=== PATIENT | female | born 1975 | race African-American/Black ===

== ENCOUNTER 2016-04-24 15:28 | Inpatient (IN) | payer MEDICARE, OTHER ==
[~2016-04-24 15:28] MED LIST: ROCURONIUM BROMIDE INJ 50 MG/5 ML VIAL IV ONE
[2016-04-24] MEDS ORDERED: ETOMIDATE INJ/PF 20 MG/10 ML SDV IV ONE ×2 (15:34→17:33)
[2016-04-24] MEDS ORDERED: LIDOCAINE 2% INJ-PF (100 MG/5 ML) SYRINGE ONE (15:35)
[2016-04-24] MEDS ORDERED: DEXTROSE 50%-WATER 25 GM/50 ML DISP.SYRIN IV ONE ×2 (15:42→17:38)
[2016-04-24] MEDS ORDERED: PROPOFOL 100 ML IV ONE (15:52)
[2016-04-24] MEDS ORDERED: ROCURONIUM BROMIDE INJ 50 MG/5 ML VIAL IV ONE (15:58)
[2016-04-24 16:13] LABS: ABSOLUTE EOSINOPHILS # (AUTO) 0.2 10^3/uL (0.0-0.6); ABSOLUTE LYMPHOCYTES (AUTO) 3.6 10^3/uL (0.5-4.7); ABSOLUTE MONOCYTES (AUTO) 0.6 10^3/uL (0.1-1.4); ABSOLUTE NEUT (AUTO) 12.2 10^3/uL (1.7-8.2); BASOPHILS % (AUTO) 0.2 % (0-2); HEMATOCRIT 34.2 % (36.0-47.0); HEMOGLOBIN 10.2 g/dL (12.0-15.5); HGB HCT DIFFERENCE -3.6; LYMPHOCYTES % (AUTO) 21.7 % (13-45); MEAN CORPUSCULAR HEMOGLOBIN 27.7 pg (27.0-33.4); MEAN CORPUSCULAR HGB CONC 29.9 g/dL (32.0-36.0); MEAN CORPUSCULAR VOLUME 93 fl (80-97); MONOCYTES % (AUTO) 3.4 % (3-13); RED CELL DISTRIBUTION WIDTH 20.1 % (11.5-14.0); SEGMENTED NEUTROPHILS % (AUTO) 73.7 % (42-78); WHITE BLOOD COUNT 16.5 10^3/uL (4.0-10.5)
[2016-04-24] MEDS ORDERED: PIPERACILLIN/TAZOBACTAM 3.375 GM VIAL IV ONE (16:29)
[2016-04-24] MEDS ORDERED: VANCOMYCIN HCL INJ 1000 MG VIAL IV ONE (16:29)
--- NOTE | 2016-04-24 16:52 | ER Document Report ---
ED Respiratory Problem - General Chief Complaint: Shortness Of Breath Stated Complaint: DIFFICULTY BREATHING Notes: The patient is a 40-year-old female, PMHx ESRD (TuThSa), presents from dialysis after she started to have shortness of breath over the past hour. She received 3/4s of her dialysis session before EMS was called. She received a DuoNeb some relief her symptoms. On arrival to the emergency room, the patient is tachypneic, somnolent and will not respond to questions or follow commands. Her Accu-Chek is 42, which improves after a bolus of D50. Family members at home have flu symptoms. Unable to obtain any additional history due to patient' s condition. TRAVEL OUTSIDE OF THE [place] IN LAST 30 DAYS: No - Related Data Allergies/Adverse Reactions: Shellfish * [Shellfish] Allergy (Verified 02/22/16 10:12) Past Medical History - General Information source: Relative, Transfer Record Cannot obtain history due to: Unstable vital signs - Social History Smoking Status: Unknown if Ever Smoked Family History: Reviewed & Not Pertinent - Past Medical History Cardiac Medical History: Reports: Hx DVT, Hx Hypercholesterolemia, Hx Hypertension Pulmonary Medical History: Reports: Hx Asthma, Hx Pneumonia Renal/ Medical History: Reports: Hx End Stage Renal Disease, Hx Hemodialysis, Hx Peritoneal Dialysis Malignancy Medical History: Reports: Hx Lung Cancer GI Medical History: Reports: Hx Gastroesophageal Reflux Disease Musculoskeltal Medical History: Reports Hx Gout Infectious Medical History: Denies: Hx MRSA Past Surgical History: Reports: Hx Abdominal Surgery - umbilical hernia repair, Hx Section, Hx Cholecystectomy, Hx Inguinal Hernia - Immunizations Hx Diphtheria, Pertussis, Tetanus Vaccination: Yes Hx Pneumococcal Vaccination: 06/12/12 Review of Systems - Review of Systems -: Yes ROS unobtainable due to patient's medical condition Physical Exam - Vital signs Vitals: Resp Pulse Ox 30 H 65 L 04/24/16 15:30 04/24/16 15:30 HR 121, BP 178/118, Pulse Ox 84% on NRB, RR 24 - Notes Notes: PHYSICAL EXAMINATION: GENERAL: Ill-appearing. HEAD: Atraumatic, normocephalic. EYES: Pupils equal round and reactive to light, extraocular movements intact, sclera anicteric, conjunctiva are normal. ENT: nares patent, oropharynx clear without exudates. Moist mucous membranes. NECK: Goiter, Normal range of motion, supple without lymphadenopathy LUNGS: Tachypnea, B/L crackles and rhonchi, Dialysis catheter over left chest wall HEART: Regular rhythm, tachypcardia ABDOMEN: Soft, nontender, normoactive bowel sounds. No guarding, no rebound. No masses appreciated. EXTREMITIES: Normal range of motion, no pitting or edema. No cyanosis. NEUROLOGICAL: Unable to follow commands SKIN: Warm, Dry, normal turgor, no rashes or lesions noted. Course - Re-evaluation Re-evalutation: On arrival to the emergency room, patient immediately intubated due to decreased mental status and hypoxia to low 80% on nonrebreather. Patient with large right-sided pneumonia and SIRS criteria. She does not require 30 cc/kg due to normal blood pressure and normal lactate. Patient will need gentle hydration due to ESRD. Spoke to patient's family and answered all questions. 04/24/16 17:[address] Segundo and he has accepted patient under Dr. Spears's service. - Vital Signs Vital signs: Temp Pulse Resp BP Pulse Ox 18 104/88 H 100 04/24/16 17:39 04/24/16 18:39 04/24/16 18:39 - Laboratory Result Diagrams: 04/24/16 15:41 04/24/16 16:45 Laboratory results interpreted by me: 04/24/16 04/24/16 04/24/16 15:41 16:45 16:45 WBC 16.5 H RBC 3.70 L Hgb 10.2 L Hct 34.2 L MCHC 29.9 L RDW 20.1 H Absolute Neutrophils 12.2 H VBG pH 7.21 L VBG pCO2 76.4 H* BUN 27 H Creatinine 2.09 H Est GFR ( Amer) 31 L Est GFR (Non-Af Amer) 26 L Glucose 181 H Calcium 7.9 L Alkaline Phosphatase 162 H Albumin 2.7 L - Diagnostic Test Radiology reviewed: Image reviewed, Reports reviewed Radiology results interpreted by me: CXR: Increased lung opacities of right middle and lower lobes - EKG Interpretation by Me EKG shows normal: Sinus rhythm, Intervals - LAFB Rate: Tachycardia Voltage: Consistant with LVH When compared to previous EKG there are: No significant change Procedures - Intubation Orotracheal Airway evaluation: Normal anatomy Mallampati Classification: Class 3 Medications: Etomidate, Other - Rocuronium Intubation method: Orotracheal Blade type: Gaye Blade size: 4 ETT size: 7.0 ETT secured at: Teeth ETT secured at (cm): 22 Breath Sounds after Intubation: Equal End tidal CO2 confirmed: Yes Ventilator settings: AC Tidal volume: 400 FiO2: 100 Respirations: 14 PEEP: 8 Post Intubation Xray: Yes Intubation Complications: No complications - Additional Procedures IO insertion Additional Procedures: IO insertion Notes: IO placed by MD into right humerus without complications. Critical Care Note - Critical Care Note Total time excluding time spent on procedures (mins): 55 Discharge - Discharge Clinical Impression: Hypoxia Pneumonia Qualifiers: Pneumonia type: due to unspecified organism Laterality: right Lung location: unspecified part of lung Qualified Code(s): J18.9 - Pneumonia, unspecified organism Hypercapnic respiratory failure Qualifiers: Chronicity: acute Qualified Code(s): J96.02 - Acute respiratory failure with hypercapnia Condition: Critical Disposition: ADMITTED INPATIENT Admitting Provider: [facility] Unit Admitted: ICU
[2016-04-24 17:10] LABS: VENOUS BLOOD BASE EXCESS 0.2 mmol/L; VENOUS BLOOD HCO3 29.7 mmol/L (20-32); VENOUS BLOOD PH 7.21 (7.30-7.42)
[2016-04-24 17:12] LABS: VENOUS BLOOD PCO2 76.4 mmHg (35-63)
[2016-04-24 17:24] LABS: ALANINE AMINOTRANSFERASE 20 U/L (9-52); ALBUMIN 2.7 g/dL (3.5-5.0); ALKALINE PHOSPHATASE 162 U/L (38-126); ANION GAP 10 (5-19); ASPARTATE AMINO TRANSFERASE 23 U/L (14-36); BILIRUBIN,TOTAL 0.7 mg/dL (0.2-1.3); BLOOD UREA NITROGEN 27 mg/dL (7-20); CALCIUM 7.9 mg/dL (8.4-10.2); CARBON DIOXIDE 28 mmol/L (22-30); CHLORIDE 100 mmol/L (98-107); CREATINE KINASE 99 U/L (30-135); CREATININE RESULT 2.09 mg/dL (0.52-1.25); GLUCOSE 181 mg/dL (75-110); POTASSIUM 3.6 mmol/L (3.6-5.0); SODIUM 138.4 mmol/L (137-145); TOTAL PROTEIN 6.8 g/dL (6.3-8.2)
[2016-04-24] MEDS ORDERED: PROPOFOL INJ 200 MG/20 ML VIAL IV ONE (17:33)
[2016-04-24 17:37] LABS: CREATINE KINASE MB 3.79 ng/mL (<4.55); TROPONIN I 0.026 ng/mL
[2016-04-24] MEDS ORDERED: LIDOCAINE 2% INJ (20 MG/ML) 20 ML MDV INJ ONE (17:38)
[2016-04-24 18:06] LABS: ADD HIVPANEL? NO; HIV (1 AND 2) ANTIBODY NEGATIVE (NEGATIVE)
[2016-04-24] MEDS ORDERED: NORMAL SALINE 1000 ML 1,000 ML IV ONE (19:00)
[2016-04-24] MEDS: FENTANYL CITRATE INJ/PF 100 MCG/2 ML AMPUL IV PRN ×2 (19:32→22:12)
--- NOTE | 2016-04-24 19:35 | EKG REPORT ---
SEVERITY:- ABNORMAL ECG - SINUS TACHYCARDIA ATRIAL PREMATURE COMPLEX PROBABLE LEFT ATRIAL ABNORMALITY LEFT ANTERIOR FASCICULAR BLOCK LVH WITH SECONDARY REPOLARIZATION ABNORMALITY : Confirmed by: John Pérez MD 24-Apr-2016 19:34:47
[2016-04-24 20:19] LABS: PROTHROMBIN TIME 16.5 SEC (11.4-15.4)
[2016-04-24 20:20] LABS: PARTIAL THROMBOPLASTIN TIME 34.9 SEC (23.5-35.8)
--- NOTE | 2016-04-24 21:09 | PDOC H&P ---
History of Present Illness Admission Date/PCP: 04/24/16 17:13 JORGE ALBERTO GARZA MD Patient complains of: Worsening shortness of breath History of Present Illness: FELISA MILES is a 40 year old female who was transported by EMS service from dialysis center due to development f SOB while on hemodialysis procedure. Patient demonstrated hypoxemia enroute necessitating administration of bronchodilator. Upon arrival in the ED there was episode of hypoglycemia, tachycardia and tachypnea. Her hypoglycemia was adequately and immediately corrected with dextrose solution infusion. In view of her associated altered mentation and concern for possible aspiration she was eventually intubated to protect her airway and address her hypoxemia. There is history of family member with flu like symptoms at home. Her comorbidites include lung cancer, Scleroderma with interstitial lung disease, ESRD on hemodialysis, hypertension, hyperlipidemia, GERD, Gouty arthritis Past Medical History Cardiac Medical History: Reports: DVT, Hyperlipidema, Hypertension Pulmonary Medical History: Reports: Asthma, Pneumonia Renal/ Medical History: Reports: End Stage Renal Disease Malignancy Medical History: Reports: Lung Cancer GI Medical History: Reports: Gastroesophageal Reflux Disease Musculoskeltal Medical History: Reports: Gout Infectious Medical History: Denies: Methicillin-Resistant Staph Aureus Past Surgical History Past Surgical History: Reports: Section, Cholecystectomy Social History Lives with: Spouse/Significant other Smoking Status: Unknown if Ever Smoked Frequency of Alcohol Use: None Hx Recreational Drug Use: No Hx Prescription Drug Abuse: No - Advance Directive Resuscitation Status: Full Code Family History Family History: Reviewed & Not Pertinent Parental Family History Reviewed: Yes Children Family History Reviewed: Yes Sibling(s) Family History Reviewed.: Yes Medication/Allergy Home Medications: Albuterol Sulfate [Ventolin HFA] 1 puff IH Q4HP PRN #17 gm 06/19/12 Lisinopril 20 mg PO DAILY 08/19/12 Prednisone 10 mg PO DAILY 08/19/12 Aspirin 81 mg PO DAILY 08/23/12 Lovastatin [Mevacor] 20 mg PO DAILY 08/23/12 Sildenafil Citrate [Viagra] 25 mg PO TID 08/23/12 Albuterol Sulfate [Albuterol Sulfate 2.5mg/3 mL] 1 vial NEB Q6HP PRN 08/25/12 Lansoprazole [Prevacid 30 mg Odt Tablet] 30 mg PO BIDACBS 08/25/12 Amlodipine Besylate [Norvasc 10 mg Tablet] 10 mg PO DAILY 12/02/12 Hydrocodone Bit/Acetaminophen [Lortab 7.5-500 mg/15 ml Elixir] 5 ml PO Q4 PRN # 160 solution 12/02/12 Hydrocodone/Acetaminophen [Lortab 2.5-167 mg/5 ml Oral Soln Udcup] 5 ml PO QID # 60 ml 06/28/13 Calcium Carbonate [Tums Chewable 500 mg Tab.chew] 500 mg PO Q12 #180 tab.chew Ipratropium/Albuterol Sulfate [Duoneb 3 ml Ampul] 3 ml NEB RTQ6 #120 vial.neb Metoprolol Succinate [Toprol Xl] 200 mg PO DAILY #90 tab.sr.24h 03/03/16 Allergies/Adverse Reactions: Shellfish * [Shellfish] Allergy (Verified 02/22/16 10:12) Review of Systems ROS unobtainable: Due to endotracheal tube, Due to mental status - on Diprivan infusion Physical Exam Vital Signs: Temp Pulse Resp BP Pulse Ox 18 104/88 H 100 04/24/16 17:39 04/24/16 18:39 04/24/16 18:39 Physical Exam: Acutely ill looking, intubated and vent supported. Sedated on Diprivan infusion. ET & OG tubes in situ. General appearance: PRESENT: thin Head exam: PRESENT: atraumatic, normocephalic Eye exam: PRESENT: conjunctiva pink, EOMI, PERRLA Mouth exam: PRESENT: moist Respiratory exam: PRESENT: crackles - at lung bases, decreased breath sounds - at lung bases Cardiovascular exam: PRESENT: RRR. ABSENT: diastolic murmur, rubs, systolic murmur GI/Abdominal exam: PRESENT: normal bowel sounds, soft Extremities exam: PRESENT: full ROM, pedal edema Musculoskeletal exam: PRESENT: deformity - related to arthritic changes Neurological exam: PRESENT: altered - on Diprivan infusion Skin exam: PRESENT: dry, warm Results Impressions: Chest X-Ray 04/24/16 15:50 IMPRESSION: 1. Increased pulmonary opacities of the right mid and lower lung with improved aeration of the apical lungs relative to 03/12/2016 radiograph. 2. Lines and tubes as above. Assessment & Plan - Diagnosis (1) SIRS due to infectious process with acute organ dysfunction Is this a current diagnosis for this admission?: YesPlan: See admitting physician orders for details. (2) Lobar pneumonia, unspecified organism Is this a current diagnosis for this admission?: YesPlan: See admitting physician orders for details. (3) HTN (hypertension) Qualifiers: Hypertension type: essential hypertension Qualified Code(s): I10 - Essential (primary) hypertension Is this a current diagnosis for this admission?: YesPlan: See admitting physician orders for details. (4) HLD (hyperlipidemia) Qualifiers: Hyperlipidemia type: pure hypercholesterolemia Qualified Code(s): E78.00 - Pure hypercholesterolemia, unspecified; E78.0 - Pure hypercholesterolemia Is this a current diagnosis for this admission?: YesPlan: See admitting physician orders for details. (5) Gouty arthritis Is this a current diagnosis for this admission?: YesPlan: See admitting physician orders for details. (6) End-stage renal disease (ESRD) Is this a current diagnosis for this admission?: YesPlan: See admitting physician orders for details. (7) Malignant neoplasm of lung Qualifiers: Laterality: right Lung location: lower lobe of lung Qualified Code(s): C34.31 - Malignant neoplasm of lower lobe, right bronchus or lung Is this a current diagnosis for this admission?: YesPlan: See admitting physician orders for details. (8) Systemic sclerosis with lung involvement Is this a current diagnosis for this admission?: YesPlan: See admitting physician orders for details. - Time Time Spent: 50 to 70 Minutes - CODE STATUS was discussed, patient remains full code. Surrogate decision-maker unchanged. Multiple medical problems were addressed.More than 50% of the time spent coordinating care, discussing management plans with involved caregivers. Management plans discussed with involved personnels. Medical decision making was of high complexity. Medications reviewed and adjusted accordingly: Yes Anticipated discharge: Other Within: Other - Inpatient Certification Based on my medical assessment, after consideration of the patient's comorbidities, presenting symptoms, or acuity I expect that the services needed warrant INPATIENT care.: Yes I certify that my determination is in accordance with my understanding of Medicare's requirements for reasonable and necessary INPATIENT services [42 CFR 412.3e].: Yes Medical Necessity: Need Close Monitoring Due to Risk of Patient Decompensation, Need For IV Fluids, Need For Continuous Telemetry Monitoring, Need for Nebulizer Therapy and Monitoring of Response, Need for IV Antibiotics, Risk of Complication if Not Cared For in Hospital Post 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
[2016-04-24] MEDS ORDERED: ACETAMINOPHEN 650 MG SUPP.RECT PR PRN (21:21)
[2016-04-24] MEDS ORDERED: ACETAMINOPHEN 650 MG SUPP.RECT PR ONE (21:24)
[2016-04-24] MEDS: CLINDAMYCIN 600 MG/D5W RTU 50 ML IV SCH (22:11)
[2016-04-24] MEDS: HEPARIN SOD (PORCINE) 5,000 UNIT/ML 1 ML SYRINGE SUBCUT SCH (22:11)
[2016-04-25] MEDS: FENTANYL CITRATE INJ/PF 100 MCG/2 ML AMPUL IV PRN ×7 (00:15→08:44)
[2016-04-25] MEDS: PROPOFOL 100 ML IV PRN ×3 (01:56→16:03)
[2016-04-25] MEDS: CLINDAMYCIN 600 MG/D5W RTU 50 ML IV SCH ×3 (05:58→21:29)
[2016-04-25] MEDS: LANSOPRAZOLE 30 MG TAB.RAP.DR PO SCH (05:59)
[2016-04-25] MEDS: HEPARIN SOD (PORCINE) 5,000 UNIT/ML 1 ML SYRINGE SUBCUT SCH ×3 (05:59→21:30)
[2016-04-25] MEDS: NORMAL SALINE 1000 ML 1,000 ML IV PRN (06:00)
[2016-04-25 06:30] LABS: ALANINE AMINOTRANSFERASE 22 U/L (9-52); ALBUMIN 2.4 g/dL (3.5-5.0); ALKALINE PHOSPHATASE 164 U/L (38-126); ANION GAP 10 (5-19); ASPARTATE AMINO TRANSFERASE 18 U/L (14-36); BILIRUBIN,TOTAL 0.5 mg/dL (0.2-1.3); BLOOD UREA NITROGEN 33 mg/dL (7-20); CALCIUM 7.6 mg/dL (8.4-10.2); CARBON DIOXIDE 26 mmol/L (22-30); CHLORIDE 102 mmol/L (98-107); CREATININE RESULT 2.95 mg/dL (0.52-1.25); GLUCOSE 73 mg/dL (75-110); MAGNESIUM 1.7 mg/dL (1.6-2.3); PHOSPHORUS 2.4 mg/dL (2.5-4.5); POTASSIUM 3.4 mmol/L (3.6-5.0); SODIUM 137.9 mmol/L (137-145); TOTAL PROTEIN 6.2 g/dL (6.3-8.2)
[2016-04-25 08:43] LABS: ABSOLUTE LYMPHOCYTES (AUTO) 1.1 10^3/uL (0.5-4.7); ABSOLUTE MONOCYTES (AUTO) 0.3 10^3/uL (0.1-1.4); ABSOLUTE NEUT (AUTO) 10.7 10^3/uL (1.7-8.2); BASOPHILS % (AUTO) 0.4 % (0-2); EOSINOPHILS % (AUTO) 0.4 % (0-6); HEMOGLOBIN 9.9 g/dL (12.0-15.5); HGB HCT DIFFERENCE -2.3; MEAN CORPUSCULAR HEMOGLOBIN 27.5 pg (27.0-33.4); MONOCYTES % (AUTO) 2.8 % (3-13); RED BLOOD COUNT 3.62 10^6/uL (3.72-5.28); RED CELL DISTRIBUTION WIDTH 18.8 % (11.5-14.0); SEGMENTED NEUTROPHILS % (AUTO) 87.4 % (42-78); WHITE BLOOD COUNT 12.3 10^3/uL (4.0-10.5)
[2016-04-25 08:44] LABS: MEAN CORPUSCULAR VOLUME 89 fl (80-97)
--- NOTE | 2016-04-25 09:27 | PDOC PROGRESS REPORT ---
Subjective Progress Note for:: 04/25/16 Subjective:: Remain intubated and vent supported. Issue f elevated temperature since last clinical evaluation. Remain on IV Rocephin and Cleocin coverage. There was raised concern about unequal pupils with left greater than right necessitating CT scan of head for r/o intracranial pathology. There is copious tracheal secretion. Physical Exam Vital Signs: Temp Pulse Resp BP Pulse Ox 100.6 F H 118 H 12 102/89 H 100 04/25/16 06:13 04/24/16 22:40 04/25/16 06:13 04/25/16 06:13 04/25/16 06:13 Intake & Output 04/24/16 04/25/16 04/26/16 06:59 06:59 06:59 Intake Total 503 Output Total 100 Balance 403 Weight 47.4 kg Physical Exam: Acutely ill looking, intubated and vent supported. ET & OG tubes in situ. Remain on IV Diprivan infusion for sedation. General appearance: PRESENT: thin Head exam: PRESENT: atraumatic, normocephalic Eye exam: PRESENT: conjunctiva pink, EOMI, PRRLA with inequality in size left > right. Mouth exam: PRESENT: moist Respiratory exam: PRESENT: crackles - at lung bases, decreased breath sounds - at lung bases Cardiovascular exam: PRESENT: RRR. ABSENT: diastolic murmur, rubs, systolic murmur GI/Abdominal exam: PRESENT: normal bowel sounds, soft Extremities exam: PRESENT: full ROM, pedal edema Musculoskeletal exam: PRESENT: deformity - related to arthritic changes Neurological exam: PRESENT: altered - on Diprivan infusion but move all extremities Skin exam: PRESENT: dry, warm Results Laboratory Results: 04/25/16 08:31 04/25/16 06:00 04/25/16 04/25/16 04/25/16 06:00 06:00 08:31 WBC Cancelled 12.3 H RBC Cancelled 3.62 L Hgb Cancelled 9.9 L Hct Cancelled 32.0 L MCV Cancelled 89 D MCH Cancelled 27.5 MCHC Cancelled 31.0 L RDW Cancelled 18.8 H Plt Count Cancelled 256 Seg Neutrophils % Cancelled 87.4 H Lymphocytes % Cancelled 9.0 L Monocytes % Cancelled 2.8 L Eosinophils % Cancelled 0.4 Basophils % Cancelled 0.4 Absolute Neutrophils Cancelled 10.7 H Absolute Lymphocytes Cancelled 1.1 Absolute Monocytes Cancelled 0.3 Absolute Eosinophils Cancelled 0.0 Absolute Basophils Cancelled 0.0 Sodium 137.9 Potassium 3.4 L Chloride 102 Carbon Dioxide 26 Anion Gap 10 BUN 33 H Creatinine 2.95 H Est GFR ( Amer) 21 L Est GFR (Non-Af Amer) 17 L Glucose 73 L Calcium 7.6 L Phosphorus 2.4 L Magnesium 1.7 Total Bilirubin 0.5 AST 18 ALT 22 Alkaline Phosphatase 164 H Total Protein 6.2 L Albumin 2.4 L 04/24/16 21:21 Troponin I 0.068 Impressions: Chest X-Ray 04/25/16 06:00 IMPRESSION: 1. Interval improvement of the diffuse parenchymal and interstitial opacities throughout the lungs comparison the prior study with the majority the opacities noted in the bases. 2. Support tubes and lines as above. Head CT 04/25/16 07:38 IMPRESSION: NORMAL BRAIN CT WITHOUT CONTRAST. Assessment & Plan - Diagnosis (1) SIRS due to infectious process with acute organ dysfunction Is this a current diagnosis for this admission?: YesPlan: See attending physician orders for details. (2) Lobar pneumonia, unspecified organism Is this a current diagnosis for this admission?: YesPlan: See attending physician orders for details. Improving chest X ray opacities. I discussed case with Dr. Estrada, warehouse attendant, for input in care. (3) HTN (hypertension) Qualifiers: Hypertension type: essential hypertension Qualified Code(s): I10 - Essential (primary) hypertension Is this a current diagnosis for this admission?: Yes (4) HLD (hyperlipidemia) Qualifiers: Hyperlipidemia type: pure hypercholesterolemia Qualified Code(s): E78.00 - Pure hypercholesterolemia, unspecified; E78.0 - Pure hypercholesterolemia Is this a current diagnosis for this admission?: Yes (5) Gouty arthritis Is this a current diagnosis for this admission?: Yes (6) End-stage renal disease (ESRD) Is this a current diagnosis for this admission?: YesPlan: See attending physician orders for details. Follow up on nephrology service consultation request (7) Malignant neoplasm of lung Qualifiers: Laterality: right Lung location: lower lobe of lung Qualified Code(s): C34.31 - Malignant neoplasm of lower lobe, right bronchus or lung Is this a current diagnosis for this admission?: Yes (8) Systemic sclerosis with lung involvement Is this a current diagnosis for this admission?: Yes - Time Time Spent with patient: 25-34 minutes Medications reviewed and adjusted accordingly: Yes Anticipated discharge: Other Within: Other - Inpatient Certification Medical Necessity: Need Close Monitoring Due to Risk of Patient Decompensation, Need For IV Fluids, Need For Continuous Telemetry Monitoring, Need for Nebulizer Therapy and Monitoring of Response, Need for Pain Control, Need for IV Antibiotics, Risk of Complication if Not Cared For in Hospital Post Hospital Care: Other - Plan Summary Plan Summary: Continue current antibiotic and supportive care plan. Her overall prognosis remain guided. She remain full code status as per my discussion with spouse upon admission and expressed patient wish.
[2016-04-25] MEDS: CEFTRIAXONE 1 GM/D5W RTU 50 ML IV SCH (09:49)
[2016-04-25] MEDS: MORPHINE SULFATE 10 MG/ML INJ IV PRN ×2 (11:56→17:22)
[2016-04-26] MEDS ORDERED: HEPARIN SOD (PORCINE) 1,000 UNIT/ML 10 ML VIAL IV PRN (05:00)
[2016-04-26] MEDS: NORMAL SALINE 1000 ML 1,000 ML IV PRN (06:08)
[2016-04-26] MEDS: HEPARIN SOD (PORCINE) 5,000 UNIT/ML 1 ML SYRINGE SUBCUT SCH ×3 (06:17→21:10)
[2016-04-26] MEDS: LANSOPRAZOLE 30 MG TAB.RAP.DR PO SCH (06:21)
[2016-04-26] MEDS: CLINDAMYCIN 600 MG/D5W RTU 50 ML IV SCH ×3 (06:21→21:09)
[2016-04-26] MEDS: PROPOFOL 100 ML IV PRN ×4 (06:24→21:10)
[2016-04-26] MEDS ORDERED: EPOETIN ALFA INJ 20000 UNIT/1 ML VIAL (RENAL) IV PRN (10:31)
[2016-04-26] MEDS ORDERED: DEXTROSE 50%-WATER 25 GM/50 ML DISP.SYRIN IV ONE (11:13)
[2016-04-26] MEDS ORDERED: DEXTROSE 50%-WATER SYRINGE 12.5 GM/25 ML DOSE IV PRN (11:31)
[2016-04-26] MEDS: CEFTRIAXONE 1 GM/D5W RTU 50 ML IV SCH (12:23)
--- NOTE | 2016-04-26 15:28 | PDOC CONSULTATION ---
Consultation Consult Date: 04/26/16 Consult reason:: Hemodialysis in the setting of sepsis. History of Present Illness Admission Date/PCP: 04/24/16 19:37 JORGE ALBERTO GARZA MD History of Present Illness: Mrs. rivera mild his 40 years old -[place] lady with a past medical history significant with significant comorbidity illnesses including scleroderma with interstitial lung disease, systemic lupus, hypertension, recent diagnosis of right lung cancer and ESRD on hemodialysis was brought to the ER with history of progressive shortness of breath. She went into severe respiratory failure and route and had to be intubated. She was found to be hypoglycemic besides hypoxemic and appropriate treatment measures were instituted in the ER and then later transferred to the ICU. She has been begun on multiple antibiotics based on chest x-ray findings of possible broncho- pneumonia. Currently she is intubated and sedated. Therefore history was gathered from going through her nose and discussing with the treating nurse in the ICU. Currently she is undergoing dialysis without any issues. Treatment orders with the with the dialysis nurse. We will plan to remove no fluid and in fact she might have to be made positive towards the end of dialysis as looking at her vital signs.She is also found to be hypoglycemic and D50 has been ordered by me. Past Medical History Cardiac Medical History: Reports: DVT, Hyperlipidemia, Hypertension-primary Pulmonary Medical History: Reports: Asthma, Pneumonia Renal/ Medical History: Reports: End Stage Renal Disease Malignancy Medical History: Reports: Lung Cancer GI Medical History: Reports: Gastroesophageal Reflux Disease Musculoskeltal Medical History: Reports: Gout Infectious Medical History: Denies: Methicillin-resist Staph Aureus Past Surgical History Past Surgical History: Reports: Section, Cholecystectomy Social History Lives with: Spouse/Significant other Smoking Status: Unknown if Ever Smoked Frequency of Alcohol Use: None Hx Recreational Drug Use: No Hx Prescription Drug Abuse: No - Advance Directive Resuscitation Status: Full Code Family History Parental Family History Reviewed: No - She is intubated and sedated. Chart review was done. Children Family History Reviewed: No Sibling(s) Family History Reviewed.: No Medication/Allergy Home Medications: Ipratropium/Albuterol Sulfate [Iprat-Albut 0.5-3(2.5) mg/3 ml] 3 ml NEB Q6 04/26 Lactulose [Enulose 10 gm/15 mL Oral Solution] 30 ml PO Q12 04/26/16 Lorazepam [Ativan 1 mg Tablet] 0.5 mg PO Q8H 04/26/16 Metoprolol Tartrate [Lopressor 100 mg Tablet] 100 mg PO Q12 04/26/16 Allergies/Adverse Reactions: Shellfish * [Shellfish] Allergy (Verified 02/22/16 10:12) Review of Systems Review of Systems: Unable to be obtained from the patient as she is sedated and intubated. Chart review was therefore done. Physical Exam Vital Signs: Temp Pulse Resp BP Pulse Ox 98.8 F 128 H 18 129/97 H 97 04/26/16 12:00 04/26/16 12:00 04/26/16 12:00 04/26/16 12:00 04/26/16 12:15 Intake & Output 04/25/16 04/26/16 04/27/16 06:59 06:59 06:59 Intake Total 503 1389 400 Output Total 100 275 30 Balance 403 1114 370 Weight 47.4 kg 49 kg Exam: Intubated and sedated. Undergoing dialysis now. Neck exam: ABSENT: lymphadenopathy, meningismus, tenderness, thyromegaly, tracheal deviation Respiratory exam: PRESENT: clear to auscultation frankie, rhonchi. ABSENT: crackles , stridor Cardiovascular exam: PRESENT: +S1, +S2 GI/Abdominal exam: PRESENT: normal bowel sounds, soft. ABSENT: distended, firm , tenderness Extremities exam: ABSENT: pedal edema Skin exam: PRESENT: warm. ABSENT: dry, mottled, rash Results Laboratory Results: 04/25/16 08:31 04/25/16 06:00 04/26/16 12:18 Triglycerides 243 H 04/24/16 21:21 Troponin I 0.068 Impressions: Chest X-Ray 04/25/16 06:00 IMPRESSION: 1. Interval improvement of the diffuse parenchymal and interstitial opacities throughout the lungs comparison the prior study with the majority the opacities noted in the bases. 2. Support tubes and lines as above. Head CT 04/25/16 07:38 IMPRESSION: NORMAL BRAIN CT WITHOUT CONTRAST. Assessment & Plan - Diagnosis (1) HTN (hypertension) Qualifiers: Hypertension type: essential hypertension Qualified Code(s): I10 - Essential (primary) hypertension Is this a current diagnosis for this admission?: YesPlan: Stable continue on current medications (2) Hypercapnic respiratory failure Qualifiers: Chronicity: acute Qualified Code(s): J96.02 - Acute respiratory failure with hypercapnia Plan: Intubated and sedated (3) Pneumonia Qualifiers: Pneumonia type: due to unspecified organism Laterality: right Lung location: unspecified part of lung Qualified Code(s): J18.9 - Pneumonia, unspecified organism Plan: On antibiotics awaiting culture for modifications (4) SIRS due to infectious process with acute organ dysfunction Is this a current diagnosis for this admission?: Yes (5) End-stage renal disease (ESRD) Is this a current diagnosis for this admission?: YesPlan: Patient undergoing dialysis now without any issues. Vital signs are stable. Discuss orders with treating nurse. She has hypoglycemia which needs to be corrected with D50. Will remove no fluid and in fact might have to give her fluid back and keep a positive given her septic state. (6) History of lung cancer in adulthood Plan: As per Dr. Garza.. (7) Scleroderma Plan: Associated lung disease . Also history of associated SLE.
[2016-04-26 19:09] LABS: ALANINE AMINOTRANSFERASE 25 U/L (9-52); ALBUMIN 2.2 g/dL (3.5-5.0); ALKALINE PHOSPHATASE 158 U/L (38-126); ANION GAP 11 (5-19); ASPARTATE AMINO TRANSFERASE 22 U/L (14-36); BILIRUBIN,TOTAL 0.5 mg/dL (0.2-1.3); BLOOD UREA NITROGEN 21 mg/dL (7-20); CALCIUM 7.7 mg/dL (8.4-10.2); CARBON DIOXIDE 27 mmol/L (22-30); CHLORIDE 101 mmol/L (98-107); GLUCOSE 41 mg/dL (75-110); POTASSIUM 3.6 mmol/L (3.6-5.0); SODIUM 138.7 mmol/L (137-145)
[2016-04-26 20:00] LABS: ABSOLUTE EOSINOPHILS # (AUTO) 0.2 10^3/uL (0.0-0.6); ABSOLUTE LYMPHOCYTES (AUTO) 0.7 10^3/uL (0.5-4.7); ABSOLUTE MONOCYTES (AUTO) 0.2 10^3/uL (0.1-1.4); ABSOLUTE NEUT (AUTO) 7.4 10^3/uL (1.7-8.2); BASOPHILS % (AUTO) 0.2 % (0-2); EOSINOPHILS % (AUTO) 2.6 % (0-6); HEMOGLOBIN 8.4 g/dL (12.0-15.5); HGB HCT DIFFERENCE -1.8; LYMPHOCYTES % (AUTO) 8.4 % (13-45); MEAN CORPUSCULAR HEMOGLOBIN 27.5 pg (27.0-33.4); MEAN CORPUSCULAR HGB CONC 31.2 g/dL (32.0-36.0); MEAN CORPUSCULAR VOLUME 88 fl (80-97); MONOCYTES % (AUTO) 2.7 % (3-13); RED BLOOD COUNT 3.06 10^6/uL (3.72-5.28); RED CELL DISTRIBUTION WIDTH 19.7 % (11.5-14.0); SEGMENTED NEUTROPHILS % (AUTO) 86.1 % (42-78); WHITE BLOOD COUNT 8.6 10^3/uL (4.0-10.5)
[2016-04-26 20:06] LABS: ARTERIAL BLOOD BASE EXCESS 0.8 mmol/L; ARTERIAL BLOOD O2 SATURATION 97.9 % (94-98)
--- NOTE | 2016-04-26 22:09 | PDOC TRANSFER SUMMARY ---
General Admission Date/PCP: 04/24/16 19:37 JORGE ALBERTO GARZA MD Admission Date: 04/24/16 Transfer Date: 04/26/16 Accepting Facility: [facility] Res[facility] Status: Full Code - Transfer Diagnosis (1) Acute respiratory failure Is this a current diagnosis for this admission?: Yes (2) Malignant neoplasm of lung Is this a current diagnosis for this admission?: Yes (3) Pulmonary fibrosis Is this a current diagnosis for this admission?: Yes (4) Scleroderma Is this a current diagnosis for this admission?: Yes (5) Systemic sclerosis with lung involvement Is this a current diagnosis for this admission?: Yes - Transfer Medications Home Medications: Ipratropium/Albuterol Sulfate [Iprat-Albut 0.5-3(2.5) mg/3 ml] 3 ml NEB Q6 04/26 Lactulose [Enulose 10 gm/15 mL Oral Solution] 30 ml PO Q12 04/26/16 Lorazepam [Ativan 1 mg Tablet] 0.5 mg PO Q8H 04/26/16 Metoprolol Tartrate [Lopressor 100 mg Tablet] 100 mg PO Q12 04/26/16 Transfer Medications: Current Medications Acetaminophen (Tylenol 650 Mg Supp) 650 mg UT Q4HP PRN PRN Reason: FEVER > 102 Stop: 05/24/16 21:20 Last Admin: 04/24/16 21:30 Dose: 650 mg Dextrose (Dextrose Inj 50% Syringe (25 Gm/50 Ml)) 12.5 gm IV .DIALYSIS PRN; Protocol PRN Reason: POST-DIALYSIS Stop: 04/26/16 23:59 Last Admin: 04/26/16 21:52 Dose: 12.5 gm Epoetin Trung (Procrit Inj 20,000 Unit/1 Ml Vial (Renal)) 10,000 unit IV .DIALYSIS PRN PRN Reason: THIS MED IS NOT "PRN" Stop: 04/26/16 23:59 Last Admin: 04/26/16 11:32 Dose: 10,000 unit Heparin Sodium (Porcine) (Heparin Inj 5,000 Units/Ml 1 Ml Syringe) 5,000 unit SUBCUT Q8 [facility] Stop: 05/24/16 21:59 Last Admin: 04/26/16 21:10 Dose: 5,000 unit Heparin Sodium (Porcine) (Heparin Inj 1,000 Unit/Ml 10 Ml Vial) 4,000 unit IV .DIALYSIS PRN PRN Reason: THIS MED IS NOT "PRN" Stop: 04/26/16 23:59 Last Admin: 04/26/16 11:57 Dose: 4,000 unit Ceftriaxone Sodium/Dextrose (Rocephin Rtu 1 Gm/D5w 50 Ml Premix) 50 mls @ 100 mls/hr IV DAILY [facility] Stop: 05/02/16 09:59 Last Admin: 04/26/16 12:23 Dose: 50 ml Clindamycin Phosphate/Dextrose (Cleocin Rtu 600 Mg/D5w 50 Ml Premix) 50 mls @ 50 mls/hr IV Q8 [facility] Stop: 05/01/16 21:59 Last Admin: 04/26/16 21:09 Dose: 50 ml Sodium Chloride (Nacl 0.9% 1000 Ml Iv Soln) 1,000 mls @ 50 mls/hr IV CONTINUOUS PRN PRN Reason: THIS MED IS NOT "PRN" Stop: 05/24/16 19:41 Last Admin: 04/26/16 06:08 Dose: 1,000 ml Propofol (Diprivan Rtu 1000 Mg/100 Ml Inf.Bottle) 100 mls @ 0 mls/hr IV CONTINUOUS PRN; Titrate PRN Reason: THIS MED IS NOT "PRN" Stop: 05/24/16 20:35 Last Admin: 04/26/16 21:10 Dose: 100 ml Lansoprazole (Prevacid 30 Mg Odt Tablet) 30 mg PO Q6AM [facility] Stop: 05/25/16 05:59 Last Admin: 04/26/16 06:21 Dose: 30 mg Morphine Sulfate (Morphine 10 Mg/Ml Inj) 2 mg IV Q4HP PRN PRN Reason: FOR PAIN Stop: 05/02/16 09:13 Last Admin: 04/25/16 17:22 Dose: 2 mg - Allergies Allergies/Adverse Reactions: Shellfish * [Shellfish] Allergy (Verified 02/22/16 10:12) Hospital Course Hospital Course: Patient was admitted because of acute respiratory failure due to pneumonia, she was intubated on mechanical ventilation and intensive care unit. She has systemic sclerosis complicated with interstitial lung disease and malignant neoplasm of the lung with end-stage renal disease on hemodialysis. Patient is on IV antibiotic, Rocephin and vancomycin, adequate oxygenation is maintained on present mechanical ventilation with the present settings. Patient is being transferred to [facility] because there is no pulmonary presently international logistics coordinator in the hospital. She was hemodialyzed today but very minimal fluid was removed. Physical Exam Vital Signs: Temp Pulse Resp BP Pulse Ox 100.0 F 93 15 115/88 H 100 04/26/16 20:00 04/26/16 20:00 04/26/16 20:00 04/26/16 19:42 04/26/16 20:15 Intake & Output 04/25/16 04/26/16 04/27/16 06:59 06:59 06:59 Intake Total 503 1389 1245 Output Total 100 275 180 Balance 403 1114 1065 Weight 47.4 kg 49 kg Eye exam: PRESENT: PERRLA Respiratory exam: PRESENT: rales Cardiovascular exam: PRESENT: +S1, +S2 GI/Abdominal exam: PRESENT: soft Results Laboratory Results: 04/26/16 19:50 04/26/16 18:43 04/26/16 04/26/16 04/26/16 12:18 18:23 18:43 WBC Cancelled RBC Cancelled Hgb Cancelled Hct Cancelled MCV Cancelled MCH Cancelled MCHC Cancelled RDW Cancelled Plt Count Cancelled Seg Neutrophils % Cancelled Lymphocytes % Cancelled Monocytes % Cancelled Eosinophils % Cancelled Basophils % Cancelled Absolute Neutrophils Cancelled Absolute Lymphocytes Cancelled Absolute Monocytes Cancelled Absolute Eosinophils Cancelled Absolute Basophils Cancelled Carbonic Acid Cancelled HCO3/H2CO3 Ratio Cancelled ABG pH Cancelled ABG pCO2 Cancelled ABG pO2 Cancelled ABG HCO3 Cancelled ABG O2 Saturation Cancelled ABG Base Excess Cancelled FiO2 Cancelled Sodium Potassium Chloride Carbon Dioxide Anion Gap BUN Creatinine Est GFR ( Amer) Est GFR (Non-Af Amer) Glucose Calcium Total Bilirubin AST ALT Alkaline Phosphatase Total Protein Albumin Triglycerides 243 H 04/26/16 04/26/16 04/26/16 18:43 19:50 19:55 WBC 8.6 RBC 3.06 L Hgb 8.4 L Hct 27.0 L MCV 88 MCH 27.5 MCHC 31.2 L RDW 19.7 H Plt Count 256 Seg Neutrophils % 86.1 H Lymphocytes % 8.4 L Monocytes % 2.7 L Eosinophils % 2.6 Basophils % 0.2 Absolute Neutrophils 7.4 Absolute Lymphocytes 0.7 Absolute Monocytes 0.2 Absolute Eosinophils 0.2 Absolute Basophils 0.0 Carbonic Acid 1.19 HCO3/H2CO3 Ratio 21:1 ABG pH 7.42 ABG pCO2 39.7 ABG pO2 103.7 H ABG HCO3 25.2 ABG O2 Saturation 97.9 ABG Base Excess 0.8 FiO2 35% Sodium 138.7 Potassium 3.6 Chloride 101 Carbon Dioxide 27 Anion Gap 11 BUN 21 H Creatinine 2.30 H Est GFR ( Amer) 28 L Est GFR (Non-Af Amer) 23 L Glucose 41 L Calcium 7.7 L Total Bilirubin 0.5 AST 22 ALT 25 Alkaline Phosphatase 158 H Total Protein 6.0 L Albumin 2.2 L Triglycerides 04/24/16 21:21 Troponin I 0.068 Impressions: Head CT 04/25/16 07:38 IMPRESSION: NORMAL BRAIN CT WITHOUT CONTRAST. Chest CT 04/26/16 00:00 IMPRESSION: 1. CHRONIC CHANGES IN THE LUNGS. BILATERAL PLEURAL EFFUSIONS WITH BASILAR INFILTRATES. ROUNDED MASSLIKE DENSITY IN THE RIGHT LOWER LOBE MAY BE DUE TO A LUNG MASS, INFECTION, OR ATELECTASIS. THIS DOES APPEAR TO BE SLIGHTLY LARGER COMPARED TO THE PRIOR STUDY, ALTHOUGH INDISTINCTLY VISUALIZED. 2. CARDIOMEGALY. LARGE PERICARDIAL EFFUSION. THESE FINDINGS APPEAR UNCHANGED. Chest X-Ray 04/26/16 00:00 IMPRESSION: NO CHANGE IN APPEARANCE OF THE CHEST.
[2016-04-27 02:25] VITALS: BP 106/77
[2016-04-27] MEDS: PROPOFOL 100 ML IV PRN (02:38)
== END 2016-04-27 03:25 | disposition short-term general hospital (02) | DRG 871 ==
LOC: ER 15:28 → EH 17:13 → UNDOADMIN 17:13 → ICU 19:37 → EH 21:39 → ICU 21:39
PROVIDERS: ADMIT Internal Medicine; ATTEND Internal Medicine
PROC: 0BH17EZ Insertion of Endotracheal Airway into Trachea, Via Natural or Artificial Opening (ICD-10-PCS; principal; 2016-04-24)
PROC: 5A1945Z Respiratory Ventilation, 24-96 Consecutive Hours (ICD-10-PCS; 2016-04-24)
PROC: 0XH833Z Insertion of Infusion Device into Right Upper Arm, Percutaneous Approach (ICD-10-PCS; 2016-04-24)
PROC: 5A1D00Z (ICD-10-PCS; 2016-04-26)
DX: A41.9 Sepsis, unspecified organism (principal); J18.9 Pneumonia, unspecified organism; J96.02 Acute respiratory failure with hypercapnia; N18.6 End stage renal disease; I12.0 Hypertensive chronic kidney disease with stage 5 chronic kidney disease or end stage renal disease; C34.31 Malignant neoplasm of lower lobe, right bronchus or lung; M34.81 Systemic sclerosis with lung involvement; E78.5 Hyperlipidemia, unspecified; K21.9 Gastro-esophageal reflux disease without esophagitis; J84.10 Pulmonary fibrosis, unspecified; M32.9 Systemic lupus erythematosus, unspecified; M1A.9XX1 Chronic gout, unspecified, with tophus (tophi); Z79.82 Long term (current) use of aspirin; Z79.51 Long term (current) use of inhaled steroids; Z79.52 Long term (current) use of systemic steroids; Z99.2 Dependence on renal dialysis; Z86.718 Personal history of other venous thrombosis and embolism
CPT/HCPCS: 36415; 70450; 71010; 71250; 80053; 82550; 82553; 82803; 82962; 83605; 83735; 84100; 84478; 84484; 85025; 85610; 85730; 86701; 87040; 87070; 87205; 87804; 93005; 93010; 94002; 94003; 96374; 99291; J0696; J1644; J2001; J2270; J2543; J2704; J3010; J3370; J3490; J7030; L3650; Q4081

== ENCOUNTER 2016-05-18 02:16 | Inpatient (IN) | payer MEDICARE, OTHER ==
--- NOTE | 2016-05-18 03:24 | ER Document Report ---
ED General - General Chief Complaint: General Weakness Stated Complaint: WEAKNESS Mode of Arrival: Medic Information source: Patient, Relative - Notes: Patient presents to the emergency department via EMS for change in LOC. Hospital reports for the last couple days. Patient has been lethargic. He reports she complained of having hot spells. When he heard a loud bang and he found patient on the floor. Patient was unconscious, incontinent of stool and urine. They cleaned patient up she complained of some nausea, had dry heaves, she took her antinausea medicine. He denies fever vomiting diarrhea. He reports she started taking Zoloft 3 days ago. Patient reports she's also take amoxicillin. Patient reports she has not been eating or drinking that much because she was thrush and it hurts her mouth. She is taking amoxicillin. Patient has a history of scleroderma. Patient also history of lung cancer last chemotherapy was over a year ago. Patient also has end-stage renal disease and on dialysis. TRAVEL OUTSIDE OF THE [place] IN LAST 30 DAYS: No - HPI Onset: Just prior to arrival Onset/Duration: Sudden Quality of pain: Achy Exacerbated by: Denies Relieved by: Denies Similar symptoms previously: Yes Recently seen / treated by doctor: Yes - Related Data Allergies/Adverse Reactions: Shellfish * [Shellfish] Allergy (Verified 02/22/16 10:12) Past Medical History - General Information source: Patient - Social History Smoking Status: Unknown if Ever Smoked Cigarette use (# per day): No Frequency of alcohol use: None Drug Abuse: None Lives with: Family Family History: Reviewed & Not Pertinent - Past Medical History Cardiac Medical History: Reports: Hx DVT, Hx Hypercholesterolemia, Hx Hypertension Pulmonary Medical History: Reports: Hx Asthma, Hx Pneumonia Renal/ Medical History: Reports: Hx End Stage Renal Disease, Hx Hemodialysis, Hx Peritoneal Dialysis Malignancy Medical History: Reports: Hx Lung Cancer GI Medical History: Reports: Hx Gastroesophageal Reflux Disease Musculoskeltal Medical History: Reports Hx Gout Infectious Medical History: Denies: Hx MRSA Past Surgical History: Reports: Hx Abdominal Surgery - umbilical hernia repair, Hx Section, Hx Cholecystectomy, Hx Inguinal Hernia - Immunizations Hx Diphtheria, Pertussis, Tetanus Vaccination: Yes Hx Pneumococcal Vaccination: 06/12/12 Review of Systems - Review of Systems Notes: Review HPI for review of systems., All other systems negative Physical Exam - Vital signs Vitals: Resp Pulse Ox 20 94 05/18/16 04:00 05/18/16 04:00 - General General appearance: Other - ill looking, cachectic In distress: None - HEENT Head: Normocephalic Conjunctiva: No: Injected Extraocular movements intact: Yes Ears: Normal Mouth/Lips: Normal. No: Angioedema Mucous membranes: Moist, Other - thrush Pharynx: Normal Neck: Normal - Respiratory Respiratory status: No respiratory distress Chest status: Nontender Breath sounds: Decreased air movement Chest palpation: Normal - Cardiovascular Rhythm: Regular Heart sounds: Normal auscultation Murmur: No - Abdominal Inspection: Normal Bowel sounds: Normal Tenderness: Nontender Organomegaly: No organomegaly - Back Back: CVA tenderness - bilateral - Extremities General upper extremity: Normal ROM General lower extremity: Normal ROM - Neurological Neuro grossly intact: Yes Cognition: Normal Orientation: AAOx4 [place] Coma Scale Eye Opening: Spontaneous Maru Coma Scale Verbal: Oriented Maru Coma Scale Motor: Obeys Commands [place] Coma Scale Total: 15 Speech: Normal Motor strength normal: LUE, RUE, LLE, RLE Sensory: Normal - Psychological Associated symptoms: Normal affect, Normal mood - Skin Skin Temperature: Warm Skin Moisture: Dry Skin Color: Normal Course - Re-evaluation Re-evalutation: 05/18/16 04:46 I have consulted the attending provider dr benson, per [facility] guidelines Dr. Spears contacted for admission. He agrees to admission as long as Dr. Isaías Alaniz agrees with dialysis tomorrow. Dr. Isaías Alaniz contacted, he agrees with admission and will dialyze patient tomorrow 05/18/16 06:35 Dr Schwartz here in the ED for orders - Vital Signs Vital signs: Temp Pulse Resp BP Pulse Ox 97.4 F 18 108/77 94 05/18/16 04:30 05/18/16 06:00 05/18/16 06:00 05/18/16 06:00 - Laboratory Result Diagrams: 05/18/16 03:21 05/18/16 03:21 Laboratory results interpreted by me: 05/18/16 05/18/16 05/18/16 03:21 03:21 03:21 WBC 12.0 H Hgb 11.6 L MCHC 31.0 L RDW 22.4 H Plt Count 137 L Seg Neuts % (Manual) 89 H Lymphocytes % (Manual) 8 L Abs Neuts (Manual) 10.7 H PT 25.5 H Potassium 6.6 H* Carbon Dioxide 21 L Anion Gap 21 H BUN 98 H Creatinine 5.17 H Est GFR ( Amer) 11 L Est GFR (Non-Af Amer) 9 L Glucose 194 H POC Glucose Calcium 7.9 L AST 116 H ALT 202 H Alkaline Phosphatase 280 H Urine Protein Urine Blood Ur Leukocyte Esterase 05/18/16 05/18/16 04:46 05:25 WBC Hgb MCHC RDW Plt Count Seg Neuts % (Manual) Lymphocytes % (Manual) Abs Neuts (Manual) PT Potassium Carbon Dioxide Anion Gap BUN Creatinine Est GFR ( Amer) Est GFR (Non-Af Amer) Glucose POC Glucose 166 H Calcium AST ALT Alkaline Phosphatase Urine Protein >=500 H Urine Blood SMALL H Ur Leukocyte Esterase TRACE H - Diagnostic Test Radiology reviewed: Image reviewed, Reports reviewed Discharge - Discharge Clinical Impression: Hyperkalemia, End-stage renal disease (ESRD) Disposition: ADMITTED INPATIENT Admitting Provider: [facility] Unit Admitted: ICU
[2016-05-18 03:36] LABS: PROTHROMBIN TIME 25.5 SEC (11.4-15.4)
[2016-05-18 03:46] LABS: HEMATOCRIT 37.3 % (36.0-47.0); HEMOGLOBIN 11.6 g/dL (12.0-15.5); HGB HCT DIFFERENCE -2.5; MEAN CORPUSCULAR HEMOGLOBIN 28.2 pg (27.0-33.4); RED CELL DISTRIBUTION WIDTH 22.4 % (11.5-14.0)
[2016-05-18 03:48] LABS: MEAN CORPUSCULAR VOLUME 91 fl (80-97)
[2016-05-18 03:53] LABS: BASOPHILS % (MANUAL) 0 % (0-2); EOSINOPHILS % (MANUAL) 0 % (0-6); LYMPHOCYTES % (MANUAL) 8 % (13-45); TOTAL CELLS COUNTED 100
[2016-05-18 03:54] LABS: ANISOCYTOSIS 2+; OVALOCYTES SLIGHT; POIKILOCYTOSIS SLIGHT; POLYCHROMASIA SLIGHT; SCHISTOCYTES SLIGHT
[2016-05-18 03:55] LABS: ALANINE AMINOTRANSFERASE 202 U/L (9-52); ALBUMIN 3.8 g/dL (3.5-5.0); ALKALINE PHOSPHATASE 280 U/L (38-126); ASPARTATE AMINO TRANSFERASE 116 U/L (14-36); BILIRUBIN,DIRECT 0.1 mg/dL (0.0-0.3); BILIRUBIN,TOTAL 1.3 mg/dL (0.2-1.3); BLOOD UREA NITROGEN 98 mg/dL (7-20); CALCIUM 7.9 mg/dL (8.4-10.2); CARBON DIOXIDE 21 mmol/L (22-30); CHLORIDE 100 mmol/L (98-107); CREATINE KINASE 55 U/L (30-135); CREATINE KINASE MB 3.38 ng/mL (<4.55); CREATININE RESULT 5.17 mg/dL (0.52-1.25); GLUCOSE 194 mg/dL (75-110); SODIUM 142.3 mmol/L (137-145); TOTAL PROTEIN 7.1 g/dL (6.3-8.2)
[2016-05-18 04:00] LABS: ANION GAP 21 (5-19)
[2016-05-18 04:03] LABS: POTASSIUM 6.6 mmol/L (3.6-5.0)
[2016-05-18 04:04] LABS: TROPONIN I 0.039 ng/mL
[2016-05-18] MEDS ORDERED: CALCIUM GLUCONATE 1000 MG/10 ML INJ IV ONE (04:26)
[2016-05-18] MEDS ORDERED: INSULIN REG, HUMAN 100 UNIT/ML 3 ML VIAL (PYX) IV ONE (04:26)
[2016-05-18 05:40] LABS: APPEARANCE,URINE SLIGHTLY-CLOUDY; BILIRUBIN,URINE NEGATIVE (NEGATIVE); GLUCOSE, URINE NEGATIVE (NEGATIVE); KETONES,URINE NEGATIVE (NEGATIVE); LEUKOCYTE ESTERASE,URINE TRACE (NEGATIVE); NITRITE,URINE NEGATIVE (NEGATIVE); PROTEIN,URINE >=500 mg/dL (NEGATIVE); URINE SPECIFIC GRAVITY 1.011; UROBILINOGEN,URINE NEGATIVE mg/dL (<2.0)
[2016-05-18 07:11] LABS: BLOOD UREA NITROGEN 100 mg/dL (7-20); CALCIUM 8.2 mg/dL (8.4-10.2); CREATININE RESULT 5.07 mg/dL (0.52-1.25); GLUCOSE 196 mg/dL (75-110)
[2016-05-18 07:19] LABS: CARBON DIOXIDE 20 mmol/L (22-30); CHLORIDE 100 mmol/L (98-107); SODIUM 143.1 mmol/L (137-145)
[2016-05-18 07:23] LABS: ANION GAP 23 (5-19)
[2016-05-18 07:26] LABS: POTASSIUM 6.6 mmol/L (3.6-5.0)
[2016-05-18] MEDS ORDERED: NORMAL SALINE 1000 ML 1,000 ML IV SCH (10:00)
[2016-05-18 10:14] LABS: ANION GAP 19 (5-19); BLOOD UREA NITROGEN 103 mg/dL (7-20); CARBON DIOXIDE 20 mmol/L (22-30); CHLORIDE 102 mmol/L (98-107); CREATININE RESULT 5.18 mg/dL (0.52-1.25); GLUCOSE 87 mg/dL (75-110); SODIUM 141.4 mmol/L (137-145)
[2016-05-18 10:19] LABS: POTASSIUM 6.2 mmol/L (3.6-5.0)
[2016-05-18 10:25] LABS: CREATINE KINASE MB 3.12 ng/mL (<4.55); TROPONIN I 0.031 ng/mL
[2016-05-18] MEDS ORDERED: EPOETIN ALFA INJ 20000 UNIT/1 ML VIAL (RENAL) IV PRN (10:33)
[2016-05-18] MEDS ORDERED: HEPARIN SOD (PORCINE) 1,000 UNIT/ML 10 ML VIAL IV PRN (10:36)
[2016-05-18] MEDS ORDERED: EPOETIN ALFA 10,000 UNIT in SYRINGE, DISPOSABLE, 1 EACH IV PRN (11:14)
--- NOTE | 2016-05-18 12:58 | EKG REPORT ---
SEVERITY:- ABNORMAL ECG - SINUS RHYTHM LEFT ATRIAL ABNORMALITY LEFT ANTERIOR FASCICULAR BLOCK LVH WITH SECONDARY REPOLARIZATION ABNORMALITY CONSIDER ANTERIOR INFARCT BORDERLINE PROLONGED QT INTERVAL : Confirmed by: Mckinley Hurd 18-May-2016 12:58:13
[2016-05-18] MEDS ORDERED: HEPARIN SOD (PORCINE) 5,000 UNIT/ML 1 ML SYRINGE SUBCUT SCH (14:00)
[2016-05-18 16:27] LABS: CREATINE KINASE MB 3.38 ng/mL (<4.55); TROPONIN I 0.043 ng/mL
[2016-05-18 16:47] VITALS: BP 124/100
--- NOTE | 2016-05-18 16:56 | PDOC H&P ---
History of Present Illness Admission Date/PCP: 05/18/16 06:40 JORGE ALBERTO GARZA MD History of Present Illness: FELISA MILES is a 40 year old female, very unfortunate female with chronic medical problems including malignant neoplasm of the lung, pulmonary fibrosis, scleroderma, end-stage renal disease on hemodialysis, she had episode of loss of consciousness today , she was brought to emergency room by family. In the emergency room she was evaluated she was found to have hyperkalemia, she was treated medically and she was admitted to ICU and hemodialyzed. Patient is back to baseline she has no more complaints at this time, the last time she was admitted was on 04/24/16 at that time she was transferred to [facility]. On that admission she had acute hypoxemic respiratory failure requiring mechanical ventilation. She was transferred at that time because there was no job lithographer environmental scientist to assist with vent management. 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 At this point there is no more acute medical condition to address and correct and she would be discharged home today Past Medical History Cardiac Medical History: Reports: DVT, Hyperlipidema, Hypertension Pulmonary Medical History: Reports: Asthma, Pneumonia Renal/ Medical History: Reports: End Stage Renal Disease Malignancy Medical History: Reports: Lung Cancer GI Medical History: Reports: Gastroesophageal Reflux Disease Musculoskeltal Medical History: Reports: Gout Infectious Medical History: Denies: Methicillin-Resistant Staph Aureus Past Surgical History Past Surgical History: Reports: Section, Cholecystectomy Social History Lives with: Family Smoking Status: Never Smoker Frequency of Alcohol Use: None Hx Recreational Drug Use: No Drugs: None Hx Prescription Drug Abuse: No - Advance Directive Resuscitation Status: Full Code Family History Family History: Reviewed & Not Pertinent Parental Family History Reviewed: Yes Children Family History Reviewed: Yes Sibling(s) Family History Reviewed.: Yes Medication/Allergy Home Medications: RX: Amlodipine Besylate [Norvasc 10 mg Tablet] 10 mg PO DAILY 05/18/16 RX: Amoxicillin 250 mg PO BID 05/18/16 RX: Doxazosin Mesylate [Cardura 4 mg Tablet] 4 mg PO QHS 05/18/16 RX: Lisinopril [Prinivil 40 mg Tablet] 40 mg PO DAILY 05/18/16 RX: Metoprolol Tartrate [Lopressor 100 mg Tablet] 100 mg PO Q12 05/18/16 RX: Prednisone 10 mg PO DAILY 05/18/16 RX: Sildenafil Citrate [Viagra] 25 mg PO Q8 05/18/16 Allergies/Adverse Reactions: Shellfish * [Shellfish] Allergy (Verified 02/22/16 10:12) Review of Systems Respiratory: ABSENT: as per HPI, cough, dyspnea, hemoptysis, sputum, other Gastrointestinal: ABSENT: abdominal pain, constipation, diarrhea, hematemesis, hematochezia, nausea, vomiting Genitourinary: ABSENT: dysuria, hematuria Musculoskeletal: ABSENT: joint swelling Integumentary: ABSENT: rash, wounds Psychiatric: ABSENT: anxiety, depression, homidical ideation, suicidal ideation Endocrine: ABSENT: cold intolerance, heat intolerance, menstrual abnormalities, polydipsia, polyuria Hematologic/Lymphatic: ABSENT: easy bleeding, easy bruising, lymphadenopathy Physical Exam Vital Signs: Temp Pulse Resp BP Pulse Ox 97.9 F 122 H 19 144/107 H 100 05/18/16 13:00 05/18/16 09:01 05/18/16 13:52 05/18/16 13:52 05/18/16 13:52 Intake & Output 05/17/16 05/18/16 05/19/16 06:59 06:59 06:59 Intake Total 200 Output Total 200 Balance 0 Weight 44.4 kg General appearance: PRESENT: thin Head exam: PRESENT: atraumatic, normocephalic, other - She is emaciated, severe muscle wastage chronically ill-looking Neck exam: PRESENT: full ROM Respiratory exam: PRESENT: clear to auscultation frankie Cardiovascular exam: PRESENT: RRR, +S1, +S2 Pulses: PRESENT: normal dorsalis pedis pul, +2 pedal pulses bilateral, other - There is dry gangrene of the middle toe of the left foot Vascular exam: PRESENT: normal capillary refill GI/Abdominal exam: PRESENT: normal bowel sounds, soft Rectal exam: PRESENT: deferred Neurological exam: PRESENT: alert, awake, oriented to person, oriented to place , oriented to time, oriented to situation, CN II-XII grossly intact. ABSENT: motor sensory deficit Skin exam: PRESENT: dry, intact, warm. ABSENT: cyanosis, rash Results Laboratory Results: 05/18/16 09:30 05/18/16 09:30 Sodium 141.4 Potassium 6.2 H* Chloride 102 Carbon Dioxide 20 L Anion Gap 19 BUN 103 H Creatinine 5.18 H Est GFR ( Amer) 11 L Est GFR (Non-Af Amer) 9 L Glucose 87 Calcium 8.0 L 05/18/16 05/18/16 05/18/16 09:30 09:30 15:43 Creatine Kinase 63 87 CK-MB (CK-2) 3.12 Troponin I 0.031 05/18/16 15:43 Creatine Kinase CK-MB (CK-2) 3.38 Troponin I 0.043 Impressions: Chest X-Ray 05/18/16 02:52 IMPRESSION: Bibasilar parenchymal opacities improved over previous. Heart enlarged without failure. Head CT 05/18/16 04:27 IMPRESSION: NORMAL BRAIN CT WITHOUT CONTRAST. Assessment & Plan - Diagnosis (1) Syncope Qualifiers: Syncope type: unspecified Qualified Code(s): R55 - Syncope and collapse Is this a current diagnosis for this admission?: YesPlan: She experienced syncope probably due to hyperkalemia she was emergently hemodialyzed and she is now stable (2) Hyperkalemia Is this a current diagnosis for this admission?: Yes (3) End-stage renal disease (ESRD) Is this a current diagnosis for this admission?: Yes (4) Lung cancer Qualifiers: Laterality: right Is this a current diagnosis for this admission?: Yes
--- NOTE | 2016-05-18 16:58 | PDOC DISCHARGE SUMMARY ---
General - Admit/Disc Date/PCP Admission Date/Primary Care Provider: 05/18/16 06:40 JORGE ALBERTO GARZA MD Discharge Date: 05/18/16 - Discharge Diagnosis (1) Syncope Is this a current diagnosis for this admission?: Yes (2) Hyperkalemia Is this a current diagnosis for this admission?: Yes (3) End-stage renal disease (ESRD) Is this a current diagnosis for this admission?: Yes (4) Lung cancer Is this a current diagnosis for this admission?: Yes - Additional Information Resuscitation Status: Full Code Discharge Activity: Activity As Tolerated Home Medications: Amlodipine Besylate [Norvasc 10 mg Tablet] 10 mg PO DAILY 05/18/16 Amoxicillin 250 mg PO BID 05/18/16 Doxazosin Mesylate [Cardura 4 mg Tablet] 4 mg PO QHS 05/18/16 Lisinopril [Prinivil 40 mg Tablet] 40 mg PO DAILY 05/18/16 Metoprolol Tartrate [Lopressor 100 mg Tablet] 100 mg PO Q12 05/18/16 Prednisone 10 mg PO DAILY 05/18/16 Sildenafil Citrate [Viagra] 25 mg PO Q8 05/18/16 History of Present Illness History of Present Illness: FELISA MILES is a 40 year old female, very unfortunate female with chronic medical problems including malignant neoplasm of the lung, pulmonary fibrosis, scleroderma, end-stage renal disease on hemodialysis, she had episode of loss of consciousness today , she was brought to emergency room by family. In the emergency room she was evaluated she was found to have hyperkalemia, she was treated medically and she was admitted to ICU and hemodialyzed. Patient is back to baseline she has no more complaints at this time, the last time she was admitted was on 04/24/16 at that time she was transferred to [facility]. On that admission she had acute hypoxemic respiratory failure requiring mechanical ventilation. She was transferred at that time because there was no relaster loss control consultant to assist with vent management. 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 At this point there is no more acute medical condition to address and correct and she would be discharged home today Hospital Course Hospital Course: Patient was admitted this morning when she presented with syncope associated with hyperkalemia, she has end-stage renal disease on hemodialysis, she was emergently hemodialyzed and she is now stable there are no more acute issues to address in the hospital at this time so she was discharged home Physical Exam Vital Signs: Temp Pulse Resp BP Pulse Ox 97.9 F 128 H 17 107/92 H 100 05/18/16 16:45 05/18/16 16:45 05/18/16 16:45 05/18/16 16:45 05/18/16 16:45 Intake & Output 05/17/16 05/18/16 05/19/16 06:59 06:59 06:59 Intake Total 200 Output Total 200 Balance 0 Weight 44.4 kg General appearance: PRESENT: no acute distress Eye exam: PRESENT: PERRLA Respiratory exam: PRESENT: clear to auscultation frankie Cardiovascular exam: PRESENT: +S1, +S2 Neurological exam: PRESENT: alert Results Laboratory Results: 05/18/16 09:30 05/18/16 09:30 Sodium 141.4 Potassium 6.2 H* Chloride 102 Carbon Dioxide 20 L Anion Gap 19 BUN 103 H Creatinine 5.18 H Est GFR ( Amer) 11 L Est GFR (Non-Af Amer) 9 L Glucose 87 Calcium 8.0 L 05/18/16 05/18/16 05/18/16 09:30 09:30 15:43 Creatine Kinase 63 87 CK-MB (CK-2) 3.12 Troponin I 0.031 05/18/16 15:43 Creatine Kinase CK-MB (CK-2) 3.38 Troponin I 0.043 Impressions: Chest X-Ray 05/18/16 02:52 IMPRESSION: Bibasilar parenchymal opacities improved over previous. Heart enlarged without failure. Head CT 05/18/16 04:27 IMPRESSION: NORMAL BRAIN CT WITHOUT CONTRAST.
== END 2016-05-18 17:09 | disposition home or self-care (01) | DRG 640 ==
LOC: ER 02:16 → UNDOADMIN 05:27 → EH 05:27 → ICU 08:50
PROVIDERS: ADMIT Internal Medicine; ATTEND Internal Medicine
PROC: 5A1D00Z (ICD-10-PCS; principal; 2016-05-18)
DX: E87.5 Hyperkalemia (principal); N18.6 End stage renal disease; E41 Nutritional marasmus; C34.90 Malignant neoplasm of unspecified part of unspecified bronchus or lung; I12.0 Hypertensive chronic kidney disease with stage 5 chronic kidney disease or end stage renal disease; I96 Gangrene, not elsewhere classified; Z68.1 Body mass index [BMI] 19.9 or less, adult; R55 Syncope and collapse; R53.1 Weakness; M34.9 Systemic sclerosis, unspecified; K21.9 Gastro-esophageal reflux disease without esophagitis; Z99.2 Dependence on renal dialysis; Z86.718 Personal history of other venous thrombosis and embolism; Z91.013 Allergy to seafood
CPT/HCPCS: 36415; 70450; 71020; 80048; 80053; 81001; 82550; 82553; 82962; 84443; 84484; 85025; 85610; 85730; 93005; 93010; 96374; 99285; J0610; J1644; J1815; J3490; J7030; Q4081

== ENCOUNTER 2016-05-29 17:21 | Inpatient (IN) | payer MEDICARE, OTHER ==
[2016-05-29] MEDS ORDERED: NORMAL SALINE 1000 ML 1,000 ML IV ONE (17:26)
--- NOTE | 2016-05-29 17:30 | ER Document Report ---
ED Medical Screen (RME) - General Stated Complaint: SHORTNESS OF BREATH Notes: Patient is a 40-year-old female presents emergency Department complaining shortness of breath with new onset this morning. Patient states that she has a history of lung cancer. On 2 L nasal cannula but was increased to 4 for shortness of breath. States she is prone to pneumonias. She is currently not undergoing any treatment for her lung cancer. I have greeted and performed a rapid initial assessment of this patient. A comprehensive ED assessment and evaluation of the patient, analysis of test results and completion of the medical decision making process will be conducted by additional ED providers. TRAVEL OUTSIDE OF THE [place] IN LAST 30 DAYS: No - Related Data Allergies/Adverse Reactions: Shellfish * [Shellfish] Allergy (Verified 05/29/16 17:26) Past Medical History - Past Medical History Cardiac Medical History: Reports: Hx DVT, Hx Hypercholesterolemia, Hx Hypertension Pulmonary Medical History: Reports: Hx Asthma, Hx Pneumonia Renal/ Medical History: Reports: Hx End Stage Renal Disease, Hx Hemodialysis, Hx Peritoneal Dialysis Malignancy Medical History: Reports: Hx Lung Cancer GI Medical History: Reports: Hx Gastroesophageal Reflux Disease Musculoskeltal Medical History: Reports Hx Gout Infectious Medical History: Denies: Hx MRSA Past Surgical History: Reports: Hx Abdominal Surgery - umbilical hernia repair, Hx Section, Hx Cholecystectomy, Hx Inguinal Hernia - Immunizations Hx Diphtheria, Pertussis, Tetanus Vaccination: Yes Physical Exam - Vital signs Vitals: Temp Pulse Resp BP Pulse Ox 99 F 137 H 34 H 152/100 H 100 05/29/16 17:24 05/29/16 17:24 05/29/16 17:24 05/29/16 17:24 05/29/16 17:24 Course - Vital Signs Vital signs: Temp Pulse Resp BP Pulse Ox 99 F 137 H 34 H 152/100 H 100 05/29/16 17:24 05/29/16 17:24 05/29/16 17:24 05/29/16 17:24 05/29/16 17:24
--- NOTE | 2016-05-29 18:01 | ER Document Report ---
ED Respiratory Problem - General Chief Complaint: Shortness Of Breath Stated Complaint: SHORTNESS OF BREATH Notes: The patient is a 40-year-old female, past medical history lung cancer, ESRD on peritoneal dialysis ([facility], received full dose today), presents with 1 day of increasing shortness of breath, cough and subjective fevers. She is tachypneic on arrival to the emergency room and only able to speak in one-word sentences. She denies leg swelling, abdominal pain, cough, hemoptysis, rash, nausea, vomiting, back pain or chest pain. TRAVEL OUTSIDE OF THE [place] IN LAST 30 DAYS: No - Related Data Allergies/Adverse Reactions: Shellfish * [Shellfish] Allergy (Verified 05/29/16 17:26) Past Medical History - General Information source: Patient, Relative - - Social History Smoking Status: Unknown if Ever Smoked Chew tobacco use (# tins/day): No Frequency of alcohol use: None Drug Abuse: None Family History: Reviewed & Not Pertinent Patient has suicidal ideation: No Patient has homicidal ideation: No - Past Medical History Cardiac Medical History: Reports: Hx DVT, Hx Hypercholesterolemia, Hx Hypertension Pulmonary Medical History: Reports: Hx Asthma, Hx Pneumonia Renal/ Medical History: Reports: Hx End Stage Renal Disease, Hx Hemodialysis, Hx Peritoneal Dialysis Malignancy Medical History: Reports: Hx Lung Cancer GI Medical History: Reports: Hx Gastroesophageal Reflux Disease Musculoskeltal Medical History: Reports Hx Gout Infectious Medical History: Denies: Hx MRSA Past Surgical History: Reports: Hx Abdominal Surgery - umbilical hernia repair, Hx Section, Hx Cholecystectomy, Hx Inguinal Hernia - Immunizations Hx Diphtheria, Pertussis, Tetanus Vaccination: Yes Hx Pneumococcal Vaccination: 06/12/12 Review of Systems - Review of Systems Notes: REVIEW OF SYSTEMS: CONSTITUTIONAL: +fevers, +chills EENT: -eye pain, -difficulty swallowing, -nasal congestion CARDIOVASCULAR:-chest pain, -syncope. RESPIRATORY: +cough, +SOB GASTROINTESTINAL: -abdominal pain, -nausea, -vomiting, -diarrhea GENITOURINARY: -dysuria, -hematuria MUSCULOSKELETAL: -back pain, -neck pain SKIN: -rash or skin lesions. HEMATOLOGIC: -easy bruising or bleeding. LYMPHATIC: -swollen, enlarged glands. NEUROLOGICAL: -altered mental status or loss of consciousness, -headache, - neurologic symptoms PSYCHIATRIC: -anxiety, -depression. ALL OTHER SYSTEMS REVIEWED AND NEGATIVE. Physical Exam - Vital signs Vitals: Temp Pulse Resp BP Pulse Ox 99 F 137 H 34 H 152/100 H 100 05/29/16 17:24 05/29/16 17:24 05/29/16 17:24 05/29/16 17:24 05/29/16 17:24 - Notes Notes: PHYSICAL EXAMINATION: GENERAL: Moderate respiratory distress, cachectic, ill-appearing HEAD: Atraumatic, normocephalic. EYES: Pupils equal round and reactive to light, extraocular movements intact, sclera anicteric, conjunctiva are normal. ENT: nares patent, oropharynx clear without exudates. Moist mucous membranes. NECK: Normal range of motion, supple without lymphadenopathy LUNGS: Tachypneic, bilateral rales and wheezing. HEART: Tachycardic without murmurs ABDOMEN: Soft, nontender, normoactive bowel sounds. No guarding, no rebound. EXTREMITIES: Normal range of motion, no pitting or edema. No cyanosis. NEUROLOGICAL: Cranial nerves grossly intact. Normal speech, normal gait. Normal sensory, motor, and reflex exams. PSYCH: Normal mood, normal affect. SKIN: Warm, Dry, normal turgor, no rashes or lesions noted. Course - Re-evaluation Re-evalutation: Patient seen immediately on arrival. Tachypnea and hypoxia improved with 4 L nasal cannula. Sent immediately to CTA for high concern for PE with history of lung cancer, tachypnea, tachycardia and hypoxia. CTA does not show any evidence of PE, but does show vascular congestion and a possible lung abscess. She also has an unchanged pericardial effusion. Bedside ultrasound does not show any evidence of tamponade. Her oncologist is at [place] and she is not receiving any active treatment for her cancer at this time. While in the emergency room, the patient became more tachypneic and had slightly worsening mental status. BiPAP started. 05/29/16 21:18 Patient's mental status was decreasing and she was still very tachypneic. Decision was made to intubate patient for airway protection because she was tiring out from her respiratory drive. Spoke to Dr. Separs and he has accepted patient as inpatient to ICU. Pt will need Peritoneal Dialysis in 1-2 days, since she received IV contrast today. Repeat lactate sent after 30 mL/kg to see if it's clearing appropriately. Patient began to desat and her pressure went down to 45/20. Propofol immediately stopped and fluids given. Vent settings changed to increased PEEP and respiratory rate with improvement of her oxygenation. After 10 minutes of no improvement of blood pressure, levophed started initially through a large peripheral IV. Right femoral central line placed and levophed switched to central line. - Vital Signs Vital signs: Temp Pulse Resp BP Pulse Ox 99 F 137 H 42 H 155/137 H 97 05/29/16 17:24 05/29/16 17:24 05/29/16 20:00 05/29/16 20:00 05/29/16 22:00 - Laboratory Result Diagrams: 05/29/16 18:45 05/29/16 18:00 Laboratory results interpreted by me: 05/29/16 05/29/16 05/29/16 18:00 18:00 18:00 WBC Hgb MCV MCHC RDW Absolute Neutrophils PT 17.3 H VBG pH Anion Gap 22 H BUN 32 H Creatinine 1.98 H Est GFR ( Amer) 33 L Est GFR (Non-Af Amer) 28 L Glucose 126 H Lactic Acid 6.1 H AST 55 H ALT 75 H Alkaline Phosphatase 299 H TSH 05/29/16 05/29/16 05/29/16 18:00 18:00 18:45 WBC 15.9 H Hgb 11.2 L MCV 99 H D MCHC 28.8 L RDW 21.8 H Absolute Neutrophils 12.0 H PT VBG pH 7.22 L Anion Gap BUN Creatinine Est GFR ( Amer) Est GFR (Non-Af Amer) Glucose Lactic Acid AST ALT Alkaline Phosphatase TSH 4.76 H - Diagnostic Test Radiology reviewed: Image reviewed, Reports reviewed Radiology results interpreted by me: CTA Chest: No evidence for pulmonary embolic disease. Extensive chronic appearing changes as noted above. Small right pleural effusion is again identified which appears slightly larger than on the previous study. The previously described rounded masslike density in the right lower lobe is again identified. There is a central somewhat low density area and the possibility of a necrotic neoplasm or developing lung abscess cannot be excluded. Large pericardial effusion is again identified. Other findings as noted above Procedures - Central Line Right Femoral Time completed: 23:14 Consent obtained: Yes - From Central line pre-insertion: Sterile PPE donned, Betadine prep applied, Chloraprep applied, Sterile drapes applied Central line lumen type: Triple Anesthetic type: 1% Lidocaine mL's of anesthesia: 3 Ultrasound guided: Yes CM at insertion site: 24 Line secured with sutures: Yes Central line post-insertion: Blood return from lumens, Biopatch applied, Sutured , Sterile dressing applied Number of attempts: 1 Complications: No - Intubation Orotracheal Time of Intubation: 21:11 Airway evaluation: Normal anatomy Mallampati Classification: Class 2 Intubation method: Orotracheal Blade type: Gaye Blade size: 3 Equipment used: Glidescope ETT size: 7.0 ETT secured at: Teeth ETT secured at (cm): 22 Breath Sounds after Intubation: Equal End tidal CO2 confirmed: Yes Ventilator settings: AC Tidal volume: 350 FiO2: 80 Respirations: 22 PEEP: 5 Post Intubation Xray: Yes Intubation Complications: No complications Critical Care Note - Critical Care Note Total time excluding time spent on procedures (mins): 75 Discharge - Discharge Clinical Impression: Septic shock Respiratory failure Qualifiers: Chronicity: acute Respiratory failure complication: hypoxia Qualified Code(s): J96.01 - Acute respiratory failure with hypoxia Condition: Critical Disposition: ADMITTED INPATIENT [facility] ICU
[2016-05-29 18:23] LABS: VENOUS BLOOD BASE EXCESS -3.8 mmol/L; VENOUS BLOOD HCO3 24.9 mmol/L (20-32); VENOUS BLOOD PCO2 62.8 mmHg (35-63); VENOUS BLOOD PH 7.22 (7.30-7.42)
[2016-05-29 18:39] LABS: PROTHROMBIN TIME 17.3 SEC (11.4-15.4)
[2016-05-29 18:40] LABS: PARTIAL THROMBOPLASTIN TIME 31.3 SEC (23.5-35.8)
[2016-05-29 18:44] LABS: ALANINE AMINOTRANSFERASE 75 U/L (9-52); ALBUMIN 3.9 g/dL (3.5-5.0); ALKALINE PHOSPHATASE 299 U/L (38-126); ASPARTATE AMINO TRANSFERASE 55 U/L (14-36); BLOOD UREA NITROGEN 32 mg/dL (7-20); CALCIUM 9.1 mg/dL (8.4-10.2); CARBON DIOXIDE 22 mmol/L (22-30); CHLORIDE 100 mmol/L (98-107); CREATININE RESULT 1.98 mg/dL (0.52-1.25); GLUCOSE 126 mg/dL (75-110); MAGNESIUM 2.1 mg/dL (1.6-2.3); POTASSIUM 4.4 mmol/L (3.6-5.0); TOTAL PROTEIN 7.2 g/dL (6.3-8.2)
[2016-05-29 18:53] LABS: ANION GAP 22 (5-19)
[2016-05-29] MEDS ORDERED: NORMAL SALINE 1000 ML 500 ML IV ONE (18:58)
[2016-05-29 19:12] LABS: ABSOLUTE BASOPHILS # (AUTO) 0.2 10^3/uL (0.0-0.2); ABSOLUTE EOSINOPHILS # (AUTO) 0.2 10^3/uL (0.0-0.6); ABSOLUTE MONOCYTES (AUTO) 0.6 10^3/uL (0.1-1.4); HEMOGLOBIN 11.2 g/dL (12.0-15.5); MEAN CORPUSCULAR HEMOGLOBIN 28.6 pg (27.0-33.4); MEAN CORPUSCULAR HGB CONC 28.8 g/dL (32.0-36.0); MONOCYTES % (AUTO) 3.7 % (3-13); RED BLOOD COUNT 3.92 10^6/uL (3.72-5.28); RED CELL DISTRIBUTION WIDTH 21.8 % (11.5-14.0); SEGMENTED NEUTROPHILS % (AUTO) 75.3 % (42-78); WHITE BLOOD COUNT 15.9 10^3/uL (4.0-10.5)
[2016-05-29] MEDS ORDERED: CLINDAMYCIN 600 MG/D5W RTU 50 ML IV ONE (19:26)
[2016-05-29 19:35] LABS: HGB HCT DIFFERENCE -5.4; MEAN CORPUSCULAR VOLUME 99 fl (80-97)
--- NOTE | 2016-05-29 20:34 | EKG REPORT ---
SEVERITY:- ABNORMAL ECG - SINUS TACHYCARDIA PROBABLE LEFT ATRIAL ABNORMALITY LEFT ANTERIOR FASCICULAR BLOCK LVH WITH SECONDARY REPOLARIZATION ABNORMALITY ANTERIOR ST ELEVATION, PROBABLY DUE TO LVH : Confirmed by: Sneha Joyce MD 29-May-2016 20:33:32
[2016-05-29] MEDS ORDERED: PROPOFOL 100 ML IV ONE (20:55)
[2016-05-29] MEDS ORDERED: ETOMIDATE INJ/PF 20 MG/10 ML SDV IV ONE ×2 (20:55→21:26)
[2016-05-29] MEDS ORDERED: ROCURONIUM BROMIDE INJ 50 MG/5 ML VIAL IV ONE (21:26)
[2016-05-29] MEDS ORDERED: VANCOMYCIN HCL INJ 500 MG VIAL IV PRN (21:57)
[2016-05-29] MEDS ORDERED: VANCOMYCIN HCL 500 MG in DEXTROSE 5%-WATER 100 ML IV ONE (22:00)
[2016-05-29] MEDS ORDERED: NOREPINEPHRINE BITARTRATE INJ/PF 4 MG/4 ML SDV IV ONE (22:00)
[2016-05-29] MEDS ORDERED: IMIPENEM/CILASTATIN SODIUM INJ 500 MG VIAL IV PRN (22:01)
[2016-05-29 22:39] LABS: ARTERIAL BLOOD BASE EXCESS -11.3 mmol/L; ARTERIAL BLOOD O2 SATURATION 99.8 % (94-98)
[2016-05-29] MEDS ORDERED: LEVOFLOXACIN 500 MG/D5W RTU 500 MG/100 ML RTUPB IV ONE (23:00)
[2016-05-29] MEDS: PROPOFOL 100 ML IV PRN (23:31)
[2016-05-29] MEDS: DEXTROSE 5%-WATER 250 ML with NOREPINEPHRINE BITARTRATE 4 MG IV PRN ×2 (23:33)
[2016-05-30] MEDS ORDERED: IMIPENEM/CILASTATIN SODIUM 500 MG in NORMAL SALINE 100 ML IV ONE ×2
--- NOTE | 2016-05-30 00:03 | PDOC H&P ---
History of Present Illness Admission Date/PCP: 05/29/16 21:27 JORGE ALBERTO GARZA MD History of Present Illness: FELISA MILES is a 40 year old female, patient is well-known to me she has progressive lung cancer, end-stage renal disease on hemodialysis, systemic sclerosis complicated with pulmonary fibrosis and lung cancer, she had hemodialysis earlier today, patient spouse said she was short of breath this morning before she was hemodialyzed, after dialysis she improved some and then it got worse and he brought her to the emergency room. In the emergency room she was evaluated she was found to be hypoxemic and then she was intubated. I saw her in the emergency room I could not obtain any history from the patient, the lab data were reviewed on the CTA was reviewed, when she arrived emergency room CTA chest was done and it showed extensive chronic changes with extensive subpleural honeycombing in the lung bases a small right pleural effusion which appears larger than previous study. Also found was a rounded masslike density in the right lower lobe there is a central low density on the possibility of a necrotic neoplasm or developing lung abscess cannot be excluded. There is bilateral groundglass opacities which could represent infiltrate or pulmonary edema. Patient overall prognosis is poor the last time she was intubated she was transferred to [facility] where she was treated and ultimately she was extubated. The lung cancer is not being treated. She had episode of low blood pressure when she was intubated in the emergency room and she was treated with intravenous vasopressor, blood pressure is now normalized on she is being weaned off the vasopressor. Past Medical History Cardiac Medical History: Reports: DVT, Hyperlipidema, Hypertension Pulmonary Medical History: Reports: Asthma, Pneumonia Renal/ Medical History: Reports: End Stage Renal Disease Malignancy Medical History: Reports: Lung Cancer GI Medical History: Reports: Gastroesophageal Reflux Disease Musculoskeltal Medical History: Reports: Gout, Other - Systemic sclerosis complicated with pulmonary fibrosis, end-stage renal disease on hemodialysis Past Surgical History Past Surgical History: Reports: Section, Cholecystectomy Social History Smoking Status: Never Smoker Frequency of Alcohol Use: None Hx Recreational Drug Use: No Drugs: None Hx Prescription Drug Abuse: No Family History Family History: Reviewed & Not Pertinent Parental Family History Reviewed: Yes Children Family History Reviewed: Yes Sibling(s) Family History Reviewed.: Yes Medication/Allergy Home Medications: Amlodipine Besylate [Norvasc 10 mg Tablet] 10 mg PO DAILY 05/18/16 Amoxicillin 250 mg PO BID 05/18/16 Doxazosin Mesylate [Cardura 4 mg Tablet] 4 mg PO QHS 05/18/16 Lisinopril [Prinivil 40 mg Tablet] 40 mg PO DAILY 05/18/16 Metoprolol Tartrate [Lopressor 100 mg Tablet] 100 mg PO Q12 05/18/16 Prednisone 10 mg PO DAILY 05/18/16 Sildenafil Citrate [Viagra] 25 mg PO Q8 05/18/16 Allergies/Adverse Reactions: Shellfish * [Shellfish] Allergy (Verified 05/29/16 17:26) Review of Systems ROS unobtainable: Due to endotracheal tube Physical Exam Vital Signs: Temp Pulse Resp BP Pulse Ox 99 F 137 H 42 H 155/137 H 97 05/29/16 17:24 05/29/16 17:24 05/29/16 20:00 05/29/16 20:00 05/29/16 22:00 General appearance: PRESENT: thin, other - Intubated, cachexia Respiratory exam: PRESENT: crackles Cardiovascular exam: PRESENT: +S1, +S2 GI/Abdominal exam: PRESENT: soft Neurological exam: PRESENT: other - Sedated on mechanical ventilation Results Laboratory Results: 05/29/16 22:29 Carbonic Acid 1.00 L HCO3/H2CO3 Ratio 14:1 ABG pH 7.26 L ABG pCO2 33.3 L ABG pO2 451.6 H ABG HCO3 14.6 L ABG O2 Saturation 99.8 H ABG Base Excess -11.3 FiO2 100% Impressions: Chest/Abdomen CTA 05/29/16 18:00 IMPRESSION: No evidence for pulmonary embolic disease. Extensive chronic appearing changes as noted above. Small right pleural effusion is again identified which appears slightly larger than on the previous study. The previously described rounded masslike density in the right lower lobe is again identified. There is a central somewhat low density area and the possibility of a necrotic neoplasm or developing lung abscess cannot be excluded. Large pericardial effusion is again identified. Other findings as noted above Chest X-Ray 05/29/16 21:11 IMPRESSION: Endotracheal tube and NG tube as noted above. The previously described bibasilar densities appear unchanged. Other findings as noted above. Assessment & Plan - Diagnosis (1) Acute hypoxemic respiratory failure Is this a current diagnosis for this admission?: YesPlan: Patient on mechanical ventilation the initial vent setting orders in the chart, consultation will be requested from pulmonary for vent management (2) Lung cancer Qualifiers: Laterality: unspecified laterality Lung location: unspecified part of lung Qualified Code(s): C34.90 - Malignant neoplasm of unspecified part of unspecified bronchus or lung (3) Lung abscess Qualifiers: Pulmonary abscess pneumonia presence: with pneumonia Laterality: right Lung location: unspecified part of lung Qualified Code(s): J85.1 - Abscess of lung with pneumonia Is this a current diagnosis for this admission?: YesPlan: She will be treated empirically with antibiotic to cover anaerobes, gram- positive, gram-negative organisms and MRSA (4) End stage renal disease Is this a current diagnosis for this admission?: YesPlan: She was hemodialyzed today
[2016-05-30 00:33] LABS: CREATINE KINASE MB 1.81 ng/mL (<4.55)
[2016-05-30 00:39] LABS: TROPONIN I 0.069 ng/mL
[2016-05-30] MEDS: PROPOFOL 100 ML IV PRN ×4 (01:53→17:49)
[2016-05-30] MEDS: HEPARIN SOD (PORCINE) 5,000 UNIT/ML 1 ML SYRINGE SUBCUT SCH ×3 (02:06→21:15)
[2016-05-30 06:29] LABS: ALANINE AMINOTRANSFERASE 199 U/L (9-52); ALBUMIN 2.9 g/dL (3.5-5.0); ALKALINE PHOSPHATASE 483 U/L (38-126); ANION GAP 16 (5-19); ASPARTATE AMINO TRANSFERASE 157 U/L (14-36); BILIRUBIN,TOTAL 1.1 mg/dL (0.2-1.3); BLOOD UREA NITROGEN 43 mg/dL (7-20); CALCIUM 8.1 mg/dL (8.4-10.2); CARBON DIOXIDE 21 mmol/L (22-30); CHLORIDE 105 mmol/L (98-107); CREATININE RESULT 2.45 mg/dL (0.52-1.25); GLUCOSE 67 mg/dL (75-110); POTASSIUM 4.2 mmol/L (3.6-5.0); SODIUM 141.7 mmol/L (137-145); TOTAL PROTEIN 5.6 g/dL (6.3-8.2)
[2016-05-30 06:42] LABS: CREATINE KINASE MB 1.71 ng/mL (<4.55); TROPONIN I 0.094 ng/mL
[2016-05-30 06:42] LABS: ABSOLUTE BASOPHILS # (AUTO) 0.1 10^3/uL (0.0-0.2); ABSOLUTE LYMPHOCYTES (AUTO) 2.1 10^3/uL (0.5-4.7); ABSOLUTE MONOCYTES (AUTO) 0.8 10^3/uL (0.1-1.4); ABSOLUTE NEUT (AUTO) 16.6 10^3/uL (1.7-8.2); BASOPHILS % (AUTO) 0.5 % (0-2); EOSINOPHILS % (AUTO) 0.1 % (0-6); HEMATOCRIT 38.9 % (36.0-47.0); HEMOGLOBIN 11.8 g/dL (12.0-15.5); HGB HCT DIFFERENCE -3.5; LYMPHOCYTES % (AUTO) 10.9 % (13-45); MEAN CORPUSCULAR HEMOGLOBIN 28.5 pg (27.0-33.4); MEAN CORPUSCULAR HGB CONC 30.3 g/dL (32.0-36.0); RED BLOOD COUNT 4.14 10^6/uL (3.72-5.28); RED CELL DISTRIBUTION WIDTH 21.1 % (11.5-14.0); SEGMENTED NEUTROPHILS % (AUTO) 84.5 % (42-78); WHITE BLOOD COUNT 19.7 10^3/uL (4.0-10.5)
[2016-05-30 06:51] LABS: MEAN CORPUSCULAR VOLUME 94 fl (80-97)
[2016-05-30] MEDS ORDERED: DEXTROSE 50%-WATER 25 GM/50 ML DISP.SYRIN IV ONE ×4 (06:51→20:56)
[2016-05-30] MEDS ORDERED: EPINEPHRINE INJ 1 MG/10 ML DISP.SYRIN ONE (09:01)
[2016-05-30] MEDS ORDERED: ROCURONIUM BROMIDE INJ 50 MG/5 ML VIAL IV ONE (10:00)
[2016-05-30] MEDS ORDERED: LEVOFLOXACIN 500 MG/D5W RTU 500 MG/100 ML RTUPB IV SCH (10:00)
[2016-05-30] MEDS ORDERED: IMIPENEM/CILASTATIN SODIUM 500 MG in NORMAL SALINE 100 ML IV SCH (12:00)
[2016-05-30] MEDS ORDERED: MORPHINE SULFATE 10 MG/ML INJ ONE (12:19)
[2016-05-30] MEDS ORDERED: MORPHINE SULFATE 10 MG/ML INJ IV ONE (13:00)
--- NOTE | 2016-05-30 13:07 | Operative Report ---
Operative Report DATE OF SURGERY: 05/30/16 Operative Report: L inguinal area prepped and draped local 6 cc 1% lidocaine.Then under u sound guidance 20 gauge arrow femoral arterial cath inserted into L femoral artery pulsatile return and good arterial wave form line was sutured into place 3.0 suture PREOPERATIVE DIAGNOSIS: poor arterial access POSTOPERATIVE DIAGNOSIS: same OPERATION: arterial line SURGEON: QUEEINE FIELDS ANESTHESIA: GA TISSUE REMOVED OR ALTERED: na COMPLICATIONS: none ESTIMATED BLOOD LOSS: 2 cc
[2016-05-30 13:28] LABS: ARTERIAL BLOOD BASE EXCESS -5.9 mmol/L; ARTERIAL BLOOD O2 SATURATION 95.5 % (94-98)
[2016-05-30] MEDS ORDERED: DEXTROSE 5%-1/2 NORMAL SALINE 1,000 ML IV PRN (15:05)
[2016-05-30] MEDS: MORPHINE SULFATE 10 MG/ML INJ IV PRN (15:08)
[2016-05-30] MEDS ORDERED: NOREPINEPHRINE BITARTRATE INJ/PF 4 MG/4 ML SDV IV ONE (16:13)
[2016-05-30] MEDS: DEXTROSE 5%-WATER 250 ML with NOREPINEPHRINE BITARTRATE 4 MG IV PRN ×2 (16:15)
[2016-05-30] MEDS ORDERED: GLUCAGON,HUMAN RECOMB 1 MG INJ IM PRN (16:19)
[2016-05-30] MEDS ORDERED: DEXTROSE 40% GEL 15 GM TUBE X 2 PO PRN (16:19)
[2016-05-30] MEDS ORDERED: INSULIN LISPRO 100 UNIT/ML 3 ML VIAL SUBCUT PRN (16:19)
[2016-05-30] MEDS ORDERED: DEXTROSE 40% GEL 15 GM TUBE PO PRN (16:19)
--- NOTE | 2016-05-30 16:51 | PDOC CONSULTATION ---
Consultation Consult Date: 05/30/16 Attending physician:: JORGE ALBERTO SPEARS Consult reason:: Cardiac arrest History of Present Illness Admission Date/PCP: 05/29/16 21:38 JORGE ALBERTO SPEARS MD Patient complains of: Patient is intubated and was noted to have pulseless electrical activity. History of Present Illness: FELISA MILES is a 40 year old female, patient is well-known to me she has progressive lung cancer, end-stage renal disease on hemodialysis, systemic sclerosis complicated with pulmonary fibrosis and lung cancer, she had hemodialysis earlier today, patient spouse said she was short of breath this morning before she was hemodialyzed, after dialysis she improved some and then it got worse and he brought her to the emergency room. In the emergency room she was evaluated she was found to be hypoxemic and then she was intubated. Lab data were reviewed on the CTA was reviewed, when she arrived emergency room CTA chest was done and it showed extensive chronic changes with extensive subpleural honeycombing in the lung bases a small right pleural effusion which appears larger than previous study. Also found was a rounded masslike density in the right lower lobe there is a central low density on the possibility of a necrotic neoplasm or developing lung abscess cannot be excluded. There is bilateral groundglass opacities which could represent infiltrate or pulmonary edema. Patient overall prognosis is poor. The last time she was intubated she was transferred to [facility] where she was treated and ultimately she was extubated. The lung cancer is not being treated. She had episode of low blood pressure when she was intubated in the emergency room and she was treated with intravenous vasopressor. This history was reviewed and confirmed. This afternoon, around 1:30 PM, patient was noted to go into pulseless electrical activity. This was confirmed as the patient had arterial line. Patient had brief cardiac compression and given epinephrine 1 dose of 1 mg. Patient subsequently came around. Because of pulseless electrical activity , we felt that we needed to rule out cardiac tamponade. A 2-D echocardiogram was performed on stat basis. It did not show any evidence of tamponade. Patient did have pericardial effusion which is felt to be mild to moderate in severity except over the cranial aspect right atrium where it was more increased. Patient was also noted to have low blood sugar, patient was given 2 ampules of D50 IV and subsequently started on D5 half-normal saline drip. I had multiple talks with patient's family including patient's daughter, . Discussed that this situation is very grave and patient is unlikely to do well. Also informed that there is not much cardiac support in this institution and therefore it's best for the patient to be transferred to tertiary care. They were also encouraged to make a code decision as whatever we do, prognosis is going to be poor however they insist on continuing patient on full code. Later on I talked with the nurses, this was actually 2 hours after her cardiac resuscitation, has declined transfer and declined any change in CODE STATUS. Patient currently on high-dose Levophed. Will consider adding other vasopressors if needed. Patient was noted to be severely tachycardic on other vasopressors. Past Medical History Cardiac Medical History: Reports: DVT, Hyperlipidema, Hypertension Pulmonary Medical History: Reports: Asthma, Pneumonia Renal/ Medical History: Reports: End Stage Renal Disease Malignancy Medical History: Reports: Lung Cancer GI Medical History: Reports: Gastroesophageal Reflux Disease Musculoskeltal Medical History: Reports: Gout, Other - Systemic sclerosis complicated with pulmonary fibrosis, end-stage renal disease on hemodialysis Infectious Medical History: Denies: Methicillin-Resistant Staph Aureus Past Surgical History Past Surgical History: Reports: Section, Cholecystectomy, Other - Dialysis access related surgeries were noted Social History Information Source: Relative Smoking Status: Never Smoker Frequency of Alcohol Use: None Hx Recreational Drug Use: No Drugs: None Hx Prescription Drug Abuse: No - Advance Directive Resuscitation Status: Full Code Family History Family History: Reviewed & Not Pertinent Parental Family History Reviewed: Yes Children Family History Reviewed: Yes Sibling(s) Family History Reviewed.: Yes Medication/Allergy Home Medications: Amlodipine Besylate [Norvasc 10 mg Tablet] 10 mg PO DAILY 05/18/16 Amoxicillin 250 mg PO BID 05/18/16 Doxazosin Mesylate [Cardura 4 mg Tablet] 4 mg PO QHS 05/18/16 Lisinopril [Prinivil 40 mg Tablet] 40 mg PO DAILY 05/18/16 Metoprolol Tartrate [Lopressor 100 mg Tablet] 100 mg PO Q12 05/18/16 Prednisone 10 mg PO DAILY 05/18/16 Sildenafil Citrate [Viagra] 25 mg PO Q8 05/18/16 Allergies/Adverse Reactions: Shellfish * [Shellfish] Allergy (Verified 05/29/16 17:26) Review of Systems ROS unobtainable: Due to endotracheal tube Physical Exam Vital Signs: Temp Pulse Resp BP Pulse Ox 98.8 F 100 26 H 106/84 98 05/30/16 11:53 05/30/16 04:00 05/30/16 10:30 05/30/16 09:07 05/30/16 15:35 Intake & Output 05/29/16 05/30/16 05/31/16 06:59 06:59 06:59 Intake Total 335 Output Total 0 0 Balance 335 0 Weight 49.3 kg Exam: GENERAL: well-nourished and in no acute distress. Patient is intubated and sedated. Orientation cannot be checked HEAD: Atraumatic, normocephalic. EYES: Pupils equal round and reactive to light, extraocular movements could not be checked, sclera anicteric, conjunctiva are normal. ENT: TMs normal, nares patent, oropharynx clear without exudates. Moist mucous membranes. No oral ulcerations or bleeding gums noted NECK: supple without lymphadenopathy or JVD. Trachea is central. No cervical or axillary lymphadenopathy noted. Carotids are 2+ LUNGS: Breath sounds mostly clear to auscultation patient is noted to have bibasal crackles at the both bases up to midway up. CHEST: Palpation of the chest wall shows no significant chest wall tenderness or abnormalities. HEART: [place] DRAFTER, No PSH, 2/6 JACQUES aortic area, 1/6 brewer systolic murmur mitral area , positive S3-S4 gallop noted. ABDOMEN: Soft, no significant tenderness appreciated, normoactive bowel sounds. No guarding, no rebound. No rigidity noted . No masses appreciated. EXTREMITIES: Pedal pulses are 1-2+, no calf tenderness noted, 1+ pedal edema noted. Mild clubbing and peripheral cyanosis noted. NEUROLOGICAL: The patient cannot participate in the neurological exam but no facial asymmetry noted. Extremities slightly hypotonic PSYCH: This cannot be evaluated. Patient cannot participate. SKIN: No significant ecchymosis, rash, or signs of pruritus noted. MUSCULOSKELETAL EXAM: No significant joint swelling noted. Patient cannot participate in musculoskeletal exam Results Laboratory Results: 05/30/16 06:37 05/30/16 05:55 05/29/16 05/29/16 05/29/16 22:29 23:45 23:45 WBC RBC Hgb Hct MCV MCH MCHC RDW Plt Count Seg Neutrophils % Lymphocytes % Monocytes % Eosinophils % Basophils % Absolute Neutrophils Absolute Lymphocytes Absolute Monocytes Absolute Eosinophils Absolute Basophils Carbonic Acid 1.00 L HCO3/H2CO3 Ratio 14:1 ABG pH 7.26 L ABG pCO2 33.3 L ABG pO2 451.6 H ABG HCO3 14.6 L ABG O2 Saturation 99.8 H ABG Base Excess -11.3 FiO2 100% Sodium Potassium Chloride Carbon Dioxide Anion Gap BUN Creatinine Est GFR ( Amer) Est GFR (Non-Af Amer) Glucose Lactic Acid Calcium Total Bilirubin AST ALT Alkaline Phosphatase Ammonia < 8.7 L Total Protein Albumin Triglycerides Amylase 94 Free T4 05/29/16 05/29/16 05/30/16 23:45 23:45 05:55 WBC RBC Hgb Hct MCV MCH MCHC RDW Plt Count Seg Neutrophils % Lymphocytes % Monocytes % Eosinophils % Basophils % Absolute Neutrophils Absolute Lymphocytes Absolute Monocytes Absolute Eosinophils Absolute Basophils Carbonic Acid HCO3/H2CO3 Ratio ABG pH ABG pCO2 ABG pO2 ABG HCO3 ABG O2 Saturation ABG Base Excess FiO2 Sodium 141.7 Potassium 4.2 Chloride 105 Carbon Dioxide 21 L Anion Gap 16 BUN 43 H Creatinine 2.45 H Est GFR ( Amer) 26 L Est GFR (Non-Af Amer) 22 L Glucose 67 L Lactic Acid 3.0 H Calcium 8.1 L Total Bilirubin 1.1 AST 157 H ALT 199 H Alkaline Phosphatase 483 H Ammonia Total Protein 5.6 L Albumin 2.9 L Triglycerides Amylase Free T4 3.13 H 05/30/16 05/30/16 05/30/16 05:55 05:55 06:37 WBC Cancelled 19.7 H RBC Cancelled 4.14 Hgb Cancelled 11.8 L Hct Cancelled 38.9 MCV Cancelled 94 D MCH Cancelled 28.5 MCHC Cancelled 30.3 L RDW Cancelled 21.1 H Plt Count Cancelled 268 Seg Neutrophils % Cancelled 84.5 H Lymphocytes % Cancelled 10.9 L Monocytes % Cancelled 4.0 Eosinophils % Cancelled 0.1 Basophils % Cancelled 0.5 Absolute Neutrophils Cancelled 16.6 H Absolute Lymphocytes Cancelled 2.1 Absolute Monocytes Cancelled 0.8 Absolute Eosinophils Cancelled 0.0 Absolute Basophils Cancelled 0.1 Carbonic Acid HCO3/H2CO3 Ratio ABG pH ABG pCO2 ABG pO2 ABG HCO3 ABG O2 Saturation ABG Base Excess FiO2 Sodium Potassium Chloride Carbon Dioxide Anion Gap BUN Creatinine Est GFR ( Amer) Est GFR (Non-Af Amer) Glucose Lactic Acid Calcium Total Bilirubin AST ALT Alkaline Phosphatase Ammonia Total Protein Albumin Triglycerides 192 H Amylase Free T4 05/30/16 13:10 WBC RBC Hgb Hct MCV MCH MCHC RDW Plt Count Seg Neutrophils % Lymphocytes % Monocytes % Eosinophils % Basophils % Absolute Neutrophils Absolute Lymphocytes Absolute Monocytes Absolute Eosinophils Absolute Basophils Carbonic Acid 1.01 L HCO3/H2CO3 Ratio 18:1 ABG pH 7.36 ABG pCO2 33.6 L ABG pO2 79.4 L ABG HCO3 18.6 L ABG O2 Saturation 95.5 ABG Base Excess -5.9 FiO2 45% Sodium Potassium Chloride Carbon Dioxide Anion Gap BUN Creatinine Est GFR ( Amer) Est GFR (Non-Af Amer) Glucose Lactic Acid Calcium Total Bilirubin AST ALT Alkaline Phosphatase Ammonia Total Protein Albumin Triglycerides Amylase Free T4 05/29/16 05/30/16 23:45 05:55 CK-MB (CK-2) 1.81 1.71 Troponin I 0.069 0.094 EKG Comments: Sinus tachycardia with LVH Impressions: Chest/Abdomen CTA 05/29/16 18:00 IMPRESSION: No evidence for pulmonary embolic disease. Extensive chronic appearing changes as noted above. Small right pleural effusion is again identified which appears slightly larger than on the previous study. The previously described rounded masslike density in the right lower lobe is again identified. There is a central somewhat low density area and the possibility of a necrotic neoplasm or developing lung abscess cannot be excluded. Large pericardial effusion is again identified. Other findings as noted above Chest X-Ray 05/30/16 06:00 IMPRESSION: STABLE APPEARANCE OF THE CHEST. SUPPORT DEVICES UNCHANGED. Assessment & Plan - Diagnosis (1) Cardiac arrest Is this a current diagnosis for this admission?: Yes (2) Acute hypoxemic respiratory failure Is this a current diagnosis for this admission?: Yes (3) End stage renal disease Is this a current diagnosis for this admission?: Yes (4) Lung cancer Qualifiers: Laterality: unspecified laterality Lung location: unspecified part of lung Qualified Code(s): C34.90 - Malignant neoplasm of unspecified part of unspecified bronchus or lung Is this a current diagnosis for this admission?: Yes (5) Septic shock Is this a current diagnosis for this admission?: Yes (6) Pulmonary fibrosis Is this a current diagnosis for this admission?: Yes (7) Scleroderma Is this a current diagnosis for this admission?: Yes (8) Cardiomyopathy Qualifiers: Cardiomyopathy type: unspecified Qualified Code(s): I42.9 - Cardiomyopathy, unspecified Is this a current diagnosis for this admission?: Yes - Notes Notes: Cardiac arrest: Patient was noted to have pulseless electrical activity. This is most likely related to severe LV systolic dysfunction, severe hypoglycemia, severe pulmonary hypertension. Pericardial tamponade in the differential diagnosis but was ruled out by a stat echocardiogram. Patient did respond to brief cardiac compressions and epinephrine. If needed for further arrest may consider epinephrine drip. Acute hypoxemic respiratory failure: Continue ventilatory management and oxygenation as you were doing. End-stage renal disease: Patient has been on dialysis. Currently not in a position to receive dialysis in this institution. Lung cancer: Patient has a history of this. Currently am told she is not being treated. Possible lung abscess. Septic shock: Patient has elevated white cell count, is hypotensive, tachycardic. Continue with intermittent IV fluid boluses and vasopressors. Pulmonary fibrosis: This is secondary to scleroderma and a scleroderma pulmonary involvement. There could be other causes as well. Scleroderma: Patient has significant scleroderma with involvement of small vessels. Cardiomyopathy: 2-D echocardiogram showed LVEF of just 15% with severe diffuse hypokinesia. Patient also noted to have RV systolic dysfunction. Prognosis is felt to be grave. Case was discussed with multiple family members and also nurses as well as Dr. Spears. [place] that any chance of survival is poor and is probably better off being transferred to tertiary care as much more cannot be provided in this institution. I was present during the initial code, during cardiac compression and also while the stat echocardiogram was being performed. I advised multiple additional images for echocardiogram. - Time Time Spent: 50 to 70 Minutes Critical Time spent with patient: Greater than 35 minutes - CODE STATUS was discussed, patient remains full code. Surrogate decision-maker patient's . Multiple medical problems were addressed.More than 50% of the time spent coordinating care, discussing management plans with involved caregivers. Management plans discussed with involved personnels. Medical decision making was of moderate complexity. Medications reviewed and adjusted accordingly: Yes
--- NOTE | 2016-05-30 17:00 | XCELERA REPORT ---
[address] [address] Transthoracic Echocardiogram Report Name: FELISA MILES Age: 40 yrs Gender: Female : 1975 Patient Status: Inpatient Patient Location: ICU\S\610\S\A Study Date: 05/30/2016 02:19 PM Height: 66 in Weight: 108 lb BSA: 1.5 m2 Procedure: A complete two-dimensional transthoracic echocardiogram was performed (2D, M-mode, spectral and color flow Doppler). The study was technically adequate with some images being suboptimal in quality. Reason For Study: R/O tamponade Ordering Physician: MCKINLEY HANSON Performed By: Aixa Thompson Interpretation Summary The Ejection Fraction estimate is <20% Left ventricular systolic function is severely reduced. Doppler measurements suggest reversible restrictive left ventricular relaxation, which is associated with grade III/IV or moderate diastolic dysfunction The left ventricle is mildly dilated. There is mild concentric left ventricular hypertrophy. There is severe global hypokinesis of the left ventricle. There is septal wall akinesis The right ventricle appears to be hypertrophied The right ventricle is mildly dilated. The right ventricular systolic function is severely reduced. The right atrium is dilated The left atrium is mildly dilated. There is a mild amount of mitral regurgitation There is no mitral valve stenosis. No aortic regurgitation is present. There is no aortic valve stenosis There is a mild to moderate amount of tricuspid regurgitation Right ventricular systolic pressure is estimated to be elevated at 40- 50mmHg. There is moderate pulmonary hypertension by echo The aortic root is not well visualized. The inferior vena cava appeared normal and decreased < 50% with respiration (RAP 10-15 mmHg) Small pericardial effusion. There are no echocardiographic or Doppler indications for cardiac tamponade MMode/2D Measurements \T\ Calculations RVDd: 3.0 cm LVIDd: 5.6 cmFS: 7.0 % Ao root diam: 3.2 cm IVSd: 1.1 cm LVIDs: 5.2 cmEDV(Teich): 150.6 ml LVPWd: 1.2 cmESV(Teich): 127.3 ml Ao root area: 8.0 cm2 EF(Teich): 15.5 % LA dimension: 4.0 cm LVOT diam: 2.4 cm LVOT area: 4.4 cm2 Doppler Measurements \T\ Calculations MV E max quirino: MV P1/2t max quirino: Ao V2 max: LV V1 max P.8 cm/sec 92.3 cm/sec 130.3 cm/sec 3.3 mmHg MV A max quirino: MV P1/2t: 27.6 msec Ao max PG: LV V1 max: 53.3 cm/sec MVA(P1/2t): 8.0 cm2 6.8 mmHg 91.3 cm/sec MV E/A: 1.7 MV dec slope: LARRY(V,D): 3.1 cm2 981.3 cm/sec2 PA V2 max: PI end-d quirino: TR max quirino: 64.7 cm/sec 146.6 cm/sec 287.8 cm/sec PA max PG: TR max P.7 mmHg 33.1 mmHg Left Ventricle The left ventricle is mildly dilated. There is mild concentric left ventricular hypertrophy. Left ventricular systolic function is severely reduced. The Ejection Fraction estimate is <20%. Doppler measurements suggest reversible restrictive left ventricular relaxation, which is associated with grade III/IV or moderate diastolic dysfunction. There is severe global hypokinesis of the left ventricle. There is septal wall akinesis. Right Ventricle The right ventricle is mildly dilated. The right ventricle appears to be hypertrophied. The right ventricular systolic function is severely reduced. Atria The right atrium is dilated. The left atrium is mildly dilated. Interarterial septum not well visualized and not well dopplered. Cannot comment on ASD/PFO presence. Mitral Valve The mitral valve is grossly normal. There is no mitral valve stenosis. There is a mild amount of mitral regurgitation. Aortic Valve The aortic valve is grossly normal. There is no aortic valve stenosis. No aortic regurgitation is present. Tricuspid Valve The tricuspid valve is not well visualized, but is grossly normal. There is no tricuspid stenosis. There is a mild to moderate amount of tricuspid regurgitation. Right ventricular systolic pressure is estimated to be elevated at 40-50mmHg. There is moderate pulmonary hypertension by echo. Pulmonic Valve The pulmonic valve is not well seen, but is grossly normal. There is no pulmonic valvular stenosis. There is a mild amount of pulmonic regurgitation. Great Vessels The aortic root is not well visualized. The inferior vena cava appeared normal and decreased < 50% with respiration (RAP 10-15 mmHg). Effusions Small pericardial effusion. There are no echocardiographic or Doppler indications for cardiac tamponade. : MCKINLEY HANSON > Mckinley Hanson
[2016-05-30] MEDS ORDERED: VASOPRESSIN INJ 20 UNIT/1 ML VIAL ONE (17:11)
[2016-05-30] MEDS: IMIPENEM/CILASTATIN SODIUM 500 MG in NORMAL SALINE 100 ML IV SCH (17:48)
[2016-05-30] MEDS: DEXTROSE 50%-WATER SYRINGE 25 GM/50 ML DOSE IV PRN ×6 (17:49→22:53)
--- NOTE | 2016-05-30 17:49 | PDOC TRANSFER SUMMARY ---
General Admission Date/PCP: 05/29/16 21:38 JORGE ALBERTO GARZA MD Admission Date: 05/29/16 Transfer Date: 05/30/16 Accepting Facility: [facility] Resuscitation Status: Full Code - Transfer Diagnosis (1) Acute hypoxemic respiratory failure Is this a current diagnosis for this admission?: Yes (2) Lung cancer Is this a current diagnosis for this admission?: Yes (3) Lung abscess Is this a current diagnosis for this admission?: Yes (4) End stage renal disease Is this a current diagnosis for this admission?: Yes (5) Cardiac arrest Is this a current diagnosis for this admission?: Yes (6) Cardiogenic shock Is this a current diagnosis for this admission?: Yes - Transfer Medications Home Medications: Amlodipine Besylate [Norvasc 10 mg Tablet] 10 mg PO DAILY 05/18/16 Amoxicillin 250 mg PO BID 05/18/16 Doxazosin Mesylate [Cardura 4 mg Tablet] 4 mg PO QHS 05/18/16 Lisinopril [Prinivil 40 mg Tablet] 40 mg PO DAILY 05/18/16 Metoprolol Tartrate [Lopressor 100 mg Tablet] 100 mg PO Q12 05/18/16 Prednisone 10 mg PO DAILY 05/18/16 Sildenafil Citrate [Viagra] 25 mg PO Q8 05/18/16 Transfer Medications: Current Medications Dextrose (Dextrose Inj 50% Syringe (25 Gm/50 Ml)) 12.5 gm IV PRN PRN; Protocol PRN Reason: FOR BG 50-69 IN ALERT PATIENT Stop: 06/29/16 16:18 Dextrose (Dextrose Inj 50% Syringe (25 Gm/50 Ml)) 25 gm IV PRN PRN PRN Reason: Protocol Stop: 06/29/16 16:18 Glucagon (Glucagen Inj 1 Mg Vial) 1 mg IM PRN PRN; Protocol PRN Reason: EVALUATE FOR BG < 70 Stop: 06/29/16 16:18 Glucose (Glutose 40% Gel 15 Gm Tube) 15 gm PO PRN PRN; Protocol PRN Reason: FOR BG 50-69 IN ALERT PATIENT Stop: 06/29/16 16:18 Glucose (Glutose 40% Gel 15 Gm Tube) 30 gm PO PRN PRN; Protocol PRN Reason: FOR BG < 50 IN ALERT PATIENT Stop: 06/29/16 16:18 Heparin Sodium (Porcine) (Heparin Inj 5,000 Units/Ml 1 Ml Syringe) 5,000 unit SUBCUT Q8 [facility] Stop: 06/28/16 21:59 Last Admin: 05/30/16 15:07 Dose: 5,000 unit Propofol (Diprivan Rtu 1000 Mg/100 Ml Inf.Bottle) 100 mls @ 0 mls/hr IV CONTINUOUS PRN; Protocol; Titrate PRN Reason: THIS MED IS NOT "PRN" Stop: 06/28/16 21:25 Last Admin: 05/30/16 11:59 Dose: 100 ml Norepinephrine Bitartrate 4 mg (/ Dextrose) 254 mls @ 0 mls/hr IV CONTINUOUS PRN; Protocol; Titrate PRN Reason: THIS MED IS NOT "PRN" Stop: 06/28/16 23:14 Last Admin: 05/30/16 16:15 Dose: 4 mg Levofloxacin/Dextrose (Levaquin Rtu 500mg/D5w 100 Ml Premix) 500 mg in 100 mls @ 100 mls/hr IV Q2D@0800 [facility] Stop: 06/08/16 07:59 Imipenem/Cilastatin Sodium 500 (mg/ Sodium Chloride) 100 mls @ 100 mls/hr IV Q12A [facility] Stop: 06/06/16 17:59 Vancomycin HCl 500 mg/ (Dextrose) 100 mls @ 66.667 mls/hr IV QHS [facility] Stop: 05/30/16 23:29 Vancomycin HCl 750 mg/ (Dextrose) 250 mls @ 166.667 mls/hr IV PDIA [facility] Stop: 06/07/16 17:59 Dextrose/Sodium Chloride (D5-1/2ns 1000 Ml Iv Soln) 1,000 mls @ 75 mls/hr IV CONTINUOUS PRN PRN Reason: THIS MED IS NOT "PRN" Stop: 06/29/16 15:04 Insulin Human Lispro (Humalog Insulin 100 Unit/1 Ml 3 Ml Vial) 0 - 12 unit SUBCUT Q6HP PRN PRN Reason: Protocol Stop: 06/29/16 16:18 Morphine Sulfate (Morphine 10 Mg/Ml Inj) 2 mg IV Q2HP PRN Stop: 06/06/16 12:55 Last Admin: 05/30/16 15:08 Dose: 2 mg Sodium Chloride (Saline Flush 2.5 Ml Monoject Prefil Syrin) 2.5 ml IV Q8 [facility] Stop: 06/28/16 21:59 Last Admin: 05/30/16 15:08 Dose: 2.5 ml - Allergies Allergies/Adverse Reactions: Shellfish * [Shellfish] Allergy (Verified 05/29/16 17:26) Hospital Course Hospital Course: Patient was admitted 05/29/2016 when she presented with acute hypoxemic respiratory failure,, patient is known to have progressive lung cancer, end- stage renal disease on maintenance hemodialysis, systemic sclerosis complicated with pulmonary fibrosis, lung cancer and kidney failure she was hemodialyzed on 05/29/2016 before dialysis she had shortness of breath she thought dialysis would improved the symptoms but after dialysis was still symptomatic so she came to the mergency room, in the emergency room she was evaluated CTA chest was done and it showed extensive chronic changes with extensive subpleural honeycombing in the lung bases also found was a rounded masslike density in the right lower lobe with a central low density with the possibility of a necrotic neoplasm or developing lung abscess cannot be excluded. A condition was seen today she developed pulseless electrical activity and chest compression was ensued with a dose of epinephrine with this blood pressure was restored, 2D echo was done showed ejection fraction of 10% there was mild pericardial effusion but no echo findings to suggest tamponade. Patient is a full code because of the complex nature of her disease we felt she is best manage in a tertiary care center. She is presently on Levophed because of low blood pressure. Physical Exam Vital Signs: Temp Pulse Resp BP Pulse Ox 97.9 F 95 20 72/59 L 100 05/30/16 17:22 05/30/16 10:00 05/30/16 16:30 05/30/16 16:08 05/30/16 16:00 Intake & Output 05/29/16 05/30/16 05/31/16 06:59 06:59 06:59 Intake Total 335 674 Output Total 0 0 Balance 335 674 Weight 49.3 kg General appearance: PRESENT: other - Intubated Cardiovascular exam: PRESENT: +S1, systolic murmur GI/Abdominal exam: PRESENT: soft Results Laboratory Results: 05/30/16 06:37 05/30/16 05:55 05/29/16 05/29/16 05/29/16 22:29 23:45 23:45 WBC RBC Hgb Hct MCV MCH MCHC RDW Plt Count Seg Neutrophils % Lymphocytes % Monocytes % Eosinophils % Basophils % Absolute Neutrophils Absolute Lymphocytes Absolute Monocytes Absolute Eosinophils Absolute Basophils Carbonic Acid 1.00 L HCO3/H2CO3 Ratio 14:1 ABG pH 7.26 L ABG pCO2 33.3 L ABG pO2 451.6 H ABG HCO3 14.6 L ABG O2 Saturation 99.8 H ABG Base Excess -11.3 FiO2 100% Sodium Potassium Chloride Carbon Dioxide Anion Gap BUN Creatinine Est GFR ( Amer) Est GFR (Non-Af Amer) Glucose Lactic Acid Calcium Total Bilirubin AST ALT Alkaline Phosphatase Ammonia < 8.7 L Total Protein Albumin Triglycerides Amylase 94 Free T4 05/29/16 05/29/16 05/30/16 23:45 23:45 05:55 WBC RBC Hgb Hct MCV MCH MCHC RDW Plt Count Seg Neutrophils % Lymphocytes % Monocytes % Eosinophils % Basophils % Absolute Neutrophils Absolute Lymphocytes Absolute Monocytes Absolute Eosinophils Absolute Basophils Carbonic Acid HCO3/H2CO3 Ratio ABG pH ABG pCO2 ABG pO2 ABG HCO3 ABG O2 Saturation ABG Base Excess FiO2 Sodium 141.7 Potassium 4.2 Chloride 105 Carbon Dioxide 21 L Anion Gap 16 BUN 43 H Creatinine 2.45 H Est GFR ( Amer) 26 L Est GFR (Non-Af Amer) 22 L Glucose 67 L Lactic Acid 3.0 H Calcium 8.1 L Total Bilirubin 1.1 AST 157 H ALT 199 H Alkaline Phosphatase 483 H Ammonia Total Protein 5.6 L Albumin 2.9 L Triglycerides Amylase Free T4 3.13 H 05/30/16 05/30/16 05/30/16 05:55 05:55 06:37 WBC Cancelled 19.7 H RBC Cancelled 4.14 Hgb Cancelled 11.8 L Hct Cancelled 38.9 MCV Cancelled 94 D MCH Cancelled 28.5 MCHC Cancelled 30.3 L RDW Cancelled 21.1 H Plt Count Cancelled 268 Seg Neutrophils % Cancelled 84.5 H Lymphocytes % Cancelled 10.9 L Monocytes % Cancelled 4.0 Eosinophils % Cancelled 0.1 Basophils % Cancelled 0.5 Absolute Neutrophils Cancelled 16.6 H Absolute Lymphocytes Cancelled 2.1 Absolute Monocytes Cancelled 0.8 Absolute Eosinophils Cancelled 0.0 Absolute Basophils Cancelled 0.1 Carbonic Acid HCO3/H2CO3 Ratio ABG pH ABG pCO2 ABG pO2 ABG HCO3 ABG O2 Saturation ABG Base Excess FiO2 Sodium Potassium Chloride Carbon Dioxide Anion Gap BUN Creatinine Est GFR ( Amer) Est GFR (Non-Af Amer) Glucose Lactic Acid Calcium Total Bilirubin AST ALT Alkaline Phosphatase Ammonia Total Protein Albumin Triglycerides 192 H Amylase Free T4 05/30/16 13:10 WBC RBC Hgb Hct MCV MCH MCHC RDW Plt Count Seg Neutrophils % Lymphocytes % Monocytes % Eosinophils % Basophils % Absolute Neutrophils Absolute Lymphocytes Absolute Monocytes Absolute Eosinophils Absolute Basophils Carbonic Acid 1.01 L HCO3/H2CO3 Ratio 18:1 ABG pH 7.36 ABG pCO2 33.6 L ABG pO2 79.4 L ABG HCO3 18.6 L ABG O2 Saturation 95.5 ABG Base Excess -5.9 FiO2 45% Sodium Potassium Chloride Carbon Dioxide Anion Gap BUN Creatinine Est GFR ( Amer) Est GFR (Non-Af Amer) Glucose Lactic Acid Calcium Total Bilirubin AST ALT Alkaline Phosphatase Ammonia Total Protein Albumin Triglycerides Amylase Free T4 05/29/16 05/30/16 23:45 05:55 CK-MB (CK-2) 1.81 1.71 Troponin I 0.069 0.094 Impressions: Chest/Abdomen CTA 05/29/16 18:00 IMPRESSION: No evidence for pulmonary embolic disease. Extensive chronic appearing changes as noted above. Small right pleural effusion is again identified which appears slightly larger than on the previous study. The previously described rounded masslike density in the right lower lobe is again identified. There is a central somewhat low density area and the possibility of a necrotic neoplasm or developing lung abscess cannot be excluded. Large pericardial effusion is again identified. Other findings as noted above Chest X-Ray 05/30/16 06:00 IMPRESSION: STABLE APPEARANCE OF THE CHEST. SUPPORT DEVICES UNCHANGED.
[2016-05-30 18:50] LABS: ARTERIAL BLOOD BASE EXCESS -8.9 mmol/L; ARTERIAL BLOOD O2 SATURATION 99.7 % (94-98)
[2016-05-30] MEDS: DEXTROSE 5%-WATER 250 ML with VASOPRESSIN 100 UNIT IV PRN ×2 (19:09)
[2016-05-30] MEDS: DEXTROSE 10%-WATER 1,000 ML IV PRN (19:11)
--- NOTE | 2016-05-30 20:45 | EKG REPORT ---
SEVERITY:- ABNORMAL ECG - SINUS TACHYCARDIA PROBABLE LEFT ATRIAL ABNORMALITY LEFT ANTERIOR FASCICULAR BLOCK LVH WITH SECONDARY REPOLARIZATION ABNORMALITY PROLONGED QT INTERVAL : Confirmed by: Sneha Joyce MD 30-May-2016 20:45:29
[2016-05-30] MEDS ORDERED: VANCOMYCIN HCL 500 MG in DEXTROSE 5%-WATER 100 ML IV SCH (22:00)
[2016-05-30 22:19] LABS: ANION GAP 14 (5-19); BLOOD UREA NITROGEN 44 mg/dL (7-20); CARBON DIOXIDE 20 mmol/L (22-30); CHLORIDE 104 mmol/L (98-107); CREATININE RESULT 2.67 mg/dL (0.52-1.25); GLUCOSE 397 mg/dL (75-110); POTASSIUM 3.5 mmol/L (3.6-5.0); SODIUM 137.8 mmol/L (137-145)
[2016-05-30 22:27] LABS: CALCIUM 6.8 mg/dL (8.4-10.2)
[2016-05-31] MEDS: PROPOFOL 100 ML IV PRN ×2 (04:24→17:36)
[2016-05-31] MEDS: IMIPENEM/CILASTATIN SODIUM 500 MG in NORMAL SALINE 100 ML IV SCH ×2 (05:29→17:16)
[2016-05-31] MEDS: HEPARIN SOD (PORCINE) 5,000 UNIT/ML 1 ML SYRINGE SUBCUT SCH ×3 (05:29→21:03)
[2016-05-31 05:30] LABS: ARTERIAL BLOOD BASE EXCESS -6.6 mmol/L
[2016-05-31 05:33] LABS: ABSOLUTE BASOPHILS # (AUTO) 0.1 10^3/uL (0.0-0.2); ABSOLUTE EOSINOPHILS # (AUTO) 0.2 10^3/uL (0.0-0.6); ABSOLUTE LYMPHOCYTES (AUTO) 0.7 10^3/uL (0.5-4.7); ABSOLUTE MONOCYTES (AUTO) 0.6 10^3/uL (0.1-1.4); ABSOLUTE NEUT (AUTO) 12.7 10^3/uL (1.7-8.2); BASOPHILS % (AUTO) 0.5 % (0-2); EOSINOPHILS % (AUTO) 1.7 % (0-6); HEMATOCRIT 34.5 % (36.0-47.0); HEMOGLOBIN 10.7 g/dL (12.0-15.5); HGB HCT DIFFERENCE -2.4; LYMPHOCYTES % (AUTO) 5.1 % (13-45); MEAN CORPUSCULAR HEMOGLOBIN 28.6 pg (27.0-33.4); MEAN CORPUSCULAR HGB CONC 31.1 g/dL (32.0-36.0); MEAN CORPUSCULAR VOLUME 92 fl (80-97); MONOCYTES % (AUTO) 4.4 % (3-13); RED BLOOD COUNT 3.75 10^6/uL (3.72-5.28); RED CELL DISTRIBUTION WIDTH 20.9 % (11.5-14.0); SEGMENTED NEUTROPHILS % (AUTO) 88.3 % (42-78); WHITE BLOOD COUNT 14.3 10^3/uL (4.0-10.5)
[2016-05-31 05:43] LABS: ALANINE AMINOTRANSFERASE 185 U/L (9-52); ALBUMIN 2.5 g/dL (3.5-5.0); ALKALINE PHOSPHATASE 309 U/L (38-126); ANION GAP 14 (5-19); ASPARTATE AMINO TRANSFERASE 73 U/L (14-36); BILIRUBIN,TOTAL 1.1 mg/dL (0.2-1.3); BLOOD UREA NITROGEN 47 mg/dL (7-20); CALCIUM 7.7 mg/dL (8.4-10.2); CARBON DIOXIDE 20 mmol/L (22-30); CHLORIDE 105 mmol/L (98-107); CREATINE KINASE 31 U/L (30-135); CREATININE RESULT 3.08 mg/dL (0.52-1.25); GLUCOSE 113 mg/dL (75-110); MAGNESIUM 1.6 mg/dL (1.6-2.3); PHOSPHORUS 4.6 mg/dL (2.5-4.5); POTASSIUM 3.6 mmol/L (3.6-5.0); SODIUM 138.7 mmol/L (137-145)
[2016-05-31 05:55] LABS: CREATINE KINASE MB 1.46 ng/mL (<4.55); TROPONIN I 0.079 ng/mL
--- NOTE | 2016-05-31 09:14 | PDOC CONSULTATION ---
Consultation Consult Date: 05/30/16 Attending physician:: JORGE ALBERTO GARZA Consult reason:: resp fail;metastatic disease History of Present Illness Admission Date/PCP: 05/29/16 21:38 JORGE ALBERTO GARZA MD History of Present Illness: all information from chart patient intubatedFELISA MILES is a 40 year old female, patient is well-known to me she has progressive lung cancer, end-stage renal disease on hemodialysis, systemic sclerosis complicated with pulmonary fibrosis and lung cancer, she had hemodialysis earlier today, patient spouse said she was short of breath this morning before she was hemodialyzed, after dialysis she improved some and then it got worse and he brought her to the emergency room. In the emergency room she was evaluated she was found to be hypoxemic and then she was intubated. Lab data were reviewed on the CTA was reviewed, when she arrived emergency room CTA chest was done and it showed extensive chronic changes with extensive subpleural honeycombing in the lung bases a small right pleural effusion which appears larger than previous study. Also found was a rounded masslike density in the right lower lobe there is a central low density on the possibility of a necrotic neoplasm or developing lung abscess cannot be excluded. There is bilateral groundglass opacities which could represent infiltrate or pulmonary edema. Patient overall prognosis is poor. The last time she was intubated she was transferred to [facility] where she was treated and ultimately she was extubated. The lung cancer is not being treated. She had episode of low blood pressure when she was intubated in the emergency room and she was treated with intravenous vasopressor. This history was reviewed and confirmed. This afternoon, around 1:30 PM, patient was noted to go into pulseless electrical activity. This was confirmed as the patient had arterial line. Patient had brief cardiac compression and given epinephrine 1 dose of 1 mg. Patient subsequently came around. Because of pulseless electrical activity, we felt that we needed to rule out cardiac tamponade. A 2-D echocardiogram was performed on stat basis. It did not show any evidence of tamponade. Patient did have pericardial effusion which is felt to be mild to moderate in severity except over the cranial aspect right atrium where it was more increased. Patient was also noted to have low blood sugar, patient was given 2 ampules of D50 IV and subsequently started on D5 half-normal saline drip. I had multiple talks with patient's family including patient's daughter, . Discussed that this situation is very grave and patient is unlikely to do well. Also informed that there is not much cardiac support in this institution and therefore it's best for the patient to be transferred to tertiary care. They were also encouraged to make a code decision as whatever we do, prognosis is going to be poor however they insist on continuing patient on full code. Later on I talked with the nurses, this was actually 2 hours after her cardiac resuscitation, has declined transfer and declined any change in CODE STATUS. Patient currently on high-dose Levophed. Will consider adding other vasopressors if needed. Patient was noted to be severely tachycardic on other vasopressors. Past Medical History Cardiac Medical History: Reports: DVT, Hyperlipidema, Hypertension Pulmonary Medical History: Reports: Asthma, Pneumonia Renal/ Medical History: Reports: End Stage Renal Disease Malignancy Medical History: Reports: Lung Cancer GI Medical History: Reports: Gastroesophageal Reflux Disease Musculoskeltal Medical History: Reports: Gout, Other - Systemic sclerosis complicated with pulmonary fibrosis, end-stage renal disease on hemodialysis Infectious Medical History: Denies: Methicillin-Resistant Staph Aureus Past Surgical History Past Surgical History: Reports: Section, Cholecystectomy, Other - Dialysis access related surgeries were noted Social History Information Source: [facility] Records Smoking Status: Never Smoker Frequency of Alcohol Use: None Hx Recreational Drug Use: No Drugs: None Hx Prescription Drug Abuse: No - Advance Directive Resuscitation Status: Full Code Family History Family History: Reviewed & Not Pertinent Parental Family History Reviewed: No Children Family History Reviewed: No Sibling(s) Family History Reviewed.: No Medication/Allergy Home Medications: Amlodipine Besylate [Norvasc 10 mg Tablet] 10 mg PO DAILY 05/18/16 Amoxicillin 250 mg PO BID 05/18/16 Doxazosin Mesylate [Cardura 4 mg Tablet] 4 mg PO QHS 05/18/16 Lisinopril [Prinivil 40 mg Tablet] 40 mg PO DAILY 05/18/16 Metoprolol Tartrate [Lopressor 100 mg Tablet] 100 mg PO Q12 05/18/16 Prednisone 10 mg PO DAILY 05/18/16 Sildenafil Citrate [Viagra] 25 mg PO Q8 05/18/16 Allergies/Adverse Reactions: Shellfish * [Shellfish] Allergy (Verified 05/29/16 17:26) Review of Systems ROS unobtainable: Due to endotracheal tube Physical Exam Vital Signs: Temp Pulse Resp BP Pulse Ox 98.2 F 78 22 H 40/21 L 96 05/31/16 08:00 05/30/16 21:03 05/31/16 08:20 05/31/16 08:07 05/31/16 08:20 Intake & Output 05/30/16 05/31/16 06/01/16 06:59 06:59 06:59 Intake Total 335 1691 Output Total 0 0 Balance 335 1691 Weight 49.3 kg 52 kg General appearance: PRESENT: no acute distress, disheveled, other - cachectic Head exam: PRESENT: atraumatic, normocephalic Eye exam: PRESENT: conjunctiva pale Mouth exam: PRESENT: dry mucosa, other - Et tube Neck exam: ABSENT: carotid bruit, JVD, lymphadenopathy, thyromegaly Respiratory exam: PRESENT: decreased breath sounds, prolonged expiratory phas, rales, stridor, symmetrical, unlabored, wheezes Cardiovascular exam: PRESENT: irregular rhythm Pulses: PRESENT: normal radial pulses GI/Abdominal exam: PRESENT: diminished bowel sounds Rectal exam: PRESENT: deferred Musculoskeletal exam: PRESENT: normal inspection Skin exam: PRESENT: pallor Results Laboratory Results: 05/31/16 05:15 05/31/16 05:15 05/30/16 05/30/16 05/30/16 13:10 18:42 21:55 WBC RBC Hgb Hct MCV MCH MCHC RDW Plt Count Seg Neutrophils % Lymphocytes % Monocytes % Eosinophils % Basophils % Absolute Neutrophils Absolute Lymphocytes Absolute Monocytes Absolute Eosinophils Absolute Basophils Carbonic Acid 1.01 L 1.04 L HCO3/H2CO3 Ratio 18:1 15:1 ABG pH 7.36 7.30 L ABG pCO2 33.6 L 34.7 L ABG pO2 79.4 L 361.5 H ABG HCO3 18.6 L 16.6 L ABG O2 Saturation 95.5 99.7 H ABG Base Excess -5.9 -8.9 FiO2 45% 100% Sodium 137.8 Potassium 3.5 L Chloride 104 Carbon Dioxide 20 L Anion Gap 14 BUN 44 H Creatinine 2.67 H Est GFR ( Amer) 24 L Est GFR (Non-Af Amer) 20 L Glucose 397 H Calcium 6.8 L* Phosphorus Magnesium Total Bilirubin AST ALT Alkaline Phosphatase Total Protein Albumin 05/30/16 05/30/16 05/31/16 21:55 23:45 05:15 WBC RBC Hgb Hct MCV MCH MCHC RDW Plt Count Seg Neutrophils % Lymphocytes % Monocytes % Eosinophils % Basophils % Absolute Neutrophils Absolute Lymphocytes Absolute Monocytes Absolute Eosinophils Absolute Basophils Carbonic Acid 0.99 L HCO3/H2CO3 Ratio 18:1 ABG pH 7.36 ABG pCO2 32.9 L ABG pO2 156.0 H ABG HCO3 18.0 L ABG O2 Saturation 99.0 H ABG Base Excess -6.6 FiO2 50% Sodium Potassium Chloride Carbon Dioxide Anion Gap BUN Creatinine Est GFR ( Amer) Est GFR (Non-Af Amer) Glucose 423 H* Calcium Phosphorus Magnesium Total Bilirubin AST ALT Alkaline Phosphatase Total Protein Albumin 2.3 L 05/31/16 05/31/16 05:15 05:15 WBC 14.3 H RBC 3.75 Hgb 10.7 L Hct 34.5 L MCV 92 MCH 28.6 MCHC 31.1 L RDW 20.9 H Plt Count 235 Seg Neutrophils % 88.3 H Lymphocytes % 5.1 L Monocytes % 4.4 Eosinophils % 1.7 Basophils % 0.5 Absolute Neutrophils 12.7 H Absolute Lymphocytes 0.7 Absolute Monocytes 0.6 Absolute Eosinophils 0.2 Absolute Basophils 0.1 Carbonic Acid HCO3/H2CO3 Ratio ABG pH ABG pCO2 ABG pO2 ABG HCO3 ABG O2 Saturation ABG Base Excess FiO2 Sodium 138.7 Potassium 3.6 Chloride 105 Carbon Dioxide 20 L Anion Gap 14 BUN 47 H Creatinine 3.08 H Est GFR ( Amer) 20 L Est GFR (Non-Af Amer) 17 L Glucose 113 H Calcium 7.7 L Phosphorus 4.6 H Magnesium 1.6 Total Bilirubin 1.1 AST 73 H ALT 185 H Alkaline Phosphatase 309 H Total Protein 5.0 L Albumin 2.5 L 05/29/16 05/30/16 05/31/16 23:45 05:55 05:15 Creatine Kinase 31 CK-MB (CK-2) 1.81 1.71 Troponin I 0.069 0.094 05/31/16 05:15 Creatine Kinase CK-MB (CK-2) 1.46 Troponin I 0.079 Impressions: Chest/Abdomen CTA 05/29/16 18:00 IMPRESSION: No evidence for pulmonary embolic disease. Extensive chronic appearing changes as noted above. Small right pleural effusion is again identified which appears slightly larger than on the previous study. The previously described rounded masslike density in the right lower lobe is again identified. There is a central somewhat low density area and the possibility of a necrotic neoplasm or developing lung abscess cannot be excluded. Large pericardial effusion is again identified. Other findings as noted above Chest X-Ray 05/31/16 06:00 IMPRESSION: Asymmetric edema or sepsis. No significant change. No pneumothorax. Assessment & Plan - Diagnosis (1) Acute hypoxemic respiratory failure Is this a current diagnosis for this admission?: YesPlan: oxgenating well (2) End stage renal disease Is this a current diagnosis for this admission?: YesPlan: hemodialysis (3) Lung abscess Qualifiers: Pulmonary abscess pneumonia presence: with pneumonia Laterality: right Lung location: unspecified part of lung Qualified Code(s): J85.1 - Abscess of lung with pneumonia Is this a current diagnosis for this admission?: Yes (4) Lung cancer Qualifiers: Laterality: unspecified laterality Lung location: unspecified part of lung Qualified Code(s): C34.90 - Malignant neoplasm of unspecified part of unspecified bronchus or lung Is this a current diagnosis for this admission?: Yes - Time Critical Time spent with patient: 35 or more minutes
--- NOTE | 2016-05-31 09:19 | PDOC PROGRESS REPORT ---
Subjective Progress Note for:: 05/31/16 Subjective:: intubated Physical Exam Vital Signs: Temp Pulse Resp BP Pulse Ox 98.2 F 78 22 H 40/21 L 96 05/31/16 08:00 05/30/16 21:03 05/31/16 08:20 05/31/16 08:07 05/31/16 08:20 Intake & Output 05/30/16 05/31/16 06/01/16 06:59 06:59 06:59 Intake Total 335 1691 Output Total 0 0 Balance 335 1691 Weight 49.3 kg 52 kg General appearance: PRESENT: disheveled, other - cachectic Head exam: PRESENT: atraumatic, normocephalic Eye exam: PRESENT: conjunctiva pale Mouth exam: PRESENT: neck supple, other - ETT tube Neck exam: ABSENT: carotid bruit, JVD, lymphadenopathy, thyromegaly Respiratory exam: PRESENT: decreased breath sounds, prolonged expiratory phas, rales, rhonchi, symmetrical, unlabored, wheezes Cardiovascular exam: PRESENT: irregular rhythm Pulses: PRESENT: normal radial pulses GI/Abdominal exam: PRESENT: normal bowel sounds, soft. ABSENT: distended, guarding, mass, organolmegaly, rebound, tenderness Rectal exam: PRESENT: deferred Gentrourinary exam: PRESENT: indwelling catheter Musculoskeletal exam: PRESENT: normal inspection Skin exam: PRESENT: dry, pallor Results Laboratory Results: 05/31/16 05:15 05/31/16 05:15 05/30/16 05/30/16 05/30/16 13:10 18:42 21:55 WBC RBC Hgb Hct MCV MCH MCHC RDW Plt Count Seg Neutrophils % Lymphocytes % Monocytes % Eosinophils % Basophils % Absolute Neutrophils Absolute Lymphocytes Absolute Monocytes Absolute Eosinophils Absolute Basophils Carbonic Acid 1.01 L 1.04 L HCO3/H2CO3 Ratio 18:1 15:1 ABG pH 7.36 7.30 L ABG pCO2 33.6 L 34.7 L ABG pO2 79.4 L 361.5 H ABG HCO3 18.6 L 16.6 L ABG O2 Saturation 95.5 99.7 H ABG Base Excess -5.9 -8.9 FiO2 45% 100% Sodium 137.8 Potassium 3.5 L Chloride 104 Carbon Dioxide 20 L Anion Gap 14 BUN 44 H Creatinine 2.67 H Est GFR ( Amer) 24 L Est GFR (Non-Af Amer) 20 L Glucose 397 H Calcium 6.8 L* Phosphorus Magnesium Total Bilirubin AST ALT Alkaline Phosphatase Total Protein Albumin 05/30/16 05/30/16 05/31/16 21:55 23:45 05:15 WBC RBC Hgb Hct MCV MCH MCHC RDW Plt Count Seg Neutrophils % Lymphocytes % Monocytes % Eosinophils % Basophils % Absolute Neutrophils Absolute Lymphocytes Absolute Monocytes Absolute Eosinophils Absolute Basophils Carbonic Acid 0.99 L HCO3/H2CO3 Ratio 18:1 ABG pH 7.36 ABG pCO2 32.9 L ABG pO2 156.0 H ABG HCO3 18.0 L ABG O2 Saturation 99.0 H ABG Base Excess -6.6 FiO2 50% Sodium Potassium Chloride Carbon Dioxide Anion Gap BUN Creatinine Est GFR ( Amer) Est GFR (Non-Af Amer) Glucose 423 H* Calcium Phosphorus Magnesium Total Bilirubin AST ALT Alkaline Phosphatase Total Protein Albumin 2.3 L 05/31/16 05/31/16 05:15 05:15 WBC 14.3 H RBC 3.75 Hgb 10.7 L Hct 34.5 L MCV 92 MCH 28.6 MCHC 31.1 L RDW 20.9 H Plt Count 235 Seg Neutrophils % 88.3 H Lymphocytes % 5.1 L Monocytes % 4.4 Eosinophils % 1.7 Basophils % 0.5 Absolute Neutrophils 12.7 H Absolute Lymphocytes 0.7 Absolute Monocytes 0.6 Absolute Eosinophils 0.2 Absolute Basophils 0.1 Carbonic Acid HCO3/H2CO3 Ratio ABG pH ABG pCO2 ABG pO2 ABG HCO3 ABG O2 Saturation ABG Base Excess FiO2 Sodium 138.7 Potassium 3.6 Chloride 105 Carbon Dioxide 20 L Anion Gap 14 BUN 47 H Creatinine 3.08 H Est GFR ( Amer) 20 L Est GFR (Non-Af Amer) 17 L Glucose 113 H Calcium 7.7 L Phosphorus 4.6 H Magnesium 1.6 Total Bilirubin 1.1 AST 73 H ALT 185 H Alkaline Phosphatase 309 H Total Protein 5.0 L Albumin 2.5 L 05/29/16 05/30/16 05/31/16 23:45 05:55 05:15 Creatine Kinase 31 CK-MB (CK-2) 1.81 1.71 Troponin I 0.069 0.094 05/31/16 05:15 Creatine Kinase CK-MB (CK-2) 1.46 Troponin I 0.079 Impressions: Chest/Abdomen CTA 05/29/16 18:00 IMPRESSION: No evidence for pulmonary embolic disease. Extensive chronic appearing changes as noted above. Small right pleural effusion is again identified which appears slightly larger than on the previous study. The previously described rounded masslike density in the right lower lobe is again identified. There is a central somewhat low density area and the possibility of a necrotic neoplasm or developing lung abscess cannot be excluded. Large pericardial effusion is again identified. Other findings as noted above Chest X-Ray 05/31/16 06:00 IMPRESSION: Asymmetric edema or sepsis. No significant change. No pneumothorax. Assessment & Plan - Diagnosis (1) Acute hypoxemic respiratory failure Is this a current diagnosis for this admission?: YesPlan: sp/cv arrest transfer arranged and declined per family (2) End stage renal disease Is this a current diagnosis for this admission?: YesPlan: hemodialysis (3) Lung abscess Qualifiers: Pulmonary abscess pneumonia presence: with pneumonia Laterality: right Lung location: unspecified part of lung Qualified Code(s): J85.1 - Abscess of lung with pneumonia Is this a current diagnosis for this admission?: Yes (4) Lung cancer Qualifiers: Laterality: unspecified laterality Lung location: unspecified part of lung Qualified Code(s): C34.90 - Malignant neoplasm of unspecified part of unspecified bronchus or lung Is this a current diagnosis for this admission?: Yes - Time Critical Time spent with patient: 35 or more minutes - 75 min
[2016-05-31 11:10] LABS: ARTERIAL BLOOD BASE EXCESS -10.1 mmol/L; ARTERIAL BLOOD O2 SATURATION 98.7 % (94-98)
[2016-05-31] MEDS: NORMAL SALINE 1000 ML 1,000 ML IV PRN ×3 (11:45→23:45)
[2016-05-31] MEDS ORDERED: NORMAL SALINE 1000 ML 250 ML IV ONE (11:45)
[2016-05-31] MEDS: MORPHINE SULFATE 10 MG/ML INJ IV PRN ×3 (13:06→23:15)
[2016-05-31] MEDS: DEXTROSE 10%-WATER 1,000 ML IV PRN (14:44)
[2016-05-31 15:50] LABS: ARTERIAL BLOOD BASE EXCESS -7.7 mmol/L; ARTERIAL BLOOD O2 SATURATION 99.4 % (94-98)
[2016-05-31] MEDS ORDERED: EPOETIN ALFA INJ 20000 UNIT/1 ML VIAL (RENAL) IV PRN (16:00)
[2016-05-31] MEDS ORDERED: EPOETIN ALFA 10,000 UNIT in SYRINGE, DISPOSABLE, 1 EACH IV PRN (16:22)
[2016-05-31] MEDS: VANCOMYCIN HCL 750 MG in DEXTROSE 5%-WATER 250 ML IV SCH (17:36)
[2016-05-31] MEDS ORDERED: VANCOMYCIN HCL 500 MG in DEXTROSE 5%-WATER 100 ML IV SCH (18:00)
--- NOTE | 2016-05-31 18:23 | PDOC CONSULTATION ---
Consultation Consult Date: 05/31/16 Consult reason:: Hemodialysis. History of Present Illness Admission Date/PCP: 05/29/16 21:38 JORGE ALBERTO GARZA MD History of Present Illness: The information gathered is from talking with and from chart as patient intubated. FELISA MILES is a 40 year old female, with a h/o progressive lung cancer, end-stage renal disease on hemodialysis, systemic sclerosis complicated with pulmonary fibrosis and lung cancer, was brought to the emergency room with complaints of worsening shortness of breath started before her last dialysis but continued even after dialysis. In the emergency room she was evaluated she was found to be hypoxemic and then she was intubated. She was then transferred to the ICU . CTA chest was done and it showed extensive chronic changes with extensive subpleural honeycombing in the lung bases a small right pleural effusion which appears larger than previous study. Also found was a rounded masslike density in the right lower lobe there is a central low density on the possibility of a necrotic neoplasm or developing lung abscess cannot be excluded. There is bilateral groundglass opacities which could represent infiltrate or pulmonary edema. Patient overall prognosis is poor. The last time she was intubated she was transferred to [facility] where she was treated and ultimately she was extubated. The lung cancer is not being treated. She had episode of low blood pressure when she was intubated in the emergency room and she was treated with intravenous vasopressor. Soon after the her admission in the ER, patient was noted to go into pulseless electrical activity. This was confirmed as the patient had arterial line. Patient had brief cardiac compression and given epinephrine 1 dose of 1 mg. Patient subsequently came around. A 2-D echocardiogram was performed on stat basis. It did not show any evidence of tamponade. Patient did have pericardial effusion which is felt to be mild to moderate in severity except over the cranial aspect right atrium where it was more increased. Patient was also noted to have low blood sugar, patient was given 2 ampules of D50 IV and subsequently started on D5 half-normal saline drip. Dr. Garza has had multiple talks with patient's family including patient's daughter, . But they still want everything done and she is a full code and they have declined transfer to a tertiary care. Patient is on vasopressin after conversion from Levophed. Patient has been is by the bedside in the ICU as I see her. Discussions were done with the treating nurse Stephanie. Patient was seen undergoing hemodialysis when I came back subsequently. She looks very sick. Vital signs are stable with the arterial line showing that her blood pressure is holding. Discussions were done with the treating dialysis nurse Divya and will plan to do a 2 hour dialysis without removing any fluids. I had started her on normal saline earlier when I saw her. Past Medical History Cardiac Medical History: Reports: DVT, Hyperlipidemia, Hypertension-primary Pulmonary Medical History: Reports: Asthma, Pneumonia Renal/ Medical History: Reports: End Stage Renal Disease Malignancy Medical History: Reports: Lung Cancer GI Medical History: Reports: Gastroesophageal Reflux Disease Musculoskeltal Medical History: Reports: Gout, Other - Systemic sclerosis complicated with pulmonary fibrosis, end-stage renal disease on hemodialysis Infectious Medical History: Denies: Methicillin-resist Staph Aureus Hematology Medical History: Reports Anemia of Chronic Kidney Disease Past Surgical History Past Surgical History: Reports: Section, Cholecystectomy, Other - Dialysis access related surgeries were noted Social History Smoking Status: Never Smoker Frequency of Alcohol Use: None Hx Recreational Drug Use: No Drugs: None Hx Prescription Drug Abuse: No - Advance Directive Resuscitation Status: Full Code Family History Parental Family History Reviewed: Yes Children Family History Reviewed: No Sibling(s) Family History Reviewed.: No Medication/Allergy Home Medications: Hydrocodone/Acetaminophen [Hydrocodon-Acetamin 7.5-325/15] 15 ml PO Q6HP PRN Metoprolol Tartrate [Lopressor 100 mg Tablet] 100 mg PO Q12 05/31/16 Sertraline HCl [Zoloft 50 mg Tablet] 50 mg PO DAILY 05/31/16 Tramadol HCl/Acetaminophen [Tramadol-Acetaminophn 37.5-325] 1 each PO Q6 Allergies/Adverse Reactions: Shellfish * [Shellfish] Allergy (Verified 05/29/16 17:26) Review of Systems Review of Systems: Patient is intubated and sedated. Chart review was done and discussions were done with the by the bedside as well as treating nurse Stephanie. Physical Exam Vital Signs: Temp Pulse Resp BP Pulse Ox 98.1 F 140 H 0 L 124/102 H 100 05/31/16 16:00 05/31/16 09:27 05/31/16 14:00 05/31/16 17:08 05/31/16 17:00 Intake & Output 05/30/16 05/31/16 06/01/16 06:59 06:59 06:59 Intake Total 335 1691 Output Total 0 0 0 Balance 335 1691 0 Weight 49.3 kg 52 kg Exam: She looks very sick. She is intubated and sedated. She is very cold and clammy on all extremities. She is cyanotic. Eye exam: PRESENT: conjunctiva pale, PERRLA. ABSENT: nystagmus Ear exam: PRESENT: normal external ear exam Neck exam: ABSENT: lymphadenopathy, meningismus, tenderness, thyromegaly, tracheal deviation Respiratory exam: PRESENT: chest wall tenderness, crackles, tachypnea. ABSENT: rhonchi Cardiovascular exam: PRESENT: +S1, +S2, systolic murmur GI/Abdominal exam: PRESENT: normal bowel sounds, soft. ABSENT: distended, firm , tenderness Neurological exam: PRESENT: altered - Intubated and sedated Skin exam: PRESENT: cyanosis, dry, mottled. ABSENT: erythema, rash Results Laboratory Results: 05/31/16 05:15 05/31/16 12:00 05/30/16 05/30/16 05/30/16 18:42 21:55 21:55 WBC RBC Hgb Hct MCV MCH MCHC RDW Plt Count Seg Neutrophils % Lymphocytes % Monocytes % Eosinophils % Basophils % Absolute Neutrophils Absolute Lymphocytes Absolute Monocytes Absolute Eosinophils Absolute Basophils Carbonic Acid 1.04 L HCO3/H2CO3 Ratio 15:1 ABG pH 7.30 L ABG pCO2 34.7 L ABG pO2 361.5 H ABG HCO3 16.6 L ABG O2 Saturation 99.7 H ABG Base Excess -8.9 FiO2 100% Sodium 137.8 Potassium 3.5 L Chloride 104 Carbon Dioxide 20 L Anion Gap 14 BUN 44 H Creatinine 2.67 H Est GFR ( Amer) 24 L Est GFR (Non-Af Amer) 20 L Glucose 397 H Calcium 6.8 L* Phosphorus Magnesium Total Bilirubin AST ALT Alkaline Phosphatase Total Protein Albumin 2.3 L 05/30/16 05/31/16 05/31/16 23:45 05:15 05:15 WBC RBC Hgb Hct MCV MCH MCHC RDW Plt Count Seg Neutrophils % Lymphocytes % Monocytes % Eosinophils % Basophils % Absolute Neutrophils Absolute Lymphocytes Absolute Monocytes Absolute Eosinophils Absolute Basophils Carbonic Acid 0.99 L HCO3/H2CO3 Ratio 18:1 ABG pH 7.36 ABG pCO2 32.9 L ABG pO2 156.0 H ABG HCO3 18.0 L ABG O2 Saturation 99.0 H ABG Base Excess -6.6 FiO2 50% Sodium 138.7 Potassium 3.6 Chloride 105 Carbon Dioxide 20 L Anion Gap 14 BUN 47 H Creatinine 3.08 H Est GFR ( Amer) 20 L Est GFR (Non-Af Amer) 17 L Glucose 423 H* 113 H Calcium 7.7 L Phosphorus 4.6 H Magnesium 1.6 Total Bilirubin 1.1 AST 73 H ALT 185 H Alkaline Phosphatase 309 H Total Protein 5.0 L Albumin 2.5 L 05/31/16 05/31/16 05/31/16 05:15 10:45 12:00 WBC 14.3 H RBC 3.75 Hgb 10.7 L Hct 34.5 L MCV 92 MCH 28.6 MCHC 31.1 L RDW 20.9 H Plt Count 235 Seg Neutrophils % 88.3 H Lymphocytes % 5.1 L Monocytes % 4.4 Eosinophils % 1.7 Basophils % 0.5 Absolute Neutrophils 12.7 H Absolute Lymphocytes 0.7 Absolute Monocytes 0.6 Absolute Eosinophils 0.2 Absolute Basophils 0.1 Carbonic Acid 1.01 L HCO3/H2CO3 Ratio 15:1 ABG pH 7.28 L ABG pCO2 33.5 L ABG pO2 147.7 H ABG HCO3 15.5 L ABG O2 Saturation 98.7 H ABG Base Excess -10.1 FiO2 55% Sodium Potassium Chloride Carbon Dioxide Anion Gap BUN Creatinine Est GFR ( Amer) Est GFR (Non-Af Amer) Glucose 157 H Calcium Phosphorus Magnesium Total Bilirubin AST ALT Alkaline Phosphatase Total Protein Albumin 05/31/16 14:55 WBC RBC Hgb Hct MCV MCH MCHC RDW Plt Count Seg Neutrophils % Lymphocytes % Monocytes % Eosinophils % Basophils % Absolute Neutrophils Absolute Lymphocytes Absolute Monocytes Absolute Eosinophils Absolute Basophils Carbonic Acid 0.85 L HCO3/H2CO3 Ratio 19:1 ABG pH 7.37 ABG pCO2 28.4 L ABG pO2 207.1 H ABG HCO3 16.2 L ABG O2 Saturation 99.4 H ABG Base Excess -7.7 FiO2 55% Sodium Potassium Chloride Carbon Dioxide Anion Gap BUN Creatinine Est GFR ( Amer) Est GFR (Non-Af Amer) Glucose Calcium Phosphorus Magnesium Total Bilirubin AST ALT Alkaline Phosphatase Total Protein Albumin 05/29/16 05/30/16 05/31/16 23:45 05:55 05:15 Creatine Kinase 31 CK-MB (CK-2) 1.81 1.71 Troponin I 0.069 0.094 05/31/16 05:15 Creatine Kinase CK-MB (CK-2) 1.46 Troponin I 0.079 Impressions: Chest/Abdomen CTA 05/29/16 18:00 IMPRESSION: No evidence for pulmonary embolic disease. Extensive chronic appearing changes as noted above. Small right pleural effusion is again identified which appears slightly larger than on the previous study. The previously described rounded masslike density in the right lower lobe is again identified. There is a central somewhat low density area and the possibility of a necrotic neoplasm or developing lung abscess cannot be excluded. Large pericardial effusion is again identified. Other findings as noted above Chest X-Ray 05/31/16 06:00 IMPRESSION: Asymmetric edema or sepsis. No significant change. No pneumothorax. Assessment & Plan - Diagnosis (1) Acute hypoxemic respiratory failure Is this a current diagnosis for this admission?: YesPlan: Presently intubated and sedated. Multifactorial. Includes septic shock and pericardial effusion without any zeinab evidences of cardiac tamponade. Overall extremely poor prognosis. However patient's family wants everything done. (2) End stage renal disease Is this a current diagnosis for this admission?: YesPlan: Patient undergoing dialysis. We will plan to run that even without removing any fluids. (3) Lung abscess Qualifiers: Pulmonary abscess pneumonia presence: with pneumonia Laterality: right Lung location: unspecified part of lung Qualified Code(s): J85.1 - Abscess of lung with pneumonia Is this a current diagnosis for this admission?: YesPlan: Patient in septic shock. Patient on antibiotics. Monitor. (4) Lung cancer Qualifiers: Laterality: unspecified laterality Lung location: unspecified part of lung Qualified Code(s): C34.90 - Malignant neoplasm of unspecified part of unspecified bronchus or lung Is this a current diagnosis for this admission?: YesPlan: Has been seen at [facility] multiple times , but has had no definitive treatments done given the very poor prognosis and very poor serious comorbidities. (5) Septic shock Is this a current diagnosis for this admission?: YesPlan: Patient currently on vasopressin. Is also on antibiotics. (6) Pericardial effusion Plan: Moderately large effusion without signs of tamponade. Cardiology involved. (7) Pulmonary fibrosis Is this a current diagnosis for this admission?: YesPlan: Status quo. (8) Scleroderma Is this a current diagnosis for this admission?: YesPlan: With severe comorbidities and complications of the disease.
--- NOTE | 2016-05-31 20:12 | PDOC PROGRESS REPORT ---
Subjective Progress Note for:: 05/31/16 Subjective:: Patient about the same and has made very little progress. There is no significant change in general condition. Patient remains intubated, sedated, patient however looks comfortable and in acute distress. Patient has been seen by health sanitarian and termite control technician. Patient remains critically ill. She is maintaining blood pressure on vasopressin drip. Patient due to have dialysis Medications reviewed. Physical Exam Vital Signs: Temp Pulse Resp BP Pulse Ox 98.0 F 140 H 0 L 146/116 H 99 05/31/16 17:44 05/31/16 09:27 05/31/16 14:00 05/31/16 17:53 05/31/16 18:00 Intake & Output 05/30/16 05/31/16 06/01/16 06:59 06:59 06:59 Intake Total 335 1691 1772 Output Total 0 0 0 Balance 335 1691 1772 Weight 49.3 kg 52 kg Exam: GENERAL: well-nourished and in no acute distress. Patient is intubated and sedated. Orientation cannot be checked HEAD: Atraumatic, normocephalic. EYES: Pupils equal round and reactive to light, extraocular movements could not be checked, sclera anicteric, conjunctiva are normal. ENT: TMs normal, nares patent, oropharynx clear without exudates. Moist mucous membranes. No oral ulcerations or bleeding gums noted NECK: supple without lymphadenopathy. JVD noted. Trachea is central. No cervical or axillary lymphadenopathy noted. Carotids are 2+ LUNGS: Breath sounds mostly clear to auscultation patient is noted to have bibasal crackles up to midway up, no rub noted CHEST: Palpation of the chest wall shows no significant chest wall tenderness or abnormalities. 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 No guarding, no rebound. No rigidity noted . No masses appreciated. EXTREMITIES: Pedal pulses are 1-2+, no calf tenderness noted, 1+ pedal edema noted. No clubbing or cyanosis. NEUROLOGICAL: The patient cannot participate in the neurological exam but no facial asymmetry noted. Extremities slightly hypotonic PSYCH: This cannot be evaluated. Patient cannot participate. SKIN: No significant ecchymosis, rash, or signs of pruritus noted. MUSCULOSKELETAL EXAM: No significant joint swelling noted. Patient cannot participate in musculoskeletal exam Results Laboratory Results: 05/31/16 05:15 05/31/16 17:32 05/30/16 05/30/16 05/30/16 21:55 21:55 23:45 WBC RBC Hgb Hct MCV MCH MCHC RDW Plt Count Seg Neutrophils % Lymphocytes % Monocytes % Eosinophils % Basophils % Absolute Neutrophils Absolute Lymphocytes Absolute Monocytes Absolute Eosinophils Absolute Basophils Carbonic Acid HCO3/H2CO3 Ratio ABG pH ABG pCO2 ABG pO2 ABG HCO3 ABG O2 Saturation ABG Base Excess FiO2 Sodium 137.8 Potassium 3.5 L Chloride 104 Carbon Dioxide 20 L Anion Gap 14 BUN 44 H Creatinine 2.67 H Est GFR ( Amer) 24 L Est GFR (Non-Af Amer) 20 L Glucose 397 H 423 H* Calcium 6.8 L* Phosphorus Magnesium Total Bilirubin AST ALT Alkaline Phosphatase Total Protein Albumin 2.3 L 05/31/16 05/31/16 05/31/16 05:15 05:15 05:15 WBC 14.3 H RBC 3.75 Hgb 10.7 L Hct 34.5 L MCV 92 MCH 28.6 MCHC 31.1 L RDW 20.9 H Plt Count 235 Seg Neutrophils % 88.3 H Lymphocytes % 5.1 L Monocytes % 4.4 Eosinophils % 1.7 Basophils % 0.5 Absolute Neutrophils 12.7 H Absolute Lymphocytes 0.7 Absolute Monocytes 0.6 Absolute Eosinophils 0.2 Absolute Basophils 0.1 Carbonic Acid 0.99 L HCO3/H2CO3 Ratio 18:1 ABG pH 7.36 ABG pCO2 32.9 L ABG pO2 156.0 H ABG HCO3 18.0 L ABG O2 Saturation 99.0 H ABG Base Excess -6.6 FiO2 50% Sodium 138.7 Potassium 3.6 Chloride 105 Carbon Dioxide 20 L Anion Gap 14 BUN 47 H Creatinine 3.08 H Est GFR ( Amer) 20 L Est GFR (Non-Af Amer) 17 L Glucose 113 H Calcium 7.7 L Phosphorus 4.6 H Magnesium 1.6 Total Bilirubin 1.1 AST 73 H ALT 185 H Alkaline Phosphatase 309 H Total Protein 5.0 L Albumin 2.5 L 05/31/16 05/31/16 05/31/16 10:45 12:00 14:55 WBC RBC Hgb Hct MCV MCH MCHC RDW Plt Count Seg Neutrophils % Lymphocytes % Monocytes % Eosinophils % Basophils % Absolute Neutrophils Absolute Lymphocytes Absolute Monocytes Absolute Eosinophils Absolute Basophils Carbonic Acid 1.01 L 0.85 L HCO3/H2CO3 Ratio 15:1 19:1 ABG pH 7.28 L 7.37 ABG pCO2 33.5 L 28.4 L ABG pO2 147.7 H 207.1 H ABG HCO3 15.5 L 16.2 L ABG O2 Saturation 98.7 H 99.4 H ABG Base Excess -10.1 -7.7 FiO2 55% 55% Sodium Potassium Chloride Carbon Dioxide Anion Gap BUN Creatinine Est GFR ( Amer) Est GFR (Non-Af Amer) Glucose 157 H Calcium Phosphorus Magnesium Total Bilirubin AST ALT Alkaline Phosphatase Total Protein Albumin 05/31/16 17:32 WBC RBC Hgb Hct MCV MCH MCHC RDW Plt Count Seg Neutrophils % Lymphocytes % Monocytes % Eosinophils % Basophils % Absolute Neutrophils Absolute Lymphocytes Absolute Monocytes Absolute Eosinophils Absolute Basophils Carbonic Acid HCO3/H2CO3 Ratio ABG pH ABG pCO2 ABG pO2 ABG HCO3 ABG O2 Saturation ABG Base Excess FiO2 Sodium Potassium Chloride Carbon Dioxide Anion Gap BUN Creatinine Est GFR ( Amer) Est GFR (Non-Af Amer) Glucose 128 H Calcium Phosphorus Magnesium Total Bilirubin AST ALT Alkaline Phosphatase Total Protein Albumin 05/29/16 05/30/16 05/31/16 23:45 05:55 05:15 Creatine Kinase 31 CK-MB (CK-2) 1.81 1.71 Troponin I 0.069 0.094 05/31/16 05:15 Creatine Kinase CK-MB (CK-2) 1.46 Troponin I 0.079 Impressions: Chest/Abdomen CTA 05/29/16 18:00 IMPRESSION: No evidence for pulmonary embolic disease. Extensive chronic appearing changes as noted above. Small right pleural effusion is again identified which appears slightly larger than on the previous study. The previously described rounded masslike density in the right lower lobe is again identified. There is a central somewhat low density area and the possibility of a necrotic neoplasm or developing lung abscess cannot be excluded. Large pericardial effusion is again identified. Other findings as noted above Chest X-Ray 05/31/16 06:00 IMPRESSION: Asymmetric edema or sepsis. No significant change. No pneumothorax. Assessment & Plan - Diagnosis (1) Cardiac arrest Is this a current diagnosis for this admission?: Yes (2) Acute hypoxemic respiratory failure Is this a current diagnosis for this admission?: Yes (3) End stage renal disease Is this a current diagnosis for this admission?: Yes (4) Lung cancer Qualifiers: Laterality: unspecified laterality Lung location: unspecified part of lung Qualified Code(s): C34.90 - Malignant neoplasm of unspecified part of unspecified bronchus or lung Is this a current diagnosis for this admission?: Yes (5) Septic shock Is this a current diagnosis for this admission?: Yes (6) Pulmonary fibrosis Is this a current diagnosis for this admission?: Yes (7) Scleroderma Is this a current diagnosis for this admission?: Yes (8) Cardiomyopathy Qualifiers: Cardiomyopathy type: unspecified Qualified Code(s): I42.9 - Cardiomyopathy, unspecified Is this a current diagnosis for this admission?: Yes (9) Hypotension Qualifiers: Hypotension type: other hypotension type Qualified Code(s): I95.89 - Other hypotension Is this a current diagnosis for this admission?: Yes - Notes Notes: Patient remains critically ill. She is however maintaining adequate blood pressure and also adequate oxygenation. Patient seems to be somewhat fluid overloaded but will avoid any IV diuretics at this point. Today I had a long talk with patient's . Again discussed that she has irreversible process especially pulmonary fibrosis and systemic sclerosis. Hopefully we could reverse the sepsis. Hopefully her cardiac function will improve but overall prognosis remains grave. Again discussed that it's probably best for her to be transferred to tertiary care but he is again declining. Approximately 60 minutes spent, taking care of this patient who is critically ill. Hypotension: Most likely related to poor cardiac output and also sepsis. Overall prognosis is poor. Continue vasopressin - Time Time with patient: Greater than 35 minutes - CODE STATUS was discussed, patient remains full code. Surrogate decision-maker unchanged. Multiple medical problems were addressed.More than 50% of the time spent coordinating care, discussing management plans with involved caregivers. Management plans discussed with involved personnels. Medical decision making was of moderate complexity.
--- NOTE | 2016-05-31 21:26 | PDOC PROGRESS REPORT ---
Subjective Progress Note for:: 05/31/16 Subjective:: Patient was seen by the bedside, yesterday I attempted to transfer patient to [facility], she was actually accepted in transfer but patient's family and his spouse refused for her to be transferred to tertiary care. I had a long discussion with his spouse about the disease process on overall prognosis is poor she continues to remain on vasopressin drip, she was seen by the rn paralegal, black ash burner operator and competency evaluated nurse aide today condition remained critically ill. She has systemic sclerosis complicated with multiple organ failure prognosis is grave in this patient, I explained to the that this would likely be a recurring problem but she remains a full code on this still want to undergo CPR if she develops cardiac arrest. Physical Exam Vital Signs: Temp Pulse Resp BP Pulse Ox 98.0 F 140 H 0 L 146/116 H 99 05/31/16 20:00 05/31/16 09:27 05/31/16 14:00 05/31/16 17:53 05/31/16 18:00 Intake & Output 05/30/16 05/31/16 06/01/16 06:59 06:59 06:59 Intake Total 335 1691 1772 Output Total 0 0 0 Balance 335 1691 1772 Weight 49.3 kg 52 kg Head exam: PRESENT: atraumatic, normocephalic Eye exam: PRESENT: PERRLA Neck exam: PRESENT: full ROM Respiratory exam: PRESENT: other - On auscultation there is equal air entry on both lung gonzalez Cardiovascular exam: PRESENT: RRR, +S1, +S2 GI/Abdominal exam: PRESENT: normal bowel sounds, soft Rectal exam: PRESENT: deferred Results Laboratory Results: 05/31/16 05:15 05/31/16 17:32 05/30/16 05/30/16 05/30/16 21:55 21:55 23:45 WBC RBC Hgb Hct MCV MCH MCHC RDW Plt Count Seg Neutrophils % Lymphocytes % Monocytes % Eosinophils % Basophils % Absolute Neutrophils Absolute Lymphocytes Absolute Monocytes Absolute Eosinophils Absolute Basophils Carbonic Acid HCO3/H2CO3 Ratio ABG pH ABG pCO2 ABG pO2 ABG HCO3 ABG O2 Saturation ABG Base Excess FiO2 Sodium 137.8 Potassium 3.5 L Chloride 104 Carbon Dioxide 20 L Anion Gap 14 BUN 44 H Creatinine 2.67 H Est GFR ( Amer) 24 L Est GFR (Non-Af Amer) 20 L Glucose 397 H 423 H* Calcium 6.8 L* Phosphorus Magnesium Total Bilirubin AST ALT Alkaline Phosphatase Total Protein Albumin 2.3 L 05/31/16 05/31/16 05/31/16 05:15 05:15 05:15 WBC 14.3 H RBC 3.75 Hgb 10.7 L Hct 34.5 L MCV 92 MCH 28.6 MCHC 31.1 L RDW 20.9 H Plt Count 235 Seg Neutrophils % 88.3 H Lymphocytes % 5.1 L Monocytes % 4.4 Eosinophils % 1.7 Basophils % 0.5 Absolute Neutrophils 12.7 H Absolute Lymphocytes 0.7 Absolute Monocytes 0.6 Absolute Eosinophils 0.2 Absolute Basophils 0.1 Carbonic Acid 0.99 L HCO3/H2CO3 Ratio 18:1 ABG pH 7.36 ABG pCO2 32.9 L ABG pO2 156.0 H ABG HCO3 18.0 L ABG O2 Saturation 99.0 H ABG Base Excess -6.6 FiO2 50% Sodium 138.7 Potassium 3.6 Chloride 105 Carbon Dioxide 20 L Anion Gap 14 BUN 47 H Creatinine 3.08 H Est GFR ( Amer) 20 L Est GFR (Non-Af Amer) 17 L Glucose 113 H Calcium 7.7 L Phosphorus 4.6 H Magnesium 1.6 Total Bilirubin 1.1 AST 73 H ALT 185 H Alkaline Phosphatase 309 H Total Protein 5.0 L Albumin 2.5 L 05/31/16 05/31/16 05/31/16 10:45 12:00 14:55 WBC RBC Hgb Hct MCV MCH MCHC RDW Plt Count Seg Neutrophils % Lymphocytes % Monocytes % Eosinophils % Basophils % Absolute Neutrophils Absolute Lymphocytes Absolute Monocytes Absolute Eosinophils Absolute Basophils Carbonic Acid 1.01 L 0.85 L HCO3/H2CO3 Ratio 15:1 19:1 ABG pH 7.28 L 7.37 ABG pCO2 33.5 L 28.4 L ABG pO2 147.7 H 207.1 H ABG HCO3 15.5 L 16.2 L ABG O2 Saturation 98.7 H 99.4 H ABG Base Excess -10.1 -7.7 FiO2 55% 55% Sodium Potassium Chloride Carbon Dioxide Anion Gap BUN Creatinine Est GFR ( Amer) Est GFR (Non-Af Amer) Glucose 157 H Calcium Phosphorus Magnesium Total Bilirubin AST ALT Alkaline Phosphatase Total Protein Albumin 05/31/16 17:32 WBC RBC Hgb Hct MCV MCH MCHC RDW Plt Count Seg Neutrophils % Lymphocytes % Monocytes % Eosinophils % Basophils % Absolute Neutrophils Absolute Lymphocytes Absolute Monocytes Absolute Eosinophils Absolute Basophils Carbonic Acid HCO3/H2CO3 Ratio ABG pH ABG pCO2 ABG pO2 ABG HCO3 ABG O2 Saturation ABG Base Excess FiO2 Sodium Potassium Chloride Carbon Dioxide Anion Gap BUN Creatinine Est GFR ( Amer) Est GFR (Non-Af Amer) Glucose 128 H Calcium Phosphorus Magnesium Total Bilirubin AST ALT Alkaline Phosphatase Total Protein Albumin 05/29/16 05/30/16 05/31/16 23:45 05:55 05:15 Creatine Kinase 31 CK-MB (CK-2) 1.81 1.71 Troponin I 0.069 0.094 05/31/16 05:15 Creatine Kinase CK-MB (CK-2) 1.46 Troponin I 0.079 Impressions: Chest/Abdomen CTA 05/29/16 18:00 IMPRESSION: No evidence for pulmonary embolic disease. Extensive chronic appearing changes as noted above. Small right pleural effusion is again identified which appears slightly larger than on the previous study. The previously described rounded masslike density in the right lower lobe is again identified. There is a central somewhat low density area and the possibility of a necrotic neoplasm or developing lung abscess cannot be excluded. Large pericardial effusion is again identified. Other findings as noted above Chest X-Ray 05/31/16 06:00 IMPRESSION: Asymmetric edema or sepsis. No significant change. No pneumothorax. Assessment & Plan - Diagnosis (1) Acute hypoxemic respiratory failure Is this a current diagnosis for this admission?: Yes (2) Lung cancer Qualifiers: Laterality: unspecified laterality Lung location: unspecified part of lung Qualified Code(s): C34.90 - Malignant neoplasm of unspecified part of unspecified bronchus or lung Is this a current diagnosis for this admission?: Yes (3) Lung abscess Qualifiers: Pulmonary abscess pneumonia presence: with pneumonia Laterality: right Lung location: unspecified part of lung Qualified Code(s): J85.1 - Abscess of lung with pneumonia Is this a current diagnosis for this admission?: Yes (4) End stage renal disease Is this a current diagnosis for this admission?: Yes (5) Cardiac arrest Is this a current diagnosis for this admission?: Yes (6) Cardiogenic shock Is this a current diagnosis for this admission?: Yes (7) Septic shock Is this a current diagnosis for this admission?: YesPlan: Continue IV antibiotic, will initiate tube feed
[2016-06-01] MEDS: MORPHINE SULFATE 10 MG/ML INJ IV PRN ×4 (04:08→22:41)
[2016-06-01] MEDS: IMIPENEM/CILASTATIN SODIUM 500 MG in NORMAL SALINE 100 ML IV SCH ×2 (05:26→17:37)
[2016-06-01] MEDS: NORMAL SALINE 1000 ML 1,000 ML IV PRN ×2 (05:26→23:58)
[2016-06-01] MEDS: HEPARIN SOD (PORCINE) 5,000 UNIT/ML 1 ML SYRINGE SUBCUT SCH ×3 (05:27→22:40)
[2016-06-01 06:16] LABS: ABSOLUTE BASOPHILS # (AUTO) 0.1 10^3/uL (0.0-0.2); ABSOLUTE EOSINOPHILS # (AUTO) 0.2 10^3/uL (0.0-0.6); ABSOLUTE LYMPHOCYTES (AUTO) 1.1 10^3/uL (0.5-4.7); ABSOLUTE MONOCYTES (AUTO) 0.4 10^3/uL (0.1-1.4); ABSOLUTE NEUT (AUTO) 10.4 10^3/uL (1.7-8.2); ARTERIAL BLOOD BASE EXCESS -6.8 mmol/L; ARTERIAL BLOOD O2 SATURATION 99.6 % (94-98); EOSINOPHILS % (AUTO) 1.3 % (0-6); HEMATOCRIT 31.6 % (36.0-47.0); HEMOGLOBIN 9.9 g/dL (12.0-15.5); HGB HCT DIFFERENCE -1.9; LYMPHOCYTES % (AUTO) 8.8 % (13-45); MEAN CORPUSCULAR HEMOGLOBIN 28.7 pg (27.0-33.4); MEAN CORPUSCULAR HGB CONC 31.4 g/dL (32.0-36.0); MEAN CORPUSCULAR VOLUME 91 fl (80-97); MONOCYTES % (AUTO) 3.4 % (3-13); RED BLOOD COUNT 3.46 10^6/uL (3.72-5.28); SEGMENTED NEUTROPHILS % (AUTO) 85.5 % (42-78); WHITE BLOOD COUNT 12.2 10^3/uL (4.0-10.5)
[2016-06-01 06:31] LABS: ALANINE AMINOTRANSFERASE 251 U/L (9-52); ALBUMIN 2.3 g/dL (3.5-5.0); ALKALINE PHOSPHATASE 290 U/L (38-126); ANION GAP 14 (5-19); ASPARTATE AMINO TRANSFERASE 105 U/L (14-36); BILIRUBIN,DIRECT 0.9 mg/dL (0.0-0.4); BILIRUBIN,TOTAL 1.1 mg/dL (0.2-1.3); BLOOD UREA NITROGEN 32 mg/dL (7-20); CALCIUM 8.2 mg/dL (8.4-10.2); CARBON DIOXIDE 17 mmol/L (22-30); CHLORIDE 105 mmol/L (98-107); CREATININE RESULT 2.73 mg/dL (0.52-1.25); GLUCOSE 229 mg/dL (75-110); MAGNESIUM 1.4 mg/dL (1.6-2.3); PHOSPHORUS 4.5 mg/dL (2.5-4.5); POTASSIUM 3.5 mmol/L (3.6-5.0); SODIUM 136.4 mmol/L (137-145); TOTAL PROTEIN 4.8 g/dL (6.3-8.2)
[2016-06-01] MEDS: PROPOFOL 100 ML IV PRN ×2 (07:48→19:42)
[2016-06-01] MEDS: DEXTROSE 5%-WATER 250 ML with VASOPRESSIN 100 UNIT IV PRN ×2 (07:51)
[2016-06-01] MEDS: LEVOFLOXACIN 500 MG/D5W RTU 500 MG/100 ML RTUPB IV SCH (07:52)
[2016-06-01] MEDS ORDERED: MAGNESIUM SULFATE/D5W 1 GM/100 ML RTUPB IV ONE (10:30)
[2016-06-01] MEDS: POTASSIUM CHLORIDE 20 MEQ/50 ML RTU IV SCH ×2 (10:50→12:06)
[2016-06-01] MEDS: DEXTROSE 10%-WATER 1,000 ML IV PRN (10:51)
--- NOTE | 2016-06-01 11:53 | PDOC PROGRESS REPORT ---
Subjective Progress Note for:: 06/01/16 Subjective:: Intubated and sedated Physical Exam Vital Signs: Temp Pulse Resp BP Pulse Ox 98.2 F 91 25 H 130/100 H 96 06/01/16 08:00 06/01/16 08:41 06/01/16 08:00 06/01/16 08:23 06/01/16 08:30 Intake & Output 05/31/16 06/01/16 06/02/16 06:59 06:59 06:59 Intake Total 1691 4194 30 Output Total 0 319 0 Balance 1691 3875 30 Weight 52 kg 55.5 kg General appearance: PRESENT: no acute distress, disheveled, other - Cachectic Head exam: PRESENT: atraumatic, normocephalic Eye exam: PRESENT: conjunctiva pale Mouth exam: PRESENT: dry mucosa, neck supple, other - ET tube in place Neck exam: ABSENT: carotid bruit, JVD, lymphadenopathy, thyromegaly Respiratory exam: PRESENT: crackles, decreased breath sounds, prolonged expiratory phas, rhonchi, symmetrical, unlabored Cardiovascular exam: PRESENT: RRR, +S1, +S2 Pulses: PRESENT: normal radial pulses GI/Abdominal exam: PRESENT: normal bowel sounds, soft. ABSENT: distended, guarding, mass, organolmegaly, rebound, tenderness Rectal exam: PRESENT: deferred Gentrourinary exam: PRESENT: indwelling catheter Musculoskeletal exam: PRESENT: normal inspection Skin exam: PRESENT: dry Results Laboratory Results: 06/01/16 06:00 06/01/16 06:00 05/31/16 05/31/16 05/31/16 10:45 12:00 14:55 WBC RBC Hgb Hct MCV MCH MCHC RDW Plt Count Seg Neutrophils % Lymphocytes % Monocytes % Eosinophils % Basophils % Absolute Neutrophils Absolute Lymphocytes Absolute Monocytes Absolute Eosinophils Absolute Basophils Carbonic Acid 1.01 L 0.85 L HCO3/H2CO3 Ratio 15:1 19:1 ABG pH 7.28 L 7.37 ABG pCO2 33.5 L 28.4 L ABG pO2 147.7 H 207.1 H ABG HCO3 15.5 L 16.2 L ABG O2 Saturation 98.7 H 99.4 H ABG Base Excess -10.1 -7.7 FiO2 55% 55% Sodium Potassium Chloride Carbon Dioxide Anion Gap BUN Creatinine Est GFR ( Amer) Est GFR (Non-Af Amer) Glucose 157 H Lactic Acid Calcium Phosphorus Magnesium Total Bilirubin AST ALT Alkaline Phosphatase Total Protein Albumin 05/31/16 05/31/16 06/01/16 17:32 23:35 06:00 WBC RBC Hgb Hct MCV MCH MCHC RDW Plt Count Seg Neutrophils % Lymphocytes % Monocytes % Eosinophils % Basophils % Absolute Neutrophils Absolute Lymphocytes Absolute Monocytes Absolute Eosinophils Absolute Basophils Carbonic Acid 0.81 L HCO3/H2CO3 Ratio 20:1 ABG pH 7.41 ABG pCO2 26.8 L ABG pO2 244.1 H ABG HCO3 16.6 L ABG O2 Saturation 99.6 H ABG Base Excess -6.8 FiO2 60% Sodium Potassium Chloride Carbon Dioxide Anion Gap BUN Creatinine Est GFR ( Amer) Est GFR (Non-Af Amer) Glucose 128 H 178 H Lactic Acid Calcium Phosphorus Magnesium Total Bilirubin AST ALT Alkaline Phosphatase Total Protein Albumin 06/01/16 06/01/16 06/01/16 06:00 06:00 06:00 WBC 12.2 H RBC 3.46 L Hgb 9.9 L Hct 31.6 L MCV 91 MCH 28.7 MCHC 31.4 L RDW 21.0 H Plt Count 181 Seg Neutrophils % 85.5 H Lymphocytes % 8.8 L Monocytes % 3.4 Eosinophils % 1.3 Basophils % 1.0 Absolute Neutrophils 10.4 H Absolute Lymphocytes 1.1 Absolute Monocytes 0.4 Absolute Eosinophils 0.2 Absolute Basophils 0.1 Carbonic Acid HCO3/H2CO3 Ratio ABG pH ABG pCO2 ABG pO2 ABG HCO3 ABG O2 Saturation ABG Base Excess FiO2 Sodium 136.4 L Potassium 3.5 L Chloride 105 Carbon Dioxide 17 L Anion Gap 14 BUN 32 H Creatinine 2.73 H Est GFR ( Amer) 23 L Est GFR (Non-Af Amer) 19 L Glucose 229 H Lactic Acid 1.4 Calcium 8.2 L Phosphorus 4.5 Magnesium 1.4 L Total Bilirubin 1.1 AST 105 H ALT 251 H Alkaline Phosphatase 290 H Total Protein 4.8 L Albumin 2.3 L 05/29/16 05/30/16 05/31/16 23:45 05:55 05:15 Creatine Kinase 31 CK-MB (CK-2) 1.81 1.71 Troponin I 0.069 0.094 05/31/16 05:15 Creatine Kinase CK-MB (CK-2) 1.46 Troponin I 0.079 Impressions: Chest/Abdomen CTA 05/29/16 18:00 IMPRESSION: No evidence for pulmonary embolic disease. Extensive chronic appearing changes as noted above. Small right pleural effusion is again identified which appears slightly larger than on the previous study. The previously described rounded masslike density in the right lower lobe is again identified. There is a central somewhat low density area and the possibility of a necrotic neoplasm or developing lung abscess cannot be excluded. Large pericardial effusion is again identified. Other findings as noted above Chest X-Ray 06/01/16 06:00 IMPRESSION: Persistent consolidation with air bronchograms in the medial right and left lung bases. Small bilateral pleural effusions Tubes and lines in good positioning Assessment & Plan - Diagnosis (1) Acute hypoxemic respiratory failure Is this a current diagnosis for this admission?: YesPlan: Oxygenating well with adequate ventilation compensating for metabolic acidosis (2) End stage renal disease Is this a current diagnosis for this admission?: YesPlan: Improving creatinine and BUN (3) Lung abscess Qualifiers: Pulmonary abscess pneumonia presence: with pneumonia Laterality: right Lung location: unspecified part of lung Qualified Code(s): J85.1 - Abscess of lung with pneumonia Is this a current diagnosis for this admission?: Yes (4) Lung cancer Qualifiers: Laterality: unspecified laterality Lung location: unspecified part of lung Qualified Code(s): C34.90 - Malignant neoplasm of unspecified part of unspecified bronchus or lung Is this a current diagnosis for this admission?: Yes - Time Critical Time spent with patient: 35 or more minutes - 40 minutes
--- NOTE | 2016-06-01 19:29 | PDOC PROGRESS REPORT ---
Subjective Progress Note for:: 06/01/16 Subjective:: Patient about the same and has made some progress. Patient remains sedated and intubated. She is actually off vasopressors. She did undergo dialysis. Patient remains intubated, sedated, patient however looks comfortable and in acute distress. Patient has been seen by children's court magistrate and world language teacher. Patient remains critically ill. Chest x-ray shows bilateral pneumonia, bilateral pleural effusion. Pattern on blood pressure through arterial line shows some alternans indicative of LV systolic dysfunction. Medications reviewed. Physical Exam Vital Signs: Temp Pulse Resp BP Pulse Ox 97.9 F 95 25 H 142/91 H 100 06/01/16 16:00 06/01/16 14:00 06/01/16 14:00 06/01/16 18:39 06/01/16 18:38 Intake & Output 05/31/16 06/01/16 06/02/16 06:59 06:59 06:59 Intake Total 1691 4194 2586 Output Total 0 319 0 Balance 1691 3875 2586 Weight 52 kg 55.5 kg Exam: GENERAL: well-nourished and in no acute distress. Patient is intubated and sedated. Orientation cannot be checked HEAD: Atraumatic, normocephalic. EYES: Pupils equal round and reactive to light, extraocular movements could not be checked, sclera anicteric, conjunctiva are normal. ENT: TMs normal, nares patent, oropharynx clear without exudates. Moist mucous membranes. No oral ulcerations or bleeding gums noted NECK: supple without lymphadenopathy or JVD. Trachea is central. No cervical or axillary lymphadenopathy noted. Carotids are 2+ LUNGS: Breath sounds mostly clear to auscultation patient is noted to have bibasal crackles up to 1/3 Way up noted CHEST: Palpation of the chest wall shows no significant chest wall tenderness or abnormalities. HEART: [place] E/M ENGINEER, No PSH, 2/6 JACQUES aortic area, 1/6 brweer systolic murmur mitral area , no rubs or gallops. ABDOMEN: Soft, no significant tenderness appreciated, normoactive bowel sounds. No guarding, no rebound. No rigidity noted . No masses appreciated. EXTREMITIES: Pedal pulses are 1-2+, no calf tenderness noted, 1+ pedal edema noted. No clubbing or cyanosis. NEUROLOGICAL: The patient cannot participate in the neurological exam but no facial asymmetry noted. Extremities slightly hypotonic PSYCH: This cannot be evaluated. Patient cannot participate. SKIN: No significant ecchymosis, rash, or signs of pruritus noted. Changes of scleroderma noted. MUSCULOSKELETAL EXAM: No significant joint swelling noted. Patient cannot participate in musculoskeletal exam Results Laboratory Results: 06/01/16 06:00 06/01/16 06:00 05/30/16 05/31/16 06/01/16 05:55 23:35 06:00 WBC Cancelled RBC Cancelled Hgb Cancelled Hct Cancelled MCV Cancelled MCH Cancelled MCHC Cancelled RDW Cancelled Plt Count Cancelled Seg Neutrophils % Cancelled Lymphocytes % Cancelled Monocytes % Cancelled Eosinophils % Cancelled Basophils % Cancelled Absolute Neutrophils Cancelled Absolute Lymphocytes Cancelled Absolute Monocytes Cancelled Absolute Eosinophils Cancelled Absolute Basophils Cancelled Carbonic Acid 0.81 L HCO3/H2CO3 Ratio 20:1 ABG pH 7.41 ABG pCO2 26.8 L ABG pO2 244.1 H ABG HCO3 16.6 L ABG O2 Saturation 99.6 H ABG Base Excess -6.8 FiO2 60% Sodium Potassium Chloride Carbon Dioxide Anion Gap BUN Creatinine Est GFR ( Amer) Est GFR (Non-Af Amer) Glucose 178 H Lactic Acid Calcium Phosphorus Magnesium Total Bilirubin AST ALT Alkaline Phosphatase Total Protein Albumin 06/01/16 06/01/16 06/01/16 06:00 06:00 06:00 WBC 12.2 H RBC 3.46 L Hgb 9.9 L Hct 31.6 L MCV 91 MCH 28.7 MCHC 31.4 L RDW 21.0 H Plt Count 181 Seg Neutrophils % 85.5 H Lymphocytes % 8.8 L Monocytes % 3.4 Eosinophils % 1.3 Basophils % 1.0 Absolute Neutrophils 10.4 H Absolute Lymphocytes 1.1 Absolute Monocytes 0.4 Absolute Eosinophils 0.2 Absolute Basophils 0.1 Carbonic Acid HCO3/H2CO3 Ratio ABG pH ABG pCO2 ABG pO2 ABG HCO3 ABG O2 Saturation ABG Base Excess FiO2 Sodium 136.4 L Potassium 3.5 L Chloride 105 Carbon Dioxide 17 L Anion Gap 14 BUN 32 H Creatinine 2.73 H Est GFR ( Amer) 23 L Est GFR (Non-Af Amer) 19 L Glucose 229 H Lactic Acid 1.4 Calcium 8.2 L Phosphorus 4.5 Magnesium 1.4 L Total Bilirubin 1.1 AST 105 H ALT 251 H Alkaline Phosphatase 290 H Total Protein 4.8 L Albumin 2.3 L 05/29/16 05/30/16 05/31/16 23:45 05:55 05:15 Creatine Kinase 31 CK-MB (CK-2) 1.81 1.71 Troponin I 0.069 0.094 05/31/16 05:15 Creatine Kinase CK-MB (CK-2) 1.46 Troponin I 0.079 Impressions: Chest/Abdomen CTA 05/29/16 18:00 IMPRESSION: No evidence for pulmonary embolic disease. Extensive chronic appearing changes as noted above. Small right pleural effusion is again identified which appears slightly larger than on the previous study. The previously described rounded masslike density in the right lower lobe is again identified. There is a central somewhat low density area and the possibility of a necrotic neoplasm or developing lung abscess cannot be excluded. Large pericardial effusion is again identified. Other findings as noted above Chest X-Ray 06/01/16 06:00 IMPRESSION: Persistent consolidation with air bronchograms in the medial right and left lung bases. Small bilateral pleural effusions Tubes and lines in good positioning Assessment & Plan - Diagnosis (1) Cardiac arrest Is this a current diagnosis for this admission?: Yes (2) Acute hypoxemic respiratory failure Is this a current diagnosis for this admission?: Yes (3) End stage renal disease Is this a current diagnosis for this admission?: Yes (4) Lung cancer Qualifiers: Laterality: unspecified laterality Lung location: unspecified part of lung Qualified Code(s): C34.90 - Malignant neoplasm of unspecified part of unspecified bronchus or lung Is this a current diagnosis for this admission?: Yes (5) Septic shock Is this a current diagnosis for this admission?: Yes (6) Pulmonary fibrosis Is this a current diagnosis for this admission?: Yes (7) Scleroderma Is this a current diagnosis for this admission?: Yes (8) Cardiomyopathy Qualifiers: Cardiomyopathy type: unspecified Qualified Code(s): I42.9 - Cardiomyopathy, unspecified Is this a current diagnosis for this admission?: Yes (9) Hypotension Qualifiers: Hypotension type: other hypotension type Qualified Code(s): I95.89 - Other hypotension Is this a current diagnosis for this admission?: Yes - Notes Notes: Patient remains critically ill. She is severely maintaining her blood pressure. Arterial line shows some evidence of blood pressure alternance indicative of severe LV systolic dysfunction. Patient remains hypoxic and being intubated and ventilated. She has advanced scleroderma, pulmonary fibrosis, cardiomyopathy, end-stage renal disease, lung cancer. Given all these comorbidities, have repeatedly explained to the patient's family and that prognosis is very grave and anything we might do may not help her. Again explained that transfer to tertiary care could provide more opinions and more support if needed if especially if they want to go with full code and if they want everything to be done. Informed that there are limitation at this hospital as this is not to [facility]. - Time Time with patient: Greater than 35 minutes - CODE STATUS was discussed, patient remains full code. Surrogate decision-maker unchanged. Multiple medical problems were addressed.More than 50% of the time spent coordinating care, discussing management plans with involved caregivers. Management plans discussed with involved personnels. Medical decision making was of high complexity. Approximately 35-40 minutes spent in talking to the , family members and other medical personnel involved.
[2016-06-02] MEDS: MORPHINE SULFATE 10 MG/ML INJ IV PRN ×2 (03:10→20:41)
[2016-06-02] MEDS: IMIPENEM/CILASTATIN SODIUM 500 MG in NORMAL SALINE 100 ML IV SCH (05:10)
[2016-06-02] MEDS: HEPARIN SOD (PORCINE) 5,000 UNIT/ML 1 ML SYRINGE SUBCUT SCH ×3 (05:11→22:12)
[2016-06-02] MEDS: DEXTROSE 10%-WATER 1,000 ML IV PRN (05:12)
[2016-06-02 05:59] LABS: ARTERIAL BLOOD BASE EXCESS -7.1 mmol/L; ARTERIAL BLOOD O2 SATURATION 96.2 % (94-98)
[2016-06-02] MEDS: PROPOFOL 100 ML IV PRN ×2 (06:45→16:02)
[2016-06-02] MEDS: NORMAL SALINE 1000 ML 1,000 ML IV PRN (07:21)
[2016-06-02 09:12] LABS: ANION GAP 13 (5-19); BLOOD UREA NITROGEN 32 mg/dL (7-20); CALCIUM 7.8 mg/dL (8.4-10.2); CARBON DIOXIDE 17 mmol/L (22-30); CHLORIDE 105 mmol/L (98-107); CREATININE RESULT 2.74 mg/dL (0.52-1.25); GLUCOSE 130 mg/dL (75-110); POTASSIUM 3.7 mmol/L (3.6-5.0); SODIUM 134.6 mmol/L (137-145)
[2016-06-02] MEDS ORDERED: HEPARIN SOD (PORCINE) 1,000 UNIT/ML 10 ML VIAL IV PRN (09:35)
[2016-06-02] MEDS: DEXTROSE 50%-WATER SYRINGE 25 GM/50 ML DOSE IV PRN (12:26)
[2016-06-02 12:34] LABS: HEMATOCRIT 34.5 % (36.0-47.0); HEMOGLOBIN 11.1 g/dL (12.0-15.5); HGB HCT DIFFERENCE -1.2; MEAN CORPUSCULAR HEMOGLOBIN 29.2 pg (27.0-33.4); MEAN CORPUSCULAR HGB CONC 32.3 g/dL (32.0-36.0); MEAN CORPUSCULAR VOLUME 90 fl (80-97); RED BLOOD COUNT 3.82 10^6/uL (3.72-5.28); RED CELL DISTRIBUTION WIDTH 20.6 % (11.5-14.0); WHITE BLOOD COUNT 10.8 10^3/uL (4.0-10.5)
[2016-06-02 13:06] LABS: BAND NEUTROPHILS % (MANUAL) 2 % (3-5); BASOPHILS % (MANUAL) 0 % (0-2); EOSINOPHILS % (MANUAL) 2 % (0-6); LYMPHOCYTES % (MANUAL) 6 % (13-45); TOTAL CELLS COUNTED 100
[2016-06-02 13:07] LABS: ANISOCYTOSIS 2+; OVALOCYTES 2+; POIKILOCYTOSIS 2+; POLYCHROMASIA 1+; SCHISTOCYTES SLIGHT; TEAR DROP CELLS SLIGHT; TOXIC GRANULATION 1+; TOXIC VACUOLATION PRESENT
--- NOTE | 2016-06-02 14:36 | PDOC PROGRESS REPORT ---
Subjective Progress Note for:: 06/02/16 Subjective:: Intubated and sedated Physical Exam Vital Signs: Temp Pulse Resp BP Pulse Ox 97.8 F 121 H 25 H 135/121 H 100 06/02/16 12:00 06/02/16 10:00 06/01/16 14:00 06/02/16 10:54 06/02/16 12:00 Intake & Output 06/01/16 06/02/16 06/03/16 06:59 06:59 06:59 Intake Total 4194 5046 Output Total 319 0 0 Balance 3875 5046 0 Weight 55.5 kg 59.6 kg General appearance: PRESENT: no acute distress, disheveled, thin Head exam: PRESENT: atraumatic, normocephalic Respiratory exam: PRESENT: decreased breath sounds, prolonged expiratory phas, rales, rhonchi, unlabored Cardiovascular exam: PRESENT: RRR, +S1, +S2 Pulses: PRESENT: normal radial pulses GI/Abdominal exam: PRESENT: normal bowel sounds, soft. ABSENT: distended, guarding, mass, organolmegaly, rebound, tenderness Rectal exam: PRESENT: deferred Musculoskeletal exam: PRESENT: normal inspection Skin exam: PRESENT: dry, warm Results Laboratory Results: 06/02/16 12:13 06/02/16 08:30 06/02/16 06/02/16 06/02/16 05:35 05:35 08:30 WBC RBC Hgb Hct MCV MCH MCHC RDW Plt Count Seg Neutrophils % Lymphocytes % Monocytes % Eosinophils % Basophils % Absolute Neutrophils Absolute Lymphocytes Absolute Monocytes Absolute Eosinophils Absolute Basophils Carbonic Acid 0.80 L HCO3/H2CO3 Ratio 20:1 ABG pH 7.40 ABG pCO2 26.6 L ABG pO2 81.3 ABG HCO3 16.3 L ABG O2 Saturation 96.2 ABG Base Excess -7.1 FiO2 30% Sodium 134.6 L Potassium 3.7 Chloride 105 Carbon Dioxide 17 L Anion Gap 13 BUN 32 H Creatinine 2.74 H Est GFR ( Amer) 23 L Est GFR (Non-Af Amer) 19 L Glucose 130 H Lactic Acid Calcium 7.8 L Triglycerides 77 06/02/16 06/02/16 12:13 12:13 WBC 10.8 H RBC 3.82 Hgb 11.1 L Hct 34.5 L MCV 90 MCH 29.2 MCHC 32.3 RDW 20.6 H Plt Count 182 Seg Neutrophils % Not Reportable Lymphocytes % Not Reportable Monocytes % Not Reportable Eosinophils % Not Reportable Basophils % Not Reportable Absolute Neutrophils Not Reportable Absolute Lymphocytes Not Reportable Absolute Monocytes Not Reportable Absolute Eosinophils Not Reportable Absolute Basophils Not Reportable Carbonic Acid HCO3/H2CO3 Ratio ABG pH ABG pCO2 ABG pO2 ABG HCO3 ABG O2 Saturation ABG Base Excess FiO2 Sodium Potassium Chloride Carbon Dioxide Anion Gap BUN Creatinine Est GFR ( Amer) Est GFR (Non-Af Amer) Glucose Lactic Acid 1.1 Calcium Triglycerides 05/29/16 05/30/16 05/31/16 23:45 05:55 05:15 Creatine Kinase 31 CK-MB (CK-2) 1.81 1.71 Troponin I 0.069 0.094 05/31/16 05:15 Creatine Kinase CK-MB (CK-2) 1.46 Troponin I 0.079 Impressions: Chest/Abdomen CTA 05/29/16 18:00 IMPRESSION: No evidence for pulmonary embolic disease. Extensive chronic appearing changes as noted above. Small right pleural effusion is again identified which appears slightly larger than on the previous study. The previously described rounded masslike density in the right lower lobe is again identified. There is a central somewhat low density area and the possibility of a necrotic neoplasm or developing lung abscess cannot be excluded. Large pericardial effusion is again identified. Other findings as noted above Chest X-Ray 06/01/16 06:00 IMPRESSION: Persistent consolidation with air bronchograms in the medial right and left lung bases. Small bilateral pleural effusions Tubes and lines in good positioning Assessment & Plan - Diagnosis (1) Acute hypoxemic respiratory failure Is this a current diagnosis for this admission?: YesPlan: Oxygenating well with adequate ventilation compensating for metabolic acidosis (2) End stage renal disease Is this a current diagnosis for this admission?: YesPlan: Improving creatinine and BUN (3) Lung abscess Qualifiers: Pulmonary abscess pneumonia presence: with pneumonia Laterality: right Lung location: unspecified part of lung Qualified Code(s): J85.1 - Abscess of lung with pneumonia Is this a current diagnosis for this admission?: Yes (4) Lung cancer Qualifiers: Laterality: unspecified laterality Lung location: unspecified part of lung Qualified Code(s): C34.90 - Malignant neoplasm of unspecified part of unspecified bronchus or lung Is this a current diagnosis for this admission?: YesPlan: ? cell type;?locatio(s) try to get prior records - Time Critical Time spent with patient: 35 or more minutes
--- NOTE | 2016-06-02 17:18 | PDOC PROGRESS REPORT ---
Subjective Progress Note for:: 06/08/16 Subjective:: She was seen by the bedside, had a long discussion with patient spouse, patient continues to require mechanical ventilation, she is still on IV pressors Physical Exam Vital Signs: Temp Pulse Resp BP Pulse Ox 97.9 F 95 25 H 142/91 H 100 06/01/16 16:00 06/01/16 14:00 06/01/16 14:00 06/01/16 18:39 06/01/16 18:38 Intake & Output 05/31/16 06/01/16 06/02/16 06:59 06:59 06:59 Intake Total 1691 4194 2586 Output Total 0 319 0 Balance 1691 3875 2586 Weight 52 kg 55.5 kg General appearance: PRESENT: other - Patient is sedated on mechanical ventilation Eye exam: PRESENT: PERRLA Respiratory exam: PRESENT: other - Auscultation revealed equal air entry bilaterally Cardiovascular exam: PRESENT: +S1, +S2 GI/Abdominal exam: PRESENT: soft Neurological exam: PRESENT: other - Sedated Results Laboratory Results: 06/01/16 06:00 06/01/16 06:00 05/30/16 05/31/16 06/01/16 05:55 23:35 06:00 WBC Cancelled RBC Cancelled Hgb Cancelled Hct Cancelled MCV Cancelled MCH Cancelled MCHC Cancelled RDW Cancelled Plt Count Cancelled Seg Neutrophils % Cancelled Lymphocytes % Cancelled Monocytes % Cancelled Eosinophils % Cancelled Basophils % Cancelled Absolute Neutrophils Cancelled Absolute Lymphocytes Cancelled Absolute Monocytes Cancelled Absolute Eosinophils Cancelled Absolute Basophils Cancelled Carbonic Acid 0.81 L HCO3/H2CO3 Ratio 20:1 ABG pH 7.41 ABG pCO2 26.8 L ABG pO2 244.1 H ABG HCO3 16.6 L ABG O2 Saturation 99.6 H ABG Base Excess -6.8 FiO2 60% Sodium Potassium Chloride Carbon Dioxide Anion Gap BUN Creatinine Est GFR ( Amer) Est GFR (Non-Af Amer) Glucose 178 H Lactic Acid Calcium Phosphorus Magnesium Total Bilirubin AST ALT Alkaline Phosphatase Total Protein Albumin 06/01/16 06/01/16 06/01/16 06:00 06:00 06:00 WBC 12.2 H RBC 3.46 L Hgb 9.9 L Hct 31.6 L MCV 91 MCH 28.7 MCHC 31.4 L RDW 21.0 H Plt Count 181 Seg Neutrophils % 85.5 H Lymphocytes % 8.8 L Monocytes % 3.4 Eosinophils % 1.3 Basophils % 1.0 Absolute Neutrophils 10.4 H Absolute Lymphocytes 1.1 Absolute Monocytes 0.4 Absolute Eosinophils 0.2 Absolute Basophils 0.1 Carbonic Acid HCO3/H2CO3 Ratio ABG pH ABG pCO2 ABG pO2 ABG HCO3 ABG O2 Saturation ABG Base Excess FiO2 Sodium 136.4 L Potassium 3.5 L Chloride 105 Carbon Dioxide 17 L Anion Gap 14 BUN 32 H Creatinine 2.73 H Est GFR ( Amer) 23 L Est GFR (Non-Af Amer) 19 L Glucose 229 H Lactic Acid 1.4 Calcium 8.2 L Phosphorus 4.5 Magnesium 1.4 L Total Bilirubin 1.1 AST 105 H ALT 251 H Alkaline Phosphatase 290 H Total Protein 4.8 L Albumin 2.3 L 05/29/16 05/30/16 05/31/16 23:45 05:55 05:15 Creatine Kinase 31 CK-MB (CK-2) 1.81 1.71 Troponin I 0.069 0.094 05/31/16 05:15 Creatine Kinase CK-MB (CK-2) 1.46 Troponin I 0.079 Impressions: Chest/Abdomen CTA 05/29/16 18:00 IMPRESSION: No evidence for pulmonary embolic disease. Extensive chronic appearing changes as noted above. Small right pleural effusion is again identified which appears slightly larger than on the previous study. The previously described rounded masslike density in the right lower lobe is again identified. There is a central somewhat low density area and the possibility of a necrotic neoplasm or developing lung abscess cannot be excluded. Large pericardial effusion is again identified. Other findings as noted above Chest X-Ray 06/01/16 06:00 IMPRESSION: Persistent consolidation with air bronchograms in the medial right and left lung bases. Small bilateral pleural effusions Tubes and lines in good positioning Assessment & Plan - Diagnosis (1) Acute hypoxemic respiratory failure Is this a current diagnosis for this admission?: YesPlan: She will continue mechanical ventilation (2) Lung cancer Qualifiers: Laterality: unspecified laterality Lung location: unspecified part of lung Qualified Code(s): C34.90 - Malignant neoplasm of unspecified part of unspecified bronchus or lung Is this a current diagnosis for this admission?: Yes (3) Lung abscess Qualifiers: Pulmonary abscess pneumonia presence: with pneumonia Laterality: right Lung location: unspecified part of lung Qualified Code(s): J85.1 - Abscess of lung with pneumonia Is this a current diagnosis for this admission?: Yes (4) End stage renal disease Is this a current diagnosis for this admission?: Yes (5) Cardiac arrest Is this a current diagnosis for this admission?: Yes (6) Cardiogenic shock Is this a current diagnosis for this admission?: Yes (7) Septic shock Is this a current diagnosis for this admission?: Yes
--- NOTE | 2016-06-02 17:20 | PDOC PROGRESS REPORT ---
Subjective Progress Note for:: 06/02/16 Subjective:: Patient on mechanical ventilation not presently requiring IV pressors overall prognosis still remains poor Physical Exam Vital Signs: Temp Pulse Resp BP Pulse Ox 98.3 F 131 H 25 H 152/91 H 100 06/02/16 16:00 06/02/16 16:00 06/02/16 16:00 06/02/16 16:00 06/02/16 17:06 Intake & Output 06/01/16 06/02/16 06/03/16 06:59 06:59 06:59 Intake Total 4194 5046 Output Total 319 0 1999 Balance 3875 5046 -1999 Weight 55.5 kg 59.6 kg Eye exam: PRESENT: PERRLA Respiratory exam: PRESENT: decreased breath sounds Cardiovascular exam: PRESENT: +S1, +S2 GI/Abdominal exam: PRESENT: soft Neurological exam: PRESENT: alert Results Laboratory Results: 06/02/16 12:13 06/02/16 08:30 06/02/16 06/02/16 06/02/16 05:35 05:35 08:30 WBC RBC Hgb Hct MCV MCH MCHC RDW Plt Count Seg Neutrophils % Lymphocytes % Monocytes % Eosinophils % Basophils % Absolute Neutrophils Absolute Lymphocytes Absolute Monocytes Absolute Eosinophils Absolute Basophils Carbonic Acid 0.80 L HCO3/H2CO3 Ratio 20:1 ABG pH 7.40 ABG pCO2 26.6 L ABG pO2 81.3 ABG HCO3 16.3 L ABG O2 Saturation 96.2 ABG Base Excess -7.1 FiO2 30% Sodium 134.6 L Potassium 3.7 Chloride 105 Carbon Dioxide 17 L Anion Gap 13 BUN 32 H Creatinine 2.74 H Est GFR ( Amer) 23 L Est GFR (Non-Af Amer) 19 L Glucose 130 H Lactic Acid Calcium 7.8 L Triglycerides 77 06/02/16 06/02/16 12:13 12:13 WBC 10.8 H RBC 3.82 Hgb 11.1 L Hct 34.5 L MCV 90 MCH 29.2 MCHC 32.3 RDW 20.6 H Plt Count 182 Seg Neutrophils % Not Reportable Lymphocytes % Not Reportable Monocytes % Not Reportable Eosinophils % Not Reportable Basophils % Not Reportable Absolute Neutrophils Not Reportable Absolute Lymphocytes Not Reportable Absolute Monocytes Not Reportable Absolute Eosinophils Not Reportable Absolute Basophils Not Reportable Carbonic Acid HCO3/H2CO3 Ratio ABG pH ABG pCO2 ABG pO2 ABG HCO3 ABG O2 Saturation ABG Base Excess FiO2 Sodium Potassium Chloride Carbon Dioxide Anion Gap BUN Creatinine Est GFR ( Amer) Est GFR (Non-Af Amer) Glucose Lactic Acid 1.1 Calcium Triglycerides 05/29/16 05/30/16 05/31/16 23:45 05:55 05:15 Creatine Kinase 31 CK-MB (CK-2) 1.81 1.71 Troponin I 0.069 0.094 05/31/16 05:15 Creatine Kinase CK-MB (CK-2) 1.46 Troponin I 0.079 Impressions: Chest/Abdomen CTA 05/29/16 18:00 IMPRESSION: No evidence for pulmonary embolic disease. Extensive chronic appearing changes as noted above. Small right pleural effusion is again identified which appears slightly larger than on the previous study. The previously described rounded masslike density in the right lower lobe is again identified. There is a central somewhat low density area and the possibility of a necrotic neoplasm or developing lung abscess cannot be excluded. Large pericardial effusion is again identified. Other findings as noted above Chest X-Ray 06/01/16 06:00 IMPRESSION: Persistent consolidation with air bronchograms in the medial right and left lung bases. Small bilateral pleural effusions Tubes and lines in good positioning Assessment & Plan - Diagnosis (1) Acute hypoxemic respiratory failure Is this a current diagnosis for this admission?: Yes (2) Lung cancer Qualifiers: Laterality: unspecified laterality Lung location: unspecified part of lung Qualified Code(s): C34.90 - Malignant neoplasm of unspecified part of unspecified bronchus or lung Is this a current diagnosis for this admission?: Yes (3) Lung abscess Qualifiers: Pulmonary abscess pneumonia presence: with pneumonia Laterality: right Lung location: unspecified part of lung Qualified Code(s): J85.1 - Abscess of lung with pneumonia Is this a current diagnosis for this admission?: Yes (4) End stage renal disease Is this a current diagnosis for this admission?: Yes (5) Cardiac arrest Is this a current diagnosis for this admission?: Yes (6) Cardiogenic shock Is this a current diagnosis for this admission?: Yes (7) Septic shock Is this a current diagnosis for this admission?: Yes
[2016-06-02] MEDS ORDERED: IMIPENEM/CILASTATIN SODIUM 250 MG in NORMAL SALINE 100 ML IV SCH (18:00)
[2016-06-02] MEDS: IMIPENEM/CILASTATIN SODIUM 250 MG in NORMAL SALINE 100 ML IV SCH (18:03)
[2016-06-02] MEDS: VANCOMYCIN HCL 750 MG in DEXTROSE 5%-WATER 250 ML IV SCH (18:04)
--- NOTE | 2016-06-02 20:37 | PDOC PROGRESS REPORT ---
Subjective Progress Note for:: 06/02/16 Subjective:: Patient about the same and has made some progress. Patient remains sedated and intubated. She is actually continuing to be off vasopressors. She did undergo dialysis today. She seems to be holding her own. Patient remains intubated, sedated, patient however looks comfortable and in acute distress. Patient has been seen by flame burner and box attacher. Patient remains critically ill. Medications reviewed. Physical Exam Vital Signs: Temp Pulse Resp BP Pulse Ox 98.1 F 130 H 25 H 128/107 H 100 06/02/16 18:00 06/02/16 18:00 06/02/16 18:00 06/02/16 18:24 06/02/16 18:35 Intake & Output 06/01/16 06/02/16 06/03/16 06:59 06:59 06:59 Intake Total 4194 5046 1557 Output Total 319 0 2000 Balance 3875 5046 -443 Weight 55.5 kg 59.6 kg Exam: GENERAL: well-nourished and in no acute distress. Patient is intubated and sedated. Orientation cannot be checked HEAD: Atraumatic, normocephalic. EYES: Pupils equal round and reactive to light, extraocular movements could not be checked, sclera anicteric, conjunctiva are normal. ENT: TMs normal, nares patent, oropharynx clear without exudates. Moist mucous membranes. No oral ulcerations or bleeding gums noted NECK: supple without lymphadenopathy or JVD. Trachea is central. No cervical or axillary lymphadenopathy noted. Carotids are 2+ LUNGS: Breath sounds mostly clear to auscultation patient is noted to have bibasal crackles at the at bases CHEST: Palpation of the chest wall shows no significant chest wall tenderness or abnormalities. 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 ABDOMEN: Soft, no significant tenderness appreciated, normoactive bowel sounds. No guarding, no rebound. No rigidity noted . No masses appreciated. EXTREMITIES: Pedal pulses are 1-2+, no calf tenderness noted, 1+ pedal edema noted. No clubbing or cyanosis. NEUROLOGICAL: The patient cannot participate in the neurological exam but no facial asymmetry noted. Extremities slightly hypotonic PSYCH: This cannot be evaluated. Patient cannot participate. SKIN: No significant ecchymosis, rash, or signs of pruritus noted. Signs of scleroderma noted. MUSCULOSKELETAL EXAM: No significant joint swelling noted. Patient cannot participate in musculoskeletal exam Results Laboratory Results: 06/02/16 12:13 06/02/16 08:30 06/02/16 06/02/16 06/02/16 05:35 05:35 08:30 WBC RBC Hgb Hct MCV MCH MCHC RDW Plt Count Seg Neutrophils % Lymphocytes % Monocytes % Eosinophils % Basophils % Absolute Neutrophils Absolute Lymphocytes Absolute Monocytes Absolute Eosinophils Absolute Basophils Carbonic Acid 0.80 L HCO3/H2CO3 Ratio 20:1 ABG pH 7.40 ABG pCO2 26.6 L ABG pO2 81.3 ABG HCO3 16.3 L ABG O2 Saturation 96.2 ABG Base Excess -7.1 FiO2 30% Sodium 134.6 L Potassium 3.7 Chloride 105 Carbon Dioxide 17 L Anion Gap 13 BUN 32 H Creatinine 2.74 H Est GFR ( Amer) 23 L Est GFR (Non-Af Amer) 19 L Glucose 130 H Lactic Acid Calcium 7.8 L Triglycerides 77 06/02/16 06/02/16 12:13 12:13 WBC 10.8 H RBC 3.82 Hgb 11.1 L Hct 34.5 L MCV 90 MCH 29.2 MCHC 32.3 RDW 20.6 H Plt Count 182 Seg Neutrophils % Not Reportable Lymphocytes % Not Reportable Monocytes % Not Reportable Eosinophils % Not Reportable Basophils % Not Reportable Absolute Neutrophils Not Reportable Absolute Lymphocytes Not Reportable Absolute Monocytes Not Reportable Absolute Eosinophils Not Reportable Absolute Basophils Not Reportable Carbonic Acid HCO3/H2CO3 Ratio ABG pH ABG pCO2 ABG pO2 ABG HCO3 ABG O2 Saturation ABG Base Excess FiO2 Sodium Potassium Chloride Carbon Dioxide Anion Gap BUN Creatinine Est GFR ( Amer) Est GFR (Non-Af Amer) Glucose Lactic Acid 1.1 Calcium Triglycerides 05/29/16 05/30/16 05/31/16 23:45 05:55 05:15 Creatine Kinase 31 CK-MB (CK-2) 1.81 1.71 Troponin I 0.069 0.094 05/31/16 05:15 Creatine Kinase CK-MB (CK-2) 1.46 Troponin I 0.079 Impressions: Chest/Abdomen CTA 05/29/16 18:00 IMPRESSION: No evidence for pulmonary embolic disease. Extensive chronic appearing changes as noted above. Small right pleural effusion is again identified which appears slightly larger than on the previous study. The previously described rounded masslike density in the right lower lobe is again identified. There is a central somewhat low density area and the possibility of a necrotic neoplasm or developing lung abscess cannot be excluded. Large pericardial effusion is again identified. Other findings as noted above Chest X-Ray 06/01/16 06:00 IMPRESSION: Persistent consolidation with air bronchograms in the medial right and left lung bases. Small bilateral pleural effusions Tubes and lines in good positioning Assessment & Plan - Diagnosis (1) Cardiac arrest Is this a current diagnosis for this admission?: Yes (2) Acute hypoxemic respiratory failure Is this a current diagnosis for this admission?: Yes (3) End stage renal disease Is this a current diagnosis for this admission?: Yes (4) Lung cancer Qualifiers: Laterality: unspecified laterality Lung location: unspecified part of lung Qualified Code(s): C34.90 - Malignant neoplasm of unspecified part of unspecified bronchus or lung Is this a current diagnosis for this admission?: Yes (5) Septic shock Is this a current diagnosis for this admission?: Yes (6) Pulmonary fibrosis Is this a current diagnosis for this admission?: Yes (7) Scleroderma Is this a current diagnosis for this admission?: Yes (8) Cardiomyopathy Qualifiers: Cardiomyopathy type: unspecified Qualified Code(s): I42.9 - Cardiomyopathy, unspecified Is this a current diagnosis for this admission?: Yes (9) Hypotension Qualifiers: Hypotension type: other hypotension type Qualified Code(s): I95.89 - Other hypotension Is this a current diagnosis for this admission?: Yes - Notes Notes: Patient remains critically ill, she remains off vasopressors but has underlying severe systemic illness which are basically irreversible. Patient's family still to make a decision about CODE STATUS. Overall prognosis remains poor. Continue to follow patient. Patient being evaluated by physician assistant, flame burner and box attacher. There are notes were reviewed. - Time Time with patient: 15-25 minutes - CODE STATUS was discussed, patient remains full code. Surrogate decision-maker unchanged. Multiple medical problems were addressed.More than 50% of the time spent coordinating care, discussing management plans with involved caregivers. Management plans discussed with involved personnels. Medical decision making was of moderate complexity.
[2016-06-03] MEDS: PROPOFOL 100 ML IV PRN ×3 (00:34→15:10)
[2016-06-03] MEDS: MORPHINE SULFATE 10 MG/ML INJ IV PRN (03:17)
[2016-06-03] MEDS: IMIPENEM/CILASTATIN SODIUM 250 MG in NORMAL SALINE 100 ML IV SCH ×2 (05:03→17:54)
[2016-06-03] MEDS: HEPARIN SOD (PORCINE) 5,000 UNIT/ML 1 ML SYRINGE SUBCUT SCH ×3 (05:03→22:41)
[2016-06-03] MEDS: NORMAL SALINE 1000 ML 1,000 ML IV PRN (05:04)
[2016-06-03] MEDS: DEXTROSE 10%-WATER 1,000 ML IV PRN ×2 (05:04→20:18)
[2016-06-03 06:51] LABS: ABSOLUTE BASOPHILS # (AUTO) 0.1 10^3/uL (0.0-0.2); ABSOLUTE EOSINOPHILS # (AUTO) 0.2 10^3/uL (0.0-0.6); ABSOLUTE LYMPHOCYTES (AUTO) 0.8 10^3/uL (0.5-4.7); ABSOLUTE MONOCYTES (AUTO) 0.4 10^3/uL (0.1-1.4); ABSOLUTE NEUT (AUTO) 9.3 10^3/uL (1.7-8.2); BASOPHILS % (AUTO) 0.7 % (0-2); EOSINOPHILS % (AUTO) 2.2 % (0-6); HEMATOCRIT 31.4 % (36.0-47.0); HEMOGLOBIN 10.2 g/dL (12.0-15.5); HGB HCT DIFFERENCE -0.8; LYMPHOCYTES % (AUTO) 7.5 % (13-45); MEAN CORPUSCULAR HEMOGLOBIN 29.3 pg (27.0-33.4); MEAN CORPUSCULAR HGB CONC 32.4 g/dL (32.0-36.0); MEAN CORPUSCULAR VOLUME 91 fl (80-97); MONOCYTES % (AUTO) 3.4 % (3-13); RED BLOOD COUNT 3.46 10^6/uL (3.72-5.28); RED CELL DISTRIBUTION WIDTH 21.1 % (11.5-14.0); SEGMENTED NEUTROPHILS % (AUTO) 86.2 % (42-78); WHITE BLOOD COUNT 10.8 10^3/uL (4.0-10.5)
[2016-06-03 06:52] LABS: ARTERIAL BLOOD BASE EXCESS -1.6 mmol/L; ARTERIAL BLOOD O2 SATURATION 95.9 % (94-98)
[2016-06-03 06:53] LABS: PROTHROMBIN TIME 16.5 SEC (11.4-15.4)
[2016-06-03 06:55] LABS: PARTIAL THROMBOPLASTIN TIME 52.5 SEC (23.5-35.8)
[2016-06-03 07:10] LABS: ANION GAP 13 (5-19); BLOOD UREA NITROGEN 25 mg/dL (7-20); CALCIUM 7.8 mg/dL (8.4-10.2); CARBON DIOXIDE 19 mmol/L (22-30); CHLORIDE 100 mmol/L (98-107); CREATININE RESULT 2.37 mg/dL (0.52-1.25); GLUCOSE 100 mg/dL (75-110); MAGNESIUM 1.4 mg/dL (1.6-2.3); PHOSPHORUS 3.7 mg/dL (2.5-4.5); POTASSIUM 3.5 mmol/L (3.6-5.0)
[2016-06-03] MEDS: LEVOFLOXACIN 500 MG/D5W RTU 500 MG/100 ML RTUPB IV SCH (09:45)
[2016-06-03] MEDS ORDERED: METOPROLOL TARTRATE PF/INJ 5 MG/5 ML SDV IV ONE (11:55)
[2016-06-03] MEDS: DEXTROSE 50%-WATER SYRINGE 12.5 GM/25 ML DOSE IV PRN (11:57)
--- NOTE | 2016-06-03 12:28 | PDOC PROGRESS REPORT ---
Subjective Progress Note for:: 06/03/16 Subjective:: Intubated and sedated Physical Exam Vital Signs: Temp Pulse Resp BP Pulse Ox 98.5 F 122 H 25 H 111/92 H 98 06/03/16 04:00 06/02/16 22:00 06/02/16 18:00 06/03/16 06:25 06/03/16 06:35 Intake & Output 06/02/16 06/03/16 06/04/16 06:59 06:59 06:59 Intake Total 5046 3311 Output Total 0 2001 Balance 5046 1309 Weight 59.6 kg 60.8 kg General appearance: PRESENT: no acute distress, disheveled, thin, other - Initiated Head exam: PRESENT: atraumatic, normocephalic Eye exam: PRESENT: conjunctiva pale Mouth exam: PRESENT: dry mucosa, neck supple, other - ET tube in place Neck exam: ABSENT: carotid bruit, JVD, lymphadenopathy, thyromegaly Respiratory exam: PRESENT: decreased breath sounds, prolonged expiratory phas, rhonchi, symmetrical, unlabored Cardiovascular exam: PRESENT: irregular rhythm Pulses: PRESENT: normal radial pulses GI/Abdominal exam: PRESENT: normal bowel sounds, soft. ABSENT: distended, guarding, mass, organolmegaly, rebound, tenderness Rectal exam: PRESENT: deferred Gentrourinary exam: PRESENT: indwelling catheter Musculoskeletal exam: PRESENT: normal inspection Skin exam: PRESENT: dry, intact Results Laboratory Results: 06/03/16 06:30 06/03/16 06:30 06/02/16 06/02/16 06/02/16 08:30 12:13 12:13 WBC 10.8 H RBC 3.82 Hgb 11.1 L Hct 34.5 L MCV 90 MCH 29.2 MCHC 32.3 RDW 20.6 H Plt Count 182 Seg Neutrophils % Not Reportable Lymphocytes % Not Reportable Monocytes % Not Reportable Eosinophils % Not Reportable Basophils % Not Reportable Absolute Neutrophils Not Reportable Absolute Lymphocytes Not Reportable Absolute Monocytes Not Reportable Absolute Eosinophils Not Reportable Absolute Basophils Not Reportable Carbonic Acid HCO3/H2CO3 Ratio ABG pH ABG pCO2 ABG pO2 ABG HCO3 ABG O2 Saturation ABG Base Excess FiO2 Sodium 134.6 L Potassium 3.7 Chloride 105 Carbon Dioxide 17 L Anion Gap 13 BUN 32 H Creatinine 2.74 H Est GFR ( Amer) 23 L Est GFR (Non-Af Amer) 19 L Glucose 130 H Lactic Acid 1.1 Calcium 7.8 L Phosphorus Magnesium 06/03/16 06/03/16 06/03/16 06:30 06:30 06:30 WBC 10.8 H RBC 3.46 L Hgb 10.2 L Hct 31.4 L MCV 91 MCH 29.3 MCHC 32.4 RDW 21.1 H Plt Count 159 Seg Neutrophils % 86.2 H Lymphocytes % 7.5 L Monocytes % 3.4 Eosinophils % 2.2 Basophils % 0.7 Absolute Neutrophils 9.3 H Absolute Lymphocytes 0.8 Absolute Monocytes 0.4 Absolute Eosinophils 0.2 Absolute Basophils 0.1 Carbonic Acid 0.95 L HCO3/H2CO3 Ratio 22:1 ABG pH 7.45 ABG pCO2 31.6 L ABG pO2 75.9 L ABG HCO3 21.6 ABG O2 Saturation 95.9 ABG Base Excess -1.6 FiO2 35% Sodium 132.0 L Potassium 3.5 L Chloride 100 Carbon Dioxide 19 L Anion Gap 13 BUN 25 H Creatinine 2.37 H Est GFR ( Amer) 27 L Est GFR (Non-Af Amer) 22 L Glucose 100 Lactic Acid Calcium 7.8 L Phosphorus 3.7 Magnesium 1.4 L 05/29/16 05/30/16 05/31/16 23:45 05:55 05:15 Creatine Kinase 31 CK-MB (CK-2) 1.81 1.71 Troponin I 0.069 0.094 05/31/16 05:15 Creatine Kinase CK-MB (CK-2) 1.46 Troponin I 0.079 Impressions: Chest/Abdomen CTA 05/29/16 18:00 IMPRESSION: No evidence for pulmonary embolic disease. Extensive chronic appearing changes as noted above. Small right pleural effusion is again identified which appears slightly larger than on the previous study. The previously described rounded masslike density in the right lower lobe is again identified. There is a central somewhat low density area and the possibility of a necrotic neoplasm or developing lung abscess cannot be excluded. Large pericardial effusion is again identified. Other findings as noted above Chest X-Ray 06/03/16 06:00 IMPRESSION: No change from yesterday Assessment & Plan - Diagnosis (1) Acute hypoxemic respiratory failure Is this a current diagnosis for this admission?: YesPlan: Oxygenating well with adequate ventilation compensating for metabolic acidosis (2) End stage renal disease Is this a current diagnosis for this admission?: YesPlan: Improving creatinine and BUN (3) Lung abscess Qualifiers: Pulmonary abscess pneumonia presence: with pneumonia Laterality: right Lung location: unspecified part of lung Qualified Code(s): J85.1 - Abscess of lung with pneumonia Is this a current diagnosis for this admission?: No (4) Lung cancer Qualifiers: Laterality: unspecified laterality Lung location: unspecified part of lung Qualified Code(s): C34.90 - Malignant neoplasm of unspecified part of unspecified bronchus or lung Is this a current diagnosis for this admission?: Yes - Time Critical Time spent with patient: 25-34 minutes - 30 minutes
[2016-06-03] MEDS: DEXTROSE 50%-WATER SYRINGE 25 GM/50 ML DOSE IV PRN (18:05)
[2016-06-03] MEDS ORDERED: METOCLOPRAMIDE HCL INJ/PF 10 MG/2 ML SDV IV ONE (19:00)
--- NOTE | 2016-06-03 19:56 | PDOC PROGRESS REPORT ---
Subjective Progress Note for:: 06/03/16 Subjective:: Patient about the same and has made some progress. Patient remains sedated and intubated. She is actually continuing to be off vasopressors. She seems to be holding her own. Patient noted to be intermittently tachycardic. Have ordered low-dose beta blockers intravenously for intermittent tachycardia on when necessary basis. Patient remains intubated, sedated, patient however looks comfortable and in acute distress. 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 Patient remains critically ill. Medications reviewed. Physical Exam Vital Signs: Temp Pulse Resp BP Pulse Ox 98.4 F 117 H 25 H 136/112 H 100 06/03/16 16:00 06/03/16 18:00 06/03/16 18:00 06/03/16 18:26 06/03/16 18:40 Intake & Output 06/02/16 06/03/16 06/04/16 06:59 06:59 06:59 Intake Total 5046 3311 1409 Output Total 0 2002 Balance 5046 1309 1409 Weight 59.6 kg 60.8 kg Exam: GENERAL: well-nourished and in no acute distress. Patient is intubated and sedated. Orientation cannot be checked HEAD: Atraumatic, normocephalic. EYES: Pupils equal round and reactive to light, extraocular movements could not be checked, sclera anicteric, conjunctiva are normal. ENT: TMs normal, nares patent, oropharynx clear without exudates. Moist mucous membranes. No oral ulcerations or bleeding gums noted NECK: supple without lymphadenopathy or JVD. Trachea is central. No cervical or axillary lymphadenopathy noted. Carotids are 2+ LUNGS: Breath sounds mostly clear to auscultation patient is noted to have bibasal crackles at the both bases CHEST: Palpation of the chest wall shows no significant chest wall tenderness or abnormalities. 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 ABDOMEN: Soft, no significant tenderness appreciated, normoactive bowel sounds. No guarding, no rebound. No rigidity noted . No masses appreciated. EXTREMITIES: Pedal pulses are 1-2+, no calf tenderness noted, 1+ pedal edema noted. No clubbing or cyanosis. NEUROLOGICAL: The patient cannot participate in the neurological exam but no facial asymmetry noted. Extremities slightly hypotonic PSYCH: This cannot be evaluated. Patient cannot participate. SKIN: No significant ecchymosis, rash, or signs of pruritus noted. Scleroderma changes are noted. Minute ulcerations noted on fingertips. MUSCULOSKELETAL EXAM: No significant joint swelling noted. Patient cannot participate in musculoskeletal exam Results Laboratory Results: 06/03/16 06:30 06/03/16 06:30 06/03/16 06/03/16 06/03/16 06:30 06:30 06:30 WBC 10.8 H RBC 3.46 L Hgb 10.2 L Hct 31.4 L MCV 91 MCH 29.3 MCHC 32.4 RDW 21.1 H Plt Count 159 Seg Neutrophils % 86.2 H Lymphocytes % 7.5 L Monocytes % 3.4 Eosinophils % 2.2 Basophils % 0.7 Absolute Neutrophils 9.3 H Absolute Lymphocytes 0.8 Absolute Monocytes 0.4 Absolute Eosinophils 0.2 Absolute Basophils 0.1 Carbonic Acid 0.95 L HCO3/H2CO3 Ratio 22:1 ABG pH 7.45 ABG pCO2 31.6 L ABG pO2 75.9 L ABG HCO3 21.6 ABG O2 Saturation 95.9 ABG Base Excess -1.6 FiO2 35% Sodium 132.0 L Potassium 3.5 L Chloride 100 Carbon Dioxide 19 L Anion Gap 13 BUN 25 H Creatinine 2.37 H Est GFR ( Amer) 27 L Est GFR (Non-Af Amer) 22 L Glucose 100 Calcium 7.8 L Phosphorus 3.7 Magnesium 1.4 L 06/01/16 10:35 Tracheal Aspirate Gram Stain - Final 06/01/16 10:35 Tracheal Aspirate Sputum Culture - Final C.albicans/C.dubliniensis Reduced Normal Soraya 05/29/16 05/30/16 05/31/16 23:45 05:55 05:15 Creatine Kinase 31 CK-MB (CK-2) 1.81 1.71 Troponin I 0.069 0.094 05/31/16 05:15 Creatine Kinase CK-MB (CK-2) 1.46 Troponin I 0.079 Impressions: Chest/Abdomen CTA 05/29/16 18:00 IMPRESSION: No evidence for pulmonary embolic disease. Extensive chronic appearing changes as noted above. Small right pleural effusion is again identified which appears slightly larger than on the previous study. The previously described rounded masslike density in the right lower lobe is again identified. There is a central somewhat low density area and the possibility of a necrotic neoplasm or developing lung abscess cannot be excluded. Large pericardial effusion is again identified. Other findings as noted above Chest X-Ray 06/03/16 06:00 IMPRESSION: No change from yesterday Assessment & Plan - Diagnosis (1) Cardiac arrest Is this a current diagnosis for this admission?: Yes (2) Acute hypoxemic respiratory failure Is this a current diagnosis for this admission?: Yes (3) End stage renal disease Is this a current diagnosis for this admission?: Yes (4) Lung cancer Qualifiers: Laterality: unspecified laterality Lung location: unspecified part of lung Qualified Code(s): C34.90 - Malignant neoplasm of unspecified part of unspecified bronchus or lung Is this a current diagnosis for this admission?: Yes (5) Septic shock Is this a current diagnosis for this admission?: Yes (6) Pulmonary fibrosis Is this a current diagnosis for this admission?: Yes (7) Scleroderma Is this a current diagnosis for this admission?: Yes (8) Cardiomyopathy Qualifiers: Cardiomyopathy type: unspecified Qualified Code(s): I42.9 - Cardiomyopathy, unspecified Is this a current diagnosis for this admission?: Yes (9) Hypotension Qualifiers: Hypotension type: other hypotension type Qualified Code(s): I95.89 - Other hypotension Is this a current diagnosis for this admission?: Yes - Notes Notes: Patient remains critically ill. Patient is still intubated and ventilated. Patient has severe multisystem disease. Overall prognosis is guarded and on the poor side. Continue current management plans. Will gradually optimized management for her myopathy. Will follow other subspecialties recommendations. - Time Time with patient: 15-25 minutes - CODE STATUS was discussed, patient remains full code. Surrogate decision-maker unchanged. Multiple medical problems were addressed.More than 50% of the time spent coordinating care, discussing management plans with involved caregivers. Management plans discussed with involved personnels. Medical decision making was of high complexity.
[2016-06-03] MEDS: METOPROLOL TARTRATE PF/INJ 5 MG/5 ML SDV IV PRN (20:17)
--- NOTE | 2016-06-03 20:19 | PDOC PROGRESS REPORT ---
Subjective Progress Note for:: 06/03/16 Subjective:: She was seen by the bedside, she is still intubated sedated on mechanical ventilation. I again spent a long period of time discussing prognosis of this patient with family and the plan of care, she is having difficulty tolerating tube feed, she has residual, we will start patient on low-dose Reglan hopefully that will improve GI motility and improve food absorption. Physical Exam Vital Signs: Temp Pulse Resp BP Pulse Ox 99.5 F 117 H 25 H 136/112 H 100 06/03/16 20:03 06/03/16 18:00 06/03/16 18:00 06/03/16 18:26 06/03/16 18:40 Intake & Output 06/02/16 06/03/16 06/04/16 06:59 06:59 06:59 Intake Total 5046 3311 1409 Output Total 0 2002 0 Balance 5046 1309 1409 Weight 59.6 kg 60.8 kg Eye exam: PRESENT: PERRLA Respiratory exam: PRESENT: rhonchi Cardiovascular exam: PRESENT: +S1, +S2 GI/Abdominal exam: PRESENT: soft Neurological exam: PRESENT: other - Sedated Results Laboratory Results: 06/03/16 06:30 06/03/16 06:30 06/03/16 06/03/16 06/03/16 06:30 06:30 06:30 WBC 10.8 H RBC 3.46 L Hgb 10.2 L Hct 31.4 L MCV 91 MCH 29.3 MCHC 32.4 RDW 21.1 H Plt Count 159 Seg Neutrophils % 86.2 H Lymphocytes % 7.5 L Monocytes % 3.4 Eosinophils % 2.2 Basophils % 0.7 Absolute Neutrophils 9.3 H Absolute Lymphocytes 0.8 Absolute Monocytes 0.4 Absolute Eosinophils 0.2 Absolute Basophils 0.1 Carbonic Acid 0.95 L HCO3/H2CO3 Ratio 22:1 ABG pH 7.45 ABG pCO2 31.6 L ABG pO2 75.9 L ABG HCO3 21.6 ABG O2 Saturation 95.9 ABG Base Excess -1.6 FiO2 35% Sodium 132.0 L Potassium 3.5 L Chloride 100 Carbon Dioxide 19 L Anion Gap 13 BUN 25 H Creatinine 2.37 H Est GFR ( Amer) 27 L Est GFR (Non-Af Amer) 22 L Glucose 100 Calcium 7.8 L Phosphorus 3.7 Magnesium 1.4 L 06/01/16 10:35 Tracheal Aspirate Gram Stain - Final 06/01/16 10:35 Tracheal Aspirate Sputum Culture - Final C.albicans/C.dubliniensis Reduced Normal [place]aya 05/29/16 05/30/16 05/31/16 23:45 05:55 05:15 Creatine Kinase 31 CK-MB (CK-2) 1.81 1.71 Troponin I 0.069 0.094 05/31/16 05:15 Creatine Kinase CK-MB (CK-2) 1.46 Troponin I 0.079 Impressions: Chest/Abdomen CTA 05/29/16 18:00 IMPRESSION: No evidence for pulmonary embolic disease. Extensive chronic appearing changes as noted above. Small right pleural effusion is again identified which appears slightly larger than on the previous study. The previously described rounded masslike density in the right lower lobe is again identified. There is a central somewhat low density area and the possibility of a necrotic neoplasm or developing lung abscess cannot be excluded. Large pericardial effusion is again identified. Other findings as noted above Chest X-Ray 06/03/16 06:00 IMPRESSION: No change from yesterday Assessment & Plan - Diagnosis (1) Acute hypoxemic respiratory failure Is this a current diagnosis for this admission?: Yes (2) Lung cancer Qualifiers: Qualified Code(s): C34.90 - Malignant neoplasm of unspecified part of unspecified bronchus or lung Is this a current diagnosis for this admission?: Yes (3) Lung abscess Qualifiers: Qualified Code(s): J85.1 - Abscess of lung with pneumonia Is this a current diagnosis for this admission?: No (4) End stage renal disease Is this a current diagnosis for this admission?: Yes (5) Cardiac arrest Is this a current diagnosis for this admission?: Yes (6) Cardiogenic shock Is this a current diagnosis for this admission?: Yes (7) Septic shock Is this a current diagnosis for this admission?: YesPlan: Patient is presently of intravenous vasopressors, still on IV antibiotic and mechanical ventilation
[2016-06-04] MEDS: METOCLOPRAMIDE HCL INJ/PF 10 MG/2 ML SDV IV SCH ×3 (01:59→18:08)
[2016-06-04] MEDS: NORMAL SALINE 1000 ML 1,000 ML IV PRN (01:59)
[2016-06-04] MEDS: PROPOFOL 100 ML IV PRN ×3 (02:00→21:52)
[2016-06-04] MEDS: IMIPENEM/CILASTATIN SODIUM 250 MG in NORMAL SALINE 100 ML IV SCH ×2 (06:04→18:06)
[2016-06-04 06:05] LABS: ARTERIAL BLOOD BASE EXCESS -2.1 mmol/L; ARTERIAL BLOOD O2 SATURATION 97.6 % (94-98)
[2016-06-04] MEDS: HEPARIN SOD (PORCINE) 5,000 UNIT/ML 1 ML SYRINGE SUBCUT SCH ×3 (06:05→21:51)
[2016-06-04 06:08] LABS: ABSOLUTE BASOPHILS # (AUTO) 0.1 10^3/uL (0.0-0.2); ABSOLUTE EOSINOPHILS # (AUTO) 0.2 10^3/uL (0.0-0.6); ABSOLUTE LYMPHOCYTES (AUTO) 0.8 10^3/uL (0.5-4.7); ABSOLUTE MONOCYTES (AUTO) 0.6 10^3/uL (0.1-1.4); ABSOLUTE NEUT (AUTO) 9.4 10^3/uL (1.7-8.2); BASOPHILS % (AUTO) 0.6 % (0-2); EOSINOPHILS % (AUTO) 1.6 % (0-6); HEMOGLOBIN 10.2 g/dL (12.0-15.5); HGB HCT DIFFERENCE -1.4; LYMPHOCYTES % (AUTO) 7.5 % (13-45); MEAN CORPUSCULAR HEMOGLOBIN 28.9 pg (27.0-33.4); MEAN CORPUSCULAR HGB CONC 31.8 g/dL (32.0-36.0); MEAN CORPUSCULAR VOLUME 91 fl (80-97); MONOCYTES % (AUTO) 5.4 % (3-13); RED BLOOD COUNT 3.52 10^6/uL (3.72-5.28); RED CELL DISTRIBUTION WIDTH 20.7 % (11.5-14.0); SEGMENTED NEUTROPHILS % (AUTO) 84.9 % (42-78); WHITE BLOOD COUNT 11.1 10^3/uL (4.0-10.5)
[2016-06-04 06:23] LABS: ANION GAP 13 (5-19); BLOOD UREA NITROGEN 28 mg/dL (7-20); CARBON DIOXIDE 17 mmol/L (22-30); CHLORIDE 99 mmol/L (98-107); CREATININE RESULT 2.75 mg/dL (0.52-1.25); GLUCOSE 88 mg/dL (75-110); MAGNESIUM 1.5 mg/dL (1.6-2.3); POTASSIUM 3.7 mmol/L (3.6-5.0); SODIUM 128.8 mmol/L (137-145)
[2016-06-04] MEDS: LEVOFLOXACIN 500 MG/D5W RTU 500 MG/100 ML RTUPB IV SCH (07:39)
[2016-06-04] MEDS ORDERED: HEPARIN SOD (PORCINE) 1,000 UNIT/ML 10 ML VIAL IV PRN (09:48)
--- NOTE | 2016-06-04 10:52 | PDOC PROGRESS REPORT ---
Subjective Progress Note for:: 06/04/16 Subjective:: Patient was seen in the ICU today. She is in the process of undergoing dialysis. Discussions were done with the treating nurse Bridgett. Patient has been taken off pressors and remains more stable today. However she is fluid overloaded. Patient is also more awake and sometimes responding to questions by blinking her eyes. Medications and labs were reviewed. Physical Exam Vital Signs: Temp Pulse Resp BP Pulse Ox 97.8 F 109 H 25 H 156/87 H 100 06/04/16 10:00 06/04/16 10:00 06/04/16 10:00 06/04/16 10:00 06/04/16 10:00 Intake & Output 06/03/16 06/04/16 06/05/16 06:59 06:59 06:59 Intake Total 3311 2951 Output Total 2001 0 0 Balance 1309 2951 0 Weight 60.8 kg 63.7 kg Exam: Patient remains intubated. However she is not sedated as much. She is more responsive and and also at times by bringing her eyes to questions. Respiratory exam: PRESENT: clear to auscultation frankie, crackles. ABSENT: rhonchi Cardiovascular exam: PRESENT: +S1, +S2, systolic murmur GI/Abdominal exam: PRESENT: normal bowel sounds, soft. ABSENT: distended, firm , tenderness Extremities exam: PRESENT: +1 edema Results Laboratory Results: 06/04/16 05:40 06/04/16 05:40 06/04/16 06/04/16 06/04/16 05:40 05:40 05:40 WBC 11.1 H RBC 3.52 L Hgb 10.2 L Hct 32.0 L MCV 91 MCH 28.9 MCHC 31.8 L RDW 20.7 H Plt Count 172 Seg Neutrophils % 84.9 H Lymphocytes % 7.5 L Monocytes % 5.4 Eosinophils % 1.6 Basophils % 0.6 Absolute Neutrophils 9.4 H Absolute Lymphocytes 0.8 Absolute Monocytes 0.6 Absolute Eosinophils 0.2 Absolute Basophils 0.1 Carbonic Acid 0.92 L HCO3/H2CO3 Ratio 22:1 ABG pH 7.45 ABG pCO2 30.5 L ABG pO2 94.6 ABG HCO3 20.9 ABG O2 Saturation 97.6 ABG Base Excess -2.1 FiO2 30% Sodium 128.8 L Potassium 3.7 Chloride 99 Carbon Dioxide 17 L Anion Gap 13 BUN 28 H Creatinine 2.75 H Est GFR ( Amer) 23 L Est GFR (Non-Af Amer) 19 L Glucose 88 Calcium 8.0 L Magnesium 1.5 L 06/01/16 10:35 Tracheal Aspirate Gram Stain - Final 06/01/16 10:35 Tracheal Aspirate Sputum Culture - Final C.albicans/C.dubliniensis Reduced Normal Soraya 05/29/16 05/30/16 05/31/16 23:45 05:55 05:15 Creatine Kinase 31 CK-MB (CK-2) 1.81 1.71 Troponin I 0.069 0.094 05/31/16 05:15 Creatine Kinase CK-MB (CK-2) 1.46 Troponin I 0.079 Impressions: Chest/Abdomen CTA 05/29/16 18:00 IMPRESSION: No evidence for pulmonary embolic disease. Extensive chronic appearing changes as noted above. Small right pleural effusion is again identified which appears slightly larger than on the previous study. The previously described rounded masslike density in the right lower lobe is again identified. There is a central somewhat low density area and the possibility of a necrotic neoplasm or developing lung abscess cannot be excluded. Large pericardial effusion is again identified. Other findings as noted above Chest X-Ray 06/04/16 06:00 IMPRESSION: MARKED CARDIOMEGALY WITH PULMONARY EDEMA AND PLEURAL EFFUSIONS. NO CHANGE. Assessment & Plan - Diagnosis (1) Acute hypoxemic respiratory failure Is this a current diagnosis for this admission?: YesPlan: Presently intubated And she is not so sedated. She is more responsive and at times responds by blinking her eyes (2) End stage renal disease Is this a current diagnosis for this admission?: YesPlan: Patient undergoing dialysis. We will plan to remove at least 2 L of fluid as tolerated. Orders were discussed with the treating nurse. (3) Lung abscess Qualifiers: Pulmonary abscess pneumonia presence: with pneumonia Laterality: right Lung location: unspecified part of lung Qualified Code(s): J85.1 - Abscess of lung with pneumonia Is this a current diagnosis for this admission?: NoPlan: Patient in septic shock, but recovering and she is currently off pressors. Patient on antibiotics. Monitor. (4) Lung cancer Qualifiers: Laterality: unspecified laterality Lung location: unspecified part of lung Qualified Code(s): C34.90 - Malignant neoplasm of unspecified part of unspecified bronchus or lung Is this a current diagnosis for this admission?: YesPlan: Has been seen at [facility] multiple times , but has had no definitive treatments done given the very poor prognosis and very poor serious comorbidities. (5) Septic shock Is this a current diagnosis for this admission?: YesPlan: Patient currently off vasopressin. Improving. On antibiotics. (7) Pulmonary fibrosis Is this a current diagnosis for this admission?: Yes (8) Scleroderma Is this a current diagnosis for this admission?: YesPlan: With severe comorbidities and complications of the disease. (9) Anemia Plan: Monitor. Adjust low-dose erythropoietin.
[2016-06-04] MEDS: VANCOMYCIN HCL 750 MG in DEXTROSE 5%-WATER 250 ML IV SCH (18:04)
[2016-06-04] MEDS: DEXTROSE 10%-WATER 1,000 ML IV PRN (18:06)
--- NOTE | 2016-06-04 19:37 | XCELERA REPORT ---
[address] [address] Transthoracic Echocardiogram Report Name: FELISA MILES Age: 40 yrs Gender: Female : 1975 Patient Status: Inpatient Patient Location: ICU\S\608\S\A Study Date: 06/04/2016 01:51 PM Height: 66 in Weight: 134 lb BSA: 1.7 m2 Procedure: A complete two-dimensional transthoracic echocardiogram was performed (2D, M-mode, spectral and color flow Doppler). The study was technically adequate with some images being suboptimal in quality. Reason For Study: F/U limited eval EF and pericardial effusion Ordering Physician: MCKINLEY HANSON Performed By: Aixa Thompson Interpretation Summary The Ejection Fraction estimate is <20% Left ventricular systolic function is severely reduced. There is mild concentric left ventricular hypertrophy. The left ventricle is grossly normal size. LV diastolic function not assessed. There is severe global hypokinesis of the left ventricle. The right ventricular systolic function is severely reduced. The right atrium is mild to moderately dilated. The left atrium is moderately dilated. There is a moderate amount of mitral regurgitation There is no mitral valve stenosis. There is a trace amount of aortic regurgitation There is no aortic valve stenosis There is a mild amount of tricuspid regurgitation There is mild pulmonary hypertension by echo Right ventricular systolic pressure is estimated to be elevated at 30- 40mmHg. The aortic root is not well visualized but is probably normal size. The inferior vena cava appeared normal and decreased < 50% with respiration (RAP 10-15 mmHg) Small to moderate pericardial effusion. There are no echocardiographic indications of cardiac tamponade. Moderate size left pleural effusion. MMode/2D Measurements \T\ Calculations RVDd: 3.4 cm LVIDd: 6.0 cm FS: 6.9 % Ao root diam: 2.9 cm IVSd: 1.1 cm LVIDs: 5.6 cm EDV(Teich): 177.9 ml LVPWd: 1.1 cm ESV(Teich): 150.9 ml Ao root area: 6.7 cm2 EF(Teich): 15.2 % LA dimension: 4.9 cm Doppler Measurements \T\ Calculations TR max quirino: 255.2 cm/sec TR max P.0 mmHg Left Ventricle The left ventricle is grossly normal size. There is mild concentric left ventricular hypertrophy. Left ventricular systolic function is severely reduced. The Ejection Fraction estimate is <20%. LV diastolic function not assessed. There is severe global hypokinesis of the left ventricle. Right Ventricle The right ventricle is grossly normal size. There is normal right ventricular wall thickness. The right ventricular systolic function is severely reduced. Atria The right atrium is mild to moderately dilated. The left atrium is moderately dilated. Interarterial septum not well visualized and not well dopplered. Cannot comment on ASD/PFO presence. Mitral Valve The mitral valve is grossly normal. There is no mitral valve stenosis. There is a moderate amount of mitral regurgitation. Aortic Valve The aortic valve is grossly normal. There is no aortic valve stenosis. There is a trace amount of aortic regurgitation. Tricuspid Valve The tricuspid valve is not well visualized, but is grossly normal. There is no tricuspid stenosis. There is a mild amount of tricuspid regurgitation. There is mild pulmonary hypertension by echo. Right ventricular systolic pressure is estimated to be elevated at 30-40mmHg. Pulmonic Valve The pulmonic valve is not well visualized. Great Vessels The aortic root is not well visualized but is probably normal size. The inferior vena cava appeared normal and decreased < 50% with respiration (RAP 10-15 mmHg). Effusions Small to moderate pericardial effusion. There are no echocardiographic indications of cardiac tamponade. Moderate size left pleural effusion. : MCKINLEY HANSON > Mckinley Hanson
--- NOTE | 2016-06-04 20:14 | PDOC PROGRESS REPORT ---
Subjective Progress Note for:: 06/04/16 Subjective:: Patient about the same and has made some progress. Patient remains sedated and intubated. She is actually continuing to be off vasopressors. She seems to be holding her own. Patient noted to be intermittently tachycardic. Have ordered low-dose beta blockers intravenously for intermittent tachycardia on when necessary basis. Patient remains intubated, sedated, patient however looks comfortable and in acute distress. Patient has been seen by recycling crew supervisor and erection shop supervisor. Patient remains critically ill. Patient did have a follow-up echocardiogram which showed severely depressed LVEF , best estimate of EF is about 15%. In addition right ventricular ejection fraction also seems severely depressed. Moderate mitral regurgitation noted. Medications reviewed. Physical Exam Vital Signs: Temp Pulse Resp BP Pulse Ox 98.4 F 127 H 25 H 119/105 H 99 06/04/16 19:55 06/04/16 17:59 06/04/16 17:59 06/04/16 18:27 06/04/16 19:05 Intake & Output 06/03/16 06/04/16 06/05/16 06:59 06:59 06:59 Intake Total 3311 2951 1256 Output Total 2002 0 2100 Balance 1309 2951 -844 Weight 60.8 kg 63.7 kg Exam: GENERAL: well-nourished and in no acute distress. Patient is intubated and sedated. Orientation cannot be checked HEAD: Atraumatic, normocephalic. EYES: Pupils equal round and reactive to light, extraocular movements could not be checked, sclera anicteric, conjunctiva are normal. ENT: TMs normal, nares patent, oropharynx clear without exudates. Moist mucous membranes. No oral ulcerations or bleeding gums noted NECK: supple without lymphadenopathy or JVD. Trachea is central. No cervical or axillary lymphadenopathy noted. Carotids are 2+ LUNGS: Breath sounds mostly clear to auscultation patient is noted to have bibasal crackles at the extreme bases CHEST: Palpation of the chest wall shows no significant chest wall tenderness or abnormalities. 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 ABDOMEN: Soft, no significant tenderness appreciated, normoactive bowel sounds. No guarding, no rebound. No rigidity noted . No masses appreciated. EXTREMITIES: Pedal pulses are 1-2+, no calf tenderness noted, 1+ pedal edema noted. No clubbing or cyanosis. NEUROLOGICAL: The patient cannot participate in the neurological exam but no facial asymmetry noted. Extremities slightly hypotonic PSYCH: This cannot be evaluated. Patient cannot participate. SKIN: No significant ecchymosis, rash, or signs of pruritus noted. MUSCULOSKELETAL EXAM: No significant joint swelling noted. Patient cannot participate in musculoskeletal exam Results Laboratory Results: 06/04/16 05:40 06/04/16 05:40 06/04/16 06/04/16 06/04/16 05:40 05:40 05:40 WBC 11.1 H RBC 3.52 L Hgb 10.2 L Hct 32.0 L MCV 91 MCH 28.9 MCHC 31.8 L RDW 20.7 H Plt Count 172 Seg Neutrophils % 84.9 H Lymphocytes % 7.5 L Monocytes % 5.4 Eosinophils % 1.6 Basophils % 0.6 Absolute Neutrophils 9.4 H Absolute Lymphocytes 0.8 Absolute Monocytes 0.6 Absolute Eosinophils 0.2 Absolute Basophils 0.1 Carbonic Acid 0.92 L HCO3/H2CO3 Ratio 22:1 ABG pH 7.45 ABG pCO2 30.5 L ABG pO2 94.6 ABG HCO3 20.9 ABG O2 Saturation 97.6 ABG Base Excess -2.1 FiO2 30% Sodium 128.8 L Potassium 3.7 Chloride 99 Carbon Dioxide 17 L Anion Gap 13 BUN 28 H Creatinine 2.75 H Est GFR ( Amer) 23 L Est GFR (Non-Af Amer) 19 L Glucose 88 Calcium 8.0 L Magnesium 1.5 L 05/29/16 05/30/16 05/31/16 23:45 05:55 05:15 Creatine Kinase 31 CK-MB (CK-2) 1.81 1.71 Troponin I 0.069 0.094 05/31/16 05:15 Creatine Kinase CK-MB (CK-2) 1.46 Troponin I 0.079 Impressions: Chest/Abdomen CTA 05/29/16 18:00 IMPRESSION: No evidence for pulmonary embolic disease. Extensive chronic appearing changes as noted above. Small right pleural effusion is again identified which appears slightly larger than on the previous study. The previously described rounded masslike density in the right lower lobe is again identified. There is a central somewhat low density area and the possibility of a necrotic neoplasm or developing lung abscess cannot be excluded. Large pericardial effusion is again identified. Other findings as noted above Chest X-Ray 06/04/16 06:00 IMPRESSION: MARKED CARDIOMEGALY WITH PULMONARY EDEMA AND PLEURAL EFFUSIONS. NO CHANGE. Assessment & Plan - Diagnosis (1) Cardiac arrest Is this a current diagnosis for this admission?: Yes (2) Acute hypoxemic respiratory failure Is this a current diagnosis for this admission?: Yes (3) End stage renal disease Is this a current diagnosis for this admission?: Yes (4) Lung cancer Qualifiers: Laterality: unspecified laterality Lung location: unspecified part of lung Qualified Code(s): C34.90 - Malignant neoplasm of unspecified part of unspecified bronchus or lung Is this a current diagnosis for this admission?: Yes (5) Septic shock Is this a current diagnosis for this admission?: Yes (6) Pulmonary fibrosis Is this a current diagnosis for this admission?: Yes (7) Scleroderma Is this a current diagnosis for this admission?: Yes (8) Cardiomyopathy Qualifiers: Cardiomyopathy type: unspecified Qualified Code(s): I42.9 - Cardiomyopathy, unspecified Is this a current diagnosis for this admission?: Yes (9) Hypotension Qualifiers: Hypotension type: other hypotension type Qualified Code(s): I95.89 - Other hypotension Is this a current diagnosis for this admission?: Yes - Notes Notes: Patient remains critically ill. Have her evaluated her cardiac condition by a follow-up echocardiogram. These findings were discussed with patient's . Her LVEF has remained severely depressed. In addition RVEF is also severely depressed. These are poor prognostic factor. Patient continues to be in respiratory failure. Patient however has maintained her own. Patient did tolerate dialysis. Will gradually institute LUZ inhibitor therapy if patient remains stable with stable blood pressure. Multiple problems were addressed. Patient's overall prognosis being poor. Medications changes performed based on echocardiogram results. - Time Time with patient: Greater than 35 minutes - CODE STATUS was discussed, patient remains full code. Surrogate decision-maker unchanged. Multiple medical problems were addressed.More than 50% of the time spent coordinating care, discussing management plans with involved caregivers. Management plans discussed with involved personnels. Medical decision making was of moderate complexity.
--- NOTE | 2016-06-04 20:30 | PDOC PROGRESS REPORT ---
Subjective Progress Note for:: 06/04/16 Subjective:: Patient's condition remains very critical on mechanical ventilation recently of intravenous vasopressors. Seen by the bedside family in the room Physical Exam Vital Signs: Temp Pulse Resp BP Pulse Ox 98.4 F 127 H 25 H 119/105 H 99 06/04/16 19:55 06/04/16 17:59 06/04/16 17:59 06/04/16 18:27 06/04/16 19:05 Intake & Output 06/03/16 06/04/16 06/05/16 06:59 06:59 06:59 Intake Total 3311 2951 1256 Output Total 2001 0 2100 Balance 1309 2951 -844 Weight 60.8 kg 63.7 kg General appearance: PRESENT: other - Patient on mechanical ventilation, sedated Respiratory exam: PRESENT: other - Rotation of the chest reveal cardiac entry upper lung field with minimal rhonchi Cardiovascular exam: PRESENT: +S1, +S2 GI/Abdominal exam: PRESENT: soft Results Laboratory Results: 06/04/16 05:40 06/04/16 05:40 06/04/16 06/04/16 06/04/16 05:40 05:40 05:40 WBC 11.1 H RBC 3.52 L Hgb 10.2 L Hct 32.0 L MCV 91 MCH 28.9 MCHC 31.8 L RDW 20.7 H Plt Count 172 Seg Neutrophils % 84.9 H Lymphocytes % 7.5 L Monocytes % 5.4 Eosinophils % 1.6 Basophils % 0.6 Absolute Neutrophils 9.4 H Absolute Lymphocytes 0.8 Absolute Monocytes 0.6 Absolute Eosinophils 0.2 Absolute Basophils 0.1 Carbonic Acid 0.92 L HCO3/H2CO3 Ratio 22:1 ABG pH 7.45 ABG pCO2 30.5 L ABG pO2 94.6 ABG HCO3 20.9 ABG O2 Saturation 97.6 ABG Base Excess -2.1 FiO2 30% Sodium 128.8 L Potassium 3.7 Chloride 99 Carbon Dioxide 17 L Anion Gap 13 BUN 28 H Creatinine 2.75 H Est GFR ( Amer) 23 L Est GFR (Non-Af Amer) 19 L Glucose 88 Calcium 8.0 L Magnesium 1.5 L 05/29/16 05/30/16 05/31/16 23:45 05:55 05:15 Creatine Kinase 31 CK-MB (CK-2) 1.81 1.71 Troponin I 0.069 0.094 05/31/16 05:15 Creatine Kinase CK-MB (CK-2) 1.46 Troponin I 0.079 Impressions: Chest/Abdomen CTA 05/29/16 18:00 IMPRESSION: No evidence for pulmonary embolic disease. Extensive chronic appearing changes as noted above. Small right pleural effusion is again identified which appears slightly larger than on the previous study. The previously described rounded masslike density in the right lower lobe is again identified. There is a central somewhat low density area and the possibility of a necrotic neoplasm or developing lung abscess cannot be excluded. Large pericardial effusion is again identified. Other findings as noted above Chest X-Ray 06/04/16 06:00 IMPRESSION: MARKED CARDIOMEGALY WITH PULMONARY EDEMA AND PLEURAL EFFUSIONS. NO CHANGE. Assessment & Plan - Diagnosis (1) Acute hypoxemic respiratory failure Is this a current diagnosis for this admission?: Yes (2) Lung cancer Qualifiers: Laterality: unspecified laterality Lung location: unspecified part of lung Qualified Code(s): C34.90 - Malignant neoplasm of unspecified part of unspecified bronchus or lung Is this a current diagnosis for this admission?: Yes (3) Lung abscess Qualifiers: Pulmonary abscess pneumonia presence: with pneumonia Laterality: right Lung location: unspecified part of lung Qualified Code(s): J85.1 - Abscess of lung with pneumonia Is this a current diagnosis for this admission?: No (4) End stage renal disease Is this a current diagnosis for this admission?: Yes (5) Cardiac arrest Is this a current diagnosis for this admission?: Yes (6) Cardiogenic shock Is this a current diagnosis for this admission?: Yes (7) Septic shock Is this a current diagnosis for this admission?: YesPlan: Patient condition remains critical not weanable of the ventilator, attempt at weaning off the ventilator was unsuccessful.
[2016-06-04] MEDS: MORPHINE SULFATE 10 MG/ML INJ IV PRN (21:53)
[2016-06-05] MEDS: METOCLOPRAMIDE HCL INJ/PF 10 MG/2 ML SDV IV SCH ×3 (02:24→17:12)
[2016-06-05] MEDS: IMIPENEM/CILASTATIN SODIUM 250 MG in NORMAL SALINE 100 ML IV SCH ×2 (06:03→17:13)
[2016-06-05] MEDS: PROPOFOL 100 ML IV PRN ×2 (06:03→17:11)
[2016-06-05] MEDS: HEPARIN SOD (PORCINE) 5,000 UNIT/ML 1 ML SYRINGE SUBCUT SCH ×3 (06:04→21:59)
[2016-06-05 06:10] LABS: ARTERIAL BLOOD BASE EXCESS -3.6 mmol/L; ARTERIAL BLOOD O2 SATURATION 97.9 % (94-98)
[2016-06-05 06:12] LABS: ABSOLUTE BASOPHILS # (AUTO) 0.1 10^3/uL (0.0-0.2); ABSOLUTE EOSINOPHILS # (AUTO) 0.2 10^3/uL (0.0-0.6); ABSOLUTE LYMPHOCYTES (AUTO) 1.2 10^3/uL (0.5-4.7); ABSOLUTE MONOCYTES (AUTO) 0.5 10^3/uL (0.1-1.4); ABSOLUTE NEUT (AUTO) 8.7 10^3/uL (1.7-8.2); BASOPHILS % (AUTO) 0.6 % (0-2); EOSINOPHILS % (AUTO) 1.6 % (0-6); HEMATOCRIT 31.7 % (36.0-47.0); HEMOGLOBIN 10.1 g/dL (12.0-15.5); HGB HCT DIFFERENCE -1.4; LYMPHOCYTES % (AUTO) 10.9 % (13-45); MEAN CORPUSCULAR HEMOGLOBIN 28.8 pg (27.0-33.4); MEAN CORPUSCULAR HGB CONC 31.7 g/dL (32.0-36.0); MEAN CORPUSCULAR VOLUME 91 fl (80-97); MONOCYTES % (AUTO) 4.8 % (3-13); RED BLOOD COUNT 3.49 10^6/uL (3.72-5.28); RED CELL DISTRIBUTION WIDTH 20.9 % (11.5-14.0); SEGMENTED NEUTROPHILS % (AUTO) 82.1 % (42-78); WHITE BLOOD COUNT 10.6 10^3/uL (4.0-10.5)
[2016-06-05 06:24] LABS: ANION GAP 9 (5-19); BLOOD UREA NITROGEN 22 mg/dL (7-20); CALCIUM 8.1 mg/dL (8.4-10.2); CARBON DIOXIDE 24 mmol/L (22-30); CHLORIDE 97 mmol/L (98-107); GLUCOSE 75 mg/dL (75-110); MAGNESIUM 1.4 mg/dL (1.6-2.3); PHOSPHORUS 3.9 mg/dL (2.5-4.5); POTASSIUM 3.5 mmol/L (3.6-5.0); SODIUM 130.1 mmol/L (137-145); TRIGLYCERIDES 95 mg/dL (<150)
[2016-06-05 06:38] LABS: ARTERIAL BLOOD BASE EXCESS 2.1 mmol/L; ARTERIAL BLOOD O2 SATURATION 97.9 % (94-98)
--- NOTE | 2016-06-05 09:19 | PDOC PROGRESS REPORT ---
Subjective Progress Note for:: 06/05/16 Subjective:: This is a 40-year-old female with a multiple medical problems including the respiratory failure lung cancer the lung abscess also the ends together disease on hemodialysis and multiple other comorbidity with the scleroderma and pulmonary fibrosis in a very poor prognosis remains same in ICU this without any change. 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 General appearance: PRESENT: no acute distress Eye exam: PRESENT: PERRLA Mouth exam: PRESENT: neck supple Respiratory exam: PRESENT: clear to auscultation frankie Cardiovascular exam: PRESENT: +S1, +S2 GI/Abdominal exam: PRESENT: normal bowel sounds, soft Neurological exam: PRESENT: awake Results Laboratory Results: 06/05/16 05:50 06/05/16 05:50 06/05/16 06/05/16 06/05/16 05:50 05:50 05:50 WBC 10.6 H RBC 3.49 L Hgb 10.1 L Hct 31.7 L MCV 91 MCH 28.8 MCHC 31.7 L RDW 20.9 H Plt Count 152 Seg Neutrophils % 82.1 H Lymphocytes % 10.9 L Monocytes % 4.8 Eosinophils % 1.6 Basophils % 0.6 Absolute Neutrophils 8.7 H Absolute Lymphocytes 1.2 Absolute Monocytes 0.5 Absolute Eosinophils 0.2 Absolute Basophils 0.1 Carbonic Acid 0.63 L HCO3/H2CO3 Ratio 27:1 ABG pH 7.54 H ABG pCO2 20.8 L* ABG pO2 90.0 ABG HCO3 17.4 L ABG O2 Saturation 97.9 ABG Base Excess -3.6 FiO2 30% Sodium 130.1 L Potassium 3.5 L Chloride 97 L Carbon Dioxide 24 Anion Gap 9 BUN 22 H Creatinine 2.20 H Est GFR ( Amer) 30 L Est GFR (Non-Af Amer) 24 L Glucose 75 Calcium 8.1 L Phosphorus 3.9 Magnesium 1.4 L Triglycerides 95 06/05/16 06:30 WBC RBC Hgb Hct MCV MCH MCHC RDW Plt Count Seg Neutrophils % Lymphocytes % Monocytes % Eosinophils % Basophils % Absolute Neutrophils Absolute Lymphocytes Absolute Monocytes Absolute Eosinophils Absolute Basophils Carbonic Acid 0.82 L HCO3/H2CO3 Ratio 28:1 ABG pH 7.55 H ABG pCO2 27.4 L ABG pO2 90.4 ABG HCO3 23.7 ABG O2 Saturation 97.9 ABG Base Excess 2.1 FiO2 30% Sodium Potassium Chloride Carbon Dioxide Anion Gap BUN Creatinine Est GFR ( Amer) Est GFR (Non-Af Amer) Glucose Calcium Phosphorus Magnesium Triglycerides 05/29/16 05/30/16 05/31/16 23:45 05:55 05:15 Creatine Kinase 31 CK-MB (CK-2) 1.81 1.71 Troponin I 0.069 0.094 05/31/16 05:15 Creatine Kinase CK-MB (CK-2) 1.46 Troponin I 0.079 Impressions: Chest/Abdomen CTA 05/29/16 18:00 IMPRESSION: No evidence for pulmonary embolic disease. Extensive chronic appearing changes as noted above. Small right pleural effusion is again identified which appears slightly larger than on the previous study. The previously described rounded masslike density in the right lower lobe is again identified. There is a central somewhat low density area and the possibility of a necrotic neoplasm or developing lung abscess cannot be excluded. Large pericardial effusion is again identified. Other findings as noted above Chest X-Ray 06/05/16 06:00 IMPRESSION: STABLE APPEARANCE OF THE CHEST. SUPPORT DEVICES UNCHANGED. Assessment & Plan - Diagnosis (1) Acute hypoxemic respiratory failure Is this a current diagnosis for this admission?: YesPlan: Currently intubated follow with the pulmonary and continues IV vancomycin / primaxin and the Levaquin (2) End stage renal disease Is this a current diagnosis for this admission?: YesPlan: Follow with the nephrology for dialysis (3) Lung abscess Qualifiers: Pulmonary abscess pneumonia presence: with pneumonia Laterality: right Lung location: unspecified part of lung Qualified Code(s): J85.1 - Abscess of lung with pneumonia Is this a current diagnosis for this admission?: NoPlan: 3 IV antibiotics continuous (4) Lung cancer Qualifiers: Laterality: unspecified laterality Lung location: unspecified part of lung Qualified Code(s): C34.90 - Malignant neoplasm of unspecified part of unspecified bronchus or lung Is this a current diagnosis for this admission?: YesPlan: Poor prognosis (5) Pulmonary fibrosis Is this a current diagnosis for this admission?: Yes (6) Scleroderma Is this a current diagnosis for this admission?: Yes - Time Time Spent with patient: 15-24 minutes Critical Time spent with patient: 15-24 minutes Medications reviewed and adjusted accordingly: Yes - Inpatient Certification Medical Necessity: Need Close Monitoring Due to Risk of Patient Decompensation, Need for IV Antibiotics Post Hospital Care: D/C Licensing Services Clerk Documentation - Plan Summary Plan Summary: Discussed with the family on the bedside and also review all medications and lab Patient have oral poor prognosis with the multiple comorbidity. Patient's also followed by the nephrology Dr. Alaniz also followed by the cardiology Dr. wilkinson and also followed by pulmonary
[2016-06-05] MEDS ORDERED: POTASSIUM CHLORIDE 20 MEQ/50 ML RTU IV ONE (09:30)
[2016-06-05] MEDS ORDERED: METOPROLOL SUCCINATE 25 MG TAB.SR.24H PO SCH (10:00)
[2016-06-05] MEDS ORDERED: DIGOXIN INJ 0.5 MG/2 ML AMPULE IV ONE (10:20)
[2016-06-05] MEDS: METOPROLOL TARTRATE PF/INJ 5 MG/5 ML SDV IV PRN (10:45)
[2016-06-05] MEDS: MORPHINE SULFATE 10 MG/ML INJ IV PRN ×2 (10:45→21:58)
--- NOTE | 2016-06-05 12:45 | PDOC PROGRESS REPORT ---
Subjective Progress Note for:: 06/05/16 Subjective:: Patient about the same and has made some progress. Patient remains intubated. She is actually continuing to be off vasopressors. She seems to be holding her own. Patient noted to be intermittently tachycardic. Have ordered low-dose beta blockers intravenously for intermittent tachycardia on when necessary basis. Started patient on low-dose beta antonia, LUZ inhibitor and also digoxin. Patient has been seen by manager medicare and pediatric physical therapist. Patient remains critically ill. Patient did have a follow-up echocardiogram which showed severely depressed LVEF , best estimate of EF is about 15%. In addition right ventricular ejection fraction also seems severely depressed. Moderate mitral regurgitation noted. Medications reviewed. Physical Exam Vital Signs: Temp Pulse Resp BP Pulse Ox 98.2 F 129 H 25 H 115/88 H 97 06/05/16 12:00 06/05/16 12:00 06/05/16 12:00 06/05/16 12:00 06/05/16 12:30 Intake & Output 06/04/16 06/05/16 06/06/16 06:59 06:59 06:59 Intake Total 2951 1860 Output Total 0 2100 0 Balance 2951 -240 0 Weight 63.7 kg 61.2 kg Exam: GENERAL: well-nourished and in no acute distress. Patient is intubated. She does answer some questions and moves her limbs on command. Full Orientation cannot be checked HEAD: Atraumatic, normocephalic. EYES: Pupils equal round and reactive to light, extraocular movements could not be checked, sclera anicteric, conjunctiva are normal. ENT: TMs normal, nares patent, oropharynx clear without exudates. Moist mucous membranes. No oral ulcerations or bleeding gums noted NECK: supple without lymphadenopathy or JVD. Trachea is central. No cervical or axillary lymphadenopathy noted. Carotids are 2+ LUNGS: Breath sounds mostly clear to auscultation patient is noted to have bibasal crackles at the bases right more than left. Mild dullness noted bilaterally CHEST: Palpation of the chest wall shows no significant chest wall tenderness or abnormalities. 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 ABDOMEN: Soft, no significant tenderness appreciated, normoactive bowel sounds. No guarding, no rebound. No rigidity noted . No masses appreciated. EXTREMITIES: Pedal pulses are 1-2+, no calf tenderness noted, 1+ pedal edema noted. No clubbing or cyanosis. NEUROLOGICAL: The patient cannot participate in the neurological exam but no facial asymmetry noted. Extremities slightly hypotonic. Able to move extremities PSYCH: This cannot be fully evaluated. SKIN: No significant ecchymosis, rash, or signs of pruritus noted. MUSCULOSKELETAL EXAM: No significant joint swelling noted. Patient cannot participate in musculoskeletal exam Results Laboratory Results: 06/05/16 05:50 06/05/16 05:50 06/05/16 06/05/16 06/05/16 05:50 05:50 05:50 WBC 10.6 H RBC 3.49 L Hgb 10.1 L Hct 31.7 L MCV 91 MCH 28.8 MCHC 31.7 L RDW 20.9 H Plt Count 152 Seg Neutrophils % 82.1 H Lymphocytes % 10.9 L Monocytes % 4.8 Eosinophils % 1.6 Basophils % 0.6 Absolute Neutrophils 8.7 H Absolute Lymphocytes 1.2 Absolute Monocytes 0.5 Absolute Eosinophils 0.2 Absolute Basophils 0.1 Carbonic Acid 0.63 L HCO3/H2CO3 Ratio 27:1 ABG pH 7.54 H ABG pCO2 20.8 L* ABG pO2 90.0 ABG HCO3 17.4 L ABG O2 Saturation 97.9 ABG Base Excess -3.6 FiO2 30% Sodium 130.1 L Potassium 3.5 L Chloride 97 L Carbon Dioxide 24 Anion Gap 9 BUN 22 H Creatinine 2.20 H Est GFR ( Amer) 30 L Est GFR (Non-Af Amer) 24 L Glucose 75 Calcium 8.1 L Phosphorus 3.9 Magnesium 1.4 L Triglycerides 95 06/05/16 06:30 WBC RBC Hgb Hct MCV MCH MCHC RDW Plt Count Seg Neutrophils % Lymphocytes % Monocytes % Eosinophils % Basophils % Absolute Neutrophils Absolute Lymphocytes Absolute Monocytes Absolute Eosinophils Absolute Basophils Carbonic Acid 0.82 L HCO3/H2CO3 Ratio 28:1 ABG pH 7.55 H ABG pCO2 27.4 L ABG pO2 90.4 ABG HCO3 23.7 ABG O2 Saturation 97.9 ABG Base Excess 2.1 FiO2 30% Sodium Potassium Chloride Carbon Dioxide Anion Gap BUN Creatinine Est GFR ( Amer) Est GFR (Non-Af Amer) Glucose Calcium Phosphorus Magnesium Triglycerides 05/29/16 05/30/16 05/31/16 23:45 05:55 05:15 Creatine Kinase 31 CK-MB (CK-2) 1.81 1.71 Troponin I 0.069 0.094 05/31/16 05:15 Creatine Kinase CK-MB (CK-2) 1.46 Troponin I 0.079 Impressions: Chest/Abdomen CTA 05/29/16 18:00 IMPRESSION: No evidence for pulmonary embolic disease. Extensive chronic appearing changes as noted above. Small right pleural effusion is again identified which appears slightly larger than on the previous study. The previously described rounded masslike density in the right lower lobe is again identified. There is a central somewhat low density area and the possibility of a necrotic neoplasm or developing lung abscess cannot be excluded. Large pericardial effusion is again identified. Other findings as noted above Chest X-Ray 06/05/16 06:00 IMPRESSION: STABLE APPEARANCE OF THE CHEST. SUPPORT DEVICES UNCHANGED. Assessment & Plan - Diagnosis (1) Cardiac arrest Is this a current diagnosis for this admission?: Yes (2) Acute hypoxemic respiratory failure Is this a current diagnosis for this admission?: Yes (3) End stage renal disease Is this a current diagnosis for this admission?: Yes (4) Lung cancer Qualifiers: Laterality: unspecified laterality Lung location: unspecified part of lung Qualified Code(s): C34.90 - Malignant neoplasm of unspecified part of unspecified bronchus or lung Is this a current diagnosis for this admission?: Yes (5) Septic shock Is this a current diagnosis for this admission?: Yes (6) Pulmonary fibrosis Is this a current diagnosis for this admission?: Yes (7) Scleroderma Is this a current diagnosis for this admission?: Yes (8) Cardiomyopathy Qualifiers: Cardiomyopathy type: unspecified Qualified Code(s): I42.9 - Cardiomyopathy, unspecified Is this a current diagnosis for this admission?: Yes (9) Hypotension Qualifiers: Hypotension type: other hypotension type Qualified Code(s): I95.89 - Other hypotension Is this a current diagnosis for this admission?: Yes - Notes Notes: Patient's remains critically ill. She has multiple reversible medical condition including lung cancer, pulmonary fibrosis and scleroderma. She also has end-stage renal disease. Patient's family wants her full code. They had also declined transfer to tertiary care. Any resuscitation likely to be futile. Patient However shown some gradual improvement. We will optimize therapy for underlying severe cardiomyopathy. In this regard have started patient on digoxin, one dose of 0.125 mg by mouth, to be given by weekly or every other day. Patient also being started on Ramipril 0.125 mg by mouth daily and carvedilol 3.125 mg by mouth twice a day. Continue other supportive care. Patient's overall prognosis is poor. Discussed with Dr. Maxwell and nurses. - Time Time with patient: Greater than 35 minutes - CODE STATUS was discussed, patient remains full code. Surrogate decision-maker unchanged. Multiple medical problems were addressed.More than 50% of the time spent coordinating care, discussing management plans with involved caregivers. Management plans discussed with involved personnels. Medical decision making was of moderate complexity. Medications reviewed and adjusted accordingly: Yes
[2016-06-05] MEDS ORDERED: RAMIPRIL 1.25 MG CAPSULE NG ONE (14:00)
[2016-06-05] MEDS ORDERED: CARVEDILOL 3.125 MG TABLET NG ONE (14:00)
--- NOTE | 2016-06-05 15:15 | PDOC PROGRESS REPORT ---
Subjective Progress Note for:: 06/04/16 Subjective:: Intubated and sedated Physical Exam Vital Signs: Temp Pulse Resp BP Pulse Ox 97.9 F 95 25 H 106/61 100 06/04/16 08:00 06/04/16 08:00 06/04/16 08:00 06/04/16 08:00 06/04/16 08:00 Intake & Output 06/03/16 06/04/16 06/05/16 06:59 06:59 06:59 Intake Total 3311 2951 Output Total 2001 0 0 Balance 1309 2951 0 Weight 60.8 kg 63.7 kg General appearance: PRESENT: no acute distress, other - cachectic Head exam: PRESENT: atraumatic, normocephalic Eye exam: PRESENT: conjunctiva pale Mouth exam: PRESENT: dry mucosa, neck supple, other - ET tube Neck exam: ABSENT: carotid bruit, JVD, lymphadenopathy, thyromegaly Respiratory exam: PRESENT: decreased breath sounds, prolonged expiratory phas, rales, rhonchi, symmetrical, unlabored Cardiovascular exam: PRESENT: RRR, +S1, +S2 Pulses: PRESENT: normal radial pulses GI/Abdominal exam: PRESENT: normal bowel sounds, soft. ABSENT: distended, guarding, mass, organolmegaly, rebound, tenderness Rectal exam: PRESENT: deferred Gentrourinary exam: PRESENT: indwelling catheter Musculoskeletal exam: PRESENT: normal inspection Skin exam: PRESENT: dry, warm Results Laboratory Results: 06/04/16 05:40 06/04/16 05:40 06/04/16 06/04/16 06/04/16 05:40 05:40 05:40 WBC 11.1 H RBC 3.52 L Hgb 10.2 L Hct 32.0 L MCV 91 MCH 28.9 MCHC 31.8 L RDW 20.7 H Plt Count 172 Seg Neutrophils % 84.9 H Lymphocytes % 7.5 L Monocytes % 5.4 Eosinophils % 1.6 Basophils % 0.6 Absolute Neutrophils 9.4 H Absolute Lymphocytes 0.8 Absolute Monocytes 0.6 Absolute Eosinophils 0.2 Absolute Basophils 0.1 Carbonic Acid 0.92 L HCO3/H2CO3 Ratio 22:1 ABG pH 7.45 ABG pCO2 30.5 L ABG pO2 94.6 ABG HCO3 20.9 ABG O2 Saturation 97.6 ABG Base Excess -2.1 FiO2 30% Sodium 128.8 L Potassium 3.7 Chloride 99 Carbon Dioxide 17 L Anion Gap 13 BUN 28 H Creatinine 2.75 H Est GFR ( Amer) 23 L Est GFR (Non-Af Amer) 19 L Glucose 88 Calcium 8.0 L Magnesium 1.5 L 06/01/16 10:35 Tracheal Aspirate Gram Stain - Final 06/01/16 10:35 Tracheal Aspirate Sputum Culture - Final C.albicans/C.dubliniensis Reduced Normal Soraya 05/29/16 05/30/16 05/31/16 23:45 05:55 05:15 Creatine Kinase 31 CK-MB (CK-2) 1.81 1.71 Troponin I 0.069 0.094 05/31/16 05:15 Creatine Kinase CK-MB (CK-2) 1.46 Troponin I 0.079 Impressions: Chest/Abdomen CTA 05/29/16 18:00 IMPRESSION: No evidence for pulmonary embolic disease. Extensive chronic appearing changes as noted above. Small right pleural effusion is again identified which appears slightly larger than on the previous study. The previously described rounded masslike density in the right lower lobe is again identified. There is a central somewhat low density area and the possibility of a necrotic neoplasm or developing lung abscess cannot be excluded. Large pericardial effusion is again identified. Other findings as noted above Assessment & Plan - Diagnosis (1) Acute hypoxemic respiratory failure Is this a current diagnosis for this admission?: YesPlan: Oxygenating well with adequate ventilation (2) End stage renal disease Is this a current diagnosis for this admission?: YesPlan: Improving creatinine and BUN (3) Lung abscess Qualifiers: Pulmonary abscess pneumonia presence: with pneumonia Laterality: right Lung location: unspecified part of lung Qualified Code(s): J85.1 - Abscess of lung with pneumonia Is this a current diagnosis for this admission?: No (4) Lung cancer Qualifiers: Laterality: unspecified laterality Lung location: unspecified part of lung Qualified Code(s): C34.90 - Malignant neoplasm of unspecified part of unspecified bronchus or lung Is this a current diagnosis for this admission?: YesPlan: diagnosed 3b [facility] cancer - Time Critical Time spent with patient: 35 or more minutes
--- NOTE | 2016-06-05 15:20 | PDOC PROGRESS REPORT ---
Subjective Subjective:: Intubated and arousable Physical Exam Vital Signs: Temp Pulse Resp BP Pulse Ox 98.2 F 129 H 28 H 82/65 L 97 06/05/16 12:00 06/05/16 14:00 06/05/16 14:00 06/05/16 15:00 06/05/16 15:01 Intake & Output 06/04/16 06/05/16 06/06/16 06:59 06:59 06:59 Intake Total 2951 1860 Output Total 0 2100 0 Balance 2951 -240 0 Weight 63.7 kg 61.2 kg General appearance: PRESENT: no acute distress, disheveled, other - cachectic Head exam: PRESENT: atraumatic, normocephalic Eye exam: PRESENT: conjunctiva pale, EOMI Mouth exam: PRESENT: other - ET tube Neck exam: ABSENT: carotid bruit, JVD, lymphadenopathy, thyromegaly Respiratory exam: PRESENT: decreased breath sounds, prolonged expiratory phas, rales, rhonchi, symmetrical, unlabored Cardiovascular exam: PRESENT: RRR, +S1, +S2 Pulses: PRESENT: normal radial pulses GI/Abdominal exam: PRESENT: normal bowel sounds, soft. ABSENT: distended, guarding, mass, organolmegaly, rebound, tenderness Rectal exam: PRESENT: deferred Gentrourinary exam: PRESENT: indwelling catheter Musculoskeletal exam: PRESENT: normal inspection Neurological exam: PRESENT: awake Skin exam: PRESENT: dry, warm Results Laboratory Results: 06/05/16 05:50 06/05/16 05:50 06/05/16 06/05/16 06/05/16 05:50 05:50 05:50 WBC 10.6 H RBC 3.49 L Hgb 10.1 L Hct 31.7 L MCV 91 MCH 28.8 MCHC 31.7 L RDW 20.9 H Plt Count 152 Seg Neutrophils % 82.1 H Lymphocytes % 10.9 L Monocytes % 4.8 Eosinophils % 1.6 Basophils % 0.6 Absolute Neutrophils 8.7 H Absolute Lymphocytes 1.2 Absolute Monocytes 0.5 Absolute Eosinophils 0.2 Absolute Basophils 0.1 Carbonic Acid 0.63 L HCO3/H2CO3 Ratio 27:1 ABG pH 7.54 H ABG pCO2 20.8 L* ABG pO2 90.0 ABG HCO3 17.4 L ABG O2 Saturation 97.9 ABG Base Excess -3.6 FiO2 30% Sodium 130.1 L Potassium 3.5 L Chloride 97 L Carbon Dioxide 24 Anion Gap 9 BUN 22 H Creatinine 2.20 H Est GFR ( Amer) 30 L Est GFR (Non-Af Amer) 24 L Glucose 75 Calcium 8.1 L Phosphorus 3.9 Magnesium 1.4 L Triglycerides 95 06/05/16 06:30 WBC RBC Hgb Hct MCV MCH MCHC RDW Plt Count Seg Neutrophils % Lymphocytes % Monocytes % Eosinophils % Basophils % Absolute Neutrophils Absolute Lymphocytes Absolute Monocytes Absolute Eosinophils Absolute Basophils Carbonic Acid 0.82 L HCO3/H2CO3 Ratio 28:1 ABG pH 7.55 H ABG pCO2 27.4 L ABG pO2 90.4 ABG HCO3 23.7 ABG O2 Saturation 97.9 ABG Base Excess 2.1 FiO2 30% Sodium Potassium Chloride Carbon Dioxide Anion Gap BUN Creatinine Est GFR ( Amer) Est GFR (Non-Af Amer) Glucose Calcium Phosphorus Magnesium Triglycerides 06/02/16 10:10 Chest - Not Specified Gram Stain - Final 06/02/16 10:10 Chest - Not Specified Wound Culture - Final NO GROWTH 3 DAYS 05/29/16 05/30/16 05/31/16 23:45 05:55 05:15 Creatine Kinase 31 CK-MB (CK-2) 1.81 1.71 Troponin I 0.069 0.094 05/31/16 05:15 Creatine Kinase CK-MB (CK-2) 1.46 Troponin I 0.079 Impressions: Chest/Abdomen CTA 05/29/16 18:00 IMPRESSION: No evidence for pulmonary embolic disease. Extensive chronic appearing changes as noted above. Small right pleural effusion is again identified which appears slightly larger than on the previous study. The previously described rounded masslike density in the right lower lobe is again identified. There is a central somewhat low density area and the possibility of a necrotic neoplasm or developing lung abscess cannot be excluded. Large pericardial effusion is again identified. Other findings as noted above Chest X-Ray 06/05/16 06:00 IMPRESSION: STABLE APPEARANCE OF THE CHEST. SUPPORT DEVICES UNCHANGED. Assessment & Plan - Diagnosis (1) Acute hypoxemic respiratory failure Is this a current diagnosis for this admission?: YesPlan: improving (2) End stage renal disease Is this a current diagnosis for this admission?: Yes (3) Lung abscess Qualifiers: Pulmonary abscess pneumonia presence: with pneumonia Laterality: right Lung location: unspecified part of lung Qualified Code(s): J85.1 - Abscess of lung with pneumonia Is this a current diagnosis for this admission?: No (4) Lung cancer Qualifiers: Laterality: unspecified laterality Lung location: unspecified part of lung Qualified Code(s): C34.90 - Malignant neoplasm of unspecified part of unspecified bronchus or lung Is this a current diagnosis for this admission?: YesPlan: diagnosed 3b [facility] cancer - Time Critical Time spent with patient: 35 or more minutes - 75 min extended talk with spouse regarding disease processes prognosis and possible alternative paths for care
[2016-06-05] MEDS: DEXTROSE 50%-WATER SYRINGE 25 GM/50 ML DOSE IV PRN (17:10)
[2016-06-05] MEDS: DEXTROSE 10%-WATER 1,000 ML IV PRN (17:34)
[2016-06-05] MEDS: CARVEDILOL 3.125 MG TABLET NG SCH (21:59)
[2016-06-06] MEDS: METOCLOPRAMIDE HCL INJ/PF 10 MG/2 ML SDV IV SCH ×3 (01:37→17:04)
[2016-06-06] MEDS: MORPHINE SULFATE 10 MG/ML INJ IV PRN ×4 (01:37→22:31)
[2016-06-06] MEDS: HEPARIN SOD (PORCINE) 5,000 UNIT/ML 1 ML SYRINGE SUBCUT SCH ×2 (05:00→13:04)
[2016-06-06] MEDS: IMIPENEM/CILASTATIN SODIUM 250 MG in NORMAL SALINE 100 ML IV SCH ×2 (05:00→17:04)
[2016-06-06] MEDS: DEXTROSE 10%-WATER 1,000 ML IV PRN (05:01)
[2016-06-06 05:35] LABS: ARTERIAL BLOOD BASE EXCESS 0.1 mmol/L; ARTERIAL BLOOD O2 SATURATION 97.9 % (94-98)
[2016-06-06 05:48] LABS: ANION GAP 10 (5-19); BLOOD UREA NITROGEN 27 mg/dL (7-20); CALCIUM 7.9 mg/dL (8.4-10.2); CARBON DIOXIDE 22 mmol/L (22-30); CHLORIDE 97 mmol/L (98-107); CREATININE RESULT 2.77 mg/dL (0.52-1.25); GLUCOSE 82 mg/dL (75-110); POTASSIUM 3.8 mmol/L (3.6-5.0)
--- NOTE | 2016-06-06 09:00 | PDOC PROGRESS REPORT ---
Subjective Progress Note for:: 06/06/16 Subjective:: Patient is doing same. Patient still intubated. Family is on the bedside. Patient have issue with the swelling in the femoral line and jerry . Physical Exam Vital Signs: Temp Pulse Resp BP Pulse Ox 98.1 F 91 25 H 137/80 H 100 06/06/16 08:00 06/06/16 08:00 06/06/16 08:00 06/06/16 08:00 06/06/16 08:00 Intake & Output 06/05/16 06/06/16 06/07/16 06:59 06:59 06:59 Intake Total 1860 194 Output Total 2100 1 Balance -240 194 Weight 61.2 kg 61.3 kg General appearance: PRESENT: no acute distress Eye exam: PRESENT: PERRLA Mouth exam: PRESENT: neck supple Respiratory exam: PRESENT: clear to auscultation frankie Cardiovascular exam: PRESENT: +S1, +S2 GI/Abdominal exam: PRESENT: normal bowel sounds, soft Extremities exam: ABSENT: pedal edema Neurological exam: PRESENT: awake Additional comments: Still under intubation Skin exam: PRESENT: dry Results Laboratory Results: 06/05/16 05:50 06/06/16 05:15 06/06/16 06/06/16 05:15 05:15 Carbonic Acid 0.91 L HCO3/H2CO3 Ratio 24:1 ABG pH 7.49 H ABG pCO2 30.2 L ABG pO2 95.6 ABG HCO3 22.7 ABG O2 Saturation 97.9 ABG Base Excess 0.1 FiO2 30% Sodium 129.0 L Potassium 3.8 Chloride 97 L Carbon Dioxide 22 Anion Gap 10 BUN 27 H Creatinine 2.77 H Est GFR ( Amer) 23 L Est GFR (Non-Af Amer) 19 L Glucose 82 Calcium 7.9 L 06/02/16 10:10 Chest - Not Specified Gram Stain - Final 06/02/16 10:10 Chest - Not Specified Wound Culture - Final NO GROWTH 3 DAYS 05/29/16 05/30/16 05/31/16 23:45 05:55 05:15 Creatine Kinase 31 CK-MB (CK-2) 1.81 1.71 Troponin I 0.069 0.094 05/31/16 05:15 Creatine Kinase CK-MB (CK-2) 1.46 Troponin I 0.079 Impressions: Chest/Abdomen CTA 05/29/16 18:00 IMPRESSION: No evidence for pulmonary embolic disease. Extensive chronic appearing changes as noted above. Small right pleural effusion is again identified which appears slightly larger than on the previous study. The previously described rounded masslike density in the right lower lobe is again identified. There is a central somewhat low density area and the possibility of a necrotic neoplasm or developing lung abscess cannot be excluded. Large pericardial effusion is again identified. Other findings as noted above Chest X-Ray 06/05/16 06:00 IMPRESSION: STABLE APPEARANCE OF THE CHEST. SUPPORT DEVICES UNCHANGED. Assessment & Plan - Diagnosis (1) Acute hypoxemic respiratory failure Is this a current diagnosis for this admission?: YesPlan: Currently intubated follow with the pulmonary and continues IV vancomycin / primaxin and the Levaquin (2) End stage renal disease Is this a current diagnosis for this admission?: YesPlan: Follow with the nephrology for dialysis (3) Lung abscess Qualifiers: Pulmonary abscess pneumonia presence: with pneumonia Laterality: right Lung location: unspecified part of lung Qualified Code(s): J85.1 - Abscess of lung with pneumonia Is this a current diagnosis for this admission?: NoPlan: 3 IV antibiotics continuous (4) Lung cancer Qualifiers: Laterality: unspecified laterality Lung location: unspecified part of lung Qualified Code(s): C34.90 - Malignant neoplasm of unspecified part of unspecified bronchus or lung Is this a current diagnosis for this admission?: YesPlan: Poor prognosis (5) Pulmonary fibrosis Is this a current diagnosis for this admission?: Yes (6) Scleroderma Is this a current diagnosis for this admission?: YesPlan: Symptoms current medication - Time Time Spent with patient: 15-24 minutes Critical Time spent with patient: 15-24 minutes Medications reviewed and adjusted accordingly: Yes Anticipated discharge: Other Within: Other - Inpatient Certification Medical Necessity: Need Close Monitoring Due to Risk of Patient Decompensation, Need for IV Antibiotics 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 Continues the current medication discuss with the family on the bedside about patient's poor prognosis. continue the current IV antibiotic
[2016-06-06] MEDS ORDERED: RAMIPRIL 1.25 MG CAPSULE PO SCH (10:00)
[2016-06-06] MEDS: GENTAMICIN SULFATE 0.1% CREAM 15 GM TP SCH (10:04)
[2016-06-06] MEDS: CARVEDILOL 3.125 MG TABLET NG SCH ×2 (10:05→22:23)
[2016-06-06 10:39] LABS: HEPATITIS C QUANTITATION HCV Not Detected IU/mL (.)
[2016-06-06] MEDS: PROPOFOL 100 ML IV PRN (13:05)
--- NOTE | 2016-06-06 17:18 | PDOC PROGRESS REPORT ---
Subjective Progress Note for:: 06/06/16 Subjective:: Patient has made some progress. Patient remains intubated. Patient is much more responsive and is alert. Patient noted to be intermittently tachycardic. Have ordered low-dose beta blockers intravenously for intermittent tachycardia on when necessary basis. Started patient on low-dose beta antonia, LUZ inhibitor and also digoxin yesterday. Today have increased the dose of LUZ inhibitor's Patient has been seen by room service supervisor and security tech. Patient remains critically ill. Patient did have a follow-up echocardiogram which showed severely depressed LVEF , best estimate of EF is about 15%. In addition right ventricular ejection fraction also seems severely depressed. Moderate mitral regurgitation noted. Patient's room service supervisor once to take out the peritoneal dialysis catheter. Medications reviewed. Physical Exam Vital Signs: Temp Pulse Resp BP Pulse Ox 98.2 F 94 12 118/77 97 06/06/16 16:00 06/06/16 16:00 06/06/16 16:00 06/06/16 16:00 06/06/16 16:00 Intake & Output 06/05/16 06/06/16 06/07/16 06:59 06:59 06:59 Intake Total 1860 1948 Output Total 2100 1 275 Balance -240 1947 -275 Weight 61.2 kg 61.3 kg Exam: GENERAL: well-nourished and in no acute distress. Patient is intubated, orientation cannot be checked but patient responds appropriately. HEAD: Atraumatic, normocephalic. EYES: Pupils equal round and reactive to light, extraocular movements could not be checked, sclera anicteric, conjunctiva are normal. ENT: TMs normal, nares patent, oropharynx clear without exudates. Moist mucous membranes. No oral ulcerations or bleeding gums noted NECK: supple without lymphadenopathy or JVD. Trachea is central. No cervical or axillary lymphadenopathy noted. Carotids are 2+ LUNGS: Breath sounds mostly clear to auscultation patient is noted to have bibasal crackles at the both bases along with bilateral mild dullness. CHEST: Palpation of the chest wall shows no significant chest wall tenderness or abnormalities. HEART: [place] MET[employer] SUPERINTENDENT, No PSH, 2/6 JACQUES aortic area, 1/6 brewer systolic murmur mitral area , S3 or S4 gallop noted today. ABDOMEN: Soft, no significant tenderness appreciated, normoactive bowel sounds. No guarding, no rebound. No rigidity noted . No masses appreciated. EXTREMITIES: Pedal pulses are 1-2+, no calf tenderness noted, 1+ pedal edema noted. No clubbing or cyanosis. NEUROLOGICAL: The patient cannot participate in the neurological exam but no facial asymmetry noted. Extremities slightly hypotonic PSYCH: This cannot be evaluated. Patient cannot participate. SKIN: No significant ecchymosis, rash, or signs of pruritus noted. MUSCULOSKELETAL EXAM: No significant joint swelling noted. Patient cannot participate in musculoskeletal exam Results Laboratory Results: 06/05/16 05:50 06/06/16 05:15 06/06/16 06/06/16 05:15 05:15 Carbonic Acid 0.91 L HCO3/H2CO3 Ratio 24:1 ABG pH 7.49 H ABG pCO2 30.2 L ABG pO2 95.6 ABG HCO3 22.7 ABG O2 Saturation 97.9 ABG Base Excess 0.1 FiO2 30% Sodium 129.0 L Potassium 3.8 Chloride 97 L Carbon Dioxide 22 Anion Gap 10 BUN 27 H Creatinine 2.77 H Est GFR ( Amer) 23 L Est GFR (Non-Af Amer) 19 L Glucose 82 Calcium 7.9 L 06/02/16 10:10 Chest - Not Specified Gram Stain - Final 06/02/16 10:10 Chest - Not Specified Wound Culture - Final NO GROWTH 3 DAYS 05/29/16 05/30/16 05/31/16 23:45 05:55 05:15 Creatine Kinase 31 CK-MB (CK-2) 1.81 1.71 Troponin I 0.069 0.094 05/31/16 05:15 Creatine Kinase CK-MB (CK-2) 1.46 Troponin I 0.079 Impressions: Chest/Abdomen CTA 05/29/16 18:00 IMPRESSION: No evidence for pulmonary embolic disease. Extensive chronic appearing changes as noted above. Small right pleural effusion is again identified which appears slightly larger than on the previous study. The previously described rounded masslike density in the right lower lobe is again identified. There is a central somewhat low density area and the possibility of a necrotic neoplasm or developing lung abscess cannot be excluded. Large pericardial effusion is again identified. Other findings as noted above Chest X-Ray 06/05/16 06:00 IMPRESSION: STABLE APPEARANCE OF THE CHEST. SUPPORT DEVICES UNCHANGED. Assessment & Plan - Diagnosis (1) Cardiac arrest Is this a current diagnosis for this admission?: Yes (2) Acute hypoxemic respiratory failure Is this a current diagnosis for this admission?: Yes (3) End stage renal disease Is this a current diagnosis for this admission?: Yes (4) Lung cancer Qualifiers: Laterality: unspecified laterality Lung location: unspecified part of lung Qualified Code(s): C34.90 - Malignant neoplasm of unspecified part of unspecified bronchus or lung Is this a current diagnosis for this admission?: Yes (5) Septic shock Is this a current diagnosis for this admission?: Yes (6) Pulmonary fibrosis Is this a current diagnosis for this admission?: Yes (7) Scleroderma Is this a current diagnosis for this admission?: Yes (8) Cardiomyopathy Qualifiers: Cardiomyopathy type: unspecified Qualified Code(s): I42.9 - Cardiomyopathy, unspecified Is this a current diagnosis for this admission?: Yes (9) Hypotension Qualifiers: Hypotension type: other hypotension type Qualified Code(s): I95.89 - Other hypotension Is this a current diagnosis for this admission?: Yes - Notes Notes: Patient remains severely ill with multiple severe systemic problems. Patient however has been stable for last several days. I feel that she is going to be as well as she can be with very little room for further improvement. I feel the surgeons/room service supervisor can proceed with removal of peritoneal dialysis catheter while she is on the ventilator. Any procedure would be considered towards high risk and patient is basically living from hour to hour. Patient has potential to decompensate any time. I am gradually optimizing her cardiac meds. Please feel free to call me. Dr. Joyce to cover from tomorrow. - Time Time with patient: Greater than 35 minutes - CODE STATUS was discussed, patient remains full code. Surrogate decision-maker unchanged. Multiple medical problems were addressed.More than 50% of the time spent coordinating care, discussing management plans with involved caregivers. Management plans discussed with involved personnels. Medical decision making was of moderate complexity.
--- NOTE | 2016-06-06 17:51 | PDOC PROGRESS REPORT ---
Subjective Progress Note for:: 06/06/16 Subjective:: Intubated and arousable Physical Exam Vital Signs: Temp Pulse Resp BP Pulse Ox 98.2 F 94 12 118/77 98 06/06/16 16:00 06/06/16 16:00 06/06/16 16:00 06/06/16 16:00 06/06/16 16:20 Intake & Output 06/05/16 06/06/16 06/07/16 06:59 06:59 06:59 Intake Total 1860 1947 1001 Output Total 2100 1 275 Balance -240 1946 726 Weight 61.2 kg 61.3 kg General appearance: PRESENT: no acute distress, disheveled, thin Head exam: PRESENT: atraumatic, normocephalic Eye exam: PRESENT: conjunctiva pale Mouth exam: PRESENT: neck supple, other - ET tube Neck exam: ABSENT: carotid bruit, JVD, lymphadenopathy, thyromegaly Respiratory exam: PRESENT: decreased breath sounds, prolonged expiratory phas, rales, rhonchi, symmetrical, unlabored Cardiovascular exam: PRESENT: RRR, +S1, +S2 Pulses: PRESENT: normal radial pulses GI/Abdominal exam: PRESENT: normal bowel sounds, soft, other - PD cath. ABSENT : distended, guarding, mass, organolmegaly, rebound, tenderness Rectal exam: PRESENT: deferred Gentrourinary exam: PRESENT: indwelling catheter Musculoskeletal exam: PRESENT: normal inspection Skin exam: PRESENT: dry, warm Results Laboratory Results: 06/05/16 05:50 06/06/16 05:15 06/06/16 06/06/16 05:15 05:15 Carbonic Acid 0.91 L HCO3/H2CO3 Ratio 24:1 ABG pH 7.49 H ABG pCO2 30.2 L ABG pO2 95.6 ABG HCO3 22.7 ABG O2 Saturation 97.9 ABG Base Excess 0.1 FiO2 30% Sodium 129.0 L Potassium 3.8 Chloride 97 L Carbon Dioxide 22 Anion Gap 10 BUN 27 H Creatinine 2.77 H Est GFR ( Amer) 23 L Est GFR (Non-Af Amer) 19 L Glucose 82 Calcium 7.9 L 06/02/16 10:10 Chest - Not Specified Gram Stain - Final 06/02/16 10:10 Chest - Not Specified Wound Culture - Final NO GROWTH 3 DAYS 05/29/16 05/30/16 05/31/16 23:45 05:55 05:15 Creatine Kinase 31 CK-MB (CK-2) 1.81 1.71 Troponin I 0.069 0.094 05/31/16 05:15 Creatine Kinase CK-MB (CK-2) 1.46 Troponin I 0.079 Impressions: Chest/Abdomen CTA 05/29/16 18:00 IMPRESSION: No evidence for pulmonary embolic disease. Extensive chronic appearing changes as noted above. Small right pleural effusion is again identified which appears slightly larger than on the previous study. The previously described rounded masslike density in the right lower lobe is again identified. There is a central somewhat low density area and the possibility of a necrotic neoplasm or developing lung abscess cannot be excluded. Large pericardial effusion is again identified. Other findings as noted above Chest X-Ray 06/05/16 06:00 IMPRESSION: STABLE APPEARANCE OF THE CHEST. SUPPORT DEVICES UNCHANGED. Assessment & Plan - Diagnosis (1) Acute hypoxemic respiratory failure Is this a current diagnosis for this admission?: YesPlan: improving awaiting to seee if patient willgo to OR (2) End stage renal disease Is this a current diagnosis for this admission?: Yes (3) Lung abscess Qualifiers: Pulmonary abscess pneumonia presence: with pneumonia Laterality: right Lung location: unspecified part of lung Qualified Code(s): J85.1 - Abscess of lung with pneumonia Is this a current diagnosis for this admission?: No (4) Lung cancer Qualifiers: Laterality: unspecified laterality Lung location: unspecified part of lung Qualified Code(s): C34.90 - Malignant neoplasm of unspecified part of unspecified bronchus or lung Is this a current diagnosis for this admission?: Yes - Time Critical Time spent with patient: 35 or more minutes - talked with spouse x 20 min---->55min
[2016-06-06] MEDS: RAMIPRIL 1.25 MG CAPSULE PO SCH (22:23)
[2016-06-07] MEDS: DEXTROSE 10%-WATER 1,000 ML IV PRN ×2 (00:01→19:43)
[2016-06-07] MEDS: PROPOFOL 100 ML IV PRN ×2 (00:01→19:02)
[2016-06-07] MEDS: METOCLOPRAMIDE HCL INJ/PF 10 MG/2 ML SDV IV SCH ×3 (02:31→18:00)
[2016-06-07] MEDS: IMIPENEM/CILASTATIN SODIUM 250 MG in NORMAL SALINE 100 ML IV SCH ×2 (05:28→18:00)
[2016-06-07] MEDS: HEPARIN SOD (PORCINE) 5,000 UNIT/ML 1 ML SYRINGE SUBCUT SCH ×3 (05:28→21:43)
[2016-06-07 06:03] LABS: ARTERIAL BLOOD BASE EXCESS -1.7 mmol/L; ARTERIAL BLOOD O2 SATURATION 96.4 % (94-98)
[2016-06-07 06:10] LABS: PROTHROMBIN TIME 16.1 SEC (11.4-15.4)
[2016-06-07 06:12] LABS: ANION GAP 10 (5-19); BLOOD UREA NITROGEN 30 mg/dL (7-20); CALCIUM 8.1 mg/dL (8.4-10.2); CARBON DIOXIDE 21 mmol/L (22-30); CHLORIDE 95 mmol/L (98-107); CREATININE RESULT 3.17 mg/dL (0.52-1.25); GLUCOSE 96 mg/dL (75-110); MAGNESIUM 1.5 mg/dL (1.6-2.3); POTASSIUM 3.8 mmol/L (3.6-5.0)
[2016-06-07 06:19] LABS: HEMATOCRIT 27.9 % (36.0-47.0); HEMOGLOBIN 9.1 g/dL (12.0-15.5); HGB HCT DIFFERENCE -0.6; MEAN CORPUSCULAR HEMOGLOBIN 29.4 pg (27.0-33.4); MEAN CORPUSCULAR HGB CONC 32.5 g/dL (32.0-36.0); MEAN CORPUSCULAR VOLUME 90 fl (80-97); RED BLOOD COUNT 3.08 10^6/uL (3.72-5.28); RED CELL DISTRIBUTION WIDTH 19.5 % (11.5-14.0); WHITE BLOOD COUNT 9.1 10^3/uL (4.0-10.5)
[2016-06-07 07:36] LABS: BAND NEUTROPHILS % (MANUAL) 3 % (3-5); BASOPHILS % (MANUAL) 0 % (0-2); EOSINOPHILS % (MANUAL) 1 % (0-6); LYMPHOCYTES % (MANUAL) 12 % (13-45); TOTAL CELLS COUNTED 100
[2016-06-07 07:37] LABS: ANISOCYTOSIS 2+; OVALOCYTES 2+; POIKILOCYTOSIS 2+; ROULEAUX 1+; TEAR DROP CELLS SLIGHT
[2016-06-07] MEDS ORDERED: HEPARIN SOD (PORCINE) 1,000 UNIT/ML 10 ML VIAL IV PRN (10:25)
[2016-06-07] MEDS ORDERED: EPOETIN ALFA 10,000 UNIT in SYRINGE, DISPOSABLE, 1 EACH IV PRN (10:26)
[2016-06-07] MEDS: DEXTROSE 50%-WATER SYRINGE 25 GM/50 ML DOSE IV PRN (12:50)
[2016-06-07] MEDS: CARVEDILOL 3.125 MG TABLET NG SCH ×2 (13:04→21:43)
[2016-06-07] MEDS: MAGNESIUM SULFATE 1 GM/D5W 100 ML IV SCH ×2 (13:05→14:42)
[2016-06-07] MEDS: LEVOFLOXACIN 500 MG/D5W RTU 500 MG/100 ML RTUPB IV SCH (13:05)
[2016-06-07] MEDS: GENTAMICIN SULFATE 0.1% CREAM 15 GM TP SCH (13:06)
[2016-06-07] MEDS ORDERED: MIDAZOLAM 2 MG/2 ML INJ ONE (13:16)
[2016-06-07] MEDS ORDERED: FENTANYL CITRATE INJ/PF 100 MCG/2 ML AMPUL ONE (13:16)
[2016-06-07] MEDS ORDERED: PROPOFOL INJ 200 MG/20 ML VIAL IV ONE (13:17)
--- NOTE | 2016-06-07 13:18 | CONSULTATION REPORT E ---
Consultation Report NAME: FELISA MILES : 1975 AGE: 40Y DATE: 06/07/2016 ROOM: 608 A TO: MARTHA BLAKE M.D. FROM: JORGE ALBERTO GARZA M.D. Requesting Physician HISTORY OF PRESENT ILLNESS: Thank you for asking me to see this unfortunate 40-year-old female who is currently intubated on light IV sedation in the ICU. I was requested to see this patient for removal of peritoneal dialysis catheter. The patient is currently suffering from end-stage renal disease and she is on hemodialysis via percutaneous tunnel catheter, and I have been requested to remove the peritoneal dialysis catheter. PAST MEDICAL HISTORY: Past medical history is significant and is listed in the medical chart, includin. End-stage renal disease. 2. Pulmonary fibrosis. 3. Lung cancer. 4. Pneumonia. 5. Cor pulmonale. 6. Hypercalcemia. 7. Hypertension. 8. Syncopal episode. 9. Respiratory failure. 10. Multiple episodes of cardiac arrest and septic shock. ALLERGIES: The patient is allergic to SHELLFISH. MEDICATIONS: A long list of medications is present in the chart, includin. Carvedilol. 2. Epoetin. 3. Heparin 5,000 units subcutaneously, currently on hold. 4. Imipenem 250 mg p.o. q. 12. 5. Insulin sliding scale, as per power distribution engineer. 6. Levaquin 500 mg IV q. 2 days. 7. Reglan 10 mg p.r.n. IV q. 8 sodium, vomiting. 8. Metoprolol 2.5 mg IV q. 4. 9. Morphine 2 mg IV q. 2. 10. Propofol IV drip as per power distribution engineer. 11. Vancomycin 750 mg IV daily as per pharmacy. SOCIAL HISTORY: There is no abuse of alcohol, drugs, or tobacco. PHYSICAL EXAMINATION: LUNGS: Coarse breath sounds. CHEST: Symmetric. HEART: Regular rhythm. ABDOMEN: Soft with peritoneal dialysis catheter that is palpated on the left side subcutaneously. DIAGNOSTIC DATA: Blood work: White blood cell count 9.1, H and H of 9 and 27, platelet count 187. PT and INR 16 and 1.2. Electrolytes: Sodium 126, potassium 3.8, BUN and creatinine 30 and 3.1. ASSESSMENT: 1. End-stage renal disease, currently on hemodialysis. 2. Presence of an old peritoneal dialysis catheter, which requires to be removed. 3. Patient is cleared by Cardiology and it has been deemed safe to proceed with general anesthesia for removal of the peritoneal dialysis catheter. PLAN: 1. Removal of peritoneal dialysis catheter today under general anesthesia. 2. Procedures benefits and complications explained to the ; he understands the above and decides to proceed. DICTATING PHYSICIAN: MARTHA BLAKE M.D. [id number] PHY#: [id number] ID: [id number] JOB#: [id number] ACCT: [id number] cc:MARTHA BLAKE M.D. > [facility]
[2016-06-07] MEDS ORDERED: BUPIVACAINE HCL 0.5%-EPI 1:200000 INJ/PF 30 ML VIAL ONE (13:40)
[2016-06-07] MEDS: RAMIPRIL 1.25 MG CAPSULE PO SCH ×2 (14:38→21:42)
--- NOTE | 2016-06-07 14:53 | PDOC PROGRESS REPORT ---
Subjective Progress Note for:: 06/07/16 Subjective:: Intubated Physical Exam Vital Signs: Temp Pulse Resp BP Pulse Ox 98.7 F 102 H 25 H 107/61 100 06/07/16 08:00 06/07/16 08:00 06/07/16 08:00 06/07/16 08:00 06/07/16 09:20 Intake & Output 06/06/16 06/07/16 06/08/16 06:59 06:59 06:59 Intake Total 1947 238 Output Total 1 275 Balance 1946 2111 Weight 61.3 kg 62.5 kg General appearance: PRESENT: no acute distress, other - Cachectic Head exam: PRESENT: atraumatic, normocephalic Eye exam: PRESENT: conjunctiva pale Mouth exam: PRESENT: dry mucosa, neck supple, other - Endotracheal tube in place Neck exam: ABSENT: carotid bruit, JVD, lymphadenopathy, thyromegaly Respiratory exam: PRESENT: decreased breath sounds, prolonged expiratory phas, rales, rhonchi, symmetrical, unlabored Cardiovascular exam: PRESENT: irregular rhythm Pulses: PRESENT: normal radial pulses GI/Abdominal exam: PRESENT: normal bowel sounds, soft. ABSENT: distended, guarding, mass, organolmegaly, rebound, tenderness Rectal exam: PRESENT: deferred Gentrourinary exam: PRESENT: indwelling catheter Skin exam: PRESENT: dry Results Laboratory Results: 06/07/16 05:35 06/07/16 05:35 06/07/16 06/07/16 06/07/16 05:35 05:35 05:35 WBC 9.1 RBC 3.08 L Hgb 9.1 L Hct 27.9 L MCV 90 MCH 29.4 MCHC 32.5 RDW 19.5 H Plt Count 187 Seg Neutrophils % Not Reportable Lymphocytes % Not Reportable Monocytes % Not Reportable Eosinophils % Not Reportable Basophils % Not Reportable Absolute Neutrophils Not Reportable Absolute Lymphocytes Not Reportable Absolute Monocytes Not Reportable Absolute Eosinophils Not Reportable Absolute Basophils Not Reportable Carbonic Acid 0.87 L HCO3/H2CO3 Ratio 24:1 ABG pH 7.48 H ABG pCO2 29.0 L ABG pO2 77.6 L ABG HCO3 21.1 ABG O2 Saturation 96.4 ABG Base Excess -1.7 FiO2 30% Sodium 126.0 L Potassium 3.8 Chloride 95 L Carbon Dioxide 21 L Anion Gap 10 BUN 30 H Creatinine 3.17 H Est GFR ( Amer) 19 L Est GFR (Non-Af Amer) 16 L Glucose 96 Calcium 8.1 L Magnesium 1.5 L 05/29/16 05/30/16 05/31/16 23:45 05:55 05:15 Creatine Kinase 31 CK-MB (CK-2) 1.81 1.71 Troponin I 0.069 0.094 05/31/16 05:15 Creatine Kinase CK-MB (CK-2) 1.46 Troponin I 0.079 Impressions: Chest/Abdomen CTA 05/29/16 18:00 IMPRESSION: No evidence for pulmonary embolic disease. Extensive chronic appearing changes as noted above. Small right pleural effusion is again identified which appears slightly larger than on the previous study. The previously described rounded masslike density in the right lower lobe is again identified. There is a central somewhat low density area and the possibility of a necrotic neoplasm or developing lung abscess cannot be excluded. Large pericardial effusion is again identified. Other findings as noted above Chest X-Ray 06/07/16 06:00 IMPRESSION: Stable appearance of the chest. Assessment & Plan - Diagnosis (1) Acute hypoxemic respiratory failure Is this a current diagnosis for this admission?: YesPlan: improving awaiting to seee if patient will go to OR for PD cath removal cardiology consult pending (2) End stage renal disease Is this a current diagnosis for this admission?: YesPlan: Improving creatinine and BUN (3) Lung abscess Qualifiers: Pulmonary abscess pneumonia presence: with pneumonia Laterality: right Lung location: unspecified part of lung Qualified Code(s): J85.1 - Abscess of lung with pneumonia Is this a current diagnosis for this admission?: No (4) Lung cancer Qualifiers: Laterality: unspecified laterality Lung location: unspecified part of lung Qualified Code(s): C34.90 - Malignant neoplasm of unspecified part of unspecified bronchus or lung Is this a current diagnosis for this admission?: YesPlan: diagnosed 3b [facility] cancer - Time Critical Time spent with patient: 35 or more minutes - 45 minutes spoke with spouse daily update
--- NOTE | 2016-06-07 16:04 | EKG REPORT ---
SEVERITY:- ABNORMAL ECG - SINUS TACHYCARDIA LAD, CONSIDER LAFB OR INFERIOR INFARCT ANTERIOR INFARCT, AGE INDETERMINATE : Confirmed by: Mckinley Hurd 07-Jun-2016 16:03:46
--- NOTE | 2016-06-07 17:03 | OPERATIVE REPORT E ---
Operative Report NAME: FELISA MILES : 1975 AGE: 40Y DATE OF SURGERY: 06/07/2016 ROOM: 608 PREOPERATIVE DIAGNOSES: 1. End-stage renal disease. 2. Need to remove peritoneal dialysis catheter. POSTOPERATIVE DIAGNOSES: 1. End-stage renal disease. 2. Need to remove peritoneal dialysis catheter. OPERATION: Removal of peritoneal dialysis catheter. SURGEON: MARTHA BLAKE M.D. WEATHER FORCASTER: None. ESTIMATED BLOOD LOSS: Minimal. COMPLICATIONS: None. ANESTHESIA: Propofol IV sedation provided by the manager inspection plus local 20 mL of 0.5% Marcaine with epinephrine. INDICATION/FINDINGS: This is a 40-year-old female with lung cancer, bronchiectasis, respiratory failure, [id number] renal failure, who had a peritoneal dialysis catheter placed a long time ago; however, the decision has been made to remove the peritoneal dialysis catheter, as dialysis is occurring through a tunneled subcutaneous hemodialysis catheter. The procedure risks, benefits, complications were discussed with the . He understood the above and the patient decided to proceed. DESCRIPTION OF PROCEDURE: The procedure was done in the ICU at bedside. The patient was given a bolus of propofol. The abdomen was prepped and draped in the usual fashion. The subcutaneously tunneled portion of the catheter was followed with a finger until it could not be appreciated. This point was infiltrated with 0.5% Marcaine with epinephrine and an incision was made and the catheter was then dissected and pulled upward. The catheter suture to the fascia was divided with scissors and the intraperitoneal portion of the catheter was pulled out without difficulty. The subcutaneous tunneled portion of the catheter was then gently dissected with finger until the Velcro sleeve was completely freed from the surrounding tissue. At this point, the catheter was completely pulled from the wound. The abdominal wall fascial defect of the entry point was closed with a [id number] 0-Vicryl suture. The subcutaneous pocket was packed with 1/4 inch Iodoform gauze. The previously made abdominal wound incision was closed with interrupted 2-0 nylon mattress sutures. Sterile dressings were applied. The patient tolerated the procedure well. At the end of the procedure, additional 10 ml of 0.5% Marcaine with epinephrine were injected in the subcutaneous tissue of the surgery site for a total of 20 mL. DICTATING PHYSICIAN: MARTHA BLAKE M.D. [id number] PHY#: [id number] ID: [id number] JOB#: [id number] ACCT: [id number] cc:MARTHA BLAKE M.D. > [facility]
--- NOTE | 2016-06-07 17:38 | PDOC PROGRESS REPORT ---
Subjective Progress Note for:: 06/07/16 Subjective:: Patient was seen in the ICU today. She is undergoing dialysis. Discussions were done with the treating nurse Stephany. Patient has been taken off pressors and remains more stable today. However she is fluid overloaded. She remains intubated and sedated. Patient is not as responsive as when I last saw on Tuesday. Family wants to have the Tenckhoff catheter removed. Medications and labs were reviewed. Physical Exam Vital Signs: Temp Pulse Resp BP Pulse Ox 98.5 F 85 25 H 143/90 H 100 06/07/16 16:00 06/07/16 16:00 06/07/16 16:00 06/07/16 16:00 06/07/16 16:20 Intake & Output 06/06/16 06/07/16 06/08/16 06:59 06:59 06:59 Intake Total 1947 2387 Output Total 1 275 0 Balance 1946 2112 0 Weight 61.3 kg 62.5 kg Exam: Intubated and sedated. She is much less responsive today than when I last saw on Tuesday. Discussed with the treating nurse. Respiratory exam: PRESENT: clear to auscultation frankie, crackles, rales. ABSENT: rhonchi Cardiovascular exam: PRESENT: +S1, +S2, systolic murmur GI/Abdominal exam: PRESENT: normal bowel sounds, soft. ABSENT: distended, firm , tenderness Extremities exam: PRESENT: pedal edema Results Laboratory Results: 06/07/16 05:35 06/07/16 05:35 06/07/16 06/07/16 06/07/16 05:35 05:35 05:35 WBC 9.1 RBC 3.08 L Hgb 9.1 L Hct 27.9 L MCV 90 MCH 29.4 MCHC 32.5 RDW 19.5 H Plt Count 187 Seg Neutrophils % Not Reportable Lymphocytes % Not Reportable Monocytes % Not Reportable Eosinophils % Not Reportable Basophils % Not Reportable Absolute Neutrophils Not Reportable Absolute Lymphocytes Not Reportable Absolute Monocytes Not Reportable Absolute Eosinophils Not Reportable Absolute Basophils Not Reportable Carbonic Acid 0.87 L HCO3/H2CO3 Ratio 24:1 ABG pH 7.48 H ABG pCO2 29.0 L ABG pO2 77.6 L ABG HCO3 21.1 ABG O2 Saturation 96.4 ABG Base Excess -1.7 FiO2 30% Sodium 126.0 L Potassium 3.8 Chloride 95 L Carbon Dioxide 21 L Anion Gap 10 BUN 30 H Creatinine 3.17 H Est GFR ( Amer) 19 L Est GFR (Non-Af Amer) 16 L Glucose 96 Calcium 8.1 L Magnesium 1.5 L 05/29/16 05/30/16 05/31/16 23:45 05:55 05:15 Creatine Kinase 31 CK-MB (CK-2) 1.81 1.71 Troponin I 0.069 0.094 05/31/16 05:15 Creatine Kinase CK-MB (CK-2) 1.46 Troponin I 0.079 Impressions: Chest/Abdomen CTA 05/29/16 18:00 IMPRESSION: No evidence for pulmonary embolic disease. Extensive chronic appearing changes as noted above. Small right pleural effusion is again identified which appears slightly larger than on the previous study. The previously described rounded masslike density in the right lower lobe is again identified. There is a central somewhat low density area and the possibility of a necrotic neoplasm or developing lung abscess cannot be excluded. Large pericardial effusion is again identified. Other findings as noted above Chest X-Ray 06/07/16 06:00 IMPRESSION: Stable appearance of the chest. Assessment & Plan - Diagnosis (1) Acute hypoxemic respiratory failure Is this a current diagnosis for this admission?: YesPlan: Presently intubated and sedated. She is less responsive than when I saw her on Tuesday (2) End stage renal disease Is this a current diagnosis for this admission?: YesPlan: Patient undergoing dialysis. Patient is fluid overloaded. We will plan to remove at least 2 L of fluid as tolerated. Orders were discussed with the treating nurse. (3) Lung abscess Qualifiers: Pulmonary abscess pneumonia presence: with pneumonia Laterality: right Lung location: unspecified part of lung Qualified Code(s): J85.1 - Abscess of lung with pneumonia Is this a current diagnosis for this admission?: NoPlan: Patient in septic shock, but recovering and she is currently off pressors. Patient on antibiotics. Monitor. (4) Lung cancer Qualifiers: Laterality: unspecified laterality Lung location: unspecified part of lung Qualified Code(s): C34.90 - Malignant neoplasm of unspecified part of unspecified bronchus or lung Is this a current diagnosis for this admission?: YesPlan: Has been seen at [facility] multiple times , but has had no definitive treatments done given the very poor prognosis and very poor serious comorbidities. (5) Septic shock Is this a current diagnosis for this admission?: YesPlan: Patient currently off vasopressin. Improving. On antibiotics. (7) Pulmonary fibrosis Is this a current diagnosis for this admission?: Yes (8) Scleroderma Is this a current diagnosis for this admission?: YesPlan: With severe comorbidities and complications of the disease. (9) Anemia Plan: Monitor. Adjust low-dose erythropoietin.
[2016-06-07] MEDS: VANCOMYCIN HCL 750 MG in DEXTROSE 5%-WATER 250 ML IV SCH (19:42)
--- NOTE | 2016-06-07 20:33 | PDOC PROGRESS REPORT ---
Subjective Progress Note for:: 06/07/16 Subjective:: Patient seen by the bedside still intubated and sedated Physical Exam Vital Signs: Temp Pulse Resp BP Pulse Ox 96.7 F L 90 20 115/93 H 100 06/07/16 19:41 06/07/16 19:41 06/07/16 19:41 06/07/16 19:41 06/07/16 18:30 Intake & Output 06/06/16 06/07/16 06/08/16 06:59 06:59 06:59 Intake Total 6 2387 1044 Output Total 1 785 2812 Balance 19462 -1768 Weight 61.3 kg 62.5 kg Eye exam: PRESENT: PERRLA Respiratory exam: PRESENT: clear to auscultation frankie Cardiovascular exam: PRESENT: +S1, +S2 GI/Abdominal exam: PRESENT: soft Skin exam: PRESENT: other - There is severe third spacing Results Laboratory Results: 06/07/16 05:35 06/07/16 05:35 06/07/16 06/07/16 06/07/16 05:35 05:35 05:35 WBC 9.1 RBC 3.08 L Hgb 9.1 L Hct 27.9 L MCV 90 MCH 29.4 MCHC 32.5 RDW 19.5 H Plt Count 187 Seg Neutrophils % Not Reportable Lymphocytes % Not Reportable Monocytes % Not Reportable Eosinophils % Not Reportable Basophils % Not Reportable Absolute Neutrophils Not Reportable Absolute Lymphocytes Not Reportable Absolute Monocytes Not Reportable Absolute Eosinophils Not Reportable Absolute Basophils Not Reportable Carbonic Acid 0.87 L HCO3/H2CO3 Ratio 24:1 ABG pH 7.48 H ABG pCO2 29.0 L ABG pO2 77.6 L ABG HCO3 21.1 ABG O2 Saturation 96.4 ABG Base Excess -1.7 FiO2 30% Sodium 126.0 L Potassium 3.8 Chloride 95 L Carbon Dioxide 21 L Anion Gap 10 BUN 30 H Creatinine 3.17 H Est GFR ( Amer) 19 L Est GFR (Non-Af Amer) 16 L Glucose 96 Calcium 8.1 L Magnesium 1.5 L 06/07/16 18:45 WBC RBC Hgb Hct MCV MCH MCHC RDW Plt Count Seg Neutrophils % Lymphocytes % Monocytes % Eosinophils % Basophils % Absolute Neutrophils Absolute Lymphocytes Absolute Monocytes Absolute Eosinophils Absolute Basophils Carbonic Acid HCO3/H2CO3 Ratio ABG pH ABG pCO2 ABG pO2 ABG HCO3 ABG O2 Saturation ABG Base Excess FiO2 Sodium Potassium Chloride Carbon Dioxide Anion Gap BUN Creatinine Est GFR ( Amer) Est GFR (Non-Af Amer) Glucose Calcium Magnesium 1.9 05/29/16 05/30/16 05/31/16 23:45 05:55 05:15 Creatine Kinase 31 CK-MB (CK-2) 1.81 1.71 Troponin I 0.069 0.094 05/31/16 05:15 Creatine Kinase CK-MB (CK-2) 1.46 Troponin I 0.079 Impressions: Chest/Abdomen CTA 05/29/16 18:00 IMPRESSION: No evidence for pulmonary embolic disease. Extensive chronic appearing changes as noted above. Small right pleural effusion is again identified which appears slightly larger than on the previous study. The previously described rounded masslike density in the right lower lobe is again identified. There is a central somewhat low density area and the possibility of a necrotic neoplasm or developing lung abscess cannot be excluded. Large pericardial effusion is again identified. Other findings as noted above Chest X-Ray 06/07/16 06:00 IMPRESSION: Stable appearance of the chest. Assessment & Plan - Diagnosis (1) Acute hypoxemic respiratory failure Is this a current diagnosis for this admission?: Yes (2) Lung cancer Qualifiers: Laterality: unspecified laterality Lung location: unspecified part of lung Qualified Code(s): C34.90 - Malignant neoplasm of unspecified part of unspecified bronchus or lung Is this a current diagnosis for this admission?: Yes (3) Lung abscess Qualifiers: Pulmonary abscess pneumonia presence: with pneumonia Laterality: right Lung location: unspecified part of lung Qualified Code(s): J85.1 - Abscess of lung with pneumonia Is this a current diagnosis for this admission?: No (4) End stage renal disease Is this a current diagnosis for this admission?: Yes (5) Cardiac arrest Is this a current diagnosis for this admission?: Yes (6) Cardiogenic shock Is this a current diagnosis for this admission?: Yes (7) Septic shock Is this a current diagnosis for this admission?: Yes - Plan Summary Plan Summary: The plan is to start the weaning process off the ventilator tomorrow, she has tremendous third spacing, overall prognosis still remains very poor. Case discussed with family
--- NOTE | 2016-06-07 22:23 | PROGRESS NOTE E ---
Progress Note NAME: FELISA MILES : 1975 AGE: 40Y DATE: 06/07/2016 ROOM: 608 SUBJECTIVE: Note that the patient is intubated and sedated but is awake. She is off pressors. She is able to nod her head, saying that she is not short of breath and also that she is not having chest pain. There is no arrhythmia; the patient seems to be in sinus rhythm. Note that the patient's upper extremity fluid has gone down or almost resolved, but the patient still has 2+ lower extremity edema. OBJECTIVE: GENERAL: The patient is intubated and sedated and is not fighting the ventilator. VITAL SIGNS: She is afebrile with a temperature of 98.2 degrees Fahrenheit, pulse is 86 beats per minute, blood pressure is 142/77, respirations are 25 per minute, O2 sats are 100% on FiO2 of 30% on mechanical ventilator. HEENT: Head is normocephalic, atraumatic. Eyes: Pupils are equal, round, and reactive to light. ENT is negative. NECK: Supple. There is JVD present. Trachea is central. There is no cervical or axillary lymphadenopathy. Carotids are 2+ without bruits. There is no goiter. LUNGS: Show leathery rales in the bases on both sides. HEART: S1 and S2 are heard. There is no S3 gallop. There is no S4 gallop. There is a systolic murmur in the left sternal border and apex. There is no rub. ABDOMEN: Soft, nontender. There is no hepatosplenomegaly. Bowel sounds are well heard. EXTREMITIES: Pedal pulses are diminished. Femorals are diminished. There are no femoral bruits. There is 2+ pedal edema bilaterally. There is no clubbing or cyanosis. NEUROLOGIC: The patient is very somnolent although she wakes up and answers questions and further neurological and psychiatric examinations could not be made. Note that the patient had a peritoneal dialysis catheter (Tenckhoff catheter) removed by the surgeon without any problems. DIAGNOSTIC DATA: The patient's white count is 9100, hemoglobin is 9.1, hematocrit is 27.9, and platelet count is 187,000. The patient's sodium is 126, potassium is 3.8, chloride is 95, CO2 is 21, BUN is 30, creatinine 3.17, GFR is reduced at 19 mL, which is stage 5 chronic kidney disease. The patient's blood sugar is 98 and her calcium is 8.1 and the magnesium is low at 1.5. IMPRESSION: 1. Status post cardiac arrest with pulseless electrical activity, now has resumed the pulse and her blood pressure is good, remains in sinus rhythm. 2. Acute hypoxic respiratory failure. 3. End-stage renal disease on dialysis. Note that the patient is on hemodialysis; the Tenckhoff has been removed. 4. Lung cancer. 5. Status post septic shock. At present blood pressure is good. 6. Pulmonary fibrosis on top of scleroderma. 7. Cardiomyopathy with severely reduced LV ejection fraction. 8. Hyponatremia most likely dilutional and secondary to heart failure, which is chronic systolic heart failure. 9. Hypomagnesemia. Please replace this. RECOMMENDATIONS: Continue hemodialysis since the patient is volume overloaded. Continue antibiotics. Continue Accu-Chek before meals, t.i.d. and at bedtime. Note that the patient is on metoprolol IV q.4 h. p.r.n. and also she is on ramipril 1.25 mg p.o. q.12 h. Note: All her pressors have been held. Patient is a FULL CODE. Thirty minutes spent on this patient with more than 50% of the time spent on direct patient care. The patient is FULL CODE and her is her surrogate healthcare decision maker. DICTATING PHYSICIAN: LAURA TOVAR M.D. [id number] PHY#: [id number] ID: [id number] JOB#: [id number] ACCT: [id number] cc: >
[2016-06-07] MEDS: MORPHINE SULFATE 10 MG/ML INJ IV PRN (23:54)
[2016-06-08] MEDS: METOCLOPRAMIDE HCL INJ/PF 10 MG/2 ML SDV IV SCH ×3 (02:28→17:56)
[2016-06-08] MEDS: HEPARIN SOD (PORCINE) 5,000 UNIT/ML 1 ML SYRINGE SUBCUT SCH ×3 (06:13→21:53)
[2016-06-08] MEDS: IMIPENEM/CILASTATIN SODIUM 250 MG in NORMAL SALINE 100 ML IV SCH ×2 (06:13→17:56)
[2016-06-08] MEDS: PROPOFOL 100 ML IV PRN (06:14)
[2016-06-08 06:23] LABS: ARTERIAL BLOOD BASE EXCESS 1.9 mmol/L; ARTERIAL BLOOD O2 SATURATION 97.8 % (94-98)
[2016-06-08 06:35] LABS: ABSOLUTE BASOPHILS # (AUTO) 0.1 10^3/uL (0.0-0.2); ABSOLUTE EOSINOPHILS # (AUTO) 0.2 10^3/uL (0.0-0.6); ABSOLUTE LYMPHOCYTES (AUTO) 1.2 10^3/uL (0.5-4.7); ABSOLUTE MONOCYTES (AUTO) 0.7 10^3/uL (0.1-1.4); ABSOLUTE NEUT (AUTO) 7.2 10^3/uL (1.7-8.2); BASOPHILS % (AUTO) 0.6 % (0-2); EOSINOPHILS % (AUTO) 1.6 % (0-6); HEMATOCRIT 28.1 % (36.0-47.0); HEMOGLOBIN 9.2 g/dL (12.0-15.5); HGB HCT DIFFERENCE -0.5; LYMPHOCYTES % (AUTO) 12.7 % (13-45); MEAN CORPUSCULAR HEMOGLOBIN 29.3 pg (27.0-33.4); MEAN CORPUSCULAR HGB CONC 32.8 g/dL (32.0-36.0); MEAN CORPUSCULAR VOLUME 90 fl (80-97); MONOCYTES % (AUTO) 7.1 % (3-13); RED BLOOD COUNT 3.14 10^6/uL (3.72-5.28); RED CELL DISTRIBUTION WIDTH 19.5 % (11.5-14.0); WHITE BLOOD COUNT 9.3 10^3/uL (4.0-10.5)
[2016-06-08 06:53] LABS: ANION GAP 8 (5-19); BLOOD UREA NITROGEN 21 mg/dL (7-20); CALCIUM 7.9 mg/dL (8.4-10.2); CARBON DIOXIDE 23 mmol/L (22-30); CHLORIDE 97 mmol/L (98-107); CREATININE RESULT 2.46 mg/dL (0.52-1.25); GLUCOSE 74 mg/dL (75-110); MAGNESIUM 1.8 mg/dL (1.6-2.3); POTASSIUM 3.6 mmol/L (3.6-5.0); SODIUM 127.7 mmol/L (137-145); TRIGLYCERIDES 99 mg/dL (<150)
[2016-06-08] MEDS: RAMIPRIL 1.25 MG CAPSULE PO SCH ×2 (10:06→21:54)
[2016-06-08] MEDS: GENTAMICIN SULFATE 0.1% CREAM 15 GM TP SCH (10:07)
[2016-06-08] MEDS: CARVEDILOL 3.125 MG TABLET NG SCH ×2 (10:07→21:54)
[2016-06-08] MEDS: DEXTROSE 10%-WATER 1,000 ML IV PRN (16:49)
--- NOTE | 2016-06-08 17:18 | PDOC PROGRESS REPORT ---
Subjective Progress Note for:: 06/08/16 Subjective:: Intubated AWAKE Physical Exam Vital Signs: Temp Pulse Resp BP Pulse Ox 98.4 F 92 25 H 123/71 100 06/08/16 08:00 06/08/16 08:00 06/08/16 08:00 06/08/16 08:00 06/08/16 08:00 Intake & Output 06/07/16 06/08/16 06/09/16 06:59 06:59 06:59 Intake Total 2387 1784 Output Total 704 2812 Balance 2112 -1028 Weight 62.5 kg 61.3 kg General appearance: PRESENT: no acute distress, thin Head exam: PRESENT: atraumatic, normocephalic Eye exam: PRESENT: conjunctiva pale Mouth exam: PRESENT: dry mucosa, neck supple Neck exam: ABSENT: carotid bruit, JVD, lymphadenopathy, thyromegaly Respiratory exam: PRESENT: prolonged expiratory phas, rhonchi, symmetrical, unlabored Cardiovascular exam: PRESENT: irregular rhythm Pulses: PRESENT: normal radial pulses GI/Abdominal exam: PRESENT: normal bowel sounds, soft. ABSENT: distended, guarding, mass, organolmegaly, rebound, tenderness Rectal exam: PRESENT: deferred Gentrourinary exam: PRESENT: indwelling catheter Musculoskeletal exam: PRESENT: normal inspection Neurological exam: PRESENT: awake Psychiatric exam: PRESENT: normal mood Skin exam: PRESENT: dry, warm Results Laboratory Results: 06/08/16 06:00 06/08/16 06:00 06/07/16 06/08/16 06/08/16 18:45 06:00 06:00 WBC RBC Hgb Hct MCV MCH MCHC RDW Plt Count Seg Neutrophils % Lymphocytes % Monocytes % Eosinophils % Basophils % Absolute Neutrophils Absolute Lymphocytes Absolute Monocytes Absolute Eosinophils Absolute Basophils Carbonic Acid 0.84 L HCO3/H2CO3 Ratio 28:1 ABG pH 7.55 H ABG pCO2 27.8 L ABG pO2 89.7 ABG HCO3 23.7 ABG O2 Saturation 97.8 ABG Base Excess 1.9 FiO2 30% Sodium 127.7 L Potassium 3.6 Chloride 97 L Carbon Dioxide 23 Anion Gap 8 BUN 21 H Creatinine 2.46 H Est GFR ( Amer) 26 L Est GFR (Non-Af Amer) 22 L Glucose 74 L Calcium 7.9 L Magnesium 1.9 1.8 Triglycerides 99 06/08/16 06:00 WBC 9.3 RBC 3.14 L Hgb 9.2 L Hct 28.1 L MCV 90 MCH 29.3 MCHC 32.8 RDW 19.5 H Plt Count 216 Seg Neutrophils % 78.0 Lymphocytes % 12.7 L Monocytes % 7.1 Eosinophils % 1.6 Basophils % 0.6 Absolute Neutrophils 7.2 Absolute Lymphocytes 1.2 Absolute Monocytes 0.7 Absolute Eosinophils 0.2 Absolute Basophils 0.1 Carbonic Acid HCO3/H2CO3 Ratio ABG pH ABG pCO2 ABG pO2 ABG HCO3 ABG O2 Saturation ABG Base Excess FiO2 Sodium Potassium Chloride Carbon Dioxide Anion Gap BUN Creatinine Est GFR ( Amer) Est GFR (Non-Af Amer) Glucose Calcium Magnesium Triglycerides 05/29/16 05/30/16 05/31/16 23:45 05:55 05:15 Creatine Kinase 31 CK-MB (CK-2) 1.81 1.71 Troponin I 0.069 0.094 05/31/16 05:15 Creatine Kinase CK-MB (CK-2) 1.46 Troponin I 0.079 Impressions: Chest/Abdomen CTA 05/29/16 18:00 IMPRESSION: No evidence for pulmonary embolic disease. Extensive chronic appearing changes as noted above. Small right pleural effusion is again identified which appears slightly larger than on the previous study. The previously described rounded masslike density in the right lower lobe is again identified. There is a central somewhat low density area and the possibility of a necrotic neoplasm or developing lung abscess cannot be excluded. Large pericardial effusion is again identified. Other findings as noted above Chest X-Ray 06/08/16 06:00 IMPRESSION: Stable appearance. Assessment & Plan - Diagnosis (1) Acute hypoxemic respiratory failure Is this a current diagnosis for this admission?: YesPlan: improving WILL EXTUBATE (2) End stage renal disease Is this a current diagnosis for this admission?: YesPlan: Improving creatinine and BUN (3) Lung abscess Qualifiers: Pulmonary abscess pneumonia presence: with pneumonia Laterality: right Lung location: unspecified part of lung Qualified Code(s): J85.1 - Abscess of lung with pneumonia Is this a current diagnosis for this admission?: No (4) Lung cancer Qualifiers: Laterality: unspecified laterality Lung location: unspecified part of lung Qualified Code(s): C34.90 - Malignant neoplasm of unspecified part of unspecified bronchus or lung Is this a current diagnosis for this admission?: YesPlan: diagnosed 3b NSCL cancer - Time Time Spent with patient: 35 or more minutes
[2016-06-08 18:31] LABS: ANION GAP 5 (5-19); BLOOD UREA NITROGEN 22 mg/dL (7-20); CALCIUM 7.9 mg/dL (8.4-10.2); CARBON DIOXIDE 25 mmol/L (22-30); CHLORIDE 92 mmol/L (98-107); CREATININE RESULT 2.64 mg/dL (0.52-1.25); POTASSIUM 3.9 mmol/L (3.6-5.0); SODIUM 122.4 mmol/L (137-145)
[2016-06-08 18:42] LABS: GLUCOSE 409 mg/dL (75-110)
[2016-06-08] MEDS: MORPHINE SULFATE 10 MG/ML INJ IV PRN (19:57)
[2016-06-08] MEDS: DEXTROSE 50%-WATER SYRINGE 25 GM/50 ML DOSE IV PRN ×3 (19:57→23:04)
[2016-06-08] MEDS ORDERED: SODIUM CHLORIDE 3% 100 ML IV ONE (20:00)
[2016-06-08] MEDS ORDERED: LORAZEPAM INJ 2 MG/1 ML VIAL IV ONE (20:42)
[2016-06-08] MEDS ORDERED: LORAZEPAM INJ 2 MG/1 ML VIAL ONE (20:42)
--- NOTE | 2016-06-08 21:19 | PDOC PROGRESS REPORT ---
Subjective Progress Note for:: 06/08/16 Subjective:: Patient was extubated today, she was seen by the bedside, she is asking when she will be going home Physical Exam Vital Signs: Temp Pulse Resp BP Pulse Ox 97.7 F 105 H 20 141/98 H 100 06/08/16 19:53 06/08/16 19:53 06/08/16 19:53 06/08/16 19:53 06/08/16 19:03 Intake & Output 06/07/16 06/08/16 06/09/16 06:59 06:59 06:59 Intake Total 2387 1784 600 Output Total 275 2812 1 Balance 2112 -1028 599 Weight 62.5 kg 61.3 kg General appearance: PRESENT: no acute distress Eye exam: PRESENT: PERRLA Respiratory exam: PRESENT: rhonchi Cardiovascular exam: PRESENT: +S1, +S2 GI/Abdominal exam: PRESENT: soft Neurological exam: PRESENT: alert, CN II-XII grossly intact Results Laboratory Results: 06/08/16 06:00 06/08/16 17:54 06/08/16 06/08/16 06/08/16 06:00 06:00 06:00 WBC 9.3 RBC 3.14 L Hgb 9.2 L Hct 28.1 L MCV 90 MCH 29.3 MCHC 32.8 RDW 19.5 H Plt Count 216 Seg Neutrophils % 78.0 Lymphocytes % 12.7 L Monocytes % 7.1 Eosinophils % 1.6 Basophils % 0.6 Absolute Neutrophils 7.2 Absolute Lymphocytes 1.2 Absolute Monocytes 0.7 Absolute Eosinophils 0.2 Absolute Basophils 0.1 Carbonic Acid 0.84 L HCO3/H2CO3 Ratio 28:1 ABG pH 7.55 H ABG pCO2 27.8 L ABG pO2 89.7 ABG HCO3 23.7 ABG O2 Saturation 97.8 ABG Base Excess 1.9 FiO2 30% Sodium 127.7 L Potassium 3.6 Chloride 97 L Carbon Dioxide 23 Anion Gap 8 BUN 21 H Creatinine 2.46 H Est GFR ( Amer) 26 L Est GFR (Non-Af Amer) 22 L Glucose 74 L Calcium 7.9 L Magnesium 1.8 Triglycerides 99 06/08/16 17:54 WBC RBC Hgb Hct MCV MCH MCHC RDW Plt Count Seg Neutrophils % Lymphocytes % Monocytes % Eosinophils % Basophils % Absolute Neutrophils Absolute Lymphocytes Absolute Monocytes Absolute Eosinophils Absolute Basophils Carbonic Acid HCO3/H2CO3 Ratio ABG pH ABG pCO2 ABG pO2 ABG HCO3 ABG O2 Saturation ABG Base Excess FiO2 Sodium 122.4 L Potassium 3.9 Chloride 92 L Carbon Dioxide 25 Anion Gap 5 BUN 22 H Creatinine 2.64 H Est GFR ( Amer) 24 L Est GFR (Non-Af Amer) 20 L Glucose 409 H* Calcium 7.9 L Magnesium Triglycerides 05/29/16 05/30/16 05/31/16 23:45 05:55 05:15 Creatine Kinase 31 CK-MB (CK-2) 1.81 1.71 Troponin I 0.069 0.094 05/31/16 05:15 Creatine Kinase CK-MB (CK-2) 1.46 Troponin I 0.079 Impressions: Chest/Abdomen CTA 05/29/16 18:00 IMPRESSION: No evidence for pulmonary embolic disease. Extensive chronic appearing changes as noted above. Small right pleural effusion is again identified which appears slightly larger than on the previous study. The previously described rounded masslike density in the right lower lobe is again identified. There is a central somewhat low density area and the possibility of a necrotic neoplasm or developing lung abscess cannot be excluded. Large pericardial effusion is again identified. Other findings as noted above Chest X-Ray 06/08/16 06:00 IMPRESSION: Stable appearance. Assessment & Plan - Diagnosis (1) Acute hypoxemic respiratory failure Is this a current diagnosis for this admission?: Yes (2) Lung cancer Qualifiers: Laterality: unspecified laterality Lung location: unspecified part of lung Qualified Code(s): C34.90 - Malignant neoplasm of unspecified part of unspecified bronchus or lung Is this a current diagnosis for this admission?: Yes (3) Lung abscess Qualifiers: Pulmonary abscess pneumonia presence: with pneumonia Laterality: right Lung location: unspecified part of lung Qualified Code(s): J85.1 - Abscess of lung with pneumonia Is this a current diagnosis for this admission?: No (4) End stage renal disease Is this a current diagnosis for this admission?: Yes (5) Cardiac arrest Is this a current diagnosis for this admission?: Yes (6) Cardiogenic shock Is this a current diagnosis for this admission?: Yes (7) Septic shock Is this a current diagnosis for this admission?: Yes - Plan Summary Plan Summary: Patient is extubated, she is still tachycardic, denies plan of care will be rehabilitation/physical therapy
--- NOTE | 2016-06-08 21:33 | OPERATIVE REPORT E ---
Operative Report NAME: FELISA MILES : 1975 AGE: 40Y DATE OF SURGERY: 06/08/2016 ROOM: 608 PREOPERATIVE DIAGNOSIS: In need of intravenous access. POSTOPERATIVE DIAGNOSIS: In need of intravenous access. PROCEDURE: Placement of right central venous intravenous lines. SURGEON: MARTHA BLAKE M.D. AZURE DEVELOPER: None. BLEEDING: Minimal. COMPLICATIONS: None. ANESTHESIA: Local 5 mL of 1% lidocaine. INDICATION AND FINDINGS: This is a 40-year-old female with end-stage renal disease on hemodialysis, pulmonary failure needing central venous IV access. DESCRIPTION OF PROCEDURE: The procedure was done at bedside. The patient was placed in a supine and then Trendelenburg position, the right side of her chest and neck prepped and draped in usual fashion. The area just below the midportion of the clavicle was infiltrated with lidocaine. A 16-gauge needle was used to easily cannulate the right subclavian vein. A guidewire was inserted through the needle into the subclavian vein and superior vena cava. The needle was removed. The incision point for the guidewire was enlarged with a #11 blade and tissue dilator. This was then removed, and the triple-lumen catheter was inserted over the guidewire up to about 15 cm. The guidewire was removed easily. Each port of the triple lumen catheter was aspirated and flushed with normal saline without difficulty. The catheter was then secured to the skin with silk sutures and sterile dressing applied. The patient tolerated the procedure well. A chest x-ray was then obtained to confirm good position of the line. DICTATING PHYSICIAN: MARTHA BLAKE M.D. [id number] Y#: [id number] ID: [id number] JOB#: [id number] ACCT: [id number] cc:MARTHA BLAKE M.D. > [facility]
--- NOTE | 2016-06-08 22:13 | PROGRESS NOTE E ---
Progress Note NAME: FELISA MILES : 1975 AGE: 40Y DATE: 06/08/2016 ROOM: 608 SUBJECTIVE: The patient is extubated, alert, oriented. OBJECTIVE: VITAL SIGNS: Stable. ABDOMEN: Abdomen is slightly distended, nontender. Surgical incision in mid abdomen is clean. Anterior point of the peritoneal dialysis catheter appears to be clean without drainage and no odor. ASSESSMENT: 1. STATUS POST REMOVAL OF PERITONEAL DIALYSIS CATHETER YESTERDAY. 2. ABDOMINAL WOUND IS CLEAN. 3. NO ACUTE GENERAL SURGICAL ISSUES IDENTIFIED. PLAN: 1. Remove packing from the abdominal wound tonight. 2. Replace packing daily by nurses. 3. Abdominal wound sutures will be removed in 3 weeks. DICTATING PHYSICIAN: MARTHA BLAKE M.D. [id number] PHY#: [id number] ID: [id number] JOB#: [id number] ACCT: [id number] cc: >
[2016-06-08 22:58] LABS: ANION GAP 7 (5-19); BLOOD UREA NITROGEN 22 mg/dL (7-20); CALCIUM 8.6 mg/dL (8.4-10.2); CARBON DIOXIDE 25 mmol/L (22-30); CHLORIDE 96 mmol/L (98-107); CREATININE RESULT 2.74 mg/dL (0.52-1.25); GLUCOSE 85 mg/dL (75-110); POTASSIUM 3.9 mmol/L (3.6-5.0); SODIUM 128.2 mmol/L (137-145)
[2016-06-09] MEDS: METOCLOPRAMIDE HCL INJ/PF 10 MG/2 ML SDV IV SCH ×3 (02:33→17:38)
[2016-06-09] MEDS: DEXTROSE 50%-WATER SYRINGE 25 GM/50 ML DOSE IV PRN ×8 (02:45→23:38)
[2016-06-09] MEDS: MORPHINE SULFATE 10 MG/ML INJ IV PRN ×5 (04:50→22:16)
[2016-06-09] MEDS: IMIPENEM/CILASTATIN SODIUM 250 MG in NORMAL SALINE 100 ML IV SCH (06:11)
[2016-06-09] MEDS: HEPARIN SOD (PORCINE) 5,000 UNIT/ML 1 ML SYRINGE SUBCUT SCH ×3 (06:12→21:51)
[2016-06-09 06:34] LABS: ABSOLUTE EOSINOPHILS # (AUTO) 0.1 10^3/uL (0.0-0.6); ABSOLUTE MONOCYTES (AUTO) 0.9 10^3/uL (0.1-1.4); ABSOLUTE NEUT (AUTO) 10.9 10^3/uL (1.7-8.2); BASOPHILS % (AUTO) 0.2 % (0-2); EOSINOPHILS % (AUTO) 1.1 % (0-6); HEMATOCRIT 29.4 % (36.0-47.0); HEMOGLOBIN 9.3 g/dL (12.0-15.5); HGB HCT DIFFERENCE -1.5; LYMPHOCYTES % (AUTO) 7.8 % (13-45); MEAN CORPUSCULAR HGB CONC 31.6 g/dL (32.0-36.0); MEAN CORPUSCULAR VOLUME 92 fl (80-97); MONOCYTES % (AUTO) 6.8 % (3-13); RED CELL DISTRIBUTION WIDTH 19.1 % (11.5-14.0); SEGMENTED NEUTROPHILS % (AUTO) 84.1 % (42-78)
[2016-06-09 06:35] LABS: ARTERIAL BLOOD BASE EXCESS -4.3 mmol/L; ARTERIAL BLOOD O2 SATURATION 97.9 % (94-98)
[2016-06-09 07:09] LABS: ANION GAP 10 (5-19); BLOOD UREA NITROGEN 24 mg/dL (7-20); CALCIUM 8.8 mg/dL (8.4-10.2); CARBON DIOXIDE 23 mmol/L (22-30); CHLORIDE 97 mmol/L (98-107); CREATININE RESULT 3.07 mg/dL (0.52-1.25); GLUCOSE 102 mg/dL (75-110); MAGNESIUM 1.9 mg/dL (1.6-2.3); POTASSIUM 4.1 mmol/L (3.6-5.0)
[2016-06-09] MEDS ORDERED: EPOETIN ALFA 10,000 UNIT in SYRINGE, DISPOSABLE, 1 EACH IV PRN (09:49)
[2016-06-09] MEDS ORDERED: HEPARIN SOD (PORCINE) 1,000 UNIT/ML 10 ML VIAL IV PRN (09:50)
[2016-06-09] MEDS: GENTAMICIN SULFATE 0.1% CREAM 15 GM TP SCH (10:00)
[2016-06-09] MEDS: RAMIPRIL 1.25 MG CAPSULE PO SCH ×2 (12:06→21:55)
[2016-06-09] MEDS: CARVEDILOL 3.125 MG TABLET NG SCH ×2 (12:06→21:55)
[2016-06-09] MEDS ORDERED: IPRATROPIUM/ALBUTEROL 0.5-2.5 MG/3 ML AMPUL NEB ONE (14:36)
--- NOTE | 2016-06-09 17:55 | PDOC PROGRESS REPORT ---
Subjective Progress Note for:: 06/09/16 Subjective:: Patient was seen in the ICU today. She has been extubated and looking lots better. Off pressors. She is undergoing dialysis. Discussions were done with the treating nurse Stephany. Davin castelan is out.She is answering q appropriately.Denies chest pains, dyspnea, fever or chills. Physical Exam Vital Signs: Temp Pulse Resp BP Pulse Ox 98.5 F 112 H 23 H 133/107 H 100 06/09/16 16:00 06/09/16 16:00 06/09/16 16:02 06/09/16 16:02 06/09/16 16:30 Intake & Output 06/08/16 06/09/16 06/10/16 06:59 06:59 06:59 Intake Total 1784 800 Output Total 2812 2 3225 Balance -1028 798 -3225 Weight 61.3 kg 57.6 kg General appearance: PRESENT: no acute distress Respiratory exam: PRESENT: clear to auscultation frankie, crackles. ABSENT: rhonchi Cardiovascular exam: PRESENT: +S1, +S2, systolic murmur GI/Abdominal exam: PRESENT: normal bowel sounds, soft. ABSENT: distended, firm , tenderness Extremities exam: PRESENT: +1 edema Results Laboratory Results: 06/09/16 06:00 06/09/16 06:00 06/08/16 06/08/16 06/09/16 17:54 22:25 06:00 WBC 13.0 H RBC 3.20 L Hgb 9.3 L Hct 29.4 L MCV 92 MCH 29.0 MCHC 31.6 L RDW 19.1 H Plt Count 256 Seg Neutrophils % 84.1 H Lymphocytes % 7.8 L Monocytes % 6.8 Eosinophils % 1.1 Basophils % 0.2 Absolute Neutrophils 10.9 H Absolute Lymphocytes 1.0 Absolute Monocytes 0.9 Absolute Eosinophils 0.1 Absolute Basophils 0.0 Carbonic Acid HCO3/H2CO3 Ratio ABG pH ABG pCO2 ABG pO2 ABG HCO3 ABG O2 Saturation ABG Base Excess FiO2 Sodium 122.4 L 128.2 L Potassium 3.9 3.9 Chloride 92 L 96 L Carbon Dioxide 25 25 Anion Gap 5 7 BUN 22 H 22 H Creatinine 2.64 H 2.74 H Est GFR ( Amer) 24 L 23 L Est GFR (Non-Af Amer) 20 L 19 L Glucose 409 H* 85 Calcium 7.9 L 8.6 Magnesium 06/09/16 06/09/16 06/09/16 06:00 06:00 06:00 WBC RBC Hgb Hct MCV MCH MCHC RDW Plt Count Seg Neutrophils % Lymphocytes % Monocytes % Eosinophils % Basophils % Absolute Neutrophils Absolute Lymphocytes Absolute Monocytes Absolute Eosinophils Absolute Basophils Carbonic Acid 1.44 H HCO3/H2CO3 Ratio 15:1 ABG pH 7.29 L ABG pCO2 47.8 H ABG pO2 119.8 H ABG HCO3 22.4 ABG O2 Saturation 97.9 ABG Base Excess -4.3 FiO2 4 L Sodium 130.0 L Potassium 4.1 Chloride 97 L Carbon Dioxide 23 Anion Gap 10 BUN 24 H Creatinine Cancelled 3.07 H Est GFR ( Amer) Cancelled 20 L Est GFR (Non-Af Amer) Cancelled 17 L Glucose 102 Calcium 8.8 Magnesium Cancelled 1.9 05/29/16 05/30/16 05/31/16 23:45 05:55 05:15 Creatine Kinase 31 CK-MB (CK-2) 1.81 1.71 Troponin I 0.069 0.094 05/31/16 05:15 Creatine Kinase CK-MB (CK-2) 1.46 Troponin I 0.079 Impressions: Chest/Abdomen CTA 05/29/16 18:00 IMPRESSION: No evidence for pulmonary embolic disease. Extensive chronic appearing changes as noted above. Small right pleural effusion is again identified which appears slightly larger than on the previous study. The previously described rounded masslike density in the right lower lobe is again identified. There is a central somewhat low density area and the possibility of a necrotic neoplasm or developing lung abscess cannot be excluded. Large pericardial effusion is again identified. Other findings as noted above Chest X-Ray 06/08/16 06:00 IMPRESSION: Stable appearance. Assessment & Plan - Diagnosis (1) Acute hypoxemic respiratory failure Is this a current diagnosis for this admission?: YesPlan: She has been extubated and looking well. (2) End stage renal disease Is this a current diagnosis for this admission?: YesPlan: Patient undergoing dialysis. Patient is fluid overloaded. We will plan to remove at least 2 L of fluid as tolerated. Orders were discussed with the treating nurse. (3) Lung abscess Qualifiers: Pulmonary abscess pneumonia presence: with pneumonia Laterality: right Lung location: unspecified part of lung Qualified Code(s): J85.1 - Abscess of lung with pneumonia Is this a current diagnosis for this admission?: NoPlan: Patient has recovered from septic shock. Patient on antibiotics. Monitor. (4) Lung cancer Qualifiers: Laterality: unspecified laterality Lung location: unspecified part of lung Qualified Code(s): C34.90 - Malignant neoplasm of unspecified part of unspecified bronchus or lung Is this a current diagnosis for this admission?: YesPlan: Has been seen at [facility] multiple times , but has had no definitive treatments done given the very poor prognosis and very poor serious comorbidities. (5) Septic shock Is this a current diagnosis for this admission?: Yes (7) Pulmonary fibrosis Is this a current diagnosis for this admission?: Yes (8) Scleroderma Is this a current diagnosis for this admission?: YesPlan: With severe comorbidities and complications of the disease. (9) Anemia Plan: Monitor. Adjust low-dose erythropoietin.
[2016-06-09] MEDS ORDERED: WATER IV ONE (18:00)
[2016-06-09] MEDS ORDERED: DEXTROSE 5% IV ONE (18:00)
[2016-06-09] MEDS ORDERED: VANCOMYCIN HCL IV ONE (18:00)
--- NOTE | 2016-06-09 18:04 | PDOC PROGRESS REPORT ---
Subjective Progress Note for:: 06/09/16 Subjective:: Patient was seen by the bedside, she is off mechanical ventilation she is alert and appropriate, she still have tachycardia and presently she can not leave ICU Physical Exam Vital Signs: Temp Pulse Resp BP Pulse Ox 98.5 F 112 H 23 H 133/107 H 100 06/09/16 16:00 06/09/16 16:00 06/09/16 16:02 06/09/16 16:02 06/09/16 16:30 Intake & Output 06/08/16 06/09/16 06/10/16 06:59 06:59 06:59 Intake Total 1784 800 Output Total 2812 2 3225 Balance -1028 798 -3225 Weight 61.3 kg 57.6 kg General appearance: PRESENT: no acute distress Eye exam: PRESENT: PERRLA Respiratory exam: PRESENT: clear to auscultation frankie Cardiovascular exam: PRESENT: +S1, +S2 GI/Abdominal exam: PRESENT: soft Results Laboratory Results: 06/09/16 06:00 06/09/16 06:00 06/08/16 06/08/16 06/09/16 17:54 22:25 06:00 WBC 13.0 H RBC 3.20 L Hgb 9.3 L Hct 29.4 L MCV 92 MCH 29.0 MCHC 31.6 L RDW 19.1 H Plt Count 256 Seg Neutrophils % 84.1 H Lymphocytes % 7.8 L Monocytes % 6.8 Eosinophils % 1.1 Basophils % 0.2 Absolute Neutrophils 10.9 H Absolute Lymphocytes 1.0 Absolute Monocytes 0.9 Absolute Eosinophils 0.1 Absolute Basophils 0.0 Carbonic Acid HCO3/H2CO3 Ratio ABG pH ABG pCO2 ABG pO2 ABG HCO3 ABG O2 Saturation ABG Base Excess FiO2 Sodium 122.4 L 128.2 L Potassium 3.9 3.9 Chloride 92 L 96 L Carbon Dioxide 25 25 Anion Gap 5 7 BUN 22 H 22 H Creatinine 2.64 H 2.74 H Est GFR ( Amer) 24 L 23 L Est GFR (Non-Af Amer) 20 L 19 L Glucose 409 H* 85 Calcium 7.9 L 8.6 Magnesium 06/09/16 06/09/16 06/09/16 06:00 06:00 06:00 WBC RBC Hgb Hct MCV MCH MCHC RDW Plt Count Seg Neutrophils % Lymphocytes % Monocytes % Eosinophils % Basophils % Absolute Neutrophils Absolute Lymphocytes Absolute Monocytes Absolute Eosinophils Absolute Basophils Carbonic Acid 1.44 H HCO3/H2CO3 Ratio 15:1 ABG pH 7.29 L ABG pCO2 47.8 H ABG pO2 119.8 H ABG HCO3 22.4 ABG O2 Saturation 97.9 ABG Base Excess -4.3 FiO2 4 L Sodium 130.0 L Potassium 4.1 Chloride 97 L Carbon Dioxide 23 Anion Gap 10 BUN 24 H Creatinine Cancelled 3.07 H Est GFR ( Amer) Cancelled 20 L Est GFR (Non-Af Amer) Cancelled 17 L Glucose 102 Calcium 8.8 Magnesium Cancelled 1.9 05/29/16 05/30/16 05/31/16 23:45 05:55 05:15 Creatine Kinase 31 CK-MB (CK-2) 1.81 1.71 Troponin I 0.069 0.094 05/31/16 05:15 Creatine Kinase CK-MB (CK-2) 1.46 Troponin I 0.079 Impressions: Chest/Abdomen CTA 05/29/16 18:00 IMPRESSION: No evidence for pulmonary embolic disease. Extensive chronic appearing changes as noted above. Small right pleural effusion is again identified which appears slightly larger than on the previous study. The previously described rounded masslike density in the right lower lobe is again identified. There is a central somewhat low density area and the possibility of a necrotic neoplasm or developing lung abscess cannot be excluded. Large pericardial effusion is again identified. Other findings as noted above Chest X-Ray 06/08/16 06:00 IMPRESSION: Stable appearance. Assessment & Plan - Diagnosis (1) Acute hypoxemic respiratory failure Is this a current diagnosis for this admission?: Yes (2) Lung cancer Qualifiers: Laterality: unspecified laterality Lung location: unspecified part of lung Qualified Code(s): C34.90 - Malignant neoplasm of unspecified part of unspecified bronchus or lung Is this a current diagnosis for this admission?: Yes (3) Lung abscess Qualifiers: Pulmonary abscess pneumonia presence: with pneumonia Laterality: right Lung location: unspecified part of lung Qualified Code(s): J85.1 - Abscess of lung with pneumonia Is this a current diagnosis for this admission?: No (4) End stage renal disease Is this a current diagnosis for this admission?: Yes (5) Cardiac arrest Is this a current diagnosis for this admission?: Yes (6) Cardiogenic shock Is this a current diagnosis for this admission?: Yes (7) Septic shock Is this a current diagnosis for this admission?: Yes
--- NOTE | 2016-06-09 21:18 | PROGRESS NOTE E ---
Progress Note NAME: FELISA MILES : 1975 AGE: 40Y DATE: 06/09/2016 ROOM: 608 The patient had undergone removal of CAPD catheter yesterday with local wound care at the exit site being performed. SUBJECTIVE: The patient only responds to pain stimuli. OBJECTIVE: The patient's small open wound on the left abdominal wall is clean without any evidence of infection. ASSESSMENT: Status post removal of infected CAPD catheter with wound site clean. PLAN: 1. Continue IV antibiotics per medicine service for intraabdominal infection with the CAPD catheter now being removed. 2. Continue local wound care. DICTATING PHYSICIAN: MATT ARTHUR M.D. [id number] PHY#: [id number] ID: [id number] JOB#: [id number] ACCT: [id number] cc: >
[2016-06-09] MEDS: LORAZEPAM INJ 2 MG/1 ML VIAL IV PRN (21:53)
[2016-06-10] MEDS: METOCLOPRAMIDE HCL INJ/PF 10 MG/2 ML SDV IV SCH ×3 (01:53→18:40)
--- NOTE | 2016-06-10 01:58 | PROGRESS NOTE E ---
Progress Note NAME: FELISA MILES : 1975 AGE: 40Y DATE: 06/08/2016 ROOM: 608 SUBJECTIVE: Patient is intubated but is not sedated, is awake. She is off the pressors. She is slightly tachycardic. She denies any chest pain or shortness of breath. There is no arrhythmia seen. The patient's lower extremity fluid is much less. On hemodialysis, the patient's Tenckhoff peritoneal dialysis catheter was removed and the dressing appears dry. OBJECTIVE: GENERAL: The patient is intubated but is not sedated and is not fighting the ventilator. She appears to be comfortable. She appears to be chronically ill and very ill-nourished. VITAL SIGNS: Temperature 99.6 degrees Fahrenheit, pulse is 119 beats per minute, blood pressure 124/77, respirations are 19 per minute on mechanical ventilator with FiO2 of 21%. HEENT: Head is normocephalic, atraumatic. Eyes: Pupils are equal, round, and reactive to light and accommodation. ENT is negative. NECK: Supple. There is JVD. Trachea is central. There is no cervical or axillary lymphadenopathy. Carotids are 2+ without any bruits. There is no goiter. LUNGS: Show leathery rales in the bases on both sides. HEART: S1, S2 is heard. There is no S3 gallop. There is no S4 gallop. There is a systolic murmur in the left sternal border and apex. There is no rub. ABDOMEN: Soft, nontender. There is no hepatosplenomegaly. Bowel sounds are well heard. EXTREMITIES: Pedal pulses are diminished. Femorals are diminished. There are no femoral bruits. There is 1- pedal edema bilaterally. There is no clubbing or cyanosis. NEUROLOGIC: The patient is awake, alert, oriented x3. Moves all 4 extremities. PSYCHIATRIC: Judgement and insight are not tested. DIAGNOSTIC DATA: White count is 9300, hemoglobin is 9.2, hematocrit is 28.1, platelet count is 216,000. Sodium 127.7, potassium 3.6, chloride 97, CO2 is 23, BUN 21, creatinine 2.46, GFR is reduced at 26 mL, which is still chronic kidney disease stage 4, still requiring hemodialysis. Glucose 74. Calcium 7.9. Magnesium 1.8. IMPRESSION: 1. Status post cardiac arrest with pulseless electrical activity. At present this is resolved and the patient is doing better and is going to be extubated. 2. Acute hypoxic respiratory failure, resolved. 3. End-stage renal disease. At present on dialysis. 4. Lung cancer - malignant neoplasm of the hilum of unspecified laterality. 5. Cardiomyopathy with severely reduced LV ejection fraction. 6. Hyponatremia. Most likely dilutional and secondary to heart failure, which is chronic systolic heart failure. 7. Pulmonary fibrosis. 8. Scleroderma. RECOMMENDATIONS: 1. Continue antibiotics. 2. Continue hemodialysis. 3. Continue Accu-Cheks before meals, t.i.d., and at bedtime. 4. Continue metoprolol. 5. Later when the patient is extubated, which the plan is later today that is on 06/08/16, we will try to increase the patient's beta antonia and her LUZ inhibitor. 6. Continue steroids, *------*, antibiotics. 7. Also in the past, the patient had a pericardial effusion. We will recheck an echo probably on 06/11/16 to see if there is any increase in the pericardial effusion. I also discussed this with the other caregiving providers. Medications reviewed. Also discussed with the patient's . TIME SPENT: Note, that 30 minutes spent on this patient with more than 50% of the time spent on direct patient care. We will follow with you. DICTATING PHYSICIAN: LAURA TOVAR M.D. [id number] FRANDY#: [id number] ID: [id number] JOB#: [id number] ACCT: [id number] cc: >
[2016-06-10] MEDS: DEXTROSE 50%-WATER SYRINGE 25 GM/50 ML DOSE IV PRN ×7 (02:08→22:35)
[2016-06-10] MEDS: HEPARIN SOD (PORCINE) 5,000 UNIT/ML 1 ML SYRINGE SUBCUT SCH ×3 (05:48→21:45)
[2016-06-10 06:26] LABS: ABSOLUTE BASOPHILS # (AUTO) 0.1 10^3/uL (0.0-0.2); ABSOLUTE EOSINOPHILS # (AUTO) 0.2 10^3/uL (0.0-0.6); ABSOLUTE LYMPHOCYTES (AUTO) 1.7 10^3/uL (0.5-4.7); ABSOLUTE NEUT (AUTO) 10.1 10^3/uL (1.7-8.2); BASOPHILS % (AUTO) 0.5 % (0-2); EOSINOPHILS % (AUTO) 1.3 % (0-6); HEMATOCRIT 28.8 % (36.0-47.0); HEMOGLOBIN 9.1 g/dL (12.0-15.5); HGB HCT DIFFERENCE -1.5; LYMPHOCYTES % (AUTO) 13.2 % (13-45); MEAN CORPUSCULAR HEMOGLOBIN 29.1 pg (27.0-33.4); MEAN CORPUSCULAR HGB CONC 31.7 g/dL (32.0-36.0); MEAN CORPUSCULAR VOLUME 92 fl (80-97); MONOCYTES % (AUTO) 7.6 % (3-13); RED BLOOD COUNT 3.14 10^6/uL (3.72-5.28); RED CELL DISTRIBUTION WIDTH 18.7 % (11.5-14.0); SEGMENTED NEUTROPHILS % (AUTO) 77.4 % (42-78); WHITE BLOOD COUNT 13.1 10^3/uL (4.0-10.5)
[2016-06-10 06:43] LABS: ANION GAP 8 (5-19); BLOOD UREA NITROGEN 14 mg/dL (7-20); CALCIUM 8.6 mg/dL (8.4-10.2); CARBON DIOXIDE 30 mmol/L (22-30); CHLORIDE 100 mmol/L (98-107); CREATININE RESULT 2.33 mg/dL (0.52-1.25); GLUCOSE 66 mg/dL (75-110); MAGNESIUM 1.7 mg/dL (1.6-2.3); PHOSPHORUS 4.6 mg/dL (2.5-4.5); POTASSIUM 3.9 mmol/L (3.6-5.0); SODIUM 138.1 mmol/L (137-145)
[2016-06-10] MEDS: LORAZEPAM INJ 2 MG/1 ML VIAL IV PRN (07:14)
[2016-06-10] MEDS: IPRATROPIUM/ALBUTEROL 0.5-2.5 MG/3 ML AMPUL NEB PRN (09:32)
[2016-06-10] MEDS: CARVEDILOL 3.125 MG TABLET NG SCH ×2 (10:54→21:50)
[2016-06-10] MEDS: RAMIPRIL 1.25 MG CAPSULE PO SCH ×2 (10:54→21:50)
[2016-06-10] MEDS ORDERED: LIDOCAINE 1% INJ-PF (10 MG/ML) 30 ML SDV ONE (11:15)
[2016-06-10 12:42] LABS: ARTERIAL BLOOD BASE EXCESS 1.1 mmol/L; ARTERIAL BLOOD O2 SATURATION 99.3 % (94-98)
--- NOTE | 2016-06-10 13:23 | PDOC PROGRESS REPORT ---
Subjective Progress Note for:: 06/09/16 Subjective:: 24 hours status post extubation doing well Physical Exam Vital Signs: Temp Pulse Resp BP Pulse Ox 97.5 F 105 H 18 134/82 H 100 06/09/16 08:00 06/09/16 08:00 06/09/16 08:00 06/09/16 08:00 06/09/16 08:00 Intake & Output 06/08/16 06/09/16 06/10/16 06:59 06:59 06:59 Intake Total 1784 800 Output Total 2812 2 0 Balance -1028 798 0 Weight 61.3 kg 57.6 kg General appearance: PRESENT: no acute distress, disheveled, thin, other - Cachectic Head exam: PRESENT: atraumatic, normocephalic Eye exam: PRESENT: conjunctiva pale, EOMI Mouth exam: PRESENT: dry mucosa Neck exam: ABSENT: carotid bruit, JVD, lymphadenopathy, thyromegaly Respiratory exam: PRESENT: decreased breath sounds, prolonged expiratory phas, rales, rhonchi, symmetrical, unlabored Cardiovascular exam: PRESENT: irregular rhythm GI/Abdominal exam: PRESENT: normal bowel sounds, soft. ABSENT: distended, guarding, mass, organolmegaly, rebound, tenderness Rectal exam: PRESENT: deferred Gentrourinary exam: PRESENT: indwelling catheter Musculoskeletal exam: PRESENT: normal inspection Neurological exam: PRESENT: alert, awake Psychiatric exam: PRESENT: normal mood Skin exam: PRESENT: dry, warm, other - Serosanguineous fluid draining from the site of the femoral triple-lumen catheter Results Laboratory Results: 06/09/16 06:00 06/09/16 06:00 06/08/16 06/08/16 06/09/16 17:54 22:25 06:00 WBC 13.0 H RBC 3.20 L Hgb 9.3 L Hct 29.4 L MCV 92 MCH 29.0 MCHC 31.6 L RDW 19.1 H Plt Count 256 Seg Neutrophils % 84.1 H Lymphocytes % 7.8 L Monocytes % 6.8 Eosinophils % 1.1 Basophils % 0.2 Absolute Neutrophils 10.9 H Absolute Lymphocytes 1.0 Absolute Monocytes 0.9 Absolute Eosinophils 0.1 Absolute Basophils 0.0 Carbonic Acid HCO3/H2CO3 Ratio ABG pH ABG pCO2 ABG pO2 ABG HCO3 ABG O2 Saturation ABG Base Excess FiO2 Sodium 122.4 L 128.2 L Potassium 3.9 3.9 Chloride 92 L 96 L Carbon Dioxide 25 25 Anion Gap 5 7 BUN 22 H 22 H Creatinine 2.64 H 2.74 H Est GFR ( Amer) 24 L 23 L Est GFR (Non-Af Amer) 20 L 19 L Glucose 409 H* 85 Calcium 7.9 L 8.6 Magnesium 06/09/16 06/09/16 06/09/16 06:00 06:00 06:00 WBC RBC Hgb Hct MCV MCH MCHC RDW Plt Count Seg Neutrophils % Lymphocytes % Monocytes % Eosinophils % Basophils % Absolute Neutrophils Absolute Lymphocytes Absolute Monocytes Absolute Eosinophils Absolute Basophils Carbonic Acid 1.44 H HCO3/H2CO3 Ratio 15:1 ABG pH 7.29 L ABG pCO2 47.8 H ABG pO2 119.8 H ABG HCO3 22.4 ABG O2 Saturation 97.9 ABG Base Excess -4.3 FiO2 4 L Sodium 130.0 L Potassium 4.1 Chloride 97 L Carbon Dioxide 23 Anion Gap 10 BUN 24 H Creatinine Cancelled 3.07 H Est GFR ( Amer) Cancelled 20 L Est GFR (Non-Af Amer) Cancelled 17 L Glucose 102 Calcium 8.8 Magnesium Cancelled 1.9 05/29/16 05/30/16 05/31/16 23:45 05:55 05:15 Creatine Kinase 31 CK-MB (CK-2) 1.81 1.71 Troponin I 0.069 0.094 05/31/16 05:15 Creatine Kinase CK-MB (CK-2) 1.46 Troponin I 0.079 Impressions: Chest/Abdomen CTA 05/29/16 18:00 IMPRESSION: No evidence for pulmonary embolic disease. Extensive chronic appearing changes as noted above. Small right pleural effusion is again identified which appears slightly larger than on the previous study. The previously described rounded masslike density in the right lower lobe is again identified. There is a central somewhat low density area and the possibility of a necrotic neoplasm or developing lung abscess cannot be excluded. Large pericardial effusion is again identified. Other findings as noted above Chest X-Ray 06/08/16 06:00 IMPRESSION: Stable appearance. Assessment & Plan - Diagnosis (1) Acute hypoxemic respiratory failure Is this a current diagnosis for this admission?: YesPlan: Oxygenating well unfortunately appears to be new onset of some ventilatory failure (2) End stage renal disease Is this a current diagnosis for this admission?: YesPlan: Improving creatinine and BUN (3) Lung abscess Qualifiers: Pulmonary abscess pneumonia presence: with pneumonia Laterality: right Lung location: unspecified part of lung Qualified Code(s): J85.1 - Abscess of lung with pneumonia Is this a current diagnosis for this admission?: No (4) Lung cancer Qualifiers: Laterality: unspecified laterality Lung location: unspecified part of lung Qualified Code(s): C34.90 - Malignant neoplasm of unspecified part of unspecified bronchus or lung Is this a current diagnosis for this admission?: YesPlan: diagnosed 3b [facility] cancer (5) Scleroderma Is this a current diagnosis for this admission?: YesPlan: Failed swallowing test typical for end-stage scleroderma PEG is recommended by speech path - Time Critical Time spent with patient: 35 or more minutes
--- NOTE | 2016-06-10 13:27 | PDOC PROGRESS REPORT ---
Subjective Progress Note for:: 06/10/16 Subjective:: 48 hours status post extubation patient is obviously weakening Physical Exam Vital Signs: Temp Pulse Resp BP Pulse Ox 98.0 F 118 H 17 124/105 H 100 06/10/16 08:00 06/10/16 09:20 06/10/16 08:00 06/10/16 08:00 06/10/16 08:00 Intake & Output 06/09/16 06/10/16 06/11/16 06:59 06:59 06:59 Intake Total 800 200 Output Total 2 3225 Balance 798 -3025 Weight 57.6 kg 53.5 kg General appearance: PRESENT: disheveled, other - Cachectic Head exam: PRESENT: atraumatic, normocephalic Eye exam: PRESENT: conjunctiva pale, EOMI Mouth exam: PRESENT: dry mucosa Neck exam: ABSENT: carotid bruit, JVD, lymphadenopathy, thyromegaly Respiratory exam: PRESENT: decreased breath sounds, prolonged expiratory phas, rales, rhonchi, symmetrical, unlabored Cardiovascular exam: PRESENT: irregular rhythm Pulses: PRESENT: normal radial pulses GI/Abdominal exam: PRESENT: normal bowel sounds, soft. ABSENT: distended, guarding, mass, organolmegaly, rebound, tenderness Rectal exam: PRESENT: deferred Gentrourinary exam: PRESENT: indwelling catheter Musculoskeletal exam: PRESENT: normal inspection Neurological exam: PRESENT: alert, awake Psychiatric exam: PRESENT: flat affect, normal mood Skin exam: PRESENT: dry, warm, other - Serosanguineous fluid draining from prior triple-lumen site as well as prior A-line site Results Laboratory Results: 06/10/16 06:10 06/10/16 06:10 06/10/16 06/10/16 06:10 06:10 WBC 13.1 H RBC 3.14 L Hgb 9.1 L Hct 28.8 L MCV 92 MCH 29.1 MCHC 31.7 L RDW 18.7 H Plt Count 258 Seg Neutrophils % 77.4 Lymphocytes % 13.2 Monocytes % 7.6 Eosinophils % 1.3 Basophils % 0.5 Absolute Neutrophils 10.1 H Absolute Lymphocytes 1.7 Absolute Monocytes 1.0 Absolute Eosinophils 0.2 Absolute Basophils 0.1 Sodium 138.1 Potassium 3.9 Chloride 100 Carbon Dioxide 30 Anion Gap 8 BUN 14 Creatinine 2.33 H Est GFR ( Amer) 28 L Est GFR (Non-Af Amer) 23 L Glucose 66 L Calcium 8.6 Phosphorus 4.6 H Magnesium 1.7 05/29/16 05/30/16 05/31/16 23:45 05:55 05:15 Creatine Kinase 31 CK-MB (CK-2) 1.81 1.71 Troponin I 0.069 0.094 05/31/16 05:15 Creatine Kinase CK-MB (CK-2) 1.46 Troponin I 0.079 Impressions: Chest/Abdomen CTA 05/29/16 18:00 IMPRESSION: No evidence for pulmonary embolic disease. Extensive chronic appearing changes as noted above. Small right pleural effusion is again identified which appears slightly larger than on the previous study. The previously described rounded masslike density in the right lower lobe is again identified. There is a central somewhat low density area and the possibility of a necrotic neoplasm or developing lung abscess cannot be excluded. Large pericardial effusion is again identified. Other findings as noted above Chest X-Ray 06/10/16 06:00 IMPRESSION: CARDIOMEGALY WITH VASCULAR CONGESTION. DECREASE IN THE RIGHT PLEURAL EFFUSION. Assessment & Plan - Diagnosis (1) Acute hypoxemic respiratory failure Is this a current diagnosis for this admission?: YesPlan: Oxygenating well unfortunately; we will initiate BiPAP for ventilatory failure requested consult from Dr. Shari Lawler surgeon for arterial line placement this patient has declined reoccurring arterial blood gases (2) End stage renal disease Is this a current diagnosis for this admission?: Yes (3) Lung abscess Qualifiers: Pulmonary abscess pneumonia presence: with pneumonia Laterality: right Lung location: unspecified part of lung Qualified Code(s): J85.1 - Abscess of lung with pneumonia Is this a current diagnosis for this admission?: No (4) Lung cancer Qualifiers: Laterality: unspecified laterality Lung location: unspecified part of lung Qualified Code(s): C34.90 - Malignant neoplasm of unspecified part of unspecified bronchus or lung Is this a current diagnosis for this admission?: Yes (5) Scleroderma Is this a current diagnosis for this admission?: YesPlan: Failed swallowing test typical for end-stage scleroderma PEG is recommended by speech path - Time Critical Time spent with patient: 35 or more minutes
--- NOTE | 2016-06-10 14:13 | PROGRESS NOTE E ---
Progress Note NAME: FELISA MILES : 1975 AGE: 40Y DATE: 06/09/2016 ROOM: 608 SUBJECTIVE: Note that the patient was extubated yesterday. She is awake, alert, oriented x3 without any complaints of chest pain or shortness of breath. There are no arrhythmias. She still has some leg edema present. There are no arrhythmias seen on the monitor. Also, the patient is not able to swallow well. OBJECTIVE: GENERAL: On examination, she appears to be chronically ill and very ill-nourished and malnourished. VITAL SIGNS: She is afebrile with a temperature of 97.8 degrees Fahrenheit, pulse is 96 beats per minute, blood pressure 130/74, respirations are 12 per minute, 02 saturations are 100% on 4 L nasal cannula. HEENT: Head is normocephalic, atraumatic. Eyes: Pupils are equal, round, regular and reactive to light and accommodation. ENT is negative. NECK: Supple. There is no JVD. Trachea is central. There is no cervical or axillary lymphadenopathy. Carotids are 2+ without any bruits. There is no goiter. LUNGS: Leathery rales in the bases on both sides. HEART: S1, S2 heard. There is no S3 gallop. There is no S4 gallop. There is a systolic murmur in the left sternal border and apex. There are no rubs. ABDOMEN: Soft, nontender. There is no hepatosplenomegaly. Bowel sounds are well heard. EXTREMITIES: Pedal pulses are diminished. Femorals are diminished. There are no femoral bruits. There is 1- pedal edema bilaterally. There is no clubbing or cyanosis. CENTRAL NERVOUS SYSTEM: The patient is conscious, awake, alert, oriented x3 with no focal deficits. PSYCHIATRIC: Judgment and insight are intact. Her affect appears to be slightly depressed. DIAGNOSTIC DATA: The patient's white count is 13,000; hemoglobin is 9.3; hematocrit is 29.4; platelet count is 256,000. The patient's sodium is 130, potassium 4.1, chloride 97, CO2 is 28. The patient's BUN is 24, creatinine is 3.07. GFR is reduced at 20 mL. The patient's glucose is 102. The patient's calcium is 8.8. Magnesium is 1.9. The patient's ABG shows pH of 7.29, pCO2 is slightly elevated at 47.8, pO2 is 119.8. O2 sats are 97.0 on 4 L of nasal cannula. IMPRESSION: 1. END-STAGE RENAL DISEASE ON DIALYSIS. 2. LUNG CANCER WITH MALIGNANCY IN THE HILUM OF UNSPECIFIED LATERALITY. 3. SCLERODERMA. 4. CARDIOMYOPATHY WITH SEVERELY DEPRESSED LV EJECTION FRACTION. 5. PULMONARY FIBROSIS. 6. CHRONIC HYPERCAPNIC RESPIRATORY FAILURE. 7. STATUS POST SEPTIC SHOCK. 8. HYPONATREMIA. RECOMMENDATION: 1. Continue hemodialysis. 2. Continue IV antibiotics. 3. Note, once the patient is able to take orally after swallowing test to be scheduled tomorrow, then would start the patient on LUZ inhibitor and beta antonia. Note, 25 minute spent on the patient with more than 50% of time spent in direct patient care and also discussions with other caregiving providers on the case. We will follow with you. DICTATING PHYSICIAN: LAURA TOVAR M.D. [id number] ALLISONY#: [id number] ID: [id number] JOB#: [id number] ACCT: [id number] cc: >
--- NOTE | 2016-06-10 14:17 | Operative Report ---
Operative Report DATE OF SURGERY: 05/30/16 PREOPERATIVE DIAGNOSIS: poor arterial access POSTOPERATIVE DIAGNOSIS: same OPERATION: arterial line SURGEON: YAMINI SOARES OUTSOLE MOLDER: NONE ANESTHESIA: Local TISSUE REMOVED OR ALTERED: na COMPLICATIONS: NONE ESTIMATED BLOOD LOSS: 2 cc INTRAOPERATIVE FINDINGS: Of severe scleroderma to the hands with limited mobility. Inability to do a full Clay test. Ultrasound of the radial shows it to be the dominant artery and the ulnar a satisfactory as well. Satisfactory access gained into the left radial artery with ultrasound assistance. Satisfactory function of the catheter. Given the circumstances a very small catheter was utilized, the inner cannula of a micropuncture kit probably about 21-gauge. Satisfactory wave form and blood egress obtained. PROCEDURE: After obtaining informed consent the patient's left wrist was extended and prepared with Betadine solution and draped out with sterile linen. A steriley sheathed ultrasound probe was used to evaluate the arteries. Its to be noted that prior to this an Clay test was attempted, unsuccessful because of the patient's severe scleroderma and limited and mobility. Local anesthesia was obtained and access into the artery on ultrasound guidance attempted. At this point having used a regular arterial catheters it was thought best to use a micropuncture kit. Micropuncture needle was introduced into the artery and with a good E fluent of blood micropuncture wire and then the inner Cannula of the micropuncture catheter. This was anchored using 4-0 Prolene. Dressings applied over Betadine ointment. The catheter affixed to the arterial line setup. After ascertaining that there was good triphasic waveform with satisfactory signals the procedure was concluded. The catheter was taped up nicely to the skin.
[2016-06-10] MEDS: MORPHINE SULFATE 10 MG/ML INJ IV PRN (19:29)
--- NOTE | 2016-06-10 20:47 | PDOC PROGRESS REPORT ---
Subjective Progress Note for:: 06/10/16 Subjective:: Patient was seen by the bedside, the biggest challenge now is nutrition, she was seen by speech earlier today and the plan is for to get modified barium swallow test that could not be done today because she was on BiPAP machine at the time Physical Exam Vital Signs: Temp Pulse Resp BP Pulse Ox 98.4 F 112 H 25 H 148/102 H 97 06/10/16 19:50 06/10/16 16:00 06/10/16 19:02 06/10/16 19:02 06/10/16 19:02 Intake & Output 06/09/16 06/10/16 06/11/16 06:59 06:59 06:59 Intake Total 800 200 250 Output Total 2 3225 1 Balance 798 -3025 249 Weight 57.6 kg 53.5 kg General appearance: PRESENT: thin Respiratory exam: PRESENT: crackles Cardiovascular exam: PRESENT: +S1, +S2 GI/Abdominal exam: PRESENT: soft Neurological exam: PRESENT: alert Results Laboratory Results: 06/10/16 06:10 06/10/16 06:10 06/10/16 06/10/16 06/10/16 06:10 06:10 12:15 WBC 13.1 H RBC 3.14 L Hgb 9.1 L Hct 28.8 L MCV 92 MCH 29.1 MCHC 31.7 L RDW 18.7 H Plt Count 258 Seg Neutrophils % 77.4 Lymphocytes % 13.2 Monocytes % 7.6 Eosinophils % 1.3 Basophils % 0.5 Absolute Neutrophils 10.1 H Absolute Lymphocytes 1.7 Absolute Monocytes 1.0 Absolute Eosinophils 0.2 Absolute Basophils 0.1 Carbonic Acid 1.36 H HCO3/H2CO3 Ratio 19:1 ABG pH 7.38 ABG pCO2 45.2 H ABG pO2 198.1 H ABG HCO3 26.4 H ABG O2 Saturation 99.3 H ABG Base Excess 1.1 FiO2 50% Sodium 138.1 Potassium 3.9 Chloride 100 Carbon Dioxide 30 Anion Gap 8 BUN 14 Creatinine 2.33 H Est GFR ( Amer) 28 L Est GFR (Non-Af Amer) 23 L Glucose 66 L Calcium 8.6 Phosphorus 4.6 H Magnesium 1.7 05/29/16 05/30/16 05/31/16 23:45 05:55 05:15 Creatine Kinase 31 CK-MB (CK-2) 1.81 1.71 Troponin I 0.069 0.094 05/31/16 05:15 Creatine Kinase CK-MB (CK-2) 1.46 Troponin I 0.079 Impressions: Chest/Abdomen CTA 05/29/16 18:00 IMPRESSION: No evidence for pulmonary embolic disease. Extensive chronic appearing changes as noted above. Small right pleural effusion is again identified which appears slightly larger than on the previous study. The previously described rounded masslike density in the right lower lobe is again identified. There is a central somewhat low density area and the possibility of a necrotic neoplasm or developing lung abscess cannot be excluded. Large pericardial effusion is again identified. Other findings as noted above Chest X-Ray 06/10/16 06:00 IMPRESSION: CARDIOMEGALY WITH VASCULAR CONGESTION. DECREASE IN THE RIGHT PLEURAL EFFUSION. Assessment & Plan - Diagnosis (1) Acute hypoxemic respiratory failure Is this a current diagnosis for this admission?: Yes (2) Lung cancer Qualifiers: Laterality: unspecified laterality Lung location: unspecified part of lung Qualified Code(s): C34.90 - Malignant neoplasm of unspecified part of unspecified bronchus or lung Is this a current diagnosis for this admission?: Yes (3) Lung abscess Qualifiers: Pulmonary abscess pneumonia presence: with pneumonia Laterality: right Lung location: unspecified part of lung Qualified Code(s): J85.1 - Abscess of lung with pneumonia Is this a current diagnosis for this admission?: No (4) End stage renal disease Is this a current diagnosis for this admission?: Yes (5) Cardiac arrest Is this a current diagnosis for this admission?: Yes (6) Cardiogenic shock Is this a current diagnosis for this admission?: Yes (7) Septic shock Is this a current diagnosis for this admission?: Yes
--- NOTE | 2016-06-10 21:33 | PROGRESS NOTE E ---
Progress Note NAME: FELISA MILES : 1975 AGE: 40Y DATE: 06/10/2016 ROOM: 608 SUBJECTIVE: Note that the patient had a little breathing difficulty and she has had BiPAP on. She is a little somnolent compared to yesterday but denies any chest pain or discomfort. She does not want ABGs done and an A-line has been ordered. The patient denies any chest pain or discomfort. On monitor there is sinus tachycardia. OBJECTIVE: GENERAL: On examination, she appears to be chronically ill and very ill-nourished and malnourished. VITAL SIGNS: She is afebrile with a temperature of 98.4 degrees Fahrenheit, pulse is 106 beats per minute, blood pressure 156/97, respirations are 12 per minute, 02 saturations are 99% on BiPAP with FiO2 of 40%. HEENT: Head is normocephalic, atraumatic. Eyes: Pupils are equal, round, regular and reactive to light and accommodation. ENT is negative. NECK: Supple. There is no JVD. Trachea is central. There is no cervical or axillary lymphadenopathy. Carotids are 2+ without any bruits. There is no goiter. LUNGS: Show leathery rales in the bases on both sides. HEART: S1, S2 heard. There is no S3 gallop. There is no S4 gallop. There is a systolic murmur in the left sternal border and apex. There are no rub. ABDOMEN: Soft, nontender. There is no hepatosplenomegaly. Bowel sounds are well heard. EXTREMITIES: Pedal pulses are diminished. Femorals are diminished. There are no femoral bruits. There is 1- pedal edema bilaterally. There is no clubbing or cyanosis. CENTRAL NERVOUS SYSTEM: The patient is conscious, slightly drowsy but oriented x3 with no focal deficits. PSYCHIATRIC: Not done. DIAGNOSTIC DATA: The patient's chest x-ray shows bilateral opacities relatively unchanged, decreased in the right pleural effusion. There is cardiomegaly and vascular congestion. The patient's white count is 13,100; hemoglobin is 3.14; hematocrit is 9.1; platelet count is 258,000. The patient's sodium is 138.1, potassium 3.9, chloride 100, CO2 is 30, the patient's BUN is 14, creatinine is 2.33, GFR is reduced at 28 mL and the patient's calcium is 8.6. Magnesium is 1.7, phosphorus 4.6. IMPRESSION: 1. END-STAGE RENAL DISEASE ON DIALYSIS. Now the GFR is improved to 28, which is stage 4 CKD. 2. LUNG CANCER WITH MALIGNANCY IN THE HILUM OF UNSPECIFIED LATERALITY. 3. SCLERODERMA. 4. CARDIOMYOPATHY WITH SEVERELY DEPRESSED LV EJECTION FRACTION. 5. PULMONARY FIBROSIS. 6. CHRONIC HYPERCAPNIC RESPIRATORY FAILURE. 7. STATUS POST SEPTIC SHOCK. Now extubated, patient off pressors. 8. HYPONATREMIA WHICH HAS BEEN CORRECTED. 9. DYSPHAGIA, AND HENCE THE PATIENT IS N.P.O. RECOMMENDATION: 1. Need to make decision about PEG tube feeding and in the meantime would recommend feed the patient with NG tube. 2. Continue antibiotics and hemodialysis as per nephrology. The patient is having a swallow test today. Once the patient is able to swallow or if an NG tube or a PEG tube is placed, then we can restart the patient on Coreg and LUZ inhibitor. 3. Discussed with the patient and the patient's . 4. Discussed with the attending physician on the case. 5. Will follow with you. Note, 30 minute spent on the patient with more than 50% of time spent in direct patient care and also discussions with the patient's and also with the other attending physicians on the case. Will follow with you. DICTATING PHYSICIAN: LAURA TOVAR M.D. [id number] FRANDY#: [id number] ID: [id number] JOB#: [id number] ACCT: [id number] cc: >
[2016-06-10] MEDS: METOPROLOL TARTRATE PF/INJ 5 MG/5 ML SDV IV PRN (21:44)
[2016-06-11] MEDS: DEXTROSE 50%-WATER SYRINGE 25 GM/50 ML DOSE IV PRN ×7 (00:41→22:41)
[2016-06-11] MEDS: METOCLOPRAMIDE HCL INJ/PF 10 MG/2 ML SDV IV SCH ×3 (03:00→17:41)
[2016-06-11] MEDS: MORPHINE SULFATE 10 MG/ML INJ IV PRN ×2 (03:23→06:44)
[2016-06-11] MEDS: HEPARIN SOD (PORCINE) 5,000 UNIT/ML 1 ML SYRINGE SUBCUT SCH ×3 (06:10→22:41)
[2016-06-11 06:15] LABS: ARTERIAL BLOOD BASE EXCESS 1.6 mmol/L; ARTERIAL BLOOD O2 SATURATION 96.4 % (94-98)
[2016-06-11 06:16] LABS: ABSOLUTE BASOPHILS # (AUTO) 0.1 10^3/uL (0.0-0.2); ABSOLUTE EOSINOPHILS # (AUTO) 0.2 10^3/uL (0.0-0.6); ABSOLUTE LYMPHOCYTES (AUTO) 1.2 10^3/uL (0.5-4.7); ABSOLUTE NEUT (AUTO) 10.7 10^3/uL (1.7-8.2); BASOPHILS % (AUTO) 0.7 % (0-2); EOSINOPHILS % (AUTO) 1.4 % (0-6); HEMATOCRIT 28.1 % (36.0-47.0); HEMOGLOBIN 8.9 g/dL (12.0-15.5); HGB HCT DIFFERENCE -1.4; LYMPHOCYTES % (AUTO) 9.4 % (13-45); MEAN CORPUSCULAR HEMOGLOBIN 28.9 pg (27.0-33.4); MEAN CORPUSCULAR HGB CONC 31.7 g/dL (32.0-36.0); MEAN CORPUSCULAR VOLUME 91 fl (80-97); MONOCYTES % (AUTO) 7.4 % (3-13); RED BLOOD COUNT 3.08 10^6/uL (3.72-5.28); SEGMENTED NEUTROPHILS % (AUTO) 81.1 % (42-78); WHITE BLOOD COUNT 13.2 10^3/uL (4.0-10.5)
[2016-06-11 06:25] LABS: ANION GAP 9 (5-19); BLOOD UREA NITROGEN 16 mg/dL (7-20); CALCIUM 8.3 mg/dL (8.4-10.2); CARBON DIOXIDE 26 mmol/L (22-30); CHLORIDE 103 mmol/L (98-107); CREATININE RESULT 2.76 mg/dL (0.52-1.25); GLUCOSE 68 mg/dL (75-110); MAGNESIUM 1.7 mg/dL (1.6-2.3); POTASSIUM 3.9 mmol/L (3.6-5.0); SODIUM 138.1 mmol/L (137-145)
[2016-06-11] MEDS: RAMIPRIL 1.25 MG CAPSULE PO SCH ×2 (09:24→22:41)
[2016-06-11] MEDS: CARVEDILOL 3.125 MG TABLET NG SCH ×2 (09:24→22:40)
[2016-06-11] MEDS ORDERED: EPOETIN ALFA INJ 20000 UNIT/1 ML VIAL (RENAL) IV PRN (10:02)
[2016-06-11] MEDS ORDERED: HEPARIN SOD (PORCINE) 1,000 UNIT/ML 10 ML VIAL IV PRN ×2 (10:03→10:15)
[2016-06-11] MEDS: IPRATROPIUM/ALBUTEROL 0.5-2.5 MG/3 ML AMPUL NEB PRN ×2 (10:54→15:59)
[2016-06-11] MEDS: METOPROLOL TARTRATE PF/INJ 5 MG/5 ML SDV IV PRN ×2 (11:49→20:07)
--- NOTE | 2016-06-11 12:32 | ST Modified Barium Swallow ---
Recommendation - Recommendations Recommendations: 1) Recommend mechanical soft ground meats and thin liquids. 2 ) Aspiration precautions, No straws. 3) Alternate bites and sips. 4) Dry swallow after bites of thin. SUMMARY: Pt presents with mild-moderate oropharyngeal dysphagia. Pt observed to hold liquid and solid bolus in oral cavity occasionally throughout study. Flash penetration of puree. No aspiration observed during the study. Mild residuals of thin pooling to valleculae and pyriforms. Mild-moderate residuals of puree pooling from valleculae to pyriforms. Residuals observed to clear with alternating bites and sips and dry swallow after sips of thin. Medical Diagnoses - Medical Diagnoses Medical Diagnosis Description & ICD-10 Code(s): scleroderma, bronchitis Other Medical Diagnoses/Co-Morbidities: Current admit: cardiac arrest, respiratory failure. PMhx: pneumonia, scleraderma ST Modified Barium Swallow - General Referring Physician: Dr. Saleem Risks/Precautions: Falls, Aspiration - History -: ST - Patient reports recurrent pneumonias from onset of her diagnosis with scleraderma in 2007. Patient reports difficulty swallowing solids, globus sensations. Patient has a history of hiatal hernia and is on prevacid. Medications: Medical record reviewed. Per medical report. - Fall Risk Assessment Medications/Conditions that increase fall risks include: Antidepressants, sedatives, anti-arrhythmic, diuretic, benzodiazipenes, neuroleptics. BP regulation problems, cardiac problems, balance or gait deficits, neurological problems. Is patient considered at risk for falls: yes - Per medical record, listed as fall risk. - Treatment / Educational Needs: Treatment/Education Needs: Treatment consisted of patient education on the role of the Speech Pathologist. Patient's plan of care and golas were communicated as well as scheduling and attendance policies. Recommendations for initial home program were shared. Patient demonstrated understanding and verbalized agreement. - Plan of Care Strategies to optimize patient understanding include:: ongoing assessment of educational needs, implementation of educational strategies, and re-education. - - -: Thank you for the opportunity to work with this patient and his/her family. Should you have any questions about this patient's plan or progress, I can be reached at [phone]. [facility]. Impairment Category - Swallowing Current G8996: CJ 20-39% Impaired Goal G8997: CJ 20-39% Impaired Discharge G8998: CJ 20-39% Impaired
--- NOTE | 2016-06-11 12:42 | ST Inp Modified Barium Swallow ---
Medical Diagnosis - Medical Diagnoses Medical Diagnosis Description & ICD-10 Code(s): history of dysphagia - ICD-10 Tx Diagnosis Coding (1) Dysphagia, oral phase ICD-10 Code(s): R13.11 - DYSPHAGIA, ORAL PHASE (2) Dysphagia, oropharyngeal phase ICD-10 Code(s): R13.12 - DYSPHAGIA, OROPHARYNGEAL PHASE (3) Dysphagia, pharyngeal phase ICD-10 Code(s): R13.13 - DYSPHAGIA, PHARYNGEAL PHASE ST Inpatient MBS - General Date: 06/11/16 Date of Onset: 05/29/16 - History History Obtained From: Patient - per EMR -: Medical - per EMR; s/p cardiac arrest, acute hypoxic respiratory failure, ESRD, lung CA, cardiomyopathy, hyponatremia, pulmonary fibrosis, scleroderma. Intubation from 05/29/16-06/08/16. Chest xray shows cardiomegaly with vascular congestion, decrease right pleural effusion. Pt seen for MBSS on 02/23/16 with mild-moderate dysphagia diet recommendation with complex safe feeding strategies , pt at high risk of aspiration. Pt recently intubated and seen at bedside with s/sx of aspiration. Per RN pt receiving leena at [facility] however discontinued due to pt not able to tolerate. PMHx: DVT, HLD, HTN, asthma, PNA, ESRD, lung CA, GERD, gout. Medications: Medications Reviewed Allergies: Refer to medical record - Subjective Current Nutritional Means: NPO Current PO Diet: N/A (NPO) Pain: 0/5 - Objective Assessment: Upright, Left Lateral - Food Trials Food Trials Used: Thin liquids, Pureed, Soft solids The Patient: fed by ST - Assessment Labial Function: Impaired - poor labial seal Lingual Function: Impaired - discordinated, perseverative Mandibular Function: Impaired - prolonged chew, holding bolus in mouth Dentition: Partial Velo-Pharyngeal Function: Unremarkable Laryngeal Function: Throat Clear, Weak Cough - Pharyngeal Stage Initiation of Pharyngeal Stage: Normal Decreased Laryngeal Elevation: Yes - mild-moderate Reduced Velo-Pharyngeal Closure: no Reduced Pressure Generation: Yes - mild Reduced Tongue Base Retraction: Yes - mild-moderate Pre-Swallowing Pooling in Valleculae: None Pre-Swallowing Pooling in Pyriforms: None Reduced Thyro-Hyiod Approximation: Yes - mild Reduced Epiglottic Excursion: No Reduced Pharyngeal Peristalsis: No Post Swallow Residuals in Valleculae: Mild Post Swallow Residuals in Pyriforms: Mild - Impression/Summary Laryngeal Penetration: Yes, Flash - on puree, Silent, during swallow Tracheal Aspiration: no Patient Presents With: Oral stage dysphagia, Pharyngeal stage dysph., Oral- Pharyngeal dysph. Risk of Aspiration: Moderate Risk of Nutritional Compromise: Severe - pt taking very small bites - Recommendations NPO: no Solid Diet Recommendations: Mechanical Soft, Ground Meat Liquid Diet Recommendations: Thin Strict Aspitarion Precautions: Yes Dysphagia Therapy with SERVICE CONTROL OPERATOR: Yes Recommended Techniques: Fully Upright During Meal, Small Bites and Sips, Alternate Bites/Sips - & dry swallow after sips of thin Supervision: requires assistance Other Recommendations: 1) Recommend mechanical soft ground meats and thin liquids. 2) Aspiration precautions, No straws. 3) Alternate bites and sips. 4 ) Dry swallow after bites of thin. 5) ST to follow for treatment in acute care x2 a week. SUMMARY: Pt presents with mild-moderate oropharyngeal dysphagia. Pt observed to hold liquid and solid bolus in oral cavity occasionally throughout study. Flash penetration of puree. No aspiration observed during the study. Mild residuals of thin pooling to valleculae and pyriforms. Mild- moderate residuals of puree pooling from valleculae to pyriforms. Residuals observed to clear with alternating bites and sips and dry swallow after sips of thin. Pt observed to clear throat without instances of penetration or aspiration , likely due to sensation of pharyngeal residuals. ST attempted to contact MD regarding recommendations for diet placement-no answer. RN informed. - Time Total Time: 0 Total Timed Minutes: 0 ST [facility]. Impairment Category - Rationale Based On Rationale Based On: Clin Find., Obj Measures - Swallowing Current G8996: CK 40-59% Impaired Goal G8997: CK 40-59% Impaired Discharge G8998: CK 40-59% Impaired
[2016-06-11] MEDS: LORAZEPAM INJ 2 MG/1 ML VIAL IV PRN (16:20)
--- NOTE | 2016-06-11 17:34 | PDOC PROGRESS REPORT ---
Subjective Progress Note for:: 06/11/16 Subjective:: Patient was seen in the ICU today. She is looking lots better. Off pressors. She is undergoing dialysis. Discussions were done with the treating nurse Bridgett. She is on 2 L of oxygen and desaturates if that is removed. She is answering q appropriately.Denies chest pains, dyspnea, fever or chills. Physical Exam Vital Signs: Temp Pulse Resp BP Pulse Ox 98.5 F 129 H 20 155/117 H 99 06/11/16 08:00 06/11/16 16:00 06/11/16 16:00 06/11/16 11:02 06/11/16 16:00 Intake & Output 06/10/16 06/11/16 06/12/16 06:59 06:59 06:59 Intake Total 200 250 Output Total 3225 1 1999 Balance -3025 249 -1999 Weight 53.5 kg 55.7 kg General appearance: PRESENT: no acute distress Respiratory exam: PRESENT: clear to auscultation frankie, crackles. ABSENT: rhonchi Cardiovascular exam: PRESENT: +S1, +S2, systolic murmur GI/Abdominal exam: PRESENT: normal bowel sounds, soft. ABSENT: distended, firm , tenderness Extremities exam: PRESENT: +1 edema Neurological exam: PRESENT: alert, oriented to person, oriented to place, oriented to time Skin exam: ABSENT: cyanosis, mottled, rash Results Laboratory Results: 06/11/16 05:50 06/11/16 05:50 06/11/16 06/11/16 06/11/16 05:50 05:50 05:50 WBC 13.2 H RBC 3.08 L Hgb 8.9 L Hct 28.1 L MCV 91 MCH 28.9 MCHC 31.7 L RDW 19.0 H Plt Count 286 Seg Neutrophils % 81.1 H Lymphocytes % 9.4 L Monocytes % 7.4 Eosinophils % 1.4 Basophils % 0.7 Absolute Neutrophils 10.7 H Absolute Lymphocytes 1.2 Absolute Monocytes 1.0 Absolute Eosinophils 0.2 Absolute Basophils 0.1 Carbonic Acid 1.43 H HCO3/H2CO3 Ratio 18:1 ABG pH 7.37 ABG pCO2 47.6 H ABG pO2 87.5 ABG HCO3 27.1 H ABG O2 Saturation 96.4 ABG Base Excess 1.6 FiO2 30% Sodium 138.1 Potassium 3.9 Chloride 103 Carbon Dioxide 26 Anion Gap 9 BUN 16 Creatinine 2.76 H Est GFR ( Amer) 23 L Est GFR (Non-Af Amer) 19 L Glucose 68 L Calcium 8.3 L Magnesium 1.7 05/29/16 05/30/16 05/31/16 23:45 05:55 05:15 Creatine Kinase 31 CK-MB (CK-2) 1.81 1.71 Troponin I 0.069 0.094 05/31/16 05:15 Creatine Kinase CK-MB (CK-2) 1.46 Troponin I 0.079 Impressions: Chest/Abdomen CTA 05/29/16 18:00 IMPRESSION: No evidence for pulmonary embolic disease. Extensive chronic appearing changes as noted above. Small right pleural effusion is again identified which appears slightly larger than on the previous study. The previously described rounded masslike density in the right lower lobe is again identified. There is a central somewhat low density area and the possibility of a necrotic neoplasm or developing lung abscess cannot be excluded. Large pericardial effusion is again identified. Other findings as noted above Modified Barium Swallow 06/11/16 00:00 IMPRESSION: FLASH LARYNGEAL PENETRATION FROM RESIDUALS, WITHOUT ASPIRATION, SEEN WITH PUREED CONSISTENCY.PLEASE SEE SPEECH PATHOLOGIST REPORT FOR OTHER FINDINGS AND RECOMMENDATIONS. Chest X-Ray 06/11/16 06:00 IMPRESSION: NO CHANGE IN APPEARANCE OF THE CHEST Assessment & Plan - Diagnosis (1) Acute hypoxemic respiratory failure Is this a current diagnosis for this admission?: YesPlan: She has been extubated and looking well.She is currently on 2 L of oxygen through nasal cannula but desaturates once at this taken off. (2) End stage renal disease Is this a current diagnosis for this admission?: YesPlan: Patient undergoing dialysis. Patient is fluid overloaded. We will plan to remove at least 1- 2 L of fluid as tolerated. Orders were discussed with the treating nurse. (3) Lung abscess Qualifiers: Pulmonary abscess pneumonia presence: with pneumonia Laterality: right Lung location: unspecified part of lung Qualified Code(s): J85.1 - Abscess of lung with pneumonia Is this a current diagnosis for this admission?: NoPlan: Patient has recovered from septic shock. Patient on antibiotics. Monitor. (4) Lung cancer Qualifiers: Laterality: unspecified laterality Lung location: unspecified part of lung Qualified Code(s): C34.90 - Malignant neoplasm of unspecified part of unspecified bronchus or lung Is this a current diagnosis for this admission?: YesPlan: Has been seen at [facility] multiple times , but has had no definitive treatments done given the very poor prognosis and very poor serious comorbidities. (5) Septic shock Is this a current diagnosis for this admission?: YesPlan: Patient currently off vasopressin. Improving. On antibiotics. (7) Pulmonary fibrosis Is this a current diagnosis for this admission?: Yes (8) Scleroderma Is this a current diagnosis for this admission?: YesPlan: With severe comorbidities and complications of the disease. (9) Anemia Plan: Monitor. Adjust low-dose erythropoietin.
[2016-06-11] MEDS: VANCOMYCIN HCL 500 MG in DEXTROSE 5%-WATER 100 ML IV SCH (17:41)
[2016-06-12] MEDS: DEXTROSE 50%-WATER SYRINGE 25 GM/50 ML DOSE IV PRN ×2 (02:21→04:36)
[2016-06-12] MEDS: LORAZEPAM INJ 2 MG/1 ML VIAL IV PRN ×3 (02:25→19:13)
[2016-06-12] MEDS: HEPARIN SOD (PORCINE) 5,000 UNIT/ML 1 ML SYRINGE SUBCUT SCH ×3 (06:23→22:02)
[2016-06-12 06:48] LABS: ABSOLUTE BASOPHILS # (AUTO) 0.1 10^3/uL (0.0-0.2); ABSOLUTE EOSINOPHILS # (AUTO) 0.2 10^3/uL (0.0-0.6); ABSOLUTE LYMPHOCYTES (AUTO) 1.5 10^3/uL (0.5-4.7); ABSOLUTE MONOCYTES (AUTO) 0.9 10^3/uL (0.1-1.4); ABSOLUTE NEUT (AUTO) 10.2 10^3/uL (1.7-8.2); BASOPHILS % (AUTO) 0.7 % (0-2); EOSINOPHILS % (AUTO) 1.3 % (0-6); HEMOGLOBIN 8.4 g/dL (12.0-15.5); HGB HCT DIFFERENCE -1.8; LYMPHOCYTES % (AUTO) 11.6 % (13-45); MEAN CORPUSCULAR HEMOGLOBIN 28.8 pg (27.0-33.4); MEAN CORPUSCULAR HGB CONC 31.2 g/dL (32.0-36.0); MEAN CORPUSCULAR VOLUME 92 fl (80-97); RED BLOOD COUNT 2.93 10^6/uL (3.72-5.28); RED CELL DISTRIBUTION WIDTH 18.5 % (11.5-14.0); SEGMENTED NEUTROPHILS % (AUTO) 79.4 % (42-78); WHITE BLOOD COUNT 12.8 10^3/uL (4.0-10.5)
[2016-06-12 07:05] LABS: ANION GAP 6 (5-19); BLOOD UREA NITROGEN 9 mg/dL (7-20); CALCIUM 7.3 mg/dL (8.4-10.2); CARBON DIOXIDE 27 mmol/L (22-30); CHLORIDE 108 mmol/L (98-107); CREATININE RESULT 1.86 mg/dL (0.52-1.25); GLUCOSE 75 mg/dL (75-110); MAGNESIUM 1.4 mg/dL (1.6-2.3); POTASSIUM 3.1 mmol/L (3.6-5.0); SODIUM 141.4 mmol/L (137-145)
[2016-06-12 07:17] LABS: ARTERIAL BLOOD BASE EXCESS 4.7 mmol/L; ARTERIAL BLOOD O2 SATURATION 94.6 % (94-98)
[2016-06-12] MEDS: MORPHINE SULFATE 10 MG/ML INJ IV PRN ×2 (08:22→20:44)
[2016-06-12] MEDS: METOPROLOL TARTRATE PF/INJ 5 MG/5 ML SDV IV PRN (08:31)
[2016-06-12] MEDS: RAMIPRIL 1.25 MG CAPSULE PO SCH (11:44)
[2016-06-12] MEDS ORDERED: CARVEDILOL 12.5 MG TABLET PO ONE (12:00)
--- NOTE | 2016-06-12 12:13 | XCELERA REPORT ---
[address] [address] Transthoracic Echocardiogram Report Name: FELISA MILES Age: 40 yrs Gender: Female : 1975 Patient Status: Inpatient Patient Location: ICU\S\608\S\A Study Date: 06/11/2016 10:19 AM Height: 66 in Weight: 122 lb BSA: 1.6 m2 Procedure: A limited two-dimensional transthoracic echocardiogram was performed (2D). The study was technically adequate with some images being suboptimal in quality. Reason For Study: Asssess Pericardial Effusion History: Limited echo to follow up on pericardial effusion. Ordering Physician: LAURA TOVAR Performed By: Shannon Gaspar Interpretation Summary tHERE IS A SMALL PERICARDIAL EFFUSIN ,BUT SLIGHTLY MORE THAN PRIOR ECHO THIS MONTH.tHE EFFUSION BEHIND THE ra HAS INCREASED AND IS NOW MODERATE EFFUSION BEHIND RA. THERE IS SEVERE MR AND TR.THERE IS SEVERE LV DYSFUCTION. MMode/2D Measurements \T\ Calculations RVDd: 2.8 cm LVIDd: 6.0 cm FS: 13.4 % Ao root diam: 2.6 cm IVSd: 1.1 cm LVIDs: 5.2 cm EDV(Teich): 182.0 ml LVPWd: 1.1 cm ESV(Teich): 130.7 ml Ao root area: 5.3 cm2 EF(Teich): 28.2 % LA dimension: 4.1 cm Effusions tHERE IS A SMALL PERICARDIAL EFFUSIN ,BUT SLIGHTLY MORE THAN PRIOR ECHO THIS MONTH.tHE EFFUSION BEHIND THE ra HAS INCREASED AND IS NOW MODERATE EFFUSION BEHIND RA. THERE IS SEVERE MR AND TR.THERE IS SEVERE LV DYSFUCTION. : LAURA TOVAR > Laura Tovar
[2016-06-12] MEDS: IPRATROPIUM/ALBUTEROL 0.5-2.5 MG/3 ML AMPUL NEB PRN ×2 (12:51→18:42)
[2016-06-12] MEDS ORDERED: DIGOXIN INJ 0.5 MG/2 ML AMPULE IV ONE (13:33)
--- NOTE | 2016-06-12 14:01 | PDOC PROGRESS REPORT ---
Subjective Progress Note for:: 06/11/16 Subjective:: Patient's condition remains very poor, she is still in ICU, she will be downgraded to telemetry floor, she has sinus tachycardia due to multiple factors , she remains a full code despite multiple life-threatening comorbid conditions , I have discussed CODE STATUS with the family on multiple occasions but they want her to be a full code, I believe the appropriate care for this patient at this time of her disease is palliative care and probably hospice but family remains adamant on continuing curative pathway Which is virtually impossible to achieve in this patient. Physical Exam Vital Signs: Temp Pulse Resp BP Pulse Ox 98.1 F 163 H 36 H 191/132 H 97 06/12/16 08:13 06/12/16 08:13 06/12/16 09:10 06/12/16 08:13 06/12/16 04:51 Intake & Output 06/11/16 06/12/16 06/13/16 06:59 06:59 06:59 Intake Total 250 100 Output Total 1 1999 Balance 249 -1900 Weight 55.7 kg 55.7 kg General appearance: PRESENT: thin Eye exam: PRESENT: PERRLA Respiratory exam: PRESENT: crackles Cardiovascular exam: PRESENT: +S1, +S2 GI/Abdominal exam: PRESENT: soft Neurological exam: PRESENT: alert Results Laboratory Results: 06/12/16 06:15 06/12/16 06:15 06/12/16 06/12/16 06/12/16 06:15 06:15 07:00 WBC 12.8 H RBC 2.93 L Hgb 8.4 L Hct 27.0 L MCV 92 MCH 28.8 MCHC 31.2 L RDW 18.5 H Plt Count 268 Seg Neutrophils % 79.4 H Lymphocytes % 11.6 L Monocytes % 7.0 Eosinophils % 1.3 Basophils % 0.7 Absolute Neutrophils 10.2 H Absolute Lymphocytes 1.5 Absolute Monocytes 0.9 Absolute Eosinophils 0.2 Absolute Basophils 0.1 Carbonic Acid 1.35 HCO3/H2CO3 Ratio 21:1 ABG pH 7.44 ABG pCO2 44.7 ABG pO2 70.4 L ABG HCO3 29.5 H ABG O2 Saturation 94.6 ABG Base Excess 4.7 FiO2 30% Sodium 141.4 Potassium 3.1 L Chloride 108 H Carbon Dioxide 27 Anion Gap 6 BUN 9 Creatinine 1.86 H Est GFR ( Amer) 36 L Est GFR (Non-Af Amer) 30 L Glucose 75 Calcium 7.3 L Magnesium 1.4 L 05/29/16 05/30/16 05/31/16 23:45 05:55 05:15 Creatine Kinase 31 CK-MB (CK-2) 1.81 1.71 Troponin I 0.069 0.094 05/31/16 05:15 Creatine Kinase CK-MB (CK-2) 1.46 Troponin I 0.079 Impressions: Chest/Abdomen CTA 05/29/16 18:00 IMPRESSION: No evidence for pulmonary embolic disease. Extensive chronic appearing changes as noted above. Small right pleural effusion is again identified which appears slightly larger than on the previous study. The previously described rounded masslike density in the right lower lobe is again identified. There is a central somewhat low density area and the possibility of a necrotic neoplasm or developing lung abscess cannot be excluded. Large pericardial effusion is again identified. Other findings as noted above Modified Barium Swallow 06/11/16 00:00 IMPRESSION: FLASH LARYNGEAL PENETRATION FROM RESIDUALS, WITHOUT ASPIRATION, SEEN WITH PUREED CONSISTENCY.PLEASE SEE SPEECH PATHOLOGIST REPORT FOR OTHER FINDINGS AND RECOMMENDATIONS. Chest X-Ray 06/11/16 06:00 IMPRESSION: NO CHANGE IN APPEARANCE OF THE CHEST Assessment & Plan - Diagnosis (1) Acute hypoxemic respiratory failure Is this a current diagnosis for this admission?: Yes (2) Lung cancer Qualifiers: Laterality: unspecified laterality Lung location: unspecified part of lung Qualified Code(s): C34.90 - Malignant neoplasm of unspecified part of unspecified bronchus or lung Is this a current diagnosis for this admission?: Yes (3) Lung abscess Qualifiers: Pulmonary abscess pneumonia presence: with pneumonia Laterality: right Lung location: unspecified part of lung Qualified Code(s): J85.1 - Abscess of lung with pneumonia Is this a current diagnosis for this admission?: No (4) End stage renal disease Is this a current diagnosis for this admission?: Yes (5) Cardiac arrest Is this a current diagnosis for this admission?: Yes (6) Cardiogenic shock Is this a current diagnosis for this admission?: Yes (7) Septic shock Is this a current diagnosis for this admission?: Yes - Plan Summary Plan Summary: She will be transferred to medical floor/telemetry floor
[2016-06-12] MEDS ORDERED: LISINOPRIL 5 MG TABLET PO ONE (14:30)
--- NOTE | 2016-06-12 16:13 | PDOC PROGRESS REPORT ---
Subjective Progress Note for:: 06/12/16 Subjective:: Patient's condition remains very poor, she is still in ICU, she will be downgraded to telemetry floor, she has sinus tachycardia due to multiple factors , she remains a full code despite multiple life-threatening comorbid conditions , I have discussed CODE STATUS with the family on multiple occasions but they want her to be a full code, I believe the appropriate care for this patient at this time of her disease is palliative care and probably hospice but family remains adamant on continuing curative pathway Which is virtually impossible to achieve in this patient. Physical Exam Vital Signs: Temp Pulse Resp BP Pulse Ox 98.3 F 139 H 32 H 165/115 H 96 06/12/16 11:39 06/12/16 11:39 06/12/16 11:39 06/12/16 11:39 06/12/16 11:39 Intake & Output 06/11/16 06/12/16 06/13/16 06:59 06:59 06:59 Intake Total 250 100 Output Total 1 1999 Balance 249 -1900 Weight 55.7 kg 55.7 kg General appearance: PRESENT: no acute distress Eye exam: PRESENT: PERRLA Respiratory exam: PRESENT: crackles Cardiovascular exam: PRESENT: +S1, +S2 GI/Abdominal exam: PRESENT: soft Neurological exam: PRESENT: alert Results Laboratory Results: 06/12/16 06:15 06/12/16 06:15 06/12/16 06/12/16 06/12/16 06:15 06:15 07:00 WBC 12.8 H RBC 2.93 L Hgb 8.4 L Hct 27.0 L MCV 92 MCH 28.8 MCHC 31.2 L RDW 18.5 H Plt Count 268 Seg Neutrophils % 79.4 H Lymphocytes % 11.6 L Monocytes % 7.0 Eosinophils % 1.3 Basophils % 0.7 Absolute Neutrophils 10.2 H Absolute Lymphocytes 1.5 Absolute Monocytes 0.9 Absolute Eosinophils 0.2 Absolute Basophils 0.1 Carbonic Acid 1.35 HCO3/H2CO3 Ratio 21:1 ABG pH 7.44 ABG pCO2 44.7 ABG pO2 70.4 L ABG HCO3 29.5 H ABG O2 Saturation 94.6 ABG Base Excess 4.7 FiO2 30% Sodium 141.4 Potassium 3.1 L Chloride 108 H Carbon Dioxide 27 Anion Gap 6 BUN 9 Creatinine 1.86 H Est GFR ( Amer) 36 L Est GFR (Non-Af Amer) 30 L Glucose 75 Calcium 7.3 L Magnesium 1.4 L 05/29/16 05/30/16 05/31/16 23:45 05:55 05:15 Creatine Kinase 31 CK-MB (CK-2) 1.81 1.71 Troponin I 0.069 0.094 05/31/16 05:15 Creatine Kinase CK-MB (CK-2) 1.46 Troponin I 0.079 Impressions: Chest/Abdomen CTA 05/29/16 18:00 IMPRESSION: No evidence for pulmonary embolic disease. Extensive chronic appearing changes as noted above. Small right pleural effusion is again identified which appears slightly larger than on the previous study. The previously described rounded masslike density in the right lower lobe is again identified. There is a central somewhat low density area and the possibility of a necrotic neoplasm or developing lung abscess cannot be excluded. Large pericardial effusion is again identified. Other findings as noted above Modified Barium Swallow 06/11/16 00:00 IMPRESSION: FLASH LARYNGEAL PENETRATION FROM RESIDUALS, WITHOUT ASPIRATION, SEEN WITH PUREED CONSISTENCY.PLEASE SEE SPEECH PATHOLOGIST REPORT FOR OTHER FINDINGS AND RECOMMENDATIONS. Chest X-Ray 06/11/16 06:00 IMPRESSION: NO CHANGE IN APPEARANCE OF THE CHEST Assessment & Plan - Diagnosis (1) Acute hypoxemic respiratory failure Is this a current diagnosis for this admission?: Yes (2) Lung cancer Qualifiers: Laterality: unspecified laterality Lung location: unspecified part of lung Qualified Code(s): C34.90 - Malignant neoplasm of unspecified part of unspecified bronchus or lung Is this a current diagnosis for this admission?: Yes (3) Lung abscess Qualifiers: Pulmonary abscess pneumonia presence: with pneumonia Laterality: right Lung location: unspecified part of lung Qualified Code(s): J85.1 - Abscess of lung with pneumonia Is this a current diagnosis for this admission?: No (4) End stage renal disease Is this a current diagnosis for this admission?: Yes (5) Cardiac arrest Is this a current diagnosis for this admission?: Yes (6) Cardiogenic shock Is this a current diagnosis for this admission?: Yes (7) Septic shock Is this a current diagnosis for this admission?: Yes - Plan Summary Plan Summary: Patient's condition is still poor, will continue present treatment
--- NOTE | 2016-06-12 16:46 | PDOC PROGRESS REPORT ---
Subjective Progress Note for:: 06/11/16 Subjective:: 48 hours status post extubation patient is obviously weakening requiring NIPPV continuously Physical Exam Vital Signs: Temp Pulse Resp BP Pulse Ox 97.5 F 114 H 12 117/93 H 96 06/11/16 05:47 06/10/16 22:00 06/11/16 06:00 06/11/16 05:03 06/11/16 06:00 Intake & Output 06/10/16 06/11/16 06/12/16 06:59 06:59 06:59 Intake Total 200 250 Output Total 3225 1 Balance -3025 249 Weight 53.5 kg 55.7 kg General appearance: PRESENT: disheveled, mild distress, other - Cachectic Head exam: PRESENT: atraumatic, normocephalic Eye exam: PRESENT: conjunctiva pale, EOMI Mouth exam: PRESENT: dry mucosa, neck supple Respiratory exam: PRESENT: decreased breath sounds, prolonged expiratory phas, rales, rhonchi, symmetrical, wheezes Cardiovascular exam: PRESENT: irregular rhythm Pulses: PRESENT: normal radial pulses GI/Abdominal exam: PRESENT: normal bowel sounds, soft. ABSENT: distended, guarding, mass, organolmegaly, rebound, tenderness Rectal exam: PRESENT: deferred Gentrourinary exam: PRESENT: indwelling catheter Musculoskeletal exam: PRESENT: normal inspection Neurological exam: PRESENT: awake Psychiatric exam: PRESENT: flat affect Skin exam: PRESENT: warm Results Laboratory Results: 06/11/16 05:50 06/11/16 05:50 06/10/16 06/11/16 06/11/16 12:15 05:50 05:50 WBC RBC Hgb Hct MCV MCH MCHC RDW Plt Count Seg Neutrophils % Lymphocytes % Monocytes % Eosinophils % Basophils % Absolute Neutrophils Absolute Lymphocytes Absolute Monocytes Absolute Eosinophils Absolute Basophils Carbonic Acid 1.36 H 1.43 H HCO3/H2CO3 Ratio 19:1 18:1 ABG pH 7.38 7.37 ABG pCO2 45.2 H 47.6 H ABG pO2 198.1 H 87.5 ABG HCO3 26.4 H 27.1 H ABG O2 Saturation 99.3 H 96.4 ABG Base Excess 1.1 1.6 FiO2 50% 30% Sodium 138.1 Potassium 3.9 Chloride 103 Carbon Dioxide 26 Anion Gap 9 BUN 16 Creatinine 2.76 H Est GFR ( Amer) 23 L Est GFR (Non-Af Amer) 19 L Glucose 68 L Calcium 8.3 L Magnesium 1.7 06/11/16 05:50 WBC 13.2 H RBC 3.08 L Hgb 8.9 L Hct 28.1 L MCV 91 MCH 28.9 MCHC 31.7 L RDW 19.0 H Plt Count 286 Seg Neutrophils % 81.1 H Lymphocytes % 9.4 L Monocytes % 7.4 Eosinophils % 1.4 Basophils % 0.7 Absolute Neutrophils 10.7 H Absolute Lymphocytes 1.2 Absolute Monocytes 1.0 Absolute Eosinophils 0.2 Absolute Basophils 0.1 Carbonic Acid HCO3/H2CO3 Ratio ABG pH ABG pCO2 ABG pO2 ABG HCO3 ABG O2 Saturation ABG Base Excess FiO2 Sodium Potassium Chloride Carbon Dioxide Anion Gap BUN Creatinine Est GFR ( Amer) Est GFR (Non-Af Amer) Glucose Calcium Magnesium 05/29/16 05/30/16 05/31/16 23:45 05:55 05:15 Creatine Kinase 31 CK-MB (CK-2) 1.81 1.71 Troponin I 0.069 0.094 05/31/16 05:15 Creatine Kinase CK-MB (CK-2) 1.46 Troponin I 0.079 Impressions: Chest/Abdomen CTA 05/29/16 18:00 IMPRESSION: No evidence for pulmonary embolic disease. Extensive chronic appearing changes as noted above. Small right pleural effusion is again identified which appears slightly larger than on the previous study. The previously described rounded masslike density in the right lower lobe is again identified. There is a central somewhat low density area and the possibility of a necrotic neoplasm or developing lung abscess cannot be excluded. Large pericardial effusion is again identified. Other findings as noted above Assessment & Plan - Diagnosis (1) Acute hypoxemic respiratory failure Is this a current diagnosis for this admission?: Yes (2) End stage renal disease Is this a current diagnosis for this admission?: Yes (3) Lung abscess Qualifiers: Pulmonary abscess pneumonia presence: with pneumonia Laterality: right Lung location: unspecified part of lung Qualified Code(s): J85.1 - Abscess of lung with pneumonia Is this a current diagnosis for this admission?: No (4) Lung cancer Qualifiers: Laterality: unspecified laterality Lung location: unspecified part of lung Qualified Code(s): C34.90 - Malignant neoplasm of unspecified part of unspecified bronchus or lung Is this a current diagnosis for this admission?: Yes (5) Scleroderma Is this a current diagnosis for this admission?: Yes - Time Critical Time spent with patient: 35 or more minutes - 50 min
--- NOTE | 2016-06-12 16:50 | PDOC PROGRESS REPORT ---
Subjective Progress Note for:: 06/12/16 Subjective:: Increasing lethargy Physical Exam Vital Signs: Temp Pulse Resp BP Pulse Ox 98.3 F 139 H 32 H 165/115 H 96 06/12/16 11:39 06/12/16 11:39 06/12/16 11:39 06/12/16 11:39 06/12/16 11:39 Intake & Output 06/11/16 06/12/16 06/13/16 06:59 06:59 06:59 Intake Total 250 100 Output Total 1 1999 Balance 249 -1900 Weight 55.7 kg 55.7 kg General appearance: PRESENT: disheveled, other - Cachectic Head exam: PRESENT: atraumatic, normocephalic Eye exam: PRESENT: conjunctiva pale, EOMI Mouth exam: PRESENT: dry mucosa Neck exam: ABSENT: carotid bruit, JVD, lymphadenopathy, thyromegaly Respiratory exam: PRESENT: crackles, decreased breath sounds, rales, rhonchi, tachypnea, wheezes, other Cardiovascular exam: PRESENT: irregular rhythm Pulses: PRESENT: normal radial pulses GI/Abdominal exam: PRESENT: normal bowel sounds, soft. ABSENT: distended, guarding, mass, organolmegaly, rebound, tenderness Rectal exam: PRESENT: deferred Gentrourinary exam: PRESENT: indwelling catheter Musculoskeletal exam: PRESENT: normal inspection Neurological exam: PRESENT: awake Skin exam: PRESENT: dry, warm Results Laboratory Results: 06/12/16 06:15 06/12/16 06:15 06/12/16 06/12/16 06/12/16 06:15 06:15 07:00 WBC 12.8 H RBC 2.93 L Hgb 8.4 L Hct 27.0 L MCV 92 MCH 28.8 MCHC 31.2 L RDW 18.5 H Plt Count 268 Seg Neutrophils % 79.4 H Lymphocytes % 11.6 L Monocytes % 7.0 Eosinophils % 1.3 Basophils % 0.7 Absolute Neutrophils 10.2 H Absolute Lymphocytes 1.5 Absolute Monocytes 0.9 Absolute Eosinophils 0.2 Absolute Basophils 0.1 Carbonic Acid 1.35 HCO3/H2CO3 Ratio 21:1 ABG pH 7.44 ABG pCO2 44.7 ABG pO2 70.4 L ABG HCO3 29.5 H ABG O2 Saturation 94.6 ABG Base Excess 4.7 FiO2 30% Sodium 141.4 Potassium 3.1 L Chloride 108 H Carbon Dioxide 27 Anion Gap 6 BUN 9 Creatinine 1.86 H Est GFR ( Amer) 36 L Est GFR (Non-Af Amer) 30 L Glucose 75 Calcium 7.3 L Magnesium 1.4 L 05/29/16 05/30/16 05/31/16 23:45 05:55 05:15 Creatine Kinase 31 CK-MB (CK-2) 1.81 1.71 Troponin I 0.069 0.094 05/31/16 05:15 Creatine Kinase CK-MB (CK-2) 1.46 Troponin I 0.079 Impressions: Chest/Abdomen CTA 05/29/16 18:00 IMPRESSION: No evidence for pulmonary embolic disease. Extensive chronic appearing changes as noted above. Small right pleural effusion is again identified which appears slightly larger than on the previous study. The previously described rounded masslike density in the right lower lobe is again identified. There is a central somewhat low density area and the possibility of a necrotic neoplasm or developing lung abscess cannot be excluded. Large pericardial effusion is again identified. Other findings as noted above Modified Barium Swallow 06/11/16 00:00 IMPRESSION: FLASH LARYNGEAL PENETRATION FROM RESIDUALS, WITHOUT ASPIRATION, SEEN WITH PUREED CONSISTENCY.PLEASE SEE SPEECH PATHOLOGIST REPORT FOR OTHER FINDINGS AND RECOMMENDATIONS. Chest X-Ray 06/11/16 06:00 IMPRESSION: NO CHANGE IN APPEARANCE OF THE CHEST Assessment & Plan - Diagnosis (1) Acute hypoxemic respiratory failure Is this a current diagnosis for this admission?: YesPlan: NIPPV (2) End stage renal disease Is this a current diagnosis for this admission?: YesPlan: Improving creatinine and BUN (3) Lung abscess Qualifiers: Pulmonary abscess pneumonia presence: with pneumonia Laterality: right Lung location: unspecified part of lung Qualified Code(s): J85.1 - Abscess of lung with pneumonia Is this a current diagnosis for this admission?: No (4) Lung cancer Qualifiers: Laterality: unspecified laterality Lung location: unspecified part of lung Qualified Code(s): C34.90 - Malignant neoplasm of unspecified part of unspecified bronchus or lung Is this a current diagnosis for this admission?: Yes (5) Scleroderma Is this a current diagnosis for this admission?: Yes
[2016-06-12] MEDS: CARVEDILOL 12.5 MG TABLET PO SCH (22:02)
[2016-06-12] MEDS: LISINOPRIL 5 MG TABLET PO SCH (22:02)
[2016-06-13] MEDS: MORPHINE SULFATE 10 MG/ML INJ IV PRN ×2 (01:29→05:42)
--- NOTE | 2016-06-13 01:33 | PROGRESS NOTE E ---
Progress Note NAME: FELISA MILES : 1975 AGE: 40Y DATE: 06/12/2016 ROOM: 405 SUBJECTIVE: Note the patient was seen at 1:20 p.m. on 06/12/2016. Note that the patient is on the floor. She is extubated, still has some mild dyspnea. She does have orthopnea and she does have leg edema. She denies any chest pain or discomfort. There is no PND. OBJECTIVE: GENERAL: On examination the patient appears to be chronically ill and very ill-nourished and malnourished. VITAL SIGNS: She is afebrile with a temperature of 98.3 degrees Fahrenheit. Her pulse is 139 beats per minute, sinus tachycardia. Blood pressure 165/115, respirations are 32 per minute, O2 saturations are 96% on 3 L. HEENT: Head is atraumatic, normocephalic. Eyes: Pupils are equal, round, regular and reactive to light and accommodation. Extraocular movements are normal. There is no conjunctival pallor. There is no scleral icterus. ENT is negative. NECK: Supple. There is JVD present. Trachea is central. There is no lymphadenopathy. There is no thyromegaly. Carotids are equal. There is no bruit. LUNGS: There are absent breath sounds at the left base with rather dry leathery rales of pulmonary fibrosis. HEART: S1, S2 is heard. There is an S3 gallop present. There is an S4 gallop present. This represents a summation gallop. There is a systolic murmur of mitral regurgitation and tricuspid regurgitation present. There is no rub. ABDOMEN: Soft, nontender. There is no hepatosplenomegaly. Bowel sounds are well heard. EXTREMITIES: Pedal pulses are diminished. Femorals are diminished. There are no femoral bruits. There is 1- pedal edema bilaterally. There is no clubbing or cyanosis. CENTRAL NERVOUS SYSTEM: The patient is conscious, slightly drowsy but oriented x3 with no focal deficits. PSYCHIATRIC: The patient does not appear to be agitated or depressed. LABORATORY DATA: The patient's white count is 12,800; hemoglobin is 8.4; hematocrit is 27; platelet count is 268,000. The patient's sodium is 141.4, potassium 3.1, chloride 108, CO2 is 27. The patient's BUN is 9, creatinine is 1.86, GFR is reduced to 36 mL which is improved from before, now it is stage 3. The patient's glucose is 218. The patient's calcium is low at 7.3 and magnesium is low at 1.4. DIAGNOSTIC STUDIES: The patient had an echocardiogram yesterday which showed severe left ventricular dysfunction as before and a severe MR and TR. This echo was a limited echo done to see if there is progression of pericardial effusion. Although there is mild pericardial effusion this is slightly more than the effusion seen in the prior study end of last month. But, the pericardial effusion behind the right atrium has moderately increased from mild compared to prior echo. There is no evidence of tamponade. IMPRESSION: 1. END-STAGE RENAL DISEASE ON DIALYSIS. GLOMERULAR FILTRATION RATE IS IMPROVED BUT STILL THE PATIENT MAY NEED DIALYSIS TO REMOVE FLUID. 2. SUMMATION GALLOP CONSISTENT WITH S3, S4 GALLOP SUGGESTIVE OF LEFT HEART FAILURE. 3. SEVERE TRICUSPID REGURGITATION. 4. SEVERE MITRAL REGURGITATION. 5. HISTORY OF LUNG CANCER WITH MALIGNANCY IN THE HILUM OF UNSPECIFIED LATERALITY. 6. SCLERODERMA. 7. CHRONIC RESPIRATORY FAILURE. 8. CARDIOMYOPATHY WITH SEVERELY DEPRESSED LEFT VENTRICULAR EJECTION FRACTION. 9. PULMONARY FIBROSIS. 10. STATUS POST SEPTIC SHOCK, NOW EXTUBATED. THE PATIENT IS HYPERTENSIVE WITH UNCONTROLLED BLOOD PRESSURE. 11. HYPOKALEMIA. 12. HYPOMAGNESEMIA. RECOMMENDATION: Replace the patient's potassium and magnesium. Also, Dr. Spears the attending physician on the case has increased the patient's Coreg to 12.5 mg p.o. b.i.d. This the nurse says that it is very difficult for the patient to swallow even a small pill. Also, and since Altace is a capsule she is not able to swallow this. I have given her 0.125 mg of digoxin IV for the patient's acute systolic heart failure with the summation gallop and also to bring the heart rate down. I instructed the nurse to crush the Coreg pills and give it in applesauce and also we will start the patient on lisinopril 5 mg p.o. now and q.12 hours and we will increase it as tolerated. Note, that the patient had a swallow study yesterday which showed that her swallowing is okay, but the patient still has difficulty swallowing large pills. Discussed with the patient and the patient's , discussed with the nurse taking care of the patient, and discussed with Dr. Spears that indication on record. TIME SPENT: Note 40 minutes spent on the patient with more than 50% of time spent on direct patient care, also reviewing the patient's medication, stopping the patient's Altace and starting the patient on lisinopril and also giving the patient digoxin. Dr. Hurd will follow the patient in the a.m. Will continue. DICTATING PHYSICIAN: LAURA TOVAR M.D. [id number] PHY#: [id number] ID: [id number] JOB#: [id number] ACCT: [id number] cc: >
[2016-06-13] MEDS: HEPARIN SOD (PORCINE) 5,000 UNIT/ML 1 ML SYRINGE SUBCUT SCH ×3 (05:43→23:39)
[2016-06-13 06:53] LABS: ANION GAP 15 (5-19); BLOOD UREA NITROGEN 23 mg/dL (7-20); CALCIUM 8.8 mg/dL (8.4-10.2); CARBON DIOXIDE 25 mmol/L (22-30); CHLORIDE 102 mmol/L (98-107); CREATININE RESULT 3.25 mg/dL (0.52-1.25); SODIUM 142.1 mmol/L (137-145)
[2016-06-13 07:08] LABS: POTASSIUM 4.9 mmol/L (3.6-5.0)
[2016-06-13 07:10] LABS: GLUCOSE 36 mg/dL (75-110)
[2016-06-13] MEDS: DEXTROSE 50%-WATER SYRINGE 25 GM/50 ML DOSE IV PRN ×2 (07:20→17:17)
[2016-06-13 08:04] LABS: ARTERIAL BLOOD BASE EXCESS -0.6 mmol/L; ARTERIAL BLOOD O2 SATURATION 86.6 % (94-98)
[2016-06-13] MEDS: IPRATROPIUM/ALBUTEROL 0.5-2.5 MG/3 ML AMPUL NEB PRN ×2 (09:18→14:57)
[2016-06-13] MEDS: LISINOPRIL 5 MG TABLET PO SCH ×2 (11:44→23:39)
[2016-06-13] MEDS: CARVEDILOL 12.5 MG TABLET PO SCH ×2 (11:44→23:39)
--- NOTE | 2016-06-13 12:07 | PDOC PROGRESS REPORT ---
Subjective Progress Note for:: 06/13/16 Subjective:: Patient has made some progress. Patient is maintaining good respiration. Patient noted to be intermittently tachycardic. Patient did have a follow-up echocardiogram which showed severely depressed LVEF , best estimate of EF is about 15%. In addition right ventricular ejection fraction also seems severely depressed. Moderate to severe mitral regurgitation noted. Medications reviewed. Physical Exam Vital Signs: Temp Pulse Resp BP Pulse Ox 98.0 F 115 H 25 H 139/92 H 95 06/13/16 07:55 06/13/16 09:23 06/13/16 09:23 06/13/16 07:55 06/13/16 09:23 Intake & Output 06/12/16 06/13/16 06/14/16 06:59 06:59 06:59 Intake Total 100 120 Output Total 2000 Balance -1900 120 Weight 55.7 kg 55.7 kg Exam: GENERAL: Emaciated and cachectic in no acute distress. Patient is alert but seems oriented to place time or person. HEAD: Atraumatic, normocephalic. EYES: Pupils equal round and reactive to light, extraocular movements intact, sclera anicteric, conjunctiva are normal. ENT: TMs normal, nares patent, oropharynx clear without exudates. Moist mucous membranes. No oral ulcerations or bleeding gums noted NECK: supple without lymphadenopathy or JVD. Trachea is central. No cervical or axillary lymphadenopathy noted. Carotids are 2+ LUNGS: Breath sounds bibasilar fine crackles at bases. No significant dullness noted. CHEST: Palpation of chest wall shows no significant chest wall tenderness. 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 ABDOMEN: Soft, no significant tenderness appreciated, normoactive bowel sounds. No guarding, no rebound. No rigidity noted . No masses appreciated. EXTREMITIES: Pedal pulses are 1-2+, no calf tenderness noted, Trace + pedal edema noted. No clubbing or cyanosis. NEUROLOGICAL: Patient is alert but felt to be very weak and noted to have generalized weakness. PSYCH: Patient seems to have a depressed mood. SKIN: No significant ecchymosis, rash, ulcerations or signs of pruritus noted. MUSCULOSKELETAL EXAM: No significant joint swelling noted. Results Laboratory Results: 06/12/16 06:15 06/13/16 05:45 06/13/16 06/13/16 05:45 06:40 Carbonic Acid 1.27 HCO3/H2CO3 Ratio 19:1 ABG pH 7.38 ABG pCO2 42.1 ABG pO2 52.6 L ABG HCO3 24.5 ABG O2 Saturation 86.6 L ABG Base Excess -0.6 FiO2 2L Sodium 142.1 Potassium 4.9 D Chloride 102 Carbon Dioxide 25 Anion Gap 15 BUN 23 H Creatinine 3.25 H Est GFR ( Amer) 19 L Est GFR (Non-Af Amer) 16 L Glucose 36 L* Calcium 8.8 05/29/16 05/30/16 05/31/16 23:45 05:55 05:15 Creatine Kinase 31 CK-MB (CK-2) 1.81 1.71 Troponin I 0.069 0.094 05/31/16 05:15 Creatine Kinase CK-MB (CK-2) 1.46 Troponin I 0.079 Impressions: Chest/Abdomen CTA 05/29/16 18:00 IMPRESSION: No evidence for pulmonary embolic disease. Extensive chronic appearing changes as noted above. Small right pleural effusion is again identified which appears slightly larger than on the previous study. The previously described rounded masslike density in the right lower lobe is again identified. There is a central somewhat low density area and the possibility of a necrotic neoplasm or developing lung abscess cannot be excluded. Large pericardial effusion is again identified. Other findings as noted above Modified Barium Swallow 06/11/16 00:00 IMPRESSION: FLASH LARYNGEAL PENETRATION FROM RESIDUALS, WITHOUT ASPIRATION, SEEN WITH PUREED CONSISTENCY.PLEASE SEE SPEECH PATHOLOGIST REPORT FOR OTHER FINDINGS AND RECOMMENDATIONS. Chest X-Ray 06/11/16 06:00 IMPRESSION: NO CHANGE IN APPEARANCE OF THE CHEST Assessment & Plan - Diagnosis (1) Acute hypoxemic respiratory failure Is this a current diagnosis for this admission?: Yes (2) End stage renal disease Is this a current diagnosis for this admission?: Yes (3) Lung cancer Qualifiers: Laterality: unspecified laterality Lung location: unspecified part of lung Qualified Code(s): C34.90 - Malignant neoplasm of unspecified part of unspecified bronchus or lung Is this a current diagnosis for this admission?: Yes (4) Septic shock Is this a current diagnosis for this admission?: Yes (5) Pulmonary fibrosis Is this a current diagnosis for this admission?: Yes (6) Scleroderma Is this a current diagnosis for this admission?: Yes (7) Cardiomyopathy Qualifiers: Cardiomyopathy type: unspecified Qualified Code(s): I42.9 - Cardiomyopathy, unspecified Is this a current diagnosis for this admission?: Yes - Notes Notes: Patient remains severely debilitated and weak. Acute respiratory failure: Improved. Respiration seems easy. Patient to report any increased shortness of breath. Patient does need supplementary oxygen. Cardiomyopathy: Patient has severe LV systolic dysfunction. Her medical management is being optimized. Do not feel patient will be a candidate for any heart-lung transplant because of scleroderma and history of cancer. Lung cancer: Patient was felt to weak and debilitated to undergo chemotherapy. Sepsis: This seems to have improved. Pulmonary fibrosis: This is a progressive problem. Pulmonary following. End-stage renal disease: Patient on dialysis. Patient being followed by registered medical transcriptionist. Scleroderma: This is a progressive disease. Overall prognosis is on the poor side. - Time Time with patient: Greater than 35 minutes - CODE STATUS was discussed, patient remains full code. Surrogate decision-maker patient's . Multiple medical problems were addressed.More than 50% of the time spent coordinating care, discussing management plans with involved caregivers. Management plans discussed with involved personnels. Medical decision making was of moderate complexity.
[2016-06-13] MEDS ORDERED: LIDOCAINE 0.5% INJ-PF (5 MG/ML) 50 ML SDV ONE (16:11)
[2016-06-13] MEDS: LORAZEPAM INJ 2 MG/1 ML VIAL IV PRN (16:27)
--- NOTE | 2016-06-13 16:48 | CONSULTATION REPORT E ---
Consultation Report NAME: FELISA MILES : 1975 AGE: 40Y DATE: 405 A TO: GREG CLINTON M.D. FROM: MARTHA BLAKE M.D. Requesting Physician REASON FOR CONSULTATION: Continued leak from a previous right femoral vein catheter placement site. SUMMARY: This is a 40-year-old, unfortunate female with lung CA, scleroderma, and post ICU care with multiple lines. She was noted to have leaking previously, right femoral vein site. On examination, there is edema along the right femoral area with practically watery leak from the puncture site. It does not look infected at this time. However, I do not think closing this opening will prevent any major problems because there is more risk for infection if this is closed at this time. This was explained to the nurse, and I just instructed the nurse to put thick dressing, gauze, at the site, and change it as needed. If anything changes, like blood coming out or oozing, then that may be the appropriate time to close the site, but at this point I would like to hold off closing it in view of the potential for infection. DICTATING PHYSICIAN: GREG CLINTON M.D. [id number] PHY#: [id number] ID: [id number] JOB#: [id number] ACCT: [id number] cc:GREG CLINTON M.D. >
[2016-06-13 17:19] LABS: ANION GAP 14 (5-19); BLOOD UREA NITROGEN 29 mg/dL (7-20); CALCIUM 8.4 mg/dL (8.4-10.2); CARBON DIOXIDE 25 mmol/L (22-30); CHLORIDE 102 mmol/L (98-107); CREATININE RESULT 3.62 mg/dL (0.52-1.25); GLUCOSE 60 mg/dL (75-110); POTASSIUM 4.9 mmol/L (3.6-5.0); SODIUM 140.6 mmol/L (137-145)
--- NOTE | 2016-06-13 17:31 | PDOC PROGRESS REPORT ---
Subjective Progress Note for:: 06/13/16 Subjective:: She was seen by the bedside, she had episode of severe hypoglycemia she was given 50% dextrose IV. She is not eating that much, she be given appetite stimulant, Megace to increase her appetite. The plan of care was discussed with his spouse and family Physical Exam Vital Signs: Temp Pulse Resp BP Pulse Ox 97.3 F 118 H 25 H 129/91 H 98 06/13/16 10:45 06/13/16 15:02 06/13/16 15:02 06/13/16 10:45 06/13/16 15:02 Intake & Output 06/12/16 06/13/16 06/14/16 06:59 06:59 06:59 Intake Total 100 120 Output Total 2000 Balance -1900 120 Weight 55.7 kg 55.7 kg General appearance: PRESENT: no acute distress Eye exam: PRESENT: PERRLA Respiratory exam: PRESENT: clear to auscultation frankie Cardiovascular exam: PRESENT: +S1, +S2 GI/Abdominal exam: PRESENT: soft Neurological exam: PRESENT: alert Results Laboratory Results: 06/12/16 06:15 06/13/16 16:50 06/13/16 06/13/16 06/13/16 05:45 06:40 16:50 Carbonic Acid 1.27 HCO3/H2CO3 Ratio 19:1 ABG pH 7.38 ABG pCO2 42.1 ABG pO2 52.6 L ABG HCO3 24.5 ABG O2 Saturation 86.6 L ABG Base Excess -0.6 FiO2 2L Sodium 142.1 140.6 Potassium 4.9 D 4.9 Chloride 102 102 Carbon Dioxide 25 25 Anion Gap 15 14 BUN 23 H 29 H Creatinine 3.25 H 3.62 H Est GFR ( Amer) 19 L 17 L Est GFR (Non-Af Amer) 16 L 14 L Glucose 36 L* 60 L Calcium 8.8 8.4 05/29/16 05/30/16 05/31/16 23:45 05:55 05:15 Creatine Kinase 31 CK-MB (CK-2) 1.81 1.71 Troponin I 0.069 0.094 05/31/16 05:15 Creatine Kinase CK-MB (CK-2) 1.46 Troponin I 0.079 Impressions: Chest/Abdomen CTA 05/29/16 18:00 IMPRESSION: No evidence for pulmonary embolic disease. Extensive chronic appearing changes as noted above. Small right pleural effusion is again identified which appears slightly larger than on the previous study. The previously described rounded masslike density in the right lower lobe is again identified. There is a central somewhat low density area and the possibility of a necrotic neoplasm or developing lung abscess cannot be excluded. Large pericardial effusion is again identified. Other findings as noted above Modified Barium Swallow 06/11/16 00:00 IMPRESSION: FLASH LARYNGEAL PENETRATION FROM RESIDUALS, WITHOUT ASPIRATION, SEEN WITH PUREED CONSISTENCY.PLEASE SEE SPEECH PATHOLOGIST REPORT FOR OTHER FINDINGS AND RECOMMENDATIONS. Chest X-Ray 06/11/16 06:00 IMPRESSION: NO CHANGE IN APPEARANCE OF THE CHEST Assessment & Plan - Diagnosis (1) Acute hypoxemic respiratory failure Is this a current diagnosis for this admission?: Yes (2) Lung cancer Qualifiers: Laterality: unspecified laterality Lung location: unspecified part of lung Qualified Code(s): C34.90 - Malignant neoplasm of unspecified part of unspecified bronchus or lung Is this a current diagnosis for this admission?: Yes (3) Lung abscess Qualifiers: Pulmonary abscess pneumonia presence: with pneumonia Laterality: right Lung location: unspecified part of lung Qualified Code(s): J85.1 - Abscess of lung with pneumonia Is this a current diagnosis for this admission?: No (4) End stage renal disease Is this a current diagnosis for this admission?: Yes (5) Cardiac arrest Is this a current diagnosis for this admission?: Yes (6) Cardiogenic shock Is this a current diagnosis for this admission?: Yes (7) Septic shock Is this a current diagnosis for this admission?: Yes (8) Hypoglycemia Is this a current diagnosis for this admission?: Yes (9) Anorexia Is this a current diagnosis for this admission?: Yes - Plan Summary Plan Summary: She is given stimulant with Megace
[2016-06-14] MEDS: HEPARIN SOD (PORCINE) 5,000 UNIT/ML 1 ML SYRINGE SUBCUT SCH ×3 (06:03→22:04)
[2016-06-14 07:06] LABS: BLOOD UREA NITROGEN 32 mg/dL (7-20); CALCIUM 8.2 mg/dL (8.4-10.2); CARBON DIOXIDE 26 mmol/L (22-30); CHLORIDE 103 mmol/L (98-107); CREATININE RESULT 4.35 mg/dL (0.52-1.25); GLUCOSE 66 mg/dL (75-110); POTASSIUM 4.7 mmol/L (3.6-5.0)
[2016-06-14 07:10] LABS: ANION GAP 12 (5-19); SODIUM 141.4 mmol/L (137-145)
[2016-06-14] MEDS: DEXTROSE 50%-WATER SYRINGE 25 GM/50 ML DOSE IV PRN ×3 (07:52→14:15)
[2016-06-14] MEDS ORDERED: HEPARIN SOD (PORCINE) 1,000 UNIT/ML 10 ML VIAL IV PRN ×2 (10:21→13:46)
[2016-06-14] MEDS: IPRATROPIUM/ALBUTEROL 0.5-2.5 MG/3 ML AMPUL NEB PRN (10:56)
[2016-06-14] MEDS ORDERED: EPOETIN ALFA 10,000 UNIT in SYRINGE, DISPOSABLE, 1 EACH IV ONE (11:30)
--- NOTE | 2016-06-14 13:31 | PDOC PROGRESS REPORT ---
Subjective Progress Note for:: 06/14/16 Subjective:: Patient has been transferred to the floor. She is undergoing dialysis. Discussions were done with the treating nurse. She looks rather weak and states she that she just does not feel very good. She denies any history of headaches or seizures. Very poor appetite and poor intake therefore.Denies chest pains, dyspnea, fever or chills. Physical Exam Vital Signs: Temp Pulse Resp BP Pulse Ox 97.4 F 105 H 26 H 144/102 H 100 06/14/16 04:00 06/14/16 10:50 06/14/16 10:50 06/14/16 04:00 06/14/16 10:50 Intake & Output 06/13/16 06/14/16 06/15/16 06:59 06:59 06:59 Intake Total 120 Balance 120 Weight 55.7 kg 55.7 kg General appearance: PRESENT: no acute distress Exam: Looking very weak and tired Respiratory exam: PRESENT: clear to auscultation frankie, crackles. ABSENT: rhonchi Cardiovascular exam: PRESENT: +S1, +S2, systolic murmur GI/Abdominal exam: PRESENT: normal bowel sounds, soft. ABSENT: distended, firm , tenderness Extremities exam: PRESENT: +1 edema Neurological exam: PRESENT: awake, oriented to person, oriented to place Skin exam: ABSENT: erythema, mottled, rash Results Laboratory Results: 06/12/16 06:15 06/14/16 06:00 06/13/16 06/14/16 16:50 06:00 Sodium 140.6 141.4 Potassium 4.9 4.7 Chloride 102 103 Carbon Dioxide 25 26 Anion Gap 14 12 BUN 29 H 32 H Creatinine 3.62 H 4.35 H Est GFR ( Amer) 17 L 13 L Est GFR (Non-Af Amer) 14 L 11 L Glucose 60 L 66 L Calcium 8.4 8.2 L 05/29/16 05/30/16 05/31/16 23:45 05:55 05:15 Creatine Kinase 31 CK-MB (CK-2) 1.81 1.71 Troponin I 0.069 0.094 05/31/16 05:15 Creatine Kinase CK-MB (CK-2) 1.46 Troponin I 0.079 Impressions: Chest/Abdomen CTA 05/29/16 18:00 IMPRESSION: No evidence for pulmonary embolic disease. Extensive chronic appearing changes as noted above. Small right pleural effusion is again identified which appears slightly larger than on the previous study. The previously described rounded masslike density in the right lower lobe is again identified. There is a central somewhat low density area and the possibility of a necrotic neoplasm or developing lung abscess cannot be excluded. Large pericardial effusion is again identified. Other findings as noted above Modified Barium Swallow 06/11/16 00:00 IMPRESSION: FLASH LARYNGEAL PENETRATION FROM RESIDUALS, WITHOUT ASPIRATION, SEEN WITH PUREED CONSISTENCY.PLEASE SEE SPEECH PATHOLOGIST REPORT FOR OTHER FINDINGS AND RECOMMENDATIONS. Chest X-Ray 06/11/16 06:00 IMPRESSION: NO CHANGE IN APPEARANCE OF THE CHEST Assessment & Plan - Diagnosis (1) Acute hypoxemic respiratory failure Is this a current diagnosis for this admission?: YesPlan: She is currently on 2 L of oxygen through nasal cannula but desaturates once at this taken off. (2) End stage renal disease Is this a current diagnosis for this admission?: YesPlan: Patient undergoing dialysis. Patient is fluid overloaded. We will plan to remove at least 1- 2 L of fluid as tolerated. Orders were discussed with the treating nurse. (3) Lung abscess Qualifiers: Pulmonary abscess pneumonia presence: with pneumonia Laterality: right Lung location: unspecified part of lung Qualified Code(s): J85.1 - Abscess of lung with pneumonia Is this a current diagnosis for this admission?: NoPlan: Patient has recovered from septic shock. Patient on antibiotics. However noted rising white count which portends the possibility of persistent and recurring obstructive pneumonia. Monitor. (4) Lung cancer Qualifiers: Laterality: unspecified laterality Lung location: unspecified part of lung Qualified Code(s): C34.90 - Malignant neoplasm of unspecified part of unspecified bronchus or lung Is this a current diagnosis for this admission?: YesPlan: Has been seen at [facility] multiple times , but has had no definitive treatments done given the very poor prognosis and very poor serious comorbidities. (5) Septic shock Is this a current diagnosis for this admission?: Yes (6) Pericardial effusion Plan: Moderately large effusion without signs of tamponade. This is in conjunction with severely depressed cardiac function with an LV ejection fraction of less than 15%. Very poor prognosis.Cardiology involved. (7) Pulmonary fibrosis Is this a current diagnosis for this admission?: Yes (8) Scleroderma Is this a current diagnosis for this admission?: YesPlan: With severe comorbidities and complications of the disease. (9) Anemia Plan: Monitor. Adjust low-dose erythropoietin. (10) Cardiomyopathy Qualifiers: Cardiomyopathy type: unspecified Qualified Code(s): I42.9 - Cardiomyopathy, unspecified Is this a current diagnosis for this admission?: YesPlan: Recent most echocardiogram showing severely depressed biventricular function with an LV ejection fraction less than 15%. Very poor prognosis.
[2016-06-14] MEDS: CARVEDILOL 12.5 MG TABLET PO SCH ×2 (14:15→22:04)
[2016-06-14] MEDS: LISINOPRIL 5 MG TABLET PO SCH ×2 (14:15→22:04)
[2016-06-14] MEDS: MEGESTROL ACETATE SUSP 400 MG/10 ML UDCUP PO SCH (14:16)
[2016-06-14] MEDS: LORAZEPAM INJ 2 MG/1 ML VIAL IV PRN (16:01)
[2016-06-14] MEDS: VANCOMYCIN HCL 500 MG in DEXTROSE 5%-WATER 100 ML IV SCH (18:54)
--- NOTE | 2016-06-14 20:12 | PDOC PROGRESS REPORT ---
Subjective Progress Note for:: 06/14/16 Subjective:: Patient was seen by the bedside she has persistent hypoglycemia, presently on 10 % dextrose she also complained of painful gangrenous to of the left foot. I discussed with family about alternative nutrition, a PEG tube insertion, family will think about it and will get back to me tomorrow which option they prefer Physical Exam Vital Signs: Temp Pulse Resp BP Pulse Ox 97.9 F 95 19 155/11 H 100 06/14/16 12:00 06/14/16 16:50 06/14/16 16:50 06/14/16 12:00 06/14/16 16:50 Intake & Output 06/13/16 06/14/16 06/15/16 06:59 06:59 06:59 Intake Total 120 Balance 120 Weight 55.7 kg 55.7 kg General appearance: PRESENT: no acute distress Eye exam: PRESENT: PERRLA Cardiovascular exam: PRESENT: +S1, +S2 GI/Abdominal exam: PRESENT: soft Neurological exam: PRESENT: alert Results Laboratory Results: 06/12/16 06:15 06/14/16 06:00 06/14/16 06:00 Sodium 141.4 Potassium 4.7 Chloride 103 Carbon Dioxide 26 Anion Gap 12 BUN 32 H Creatinine 4.35 H Est GFR ( Amer) 13 L Est GFR (Non-Af Amer) 11 L Glucose 66 L Calcium 8.2 L 05/29/16 05/30/16 05/31/16 23:45 05:55 05:15 Creatine Kinase 31 CK-MB (CK-2) 1.81 1.71 Troponin I 0.069 0.094 05/31/16 05:15 Creatine Kinase CK-MB (CK-2) 1.46 Troponin I 0.079 Impressions: Chest/Abdomen CTA 05/29/16 18:00 IMPRESSION: No evidence for pulmonary embolic disease. Extensive chronic appearing changes as noted above. Small right pleural effusion is again identified which appears slightly larger than on the previous study. The previously described rounded masslike density in the right lower lobe is again identified. There is a central somewhat low density area and the possibility of a necrotic neoplasm or developing lung abscess cannot be excluded. Large pericardial effusion is again identified. Other findings as noted above Modified Barium Swallow 06/11/16 00:00 IMPRESSION: FLASH LARYNGEAL PENETRATION FROM RESIDUALS, WITHOUT ASPIRATION, SEEN WITH PUREED CONSISTENCY.PLEASE SEE SPEECH PATHOLOGIST REPORT FOR OTHER FINDINGS AND RECOMMENDATIONS. Chest X-Ray 06/11/16 06:00 IMPRESSION: NO CHANGE IN APPEARANCE OF THE CHEST Assessment & Plan - Diagnosis (1) Acute hypoxemic respiratory failure Is this a current diagnosis for this admission?: Yes (2) Lung cancer Qualifiers: Laterality: unspecified laterality Lung location: unspecified part of lung Qualified Code(s): C34.90 - Malignant neoplasm of unspecified part of unspecified bronchus or lung Is this a current diagnosis for this admission?: Yes (3) Lung abscess Qualifiers: Pulmonary abscess pneumonia presence: with pneumonia Laterality: right Lung location: unspecified part of lung Qualified Code(s): J85.1 - Abscess of lung with pneumonia Is this a current diagnosis for this admission?: No (4) End stage renal disease Is this a current diagnosis for this admission?: Yes (5) Cardiac arrest Is this a current diagnosis for this admission?: Yes (6) Cardiogenic shock Is this a current diagnosis for this admission?: Yes (7) Septic shock Is this a current diagnosis for this admission?: Yes (8) Hypoglycemia Is this a current diagnosis for this admission?: Yes (9) Anorexia Is this a current diagnosis for this admission?: Yes - Plan Summary Plan Summary: Consultation will be requested from surgery for possible amputation of the toe, it is very painful, it is gangrenous toe, she is probably better off without it
--- NOTE | 2016-06-14 21:20 | PDOC CONSULTATION ---
Consultation Consult Date: 06/14/16 Attending physician:: OCarol Consult reason:: Ischemic left second toe History of Present Illness Admission Date/PCP: 05/29/16 21:38 JORGE ALBERTO GARZA MD History of Present Illness: The information gathered is from talking with and from chart as patient intubated. FELISA MILES is a 40 year old female, with a h/o progressive lung cancer, end-stage renal disease on hemodialysis, systemic sclerosis complicated with pulmonary fibrosis and lung cancer, was brought to the emergency room with complaints of worsening shortness of breath started before her last dialysis but continued even after dialysis. In the emergency room she was evaluated she was found to be hypoxemic and then she was intubated. She was then transferred to the ICU . CTA chest was done and it showed extensive chronic changes with extensive subpleural honeycombing in the lung bases a small right pleural effusion which appears larger than previous study. Also found was a rounded masslike density in the right lower lobe there is a central low density on the possibility of a necrotic neoplasm or developing lung abscess cannot be excluded. There is bilateral groundglass opacities which could represent infiltrate or pulmonary edema. Patient overall prognosis is poor. The last time she was intubated she was transferred to [facility] where she was treated and ultimately she was extubated. The lung cancer is not being treated. She had episode of low blood pressure when she was intubated in the emergency room and she was treated with intravenous vasopressor. Soon after the her admission in the ER, patient was noted to go into pulseless electrical activity. This was confirmed as the patient had arterial line. Patient had brief cardiac compression and given epinephrine 1 dose of 1 mg. Patient subsequently came around. A 2-D echocardiogram was performed on stat basis. It did not show any evidence of tamponade. Patient did have pericardial effusion which is felt to be mild to moderate in severity except over the cranial aspect right atrium where it was more increased. Patient was also noted to have low blood sugar, patient was given 2 ampules of D50 IV and subsequently started on D5 half-normal saline drip. Dr. Garza has had multiple talks with patient's family including patient's daughter, . But they still want everything done and she is a full code and they have declined transfer to a tertiary care. Patient is on vasopressin after conversion from Levophed. Patient has been is by the bedside in the ICU as I see her. Discussions were done with the treating nurse Stephanie. Patient was seen undergoing hemodialysis when I came back subsequently. She looks very sick. Vital signs are stable with the arterial line showing that her blood pressure is holding. Discussions were done with the treating dialysis nurse Divya and will plan to do a 2 hour dialysis without removing any fluids. I had started her on normal saline earlier when I saw her. Surgeon's note: Patient is complaining of pain in both feet particularly her toes. Past Medical History Cardiac Medical History: Reports: DVT, Hyperlipidema, Hypertension Pulmonary Medical History: Reports: Asthma, Pneumonia Renal/ Medical History: Reports: End Stage Renal Disease Malignancy Medical History: Reports: Lung Cancer GI Medical History: Reports: Gastroesophageal Reflux Disease Musculoskeltal Medical History: Reports: Gout, Other - Systemic sclerosis complicated with pulmonary fibrosis, end-stage renal disease on hemodialysis Infectious Medical History: Denies: Methicillin-Resistant Staph Aureus Past Surgical History Past Surgical History: Reports: Section, Cholecystectomy, Other - Dialysis access related surgeries were noted Social History Smoking Status: Never Smoker Frequency of Alcohol Use: None Hx Recreational Drug Use: No Drugs: None Hx Prescription Drug Abuse: No - Advance Directive Resuscitation Status: Full Code Family History Family History: Reviewed & Not Pertinent Parental Family History Reviewed: Yes Children Family History Reviewed: Yes Sibling(s) Family History Reviewed.: Yes Medication/Allergy Home Medications: Hydrocodone/Acetaminophen [Hydrocodon-Acetamin 7.5-325/15] 15 ml PO Q6HP PRN Metoprolol Tartrate [Lopressor 100 mg Tablet] 100 mg PO Q12 05/31/16 Sertraline HCl [Zoloft 50 mg Tablet] 50 mg PO DAILY 05/31/16 Tramadol HCl/Acetaminophen [Tramadol-Acetaminophn 37.5-325] 1 each PO Q6 Allergies/Adverse Reactions: Shellfish * [Shellfish] Allergy (Verified 05/29/16 17:26) Physical Exam Vital Signs: Temp Pulse Resp BP Pulse Ox 97.9 F 95 19 155/11 H 100 06/14/16 12:00 06/14/16 16:50 06/14/16 16:50 06/14/16 12:00 06/14/16 16:50 Intake & Output 06/13/16 06/14/16 06/15/16 06:59 06:59 06:59 Intake Total 120 Output Total 500 Balance 120 -500 Weight 55.7 kg 55.7 kg General appearance: PRESENT: mild distress Extremities exam: PRESENT: other - Patient has palpable femoral, popliteal, dorsalis pedis pulses 1. There are ischemic changes to her foot and a mottled brachial distribution. The left second toe has dry ischemic changes distally. The feet are warm but the toes are cool particularly the first toes. Results Laboratory Results: 06/12/16 06:15 06/14/16 06:00 06/14/16 06:00 Sodium 141.4 Potassium 4.7 Chloride 103 Carbon Dioxide 26 Anion Gap 12 BUN 32 H Creatinine 4.35 H Est GFR ( Amer) 13 L Est GFR (Non-Af Amer) 11 L Glucose 66 L Calcium 8.2 L 05/29/16 05/30/16 05/31/16 23:45 05:55 05:15 Creatine Kinase 31 CK-MB (CK-2) 1.81 1.71 Troponin I 0.069 0.094 05/31/16 05:15 Creatine Kinase CK-MB (CK-2) 1.46 Troponin I 0.079 Impressions: Chest/Abdomen CTA 05/29/16 18:00 IMPRESSION: No evidence for pulmonary embolic disease. Extensive chronic appearing changes as noted above. Small right pleural effusion is again identified which appears slightly larger than on the previous study. The previously described rounded masslike density in the right lower lobe is again identified. There is a central somewhat low density area and the possibility of a necrotic neoplasm or developing lung abscess cannot be excluded. Large pericardial effusion is again identified. Other findings as noted above Modified Barium Swallow 06/11/16 00:00 IMPRESSION: FLASH LARYNGEAL PENETRATION FROM RESIDUALS, WITHOUT ASPIRATION, SEEN WITH PUREED CONSISTENCY.PLEASE SEE SPEECH PATHOLOGIST REPORT FOR OTHER FINDINGS AND RECOMMENDATIONS. Chest X-Ray 06/11/16 06:00 IMPRESSION: NO CHANGE IN APPEARANCE OF THE CHEST Assessment & Plan - Diagnosis (1) Gangrene of toe Is this a current diagnosis for this admission?: YesPlan: 1. Patient has chronic ischemic changes to multiple toes, with dry gangrene of the left second. There is nothing acute, nothing actively infected and therefore nothing to debride. 2. The distribution of chronic ischemic changes, in light of palpable pulses in the feet, which suggest a possible thromboembolic source. In this extremely debilitated woman, the risk of any further diagnostic and therapeutic intervention far outweighs any potential benefit. I have suggested placing alcohol swabs between the toes. Thank you very much.
[2016-06-15] MEDS: LORAZEPAM INJ 2 MG/1 ML VIAL IV PRN ×2 (01:22→20:08)
[2016-06-15] MEDS: HEPARIN SOD (PORCINE) 5,000 UNIT/ML 1 ML SYRINGE SUBCUT SCH ×3 (05:44→22:20)
[2016-06-15 06:27] LABS: ARTERIAL BLOOD BASE EXCESS 4.1 mmol/L; ARTERIAL BLOOD O2 SATURATION 94.7 % (94-98)
--- NOTE | 2016-06-15 06:57 | PDOC PROGRESS REPORT ---
Subjective Progress Note for:: 06/14/16 Subjective:: Patient seen on dialysis. Basically still the same. Seems very debilitated and emaciated. Patient is maintaining good respiration. Patient noted to be intermittently tachycardic. Patient did have a follow-up echocardiogram which showed severely depressed LVEF , best estimate of EF is about 15%. In addition right ventricular ejection fraction also seems severely depressed. Moderate to severe mitral regurgitation noted. Medications reviewed. Physical Exam Vital Signs: Temp Pulse Resp BP Pulse Ox 97.9 F 95 19 155/11 H 100 06/14/16 12:00 06/14/16 16:50 06/14/16 16:50 06/14/16 12:00 06/14/16 16:50 Intake & Output 06/13/16 06/14/16 06/15/16 06:59 06:59 06:59 Intake Total 120 Output Total 500 Balance 120 -500 Weight 55.7 kg 55.7 kg Exam: GENERAL: Emaciated and cachectic and in no acute distress. Alert and oriented x3 HEAD: Atraumatic, normocephalic. Patient looks very debilitated and somewhat cachectic. EYES: Pupils equal round and reactive to light, extraocular movements intact, sclera anicteric, conjunctiva are normal. ENT: TMs normal, nares patent, oropharynx clear without exudates. Moist mucous membranes. No oral ulcerations or bleeding gums noted NECK: supple without lymphadenopathy. Trachea is central. No cervical or axillary lymphadenopathy noted. Carotids are 2+, JVD WNL LUNGS: Respiration seems nonlabored, no significant accessory muscle action noted. Breath sounds clear to auscultation bilaterally and equal noted. No wheezes rales or rhonchi noted. No significant dullness noted on percussion. CHEST: Palpation of the chest wall shows no significant chest wall tenderness. No other significant abnormalities noted. 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 ABDOMEN: Soft, no significant tenderness appreciated, normoactive bowel sounds. No guarding, no rebound. No rigidity noted . No masses appreciated. EXTREMITIES: Pedal pulses are markedly diminished +, no calf tenderness noted. No clubbing or cyanosis.1+ pedal edema noted. Ulcerations noted on tip toes and also some fingers tips. The mostly dry ulcerations and small. To be evaluated by vascular surgeon NEUROLOGICAL: Focused neurological exam showed no significant neurologic deficit. Normal speech, no focal weakness appreciated. Patient has low volume of speech. PSYCH: Normal mood, normal affect. Judgment and insight within normal limits. SKIN: No significant ecchymosis, rash, signs of pruritus noted. Significant to scleroderma changes are noted. MUSCULOSKELETAL EXAM: No significant joint swelling noted. Results Laboratory Results: 06/12/16 06:15 06/14/16 06:00 06/14/16 06:00 Sodium 141.4 Potassium 4.7 Chloride 103 Carbon Dioxide 26 Anion Gap 12 BUN 32 H Creatinine 4.35 H Est GFR ( Amer) 13 L Est GFR (Non-Af Amer) 11 L Glucose 66 L Calcium 8.2 L 05/29/16 05/30/16 05/31/16 23:45 05:55 05:15 Creatine Kinase 31 CK-MB (CK-2) 1.81 1.71 Troponin I 0.069 0.094 05/31/16 05:15 Creatine Kinase CK-MB (CK-2) 1.46 Troponin I 0.079 Impressions: Chest/Abdomen CTA 05/29/16 18:00 IMPRESSION: No evidence for pulmonary embolic disease. Extensive chronic appearing changes as noted above. Small right pleural effusion is again identified which appears slightly larger than on the previous study. The previously described rounded masslike density in the right lower lobe is again identified. There is a central somewhat low density area and the possibility of a necrotic neoplasm or developing lung abscess cannot be excluded. Large pericardial effusion is again identified. Other findings as noted above Modified Barium Swallow 06/11/16 00:00 IMPRESSION: FLASH LARYNGEAL PENETRATION FROM RESIDUALS, WITHOUT ASPIRATION, SEEN WITH PUREED CONSISTENCY.PLEASE SEE SPEECH PATHOLOGIST REPORT FOR OTHER FINDINGS AND RECOMMENDATIONS. Chest X-Ray 06/11/16 06:00 IMPRESSION: NO CHANGE IN APPEARANCE OF THE CHEST Assessment & Plan - Diagnosis (1) Acute hypoxemic respiratory failure Is this a current diagnosis for this admission?: Yes (2) End stage renal disease Is this a current diagnosis for this admission?: Yes (3) Lung cancer Qualifiers: Laterality: unspecified laterality Lung location: unspecified part of lung Qualified Code(s): C34.90 - Malignant neoplasm of unspecified part of unspecified bronchus or lung Is this a current diagnosis for this admission?: Yes (4) Septic shock Is this a current diagnosis for this admission?: Yes (5) Pulmonary fibrosis Is this a current diagnosis for this admission?: Yes (6) Scleroderma Is this a current diagnosis for this admission?: Yes (7) Cardiomyopathy Qualifiers: Cardiomyopathy type: unspecified Qualified Code(s): I42.9 - Cardiomyopathy, unspecified Is this a current diagnosis for this admission?: Yes - Notes Notes: Patient remains very debilitated and sick. She has severe multiple advanced medical condition. At this point we are just trying to maintain her as best as we can. Patient's medical regimen for cardiomyopathy is being gradually optimized. Patient seems to be tolerating slow dialysis okay. Will continue to follow patient's but overall prognosis is guarded. Telemetry strips reviewed showed intermittent mild sinus tachycardia. - Time Time with patient: 15-25 minutes - CODE STATUS was discussed, patient remains full code. Surrogate decision-maker unchanged. Multiple medical problems were addressed.More than 50% of the time spent coordinating care, discussing management plans with involved caregivers. Management plans discussed with involved personnels. Medical decision making was of moderate complexity. Medications reviewed and adjusted accordingly: Yes
[2016-06-15 07:27] LABS: ANION GAP 8 (5-19); BLOOD UREA NITROGEN 18 mg/dL (7-20); CALCIUM 8.2 mg/dL (8.4-10.2); CARBON DIOXIDE 30 mmol/L (22-30); CHLORIDE 103 mmol/L (98-107); CREATININE RESULT 2.77 mg/dL (0.52-1.25); GLUCOSE 89 mg/dL (75-110); POTASSIUM 3.8 mmol/L (3.6-5.0); SODIUM 140.6 mmol/L (137-145)
--- NOTE | 2016-06-15 07:59 | PDOC PROGRESS REPORT ---
Subjective Progress Note for:: 06/15/16 Subjective:: Patient seen on dialysis. Basically still the same. Seems very debilitated and emaciated. Patient is maintaining good respiration. Patient noted to be intermittently tachycardic. Lisinopril dose increased to 10 mg by mouth twice a day. Physical Exam Vital Signs: Temp Pulse Resp BP Pulse Ox 97.5 F 66 18 147/88 H 79 L 06/15/16 03:29 06/15/16 03:29 06/15/16 04:30 06/15/16 03:29 06/15/16 00:00 Intake & Output 06/14/16 06/15/16 06/16/16 06:59 06:59 06:59 Intake Total 620 Output Total 500 Balance 120 Weight 55.7 kg 53 kg Exam: GENERAL: Emaciated. Alert and oriented x3 HEAD: Atraumatic, normocephalic. Patient looks very debilitated and somewhat cachectic. EYES: Pupils equal round and reactive to light, extraocular movements intact, sclera anicteric, conjunctiva are normal. ENT: TMs normal, nares patent, oropharynx clear without exudates. Moist mucous membranes. No oral ulcerations or bleeding gums noted NECK: supple without lymphadenopathy. Trachea is central. No cervical or axillary lymphadenopathy noted. Carotids are 2+, JVD WNL LUNGS: Respiration seems nonlabored, no significant accessory muscle action noted. Breath sounds clear to auscultation bilaterally and equal noted. No wheezes rales or rhonchi noted. No significant dullness noted on percussion. CHEST: Palpation of the chest wall shows no significant chest wall tenderness. No other significant abnormalities noted. 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 ABDOMEN: Soft, no significant tenderness appreciated, normoactive bowel sounds. No guarding, no rebound. No rigidity noted . No masses appreciated. EXTREMITIES: Pedal pulses are markedly diminished +, no calf tenderness noted. No clubbing or cyanosis.1+ pedal edema noted. Ulcerations noted on tip toes and also some fingers tips. The mostly dry ulcerations and small. To be evaluated by vascular surgeon NEUROLOGICAL: Focused neurological exam showed no significant neurologic deficit. Normal speech, no focal weakness appreciated. Patient has low volume of speech. PSYCH: Normal mood, normal affect. Judgment and insight within normal limits. SKIN: No significant ecchymosis, rash, signs of pruritus noted. Significant skin and finger scleroderma changes are noted. MUSCULOSKELETAL EXAM: No significant joint swelling noted. Results Laboratory Results: 06/12/16 06:15 06/15/16 06:50 06/15/16 06/15/16 06:15 06:50 Carbonic Acid 1.26 HCO3/H2CO3 Ratio 22:1 ABG pH 7.45 ABG pCO2 42.0 ABG pO2 70.1 L ABG HCO3 28.5 H ABG O2 Saturation 94.7 ABG Base Excess 4.1 FiO2 30% Sodium 140.6 Potassium 3.8 Chloride 103 Carbon Dioxide 30 Anion Gap 8 BUN 18 Creatinine 2.77 H Est GFR ( Amer) 23 L Est GFR (Non-Af Amer) 19 L Glucose 89 Calcium 8.2 L 05/29/16 05/30/16 05/31/16 23:45 05:55 05:15 Creatine Kinase 31 CK-MB (CK-2) 1.81 1.71 Troponin I 0.069 0.094 05/31/16 05:15 Creatine Kinase CK-MB (CK-2) 1.46 Troponin I 0.079 Impressions: Chest/Abdomen CTA 05/29/16 18:00 IMPRESSION: No evidence for pulmonary embolic disease. Extensive chronic appearing changes as noted above. Small right pleural effusion is again identified which appears slightly larger than on the previous study. The previously described rounded masslike density in the right lower lobe is again identified. There is a central somewhat low density area and the possibility of a necrotic neoplasm or developing lung abscess cannot be excluded. Large pericardial effusion is again identified. Other findings as noted above Modified Barium Swallow 06/11/16 00:00 IMPRESSION: FLASH LARYNGEAL PENETRATION FROM RESIDUALS, WITHOUT ASPIRATION, SEEN WITH PUREED CONSISTENCY.PLEASE SEE SPEECH PATHOLOGIST REPORT FOR OTHER FINDINGS AND RECOMMENDATIONS. Chest X-Ray 06/11/16 06:00 IMPRESSION: NO CHANGE IN APPEARANCE OF THE CHEST Assessment & Plan - Diagnosis (1) Acute hypoxemic respiratory failure Is this a current diagnosis for this admission?: Yes (2) End stage renal disease Is this a current diagnosis for this admission?: Yes (3) Lung cancer Qualifiers: Laterality: unspecified laterality Lung location: unspecified part of lung Qualified Code(s): C34.90 - Malignant neoplasm of unspecified part of unspecified bronchus or lung Is this a current diagnosis for this admission?: Yes (4) Septic shock Is this a current diagnosis for this admission?: Yes (5) Pulmonary fibrosis Is this a current diagnosis for this admission?: Yes (6) Scleroderma Is this a current diagnosis for this admission?: Yes (7) Cardiomyopathy Qualifiers: Cardiomyopathy type: unspecified Qualified Code(s): I42.9 - Cardiomyopathy, unspecified Is this a current diagnosis for this admission?: Yes - Notes Notes: Patient remains very debilitated and significantly ill. Have increased lisinopril to 10 mg by mouth twice a day. If well tolerated and will try to go up on carvedilol tomorrow. Patient has significant scleroderma and some significant small vessel disease. Hydralazine nitrate combination may be added to current regimen. Patient should continue with dialysis and other supportive care. Overall prognosis still on the poor side. This is predominantly due to multiple severe progressive conditions. - Time Time with patient: 15-25 minutes - CODE STATUS was discussed, patient remains full code. Surrogate decision-maker unchanged. Multiple medical problems were addressed.More than 50% of the time spent coordinating care, discussing management plans with involved caregivers. Management plans discussed with involved personnels. Medical decision making was of moderate complexity.
[2016-06-15] MEDS: IPRATROPIUM/ALBUTEROL 0.5-2.5 MG/3 ML AMPUL NEB PRN ×4 (10:35→23:47)
[2016-06-15] MEDS: CARVEDILOL 12.5 MG TABLET PO SCH ×2 (10:57→22:20)
[2016-06-15] MEDS: MEGESTROL ACETATE SUSP 400 MG/10 ML UDCUP PO SCH (10:57)
[2016-06-15] MEDS: LISINOPRIL 10 MG TABLET PO SCH ×2 (10:58→22:20)
--- NOTE | 2016-06-15 20:13 | PDOC PROGRESS REPORT ---
Subjective Progress Note for:: 06/15/16 Subjective:: As I indicated patient's condition remained precarious and very poor, she has persistent hypoglycemia and she required 10% dextrose Physical Exam Vital Signs: Temp Pulse Resp BP Pulse Ox 97.6 F 99 24 H 143/111 H 96 06/15/16 15:08 06/15/16 16:20 06/15/16 16:20 06/15/16 15:08 06/15/16 16:20 Intake & Output 06/14/16 06/15/16 06/16/16 06:59 06:59 06:59 Intake Total 620 140 Output Total 500 200 Balance 120 -60 Weight 55.7 kg 53 kg General appearance: PRESENT: no acute distress Eye exam: PRESENT: PERRLA Respiratory exam: PRESENT: clear to auscultation frankie Cardiovascular exam: PRESENT: +S1, +S2 GI/Abdominal exam: PRESENT: soft Neurological exam: PRESENT: alert Results Laboratory Results: 06/12/16 06:15 06/15/16 06:50 06/15/16 06/15/16 06:15 06:50 Carbonic Acid 1.26 HCO3/H2CO3 Ratio 22:1 ABG pH 7.45 ABG pCO2 42.0 ABG pO2 70.1 L ABG HCO3 28.5 H ABG O2 Saturation 94.7 ABG Base Excess 4.1 FiO2 30% Sodium 140.6 Potassium 3.8 Chloride 103 Carbon Dioxide 30 Anion Gap 8 BUN 18 Creatinine 2.77 H Est GFR ( Amer) 23 L Est GFR (Non-Af Amer) 19 L Glucose 89 Calcium 8.2 L 05/29/16 05/30/16 05/31/16 23:45 05:55 05:15 Creatine Kinase 31 CK-MB (CK-2) 1.81 1.71 Troponin I 0.069 0.094 05/31/16 05:15 Creatine Kinase CK-MB (CK-2) 1.46 Troponin I 0.079 Impressions: Chest/Abdomen CTA 05/29/16 18:00 IMPRESSION: No evidence for pulmonary embolic disease. Extensive chronic appearing changes as noted above. Small right pleural effusion is again identified which appears slightly larger than on the previous study. The previously described rounded masslike density in the right lower lobe is again identified. There is a central somewhat low density area and the possibility of a necrotic neoplasm or developing lung abscess cannot be excluded. Large pericardial effusion is again identified. Other findings as noted above Modified Barium Swallow 06/11/16 00:00 IMPRESSION: FLASH LARYNGEAL PENETRATION FROM RESIDUALS, WITHOUT ASPIRATION, SEEN WITH PUREED CONSISTENCY.PLEASE SEE SPEECH PATHOLOGIST REPORT FOR OTHER FINDINGS AND RECOMMENDATIONS. Chest X-Ray 06/11/16 06:00 IMPRESSION: NO CHANGE IN APPEARANCE OF THE CHEST Assessment & Plan - Diagnosis (1) Acute hypoxemic respiratory failure Is this a current diagnosis for this admission?: Yes (2) Lung cancer Qualifiers: Laterality: unspecified laterality Lung location: unspecified part of lung Qualified Code(s): C34.90 - Malignant neoplasm of unspecified part of unspecified bronchus or lung Is this a current diagnosis for this admission?: Yes (3) Lung abscess Qualifiers: Pulmonary abscess pneumonia presence: with pneumonia Laterality: right Lung location: unspecified part of lung Qualified Code(s): J85.1 - Abscess of lung with pneumonia Is this a current diagnosis for this admission?: No (4) End stage renal disease Is this a current diagnosis for this admission?: Yes (5) Cardiac arrest Is this a current diagnosis for this admission?: Yes (6) Cardiogenic shock Is this a current diagnosis for this admission?: Yes (7) Septic shock Is this a current diagnosis for this admission?: Yes (8) Hypoglycemia Is this a current diagnosis for this admission?: Yes (9) Anorexia Is this a current diagnosis for this admission?: Yes (10) Gangrene of toe Is this a current diagnosis for this admission?: Yes
[2016-06-16] MEDS: DEXTROSE 50%-WATER SYRINGE 25 GM/50 ML DOSE IV PRN ×3 (00:03→22:52)
[2016-06-16] MEDS: LORAZEPAM INJ 2 MG/1 ML VIAL IV PRN ×2 (05:43→16:31)
[2016-06-16] MEDS: HEPARIN SOD (PORCINE) 5,000 UNIT/ML 1 ML SYRINGE SUBCUT SCH ×3 (05:43→22:43)
[2016-06-16 06:41] LABS: ABSOLUTE LYMPHOCYTES (AUTO) 0.9 10^3/uL (0.5-4.7); ABSOLUTE MONOCYTES (AUTO) 0.5 10^3/uL (0.1-1.4); ABSOLUTE NEUT (AUTO) 10.4 10^3/uL (1.7-8.2); BASOPHILS % (AUTO) 0.3 % (0-2); EOSINOPHILS % (AUTO) 0.2 % (0-6); HEMATOCRIT 26.3 % (36.0-47.0); HEMOGLOBIN 8.1 g/dL (12.0-15.5); LYMPHOCYTES % (AUTO) 7.5 % (13-45); MEAN CORPUSCULAR HEMOGLOBIN 28.3 pg (27.0-33.4); MEAN CORPUSCULAR HGB CONC 30.6 g/dL (32.0-36.0); MEAN CORPUSCULAR VOLUME 93 fl (80-97); MONOCYTES % (AUTO) 3.9 % (3-13); RED BLOOD COUNT 2.84 10^6/uL (3.72-5.28); RED CELL DISTRIBUTION WIDTH 18.3 % (11.5-14.0); SEGMENTED NEUTROPHILS % (AUTO) 88.1 % (42-78); WHITE BLOOD COUNT 11.8 10^3/uL (4.0-10.5)
[2016-06-16 08:05] LABS: ANION GAP 11 (5-19); BLOOD UREA NITROGEN 23 mg/dL (7-20); CALCIUM 7.8 mg/dL (8.4-10.2); CARBON DIOXIDE 27 mmol/L (22-30); CHLORIDE 102 mmol/L (98-107); CREATININE RESULT 3.55 mg/dL (0.52-1.25); GLUCOSE 107 mg/dL (75-110); POTASSIUM 3.8 mmol/L (3.6-5.0)
[2016-06-16] MEDS: CARVEDILOL 12.5 MG TABLET PO SCH ×2 (10:15→22:43)
[2016-06-16] MEDS: MEGESTROL ACETATE SUSP 400 MG/10 ML UDCUP PO SCH (10:15)
[2016-06-16] MEDS: LISINOPRIL 10 MG TABLET PO SCH ×2 (10:15→22:43)
[2016-06-16] MEDS: IPRATROPIUM/ALBUTEROL 0.5-2.5 MG/3 ML AMPUL NEB PRN ×2 (10:58→16:00)
--- NOTE | 2016-06-16 15:41 | PDOC PROGRESS REPORT ---
Subjective Progress Note for:: 06/16/16 Subjective:: She is undergoing dialysis. Discussions were done with the treating nurse. She looks rather weak and states she that she just does not feel very good. Also complains of sore throat and unable to eat according to her and is being looked after by Dr. Donato. She denies any history of headaches or seizures. Very poor appetite and poor intake therefore.Denies chest pains, dyspnea, fever or chills. Physical Exam Vital Signs: Temp Pulse Resp BP Pulse Ox 98.2 F 89 20 150/101 H 98 06/16/16 12:00 06/16/16 12:00 06/16/16 12:00 06/16/16 12:00 06/16/16 12:00 Intake & Output 06/15/16 06/16/16 06/17/16 06:59 06:59 06:59 Intake Total 620 640 Output Total 500 400 Balance 120 240 Weight 53 kg 54.2 kg General appearance: PRESENT: disheveled, thin Exam: She looks quite moribund and cachectic. Respiratory exam: PRESENT: clear to auscultation frankie, crackles. ABSENT: rhonchi Cardiovascular exam: PRESENT: +S1, +S2, systolic murmur GI/Abdominal exam: PRESENT: normal bowel sounds, soft. ABSENT: distended, firm , tenderness Results Laboratory Results: 06/16/16 05:50 06/16/16 05:50 06/16/16 06/16/16 05:50 05:50 WBC 11.8 H RBC 2.84 L Hgb 8.1 L Hct 26.3 L MCV 93 MCH 28.3 MCHC 30.6 L RDW 18.3 H Plt Count 211 Seg Neutrophils % 88.1 H Lymphocytes % 7.5 L Monocytes % 3.9 Eosinophils % 0.2 Basophils % 0.3 Absolute Neutrophils 10.4 H Absolute Lymphocytes 0.9 Absolute Monocytes 0.5 Absolute Eosinophils 0.0 Absolute Basophils 0.0 Sodium 140.0 Potassium 3.8 Chloride 102 Carbon Dioxide 27 Anion Gap 11 BUN 23 H Creatinine 3.55 H Est GFR ( Amer) 17 L Est GFR (Non-Af Amer) 14 L Glucose 107 Calcium 7.8 L 05/29/16 05/30/16 05/31/16 23:45 05:55 05:15 Creatine Kinase 31 CK-MB (CK-2) 1.81 1.71 Troponin I 0.069 0.094 05/31/16 05:15 Creatine Kinase CK-MB (CK-2) 1.46 Troponin I 0.079 Impressions: Chest/Abdomen CTA 05/29/16 18:00 IMPRESSION: No evidence for pulmonary embolic disease. Extensive chronic appearing changes as noted above. Small right pleural effusion is again identified which appears slightly larger than on the previous study. The previously described rounded masslike density in the right lower lobe is again identified. There is a central somewhat low density area and the possibility of a necrotic neoplasm or developing lung abscess cannot be excluded. Large pericardial effusion is again identified. Other findings as noted above Modified Barium Swallow 06/11/16 00:00 IMPRESSION: FLASH LARYNGEAL PENETRATION FROM RESIDUALS, WITHOUT ASPIRATION, SEEN WITH PUREED CONSISTENCY.PLEASE SEE SPEECH PATHOLOGIST REPORT FOR OTHER FINDINGS AND RECOMMENDATIONS. Chest X-Ray 06/11/16 06:00 IMPRESSION: NO CHANGE IN APPEARANCE OF THE CHEST Assessment & Plan - Diagnosis (1) Acute hypoxemic respiratory failure Is this a current diagnosis for this admission?: Yes (2) End stage renal disease Is this a current diagnosis for this admission?: YesPlan: Patient undergoing dialysis. Patient is fluid overloaded. We will plan to remove at least 1 L of fluid as tolerated. Orders were discussed with the treating nurse. (3) Lung abscess Qualifiers: Pulmonary abscess pneumonia presence: with pneumonia Laterality: right Lung location: unspecified part of lung Qualified Code(s): J85.1 - Abscess of lung with pneumonia Is this a current diagnosis for this admission?: NoPlan: Patient has recovered from septic shock. Patient on antibiotics. (4) Lung cancer Qualifiers: Laterality: unspecified laterality Lung location: unspecified part of lung Qualified Code(s): C34.90 - Malignant neoplasm of unspecified part of unspecified bronchus or lung Is this a current diagnosis for this admission?: YesPlan: Has been seen at [facility] multiple times , but has had no definitive treatments done given the very poor prognosis and very poor serious comorbidities. (5) Septic shock Is this a current diagnosis for this admission?: Yes (7) Pulmonary fibrosis Is this a current diagnosis for this admission?: Yes (8) Scleroderma Is this a current diagnosis for this admission?: YesPlan: With severe comorbidities and complications of the disease. (9) Anemia Plan: Monitor. Adjust low-dose erythropoietin. (10) Cardiomyopathy Qualifiers: Cardiomyopathy type: unspecified Qualified Code(s): I42.9 - Cardiomyopathy, unspecified Is this a current diagnosis for this admission?: YesPlan: LV ejection fraction less than 15%. Very poor prognosis.
[2016-06-16] MEDS ORDERED: HEPARIN SOD (PORCINE) 1,000 UNIT/ML 10 ML VIAL IV PRN (16:22)
[2016-06-16] MEDS: EPOETIN ALFA INJ 20000 UNIT/1 ML VIAL (RENAL) IV PRN (17:00)
--- NOTE | 2016-06-16 17:11 | PDOC PROGRESS REPORT ---
Subjective Progress Note for:: 06/15/16 Subjective:: requiring NIPPV continuously Physical Exam Vital Signs: Temp Pulse Resp BP Pulse Ox 98.2 F 63 18 150/101 H 98 06/16/16 12:00 06/16/16 16:00 06/16/16 16:00 06/16/16 12:00 06/16/16 12:00 Intake & Output 06/15/16 06/16/16 06/17/16 06:59 06:59 06:59 Intake Total 620 640 Output Total 500 400 Balance 120 240 Weight 53 kg 54.2 kg General appearance: PRESENT: no acute distress, cooperative, disheveled, other - Cachectic Head exam: PRESENT: atraumatic, normocephalic Eye exam: PRESENT: conjunctiva pale, EOMI Mouth exam: PRESENT: dry mucosa Neck exam: ABSENT: carotid bruit, JVD, lymphadenopathy, thyromegaly Respiratory exam: PRESENT: crackles, decreased breath sounds, prolonged expiratory phas, symmetrical, other - On BiPAP Cardiovascular exam: PRESENT: irregular rhythm Pulses: PRESENT: normal radial pulses GI/Abdominal exam: PRESENT: ascites Rectal exam: PRESENT: deferred Gentrourinary exam: PRESENT: indwelling catheter Neurological exam: PRESENT: awake Skin exam: PRESENT: dry, pallor Results Laboratory Results: 06/16/16 05:50 06/16/16 05:50 06/16/16 06/16/16 05:50 05:50 WBC 11.8 H RBC 2.84 L Hgb 8.1 L Hct 26.3 L MCV 93 MCH 28.3 MCHC 30.6 L RDW 18.3 H Plt Count 211 Seg Neutrophils % 88.1 H Lymphocytes % 7.5 L Monocytes % 3.9 Eosinophils % 0.2 Basophils % 0.3 Absolute Neutrophils 10.4 H Absolute Lymphocytes 0.9 Absolute Monocytes 0.5 Absolute Eosinophils 0.0 Absolute Basophils 0.0 Sodium 140.0 Potassium 3.8 Chloride 102 Carbon Dioxide 27 Anion Gap 11 BUN 23 H Creatinine 3.55 H Est GFR ( Amer) 17 L Est GFR (Non-Af Amer) 14 L Glucose 107 Calcium 7.8 L 05/29/16 05/30/16 05/31/16 23:45 05:55 05:15 Creatine Kinase 31 CK-MB (CK-2) 1.81 1.71 Troponin I 0.069 0.094 05/31/16 05:15 Creatine Kinase CK-MB (CK-2) 1.46 Troponin I 0.079 Impressions: Chest/Abdomen CTA 05/29/16 18:00 IMPRESSION: No evidence for pulmonary embolic disease. Extensive chronic appearing changes as noted above. Small right pleural effusion is again identified which appears slightly larger than on the previous study. The previously described rounded masslike density in the right lower lobe is again identified. There is a central somewhat low density area and the possibility of a necrotic neoplasm or developing lung abscess cannot be excluded. Large pericardial effusion is again identified. Other findings as noted above Modified Barium Swallow 06/11/16 00:00 IMPRESSION: FLASH LARYNGEAL PENETRATION FROM RESIDUALS, WITHOUT ASPIRATION, SEEN WITH PUREED CONSISTENCY.PLEASE SEE SPEECH PATHOLOGIST REPORT FOR OTHER FINDINGS AND RECOMMENDATIONS. Chest X-Ray 06/11/16 06:00 IMPRESSION: NO CHANGE IN APPEARANCE OF THE CHEST Assessment & Plan - Diagnosis (1) Acute hypoxemic respiratory failure Is this a current diagnosis for this admission?: Yes (2) End stage renal disease Is this a current diagnosis for this admission?: Yes (3) Lung abscess Qualifiers: Pulmonary abscess pneumonia presence: with pneumonia Laterality: right Lung location: unspecified part of lung Qualified Code(s): J85.1 - Abscess of lung with pneumonia Is this a current diagnosis for this admission?: No (4) Lung cancer Qualifiers: Laterality: unspecified laterality Lung location: unspecified part of lung Qualified Code(s): C34.90 - Malignant neoplasm of unspecified part of unspecified bronchus or lung Is this a current diagnosis for this admission?: Yes (5) Scleroderma Is this a current diagnosis for this admission?: Yes
--- NOTE | 2016-06-16 17:13 | PDOC PROGRESS REPORT ---
Subjective Progress Note for:: 06/15/16 Subjective:: requiring NIPPV Physical Exam Vital Signs: Temp Pulse Resp BP Pulse Ox 98.2 F 63 18 150/101 H 98 06/16/16 12:00 06/16/16 16:00 06/16/16 16:00 06/16/16 12:00 06/16/16 12:00 Intake & Output 06/15/16 06/16/16 06/17/16 06:59 06:59 06:59 Intake Total 620 640 Output Total 500 400 Balance 120 240 Weight 53 kg 54.2 kg General appearance: PRESENT: disheveled, other - Cachectic Head exam: PRESENT: atraumatic, normocephalic Eye exam: PRESENT: conjunctiva pale, EOMI Mouth exam: PRESENT: dry mucosa Neck exam: ABSENT: carotid bruit, JVD, lymphadenopathy, thyromegaly Respiratory exam: PRESENT: decreased breath sounds, prolonged expiratory phas, other - On BiPAP Cardiovascular exam: PRESENT: irregular rhythm Pulses: PRESENT: normal radial pulses GI/Abdominal exam: PRESENT: normal bowel sounds, soft. ABSENT: distended, guarding, mass, organolmegaly, rebound, tenderness Rectal exam: PRESENT: deferred Gentrourinary exam: PRESENT: indwelling catheter Musculoskeletal exam: PRESENT: normal inspection Neurological exam: PRESENT: awake Skin exam: PRESENT: dry, warm Results Laboratory Results: 06/16/16 05:50 06/16/16 05:50 06/16/16 06/16/16 05:50 05:50 WBC 11.8 H RBC 2.84 L Hgb 8.1 L Hct 26.3 L MCV 93 MCH 28.3 MCHC 30.6 L RDW 18.3 H Plt Count 211 Seg Neutrophils % 88.1 H Lymphocytes % 7.5 L Monocytes % 3.9 Eosinophils % 0.2 Basophils % 0.3 Absolute Neutrophils 10.4 H Absolute Lymphocytes 0.9 Absolute Monocytes 0.5 Absolute Eosinophils 0.0 Absolute Basophils 0.0 Sodium 140.0 Potassium 3.8 Chloride 102 Carbon Dioxide 27 Anion Gap 11 BUN 23 H Creatinine 3.55 H Est GFR ( Amer) 17 L Est GFR (Non-Af Amer) 14 L Glucose 107 Calcium 7.8 L 05/29/16 05/30/16 05/31/16 23:45 05:55 05:15 Creatine Kinase 31 CK-MB (CK-2) 1.81 1.71 Troponin I 0.069 0.094 05/31/16 05:15 Creatine Kinase CK-MB (CK-2) 1.46 Troponin I 0.079 Impressions: Chest/Abdomen CTA 05/29/16 18:00 IMPRESSION: No evidence for pulmonary embolic disease. Extensive chronic appearing changes as noted above. Small right pleural effusion is again identified which appears slightly larger than on the previous study. The previously described rounded masslike density in the right lower lobe is again identified. There is a central somewhat low density area and the possibility of a necrotic neoplasm or developing lung abscess cannot be excluded. Large pericardial effusion is again identified. Other findings as noted above Modified Barium Swallow 06/11/16 00:00 IMPRESSION: FLASH LARYNGEAL PENETRATION FROM RESIDUALS, WITHOUT ASPIRATION, SEEN WITH PUREED CONSISTENCY.PLEASE SEE SPEECH PATHOLOGIST REPORT FOR OTHER FINDINGS AND RECOMMENDATIONS. Chest X-Ray 06/11/16 06:00 IMPRESSION: NO CHANGE IN APPEARANCE OF THE CHEST Assessment & Plan - Diagnosis (1) Acute hypoxemic respiratory failure Is this a current diagnosis for this admission?: Yes (2) End stage renal disease Is this a current diagnosis for this admission?: Yes (3) Lung abscess Qualifiers: Pulmonary abscess pneumonia presence: with pneumonia Laterality: right Lung location: unspecified part of lung Qualified Code(s): J85.1 - Abscess of lung with pneumonia Is this a current diagnosis for this admission?: No (4) Lung cancer Qualifiers: Laterality: unspecified laterality Lung location: unspecified part of lung Qualified Code(s): C34.90 - Malignant neoplasm of unspecified part of unspecified bronchus or lung Is this a current diagnosis for this admission?: Yes (5) Scleroderma Is this a current diagnosis for this admission?: Yes
--- NOTE | 2016-06-16 17:16 | PDOC PROGRESS REPORT ---
Subjective Progress Note for:: 06/14/16 Subjective:: Extremely lethargic Physical Exam Vital Signs: Temp Pulse Resp BP Pulse Ox 98.2 F 63 18 150/101 H 98 06/16/16 12:00 06/16/16 16:00 06/16/16 16:00 06/16/16 12:00 06/16/16 12:00 Intake & Output 06/15/16 06/16/16 06/17/16 06:59 06:59 06:59 Intake Total 620 640 Output Total 500 400 Balance 120 240 Weight 53 kg 54.2 kg General appearance: PRESENT: disheveled, other - Cachectic Head exam: PRESENT: atraumatic Eye exam: PRESENT: conjunctiva pale Mouth exam: PRESENT: dry mucosa Neck exam: ABSENT: carotid bruit, JVD, lymphadenopathy, thyromegaly Respiratory exam: PRESENT: crackles, decreased breath sounds, prolonged expiratory phas, symmetrical Cardiovascular exam: PRESENT: RRR, +S1, +S2 Pulses: PRESENT: normal radial pulses GI/Abdominal exam: PRESENT: normal bowel sounds, soft. ABSENT: distended, guarding, mass, organolmegaly, rebound, tenderness Rectal exam: PRESENT: deferred Gentrourinary exam: PRESENT: indwelling catheter Musculoskeletal exam: PRESENT: normal inspection Neurological exam: PRESENT: awake Skin exam: PRESENT: dry, warm Results Laboratory Results: 06/16/16 05:50 06/16/16 05:50 06/16/16 06/16/16 05:50 05:50 WBC 11.8 H RBC 2.84 L Hgb 8.1 L Hct 26.3 L MCV 93 MCH 28.3 MCHC 30.6 L RDW 18.3 H Plt Count 211 Seg Neutrophils % 88.1 H Lymphocytes % 7.5 L Monocytes % 3.9 Eosinophils % 0.2 Basophils % 0.3 Absolute Neutrophils 10.4 H Absolute Lymphocytes 0.9 Absolute Monocytes 0.5 Absolute Eosinophils 0.0 Absolute Basophils 0.0 Sodium 140.0 Potassium 3.8 Chloride 102 Carbon Dioxide 27 Anion Gap 11 BUN 23 H Creatinine 3.55 H Est GFR ( Amer) 17 L Est GFR (Non-Af Amer) 14 L Glucose 107 Calcium 7.8 L 05/29/16 05/30/16 05/31/16 23:45 05:55 05:15 Creatine Kinase 31 CK-MB (CK-2) 1.81 1.71 Troponin I 0.069 0.094 05/31/16 05:15 Creatine Kinase CK-MB (CK-2) 1.46 Troponin I 0.079 Impressions: Chest/Abdomen CTA 05/29/16 18:00 IMPRESSION: No evidence for pulmonary embolic disease. Extensive chronic appearing changes as noted above. Small right pleural effusion is again identified which appears slightly larger than on the previous study. The previously described rounded masslike density in the right lower lobe is again identified. There is a central somewhat low density area and the possibility of a necrotic neoplasm or developing lung abscess cannot be excluded. Large pericardial effusion is again identified. Other findings as noted above Modified Barium Swallow 06/11/16 00:00 IMPRESSION: FLASH LARYNGEAL PENETRATION FROM RESIDUALS, WITHOUT ASPIRATION, SEEN WITH PUREED CONSISTENCY.PLEASE SEE SPEECH PATHOLOGIST REPORT FOR OTHER FINDINGS AND RECOMMENDATIONS. Chest X-Ray 06/11/16 06:00 IMPRESSION: NO CHANGE IN APPEARANCE OF THE CHEST Assessment & Plan - Diagnosis (1) Acute hypoxemic respiratory failure Is this a current diagnosis for this admission?: Yes (2) End stage renal disease Is this a current diagnosis for this admission?: Yes (3) Lung abscess Qualifiers: Pulmonary abscess pneumonia presence: with pneumonia Laterality: right Lung location: unspecified part of lung Qualified Code(s): J85.1 - Abscess of lung with pneumonia Is this a current diagnosis for this admission?: No (4) Lung cancer Qualifiers: Laterality: unspecified laterality Lung location: unspecified part of lung Qualified Code(s): C34.90 - Malignant neoplasm of unspecified part of unspecified bronchus or lung Is this a current diagnosis for this admission?: Yes (5) Scleroderma Is this a current diagnosis for this admission?: Yes
--- NOTE | 2016-06-16 17:31 | PDOC PROGRESS REPORT ---
Subjective Progress Note for:: 06/16/16 Subjective:: Patient remains debilitated and frail looking, there is dysphagia probably from scleroderma. Overall condition is poor and she has poor prognosis. She was seen today in the hemodialysis room, she complains of pain of the fingers and toes. She has a vasculopathy with gangrene, consultation was requested from surgery no intervention recommended. Overall prognosis is extremely poor patient may need rehabilitation of physical therapy there is extensive muscular atrophy Physical Exam Vital Signs: Temp Pulse Resp BP Pulse Ox 98.2 F 63 18 150/101 H 98 06/16/16 12:00 06/16/16 16:00 06/16/16 16:00 06/16/16 12:00 06/16/16 12:00 Intake & Output 06/15/16 06/16/16 06/17/16 06:59 06:59 06:59 Intake Total 620 640 Output Total 500 400 Balance 120 240 Weight 53 kg 54.2 kg General appearance: PRESENT: mild distress Eye exam: PRESENT: PERRLA Respiratory exam: PRESENT: crackles Cardiovascular exam: PRESENT: +S1, +S2 GI/Abdominal exam: PRESENT: soft Neurological exam: PRESENT: alert Results Laboratory Results: 06/16/16 05:50 06/16/16 05:50 06/16/16 06/16/16 05:50 05:50 WBC 11.8 H RBC 2.84 L Hgb 8.1 L Hct 26.3 L MCV 93 MCH 28.3 MCHC 30.6 L RDW 18.3 H Plt Count 211 Seg Neutrophils % 88.1 H Lymphocytes % 7.5 L Monocytes % 3.9 Eosinophils % 0.2 Basophils % 0.3 Absolute Neutrophils 10.4 H Absolute Lymphocytes 0.9 Absolute Monocytes 0.5 Absolute Eosinophils 0.0 Absolute Basophils 0.0 Sodium 140.0 Potassium 3.8 Chloride 102 Carbon Dioxide 27 Anion Gap 11 BUN 23 H Creatinine 3.55 H Est GFR ( Amer) 17 L Est GFR (Non-Af Amer) 14 L Glucose 107 Calcium 7.8 L 05/29/16 05/30/16 05/31/16 23:45 05:55 05:15 Creatine Kinase 31 CK-MB (CK-2) 1.81 1.71 Troponin I 0.069 0.094 05/31/16 05:15 Creatine Kinase CK-MB (CK-2) 1.46 Troponin I 0.079 Impressions: Chest/Abdomen CTA 05/29/16 18:00 IMPRESSION: No evidence for pulmonary embolic disease. Extensive chronic appearing changes as noted above. Small right pleural effusion is again identified which appears slightly larger than on the previous study. The previously described rounded masslike density in the right lower lobe is again identified. There is a central somewhat low density area and the possibility of a necrotic neoplasm or developing lung abscess cannot be excluded. Large pericardial effusion is again identified. Other findings as noted above Modified Barium Swallow 06/11/16 00:00 IMPRESSION: FLASH LARYNGEAL PENETRATION FROM RESIDUALS, WITHOUT ASPIRATION, SEEN WITH PUREED CONSISTENCY.PLEASE SEE SPEECH PATHOLOGIST REPORT FOR OTHER FINDINGS AND RECOMMENDATIONS. Chest X-Ray 06/11/16 06:00 IMPRESSION: NO CHANGE IN APPEARANCE OF THE CHEST Assessment & Plan - Diagnosis (1) Acute hypoxemic respiratory failure Is this a current diagnosis for this admission?: Yes (2) Lung cancer Qualifiers: Laterality: unspecified laterality Lung location: unspecified part of lung Qualified Code(s): C34.90 - Malignant neoplasm of unspecified part of unspecified bronchus or lung Is this a current diagnosis for this admission?: Yes (3) Lung abscess Qualifiers: Pulmonary abscess pneumonia presence: with pneumonia Laterality: right Lung location: unspecified part of lung Qualified Code(s): J85.1 - Abscess of lung with pneumonia Is this a current diagnosis for this admission?: No (4) End stage renal disease Is this a current diagnosis for this admission?: Yes (5) Cardiac arrest Is this a current diagnosis for this admission?: Yes (6) Cardiogenic shock Is this a current diagnosis for this admission?: Yes (7) Septic shock Is this a current diagnosis for this admission?: Yes (8) Hypoglycemia Is this a current diagnosis for this admission?: Yes (9) Anorexia Is this a current diagnosis for this admission?: Yes (10) Gangrene of toe Is this a current diagnosis for this admission?: Yes
[2016-06-16] MEDS: VANCOMYCIN HCL 500 MG in DEXTROSE 5%-WATER 100 ML IV SCH (18:51)
--- NOTE | 2016-06-16 20:17 | PDOC PROGRESS REPORT ---
Subjective Progress Note for:: 06/16/16 Subjective:: Patient seen on dialysis. Basically still the same and may have deteriorated some. Seems very debilitated and emaciated. Patient on noninvasive positive pressure ventilation. Patient noted to be intermittently tachycardic. Patient today complained of discomfort in her fingertips which is showing signs of ischemia. Patient has become more emaciated. Physical Exam Vital Signs: Temp Pulse Resp BP Pulse Ox 98.2 F 63 18 150/101 H 98 06/16/16 12:00 06/16/16 16:00 06/16/16 16:00 06/16/16 12:00 06/16/16 12:00 Intake & Output 06/15/16 06/16/16 06/17/16 06:59 06:59 06:59 Intake Total 620 640 320 Output Total 500 400 100 Balance 120 240 220 Weight 53 kg 54.2 kg Exam: GENERAL: Emaciated and cachectic and in no acute distress. Alert and oriented x3 HEAD: Atraumatic, normocephalic. Patient looks very debilitated and somewhat cachectic. EYES: Pupils equal round and reactive to light, extraocular movements intact, sclera anicteric, conjunctiva are normal. ENT: TMs normal, nares patent, oropharynx clear without exudates. Moist mucous membranes. No oral ulcerations or bleeding gums noted NECK: supple without lymphadenopathy. Trachea is central. No cervical or axillary lymphadenopathy noted. Carotids are 2+, JVD WNL LUNGS: Respiration seems nonlabored, no significant accessory muscle action noted. Breath sounds clear to auscultation bilaterally and equal noted. No wheezes rales or rhonchi noted. No significant dullness noted on percussion. CHEST: Palpation of the chest wall shows no significant chest wall tenderness. No other significant abnormalities noted. 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 ABDOMEN: Soft, no significant tenderness appreciated, normoactive bowel sounds. No guarding, no rebound. No rigidity noted . No masses appreciated. EXTREMITIES: Pedal pulses are markedly diminished +, no calf tenderness noted. No clubbing or cyanosis.1+ pedal edema noted. Ulcerations noted on tip toes and also some fingers tips. The mostly dry ulcerations and small. There is wasting of fingers and toes. NEUROLOGICAL: Focused neurological exam showed no significant neurologic deficit. Normal speech, no focal weakness appreciated. Patient has low volume of speech. PSYCH: Normal mood, normal affect. Judgment and insight within normal limits. SKIN: No significant ecchymosis, rash, signs of pruritus noted. Significant to scleroderma changes are noted. MUSCULOSKELETAL EXAM: No significant joint swelling noted. Results Laboratory Results: 06/16/16 05:50 06/16/16 05:50 06/16/16 06/16/16 05:50 05:50 WBC 11.8 H RBC 2.84 L Hgb 8.1 L Hct 26.3 L MCV 93 MCH 28.3 MCHC 30.6 L RDW 18.3 H Plt Count 211 Seg Neutrophils % 88.1 H Lymphocytes % 7.5 L Monocytes % 3.9 Eosinophils % 0.2 Basophils % 0.3 Absolute Neutrophils 10.4 H Absolute Lymphocytes 0.9 Absolute Monocytes 0.5 Absolute Eosinophils 0.0 Absolute Basophils 0.0 Sodium 140.0 Potassium 3.8 Chloride 102 Carbon Dioxide 27 Anion Gap 11 BUN 23 H Creatinine 3.55 H Est GFR ( Amer) 17 L Est GFR (Non-Af Amer) 14 L Glucose 107 Calcium 7.8 L 05/29/16 05/30/16 05/31/16 23:45 05:55 05:15 Creatine Kinase 31 CK-MB (CK-2) 1.81 1.71 Troponin I 0.069 0.094 05/31/16 05:15 Creatine Kinase CK-MB (CK-2) 1.46 Troponin I 0.079 Impressions: Chest/Abdomen CTA 05/29/16 18:00 IMPRESSION: No evidence for pulmonary embolic disease. Extensive chronic appearing changes as noted above. Small right pleural effusion is again identified which appears slightly larger than on the previous study. The previously described rounded masslike density in the right lower lobe is again identified. There is a central somewhat low density area and the possibility of a necrotic neoplasm or developing lung abscess cannot be excluded. Large pericardial effusion is again identified. Other findings as noted above Modified Barium Swallow 06/11/16 00:00 IMPRESSION: FLASH LARYNGEAL PENETRATION FROM RESIDUALS, WITHOUT ASPIRATION, SEEN WITH PUREED CONSISTENCY.PLEASE SEE SPEECH PATHOLOGIST REPORT FOR OTHER FINDINGS AND RECOMMENDATIONS. Chest X-Ray 06/11/16 06:00 IMPRESSION: NO CHANGE IN APPEARANCE OF THE CHEST Assessment & Plan - Diagnosis (1) Acute hypoxemic respiratory failure Is this a current diagnosis for this admission?: Yes (2) End stage renal disease Is this a current diagnosis for this admission?: Yes (3) Lung cancer Qualifiers: Laterality: unspecified laterality Lung location: unspecified part of lung Qualified Code(s): C34.90 - Malignant neoplasm of unspecified part of unspecified bronchus or lung Is this a current diagnosis for this admission?: Yes (4) Septic shock Is this a current diagnosis for this admission?: Yes (5) Pulmonary fibrosis Is this a current diagnosis for this admission?: Yes (6) Scleroderma Is this a current diagnosis for this admission?: Yes (7) Cardiomyopathy Qualifiers: Cardiomyopathy type: unspecified Qualified Code(s): I42.9 - Cardiomyopathy, unspecified Is this a current diagnosis for this admission?: Yes - Notes Notes: Patient remains extremely sick and seems to be deteriorating gradually. Patient has numerous progressive conditions. She is extremely debilitated, seems to have been wasting away. At this point best option may be comfort care but patient family insist on full code. Continue current supportive care. - Time Time with patient: 15-25 minutes - CODE STATUS was discussed, patient remains full code. Surrogate decision-maker unchanged. Multiple medical problems were addressed. Medications reviewed and adjusted accordingly: Yes
[2016-06-17] MEDS: IPRATROPIUM/ALBUTEROL 0.5-2.5 MG/3 ML AMPUL NEB PRN ×3 (00:35→10:05)
[2016-06-17] MEDS ORDERED: HYDROCODONE/ACETAMINOPHEN 5-325 MG TABLET ONE (03:00)
[2016-06-17] MEDS: LORAZEPAM 0.5 MG TABLET PO PRN (03:09)
[2016-06-17] MEDS: DEXTROSE 50%-WATER SYRINGE 25 GM/50 ML DOSE IV PRN ×2 (03:20→23:08)
[2016-06-17] MEDS: DEXTROSE 10%-WATER 1,000 ML IV PRN (05:54)
[2016-06-17] MEDS: HEPARIN SOD (PORCINE) 5,000 UNIT/ML 1 ML SYRINGE SUBCUT SCH ×3 (05:54→23:00)
[2016-06-17] MEDS ORDERED: HYDROCODONE/ACETAMINOPHEN 5-325 MG TABLET PO SCH (06:00)
[2016-06-17 06:26] LABS: ANION GAP 8 (5-19); BLOOD UREA NITROGEN 13 mg/dL (7-20); CALCIUM 7.8 mg/dL (8.4-10.2); CARBON DIOXIDE 29 mmol/L (22-30); CHLORIDE 101 mmol/L (98-107); CREATININE RESULT 2.42 mg/dL (0.52-1.25); GLUCOSE 121 mg/dL (75-110); POTASSIUM 3.4 mmol/L (3.6-5.0); SODIUM 137.6 mmol/L (137-145)
[2016-06-17] MEDS: CARVEDILOL 12.5 MG TABLET PO SCH ×2 (11:08→23:00)
[2016-06-17] MEDS: LISINOPRIL 10 MG TABLET PO SCH ×2 (11:08→22:59)
[2016-06-17] MEDS: HYDROCODONE/ACETAMINOPHEN 5-325 MG TABLET PO PRN ×2 (11:09→15:28)
[2016-06-17] MEDS: DEXTROSE 50%-WATER SYRINGE 12.5 GM/25 ML DOSE IV PRN (11:09)
[2016-06-17] MEDS: MEGESTROL ACETATE SUSP 400 MG/10 ML UDCUP PO SCH (11:12)
--- NOTE | 2016-06-17 15:38 | EKG REPORT ---
SEVERITY:- ABNORMAL ECG - SINUS RHYTHM MULTIFORM VENTRICULAR PREMATURE COMPLEXES INCOMPLETE RBBB AND LAFB CONSIDER RIGHT VENTRICULAR HYPERTROPHY ST ELEVATION, PROBABLE LATERAL INJURY : Confirmed by: Sneha Joyce MD 17-Jun-2016 15:37:02
--- NOTE | 2016-06-17 17:52 | PDOC PROGRESS REPORT ---
Subjective Progress Note for:: 06/17/16 Subjective:: Patient's condition is very poor but she will need to be transferred to long term for rehabilitation, overall prognosis is very poor, she complained of pain in the fingers and the toes, she has gangrenous toes Physical Exam Vital Signs: Temp Pulse Resp BP Pulse Ox 98.0 F 76 20 139/79 H 96 06/17/16 16:00 06/17/16 16:00 06/17/16 16:00 06/17/16 16:00 06/17/16 12:00 Intake & Output 06/16/16 06/17/16 06/18/16 06:59 06:59 06:59 Intake Total 640 670 Output Total 400 1300 Balance 240 -630 Weight 54.2 kg 52.1 kg Eye exam: PRESENT: PERRLA Cardiovascular exam: PRESENT: +S1, +S2 GI/Abdominal exam: PRESENT: soft Rectal exam: PRESENT: deferred Neurological exam: PRESENT: alert. ABSENT: motor sensory deficit Skin exam: PRESENT: dry, intact, warm Results Laboratory Results: 06/16/16 05:50 06/17/16 05:00 06/17/16 05:00 Sodium 137.6 Potassium 3.4 L Chloride 101 Carbon Dioxide 29 Anion Gap 8 BUN 13 Creatinine 2.42 H Est GFR ( Amer) 27 L Est GFR (Non-Af Amer) 22 L Glucose 121 H Calcium 7.8 L 05/29/16 05/30/16 05/31/16 23:45 05:55 05:15 Creatine Kinase 31 CK-MB (CK-2) 1.81 1.71 Troponin I 0.069 0.094 05/31/16 05:15 Creatine Kinase CK-MB (CK-2) 1.46 Troponin I 0.079 Impressions: Chest/Abdomen CTA 05/29/16 18:00 IMPRESSION: No evidence for pulmonary embolic disease. Extensive chronic appearing changes as noted above. Small right pleural effusion is again identified which appears slightly larger than on the previous study. The previously described rounded masslike density in the right lower lobe is again identified. There is a central somewhat low density area and the possibility of a necrotic neoplasm or developing lung abscess cannot be excluded. Large pericardial effusion is again identified. Other findings as noted above Modified Barium Swallow 06/11/16 00:00 IMPRESSION: FLASH LARYNGEAL PENETRATION FROM RESIDUALS, WITHOUT ASPIRATION, SEEN WITH PUREED CONSISTENCY.PLEASE SEE SPEECH PATHOLOGIST REPORT FOR OTHER FINDINGS AND RECOMMENDATIONS. Chest X-Ray 06/11/16 06:00 IMPRESSION: NO CHANGE IN APPEARANCE OF THE CHEST Assessment & Plan - Diagnosis (1) Acute hypoxemic respiratory failure Is this a current diagnosis for this admission?: Yes (2) Lung cancer Qualifiers: Laterality: unspecified laterality Lung location: unspecified part of lung Qualified Code(s): C34.90 - Malignant neoplasm of unspecified part of unspecified bronchus or lung Is this a current diagnosis for this admission?: Yes (3) Lung abscess Qualifiers: Pulmonary abscess pneumonia presence: with pneumonia Laterality: right Lung location: unspecified part of lung Qualified Code(s): J85.1 - Abscess of lung with pneumonia Is this a current diagnosis for this admission?: No (4) End stage renal disease Is this a current diagnosis for this admission?: Yes (5) Cardiac arrest Is this a current diagnosis for this admission?: Yes (6) Cardiogenic shock Is this a current diagnosis for this admission?: Yes (7) Septic shock Is this a current diagnosis for this admission?: Yes (8) Hypoglycemia Is this a current diagnosis for this admission?: Yes (9) Anorexia Is this a current diagnosis for this admission?: Yes (10) Gangrene of toe Is this a current diagnosis for this admission?: Yes
--- NOTE | 2016-06-17 20:49 | PDOC PROGRESS REPORT ---
Subjective Progress Note for:: 06/17/16 Subjective:: Patient seen on dialysis. Basically still the same and may have deteriorated some. Seems very debilitated and emaciated. Patient on noninvasive positive pressure ventilation. Patient noted to be intermittently tachycardic. Patient today complained of discomfort in her fingertips which is showing signs of ischemia. Patient has become more emaciated. No significant change in patient condition. She was noted to be on bronchodilator therapy today. Physical Exam Vital Signs: Temp Pulse Resp BP Pulse Ox 98.0 F 76 20 139/79 H 96 06/17/16 16:00 06/17/16 16:00 06/17/16 16:00 06/17/16 16:00 06/17/16 12:00 Intake & Output 06/16/16 06/17/16 06/18/16 06:59 06:59 06:59 Intake Total 640 670 300 Output Total 400 1300 250 Balance 240 -630 50 Weight 54.2 kg 52.1 kg Exam: GENERAL: Emaciated and cachectic and in no acute distress. Alert and oriented x3 HEAD: Atraumatic, normocephalic. Patient looks very debilitated and somewhat cachectic. EYES: Pupils equal round and reactive to light, extraocular movements intact, sclera anicteric, conjunctiva are normal. ENT: TMs normal, nares patent, oropharynx clear without exudates. Moist mucous membranes. No oral ulcerations or bleeding gums noted NECK: supple without lymphadenopathy. Trachea is central. No cervical or axillary lymphadenopathy noted. Carotids are 2+, JVD WNL LUNGS: Respiration seems nonlabored, no significant accessory muscle action noted. Breath sounds clear to auscultation bilaterally and equal noted. No wheezes rales or rhonchi noted. No significant dullness noted on percussion. CHEST: Palpation of the chest wall shows no significant chest wall tenderness. No other significant abnormalities noted. 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 ABDOMEN: Soft, no significant tenderness appreciated, normoactive bowel sounds. No guarding, no rebound. No rigidity noted . No masses appreciated. EXTREMITIES: Pedal pulses are markedly diminished +, no calf tenderness noted. No clubbing or cyanosis.1+ pedal edema noted. Ulcerations noted on tip toes and also some fingers tips. The mostly dry ulcerations and small. There is wasting of fingers and toes. In addition patient noted to have dry gangrene of fingertips of her left hand. NEUROLOGICAL: Focused neurological exam showed no significant neurologic deficit. Normal speech, no focal weakness appreciated. Patient has low volume of speech. PSYCH: Normal mood, normal affect. Judgment and insight within normal limits. SKIN: No significant ecchymosis, rash, signs of pruritus noted. Significant to scleroderma changes are noted. MUSCULOSKELETAL EXAM: No significant joint swelling noted. Results Laboratory Results: 06/16/16 05:50 06/17/16 05:00 06/17/16 05:00 Sodium 137.6 Potassium 3.4 L Chloride 101 Carbon Dioxide 29 Anion Gap 8 BUN 13 Creatinine 2.42 H Est GFR ( Amer) 27 L Est GFR (Non-Af Amer) 22 L Glucose 121 H Calcium 7.8 L 05/29/16 05/30/16 05/31/16 23:45 05:55 05:15 Creatine Kinase 31 CK-MB (CK-2) 1.81 1.71 Troponin I 0.069 0.094 05/31/16 05:15 Creatine Kinase CK-MB (CK-2) 1.46 Troponin I 0.079 Impressions: Chest/Abdomen CTA 05/29/16 18:00 IMPRESSION: No evidence for pulmonary embolic disease. Extensive chronic appearing changes as noted above. Small right pleural effusion is again identified which appears slightly larger than on the previous study. The previously described rounded masslike density in the right lower lobe is again identified. There is a central somewhat low density area and the possibility of a necrotic neoplasm or developing lung abscess cannot be excluded. Large pericardial effusion is again identified. Other findings as noted above Modified Barium Swallow 06/11/16 00:00 IMPRESSION: FLASH LARYNGEAL PENETRATION FROM RESIDUALS, WITHOUT ASPIRATION, SEEN WITH PUREED CONSISTENCY.PLEASE SEE SPEECH PATHOLOGIST REPORT FOR OTHER FINDINGS AND RECOMMENDATIONS. Chest X-Ray 06/11/16 06:00 IMPRESSION: NO CHANGE IN APPEARANCE OF THE CHEST Assessment & Plan - Diagnosis (1) Acute hypoxemic respiratory failure Is this a current diagnosis for this admission?: Yes (2) End stage renal disease Is this a current diagnosis for this admission?: Yes (3) Lung cancer Qualifiers: Laterality: unspecified laterality Lung location: unspecified part of lung Qualified Code(s): C34.90 - Malignant neoplasm of unspecified part of unspecified bronchus or lung Is this a current diagnosis for this admission?: Yes (4) Septic shock Is this a current diagnosis for this admission?: Yes (5) Pulmonary fibrosis Is this a current diagnosis for this admission?: Yes (6) Scleroderma Is this a current diagnosis for this admission?: Yes (7) Cardiomyopathy Qualifiers: Cardiomyopathy type: unspecified Qualified Code(s): I42.9 - Cardiomyopathy, unspecified Is this a current diagnosis for this admission?: Yes - Notes Notes: Patient gradually deteriorating. She has now dry gangrene of some of the fingertips and some of the toes. Overall no intervention would help at this point because of severe scleroderma. Patient continues on dialysis. Lung cancer: No chemotherapy being planned. Pulmonary fibrosis: No good treatment option here. Cardiomyopathy: Currently stable. Will discuss with primary care M.D. as regards chronic anti-coagulation. However overall prognosis is poor. - Time Time with patient: 15-25 minutes Medications reviewed and adjusted accordingly: Yes
[2016-06-17] MEDS: OXYCODONE HCL IR 5 MG TABLET PO PRN (23:00)
[2016-06-18] MEDS: HEPARIN SOD (PORCINE) 5,000 UNIT/ML 1 ML SYRINGE SUBCUT SCH ×3 (05:07→20:34)
[2016-06-18] MEDS: DEXTROSE 50%-WATER SYRINGE 25 GM/50 ML DOSE IV PRN (05:18)
[2016-06-18 05:47] LABS: ABSOLUTE EOSINOPHILS # (AUTO) 0.5 10^3/uL (0.0-0.6); ABSOLUTE LYMPHOCYTES (AUTO) 1.4 10^3/uL (0.5-4.7); ABSOLUTE MONOCYTES (AUTO) 0.8 10^3/uL (0.1-1.4); ABSOLUTE NEUT (AUTO) 9.2 10^3/uL (1.7-8.2); BASOPHILS % (AUTO) 0.4 % (0-2); HEMATOCRIT 26.2 % (36.0-47.0); HGB HCT DIFFERENCE -2.2; LYMPHOCYTES % (AUTO) 11.9 % (13-45); MEAN CORPUSCULAR HEMOGLOBIN 28.6 pg (27.0-33.4); MEAN CORPUSCULAR HGB CONC 30.6 g/dL (32.0-36.0); MEAN CORPUSCULAR VOLUME 94 fl (80-97); MONOCYTES % (AUTO) 6.8 % (3-13); RED CELL DISTRIBUTION WIDTH 19.3 % (11.5-14.0); SEGMENTED NEUTROPHILS % (AUTO) 76.9 % (42-78)
[2016-06-18 06:01] LABS: ANION GAP 6 (5-19); BLOOD UREA NITROGEN 17 mg/dL (7-20); CALCIUM 7.7 mg/dL (8.4-10.2); CARBON DIOXIDE 30 mmol/L (22-30); CHLORIDE 100 mmol/L (98-107); CREATININE RESULT 3.14 mg/dL (0.52-1.25); GLUCOSE 77 mg/dL (75-110); POTASSIUM 3.5 mmol/L (3.6-5.0); SODIUM 136.4 mmol/L (137-145)
[2016-06-18] MEDS: OXYCODONE HCL IR 5 MG TABLET PO PRN ×2 (08:02→14:02)
[2016-06-18] MEDS: IPRATROPIUM/ALBUTEROL 0.5-2.5 MG/3 ML AMPUL NEB PRN ×2 (09:09→12:12)
[2016-06-18] MEDS: LISINOPRIL 10 MG TABLET PO SCH ×2 (10:37→20:35)
[2016-06-18] MEDS: CARVEDILOL 12.5 MG TABLET PO SCH ×2 (10:37→20:35)
--- NOTE | 2016-06-18 10:37 | PDOC PROGRESS REPORT ---
Subjective Progress Note for:: 06/18/16 Subjective:: Patient seen today on morning rounds Basically still the same and may have deteriorated some. Seems very debilitated and emaciated. Patient getting bronchodilator therapy. Patient noted to be intermittently tachycardic and tachypneic. Patient noted to have signs of dry gangrene on fingertips, medial 3 fingers and also on one of the toe on the left foot. Patient has become more emaciated. No other significant change in patient condition. Patient just seems to be wasting away. Physical Exam Vital Signs: Temp Pulse Resp BP Pulse Ox 97.5 F 74 18 149/103 H 100 06/18/16 08:00 06/18/16 09:13 06/18/16 09:13 06/18/16 08:00 06/18/16 09:13 Intake & Output 06/17/16 06/18/16 06/19/16 06:59 06:59 06:59 Intake Total 670 660 Output Total 1300 250 Balance -630 410 Weight 52.1 kg 51.9 kg Exam: GENERAL: Emaciated and cachectic and in no acute distress. Alert and oriented x3 HEAD: Atraumatic, normocephalic. Patient looks very debilitated and somewhat cachectic. EYES: Pupils equal round and reactive to light, extraocular movements intact, sclera anicteric, conjunctiva are normal. ENT: TMs normal, nares patent, oropharynx clear without exudates. Moist mucous membranes. No oral ulcerations or bleeding gums noted NECK: supple without lymphadenopathy. Trachea is central. No cervical or axillary lymphadenopathy noted. Carotids are 2+, JVD WNL LUNGS: Respiration seems nonlabored, no significant accessory muscle action noted. Breath sounds clear to auscultation bilaterally and equal noted. No wheezes rales or rhonchi noted. No significant dullness noted on percussion. CHEST: Palpation of the chest wall shows no significant chest wall tenderness. No other significant abnormalities noted. 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 ABDOMEN: Soft, no significant tenderness appreciated, normoactive bowel sounds. No guarding, no rebound. No rigidity noted . No masses appreciated. EXTREMITIES: Pedal pulses are markedly diminished +, no calf tenderness noted. No clubbing or cyanosis.1+ pedal edema noted. Ulcerations noted on tip toes and also some fingers tips. The mostly dry ulcerations and small. There is wasting of fingers and toes. In addition patient noted to have dry gangrene of medial 3 fingertips of her left hand. In addition she has dry gangrene of one of the toes on her left foot. NEUROLOGICAL: Focused neurological exam showed no significant neurologic deficit. Normal speech, generalized weakness appreciated. Patient has low volume of speech. PSYCH: Mood is possibly depressed. Judgment and insight within normal limits. SKIN: No significant ecchymosis, rash, signs of pruritus noted. Significant to scleroderma changes are noted. As noted findings under extremity exam MUSCULOSKELETAL EXAM: No significant joint swelling noted. Patient has marked generalized weakness and wasting of muscles. Results Laboratory Results: 06/18/16 05:15 06/18/16 05:15 06/18/16 06/18/16 05:15 05:15 WBC 12.0 H RBC 2.80 L Hgb 8.0 L Hct 26.2 L MCV 94 MCH 28.6 MCHC 30.6 L RDW 19.3 H Plt Count 193 Seg Neutrophils % 76.9 Lymphocytes % 11.9 L Monocytes % 6.8 Eosinophils % 4.0 Basophils % 0.4 Absolute Neutrophils 9.2 H Absolute Lymphocytes 1.4 Absolute Monocytes 0.8 Absolute Eosinophils 0.5 Absolute Basophils 0.0 Sodium 136.4 L Potassium 3.5 L Chloride 100 Carbon Dioxide 30 Anion Gap 6 BUN 17 Creatinine 3.14 H Est GFR ( Amer) 20 L Est GFR (Non-Af Amer) 16 L Glucose 77 Calcium 7.7 L 05/29/16 05/30/16 05/31/16 23:45 05:55 05:15 Creatine Kinase 31 CK-MB (CK-2) 1.81 1.71 Troponin I 0.069 0.094 05/31/16 05:15 Creatine Kinase CK-MB (CK-2) 1.46 Troponin I 0.079 Impressions: Chest/Abdomen CTA 05/29/16 18:00 IMPRESSION: No evidence for pulmonary embolic disease. Extensive chronic appearing changes as noted above. Small right pleural effusion is again identified which appears slightly larger than on the previous study. The previously described rounded masslike density in the right lower lobe is again identified. There is a central somewhat low density area and the possibility of a necrotic neoplasm or developing lung abscess cannot be excluded. Large pericardial effusion is again identified. Other findings as noted above Modified Barium Swallow 06/11/16 00:00 IMPRESSION: FLASH LARYNGEAL PENETRATION FROM RESIDUALS, WITHOUT ASPIRATION, SEEN WITH PUREED CONSISTENCY.PLEASE SEE SPEECH PATHOLOGIST REPORT FOR OTHER FINDINGS AND RECOMMENDATIONS. Chest X-Ray 06/11/16 06:00 IMPRESSION: NO CHANGE IN APPEARANCE OF THE CHEST Assessment & Plan - Diagnosis (1) Acute hypoxemic respiratory failure Is this a current diagnosis for this admission?: Yes (2) End stage renal disease Is this a current diagnosis for this admission?: Yes (3) Lung cancer Qualifiers: Laterality: unspecified laterality Lung location: unspecified part of lung Qualified Code(s): C34.90 - Malignant neoplasm of unspecified part of unspecified bronchus or lung Is this a current diagnosis for this admission?: Yes (4) Septic shock Is this a current diagnosis for this admission?: Yes (5) Pulmonary fibrosis Is this a current diagnosis for this admission?: Yes (6) Scleroderma Is this a current diagnosis for this admission?: Yes (7) Cardiomyopathy Qualifiers: Cardiomyopathy type: unspecified Qualified Code(s): I42.9 - Cardiomyopathy, unspecified Is this a current diagnosis for this admission?: Yes - Notes Notes: Not much has changed since yesterday but now greatest slow gradual deterioration. Patient has irreversible disease in scleroderma and pulmonary fibrosis. She is now having dry gangrene of the fingertips because of small vessel disease. Discussed overall prognosis being poor. Currently patient still a full code. Chronic anti-coagulation may be a consideration, will discuss with primary care M.D. Overall prognosis poor. Dr. Joyce to see patient from tomorrow. No medication changes performed today. - Time Time with patient: 15-25 minutes - Discussed with patient's mother was at bedside today.
[2016-06-18] MEDS: DEXTROSE 50%-WATER SYRINGE 12.5 GM/25 ML DOSE IV PRN ×2 (10:38→18:14)
[2016-06-18] MEDS: MEGESTROL ACETATE SUSP 400 MG/10 ML UDCUP PO SCH (10:38)
[2016-06-18] MEDS: LORAZEPAM 0.5 MG TABLET PO PRN (11:15)
--- NOTE | 2016-06-18 15:16 | PDOC PROGRESS REPORT ---
Subjective Progress Note for:: 06/17/16 Subjective:: Extremely lethargic Physical Exam Vital Signs: Temp Pulse Resp BP Pulse Ox 97.4 F 96 18 149/122 H 96 06/17/16 12:00 06/17/16 12:00 06/17/16 12:00 06/17/16 12:00 06/17/16 12:00 Intake & Output 06/16/16 06/17/16 06/18/16 06:59 06:59 06:59 Intake Total 640 670 Output Total 400 1300 Balance 240 -630 Weight 54.2 kg 52.1 kg General appearance: PRESENT: no acute distress, cooperative, other - Cachectic Head exam: PRESENT: atraumatic, normocephalic Eye exam: PRESENT: conjunctiva pale, EOMI Ear exam: PRESENT: normal external ear exam Mouth exam: PRESENT: dry mucosa, neck supple Neck exam: ABSENT: carotid bruit, JVD, lymphadenopathy, thyromegaly Respiratory exam: PRESENT: decreased breath sounds, prolonged expiratory phas, rales, rhonchi, symmetrical Cardiovascular exam: PRESENT: RRR, +S1, +S2 Pulses: PRESENT: normal radial pulses Vascular exam: PRESENT: normal capillary refill GI/Abdominal exam: PRESENT: normal bowel sounds, soft. ABSENT: distended, guarding, mass, organolmegaly, rebound, tenderness Rectal exam: PRESENT: deferred Gentrourinary exam: PRESENT: indwelling catheter Extremities exam: PRESENT: other - Ischemic digits on hands and feet. ABSENT: calf tenderness, clubbing, pedal edema Neurological exam: PRESENT: awake Psychiatric exam: ABSENT: homicidal ideation, suicidal ideation Skin exam: PRESENT: dry, pallor Results Laboratory Results: 06/16/16 05:50 06/17/16 05:00 06/17/16 05:00 Sodium 137.6 Potassium 3.4 L Chloride 101 Carbon Dioxide 29 Anion Gap 8 BUN 13 Creatinine 2.42 H Est GFR ( Amer) 27 L Est GFR (Non-Af Amer) 22 L Glucose 121 H Calcium 7.8 L 05/29/16 05/30/16 05/31/16 23:45 05:55 05:15 Creatine Kinase 31 CK-MB (CK-2) 1.81 1.71 Troponin I 0.069 0.094 05/31/16 05:15 Creatine Kinase CK-MB (CK-2) 1.46 Troponin I 0.079 Impressions: Chest/Abdomen CTA 05/29/16 18:00 IMPRESSION: No evidence for pulmonary embolic disease. Extensive chronic appearing changes as noted above. Small right pleural effusion is again identified which appears slightly larger than on the previous study. The previously described rounded masslike density in the right lower lobe is again identified. There is a central somewhat low density area and the possibility of a necrotic neoplasm or developing lung abscess cannot be excluded. Large pericardial effusion is again identified. Other findings as noted above Modified Barium Swallow 06/11/16 00:00 IMPRESSION: FLASH LARYNGEAL PENETRATION FROM RESIDUALS, WITHOUT ASPIRATION, SEEN WITH PUREED CONSISTENCY.PLEASE SEE SPEECH PATHOLOGIST REPORT FOR OTHER FINDINGS AND RECOMMENDATIONS. Chest X-Ray 06/11/16 06:00 IMPRESSION: NO CHANGE IN APPEARANCE OF THE CHEST Assessment & Plan - Diagnosis (1) Acute hypoxemic respiratory failure Is this a current diagnosis for this admission?: Yes (2) End stage renal disease Is this a current diagnosis for this admission?: Yes (3) Lung abscess Qualifiers: Pulmonary abscess pneumonia presence: with pneumonia Laterality: right Lung location: unspecified part of lung Qualified Code(s): J85.1 - Abscess of lung with pneumonia Is this a current diagnosis for this admission?: No (4) Lung cancer Qualifiers: Laterality: unspecified laterality Lung location: unspecified part of lung Qualified Code(s): C34.90 - Malignant neoplasm of unspecified part of unspecified bronchus or lung Is this a current diagnosis for this admission?: Yes (5) Scleroderma Is this a current diagnosis for this admission?: Yes - Time Time Spent with patient: 35 or more minutes
--- NOTE | 2016-06-18 15:18 | PDOC PROGRESS REPORT ---
Subjective Progress Note for:: 06/18/16 Subjective:: Weak awake and alert very interactive talks for 35 minutes Physical Exam Vital Signs: Temp Pulse Resp BP Pulse Ox 97.5 F 74 18 149/103 H 100 06/18/16 08:00 06/18/16 09:13 06/18/16 09:13 06/18/16 08:00 06/18/16 09:13 Intake & Output 06/17/16 06/18/16 06/19/16 06:59 06:59 06:59 Intake Total 670 660 Output Total 1300 250 Balance -630 410 Weight 52.1 kg 51.9 kg General appearance: PRESENT: no acute distress, cooperative, disheveled, other - Cachectic Head exam: PRESENT: atraumatic, normocephalic Eye exam: PRESENT: conjunctiva pale, EOMI Neck exam: ABSENT: carotid bruit, JVD, lymphadenopathy, thyromegaly Respiratory exam: PRESENT: decreased breath sounds, prolonged expiratory phas, rales, rhonchi, symmetrical, unlabored Cardiovascular exam: PRESENT: irregular rhythm Pulses: PRESENT: normal radial pulses GI/Abdominal exam: PRESENT: normal bowel sounds, soft. ABSENT: distended, guarding, mass, organolmegaly, rebound, tenderness Rectal exam: PRESENT: deferred Extremities exam: PRESENT: other - Multiple areas of ischemia left toes and fingers Neurological exam: PRESENT: alert, awake Psychiatric exam: PRESENT: normal mood Skin exam: PRESENT: dry, pallor Results Laboratory Results: 06/18/16 05:15 06/18/16 05:15 06/18/16 06/18/16 05:15 05:15 WBC 12.0 H RBC 2.80 L Hgb 8.0 L Hct 26.2 L MCV 94 MCH 28.6 MCHC 30.6 L RDW 19.3 H Plt Count 193 Seg Neutrophils % 76.9 Lymphocytes % 11.9 L Monocytes % 6.8 Eosinophils % 4.0 Basophils % 0.4 Absolute Neutrophils 9.2 H Absolute Lymphocytes 1.4 Absolute Monocytes 0.8 Absolute Eosinophils 0.5 Absolute Basophils 0.0 Sodium 136.4 L Potassium 3.5 L Chloride 100 Carbon Dioxide 30 Anion Gap 6 BUN 17 Creatinine 3.14 H Est GFR ( Amer) 20 L Est GFR (Non-Af Amer) 16 L Glucose 77 Calcium 7.7 L 0305/30/16 05/31/16 23:45 05:55 05:15 Creatine Kinase 31 CK-MB (CK-2) 1.81 1.71 Troponin I 0.069 0.094 05/31/16 05:15 Creatine Kinase CK-MB (CK-2) 1.46 Troponin I 0.079 Impressions: Chest/Abdomen CTA 05/29/16 18:00 IMPRESSION: No evidence for pulmonary embolic disease. Extensive chronic appearing changes as noted above. Small right pleural effusion is again identified which appears slightly larger than on the previous study. The previously described rounded masslike density in the right lower lobe is again identified. There is a central somewhat low density area and the possibility of a necrotic neoplasm or developing lung abscess cannot be excluded. Large pericardial effusion is again identified. Other findings as noted above Modified Barium Swallow 06/11/16 00:00 IMPRESSION: FLASH LARYNGEAL PENETRATION FROM RESIDUALS, WITHOUT ASPIRATION, SEEN WITH PUREED CONSISTENCY.PLEASE SEE SPEECH PATHOLOGIST REPORT FOR OTHER FINDINGS AND RECOMMENDATIONS. Chest X-Ray 06/11/16 06:00 IMPRESSION: NO CHANGE IN APPEARANCE OF THE CHEST Assessment & Plan - Diagnosis (1) Acute hypoxemic respiratory failure Is this a current diagnosis for this admission?: Yes (2) End stage renal disease Is this a current diagnosis for this admission?: Yes (3) Lung abscess Qualifiers: Pulmonary abscess pneumonia presence: with pneumonia Laterality: right Lung location: unspecified part of lung Qualified Code(s): J85.1 - Abscess of lung with pneumonia Is this a current diagnosis for this admission?: No (4) Lung cancer Qualifiers: Laterality: unspecified laterality Lung location: unspecified part of lung Qualified Code(s): C34.90 - Malignant neoplasm of unspecified part of unspecified bronchus or lung Is this a current diagnosis for this admission?: Yes (5) Scleroderma Is this a current diagnosis for this admission?: Yes - Time Time Spent with patient: 35 or more minutes - 50 minutes
[2016-06-18] MEDS ORDERED: HEPARIN SOD (PORCINE) 1,000 UNIT/ML 10 ML VIAL IV PRN (15:23)
[2016-06-18] MEDS ORDERED: EPOETIN ALFA INJ 20000 UNIT/1 ML VIAL (RENAL) IV PRN (15:24)
[2016-06-18] MEDS: EPOETIN ALFA INJ 20000 UNIT/1 ML VIAL (RENAL) IV PRN (16:14)
--- NOTE | 2016-06-18 18:30 | PDOC PROGRESS REPORT ---
Subjective Progress Note for:: 06/18/16 Subjective:: Ration is seen on hemodialysis today. She looks extremely weak and cachectic. She looks very moribund. She is still not able to eat hardly anything. She is hardly able to just because of loss sore throat. Undergoing dialysis without any difficulties and plan to remove it in 502,000 mL as tolerated. Orders were discussed with the treating nurse Marie. Physical Exam Vital Signs: Temp Pulse Resp BP Pulse Ox 97.5 F 97 22 H 150/94 H 96 06/18/16 12:00 06/18/16 14:00 06/18/16 12:14 06/18/16 12:00 06/18/16 12:14 Intake & Output 06/17/16 06/18/16 06/19/16 06:59 06:59 06:59 Intake Total 670 660 100 Output Total 1300 250 500 Balance -630 410 -400 Weight 52.1 kg 51.9 kg General appearance: PRESENT: mild distress, thin - And cachectic Respiratory exam: PRESENT: clear to auscultation frankie, crackles. ABSENT: rhonchi Cardiovascular exam: PRESENT: +S1, +S2, systolic murmur GI/Abdominal exam: PRESENT: normal bowel sounds, soft. ABSENT: distended, firm , tenderness Extremities exam: PRESENT: pedal edema Neurological exam: PRESENT: awake, oriented to person, oriented to place. ABSENT: oriented to time Skin exam: ABSENT: cyanosis, erythema, mottled Results Laboratory Results: 06/18/16 05:15 06/18/16 05:15 06/18/16 06/18/16 05:15 05:15 WBC 12.0 H RBC 2.80 L Hgb 8.0 L Hct 26.2 L MCV 94 MCH 28.6 MCHC 30.6 L RDW 19.3 H Plt Count 193 Seg Neutrophils % 76.9 Lymphocytes % 11.9 L Monocytes % 6.8 Eosinophils % 4.0 Basophils % 0.4 Absolute Neutrophils 9.2 H Absolute Lymphocytes 1.4 Absolute Monocytes 0.8 Absolute Eosinophils 0.5 Absolute Basophils 0.0 Sodium 136.4 L Potassium 3.5 L Chloride 100 Carbon Dioxide 30 Anion Gap 6 BUN 17 Creatinine 3.14 H Est GFR ( Amer) 20 L Est GFR (Non-Af Amer) 16 L Glucose 77 Calcium 7.7 L 05/29/16 05/30/1605/31/17 23:45 05:55 05:15 Creatine Kinase 31 CK-MB (CK-2) 1.81 1.71 Troponin I 0.069 0.094 05/31/16 05:15 Creatine Kinase CK-MB (CK-2) 1.46 Troponin I 0.079 Impressions: Chest/Abdomen CTA 05/29/16 18:00 IMPRESSION: No evidence for pulmonary embolic disease. Extensive chronic appearing changes as noted above. Small right pleural effusion is again identified which appears slightly larger than on the previous study. The previously described rounded masslike density in the right lower lobe is again identified. There is a central somewhat low density area and the possibility of a necrotic neoplasm or developing lung abscess cannot be excluded. Large pericardial effusion is again identified. Other findings as noted above Modified Barium Swallow 06/11/16 00:00 IMPRESSION: FLASH LARYNGEAL PENETRATION FROM RESIDUALS, WITHOUT ASPIRATION, SEEN WITH PUREED CONSISTENCY.PLEASE SEE SPEECH PATHOLOGIST REPORT FOR OTHER FINDINGS AND RECOMMENDATIONS. Chest X-Ray 06/11/16 06:00 IMPRESSION: NO CHANGE IN APPEARANCE OF THE CHEST Assessment & Plan - Diagnosis (1) Acute hypoxemic respiratory failure Is this a current diagnosis for this admission?: Yes (2) End stage renal disease Is this a current diagnosis for this admission?: YesPlan: Patient undergoing dialysis. We will plan to remove at least 1 L of fluid as tolerated. Orders were discussed with the treating nurse. (3) Lung abscess Qualifiers: Pulmonary abscess pneumonia presence: with pneumonia Laterality: right Lung location: unspecified part of lung Qualified Code(s): J85.1 - Abscess of lung with pneumonia Is this a current diagnosis for this admission?: NoPlan: Patient has recovered from septic shock. Patient on antibiotics. (4) Lung cancer Qualifiers: Laterality: unspecified laterality Lung location: unspecified part of lung Qualified Code(s): C34.90 - Malignant neoplasm of unspecified part of unspecified bronchus or lung Is this a current diagnosis for this admission?: YesPlan: Has been seen at [facility] multiple times , but has had no definitive treatments done given the very poor prognosis and very poor serious comorbidities. (5) Septic shock Is this a current diagnosis for this admission?: Yes (7) Pulmonary fibrosis Is this a current diagnosis for this admission?: Yes (8) Scleroderma Is this a current diagnosis for this admission?: YesPlan: With severe comorbidities and complications of the disease. (9) Anemia Plan: Monitor. Adjust low-dose erythropoietin. (10) Cardiomyopathy Qualifiers: Cardiomyopathy type: unspecified Qualified Code(s): I42.9 - Cardiomyopathy, unspecified Is this a current diagnosis for this admission?: YesPlan: LV ejection fraction less than 15%. Very poor prognosis. 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 Unfortunate situation at this point. It's unfortunate that the family has deemed her a full code and has not opted to get comfort care or hospice involved.
--- NOTE | 2016-06-18 20:18 | PDOC PROGRESS REPORT ---
Subjective Progress Note for:: 06/18/16 Subjective:: She has persistent hypoglycemia on she is requiring intravenous 10% dextrose continuously, she is not able to swallow due to esophageal disease from scleroderma, I discussed with family today about alternative nutrition i.e. PEG tube, she needs to be discharged to rehabilitation but with continuous 10% dextrose no facility will accept her. It is very unfortunate for this patient, she is a very pleasant lady but with a very bad disease processes overall prognosis is extremely poor. Physical Exam Vital Signs: Temp Pulse Resp BP Pulse Ox 97.5 F 97 22 H 150/94 H 96 06/18/16 12:00 06/18/16 14:00 06/18/16 12:14 06/18/16 12:00 06/18/16 12:14 Intake & Output 06/17/16 06/18/16 06/19/16 06:59 06:59 06:59 Intake Total 670 660 100 Output Total 1300 250 500 Balance -630 410 -400 Weight 52.1 kg 51.9 kg General appearance: PRESENT: severe distress Eye exam: PRESENT: PERRLA Respiratory exam: PRESENT: crackles, tachypnea Cardiovascular exam: PRESENT: +S1, +S2 GI/Abdominal exam: PRESENT: soft Results Laboratory Results: 06/18/16 05:15 06/18/16 05:15 06/18/16 06/18/16 05:15 05:15 WBC 12.0 H RBC 2.80 L Hgb 8.0 L Hct 26.2 L MCV 94 MCH 28.6 MCHC 30.6 L RDW 19.3 H Plt Count 193 Seg Neutrophils % 76.9 Lymphocytes % 11.9 L Monocytes % 6.8 Eosinophils % 4.0 Basophils % 0.4 Absolute Neutrophils 9.2 H Absolute Lymphocytes 1.4 Absolute Monocytes 0.8 Absolute Eosinophils 0.5 Absolute Basophils 0.0 Sodium 136.4 L Potassium 3.5 L Chloride 100 Carbon Dioxide 30 Anion Gap 6 BUN 17 Creatinine 3.14 H Est GFR ( Amer) 20 L Est GFR (Non-Af Amer) 16 L Glucose 77 Calcium 7.7 L 05/29/16 05/30/16 05/31/16 23:45 05:55 05:15 Creatine Kinase 31 CK-MB (CK-2) 1.81 1.71 Troponin I 0.069 0.094 05/31/16 05:15 Creatine Kinase CK-MB (CK-2) 1.46 Troponin I 0.079 Impressions: Chest/Abdomen CTA 05/29/16 18:00 IMPRESSION: No evidence for pulmonary embolic disease. Extensive chronic appearing changes as noted above. Small right pleural effusion is again identified which appears slightly larger than on the previous study. The previously described rounded masslike density in the right lower lobe is again identified. There is a central somewhat low density area and the possibility of a necrotic neoplasm or developing lung abscess cannot be excluded. Large pericardial effusion is again identified. Other findings as noted above Modified Barium Swallow 06/11/16 00:00 IMPRESSION: FLASH LARYNGEAL PENETRATION FROM RESIDUALS, WITHOUT ASPIRATION, SEEN WITH PUREED CONSISTENCY.PLEASE SEE SPEECH PATHOLOGIST REPORT FOR OTHER FINDINGS AND RECOMMENDATIONS. Chest X-Ray 06/11/16 06:00 IMPRESSION: NO CHANGE IN APPEARANCE OF THE CHEST Assessment & Plan - Diagnosis (1) Acute hypoxemic respiratory failure Is this a current diagnosis for this admission?: Yes (2) Lung cancer Qualifiers: Laterality: unspecified laterality Lung location: unspecified part of lung Qualified Code(s): C34.90 - Malignant neoplasm of unspecified part of unspecified bronchus or lung Is this a current diagnosis for this admission?: Yes (3) Lung abscess Qualifiers: Pulmonary abscess pneumonia presence: with pneumonia Laterality: right Lung location: unspecified part of lung Qualified Code(s): J85.1 - Abscess of lung with pneumonia Is this a current diagnosis for this admission?: No (4) End stage renal disease Is this a current diagnosis for this admission?: Yes (5) Cardiac arrest Is this a current diagnosis for this admission?: Yes (6) Cardiogenic shock Is this a current diagnosis for this admission?: Yes (7) Septic shock Is this a current diagnosis for this admission?: Yes (8) Hypoglycemia Is this a current diagnosis for this admission?: Yes (9) Anorexia Is this a current diagnosis for this admission?: Yes (10) Gangrene of toe Is this a current diagnosis for this admission?: Yes - Plan Summary Plan Summary: Consultation is requested from GI for PEG tube placement
[2016-06-18] MEDS: HYDROCODONE/ACETAMINOPHEN 5-325 MG TABLET PO PRN (20:35)
[2016-06-19] MEDS: DEXTROSE 10%-WATER 1,000 ML IV PRN (06:01)
[2016-06-19] MEDS: HEPARIN SOD (PORCINE) 5,000 UNIT/ML 1 ML SYRINGE SUBCUT SCH ×3 (06:01→21:19)
[2016-06-19 07:04] LABS: ANION GAP 7 (5-19); BLOOD UREA NITROGEN 9 mg/dL (7-20); CARBON DIOXIDE 26 mmol/L (22-30); CHLORIDE 104 mmol/L (98-107); CREATININE RESULT 2.15 mg/dL (0.52-1.25); GLUCOSE 70 mg/dL (75-110); POTASSIUM 3.1 mmol/L (3.6-5.0); SODIUM 136.8 mmol/L (137-145)
[2016-06-19 07:14] LABS: CALCIUM 6.7 mg/dL (8.4-10.2)
[2016-06-19] MEDS: CARVEDILOL 12.5 MG TABLET PO SCH ×2 (10:22→21:18)
[2016-06-19] MEDS: MEGESTROL ACETATE SUSP 400 MG/10 ML UDCUP PO SCH (10:22)
[2016-06-19] MEDS: LISINOPRIL 10 MG TABLET PO SCH ×2 (10:22→21:18)
[2016-06-19] MEDS: OXYCODONE HCL IR 5 MG TABLET PO PRN ×2 (10:38→14:47)
--- NOTE | 2016-06-19 11:16 | PDOC PROGRESS REPORT ---
Subjective Progress Note for:: 06/19/16 Subjective:: Patient reported unsatisfactory pain control, particularly affecting her left fingers with evidence of arterial insufficiency. P.O intake remain poor due to esophageal involvement in her scleroderma. She remain on 10% Dextrose infusion. No reported fever or chills. No difficulty with breathing, still use BiPAP support. No chest pain. Physical Exam Vital Signs: Temp Pulse Resp BP Pulse Ox 97.8 F 67 14 132/80 H 96 06/19/16 03:55 06/19/16 08:00 06/19/16 08:00 06/19/16 08:00 06/18/16 12:14 Intake & Output 06/18/16 06/19/16 06/20/16 06:59 06:59 06:59 Intake Total 660 200 Output Total 250 700 Balance 410 -500 Weight 51.9 kg 51.9 kg General appearance: PRESENT: cooperative, thin - emaciated Head exam: PRESENT: atraumatic, normocephalic Eye exam: PRESENT: conjunctiva pink, EOMI, PERRLA. ABSENT: scleral icterus Mouth exam: PRESENT: dry mucosa Respiratory exam: PRESENT: clear to auscultation frankie, decreased breath sounds Cardiovascular exam: PRESENT: RRR. ABSENT: diastolic murmur, rubs, systolic murmur GI/Abdominal exam: PRESENT: normal bowel sounds, soft. ABSENT: distended, guarding, mass, organolmegaly, rebound, tenderness Musculoskeletal exam: PRESENT: deformity - related th arthritis involvement with multiple joints. Neurological exam: PRESENT: alert, awake, oriented to person, oriented to place , oriented to time, oriented to situation Psychiatric exam: PRESENT: appropriate affect Skin exam: PRESENT: dry - with very poor tugor and discoloration involving distal phalanx of multiple fingers and toes, warm Results Laboratory Results: 06/18/16 05:15 06/19/16 06:04 06/19/16 06:04 Sodium 136.8 L Potassium 3.1 L Chloride 104 Carbon Dioxide 26 Anion Gap 7 BUN 9 Creatinine 2.15 H Est GFR ( Amer) 30 L Est GFR (Non-Af Amer) 25 L Glucose 70 L Calcium 6.7 L* 05/29/16 05/30/16 05/31/16 23:45 05:55 05:15 Creatine Kinase 31 CK-MB (CK-2) 1.81 1.71 Troponin I 0.069 0.094 05/31/16 05:15 Creatine Kinase CK-MB (CK-2) 1.46 Troponin I 0.079 Impressions: Chest/Abdomen CTA 05/29/16 18:00 IMPRESSION: No evidence for pulmonary embolic disease. Extensive chronic appearing changes as noted above. Small right pleural effusion is again identified which appears slightly larger than on the previous study. The previously described rounded masslike density in the right lower lobe is again identified. There is a central somewhat low density area and the possibility of a necrotic neoplasm or developing lung abscess cannot be excluded. Large pericardial effusion is again identified. Other findings as noted above Modified Barium Swallow 06/11/16 00:00 IMPRESSION: FLASH LARYNGEAL PENETRATION FROM RESIDUALS, WITHOUT ASPIRATION, SEEN WITH PUREED CONSISTENCY.PLEASE SEE SPEECH PATHOLOGIST REPORT FOR OTHER FINDINGS AND RECOMMENDATIONS. Chest X-Ray 06/11/16 06:00 IMPRESSION: NO CHANGE IN APPEARANCE OF THE CHEST Assessment & Plan - Diagnosis (1) End stage renal disease on dialysis Is this a current diagnosis for this admission?: YesPlan: See covering attending physician orders. (2) Lung cancer Qualifiers: Laterality: unspecified laterality Lung location: unspecified part of lung Qualified Code(s): C34.90 - Malignant neoplasm of unspecified part of unspecified bronchus or lung Is this a current diagnosis for this admission?: YesPlan: See covering attending physician orders. (3) Malignant cachexia Is this a current diagnosis for this admission?: YesPlan: See covering attending physician orders. Awaiting GI crop consultant input regarding request for PEG tube placement due to esophageal involvement with scleroderma. Her hypocalcemia probable related to malnutrition. (4) Scleroderma Is this a current diagnosis for this admission?: YesPlan: See covering attending physician orders. (5) Hypocalcemia Is this a current diagnosis for this admission?: YesPlan: See covering attending physician orders. Probably related to malnutrition state. - Time Time Spent with patient: 25-34 minutes Medications reviewed and adjusted accordingly: Yes Anticipated discharge: SNF - Inpatient Certification Medical Necessity: Need Close Monitoring Due to Risk of Patient Decompensation, Need For IV Fluids, Need For Continuous Telemetry Monitoring, Need for IV Antibiotics, Risk of Complication if Not Cared For in Hospital Post Hospital Care: D/C or Transfer Summary - Plan Summary Plan Summary: See covering attending physician orders.
--- NOTE | 2016-06-19 11:17 | PDOC PROGRESS REPORT ---
Subjective Progress Note for:: 06/19/16 Physical Exam Vital Signs: Temp Pulse Resp BP Pulse Ox 97.8 F 67 14 132/80 H 96 06/19/16 03:55 06/19/16 08:00 06/19/16 08:00 06/19/16 08:00 06/18/16 12:14 Intake & Output 06/18/16 06/19/16 06/20/16 06:59 06:59 06:59 Intake Total 660 200 Output Total 250 700 Balance 410 -500 Weight 51.9 kg 51.9 kg General appearance: PRESENT: cooperative, disheveled, other Head exam: PRESENT: atraumatic, normocephalic Neck exam: ABSENT: carotid bruit, JVD, lymphadenopathy, thyromegaly Respiratory exam: PRESENT: decreased breath sounds, prolonged expiratory phas, rales, rhonchi, symmetrical, unlabored Cardiovascular exam: PRESENT: irregular rhythm Pulses: PRESENT: normal radial pulses GI/Abdominal exam: PRESENT: normal bowel sounds, soft. ABSENT: distended, guarding, mass, organolmegaly, rebound, tenderness Rectal exam: PRESENT: deferred Extremities exam: PRESENT: other - ischemic toes and fingers Neurological exam: PRESENT: awake Psychiatric exam: PRESENT: normal mood Results Laboratory Results: 06/18/16 05:15 06/19/16 06:04 06/19/16 06:04 Sodium 136.8 L Potassium 3.1 L Chloride 104 Carbon Dioxide 26 Anion Gap 7 BUN 9 Creatinine 2.15 H Est GFR ( Amer) 30 L Est GFR (Non-Af Amer) 25 L Glucose 70 L Calcium 6.7 L* 05/29/16 05/30/16 05/31/16 23:45 05:55 05:15 Creatine Kinase 31 CK-MB (CK-2) 1.81 1.71 Troponin I 0.069 0.094 05/31/16 05:15 Creatine Kinase CK-MB (CK-2) 1.46 Troponin I 0.079 Impressions: Chest/Abdomen CTA 05/29/16 18:00 IMPRESSION: No evidence for pulmonary embolic disease. Extensive chronic appearing changes as noted above. Small right pleural effusion is again identified which appears slightly larger than on the previous study. The previously described rounded masslike density in the right lower lobe is again identified. There is a central somewhat low density area and the possibility of a necrotic neoplasm or developing lung abscess cannot be excluded. Large pericardial effusion is again identified. Other findings as noted above Modified Barium Swallow 06/11/16 00:00 IMPRESSION: FLASH LARYNGEAL PENETRATION FROM RESIDUALS, WITHOUT ASPIRATION, SEEN WITH PUREED CONSISTENCY.PLEASE SEE SPEECH PATHOLOGIST REPORT FOR OTHER FINDINGS AND RECOMMENDATIONS. Chest X-Ray 06/11/16 06:00 IMPRESSION: NO CHANGE IN APPEARANCE OF THE CHEST Assessment & Plan - Diagnosis (1) Acute hypoxemic respiratory failure Is this a current diagnosis for this admission?: Yes (2) End stage renal disease Is this a current diagnosis for this admission?: Yes (3) Lung abscess Qualifiers: Pulmonary abscess pneumonia presence: with pneumonia Laterality: right Lung location: unspecified part of lung Qualified Code(s): J85.1 - Abscess of lung with pneumonia Is this a current diagnosis for this admission?: No (4) Lung cancer Qualifiers: Laterality: unspecified laterality Lung location: unspecified part of lung Qualified Code(s): C34.90 - Malignant neoplasm of unspecified part of unspecified bronchus or lung Is this a current diagnosis for this admission?: Yes (5) Scleroderma Is this a current diagnosis for this admission?: Yes - Time Time Spent with patient: 35 or more minutes
[2016-06-19] MEDS: PANTOPRAZOLE SODIUM 40 MG VIAL IV SCH (12:07)
--- NOTE | 2016-06-19 16:20 | PDOC PROGRESS REPORT ---
Subjective Progress Note for:: 06/19/16 Physical Exam Vital Signs: Temp Pulse Resp BP Pulse Ox 98.2 F 80 27 H 122/78 100 06/19/16 12:31 06/19/16 12:35 06/19/16 12:35 06/19/16 12:00 06/19/16 12:35 Intake & Output 06/18/16 06/19/16 06/20/16 06:59 06:59 06:59 Intake Total 660 200 Output Total 250 700 Balance 410 -500 Weight 51.9 kg 51.9 kg Additional comments: Constitutional: A thin -[place] lady. Mild chronic respiratory distress. On a BiPAP mask. Respiratory: Chronic shortness of breath with increased effort of breathing. Maintain in semiupright position. Extremities: Upper extremities show reduced pulses at the radial bilaterally. Both hands are severely clotted and attenuated from scleroderma. In addition the left third fourth and fifth during fingers have demarcating dry black eschar in the distal phalanges. Also some superficial necrosis and the tips of the right fingers. Lower extremities pertinent for femoral to feel pulses at the ankle. The left third digit has dry necrosis of the tip of the digit. The right heel has a patch of dry necrosis. The patient indicates all of these as areas of pain. Psychiatric: judgment, memory, insight seem normal. Mood is normal, appropriate and pleasant. Results Laboratory Results: 06/18/16 05:15 06/19/16 06:04 06/19/16 06/19/16 06:04 06:04 Sodium 136.8 L Potassium 3.1 L Chloride 104 Carbon Dioxide 26 Anion Gap 7 BUN 9 Creatinine 2.15 H Est GFR ( Amer) 30 L Est GFR (Non-Af Amer) 25 L Glucose 70 L Calcium 6.7 L* Albumin 1.8 L 05/29/16 05/30/16 05/31/16 23:45 05:55 05:15 Creatine Kinase 31 CK-MB (CK-2) 1.81 1.71 Troponin I 0.069 0.094 05/31/16 05:15 Creatine Kinase CK-MB (CK-2) 1.46 Troponin I 0.079 Impressions: Chest/Abdomen CTA 05/29/16 18:00 IMPRESSION: No evidence for pulmonary embolic disease. Extensive chronic appearing changes as noted above. Small right pleural effusion is again identified which appears slightly larger than on the previous study. The previously described rounded masslike density in the right lower lobe is again identified. There is a central somewhat low density area and the possibility of a necrotic neoplasm or developing lung abscess cannot be excluded. Large pericardial effusion is again identified. Other findings as noted above Modified Barium Swallow 06/11/16 00:00 IMPRESSION: FLASH LARYNGEAL PENETRATION FROM RESIDUALS, WITHOUT ASPIRATION, SEEN WITH PUREED CONSISTENCY.PLEASE SEE SPEECH PATHOLOGIST REPORT FOR OTHER FINDINGS AND RECOMMENDATIONS. Chest X-Ray 06/11/16 06:00 IMPRESSION: NO CHANGE IN APPEARANCE OF THE CHEST Assessment & Plan - Diagnosis (1) Gangrene of finger Is this a current diagnosis for this admission?: Yes (2) Cardiomyopathy Qualifiers: Cardiomyopathy type: unspecified Qualified Code(s): I42.9 - Cardiomyopathy, unspecified Is this a current diagnosis for this admission?: Yes (3) Gangrene of toe Is this a current diagnosis for this admission?: Yes - Plan Summary Plan Summary: In this patient with extraordinary respiratory failure, advanced scleroderma and multiple comorbidities every intervention is fraught with complications. Ischemic dry necrosis is noted in several fingers of the left hand and at least one to of the left foot. Also of the right heel. Presence of prior arterial lines may have Contributed. Multifactorial. She also has considerable drainage up to 300 mils of serous fluid from the right groin where she had a catheter. Previously. This may be due to lymphatic drainage. At this point it is difficult to recommend any further interventions. I discussed this with Dr. Segundo. I feel that an arterial duplex of her 4 extremities is a reasonable place to start. Also to continue to consider anticoagulation at least aspirin if otherwise not contraindicated. I will leave these decisions up to him. I have discussed these with the patient. She seems to have a really good grasp on things and is willing to try however this must be tempered with the unfortunate fact that almost every intervention will likely result in even worse complications. I will continue to see the patient from time to time and be available if needed.
[2016-06-19] MEDS: HYDROCODONE/ACETAMINOPHEN 5-325 MG TABLET PO PRN (21:18)
[2016-06-19] MEDS: LORAZEPAM 0.5 MG TABLET PO PRN (21:18)
[2016-06-19] MEDS: DEXTROSE 50%-WATER SYRINGE 25 GM/50 ML DOSE IV PRN (21:45)
--- NOTE | 2016-06-19 23:23 | PROGRESS NOTE E ---
Progress Note NAME: FELISA MILES : 1975 AGE: 40Y DATE: 06/19/2016 ROOM: 405 SUBJECTIVE: The patient was seen around 9 a.m. this morning. The patient has deteriorated and seems very debilitated and emaciated. She has intermittent tachypnea and tachycardia. She denies any chest pain. She does have orthopnea but no PND. The patient has dry gangrene of her fingers medial side of her left hand and also on the toe of the left foot. OBJECTIVE: GENERAL: The patient seems to be not improving. There is no change in the patient's status. VITAL SIGNS: Earlier this morning the patient was afebrile. Her pulse is 67 beats per minute. Blood pressure is 132/80. Respirations are 14 per minute. Her O2 sats are 100% on 2 L. The patient intermittently is on BiPAP. HEENT: Head is atraumatic, normocephalic. Eyes: Pupils are equal, round, regular and reactive to light and accommodation. Sclerae intact and anicteric. Her conjunctivae are pink. The patient looks very debilitated and cachectic. ENT is negative. NECK: Supple without lymphadenopathy. Trachea is central. There is no goiter. Carotids are equal without any bruits. LUNGS: Show no accessory muscles of respiration use. There are right crackles in the bases. There is no rhonchi or wheezing. HEART: S1, S2 is heard. There is an S3 gallop. There is an S4 gallop. There is a systolic murmur in the sternal border and the apex. There is no rub. ABDOMEN: Soft, nontender. Bowel sounds are normal. There is no hepatosplenomegaly. There is no guarding, rebound or rigidity. EXTREMITIES: Pedal pulses are markedly diminished. There is no calf tenderness noted, no clubbing. There is 1+ pedal edema noted. There is no cyanosis but there is dry gangrene of the *------* 3 fingers of her left hand. In addition she has dry gangrene of one of the toes of the left foot. NEUROLOGIC: The patient is awake and alert with no focal deficits. PSYCHIATRIC: The patient appears to be depressed. Her affect is flat. IMPRESSION: 1. ACUTE HYPOXEMIC RESPIRATORY FAILURE. This seems to be [id number] hypoxemic respiratory failure. 2. END-STAGE RENAL DISEASE. 3. LUNG CANCER, UNSPECIFIED PART OF LUNG. 4. STATUS POST SEPTIC SHOCK. At present, blood pressure is stable. 5. PULMONARY FIBROSIS. 6. SCLERODERMA. 7. CARDIOMYOPATHY. RECOMMENDATION: Continue current treatment. The patient undergoing dialysis. The patient has been seen by Dr. Claudio Lawler, the surgicalist, and he feels it is difficult to recommend any recommendation in view of advanced scleroderma and multiple comorbidities. Arterial duplex of the lower extremities has been ordered. Plan to continue hemodialysis. Continue erythropoietin. Note the patient is on heparin 5000 units subcutaneously q.8 h. She is also on Coreg and she is also on lisinopril for her cardiomyopathy. Note: 25 minutes spent on the patient with more than 50% of the time spent on direct patient care. Medications reviewed. The patient I believe is in extremely serious condition. DICTATING PHYSICIAN: LAURA TOVAR M.D. [id number] ALLISONY#: [id number] ID: [id number] JOB#: [id number] ACCT: [id number] cc: >
[2016-06-20] MEDS: OXYCODONE HCL IR 5 MG TABLET PO PRN ×3 (00:45→20:09)
[2016-06-20] MEDS: HYDROCODONE/ACETAMINOPHEN 5-325 MG TABLET PO PRN ×2 (05:36→22:30)
[2016-06-20] MEDS: HEPARIN SOD (PORCINE) 5,000 UNIT/ML 1 ML SYRINGE SUBCUT SCH ×3 (05:37→20:10)
[2016-06-20] MEDS: DEXTROSE 10%-WATER 1,000 ML IV PRN (05:38)
[2016-06-20 06:44] LABS: ANION GAP 9 (5-19); BLOOD UREA NITROGEN 14 mg/dL (7-20); CALCIUM 7.8 mg/dL (8.4-10.2); CARBON DIOXIDE 27 mmol/L (22-30); CHLORIDE 97 mmol/L (98-107); GLUCOSE 88 mg/dL (75-110); POTASSIUM 3.8 mmol/L (3.6-5.0)
--- NOTE | 2016-06-20 10:07 | PDOC PROGRESS REPORT ---
Subjective Progress Note for:: 06/20/16 Subjective:: Patient continue to expressed pain in multiple fingers, particularly affecting her left fingers with evidence of arterial insufficiency. I discused her case with Dr Claudio Lawler since last clinical evaluation with suggestion of poor prognosis. P.O intake remain poor due to esophageal involvement in her scleroderma. Awaiting GI consultation for possible PEG tube placement. She remain on 10% Dextrose infusion. No reported fever or chills. No difficulty with breathing, still use BiPAP support. No chest pain. Physical Exam Vital Signs: Temp Pulse Resp BP Pulse Ox 97.7 F 74 17 155/91 H 100 06/20/16 08:00 06/20/16 08:00 06/20/16 08:00 06/20/16 08:00 06/20/16 00:51 Intake & Output 06/19/16 06/20/16 06/21/16 06:59 06:59 06:59 Intake Total 200 582 Output Total 700 0 Balance -500 582 Weight 51.9 kg 57.1 kg Physical Exam: General appearance: PRESENT: cooperative, thin - emaciated Head exam: PRESENT: atraumatic, normocephalic Eye exam: PRESENT: conjunctiva pink, EOMI, PERRLA. ABSENT: scleral icterus Mouth exam: PRESENT: dry mucosa Respiratory exam: PRESENT: clear to auscultation frankie, decreased breath sounds Cardiovascular exam: PRESENT: RRR. ABSENT: diastolic murmur, rubs, systolic murmur GI/Abdominal exam: PRESENT: normal bowel sounds, soft. ABSENT: distended, guarding, mass, organomegaly, rebound, tenderness Musculoskeletal exam: PRESENT: deformity - related th arthritis involvement with multiple joints. Neurological exam: PRESENT: alert, awake, oriented to person, oriented to place , oriented to time, oriented to situation Psychiatric exam: PRESENT: appropriate affect Skin exam: PRESENT: dry - with very poor tugor and dark discoloration involving right heel, distal phalanx of multiple fingers and toes, warm Results Laboratory Results: 06/18/16 05:15 06/20/16 05:45 06/19/16 06/20/16 06:04 05:45 Sodium 133.0 L Potassium 3.8 Chloride 97 L Carbon Dioxide 27 Anion Gap 9 BUN 14 Creatinine 3.20 H Est GFR ( Amer) 19 L Est GFR (Non-Af Amer) 16 L Glucose 88 Calcium 7.8 L Albumin 1.8 L 05/29/16 05/30/16 05/31/16 23:45 05:55 05:15 Creatine Kinase 31 CK-MB (CK-2) 1.81 1.71 Troponin I 0.069 0.094 05/31/16 05:15 Creatine Kinase CK-MB (CK-2) 1.46 Troponin I 0.079 Impressions: Chest/Abdomen CTA 05/29/16 18:00 IMPRESSION: No evidence for pulmonary embolic disease. Extensive chronic appearing changes as noted above. Small right pleural effusion is again identified which appears slightly larger than on the previous study. The previously described rounded masslike density in the right lower lobe is again identified. There is a central somewhat low density area and the possibility of a necrotic neoplasm or developing lung abscess cannot be excluded. Large pericardial effusion is again identified. Other findings as noted above Modified Barium Swallow 06/11/16 00:00 IMPRESSION: FLASH LARYNGEAL PENETRATION FROM RESIDUALS, WITHOUT ASPIRATION, SEEN WITH PUREED CONSISTENCY.PLEASE SEE SPEECH PATHOLOGIST REPORT FOR OTHER FINDINGS AND RECOMMENDATIONS. Chest X-Ray 06/11/16 06:00 IMPRESSION: NO CHANGE IN APPEARANCE OF THE CHEST Assessment & Plan - Diagnosis (1) Gangrene of finger Is this a current diagnosis for this admission?: YesPlan: See covering attending physician orders. I will request for arterila duplex study of both lower and upper extremities. I will start her on Cilostazol 50 mg p.o bid. (2) Lung cancer Qualifiers: Laterality: unspecified laterality Lung location: unspecified part of lung Qualified Code(s): C34.90 - Malignant neoplasm of unspecified part of unspecified bronchus or lung Is this a current diagnosis for this admission?: YesPlan: See covering attending physician orders. (3) Malignant cachexia Is this a current diagnosis for this admission?: YesPlan: See covering attending physician orders. Awaiting GI bi consultant input regarding request for PEG tube placement due to esophageal involvement with scleroderma. (4) Scleroderma Is this a current diagnosis for this admission?: YesPlan: See covering attending physician orders. (5) Hypocalcemia Is this a current diagnosis for this admission?: YesPlan: See covering attending physician orders. Probably related to malnutrition state. - Time Time Spent with patient: 25-34 minutes Medications reviewed and adjusted accordingly: Yes Anticipated discharge: Home with Homehealth Within: Other - Inpatient Certification Based on my medical assessment, after consideration of the patient's comorbidities, presenting symptoms, or acuity I expect that the services needed warrant INPATIENT care.: Yes I certify that my determination is in accordance with my understanding of Medicare's requirements for reasonable and necessary INPATIENT services [42 CFR 412.3e].: Yes Medical Necessity: Need Close Monitoring Due to Risk of Patient Decompensation, Need For IV Fluids, Need For Continuous Telemetry Monitoring, Risk of Complication if Not Cared For in Hospital Post Hospital Care: D/C Warp Knit Operator Documentation - Plan Summary Plan Summary: See covering physician attending orders.
[2016-06-20] MEDS: LISINOPRIL 10 MG TABLET PO SCH ×2 (10:51→20:08)
[2016-06-20] MEDS: CARVEDILOL 12.5 MG TABLET PO SCH ×2 (10:51→20:09)
[2016-06-20] MEDS: MEGESTROL ACETATE SUSP 400 MG/10 ML UDCUP PO SCH (10:51)
[2016-06-20] MEDS: DEXTROSE 50%-WATER SYRINGE 12.5 GM/25 ML DOSE IV PRN ×2 (11:56→15:29)
[2016-06-20] MEDS: PANTOPRAZOLE SODIUM 40 MG VIAL IV SCH (13:20)
--- NOTE | 2016-06-20 15:18 | PROGRESS NOTE E ---
Progress Note NAME: FELISA MILES : 1975 AGE: 40Y DATE: 06/20/2016 ROOM: 405 SUBJECTIVE: The patient was seen at 12:30 p.m. The patient continues to be on CPAP and has some shortness of breath. There is no leg edema. Denies any chest pain or discomfort. There is orthopnea present. There is no PND. She complains of pain in the left medial 3 fingers and a toe. Due to *------* problems, she is not able to follow anything. 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 OBJECTIVE: GENERAL: On examination, the patient seems not to be improving. There are no changes in the patient's status. The patient is currently ill nourished and cachectic. VITAL SIGNS: She is afebrile with a temperature 98.6 degrees Fahrenheit. Pulse is 891 beats per minute. Blood pressure 162/100. Respirations are 18 per minute. O2 sats are 100% on CPAP. HEENT: Head: Atraumatic, normocephalic. Eyes: Pupils are equal, round, regular, and reactive to light and accommodation. Sclerae are intact and anicteric. The conjunctivae is pink. The patient looks very debilitated and cachectic. NECK: Supple without lymphadenopathy. Trachea is central. There is no goiter. *------* without any bruits. LUNGS: Showed no accessory muscles for respiration use. There are crackles in the bases. There is no rhonchi, wheezing. HEART: S1, S2 heard. There is no S3 gallop. There is no S4 gallop. There is a systolic murmur the left sternal border in the apex. There is no rub. ABDOMEN: Soft, nontender. Bowel sounds are normal. There is no hepatosplenomegaly. There is no guarding, rigidity or rebound. EXTREMITIES: Pedal pulses are markedly diminished. There is no calf tenderness. There is no clubbing. There is no pedal edema today. There is no cyanosis. There is ricks gangrene of the medial 3 fingers of the left hand. In addition, she has dry gangrene of one of the toes of the left foot. NEUROLOGICAL: The patient is awake, slightly drowsy, but with no focal deficits. PSYCHIATRIC: The patient appears to be depressed. Affect is flat. DIAGNOSTIC DATA: The patient's sodium is 133, potassium is 3.8, chloride is 97. The patient's CO2 is 27. The patient's BUN is 14. Creatinine is 3.20. GFR is reduced at 19 mL, which is chronic kidney disease stage IV, but still on dialysis. Her intake output is not accurate. IMPRESSION: 1. ACUTE HYPOXEMIC RESPIRATORY FAILURE. THIS SEEMS TO BE ACUTE ON CHRONIC HYPOXEMIC RESPIRATORY FAILURE. 2. END-STAGE/STAGE IV RENAL DISEASE ON HEMODIALYSIS. 3. LUNG CANCER, UNSPECIFIC PART OF LUNG. 4. STATUS POST SEPTIC SHOCK. AT PRESENT, BLOOD PRESSURE IS HIGH. 5. PULMONARY FIBROSIS. 6. SCLERODERMA. 7. CARDIOMYOPATHY. 8. DRY GANGRENE OF THE MEDIAL THREE FINGERS OF THE LEFT HAND AND ALSO THE TOE ON THE LEFT FOOT. PLAN: Is to put a PEG tube for feeding the patient since she is not able to swallow. Continue her current medications. The patient's prognosis very poor. DICTATING PHYSICIAN: LAURA TOVAR M.D. [id number] [facility]#: [id number] ID: [id number] JOB#: [id number] ACCT: [id number] cc: >
[2016-06-20] MEDS: CILOSTAZOL 100 MG TABLET PO SCH (19:21)
[2016-06-20] MEDS: LORAZEPAM 0.5 MG TABLET PO PRN (20:09)
[2016-06-21] MEDS: HYDROCODONE/ACETAMINOPHEN 5-325 MG TABLET PO PRN (05:55)
[2016-06-21] MEDS: DEXTROSE 50%-WATER SYRINGE 25 GM/50 ML DOSE IV PRN ×2 (05:55→22:45)
[2016-06-21] MEDS: LORAZEPAM 0.5 MG TABLET PO PRN (05:56)
[2016-06-21] MEDS: HEPARIN SOD (PORCINE) 5,000 UNIT/ML 1 ML SYRINGE SUBCUT SCH ×2 (05:56→16:30)
[2016-06-21 06:33] LABS: ABSOLUTE EOSINOPHILS # (AUTO) 0.4 10^3/uL (0.0-0.6); ABSOLUTE LYMPHOCYTES (AUTO) 1.2 10^3/uL (0.5-4.7); ABSOLUTE NEUT (AUTO) 8.1 10^3/uL (1.7-8.2); BASOPHILS % (AUTO) 0.3 % (0-2); EOSINOPHILS % (AUTO) 3.4 % (0-6); HEMATOCRIT 26.4 % (36.0-47.0); HEMOGLOBIN 8.2 g/dL (12.0-15.5); HGB HCT DIFFERENCE -1.8; LYMPHOCYTES % (AUTO) 11.4 % (13-45); MEAN CORPUSCULAR HEMOGLOBIN 28.3 pg (27.0-33.4); MEAN CORPUSCULAR VOLUME 91 fl (80-97); MONOCYTES % (AUTO) 8.9 % (3-13); RED BLOOD COUNT 2.89 10^6/uL (3.72-5.28); RED CELL DISTRIBUTION WIDTH 17.7 % (11.5-14.0); WHITE BLOOD COUNT 10.6 10^3/uL (4.0-10.5)
[2016-06-21 06:48] LABS: ANION GAP 9 (5-19); BLOOD UREA NITROGEN 17 mg/dL (7-20); CALCIUM 7.5 mg/dL (8.4-10.2); CARBON DIOXIDE 26 mmol/L (22-30); CHLORIDE 96 mmol/L (98-107); CREATININE RESULT 3.69 mg/dL (0.52-1.25); GLUCOSE 81 mg/dL (75-110); POTASSIUM 3.7 mmol/L (3.6-5.0)
[2016-06-21] MEDS ORDERED: HEPARIN SOD (PORCINE) 1,000 UNIT/ML 10 ML VIAL IV PRN (10:15)
[2016-06-21] MEDS ORDERED: EPOETIN ALFA 10,000 UNIT in SYRINGE, DISPOSABLE, 1 EACH IV ONE (11:00)
[2016-06-21] MEDS: CILOSTAZOL 100 MG TABLET PO SCH ×2 (11:06→16:30)
[2016-06-21] MEDS: MEGESTROL ACETATE SUSP 400 MG/10 ML UDCUP PO SCH (12:53)
[2016-06-21] MEDS: CARVEDILOL 12.5 MG TABLET PO SCH (12:53)
[2016-06-21] MEDS: LISINOPRIL 10 MG TABLET PO SCH (12:53)
[2016-06-21] MEDS: PANTOPRAZOLE SODIUM 40 MG VIAL IV SCH (13:13)
--- NOTE | 2016-06-21 18:40 | PDOC PROGRESS REPORT ---
Subjective Progress Note for:: 06/21/16 Subjective:: She was seen on hemodialysis today. She mentioned that the throat pain is some better and she is able to eat some more better. She denies any history of chest pain shortness of breath no history of nausea vomiting. No fever chills. She has got some pain in her fingers and we can see that she is developing dry gangrene of left digits.She is currently undergoing dialysis without any issues. Will try to remove close to a liter of fluid as tolerated. Orders were discussed with the treating nurse. Physical Exam Vital Signs: Temp Pulse Resp BP Pulse Ox 97.8 F 59 L 18 124/89 H 96 06/21/16 16:00 06/21/16 16:00 06/21/16 16:00 06/21/16 16:00 06/21/16 16:00 Intake & Output 06/20/16 06/21/16 06/22/16 06:59 06:59 06:59 Intake Total 582 300 Output Total 0 200 1900 Balance 582 100 -1900 Weight 57.1 kg 57.1 kg General appearance: PRESENT: no acute distress, disheveled Mouth exam: PRESENT: dry mucosa, neck supple Neck exam: ABSENT: lymphadenopathy, meningismus, tenderness, thyromegaly, tracheal deviation Respiratory exam: PRESENT: clear to auscultation frankie, crackles, decreased breath sounds Cardiovascular exam: PRESENT: +S1, +S2, systolic murmur Pulses: PRESENT: other - Poor radial pulses in both hands with dry gangrene of left digits GI/Abdominal exam: PRESENT: normal bowel sounds, soft. ABSENT: distended, firm , tenderness Extremities exam: ABSENT: pedal edema Neurological exam: PRESENT: awake, oriented to person, oriented to place. ABSENT: oriented to time Results Laboratory Results: 06/21/16 05:40 06/21/16 05:40 06/21/16 06/21/16 05:40 05:40 WBC 10.6 H RBC 2.89 L Hgb 8.2 L Hct 26.4 L MCV 91 MCH 28.3 MCHC 31.0 L RDW 17.7 H Plt Count 263 Seg Neutrophils % 76.0 Lymphocytes % 11.4 L Monocytes % 8.9 Eosinophils % 3.4 Basophils % 0.3 Absolute Neutrophils 8.1 Absolute Lymphocytes 1.2 Absolute Monocytes 1.0 Absolute Eosinophils 0.4 Absolute Basophils 0.0 Sodium 131.0 L Potassium 3.7 Chloride 96 L Carbon Dioxide 26 Anion Gap 9 BUN 17 Creatinine 3.69 H Est GFR ( Amer) 16 L Est GFR (Non-Af Amer) 13 L Glucose 81 Calcium 7.5 L 05/29/16 05/30/16 05/31/16 23:45 05:55 05:15 Creatine Kinase 31 CK-MB (CK-2) 1.81 1.71 Troponin I 0.069 0.094 05/31/16 05:15 Creatine Kinase CK-MB (CK-2) 1.46 Troponin I 0.079 Impressions: Chest/Abdomen CTA 05/29/16 18:00 IMPRESSION: No evidence for pulmonary embolic disease. Extensive chronic appearing changes as noted above. Small right pleural effusion is again identified which appears slightly larger than on the previous study. The previously described rounded masslike density in the right lower lobe is again identified. There is a central somewhat low density area and the possibility of a necrotic neoplasm or developing lung abscess cannot be excluded. Large pericardial effusion is again identified. Other findings as noted above Modified Barium Swallow 06/11/16 00:00 IMPRESSION: FLASH LARYNGEAL PENETRATION FROM RESIDUALS, WITHOUT ASPIRATION, SEEN WITH PUREED CONSISTENCY.PLEASE SEE SPEECH PATHOLOGIST REPORT FOR OTHER FINDINGS AND RECOMMENDATIONS. Chest X-Ray 06/11/16 06:00 IMPRESSION: NO CHANGE IN APPEARANCE OF THE CHEST Assessment & Plan - Diagnosis (1) Acute hypoxemic respiratory failure Is this a current diagnosis for this admission?: Yes (2) End stage renal disease Is this a current diagnosis for this admission?: YesPlan: Patient undergoing dialysis. We will plan to remove at least 1 L of fluid as tolerated. Orders were discussed with the treating nurse. (3) Lung abscess Qualifiers: Pulmonary abscess pneumonia presence: with pneumonia Laterality: right Lung location: unspecified part of lung Qualified Code(s): J85.1 - Abscess of lung with pneumonia Is this a current diagnosis for this admission?: No (4) Lung cancer Qualifiers: Laterality: unspecified laterality Lung location: unspecified part of lung Qualified Code(s): C34.90 - Malignant neoplasm of unspecified part of unspecified bronchus or lung Is this a current diagnosis for this admission?: YesPlan: Has been seen at [facility] multiple times , but has had no definitive treatments done given the very poor prognosis and very poor serious comorbidities. (5) Septic shock Is this a current diagnosis for this admission?: Yes (7) Pulmonary fibrosis Is this a current diagnosis for this admission?: YesPlan: Status quo. (8) Scleroderma Is this a current diagnosis for this admission?: YesPlan: With severe comorbidities and complications of the disease. (9) Anemia Plan: Monitor. Adjust low-dose erythropoietin. (10) Cardiomyopathy Qualifiers: Cardiomyopathy type: unspecified Qualified Code(s): I42.9 - Cardiomyopathy, unspecified Is this a current diagnosis for this admission?: YesPlan: LV ejection fraction less than 15%. Very poor prognosis. (11) Malignant cachexia Is this a current diagnosis for this admission?: YesPlan: She has malignant cachexia. Unfortunate situation at this point.
--- NOTE | 2016-06-21 19:30 | PDOC PROGRESS REPORT ---
Subjective Progress Note for:: 06/21/16 Subjective:: She has dry gangrene of the fingers of the and and also the toe, I spoke to Dr. Jaquez, PEG tube inserted tomorrow Physical Exam Vital Signs: Temp Pulse Resp BP Pulse Ox 97.8 F 59 L 18 124/89 H 96 06/21/16 16:00 06/21/16 16:00 06/21/16 16:00 06/21/16 16:00 06/21/16 16:00 Intake & Output 06/20/16 06/21/16 06/22/16 06:59 06:59 06:59 Intake Total 582 300 780 Output Total 0 200 1900 Balance 582 100 -1120 Weight 57.1 kg 57.1 kg General appearance: PRESENT: no acute distress Eye exam: PRESENT: PERRLA Respiratory exam: PRESENT: decreased breath sounds Cardiovascular exam: PRESENT: +S1, +S2 GI/Abdominal exam: PRESENT: soft Extremities exam: PRESENT: other - Dry gangrene of the fingers of right hand Results Laboratory Results: 06/21/16 05:40 06/21/16 05:40 06/21/16 06/21/16 05:40 05:40 WBC 10.6 H RBC 2.89 L Hgb 8.2 L Hct 26.4 L MCV 91 MCH 28.3 MCHC 31.0 L RDW 17.7 H Plt Count 263 Seg Neutrophils % 76.0 Lymphocytes % 11.4 L Monocytes % 8.9 Eosinophils % 3.4 Basophils % 0.3 Absolute Neutrophils 8.1 Absolute Lymphocytes 1.2 Absolute Monocytes 1.0 Absolute Eosinophils 0.4 Absolute Basophils 0.0 Sodium 131.0 L Potassium 3.7 Chloride 96 L Carbon Dioxide 26 Anion Gap 9 BUN 17 Creatinine 3.69 H Est GFR ( Amer) 16 L Est GFR (Non-Af Amer) 13 L Glucose 81 Calcium 7.5 L 05/29/16 05/30/16 05/31/16 23:45 05:55 05:15 Creatine Kinase 31 CK-MB (CK-2) 1.81 1.71 Troponin I 0.069 0.094 05/31/16 05:15 Creatine Kinase CK-MB (CK-2) 1.46 Troponin I 0.079 Impressions: Chest/Abdomen CTA 05/29/16 18:00 IMPRESSION: No evidence for pulmonary embolic disease. Extensive chronic appearing changes as noted above. Small right pleural effusion is again identified which appears slightly larger than on the previous study. The previously described rounded masslike density in the right lower lobe is again identified. There is a central somewhat low density area and the possibility of a necrotic neoplasm or developing lung abscess cannot be excluded. Large pericardial effusion is again identified. Other findings as noted above Modified Barium Swallow 06/11/16 00:00 IMPRESSION: FLASH LARYNGEAL PENETRATION FROM RESIDUALS, WITHOUT ASPIRATION, SEEN WITH PUREED CONSISTENCY.PLEASE SEE SPEECH PATHOLOGIST REPORT FOR OTHER FINDINGS AND RECOMMENDATIONS. Chest X-Ray 06/11/16 06:00 IMPRESSION: NO CHANGE IN APPEARANCE OF THE CHEST Assessment & Plan - Diagnosis (1) Acute hypoxemic respiratory failure Is this a current diagnosis for this admission?: Yes (2) Lung cancer Qualifiers: Laterality: unspecified laterality Lung location: unspecified part of lung Qualified Code(s): C34.90 - Malignant neoplasm of unspecified part of unspecified bronchus or lung Is this a current diagnosis for this admission?: Yes (3) Lung abscess Qualifiers: Pulmonary abscess pneumonia presence: with pneumonia Laterality: right Lung location: unspecified part of lung Qualified Code(s): J85.1 - Abscess of lung with pneumonia Is this a current diagnosis for this admission?: No (4) End stage renal disease Is this a current diagnosis for this admission?: Yes (5) Cardiac arrest Is this a current diagnosis for this admission?: Yes (6) Cardiogenic shock Is this a current diagnosis for this admission?: Yes (7) Septic shock Is this a current diagnosis for this admission?: Yes (8) Hypoglycemia Is this a current diagnosis for this admission?: Yes (9) Anorexia Is this a current diagnosis for this admission?: Yes (10) Gangrene of toe Is this a current diagnosis for this admission?: Yes - Plan Summary Plan Summary: 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
--- NOTE | 2016-06-21 21:53 | PROGRESS NOTE E ---
Progress Note NAME: FELISA MILES : 1975 AGE: 40Y DATE: 06/21/2016 ROOM: 405 SUBJECTIVE: Note that the patient was seen from 12:35 p.m. to 12:50 p.m., which is 15 minutes only. The patient is undergoing dialysis. She denies any chest pain or discomfort. She is off the BiPAP. She is on nasal cannula. There is orthopnea but no PND. There is no leg edema. There is no chest pain or discomfort. There is no palpitation and there is no arrhythmia seen on the monitor. OBJECTIVE: GENERAL: On examination, the patient seems not to be improving. There is no change in the patient's status. The patient is currently ill nourished and cachectic. VITAL SIGNS: Her temperature is 97.7 degrees Fahrenheit, her O2 sats are 100% on 4 L nasal cannula. The patient's respirations are 14 per minute. Her pulse rate is 79 beats per minute. Blood pressure is 163/68. HEENT: Head is atraumatic, normocephalic. Eyes: Pupils are equal, round, regular and reactive to light and accommodation. Sclerae are without icterus. The conjunctivae are pink. The patient looks very debilitated and cachectic. NECK: Supple without lymphadenopathy. Trachea is central. There is no goiter. Carotids are equal without any bruits. There is no JVD. LUNGS: Show no accessory muscles of respiration used. There are crackles in the bases which are dry. There is no rhonchi or wheezing. HEART: S1, S2 is heard. There is an S3 gallop. There is an S4 gallop. There is a systolic murmur in the sternal border and the apex. There is no rub. ABDOMEN: Soft, nontender. Bowel sounds are normal. There is no hepatosplenomegaly. There is no guarding, rebound or rigidity. EXTREMITIES: Pedal pulses are markedly diminished. There is no calf tenderness. There is no clubbing. There is no pedal edema. There is dry gangrene of the medial 3 fingers of the left hand. In addition she has dry gangrene of one of the toes of the left foot. This is not improved. NEUROLOGIC: The patient is awake, alert and oriented x3 with no focal deficits. Her affect is flat. LABORATORY DATA: The patient's white count is 10,600. Her hemoglobin is low at 8.2. Hematocrit is 26.4. Platelet count is 263,000. The patient's sodium is 131.0, potassium is 3.7, chloride 96, CO2 26. The patient's BUN is 17, creatinine is 3.69, her GFR is reduced at 16, which even though is stage 4, the patient requires dialysis in view of patient's renal function being poor and poor urine output and the patient's cardiomyopathy. The patient's calcium is low at 7.5. IMPRESSION: 1. ACUTE HYPOXEMIC RESPIRATORY FAILURE. This seems to be [id number] hypoxemic respiratory failure secondary to lung cancer and pulmonary fibrosis. Continue nasal oxygen. 2. END-STAGE/STAGE 4 RENAL DISEASE ON HEMODIALYSIS. The plan is to continue hemodialysis. 3. LUNG CANCER, UNSPECIFIED PART OF LUNG. This seems to be stable. 4. STATUS POST SEPTIC SHOCK. At present, blood pressure is high. 5. PULMONARY FIBROSIS. This seems to be not treatable. 6. SCLERODERMA. Seems to be in advanced stage. 7. CARDIOMYOPATHY WITH SEVERELY REDUCED LV EJECTION FRACTION OF LESS THAN 20%. Note that the patient is on lisinopril 10 mg p.o. q.12 h. and also the patient is on Coreg. 8. DRY GANGRENE OF THE MEDIAL 3 FINGERS OF THE LEFT HAND AND ALSO THE TOE ON THE LEFT FOOT. RECOMMENDATION: Continue Pletal. Will discuss with Dr. Lawler, the surgicalist/ vascular surgeon and the travel accommodations rater to see if we can add hydralazine or amlodipine, which could act as vasodilator. Note, in view of the patient's dysphagia, the plan is to put a PEG tube for feeding the patient. She is not able to swallow. Continue all her current medication. The patient's prognosis is very poor. Although the patient's highly complex multiple medical problems, I would not offer any major changes in her regimen and, hence, we will charge her as a low complexity case. Note, 15 minutes spent on this patient. The other physicians have already discussed with the patient and the patient's the patient's code status. She wants to be, and also her , want her to be a FULL CODE. We will need to have a family conference and see if we can make the patient comfort measures. I have not yet discussed this with the patient, will discuss it at a meeting with the patient and her with all the other doctors involved in the care of the patient. Note that the patient had lower extremity and upper extremity Dopplers, the results of which are not yet on the chart. Note, more than 50% of the time was spent on direct patient care. Thanking you. DICTATING PHYSICIAN: LAURA TOVAR M.D. [id number] [facility]#: [id number] ID: [id number] JOB#: [id number] ACCT: [id number] cc: >
[2016-06-22] MEDS: CEFAZOLIN 1 GM/D5W RTU 50 ML IV SCH ×3 (00:19→16:57)
[2016-06-22] MEDS: CARVEDILOL 12.5 MG TABLET PO SCH ×3 (00:19→21:59)
[2016-06-22] MEDS: HEPARIN SOD (PORCINE) 5,000 UNIT/ML 1 ML SYRINGE SUBCUT SCH ×4 (00:20→21:59)
[2016-06-22] MEDS: LISINOPRIL 10 MG TABLET PO SCH ×3 (00:20→21:59)
[2016-06-22] MEDS: DEXTROSE 50%-WATER SYRINGE 25 GM/50 ML DOSE IV PRN (04:49)
[2016-06-22 06:57] LABS: ANION GAP 8 (5-19); BLOOD UREA NITROGEN 8 mg/dL (7-20); CALCIUM 7.4 mg/dL (8.4-10.2); CARBON DIOXIDE 26 mmol/L (22-30); CHLORIDE 99 mmol/L (98-107); CREATININE RESULT 2.45 mg/dL (0.52-1.25); GLUCOSE 146 mg/dL (75-110); POTASSIUM 3.4 mmol/L (3.6-5.0); SODIUM 132.5 mmol/L (137-145)
[2016-06-22] MEDS: HYDROCODONE/ACETAMINOPHEN 5-325 MG TABLET PO PRN (09:43)
[2016-06-22] MEDS: CILOSTAZOL 100 MG TABLET PO SCH ×2 (09:43→18:54)
[2016-06-22] MEDS: MEGESTROL ACETATE SUSP 400 MG/10 ML UDCUP PO SCH (09:44)
[2016-06-22] MEDS ORDERED: HYDRALAZINE HCL 10 MG TABLET PO ONE (14:30)
--- NOTE | 2016-06-22 14:39 | XCELERA REPORT ---
[address] [address] Upper Extremity Arterial Evaluation Name: FELISA MILES Age: 40 yrs Gender: Female : 1975 Patient Status: Inpatient Patient Location: 4N\S\405\S\A Study Date: 06/21/2016 03:15 PM Reason For Study: Digital gangrene Ordering Physician: MILY GARRIDO Performed By: Shannon Gaspar Measurements and Calculations Right Left Prox SCLA PSV -77.8 185.2 cm/sec Ax A PSV 65.8 51.1 cm/sec Prox Brach A PSV 63.3 77.6 cm/sec Dist Brach A PSV -47.1 -69.2 cm/sec Dist Rad A PSV 62.9 -33.7 cm/sec Dist Ulnar A PSV -38.5 -63.3 cm/sec Ax A PSV 65.8 51.1 cm/sec Dist Brach A PSV -47.1 -69.2 cm/sec Dist Rad A PSV 62.9 -33.7 cm/sec Dist Ulnar A PSV -38.5 -63.3 cm/sec Prox Brach A PSV 63.3 77.6 cm/sec Right Side Arterial Evaluation Normal velocity and triphasic waveforms noted from the Common Carotid artery to the forearm vessels. 0% stenosis noted. Left Side Arterial Evaluation Normal velocity and triphasic waveforms noted from the Common Carotid artery to the Brachial artery. Multiphasic in the forearm vessels, with well maintained velocity. 0-19% stenosis noted. In the Radial artery. Interpretation Summary No hemodynamically significant lesions in the right upper extremity only, on duplex imaging, at rest. Mild hemodynamically significant lesions in the left upper extremity only, on duplex imaging, at rest. : MILY GARRIDO [place] >
--- NOTE | 2016-06-22 14:41 | XCELERA REPORT ---
[address] [address] Lower Extremity Arterial Evaluation Name: FELISA MILES Age: 40 yrs Gender: Female : 1975 Patient Status: Inpatient Patient Location: 4N\S\405\S\A Study Date: 06/21/2016 02:52 PM Procedure: A color flow and duplex scan of the lower extremity arteries was performed bilaterally with velocity and waveform anaylsis. Reason For Study: Digital gangrene Ordering Physician: MILY GARRIDO Performed By: Shannon Gaspar Measurements and Calculations Right Left CHURCH BUSINESS ADMINISTRATOR PSV 74.4 115.5 cm/sec Prox PFA PSV -46.2 -49.5 cm/sec Prox SFA PSV 100.4 99.3 cm/sec Mid SFA PSV 83.8 -84.2 cm/sec Dist SFA PSV -73.3 -84.2 cm/sec Prox Pop A PSV 75.1 cm/sec Dist Pop A PSV 72.5 cm/sec Dist ALEJANDRA PSV 67.3 94.8 cm/sec Dist MICROBIOLOGY LABORATORY MANAGER PSV 21.0 46.4 cm/sec Dist Hector A PSV 53.8 cm/sec Tobin Pedis PSV 72.8 108.2 cm/sec Right Side Arterial Evaluation Normal velocity and triphasic waveforms noted from the Common Femoral artery to the infrageniculate vessels. 0 % stenosis noted. Left Side Arterial Evaluation Normal velocity and triphasic waveforms noted from the Common Femoral artery to the infrageniculate vessels. 0 % stenosis noted. Interpretation Summary No hemodynamically significant lesions in the bilateral lower extremities, on duplex imaging, at rest. : MILY GARRIDO > Claudio Lawler
--- NOTE | 2016-06-22 14:59 | PDOC PROGRESS REPORT ---
Subjective Progress Note for:: 06/22/16 Subjective:: The patient looks much better, sitting out of bed with nasal supplemental oxygen. She confesses to feeling better and feeling upbeat. Physical Exam Vital Signs: Temp Pulse Resp BP Pulse Ox 97.6 F 79 17 147/97 H 99 06/22/16 12:22 06/22/16 12:22 06/22/16 12:22 06/22/16 12:22 06/22/16 08:37 Intake & Output 06/21/16 06/22/16 06/23/16 06:59 06:59 06:59 Intake Total 300 780 360 Output Total 200 1900 Balance 100 -1120 360 Weight 57.1 kg 51.9 kg Additional comments: A pleasant 40-year-old -[place] female. Alert and oriented, no acute distress. Upper extremities show severe, advanced clawing from scleroderma. Dry necrosis of the tips of the left 3 lateral fingers is noted. Some separation. Apart from the hand moderate decrease in range of motion at that the wrist elbow and shoulder. Results Laboratory Results: 06/21/16 05:40 06/22/16 06:30 06/22/16 06:30 Sodium 132.5 L Potassium 3.4 L Chloride 99 Carbon Dioxide 26 Anion Gap 8 BUN 8 Creatinine 2.45 H Est GFR ( Amer) 26 L Est GFR (Non-Af Amer) 22 L Glucose 146 H Calcium 7.4 L 05/29/16 05/30/16 05/31/16 23:45 05:55 05:15 Creatine Kinase 31 CK-MB (CK-2) 1.81 1.71 Troponin I 0.069 0.094 05/31/16 05:15 Creatine Kinase CK-MB (CK-2) 1.46 Troponin I 0.079 Impressions: Chest/Abdomen CTA 05/29/16 18:00 IMPRESSION: No evidence for pulmonary embolic disease. Extensive chronic appearing changes as noted above. Small right pleural effusion is again identified which appears slightly larger than on the previous study. The previously described rounded masslike density in the right lower lobe is again identified. There is a central somewhat low density area and the possibility of a necrotic neoplasm or developing lung abscess cannot be excluded. Large pericardial effusion is again identified. Other findings as noted above Modified Barium Swallow 06/11/16 00:00 IMPRESSION: FLASH LARYNGEAL PENETRATION FROM RESIDUALS, WITHOUT ASPIRATION, SEEN WITH PUREED CONSISTENCY.PLEASE SEE SPEECH PATHOLOGIST REPORT FOR OTHER FINDINGS AND RECOMMENDATIONS. Chest X-Ray 06/11/16 06:00 IMPRESSION: NO CHANGE IN APPEARANCE OF THE CHEST Assessment & Plan - Diagnosis (1) Gangrene of finger Is this a current diagnosis for this admission?: YesPlan: In this patient was arterial duplex study is close to normal in all 4 extremities. With the exception of mild disease in the forearm vessels on the left. Conservative management including vasodilators or mild anticoagulant such as aspirin, if tolerable. Have asked that Betadine be applied to the affected fingers daily. The objective is to allow separation and eschar. The expectation is for some, hopefully minimal, tissue loss over time. I have discussed this with the patient. She appears to understand rales still feels pretty good given her really good outcome overall given the underlying factors. (2) Cardiomyopathy Qualifiers: Cardiomyopathy type: unspecified Qualified Code(s): I42.9 - Cardiomyopathy, unspecified Is this a current diagnosis for this admission?: Yes (3) Gangrene of toe Is this a current diagnosis for this admission?: Yes
[2016-06-22] MEDS ORDERED: NALOXONE HCL INJ/PF 0.4 MG/1 ML SDV ONE (15:05)
[2016-06-22] MEDS ORDERED: FLUMAZENIL INJ 0.5 MG/5 ML VIAL IV ONE (15:06)
[2016-06-22] MEDS ORDERED: GLUCAGON,HUMAN RECOMB 1 MG INJ ONE (15:06)
[2016-06-22] MEDS ORDERED: FENTANYL CITRATE INJ/PF 100 MCG/2 ML AMPUL ONE (15:06)
[2016-06-22] MEDS ORDERED: EPINEPHRINE INJ 1 MG/10 ML DISP.SYRIN ONE (15:06)
[2016-06-22] MEDS ORDERED: MIDAZOLAM 2 MG/2 ML INJ ONE (15:06)
[2016-06-22] MEDS ORDERED: ONDANSETRON HCL INJ/PF 4 MG/2 ML SDV ONE (15:10)
--- NOTE | 2016-06-22 17:59 | PDOC CONSULTATION ---
Consultation Consult Date: 06/22/16 History of Present Illness Admission Date/PCP: 05/29/16 21:38 JORGE ALBERTO GARZA MD History of Present Illness: This is a 40-year-old patient was admitted to the hospital on 05/18/2016 with multiple medical problems including pulmonary fibrosis, scleroderma, lung cancer , end-stage renal disease on hemodialysis. She was in ICU for many weeks and had been on the ventilator. She is also had cardiac arrest during this admission. Consultation was requested for PEG tube placement. Patient denies any dysphagia but she tends to eat very slowly. It may take out of an hour to eat. According to the patient her weight has actually been stable though she has not gained any weight in a while. She has also had multiple episodes of hypoglycemia during this admission. She has had pneumonia as many times in the past. She had a modified barium swallow performed about a month ago which shows a moderate risk of aspiration. She also has a severe risk for nutritional compromise due to very small bites. Past Medical History Cardiac Medical History: Reports: DVT, Hyperlipidema, Hypertension Pulmonary Medical History: Reports: Asthma, Pneumonia Renal/ Medical History: Reports: End Stage Renal Disease Malignancy Medical History: Reports: Lung Cancer GI Medical History: Reports: Gastroesophageal Reflux Disease Musculoskeltal Medical History: Reports: Gout, Other - Systemic sclerosis complicated with pulmonary fibrosis, end-stage renal disease on hemodialysis Infectious Medical History: Denies: Methicillin-Resistant Staph Aureus Past Surgical History Past Surgical History: Reports: Section, Cholecystectomy, Other - Dialysis access related surgeries were noted Social History Smoking Status: Never Smoker Frequency of Alcohol Use: None Hx Recreational Drug Use: No Drugs: None Hx Prescription Drug Abuse: No - Advance Directive Resuscitation Status: Full Code Family History Family History: Reviewed & Not Pertinent Parental Family History Reviewed: No Children Family History Reviewed: NA Sibling(s) Family History Reviewed.: NA Medication/Allergy Home Medications: Hydrocodone/Acetaminophen [Hydrocodon-Acetamin 7.5-325/15] 15 ml PO Q6HP PRN Metoprolol Tartrate [Lopressor 100 mg Tablet] 100 mg PO Q12 05/31/16 Sertraline HCl [Zoloft 50 mg Tablet] 50 mg PO DAILY 05/31/16 Tramadol HCl/Acetaminophen [Tramadol-Acetaminophn 37.5-325] 1 each PO Q6 Allergies/Adverse Reactions: Shellfish * [Shellfish] Allergy (Verified 05/29/16 17:26) Review of Systems All systems: reviewed and no additional remarkable complaints except as stated Physical Exam Vital Signs: Temp Pulse Resp BP Pulse Ox 97.8 F 98 16 101/82 97 06/22/16 15:15 06/22/16 15:15 06/22/16 15:15 06/22/16 15:15 06/22/16 16:54 Intake & Output 06/21/16 06/22/16 06/23/16 06:59 06:59 06:59 Intake Total 300 780 360 Output Total 200 1900 Balance 100 -1120 360 Weight 57.1 kg 51.9 kg Exam: General: Patient is alert and looks well. She has evidence of severe scleroderma involving her fingers and toes and mouth. HEENT: There is no pallor or jaundice. PERRLA. Oropharynx normal Respiratory: There is some kyphosis. No respiratory distress. Chest wall palpitation was unremarkable. Breath sounds decreased bilaterally Cardiovascular: Heart sounds 1 and 2 normal with no murmurs. Abdominal: Not distended. Soft and nontender. Liver and spleen not palpable. No ascites demonstrated. Bowel sounds active. She has a scar from previous peritoneal dialysis Extremities: Evidence of scarring, and ischemia Neurological: Alert and oriented x4. Grossly nonfocal. Normal speech Psychological: Normal affect Results Laboratory Results: 06/21/16 05:40 06/22/16 06:30 06/22/16 06:30 Sodium 132.5 L Potassium 3.4 L Chloride 99 Carbon Dioxide 26 Anion Gap 8 BUN 8 Creatinine 2.45 H Est GFR ( Amer) 26 L Est GFR (Non-Af Amer) 22 L Glucose 146 H Calcium 7.4 L 05/29/16 05/30/16 05/31/16 23:45 05:55 05:15 Creatine Kinase 31 CK-MB (CK-2) 1.81 1.71 Troponin I 0.069 0.094 05/31/16 05:15 Creatine Kinase CK-MB (CK-2) 1.46 Troponin I 0.079 Impressions: Chest/Abdomen CTA 05/29/16 18:00 IMPRESSION: No evidence for pulmonary embolic disease. Extensive chronic appearing changes as noted above. Small right pleural effusion is again identified which appears slightly larger than on the previous study. The previously described rounded masslike density in the right lower lobe is again identified. There is a central somewhat low density area and the possibility of a necrotic neoplasm or developing lung abscess cannot be excluded. Large pericardial effusion is again identified. Other findings as noted above Modified Barium Swallow 06/11/16 00:00 IMPRESSION: FLASH LARYNGEAL PENETRATION FROM RESIDUALS, WITHOUT ASPIRATION, SEEN WITH PUREED CONSISTENCY.PLEASE SEE SPEECH PATHOLOGIST REPORT FOR OTHER FINDINGS AND RECOMMENDATIONS. Chest X-Ray 06/11/16 06:00 IMPRESSION: NO CHANGE IN APPEARANCE OF THE CHEST Assessment & Plan - Diagnosis (1) Dysphagia, oropharyngeal phase Is this a current diagnosis for this admission?: YesPlan: She actually is able to get her food down but she only eats in small bites and eating may take over an hour for her. She probably also has esophageal motility disorder from her scleroderma. She is cachectic and has episodes of hypoglycemia. She has also had pneumonia as before which may be from aspiration. I agree a PEG tube would be a good idea to provide supplemental nutrition. She initially signed the consent for the procedure but she now wants to think it over and discuss more with her PMD. I explained the risk and benefit of the PEG tube to the patient (3) Anorexia Is this a current diagnosis for this admission?: Yes (4) Cardiomyopathy Qualifiers: Cardiomyopathy type: unspecified Qualified Code(s): I42.9 - Cardiomyopathy, unspecified Is this a current diagnosis for this admission?: Yes (5) End stage renal disease Is this a current diagnosis for this admission?: Yes (6) Gangrene of finger Is this a current diagnosis for this admission?: Yes (7) Hypoglycemia Is this a current diagnosis for this admission?: Yes (8) Malignant cachexia Is this a current diagnosis for this admission?: Yes (9) Cor pulmonale Is this a current diagnosis for this admission?: Yes
[2016-06-22] MEDS: DEXTROSE 10%-WATER 1,000 ML IV PRN (18:54)
[2016-06-22] MEDS ORDERED: NYSTATIN TOPICAL POWDER 15 GM TP ONE (20:00)
[2016-06-22] MEDS ORDERED: NYSTATIN/DEXAMETH/DIPHEN SUSP 120 ML PO ONE (20:00)
--- NOTE | 2016-06-22 20:24 | PDOC PROGRESS REPORT ---
Subjective Progress Note for:: 06/22/16 Subjective:: She was seen by the bedside, she was apprehensive about the PEG tube, she was supposed to have it done today but she wanted to think about it tonight. I had discussion with her and the regarding need for the PEG tube, so that she can get discharge to start rehabilitation in the custodial Physical Exam Vital Signs: Temp Pulse Resp BP Pulse Ox 97.8 F 98 16 101/82 97 06/22/16 15:15 06/22/16 15:15 06/22/16 15:15 06/22/16 15:15 06/22/16 16:54 Intake & Output 06/21/16 06/22/16 06/23/16 06:59 06:59 06:59 Intake Total 300 780 360 Output Total 200 1900 Balance 100 -1120 360 Weight 57.1 kg 51.9 kg General appearance: PRESENT: no acute distress Eye exam: PRESENT: PERRLA Respiratory exam: PRESENT: crackles Cardiovascular exam: PRESENT: +S1, +S2 GI/Abdominal exam: PRESENT: soft Neurological exam: PRESENT: alert, CN II-XII grossly intact Results Laboratory Results: 06/21/16 05:40 06/22/16 06:30 06/22/16 06:30 Sodium 132.5 L Potassium 3.4 L Chloride 99 Carbon Dioxide 26 Anion Gap 8 BUN 8 Creatinine 2.45 H Est GFR ( Amer) 26 L Est GFR (Non-Af Amer) 22 L Glucose 146 H Calcium 7.4 L 05/29/16 05/30/16 05/31/16 23:45 05:55 05:15 Creatine Kinase 31 CK-MB (CK-2) 1.81 1.71 Troponin I 0.069 0.094 05/31/16 05:15 Creatine Kinase CK-MB (CK-2) 1.46 Troponin I 0.079 Impressions: Chest/Abdomen CTA 05/29/16 18:00 IMPRESSION: No evidence for pulmonary embolic disease. Extensive chronic appearing changes as noted above. Small right pleural effusion is again identified which appears slightly larger than on the previous study. The previously described rounded masslike density in the right lower lobe is again identified. There is a central somewhat low density area and the possibility of a necrotic neoplasm or developing lung abscess cannot be excluded. Large pericardial effusion is again identified. Other findings as noted above Modified Barium Swallow 06/11/16 00:00 IMPRESSION: FLASH LARYNGEAL PENETRATION FROM RESIDUALS, WITHOUT ASPIRATION, SEEN WITH PUREED CONSISTENCY.PLEASE SEE SPEECH PATHOLOGIST REPORT FOR OTHER FINDINGS AND RECOMMENDATIONS. Chest X-Ray 06/11/16 06:00 IMPRESSION: NO CHANGE IN APPEARANCE OF THE CHEST Assessment & Plan - Diagnosis (1) Acute hypoxemic respiratory failure Is this a current diagnosis for this admission?: Yes (2) Lung cancer Qualifiers: Laterality: unspecified laterality Lung location: unspecified part of lung Qualified Code(s): C34.90 - Malignant neoplasm of unspecified part of unspecified bronchus or lung Is this a current diagnosis for this admission?: Yes (3) Lung abscess Qualifiers: Pulmonary abscess pneumonia presence: with pneumonia Laterality: right Lung location: unspecified part of lung Qualified Code(s): J85.1 - Abscess of lung with pneumonia Is this a current diagnosis for this admission?: No (4) End stage renal disease Is this a current diagnosis for this admission?: Yes (5) Cardiac arrest Is this a current diagnosis for this admission?: Yes (6) Cardiogenic shock Is this a current diagnosis for this admission?: Yes (7) Septic shock Is this a current diagnosis for this admission?: Yes (8) Hypoglycemia Is this a current diagnosis for this admission?: Yes (9) Anorexia Is this a current diagnosis for this admission?: Yes (10) Gangrene of toe Is this a current diagnosis for this admission?: Yes
[2016-06-22] MEDS: NYSTATIN/DEXAMETH/DIPHEN SUSP 120 ML PO SCH (22:00)
[2016-06-22] MEDS: HYDRALAZINE HCL 10 MG TABLET PO SCH (22:00)
--- NOTE | 2016-06-23 00:24 | PROGRESS NOTE E ---
Progress Note NAME: FELISA MILES : 1975 AGE: 40Y DATE: 06/22/2016 ROOM: 405 SUBJECTIVE: Note that the patient was seen from 11:30 p.m. to 11:55 a.m., which is 25 minutes spent on the patient. The patient states that the shortness of breath is much improved. She is on nasal 02. The patient is able to swallow a little. There is no arrhythmia on the monitor. The patient has no PND but still has some orthopnea. There is no leg edema. There is no chest pain or PND but has orthopnea. There is no leg edema. There is no arrhythmia seen on the monitor. There are no TIA or CVA symptoms. She denies any cough or sputum production. There is no wheezing. Still awaiting gastroenterology to make a formal consult. OBJECTIVE: GENERAL: On examination, the patient seems to be a little better but still the patient has incurable advanced scleroderma, lung cancer, cachexia, malnutrition and gangrene; hence, her prognosis is very guarded. The patient looks cachectic and appears chronically ill nourished and chronically ill. VITAL SIGNS: Earlier this morning her temperature was 97.6 Fahrenheit, pulse 86 beats per minute, blood pressure was 138/94. She was on nasal cannula at 4 L with O2 sats of 99% and respirations were 17 beats per minute. HEENT: Head is atraumatic, normocephalic. Eyes: Pupils are equal, round, regular and reactive to light and accommodation. Sclerae are without icterus. The conjunctivae are pink. The patient looks very debilitated and cachectic. NECK: Supple without lymphadenopathy. Trachea is central. There is no goiter. Carotids are equal without any bruits. There is no JVD. Note that the patient's voice is hoarse. LUNGS: Show no accessory muscles of respiration used. There are crackles in the bases which are dry. There are no rhonchi or wheezing. HEART: S1, S2 is heard. There is no S3 gallop. There is no S4 gallop. There is a systolic murmur in the left sternal border and the apex. There is no rub. ABDOMEN: Soft, nontender. Bowel sounds are normal. There is no hepatosplenomegaly. There is no guarding, rebound or rigidity. EXTREMITIES: Pedal pulses are markedly diminished. There is no calf tenderness. Femorals are diminished. There are no femoral bruits. There is no pedal edema. There is no clubbing. There is dry gangrene of the medial 3 fingers of the left hand which is not improved. In addition, she has dry gangrene of one of the toes of the left foot; this is not improved. NEUROLOGIC: The patient is awake, alert and oriented x3 with no focal deficit. PSYCHIATRIC: The patient appears to be less depressed and does not appear to be agitated. The patient continues on intermittent dialysis as per Nephrology. LABORATORY DATA: The patient's sodium is 132.5, potassium is 3.4, chloride is 99, CO2 is 26. The patient's BUN is 8, creatinine is 2.45, GFR is 26 mL, and her glucose is 146. Her calcium is 7.4. IMPRESSION: 1. ACUTE HYPOXEMIC RESPIRATORY FAILURE, MUCH IMPROVED. Continue nasal oxygen. Note that the patient has lung cancer and pulmonary fibrosis which is incurable, and also she has advanced scleroderma. 2. END-STAGE/STAGE 4 RENAL DISEASE ON HEMODIALYSIS. The plan is to continue hemodialysis. 3. LUNG CANCER, UNSPECIFIED PART OF LUNG. This seems to be stable. 4. STATUS POST SEPTIC SHOCK. At present, blood pressure on the high side. 5. PULMONARY FIBROSIS. This seems to be not treatable. 6. SCLERODERMA. Seems to be in advanced stage. 7. CARDIOMYOPATHY WITH SEVERELY REDUCED LV EJECTION FRACTION OF LESS THAN 20%. At present the patient is on Coreg and lisinopril. Note that the patient is tolerating these medications. 8. HOARSENESS OF VOICE AND DIFFICULTY SWALLOWING. The patient states her swallowing is better and she is able to consume small amounts of food, but this will not be enough. Awaiting GI to talk to her about possible PEG tube placement. 9. DRY GANGRENE TO THE MEDIAL 3 FINGERS OF THE LEFT HAND AND ALSO TOES ON THE LEFT FOOT. RECOMMENDATION: Since the patient's blood pressure is still a little bit high and since hydralazine is a vasodilator, which is safe in renal failure, I will start the patient on 10 mg p.o. q.8 h. but will confer with statistics manager and have his opinion and concurrence before starting it. Note, 25 minutes spent on the patient with more than 50% of the time spent on direct patient care. Today the was not at the bedside. Thanking you. ADDENDUM: Later I spoke to Dr. Isaías Alaniz, the statistics manager, and he has no objection to me starting her on hydralazine to see if the vasodilator might improve the patient's gangrene. Hopefully it will do it. Note, although this is a patient with very complex problems, today the medical decision making has been of moderate complexity with me adding medication and medications have been reviewed. I am hesitant to increase the patient's Coreg, since this may cause increased vasospasm, especially in a patient with scleroderma who definitely must have Raynaud phenomena. Will follow with you. DICTATING PHYSICIAN: LAURA TOVAR M.D. [id number] FRANDY#: [id number] ID: [id number] JOB#: [id number] ACCT: [id number] cc: >
[2016-06-23] MEDS: LORAZEPAM 0.5 MG TABLET PO PRN (00:55)
[2016-06-23 00:59] LABS: ABSOLUTE BASOPHILS # (AUTO) 0.1 10^3/uL (0.0-0.2); ABSOLUTE EOSINOPHILS # (AUTO) 0.4 10^3/uL (0.0-0.6); ABSOLUTE LYMPHOCYTES (AUTO) 2.1 10^3/uL (0.5-4.7); ABSOLUTE MONOCYTES (AUTO) 1.5 10^3/uL (0.1-1.4); ABSOLUTE NEUT (AUTO) 9.6 10^3/uL (1.7-8.2); BASOPHILS % (AUTO) 0.9 % (0-2); EOSINOPHILS % (AUTO) 3.1 % (0-6); HEMATOCRIT 27.9 % (36.0-47.0); HEMOGLOBIN 8.6 g/dL (12.0-15.5); HGB HCT DIFFERENCE -2.1; LYMPHOCYTES % (AUTO) 15.4 % (13-45); MEAN CORPUSCULAR HEMOGLOBIN 28.4 pg (27.0-33.4); MEAN CORPUSCULAR HGB CONC 30.7 g/dL (32.0-36.0); MEAN CORPUSCULAR VOLUME 93 fl (80-97); MONOCYTES % (AUTO) 10.7 % (3-13); RED BLOOD COUNT 3.01 10^6/uL (3.72-5.28); RED CELL DISTRIBUTION WIDTH 17.4 % (11.5-14.0); SEGMENTED NEUTROPHILS % (AUTO) 69.9 % (42-78); WHITE BLOOD COUNT 13.7 10^3/uL (4.0-10.5)
[2016-06-23 01:10] LABS: ALANINE AMINOTRANSFERASE 16 U/L (9-52); ALBUMIN 2.1 g/dL (3.5-5.0); ALKALINE PHOSPHATASE 131 U/L (38-126); ANION GAP 9 (5-19); ASPARTATE AMINO TRANSFERASE 8 U/L (14-36); BILIRUBIN,DIRECT 0.4 mg/dL (0.0-0.4); BILIRUBIN,TOTAL 0.6 mg/dL (0.2-1.3); BLOOD UREA NITROGEN 11 mg/dL (7-20); CALCIUM 7.4 mg/dL (8.4-10.2); CARBON DIOXIDE 25 mmol/L (22-30); CHLORIDE 96 mmol/L (98-107); CREATININE RESULT 2.91 mg/dL (0.52-1.25); GLUCOSE 122 mg/dL (75-110); POTASSIUM 3.9 mmol/L (3.6-5.0); SODIUM 130.2 mmol/L (137-145); TOTAL PROTEIN 5.3 g/dL (6.3-8.2)
[2016-06-23] MEDS ORDERED: LORAZEPAM INJ 2 MG/1 ML VIAL ONE (02:02)
[2016-06-23] MEDS: CEFAZOLIN 1 GM/D5W RTU 50 ML IV SCH (05:37)
[2016-06-23] MEDS: HYDRALAZINE HCL 10 MG TABLET PO SCH ×3 (05:39→21:10)
[2016-06-23] MEDS: DEXTROSE 10%-WATER 1,000 ML IV PRN (05:46)
[2016-06-23] MEDS: HEPARIN SOD (PORCINE) 5,000 UNIT/ML 1 ML SYRINGE SUBCUT SCH ×3 (05:46→21:17)
[2016-06-23 06:30] LABS: ANION GAP 7 (5-19); BLOOD UREA NITROGEN 12 mg/dL (7-20); CALCIUM 7.1 mg/dL (8.4-10.2); CARBON DIOXIDE 26 mmol/L (22-30); CHLORIDE 95 mmol/L (98-107); CREATININE RESULT 2.94 mg/dL (0.52-1.25); GLUCOSE 111 mg/dL (75-110); POTASSIUM 3.3 mmol/L (3.6-5.0)
[2016-06-23 06:33] LABS: ABSOLUTE EOSINOPHILS # (AUTO) 0.3 10^3/uL (0.0-0.6); ABSOLUTE LYMPHOCYTES (AUTO) 0.9 10^3/uL (0.5-4.7); ABSOLUTE MONOCYTES (AUTO) 0.8 10^3/uL (0.1-1.4); BASOPHILS % (AUTO) 0.2 % (0-2); HEMATOCRIT 25.7 % (36.0-47.0); HGB HCT DIFFERENCE -1.7; LYMPHOCYTES % (AUTO) 8.9 % (13-45); MEAN CORPUSCULAR HEMOGLOBIN 28.2 pg (27.0-33.4); MEAN CORPUSCULAR HGB CONC 31.3 g/dL (32.0-36.0); MEAN CORPUSCULAR VOLUME 90 fl (80-97); MONOCYTES % (AUTO) 8.3 % (3-13); RED BLOOD COUNT 2.85 10^6/uL (3.72-5.28); RED CELL DISTRIBUTION WIDTH 17.6 % (11.5-14.0); SEGMENTED NEUTROPHILS % (AUTO) 79.6 % (42-78); WHITE BLOOD COUNT 10.1 10^3/uL (4.0-10.5)
[2016-06-23 08:22] LABS: ARTERIAL BLOOD BASE EXCESS -0.4 mmol/L; ARTERIAL BLOOD O2 SATURATION 97.1 % (94-98)
[2016-06-23] MEDS: CARVEDILOL 12.5 MG TABLET PO SCH ×2 (12:28→21:10)
[2016-06-23] MEDS: NYSTATIN TOPICAL POWDER 15 GM TP SCH ×2 (12:28→18:00)
[2016-06-23] MEDS: CILOSTAZOL 100 MG TABLET PO SCH ×2 (12:28→16:26)
[2016-06-23] MEDS: MEGESTROL ACETATE SUSP 400 MG/10 ML UDCUP PO SCH (12:28)
[2016-06-23] MEDS: LISINOPRIL 10 MG TABLET PO SCH ×2 (12:28→21:10)
[2016-06-23] MEDS: NYSTATIN/DEXAMETH/DIPHEN SUSP 120 ML PO SCH ×4 (12:28→21:10)
[2016-06-23] MEDS: MORPHINE SULFATE 10 MG/ML INJ IV PRN (14:32)
[2016-06-23] MEDS ORDERED: HEPARIN SOD (PORCINE) 1,000 UNIT/ML 10 ML VIAL IV PRN ×2 (15:27→16:59)
[2016-06-23] MEDS ORDERED: EPOETIN ALFA INJ 20000 UNIT/1 ML VIAL (RENAL) IV PRN (15:27)
[2016-06-23] MEDS: DEXTROSE 50%-WATER SYRINGE 25 GM/50 ML DOSE IV PRN ×3 (16:25→23:34)
--- NOTE | 2016-06-23 16:40 | PDOC PROGRESS REPORT ---
Subjective Progress Note for:: 06/23/16 Subjective:: Patient was seen early on the floor and later on dialysis. Patient had a seizure yesterday and she is lethargic when I see her on the floor. is by the bedside. She still wants to have her undergo dialysis as best as she can tolerate. Patient is severely lethargic and very difficult to arouse. However vital signs are stable.Patient is gone on to have a CT scan and it shows lesions in both the parietal regions and the radiologist opined for having an MRI for further delineation.Patient was then again seen later in the day in the ICU where she had been transferred to undergo hemodialysis as she was in respiratory failure and on BiPAPThis time she is a bit more awake and responsive to questions. However she looks very pathetic, weak in the face of malignant cachexia. She is undergoing dialysis currently. Orders were discussed with the treating nurse about her undergoing dialysis on low blood flow with no ultrafiltration for 2 hours. Physical Exam Vital Signs: Temp Pulse Resp BP Pulse Ox 98.1 F 116 H 15 160/102 H 95 06/23/16 08:00 06/23/16 08:00 06/23/16 16:13 06/23/16 16:13 06/23/16 00:55 Intake & Output 06/22/16 06/23/16 06/24/16 06:59 06:59 06:59 Intake Total 780 3060 Output Total 1900 100 Balance -1120 2960 Weight 51.9 kg 51.9 kg General appearance: PRESENT: disheveled, other - She looks very weak and tired in the face of severe malignant cachexia. Respiratory exam: PRESENT: clear to auscultation frankie, crackles, rhonchi Cardiovascular exam: PRESENT: +S1, +S2, systolic murmur GI/Abdominal exam: PRESENT: normal bowel sounds, soft. ABSENT: distended, firm , tenderness Musculoskeletal exam: PRESENT: other - She has got developing gangrene in both her hands Results Laboratory Results: 06/23/16 05:45 06/23/16 05:45 06/23/16 06/23/16 06/23/16 00:45 00:45 05:45 WBC 13.7 H RBC 3.01 L Hgb 8.6 L Hct 27.9 L MCV 93 MCH 28.4 MCHC 30.7 L RDW 17.4 H Plt Count 255 Seg Neutrophils % 69.9 Lymphocytes % 15.4 Monocytes % 10.7 Eosinophils % 3.1 Basophils % 0.9 Absolute Neutrophils 9.6 H Absolute Lymphocytes 2.1 Absolute Monocytes 1.5 H Absolute Eosinophils 0.4 Absolute Basophils 0.1 Carbonic Acid HCO3/H2CO3 Ratio ABG pH ABG pCO2 ABG pO2 ABG HCO3 ABG O2 Saturation ABG Base Excess FiO2 Sodium 130.2 L 128.0 L Potassium 3.9 3.3 L Chloride 96 L 95 L Carbon Dioxide 25 26 Anion Gap 9 7 BUN 11 12 Creatinine 2.91 H 2.94 H Est GFR ( Amer) 21 L 21 L Est GFR (Non-Af Amer) 18 L 18 L Glucose 122 H 111 H Calcium 7.4 L 7.1 L Total Bilirubin 0.6 AST 8 L ALT 16 Alkaline Phosphatase 131 H Total Protein 5.3 L Albumin 2.1 L 06/23/16 06/23/16 05:45 08:00 WBC 10.1 RBC 2.85 L Hgb 8.0 L Hct 25.7 L MCV 90 MCH 28.2 MCHC 31.3 L RDW 17.6 H Plt Count 253 Seg Neutrophils % 79.6 H Lymphocytes % 8.9 L Monocytes % 8.3 Eosinophils % 3.0 Basophils % 0.2 Absolute Neutrophils 8.0 Absolute Lymphocytes 0.9 Absolute Monocytes 0.8 Absolute Eosinophils 0.3 Absolute Basophils 0.0 Carbonic Acid 1.11 HCO3/H2CO3 Ratio 21:1 ABG pH 7.43 ABG pCO2 37.0 ABG pO2 90.0 ABG HCO3 23.8 ABG O2 Saturation 97.1 ABG Base Excess -0.4 FiO2 30% Sodium Potassium Chloride Carbon Dioxide Anion Gap BUN Creatinine Est GFR ( Amer) Est GFR (Non-Af Amer) Glucose Calcium Total Bilirubin AST ALT Alkaline Phosphatase Total Protein Albumin 05/29/16 05/30/16 05/31/16 23:45 05:55 05:15 Creatine Kinase 31 CK-MB (CK-2) 1.81 1.71 Troponin I 0.069 0.094 05/31/16 05:15 Creatine Kinase CK-MB (CK-2) 1.46 Troponin I 0.079 Impressions: Chest/Abdomen CTA 05/29/16 18:00 IMPRESSION: No evidence for pulmonary embolic disease. Extensive chronic appearing changes as noted above. Small right pleural effusion is again identified which appears slightly larger than on the previous study. The previously described rounded masslike density in the right lower lobe is again identified. There is a central somewhat low density area and the possibility of a necrotic neoplasm or developing lung abscess cannot be excluded. Large pericardial effusion is again identified. Other findings as noted above Modified Barium Swallow 06/11/16 00:00 IMPRESSION: FLASH LARYNGEAL PENETRATION FROM RESIDUALS, WITHOUT ASPIRATION, SEEN WITH PUREED CONSISTENCY.PLEASE SEE SPEECH PATHOLOGIST REPORT FOR OTHER FINDINGS AND RECOMMENDATIONS. Chest X-Ray 06/11/16 06:00 IMPRESSION: NO CHANGE IN APPEARANCE OF THE CHEST Head CT 06/23/16 01:35 IMPRESSION: Prominent relative low density areas in the periventricular white matter in both parietal regions as noted above. Differential possibilities are as noted above. MRI may be of value for further evaluation. Other findings as noted above. Assessment & Plan - Diagnosis (1) Acute hypoxemic respiratory failure Is this a current diagnosis for this admission?: YesPlan: Currently on BiPAP. (2) End stage renal disease Is this a current diagnosis for this admission?: YesPlan: She is undergoing dialysis currently without any issues. She is on a gentle dialysis on low blood flows without any ultrafiltration for 2 hours. Orders were discussed with the treating nurse Gisele. (3) Lung abscess Qualifiers: Pulmonary abscess pneumonia presence: with pneumonia Laterality: right Lung location: unspecified part of lung Qualified Code(s): J85.1 - Abscess of lung with pneumonia Is this a current diagnosis for this admission?: NoPlan: Patient has recovered from septic shock. Patient on antibiotics. (4) Lung cancer Qualifiers: Laterality: unspecified laterality Lung location: unspecified part of lung Qualified Code(s): C34.90 - Malignant neoplasm of unspecified part of unspecified bronchus or lung Is this a current diagnosis for this admission?: YesPlan: Has been seen at [place] multiple times , but has had no definitive treatments done given the very poor prognosis and very poor serious comorbidities. (5) Septic shock Is this a current diagnosis for this admission?: Yes (7) Pulmonary fibrosis Is this a current diagnosis for this admission?: YesPlan: Status quo. (8) Scleroderma Is this a current diagnosis for this admission?: Yes (9) Anemia Plan: Multiple factors including that of chronic kidney disease and her malignancy. Very poor prognosis. Adjust erythropoietin (10) Cardiomyopathy Qualifiers: Cardiomyopathy type: unspecified Qualified Code(s): I42.9 - Cardiomyopathy, unspecified Is this a current diagnosis for this admission?: YesPlan: LV ejection fraction less than 15%. Very poor prognosis. 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 She is also had seizures yesterday suggestive of possible metastasis. However it is so sad that the still want to continue on full court press.
--- NOTE | 2016-06-23 17:55 | PDOC PROGRESS REPORT ---
Subjective Progress Note for:: 06/23/16 Subjective:: Patient had a seizure last night, CT head was done that was abnormal, MRI brain is recommended, MRI brain with contrast to be ordered. DNR status was again revisited but family still insisted the patient should be a full code, this is very unfortunate, this patient need to be hospice at this stage of her disease, the outcome is obvious. She has gangrene of fingers extremely cachectic,hardly able to finish a sentence , extremely poor intake. Physical Exam Vital Signs: Temp Pulse Resp BP Pulse Ox 98.1 F 116 H 15 160/102 H 95 06/23/16 08:00 06/23/16 08:00 06/23/16 16:13 06/23/16 16:13 06/23/16 00:55 Intake & Output 06/22/16 06/23/16 06/24/16 06:59 06:59 06:59 Intake Total 780 3060 Output Total 1900 100 Balance -1120 2960 Weight 51.9 kg 51.9 kg General appearance: PRESENT: thin Eye exam: PRESENT: PERRLA Respiratory exam: PRESENT: crackles Cardiovascular exam: PRESENT: +S1, +S2 Results Laboratory Results: 06/23/16 05:45 06/23/16 05:45 06/23/16 06/23/16 06/23/16 00:45 00:45 05:45 WBC 13.7 H RBC 3.01 L Hgb 8.6 L Hct 27.9 L MCV 93 MCH 28.4 MCHC 30.7 L RDW 17.4 H Plt Count 255 Seg Neutrophils % 69.9 Lymphocytes % 15.4 Monocytes % 10.7 Eosinophils % 3.1 Basophils % 0.9 Absolute Neutrophils 9.6 H Absolute Lymphocytes 2.1 Absolute Monocytes 1.5 H Absolute Eosinophils 0.4 Absolute Basophils 0.1 Carbonic Acid HCO3/H2CO3 Ratio ABG pH ABG pCO2 ABG pO2 ABG HCO3 ABG O2 Saturation ABG Base Excess FiO2 Sodium 130.2 L 128.0 L Potassium 3.9 3.3 L Chloride 96 L 95 L Carbon Dioxide 25 26 Anion Gap 9 7 BUN 11 12 Creatinine 2.91 H 2.94 H Est GFR ( Amer) 21 L 21 L Est GFR (Non-Af Amer) 18 L 18 L Glucose 122 H 111 H Calcium 7.4 L 7.1 L Total Bilirubin 0.6 AST 8 L ALT 16 Alkaline Phosphatase 131 H Total Protein 5.3 L Albumin 2.1 L 06/23/16 06/23/16 05:45 08:00 WBC 10.1 RBC 2.85 L Hgb 8.0 L Hct 25.7 L MCV 90 MCH 28.2 MCHC 31.3 L RDW 17.6 H Plt Count 253 Seg Neutrophils % 79.6 H Lymphocytes % 8.9 L Monocytes % 8.3 Eosinophils % 3.0 Basophils % 0.2 Absolute Neutrophils 8.0 Absolute Lymphocytes 0.9 Absolute Monocytes 0.8 Absolute Eosinophils 0.3 Absolute Basophils 0.0 Carbonic Acid 1.11 HCO3/H2CO3 Ratio 21:1 ABG pH 7.43 ABG pCO2 37.0 ABG pO2 90.0 ABG HCO3 23.8 ABG O2 Saturation 97.1 ABG Base Excess -0.4 FiO2 30% Sodium Potassium Chloride Carbon Dioxide Anion Gap BUN Creatinine Est GFR ( Amer) Est GFR (Non-Af Amer) Glucose Calcium Total Bilirubin AST ALT Alkaline Phosphatase Total Protein Albumin 05/29/16 05/30/16 05/31/16 23:45 05:55 05:15 Creatine Kinase 31 CK-MB (CK-2) 1.81 1.71 Troponin I 0.069 0.094 05/31/16 05:15 Creatine Kinase CK-MB (CK-2) 1.46 Troponin I 0.079 Impressions: Chest/Abdomen CTA 05/29/16 18:00 IMPRESSION: No evidence for pulmonary embolic disease. Extensive chronic appearing changes as noted above. Small right pleural effusion is again identified which appears slightly larger than on the previous study. The previously described rounded masslike density in the right lower lobe is again identified. There is a central somewhat low density area and the possibility of a necrotic neoplasm or developing lung abscess cannot be excluded. Large pericardial effusion is again identified. Other findings as noted above Modified Barium Swallow 06/11/16 00:00 IMPRESSION: FLASH LARYNGEAL PENETRATION FROM RESIDUALS, WITHOUT ASPIRATION, SEEN WITH PUREED CONSISTENCY.PLEASE SEE SPEECH PATHOLOGIST REPORT FOR OTHER FINDINGS AND RECOMMENDATIONS. Chest X-Ray 06/11/16 06:00 IMPRESSION: NO CHANGE IN APPEARANCE OF THE CHEST Head CT 06/23/16 01:35 IMPRESSION: Prominent relative low density areas in the periventricular white matter in both parietal regions as noted above. Differential possibilities are as noted above. MRI may be of value for further evaluation. Other findings as noted above. Assessment & Plan - Diagnosis (1) Acute hypoxemic respiratory failure Is this a current diagnosis for this admission?: Yes (2) Lung cancer Qualifiers: Laterality: unspecified laterality Lung location: unspecified part of lung Qualified Code(s): C34.90 - Malignant neoplasm of unspecified part of unspecified bronchus or lung Is this a current diagnosis for this admission?: Yes (3) Lung abscess Qualifiers: Pulmonary abscess pneumonia presence: with pneumonia Laterality: right Lung location: unspecified part of lung Qualified Code(s): J85.1 - Abscess of lung with pneumonia Is this a current diagnosis for this admission?: No (4) End stage renal disease Is this a current diagnosis for this admission?: Yes (5) Cardiac arrest Is this a current diagnosis for this admission?: Yes (6) Cardiogenic shock Is this a current diagnosis for this admission?: Yes (7) Septic shock Is this a current diagnosis for this admission?: Yes (8) Hypoglycemia Is this a current diagnosis for this admission?: Yes (9) Anorexia Is this a current diagnosis for this admission?: Yes (10) Gangrene of toe Is this a current diagnosis for this admission?: Yes (11) Malignant cachexia Is this a current diagnosis for this admission?: Yes (12) New onset seizure Is this a current diagnosis for this admission?: YesPlan: MRI brain was ordered, loading dose of Keppra
[2016-06-23] MEDS: LEVETIRACETAM 500 MG/NACL-ISO 500 MG/100 ML RTUPB IV SCH (19:56)
[2016-06-23] MEDS: METOPROLOL TARTRATE PF/INJ 5 MG/5 ML SDV IV PRN (21:19)
[2016-06-24] MEDS: DEXTROSE 50%-WATER SYRINGE 25 GM/50 ML DOSE IV PRN ×2 (02:02→07:51)
[2016-06-24] MEDS: MORPHINE SULFATE 10 MG/ML INJ IV PRN (03:14)
--- NOTE | 2016-06-24 03:48 | PROGRESS NOTE E ---
Progress Note NAME: FELISA MILES : 1975 AGE: 40Y DATE: 06/23/2016 ROOM: 320 Note that the patient was seen from 12:20 to 12:45 in the ICU. SUBJECTIVE: Note that the patient early this morning had seizures and then was apneic and also had agonal breathing. A LINE OUT MAN was done on the patient and the patient was transferred to the ICU after a CAT scan of the head. The CAT scan findings are shown below. She was placed on a BiPAP and was transferred to ICU. At present, although, she is very drowsy, she answers questions appropriately when asked. As per the nurse, she was not able to sit up properly in bed and also is not able to swallow much. She does have no PND. There is no leg edema. There is no arrhythmia seen on the monitor. There are no TIA or CVA symptoms. There is no further seizure activity noted. On examination, the patient seems to be a little more deteriorated. The patient still has incurable advanced scleroderma, lung cancer, cachexia, malnutrition, gangrene, and also the patient has had seizures this morning. The etiology of the seizures still needs to be diagnosed. She is tolerating the hydralazine. OBJECTIVE: GENERAL: On examination, at present, the patient is very drowsy and sleepy. The patient seems to be cachectic with incurable advanced scleroderma, lung cancer, cachexia, malnutrition, and gangrene. She appears cachectic and chronically ill. VITAL SIGNS: Earlier, her temperature was 98.1 degrees Fahrenheit this morning. At present, her heart rate is 93 beats per minute, blood pressure is 138/96, and respirations are 19 per minute. On the BiPAP, her O2 sats are 98%. HEENT: Head is atraumatic, normocephalic. Eyes: Pupils are equal, round, regular, reactive to light. Sclerae are without icterus. Conjunctivae are pink. The patient looks very debilitated and cachectic. NECK: Supple without lymphadenopathy. Trachea is central. There is no goiter. Carotids are equal without any bruits. There is no JVD. LUNGS: Show no accessory muscles of respiration use. There are crackles in the bases, which are right. There are no rhonchi or wheezing. HEART: S1 and S2 are heard. There is no S3 gallop. There is no S4 gallop. There is a systolic murmur in the left sternal border at the apex. There is no rub. ABDOMEN: Soft, nontender. Bowel sounds are normal. There is no hepatosplenomegaly. There is rebound, guarding, or rigidity. EXTREMITIES: Pedal pulses are markedly diminished. There is no calf tenderness. Femorals are diminished. There are no femoral bruits. There is no pedal edema. There is no clubbing. There is dry gangrene noted on medial 3 fingers of the left hand, which are slightly worse. In addition, she has dry gangrene of one of the toes of the left foot. NEUROLOGICAL: The patient is awake, very drowsy, but moves all 4 extremities. PSYCHIATRIC: At present, not tested due to the patient's condition. DIAGNOSTIC DATA: Head CT done shows no evidence of any masses or hemorrhage or CVA. There are prominent relatively low density areas in the periventricular white matter in both the parietal regions, which were not present in the previous study. The differential possibilities would include evolving areas of cerebellar infarction versus edema causing these lesions, infectious or inflammatory changes. We have recommended MRI. Otherwise, no other findings. The patient's white count was 10,100 this morning, hemoglobin is still 8, hematocrit is 25.7, and platelet count is 233,000. The patient's sodium is 128, potassium 3.3, chloride is 95, CO2 is 26. The patient's anion gap is 7. The patient's BUN is 12, creatinine is 2.94, GFR is reduced at 21 mL, glucose is 97, and calcium is low at 7.1. Her liver function tests except for a low AST, high alkaline phosphatase, the liver function tests are normal. The patient's albumin is 2.1, total protein is 5.3. IMPRESSION: 1. New onset seizures? etiology. We have recommended an MRI for lesions, for which various etiologies and differential diagnosis has been made by the radiologist. 2. Acute hypoxemic respiratory failure, improved, but still the patient requires BiPAP every now and then. Note that the patient also has advanced scleroderma and lung cancer and pulmonary fibrosis. 3. End-stage/stage IV renal disease, on hemodialysis. The patient later today will have a short course of hemodialysis. 4. Lung cancer, unspecified part of the lung, seems to be stable. 5. Status post septic shock. At present, blood pressure is on the higher side. The patient is discharged on hydralazine along with lisinopril and Coreg. 6. Pulmonary fibrosis, which seems to be not treatable. 7. Scleroderma, seems to be advanced stage. 8. Cardiomyopathy with severely reduced LV ejection fraction of less than 20%, at present on Coreg, lisinopril, and hydralazine. This may be related to her scleroderma causing cardiomyopathy. 9. Hoarseness of voice and difficulty swallowing. The patient and her have still not decided about PEG tube. 10. Dry gangrene of the medial 3 fingers of the left hand and also toes of the left foot, seems to be worsening. RECOMMENDATIONS: As mentioned earlier, in addition due to the patient not being able to swallow well, we will not increase the patient's hydralazine at present. The patient's prognosis is poor. Attempts should be made to discuss with the patient and the patient's to make the patient comfort care since I see that she is suffering a lot, but the patient and the patient's are very adamant to have the patient on a full code. We will honor their wishes. The attending physician, Dr. Spears and the sr vice president will decide about the MRI. DICTATING PHYSICIAN: LAURA TOVAR M.D. [id number] FRANDY#: [id number] ID: [id number] JOB#: [id number] ACCT: [id number] cc: >
[2016-06-24] MEDS: HEPARIN SOD (PORCINE) 5,000 UNIT/ML 1 ML SYRINGE SUBCUT SCH ×3 (05:47→22:21)
[2016-06-24] MEDS: HYDRALAZINE HCL 10 MG TABLET PO SCH ×3 (05:48→22:23)
[2016-06-24] MEDS: DEXTROSE 50%-WATER 25 GM/50 ML DISP.SYRIN IV PRN ×5 (08:23→20:44)
[2016-06-24] MEDS: LEVETIRACETAM 500 MG/NACL-ISO 500 MG/100 ML RTUPB IV SCH ×2 (10:19→20:19)
[2016-06-24] MEDS: NYSTATIN/DEXAMETH/DIPHEN SUSP 120 ML PO SCH ×4 (11:03→22:23)
[2016-06-24] MEDS: CARVEDILOL 12.5 MG TABLET PO SCH ×2 (11:03→22:23)
[2016-06-24] MEDS: LISINOPRIL 10 MG TABLET PO SCH ×2 (11:03→22:23)
[2016-06-24] MEDS: NYSTATIN TOPICAL POWDER 15 GM TP SCH ×2 (11:03→18:09)
[2016-06-24] MEDS: MEGESTROL ACETATE SUSP 400 MG/10 ML UDCUP PO SCH (11:03)
[2016-06-24] MEDS: CILOSTAZOL 100 MG TABLET PO SCH ×2 (11:03→16:55)
--- NOTE | 2016-06-24 12:04 | PDOC PROGRESS REPORT ---
Subjective Progress Note for:: 06/24/16 Subjective:: Patient was seen in the hospital this morning. Her is by her bedside. Patient is extremely weak and quite minimally responsive. I did discuss with Idalia who is her treating nurse. Patient has been going into severe hypoglycemia on Accu-Cheks in spite of running D10. She has had already 2 A of D50 in the past 1 hour according to Idalia. No history of any seizures. Patient has not been eating or drinking any since the last 24 hours. I also did talk with the . Physical Exam Vital Signs: Temp Pulse Resp BP Pulse Ox 98.5 F 75 12 94/72 L 98 06/24/16 07:39 06/24/16 03:56 06/24/16 08:00 06/24/16 07:39 06/24/16 08:00 Intake & Output 06/23/16 06/24/16 06/25/16 06:59 06:59 06:59 Intake Total 3060 410 Output Total 100 0 Balance 2960 410 Weight 51.9 kg 54.5 kg Exam: Patient is lying in bed with BiPAP. She is very minimally responsive to questions. Her blood sugars currently are good on Accu-Cheks as per discussion with the treating nurse Idalia. Respiratory exam: PRESENT: clear to auscultation frankie, crackles, decreased breath sounds. ABSENT: stridor Cardiovascular exam: PRESENT: +S1, +S2, systolic murmur GI/Abdominal exam: PRESENT: normal bowel sounds, soft. ABSENT: distended, firm , tenderness Extremities exam: ABSENT: pedal edema Musculoskeletal exam: PRESENT: other - Worsening dry gangrene in both hands Results Laboratory Results: 06/23/16 05:45 06/23/16 05:45 05/29/16 05/30/16 05/31/16 23:45 05:55 05:15 Creatine Kinase 31 CK-MB (CK-2) 1.81 1.71 Troponin I 0.069 0.094 05/31/16 05:15 Creatine Kinase CK-MB (CK-2) 1.46 Troponin I 0.079 Impressions: Chest/Abdomen CTA 05/29/16 18:00 IMPRESSION: No evidence for pulmonary embolic disease. Extensive chronic appearing changes as noted above. Small right pleural effusion is again identified which appears slightly larger than on the previous study. The previously described rounded masslike density in the right lower lobe is again identified. There is a central somewhat low density area and the possibility of a necrotic neoplasm or developing lung abscess cannot be excluded. Large pericardial effusion is again identified. Other findings as noted above Modified Barium Swallow 06/11/16 00:00 IMPRESSION: FLASH LARYNGEAL PENETRATION FROM RESIDUALS, WITHOUT ASPIRATION, SEEN WITH PUREED CONSISTENCY.PLEASE SEE SPEECH PATHOLOGIST REPORT FOR OTHER FINDINGS AND RECOMMENDATIONS. Chest X-Ray 06/11/16 06:00 IMPRESSION: NO CHANGE IN APPEARANCE OF THE CHEST Head CT 06/23/16 01:35 IMPRESSION: Prominent relative low density areas in the periventricular white matter in both parietal regions as noted above. Differential possibilities are as noted above. MRI may be of value for further evaluation. Other findings as noted above. Assessment & Plan - Diagnosis (1) Acute hypoxemic respiratory failure Is this a current diagnosis for this admission?: YesPlan: Patient currently on BiPAP. (2) End stage renal disease Is this a current diagnosis for this admission?: YesPlan: Plan for gentle dialysis in the ICU tomorrow morning. Orders have been placed. I am out of town for the next [address] Al will be calling me in my absence. (3) Lung abscess Qualifiers: Pulmonary abscess pneumonia presence: with pneumonia Laterality: right Lung location: unspecified part of lung Qualified Code(s): J85.1 - Abscess of lung with pneumonia Is this a current diagnosis for this admission?: NoPlan: Patient has recovered from septic shock. Patient on antibiotics. (4) Lung cancer Qualifiers: Laterality: unspecified laterality Lung location: unspecified part of lung Qualified Code(s): C34.90 - Malignant neoplasm of unspecified part of unspecified bronchus or lung Is this a current diagnosis for this admission?: YesPlan: Has been seen at [facility] multiple times , but has had no definitive treatments done given the very poor prognosis and very poor serious comorbidities.She had a CT scan of the brain done post seizures that shows high likelihood of metastasis.Discussed with the about the very poor prognosis and the given stage. However he wants everything done and wants natural course to take effect. He also wants dialysis as tolerated. (5) Septic shock Is this a current diagnosis for this admission?: Yes (7) Pulmonary fibrosis Is this a current diagnosis for this admission?: Yes (8) Scleroderma Is this a current diagnosis for this admission?: Yes (10) Cardiomyopathy Qualifiers: Cardiomyopathy type: unspecified Qualified Code(s): I42.9 - Cardiomyopathy, unspecified Is this a current diagnosis for this admission?: YesPlan: LV ejection fraction less than 15%. Very poor prognosis. (11) Malignant cachexia Is this a current diagnosis for this admission?: YesPlan: Lung cancer with spread. She is also had seizures and CT of the brain is highly suggestive of metastasis. (12) Hypoglycemia Is this a current diagnosis for this admission?: YesPlan: Is getting severe in spite of she having D10 on a continuous drip. She has already been given D50 2 amps. Discussed with Idalia the treating nurse to discuss with Dr. Donato if he would like to have D 50 as a continuous drip. Discussed with the about the futility of further treatment and about putting his into hospice and comfort care. However he does not want that to happen. It is a sad situation.
[2016-06-24] MEDS: LORAZEPAM INJ 2 MG/1 ML VIAL IV PRN (12:41)
--- NOTE | 2016-06-24 14:58 | PDOC PROGRESS REPORT ---
Subjective Progress Note for:: 06/23/16 Subjective:: lethargic;disoriented Physical Exam Vital Signs: Temp Pulse Resp BP Pulse Ox 97.9 F 93 18 130/79 H 95 06/23/16 04:29 06/23/16 07:00 06/23/16 04:29 06/23/16 04:29 06/23/16 00:55 Intake & Output 06/22/16 06/23/16 06/24/16 06:59 06:59 06:59 Intake Total 780 3060 Output Total 1900 100 Balance -1120 2960 Weight 51.9 kg 51.9 kg General appearance: PRESENT: disheveled, other - Cachectic Head exam: PRESENT: atraumatic, normocephalic Eye exam: PRESENT: conjunctiva pale Mouth exam: PRESENT: dry mucosa Neck exam: ABSENT: carotid bruit, JVD, lymphadenopathy, thyromegaly Respiratory exam: PRESENT: decreased breath sounds, prolonged expiratory phas, rales, rhonchi, symmetrical, unlabored Cardiovascular exam: PRESENT: irregular rhythm GI/Abdominal exam: PRESENT: normal bowel sounds, soft. ABSENT: distended, guarding, mass, organolmegaly, rebound, tenderness Rectal exam: PRESENT: deferred Gentrourinary exam: PRESENT: indwelling catheter Skin exam: PRESENT: dry, warm Results Laboratory Results: 06/23/16 05:45 06/23/16 05:45 06/23/16 06/23/16 06/23/16 00:45 00:45 05:45 WBC 13.7 H RBC 3.01 L Hgb 8.6 L Hct 27.9 L MCV 93 MCH 28.4 MCHC 30.7 L RDW 17.4 H Plt Count 255 Seg Neutrophils % 69.9 Lymphocytes % 15.4 Monocytes % 10.7 Eosinophils % 3.1 Basophils % 0.9 Absolute Neutrophils 9.6 H Absolute Lymphocytes 2.1 Absolute Monocytes 1.5 H Absolute Eosinophils 0.4 Absolute Basophils 0.1 Carbonic Acid HCO3/H2CO3 Ratio ABG pH ABG pCO2 ABG pO2 ABG HCO3 ABG O2 Saturation ABG Base Excess FiO2 Sodium 130.2 L 128.0 L Potassium 3.9 3.3 L Chloride 96 L 95 L Carbon Dioxide 25 26 Anion Gap 9 7 BUN 11 12 Creatinine 2.91 H 2.94 H Est GFR ( Amer) 21 L 21 L Est GFR (Non-Af Amer) 18 L 18 L Glucose 122 H 111 H Calcium 7.4 L 7.1 L Total Bilirubin 0.6 AST 8 L ALT 16 Alkaline Phosphatase 131 H Total Protein 5.3 L Albumin 2.1 L 06/23/16 06/23/16 05:45 08:00 WBC 10.1 RBC 2.85 L Hgb 8.0 L Hct 25.7 L MCV 90 MCH 28.2 MCHC 31.3 L RDW 17.6 H Plt Count 253 Seg Neutrophils % 79.6 H Lymphocytes % 8.9 L Monocytes % 8.3 Eosinophils % 3.0 Basophils % 0.2 Absolute Neutrophils 8.0 Absolute Lymphocytes 0.9 Absolute Monocytes 0.8 Absolute Eosinophils 0.3 Absolute Basophils 0.0 Carbonic Acid 1.11 HCO3/H2CO3 Ratio 21:1 ABG pH 7.43 ABG pCO2 37.0 ABG pO2 90.0 ABG HCO3 23.8 ABG O2 Saturation 97.1 ABG Base Excess -0.4 FiO2 30% Sodium Potassium Chloride Carbon Dioxide Anion Gap BUN Creatinine Est GFR ( Amer) Est GFR (Non-Af Amer) Glucose Calcium Total Bilirubin AST ALT Alkaline Phosphatase Total Protein Albumin 05/29/16 05/30/16 05/31/16 23:45 05:55 05:15 Creatine Kinase 31 CK-MB (CK-2) 1.81 1.71 Troponin I 0.069 0.094 05/31/16 05:15 Creatine Kinase CK-MB (CK-2) 1.46 Troponin I 0.079 Impressions: Chest/Abdomen CTA 05/29/16 18:00 IMPRESSION: No evidence for pulmonary embolic disease. Extensive chronic appearing changes as noted above. Small right pleural effusion is again identified which appears slightly larger than on the previous study. The previously described rounded masslike density in the right lower lobe is again identified. There is a central somewhat low density area and the possibility of a necrotic neoplasm or developing lung abscess cannot be excluded. Large pericardial effusion is again identified. Other findings as noted above Modified Barium Swallow 06/11/16 00:00 IMPRESSION: FLASH LARYNGEAL PENETRATION FROM RESIDUALS, WITHOUT ASPIRATION, SEEN WITH PUREED CONSISTENCY.PLEASE SEE SPEECH PATHOLOGIST REPORT FOR OTHER FINDINGS AND RECOMMENDATIONS. Chest X-Ray 06/11/16 06:00 IMPRESSION: NO CHANGE IN APPEARANCE OF THE CHEST Head CT 06/23/16 01:35 IMPRESSION: Prominent relative low density areas in the periventricular white matter in both parietal regions as noted above. Differential possibilities are as noted above. MRI may be of value for further evaluation. Other findings as noted above. Assessment & Plan - Diagnosis (1) Acute hypoxemic respiratory failure Is this a current diagnosis for this admission?: Yes (2) End stage renal disease Is this a current diagnosis for this admission?: Yes (3) Lung abscess Qualifiers: Pulmonary abscess pneumonia presence: with pneumonia Laterality: right Lung location: unspecified part of lung Qualified Code(s): J85.1 - Abscess of lung with pneumonia Is this a current diagnosis for this admission?: No (4) Lung cancer Qualifiers: Laterality: unspecified laterality Lung location: unspecified part of lung Qualified Code(s): C34.90 - Malignant neoplasm of unspecified part of unspecified bronchus or lung Is this a current diagnosis for this admission?: YesPlan: Patient had seizures within the last [address] implies patient has brain metastasis (5) Scleroderma Is this a current diagnosis for this admission?: Yes
--- NOTE | 2016-06-24 15:04 | PDOC PROGRESS REPORT ---
Subjective Progress Note for:: 06/24/16 Subjective:: Lethargic minimally responsive Physical Exam Vital Signs: Temp Pulse Resp BP Pulse Ox 98.5 F 75 12 94/72 L 98 06/24/16 07:39 06/24/16 03:56 06/24/16 08:00 06/24/16 07:39 06/24/16 08:00 Intake & Output 06/23/16 06/24/16 06/25/16 06:59 06:59 06:59 Intake Total 3060 410 Output Total 100 0 Balance 2960 410 Weight 51.9 kg 54.5 kg General appearance: PRESENT: no acute distress, disheveled, other - Cachectic Head exam: PRESENT: atraumatic, normocephalic Eye exam: PRESENT: conjunctiva pale, EOMI Mouth exam: PRESENT: dry mucosa Neck exam: ABSENT: carotid bruit, JVD, lymphadenopathy, thyromegaly Respiratory exam: PRESENT: decreased breath sounds, prolonged expiratory phas, rales, rhonchi, symmetrical, unlabored Cardiovascular exam: PRESENT: irregular rhythm Pulses: PRESENT: normal radial pulses GI/Abdominal exam: PRESENT: normal bowel sounds, soft. ABSENT: distended, guarding, mass, organolmegaly, rebound, tenderness Rectal exam: PRESENT: deferred Gentrourinary exam: PRESENT: indwelling catheter Extremities exam: PRESENT: other - Ischemic to distal tips of toes and fingers Neurological exam: PRESENT: awake Skin exam: PRESENT: dry Results Laboratory Results: 06/23/16 05:45 06/23/16 05:45 05/29/16 05/30/16 05/31/16 23:45 05:55 05:15 Creatine Kinase 31 CK-MB (CK-2) 1.81 1.71 Troponin I 0.069 0.094 05/31/16 05:15 Creatine Kinase CK-MB (CK-2) 1.46 Troponin I 0.079 Impressions: Chest/Abdomen CTA 05/29/16 18:00 IMPRESSION: No evidence for pulmonary embolic disease. Extensive chronic appearing changes as noted above. Small right pleural effusion is again identified which appears slightly larger than on the previous study. The previously described rounded masslike density in the right lower lobe is again identified. There is a central somewhat low density area and the possibility of a necrotic neoplasm or developing lung abscess cannot be excluded. Large pericardial effusion is again identified. Other findings as noted above Modified Barium Swallow 06/11/16 00:00 IMPRESSION: FLASH LARYNGEAL PENETRATION FROM RESIDUALS, WITHOUT ASPIRATION, SEEN WITH PUREED CONSISTENCY.PLEASE SEE SPEECH PATHOLOGIST REPORT FOR OTHER FINDINGS AND RECOMMENDATIONS. Chest X-Ray 06/11/16 06:00 IMPRESSION: NO CHANGE IN APPEARANCE OF THE CHEST Head CT 06/23/16 01:35 IMPRESSION: Prominent relative low density areas in the periventricular white matter in both parietal regions as noted above. Differential possibilities are as noted above. MRI may be of value for further evaluation. Other findings as noted above. Head MRI 06/24/16 00:00 IMPRESSION: SEVERAL LOCULATED CYSTIC LESIONS IN THE CEREBRAL HEMISPHERES BILATERALLY WITH ASSOCIATED VASOGENIC EDEMA IN THE WHITE MATTER. THIS CONDITION APPEARS TO HAVE DEVELOPED FAIRLY RAPIDLY BASED ON A NORMAL HEAD CT ON 05/18/2016. FINDINGS MAY BE DUE TO INFECTIOUS ETIOLOGY, POSSIBLE ATYPICAL ORGANISM, WITH DEVELOPMENT OF BRAIN ABSCESSES. ACUTE INFLAMMATORY PROCESS COULD BE ANOTHER POSSIBILITY. MALIGNANCY SUCH METASTATIC DISEASE IS LESS LIKELY. Assessment & Plan - Diagnosis (1) Acute hypoxemic respiratory failure Is this a current diagnosis for this admission?: Yes (2) End stage renal disease Is this a current diagnosis for this admission?: Yes (3) Lung abscess Qualifiers: Pulmonary abscess pneumonia presence: with pneumonia Laterality: right Lung location: unspecified part of lung Qualified Code(s): J85.1 - Abscess of lung with pneumonia Is this a current diagnosis for this admission?: No (4) Lung cancer Qualifiers: Laterality: unspecified laterality Lung location: unspecified part of lung Qualified Code(s): C34.90 - Malignant neoplasm of unspecified part of unspecified bronchus or lung Is this a current diagnosis for this admission?: YesPlan: Abnormal CT scan followed by abnormal MRI differential diagnosis is expanded to but possible infection process versus ischemic change versus metastatic disease (5) Scleroderma Is this a current diagnosis for this admission?: Yes - Time Time Spent with patient: 35 or more minutes - 50 minutes - Plan Summary Plan Summary: Extensive talk with Dr. Alaniz, nurse Friedman and patient's spouse about the progressively declining status and our increasing inability to make meaningful interventions
--- NOTE | 2016-06-24 18:49 | PDOC PROGRESS REPORT ---
Subjective Progress Note for:: 06/24/16 Subjective:: Patient's condition is very poor, MRI brain without contrast was done today, it showed complex cystic lesions in the superior cerebral hemispheres, one on the right side and 2 on the left side. The lesion in the right cerebral hemisphere consists of several loculated cystic areas that measure 2 x 2.5 cm. 2 lesions in the left cerebral hemisphere also composed of lobulated cystic lesions that measures 1.5 cm all 3 areas of involvement demonstrate abnormal white matter signal consistent adjacent vasogenic edema. I discussed this findings with patient's family, the findings suggest cerebral abscess but metastatic disease cannot be completely rule out. I gave family the option of transfer to tertiary care but he declined the option, patient will be made DNR status we be treated medically with IV antibiotic. Family is in agreement with DNR status, overall prognosis is extremely poor in this patient. She also had persistent hypoglycemia despite continuous IV 10% dextrose and she is also dependent on BiPAP to support breathing. The initial plan was for PEG tube to be inserted but that is on hold . Physical Exam Vital Signs: Temp Pulse Resp BP Pulse Ox 98.5 F 82 14 139/93 H 100 06/24/16 15:50 06/24/16 15:50 06/24/16 16:00 06/24/16 15:50 06/24/16 16:00 Intake & Output 06/23/16 06/24/16 06/25/16 06:59 06:59 06:59 Intake Total 3060 410 0 Output Total 100 0 Balance 2960 410 0 Weight 51.9 kg 54.5 kg General appearance: PRESENT: thin Head exam: PRESENT: other - She is on positive pressure ventilation, noninvasive , BiPAP machine Eye exam: PRESENT: conjunctiva pale Respiratory exam: PRESENT: crackles Cardiovascular exam: PRESENT: +S1, +S2 GI/Abdominal exam: PRESENT: soft Neurological exam: PRESENT: alert Results Laboratory Results: 06/23/16 05:45 06/23/16 05:45 05/29/16 05/30/16 05/31/16 23:45 05:55 05:15 Creatine Kinase 31 CK-MB (CK-2) 1.81 1.71 Troponin I 0.069 0.094 05/31/16 05:15 Creatine Kinase CK-MB (CK-2) 1.46 Troponin I 0.079 Impressions: Chest/Abdomen CTA 05/29/16 18:00 IMPRESSION: No evidence for pulmonary embolic disease. Extensive chronic appearing changes as noted above. Small right pleural effusion is again identified which appears slightly larger than on the previous study. The previously described rounded masslike density in the right lower lobe is again identified. There is a central somewhat low density area and the possibility of a necrotic neoplasm or developing lung abscess cannot be excluded. Large pericardial effusion is again identified. Other findings as noted above Modified Barium Swallow 06/11/16 00:00 IMPRESSION: FLASH LARYNGEAL PENETRATION FROM RESIDUALS, WITHOUT ASPIRATION, SEEN WITH PUREED CONSISTENCY.PLEASE SEE SPEECH PATHOLOGIST REPORT FOR OTHER FINDINGS AND RECOMMENDATIONS. Chest X-Ray 06/11/16 06:00 IMPRESSION: NO CHANGE IN APPEARANCE OF THE CHEST Head CT 06/23/16 01:35 IMPRESSION: Prominent relative low density areas in the periventricular white matter in both parietal regions as noted above. Differential possibilities are as noted above. MRI may be of value for further evaluation. Other findings as noted above. Head MRI 06/24/16 00:00 IMPRESSION: SEVERAL LOCULATED CYSTIC LESIONS IN THE CEREBRAL HEMISPHERES BILATERALLY WITH ASSOCIATED VASOGENIC EDEMA IN THE WHITE MATTER. THIS CONDITION APPEARS TO HAVE DEVELOPED FAIRLY RAPIDLY BASED ON A NORMAL HEAD CT ON 05/18/2016. FINDINGS MAY BE DUE TO INFECTIOUS ETIOLOGY, POSSIBLE ATYPICAL ORGANISM, WITH DEVELOPMENT OF BRAIN ABSCESSES. ACUTE INFLAMMATORY PROCESS COULD BE ANOTHER POSSIBILITY. MALIGNANCY SUCH METASTATIC DISEASE IS LESS LIKELY. Assessment & Plan - Diagnosis (1) Acute hypoxemic respiratory failure Is this a current diagnosis for this admission?: Yes (2) Lung cancer Qualifiers: Laterality: unspecified laterality Lung location: unspecified part of lung Qualified Code(s): C34.90 - Malignant neoplasm of unspecified part of unspecified bronchus or lung Is this a current diagnosis for this admission?: Yes (3) Lung abscess Qualifiers: Pulmonary abscess pneumonia presence: with pneumonia Laterality: right Lung location: unspecified part of lung Qualified Code(s): J85.1 - Abscess of lung with pneumonia Is this a current diagnosis for this admission?: No (4) End stage renal disease Is this a current diagnosis for this admission?: Yes (5) Cardiac arrest Is this a current diagnosis for this admission?: Yes (6) Cardiogenic shock Is this a current diagnosis for this admission?: Yes (7) Septic shock Is this a current diagnosis for this admission?: Yes (8) Hypoglycemia Is this a current diagnosis for this admission?: Yes (9) Anorexia Is this a current diagnosis for this admission?: Yes (10) Gangrene of toe Is this a current diagnosis for this admission?: Yes (11) Malignant cachexia Is this a current diagnosis for this admission?: Yes (12) New onset seizure Is this a current diagnosis for this admission?: Yes (13) Cerebral abscess Is this a current diagnosis for this admission?: YesPlan: She probably have a cerebral abscess, should be treated with IV antibiotic to cover anaerobes, gram-negative and MRSA empirically patient DNR status prognosis is extremely poor
[2016-06-24] MEDS ORDERED: VANCOMYCIN HCL 0 MG in DEXTROSE 5%-WATER 250 ML IV NR (19:00)
[2016-06-24] MEDS ORDERED: DEXAMETHASONE SOD PHOSPHATE INJ 4 MG/1 ML VIAL IV ONE (19:00)
[2016-06-24] MEDS ORDERED: METRONIDAZOLE 500 MG/NS RTU 100 ML IV ONE (19:00)
[2016-06-24] MEDS ORDERED: DEXAMETHASONE SOD PHOSPHATE INJ 4 MG/1 ML VIAL IV SCH ×2 (20:00→22:00)
[2016-06-24] MEDS: VANCOMYCIN HCL 750 MG in DEXTROSE 5%-WATER 250 ML IV SCH (22:20)
[2016-06-24] MEDS: PIPERACILLIN SODIUM/TAZOBACTAM 2.25 GM in NORMAL SALINE 50 ML IV SCH (22:20)
[2016-06-25] MEDS ORDERED: PIPERACILLIN SODIUM/TAZOBACTAM 2.25 GM in NORMAL SALINE 50 ML IV SCH ×2
[2016-06-25] MEDS: METRONIDAZOLE 500 MG/NS RTU 100 ML IV SCH ×5 (00:54→23:23)
[2016-06-25] MEDS ORDERED: EPOETIN ALFA INJ 20000 UNIT/1 ML VIAL (RENAL) IV PRN (05:00)
[2016-06-25] MEDS: MORPHINE SULFATE 10 MG/ML INJ IV PRN ×3 (05:15→17:36)
[2016-06-25] MEDS: HEPARIN SOD (PORCINE) 5,000 UNIT/ML 1 ML SYRINGE SUBCUT SCH ×3 (05:16→21:12)
[2016-06-25] MEDS: HYDRALAZINE HCL 10 MG TABLET PO SCH ×3 (05:17→21:14)
[2016-06-25 06:17] LABS: HEMATOCRIT 27.2 % (36.0-47.0); HEMOGLOBIN 8.7 g/dL (12.0-15.5); HGB HCT DIFFERENCE -1.1; MEAN CORPUSCULAR HEMOGLOBIN 28.5 pg (27.0-33.4); MEAN CORPUSCULAR HGB CONC 32.2 g/dL (32.0-36.0); MEAN CORPUSCULAR VOLUME 89 fl (80-97); RED BLOOD COUNT 3.07 10^6/uL (3.72-5.28)
[2016-06-25 06:32] LABS: ANION GAP 8 (5-19); BLOOD UREA NITROGEN 10 mg/dL (7-20); CALCIUM 7.2 mg/dL (8.4-10.2); CARBON DIOXIDE 25 mmol/L (22-30); CHLORIDE 98 mmol/L (98-107); CREATININE RESULT 2.69 mg/dL (0.52-1.25); GLUCOSE 114 mg/dL (75-110); POTASSIUM 3.5 mmol/L (3.6-5.0); SODIUM 131.4 mmol/L (137-145)
[2016-06-25 06:50] LABS: BAND NEUTROPHILS % (MANUAL) 1 % (3-5); BASOPHILS % (MANUAL) 0 % (0-2); EOSINOPHILS % (MANUAL) 0 % (0-6); LYMPHOCYTES % (MANUAL) 9 % (13-45); TOTAL CELLS COUNTED 100
[2016-06-25 06:52] LABS: ANISOCYTOSIS 1+; BURR CELLS 1+; HYPOCHROMASIA SLIGHT; OVALOCYTES SLIGHT; POIKILOCYTOSIS 1+; POLYCHROMASIA SLIGHT; SCHISTOCYTES SLIGHT; TEAR DROP CELLS SLIGHT; TOXIC GRANULATION SLIGHT
[2016-06-25] MEDS: CILOSTAZOL 100 MG TABLET PO SCH ×2 (07:41→16:46)
[2016-06-25] MEDS: DEXAMETHASONE SOD PHOSPHATE INJ 4 MG/1 ML VIAL IV SCH ×2 (07:41→20:22)
[2016-06-25] MEDS: LEVETIRACETAM 500 MG/NACL-ISO 500 MG/100 ML RTUPB IV SCH ×2 (07:41→20:21)
[2016-06-25] MEDS: NYSTATIN TOPICAL POWDER 15 GM TP SCH ×2 (09:27→17:34)
[2016-06-25] MEDS: PIPERACILLIN SODIUM/TAZOBACTAM 2.25 GM in NORMAL SALINE 50 ML IV SCH ×2 (09:30→21:12)
[2016-06-25] MEDS: NYSTATIN/DEXAMETH/DIPHEN SUSP 120 ML PO SCH ×4 (09:31→21:14)
[2016-06-25] MEDS: CARVEDILOL 12.5 MG TABLET PO SCH ×2 (09:31→21:14)
[2016-06-25] MEDS: LISINOPRIL 10 MG TABLET PO SCH ×2 (09:31→21:14)
[2016-06-25] MEDS: MEGESTROL ACETATE SUSP 400 MG/10 ML UDCUP PO SCH (09:31)
--- NOTE | 2016-06-25 10:06 | PDOC PROGRESS REPORT ---
Subjective Progress Note for:: 06/25/16 Subjective:: c/o pain in abdomen lethargic Physical Exam Vital Signs: Temp Pulse Resp BP Pulse Ox 97.5 F 84 18 138/104 H 88 L 06/25/16 07:41 06/25/16 07:00 06/25/16 07:41 06/25/16 07:41 06/25/16 04:53 Intake & Output 06/24/16 06/25/16 06/26/16 06:59 06:59 06:59 Intake Total 410 1747 Output Total 0 0 Balance 410 1747 Weight 54.5 kg 58 kg General appearance: PRESENT: disheveled, mild distress, other - Cachectic Head exam: PRESENT: atraumatic, normocephalic Eye exam: PRESENT: conjunctiva pale, EOMI Mouth exam: PRESENT: dry mucosa, neck supple Neck exam: ABSENT: carotid bruit, JVD, lymphadenopathy, thyromegaly Respiratory exam: PRESENT: decreased breath sounds, prolonged expiratory phas, rales, rhonchi, symmetrical, unlabored Cardiovascular exam: PRESENT: RRR, +S1, +S2 Pulses: PRESENT: normal radial pulses GI/Abdominal exam: PRESENT: normal bowel sounds, soft. ABSENT: distended, guarding, mass, organolmegaly, rebound, tenderness Rectal exam: PRESENT: deferred Musculoskeletal exam: PRESENT: normal inspection Neurological exam: PRESENT: awake Skin exam: PRESENT: dry, warm Results Laboratory Results: 06/25/16 05:30 06/25/16 05:30 06/25/16 06/25/16 05:30 05:30 WBC 10.0 RBC 3.07 L Hgb 8.7 L Hct 27.2 L MCV 89 MCH 28.5 MCHC 32.2 RDW 17.0 H Plt Count 260 Seg Neutrophils % Not Reportable Lymphocytes % Not Reportable Monocytes % Not Reportable Eosinophils % Not Reportable Basophils % Not Reportable Absolute Neutrophils Not Reportable Absolute Lymphocytes Not Reportable Absolute Monocytes Not Reportable Absolute Eosinophils Not Reportable Absolute Basophils Not Reportable Sodium 131.4 L Potassium 3.5 L Chloride 98 Carbon Dioxide 25 Anion Gap 8 BUN 10 Creatinine 2.69 H Est GFR ( Amer) 23 L Est GFR (Non-Af Amer) 19 L Glucose 114 H Calcium 7.2 L 05/29/16 05/30/16 05/31/16 23:45 05:55 05:15 Creatine Kinase 31 CK-MB (CK-2) 1.81 1.71 Troponin I 0.069 0.094 05/31/16 05:15 Creatine Kinase CK-MB (CK-2) 1.46 Troponin I 0.079 Impressions: Chest/Abdomen CTA 05/29/16 18:00 IMPRESSION: No evidence for pulmonary embolic disease. Extensive chronic appearing changes as noted above. Small right pleural effusion is again identified which appears slightly larger than on the previous study. The previously described rounded masslike density in the right lower lobe is again identified. There is a central somewhat low density area and the possibility of a necrotic neoplasm or developing lung abscess cannot be excluded. Large pericardial effusion is again identified. Other findings as noted above Modified Barium Swallow 06/11/16 00:00 IMPRESSION: FLASH LARYNGEAL PENETRATION FROM RESIDUALS, WITHOUT ASPIRATION, SEEN WITH PUREED CONSISTENCY.PLEASE SEE SPEECH PATHOLOGIST REPORT FOR OTHER FINDINGS AND RECOMMENDATIONS. Chest X-Ray 06/11/16 06:00 IMPRESSION: NO CHANGE IN APPEARANCE OF THE CHEST Head CT 06/23/16 01:35 IMPRESSION: Prominent relative low density areas in the periventricular white matter in both parietal regions as noted above. Differential possibilities are as noted above. MRI may be of value for further evaluation. Other findings as noted above. Head MRI 06/24/16 00:00 IMPRESSION: SEVERAL LOCULATED CYSTIC LESIONS IN THE CEREBRAL HEMISPHERES BILATERALLY WITH ASSOCIATED VASOGENIC EDEMA IN THE WHITE MATTER. THIS CONDITION APPEARS TO HAVE DEVELOPED FAIRLY RAPIDLY BASED ON A NORMAL HEAD CT ON 05/18/2016. FINDINGS MAY BE DUE TO INFECTIOUS ETIOLOGY, POSSIBLE ATYPICAL ORGANISM, WITH DEVELOPMENT OF BRAIN ABSCESSES. ACUTE INFLAMMATORY PROCESS COULD BE ANOTHER POSSIBILITY. MALIGNANCY SUCH METASTATIC DISEASE IS LESS LIKELY. Assessment & Plan - Diagnosis (1) Acute hypoxemic respiratory failure Is this a current diagnosis for this admission?: Yes (2) End stage renal disease Is this a current diagnosis for this admission?: Yes (3) Lung abscess Qualifiers: Pulmonary abscess pneumonia presence: with pneumonia Laterality: right Lung location: unspecified part of lung Qualified Code(s): J85.1 - Abscess of lung with pneumonia Is this a current diagnosis for this admission?: No (4) Lung cancer Qualifiers: Laterality: unspecified laterality Lung location: unspecified part of lung Qualified Code(s): C34.90 - Malignant neoplasm of unspecified part of unspecified bronchus or lung Is this a current diagnosis for this admission?: Yes (5) Scleroderma Is this a current diagnosis for this admission?: Yes
[2016-06-25] MEDS: DEXTROSE 50%-WATER 25 GM/50 ML DISP.SYRIN IV PRN ×5 (12:16→23:24)
--- NOTE | 2016-06-25 18:43 | PDOC PROGRESS REPORT ---
Subjective Progress Note for:: 06/25/16 Subjective:: Patient is more alert and awake compared to yesterday, she was diagnosed with supposedly cerebral abscess yesterday and she is on IV antibiotic including Zosyn, vancomycin, and Flagyl, she had hemodialysis today. She complain of pain affecting the gangrenous fingers Physical Exam Vital Signs: Temp Pulse Resp BP Pulse Ox 98.2 F 84 15 130/107 H 88 L 06/25/16 11:44 06/25/16 10:00 06/25/16 11:44 06/25/16 11:44 06/25/16 04:53 Intake & Output 06/24/16 06/25/16 06/26/16 06:59 06:59 06:59 Intake Total 410 1747 760 Output Total 0 0 500 Balance 410 1747 260 Weight 54.5 kg 58 kg General appearance: PRESENT: no acute distress Eye exam: PRESENT: PERRLA Respiratory exam: PRESENT: clear to auscultation frankie Cardiovascular exam: PRESENT: +S1, +S2 GI/Abdominal exam: PRESENT: soft Neurological exam: PRESENT: alert Results Laboratory Results: 06/25/16 05:30 06/25/16 05:30 06/25/16 06/25/16 05:30 05:30 WBC 10.0 RBC 3.07 L Hgb 8.7 L Hct 27.2 L MCV 89 MCH 28.5 MCHC 32.2 RDW 17.0 H Plt Count 260 Seg Neutrophils % Not Reportable Lymphocytes % Not Reportable Monocytes % Not Reportable Eosinophils % Not Reportable Basophils % Not Reportable Absolute Neutrophils Not Reportable Absolute Lymphocytes Not Reportable Absolute Monocytes Not Reportable Absolute Eosinophils Not Reportable Absolute Basophils Not Reportable Sodium 131.4 L Potassium 3.5 L Chloride 98 Carbon Dioxide 25 Anion Gap 8 BUN 10 Creatinine 2.69 H Est GFR ( Amer) 23 L Est GFR (Non-Af Amer) 19 L Glucose 114 H Calcium 7.2 L 05/29/16 05/30/16 05/31/16 23:45 05:55 05:15 Creatine Kinase 31 CK-MB (CK-2) 1.81 1.71 Troponin I 0.069 0.094 05/31/16 05:15 Creatine Kinase CK-MB (CK-2) 1.46 Troponin I 0.079 Impressions: Chest/Abdomen CTA 05/29/16 18:00 IMPRESSION: No evidence for pulmonary embolic disease. Extensive chronic appearing changes as noted above. Small right pleural effusion is again identified which appears slightly larger than on the previous study. The previously described rounded masslike density in the right lower lobe is again identified. There is a central somewhat low density area and the possibility of a necrotic neoplasm or developing lung abscess cannot be excluded. Large pericardial effusion is again identified. Other findings as noted above Modified Barium Swallow 06/11/16 00:00 IMPRESSION: FLASH LARYNGEAL PENETRATION FROM RESIDUALS, WITHOUT ASPIRATION, SEEN WITH PUREED CONSISTENCY.PLEASE SEE SPEECH PATHOLOGIST REPORT FOR OTHER FINDINGS AND RECOMMENDATIONS. Chest X-Ray 06/11/16 06:00 IMPRESSION: NO CHANGE IN APPEARANCE OF THE CHEST Head CT 06/23/16 01:35 IMPRESSION: Prominent relative low density areas in the periventricular white matter in both parietal regions as noted above. Differential possibilities are as noted above. MRI may be of value for further evaluation. Other findings as noted above. Head MRI 06/24/16 00:00 IMPRESSION: SEVERAL LOCULATED CYSTIC LESIONS IN THE CEREBRAL HEMISPHERES BILATERALLY WITH ASSOCIATED VASOGENIC EDEMA IN THE WHITE MATTER. THIS CONDITION APPEARS TO HAVE DEVELOPED FAIRLY RAPIDLY BASED ON A NORMAL HEAD CT ON 05/18/2016. FINDINGS MAY BE DUE TO INFECTIOUS ETIOLOGY, POSSIBLE ATYPICAL ORGANISM, WITH DEVELOPMENT OF BRAIN ABSCESSES. ACUTE INFLAMMATORY PROCESS COULD BE ANOTHER POSSIBILITY. MALIGNANCY SUCH METASTATIC DISEASE IS LESS LIKELY. Assessment & Plan - Diagnosis (1) Acute hypoxemic respiratory failure Is this a current diagnosis for this admission?: Yes (2) Lung cancer Qualifiers: Laterality: unspecified laterality Lung location: unspecified part of lung Qualified Code(s): C34.90 - Malignant neoplasm of unspecified part of unspecified bronchus or lung Is this a current diagnosis for this admission?: Yes (3) Lung abscess Qualifiers: Pulmonary abscess pneumonia presence: with pneumonia Laterality: right Lung location: unspecified part of lung Qualified Code(s): J85.1 - Abscess of lung with pneumonia Is this a current diagnosis for this admission?: No (4) End stage renal disease Is this a current diagnosis for this admission?: Yes (5) Cardiac arrest Is this a current diagnosis for this admission?: Yes (6) Cardiogenic shock Is this a current diagnosis for this admission?: Yes (7) Septic shock Is this a current diagnosis for this admission?: Yes (8) Hypoglycemia Is this a current diagnosis for this admission?: Yes (9) Anorexia Is this a current diagnosis for this admission?: Yes (10) Gangrene of toe Is this a current diagnosis for this admission?: Yes (11) Malignant cachexia Is this a current diagnosis for this admission?: Yes (12) New onset seizure Is this a current diagnosis for this admission?: Yes (13) Cerebral abscess Is this a current diagnosis for this admission?: Yes - Plan Summary Plan Summary: She will continue IV antibiotic, and other treatment plan. I spoke to GI Dr. Jaquez regarding PEG tube placement this be done on Tuesday
--- NOTE | 2016-06-25 19:55 | PDOC PROGRESS REPORT ---
Subjective Progress Note for:: 06/25/16 Subjective:: I saw the patient during the initiation of dialysis this afternoon at around 1: 15 PM. Patient seems to be more awake today compared to yesterday as per reports from yesterday. She actually answered my questions appropriately. She tells me she is doing fine. She is currently on nasal cannula when I saw her. Aside from the hoarseness in her voice and right arm pain she didn't have any other complaints. She is still maintained on D10 for her hypoglycemia. She tolerated gentle dialysis today. Physical Exam Vital Signs: Temp Pulse Resp BP Pulse Ox 98.2 F 84 22 H 140/118 H 88 L 06/25/16 11:44 06/25/16 10:00 06/25/16 16:04 06/25/16 16:04 06/25/16 04:53 Intake & Output 06/24/16 06/25/16 06/26/16 06:59 06:59 06:59 Intake Total 410 1747 760 Output Total 0 0 500 Balance 410 1747 260 Weight 54.5 kg 58 kg Vital signs during initiation of dialysis this afternoon: Blood pressure 142/121 , heart rate 98, blood flow rate 350 mL per minute, dialysate flow rate 600 mL per minute. Exam: General appearance: PRESENT: no acute distress, cooperative, emaciated and ill- looking Head exam: PRESENT: atraumatic, normocephalic Eye exam: PRESENT: conjunctiva pale, PERRLA. ABSENT: scleral icterus Neck exam: ABSENT: JVD Respiratory exam: PRESENT: Diminished breath sounds. Minimal bibasal crackles aABSENT: rhonchi, unlabored, wheezes Cardiovascular exam: PRESENT: Regular rate rhythm -+S1, +S2. ABSENT: diastolic murmur, systolic murmur GI/Abdominal exam: PRESENT: normal bowel sounds, soft. ABSENT: guarding, mass, tenderness Extremities exam: ABSENT: No edema Neurological exam: PRESENT: alert, awake, oriented to person, place and time. Skin exam: PRESENT: dry, warm, Cardiovascular exam: PRESENT: +S1, +S2, systolic murmur GI/Abdominal exam: PRESENT: normal bowel sounds, soft. ABSENT: distended, firm , tenderness Results Laboratory Results: 06/25/16 05:30 06/25/16 05:30 06/25/16 06/25/16 05:30 05:30 WBC 10.0 RBC 3.07 L Hgb 8.7 L Hct 27.2 L MCV 89 MCH 28.5 MCHC 32.2 RDW 17.0 H Plt Count 260 Seg Neutrophils % Not Reportable Lymphocytes % Not Reportable Monocytes % Not Reportable Eosinophils % Not Reportable Basophils % Not Reportable Absolute Neutrophils Not Reportable Absolute Lymphocytes Not Reportable Absolute Monocytes Not Reportable Absolute Eosinophils Not Reportable Absolute Basophils Not Reportable Sodium 131.4 L Potassium 3.5 L Chloride 98 Carbon Dioxide 25 Anion Gap 8 BUN 10 Creatinine 2.69 H Est GFR ( Amer) 23 L Est GFR (Non-Af Amer) 19 L Glucose 114 H Calcium 7.2 L 05/29/16 05/30/16 05/31/16 23:45 05:55 05:15 Creatine Kinase 31 CK-MB (CK-2) 1.81 1.71 Troponin I 0.069 0.094 05/31/16 05:15 Creatine Kinase CK-MB (CK-2) 1.46 Troponin I 0.079 Impressions: Chest/Abdomen CTA 05/29/16 18:00 IMPRESSION: No evidence for pulmonary embolic disease. Extensive chronic appearing changes as noted above. Small right pleural effusion is again identified which appears slightly larger than on the previous study. The previously described rounded masslike density in the right lower lobe is again identified. There is a central somewhat low density area and the possibility of a necrotic neoplasm or developing lung abscess cannot be excluded. Large pericardial effusion is again identified. Other findings as noted above Modified Barium Swallow 06/11/16 00:00 IMPRESSION: FLASH LARYNGEAL PENETRATION FROM RESIDUALS, WITHOUT ASPIRATION, SEEN WITH PUREED CONSISTENCY.PLEASE SEE SPEECH PATHOLOGIST REPORT FOR OTHER FINDINGS AND RECOMMENDATIONS. Chest X-Ray 06/11/16 06:00 IMPRESSION: NO CHANGE IN APPEARANCE OF THE CHEST Head CT 06/23/16 01:35 IMPRESSION: Prominent relative low density areas in the periventricular white matter in both parietal regions as noted above. Differential possibilities are as noted above. MRI may be of value for further evaluation. Other findings as noted above. Head MRI 06/24/16 00:00 IMPRESSION: SEVERAL LOCULATED CYSTIC LESIONS IN THE CEREBRAL HEMISPHERES BILATERALLY WITH ASSOCIATED VASOGENIC EDEMA IN THE WHITE MATTER. THIS CONDITION APPEARS TO HAVE DEVELOPED FAIRLY RAPIDLY BASED ON A NORMAL HEAD CT ON 05/18/2016. FINDINGS MAY BE DUE TO INFECTIOUS ETIOLOGY, POSSIBLE ATYPICAL ORGANISM, WITH DEVELOPMENT OF BRAIN ABSCESSES. ACUTE INFLAMMATORY PROCESS COULD BE ANOTHER POSSIBILITY. MALIGNANCY SUCH METASTATIC DISEASE IS LESS LIKELY. Assessment & Plan - Diagnosis (1) End stage renal disease Is this a current diagnosis for this admission?: YesPlan: We did dialysis today for 2 hours, using the patient's AV fistula, with 3 potassium bath, blood flow rate of to 250 mL per minute, dialysate flow rate of 600 mL per minute, ultrafiltration 500 mL, no heparin and no Procrit during dialysis. We will continue hemodialysis support as patient's wishes. I will cover for Dr. Alaniz for the next week. (2) Anemia Is this a current diagnosis for this admission?: Yes (3) Hypoglycemia Is this a current diagnosis for this admission?: YesPlan: Continue D10 IV fluids. (4) Malignant cachexia Is this a current diagnosis for this admission?: Yes (5) Cerebral abscess Is this a current diagnosis for this admission?: Yes (6) Lung abscess Qualifiers: Pulmonary abscess pneumonia presence: with pneumonia Laterality: right Lung location: unspecified part of lung Qualified Code(s): J85.1 - Abscess of lung with pneumonia Is this a current diagnosis for this admission?: No (7) Lung cancer Qualifiers: Laterality: unspecified laterality Lung location: unspecified part of lung Qualified Code(s): C34.90 - Malignant neoplasm of unspecified part of unspecified bronchus or lung Is this a current diagnosis for this admission?: Yes (8) HTN (hypertension) Qualifiers: Hypertension type: essential hypertension Qualified Code(s): I10 - Essential (primary) hypertension (9) Scleroderma Is this a current diagnosis for this admission?: Yes - Time Time with patient: 15-25 minutes
[2016-06-26] MEDS: MORPHINE SULFATE 10 MG/ML INJ IV PRN ×3 (00:52→21:36)
[2016-06-26] MEDS: HEPARIN SOD (PORCINE) 5,000 UNIT/ML 1 ML SYRINGE SUBCUT SCH ×3 (06:47→21:11)
[2016-06-26] MEDS: METRONIDAZOLE 500 MG/NS RTU 100 ML IV SCH ×3 (06:48→17:34)
[2016-06-26] MEDS: HYDRALAZINE HCL 10 MG TABLET PO SCH ×3 (06:48→21:07)
[2016-06-26] MEDS: DEXTROSE 10%-WATER 1,000 ML IV PRN (06:48)
[2016-06-26] MEDS: DEXAMETHASONE SOD PHOSPHATE INJ 4 MG/1 ML VIAL IV SCH ×2 (07:59→21:06)
[2016-06-26] MEDS: LEVETIRACETAM 500 MG/NACL-ISO 500 MG/100 ML RTUPB IV SCH ×2 (08:01→21:07)
[2016-06-26] MEDS: CILOSTAZOL 100 MG TABLET PO SCH ×2 (08:02→15:58)
[2016-06-26] MEDS: LORAZEPAM INJ 2 MG/1 ML VIAL IV PRN (09:13)
[2016-06-26] MEDS: PIPERACILLIN SODIUM/TAZOBACTAM 2.25 GM in NORMAL SALINE 50 ML IV SCH ×2 (09:15→21:09)
[2016-06-26] MEDS: NYSTATIN TOPICAL POWDER 15 GM TP SCH ×2 (09:17→17:33)
[2016-06-26] MEDS: NYSTATIN/DEXAMETH/DIPHEN SUSP 120 ML PO SCH ×4 (09:19→21:11)
[2016-06-26] MEDS: DEXTROSE 50%-WATER 25 GM/50 ML DISP.SYRIN IV PRN ×2 (09:19→13:45)
[2016-06-26] MEDS: MEGESTROL ACETATE SUSP 400 MG/10 ML UDCUP PO SCH (09:19)
[2016-06-26] MEDS: LISINOPRIL 10 MG TABLET PO SCH ×2 (09:19→21:07)
[2016-06-26] MEDS: CARVEDILOL 12.5 MG TABLET PO SCH ×2 (09:19→21:06)
--- NOTE | 2016-06-26 15:52 | PDOC PROGRESS REPORT ---
Subjective Progress Note for:: 06/26/16 Subjective:: She was seen by the bedside, she has multiple medical, comorbid conditions, she is requiring noninvasive positive pressure ventilation today, she wants to eat food. She was seen by the bedside she is alert and appropriate in the response to verbal commands. Physical Exam Vital Signs: Temp Pulse Resp BP Pulse Ox 98.3 F 93 17 136/100 H 100 06/26/16 15:08 06/26/16 15:08 06/26/16 15:08 06/26/16 15:08 06/26/16 15:08 Intake & Output 06/25/16 06/26/16 06/27/16 06:59 06:59 06:59 Intake Total 1747 1500 0 Output Total 0 500 Balance 1747 1000 0 Weight 58 kg 59.7 kg General appearance: PRESENT: no acute distress Eye exam: PRESENT: PERRLA Respiratory exam: PRESENT: crackles Cardiovascular exam: PRESENT: +S1, +S2 GI/Abdominal exam: PRESENT: soft Neurological exam: PRESENT: alert Results Laboratory Results: 06/25/16 05:30 06/25/16 05:30 05/29/16 05/30/16 05/31/16 23:45 05:55 05:15 Creatine Kinase 31 CK-MB (CK-2) 1.81 1.71 Troponin I 0.069 0.094 05/31/16 05:15 Creatine Kinase CK-MB (CK-2) 1.46 Troponin I 0.079 Impressions: Chest/Abdomen CTA 05/29/16 18:00 IMPRESSION: No evidence for pulmonary embolic disease. Extensive chronic appearing changes as noted above. Small right pleural effusion is again identified which appears slightly larger than on the previous study. The previously described rounded masslike density in the right lower lobe is again identified. There is a central somewhat low density area and the possibility of a necrotic neoplasm or developing lung abscess cannot be excluded. Large pericardial effusion is again identified. Other findings as noted above Modified Barium Swallow 06/11/16 00:00 IMPRESSION: FLASH LARYNGEAL PENETRATION FROM RESIDUALS, WITHOUT ASPIRATION, SEEN WITH PUREED CONSISTENCY.PLEASE SEE SPEECH PATHOLOGIST REPORT FOR OTHER FINDINGS AND RECOMMENDATIONS. Chest X-Ray 06/11/16 06:00 IMPRESSION: NO CHANGE IN APPEARANCE OF THE CHEST Head CT 06/23/16 01:35 IMPRESSION: Prominent relative low density areas in the periventricular white matter in both parietal regions as noted above. Differential possibilities are as noted above. MRI may be of value for further evaluation. Other findings as noted above. Head MRI 06/24/16 00:00 IMPRESSION: SEVERAL LOCULATED CYSTIC LESIONS IN THE CEREBRAL HEMISPHERES BILATERALLY WITH ASSOCIATED VASOGENIC EDEMA IN THE WHITE MATTER. THIS CONDITION APPEARS TO HAVE DEVELOPED FAIRLY RAPIDLY BASED ON A NORMAL HEAD CT ON 05/18/2016. FINDINGS MAY BE DUE TO INFECTIOUS ETIOLOGY, POSSIBLE ATYPICAL ORGANISM, WITH DEVELOPMENT OF BRAIN ABSCESSES. ACUTE INFLAMMATORY PROCESS COULD BE ANOTHER POSSIBILITY. MALIGNANCY SUCH METASTATIC DISEASE IS LESS LIKELY. Assessment & Plan - Diagnosis (1) Acute hypoxemic respiratory failure Is this a current diagnosis for this admission?: Yes (2) Lung cancer Qualifiers: Laterality: unspecified laterality Lung location: unspecified part of lung Qualified Code(s): C34.90 - Malignant neoplasm of unspecified part of unspecified bronchus or lung Is this a current diagnosis for this admission?: Yes (3) Lung abscess Qualifiers: Pulmonary abscess pneumonia presence: with pneumonia Laterality: right Lung location: unspecified part of lung Qualified Code(s): J85.1 - Abscess of lung with pneumonia Is this a current diagnosis for this admission?: No (4) End stage renal disease Is this a current diagnosis for this admission?: Yes (5) Cardiac arrest Is this a current diagnosis for this admission?: Yes (6) Cardiogenic shock Is this a current diagnosis for this admission?: Yes (7) Septic shock Is this a current diagnosis for this admission?: Yes (8) Hypoglycemia Is this a current diagnosis for this admission?: Yes (9) Anorexia Is this a current diagnosis for this admission?: Yes (10) Gangrene of toe Is this a current diagnosis for this admission?: Yes (11) Malignant cachexia Is this a current diagnosis for this admission?: Yes (12) New onset seizure Is this a current diagnosis for this admission?: Yes (13) Cerebral abscess Is this a current diagnosis for this admission?: Yes - Plan Summary Plan Summary: She will continue IV antibiotic, noninvasive positive pressure ventilation, BiPAP, regular dialysis based diet is also ordered
[2016-06-26] MEDS: VANCOMYCIN HCL 750 MG in DEXTROSE 5%-WATER 250 ML IV SCH (21:10)
[2016-06-27] MEDS: METRONIDAZOLE 500 MG/NS RTU 100 ML IV SCH ×5 (00:24→23:17)
[2016-06-27] MEDS: MORPHINE SULFATE 10 MG/ML INJ IV PRN ×4 (04:17→20:49)
[2016-06-27] MEDS: HYDRALAZINE HCL 10 MG TABLET PO SCH ×3 (06:40→13:32)
[2016-06-27] MEDS: HEPARIN SOD (PORCINE) 5,000 UNIT/ML 1 ML SYRINGE SUBCUT SCH ×3 (06:41→21:47)
[2016-06-27] MEDS: CILOSTAZOL 100 MG TABLET PO SCH ×2 (07:59→15:22)
[2016-06-27] MEDS: DEXAMETHASONE SOD PHOSPHATE INJ 4 MG/1 ML VIAL IV SCH ×2 (08:00→20:49)
[2016-06-27] MEDS: LEVETIRACETAM 500 MG/NACL-ISO 500 MG/100 ML RTUPB IV SCH ×2 (08:01→20:49)
[2016-06-27] MEDS: NYSTATIN TOPICAL POWDER 15 GM TP SCH ×2 (09:51→17:10)
[2016-06-27] MEDS: MEGESTROL ACETATE SUSP 400 MG/10 ML UDCUP PO SCH (09:55)
[2016-06-27] MEDS: LISINOPRIL 10 MG TABLET PO SCH ×2 (09:56→21:46)
[2016-06-27] MEDS: CARVEDILOL 12.5 MG TABLET PO SCH ×2 (09:56→21:46)
[2016-06-27] MEDS: PIPERACILLIN SODIUM/TAZOBACTAM 2.25 GM in NORMAL SALINE 50 ML IV SCH ×2 (09:58→21:45)
[2016-06-27] MEDS: NYSTATIN/DEXAMETH/DIPHEN SUSP 120 ML PO SCH ×4 (09:59→21:49)
[2016-06-27] MEDS: DEXTROSE 50%-WATER 25 GM/50 ML DISP.SYRIN IV PRN ×2 (12:33→16:12)
--- NOTE | 2016-06-27 16:15 | PDOC PROGRESS REPORT ---
Subjective Progress Note for:: 06/27/16 Subjective:: Patient is responding to the IV antibiotic, she has cerebral abscess and she required IV antibiotic for 6-8 weeks the plan is for PEG tube tomorrow and subsequently hopefully transfer to a [facility] for rehabilitation. She continues to have pain in the fingers the fingers are gangrenous from ischemia and also the toe . Physical Exam Vital Signs: Temp Pulse Resp BP Pulse Ox 97.8 F 87 17 118/98 H 93 06/27/16 11:10 06/27/16 14:00 06/27/16 11:10 06/27/16 11:10 06/27/16 11:10 Intake & Output 06/26/16 06/27/16 06/28/16 06:59 06:59 06:59 Intake Total 1500 1743 400 Output Total 500 Balance 1000 1743 400 Weight 59.7 kg 58.3 kg General appearance: PRESENT: no acute distress, thin Eye exam: PRESENT: PERRLA Respiratory exam: PRESENT: clear to auscultation frankie Cardiovascular exam: PRESENT: +S1, +S2 Results Laboratory Results: 06/25/16 05:30 06/25/16 05:30 05/29/16 05/30/16 05/31/16 23:45 05:55 05:15 Creatine Kinase 31 CK-MB (CK-2) 1.81 1.71 Troponin I 0.069 0.094 05/31/16 05:15 Creatine Kinase CK-MB (CK-2) 1.46 Troponin I 0.079 Impressions: Chest/Abdomen CTA 05/29/16 18:00 IMPRESSION: No evidence for pulmonary embolic disease. Extensive chronic appearing changes as noted above. Small right pleural effusion is again identified which appears slightly larger than on the previous study. The previously described rounded masslike density in the right lower lobe is again identified. There is a central somewhat low density area and the possibility of a necrotic neoplasm or developing lung abscess cannot be excluded. Large pericardial effusion is again identified. Other findings as noted above Modified Barium Swallow 06/11/16 00:00 IMPRESSION: FLASH LARYNGEAL PENETRATION FROM RESIDUALS, WITHOUT ASPIRATION, SEEN WITH PUREED CONSISTENCY.PLEASE SEE SPEECH PATHOLOGIST REPORT FOR OTHER FINDINGS AND RECOMMENDATIONS. Chest X-Ray 06/11/16 06:00 IMPRESSION: NO CHANGE IN APPEARANCE OF THE CHEST Head CT 06/23/16 01:35 IMPRESSION: Prominent relative low density areas in the periventricular white matter in both parietal regions as noted above. Differential possibilities are as noted above. MRI may be of value for further evaluation. Other findings as noted above. Head MRI 06/24/16 00:00 IMPRESSION: SEVERAL LOCULATED CYSTIC LESIONS IN THE CEREBRAL HEMISPHERES BILATERALLY WITH ASSOCIATED VASOGENIC EDEMA IN THE WHITE MATTER. THIS CONDITION APPEARS TO HAVE DEVELOPED FAIRLY RAPIDLY BASED ON A NORMAL HEAD CT ON 05/18/2016. FINDINGS MAY BE DUE TO INFECTIOUS ETIOLOGY, POSSIBLE ATYPICAL ORGANISM, WITH DEVELOPMENT OF BRAIN ABSCESSES. ACUTE INFLAMMATORY PROCESS COULD BE ANOTHER POSSIBILITY. MALIGNANCY SUCH METASTATIC DISEASE IS LESS LIKELY. Assessment & Plan - Diagnosis (1) Acute hypoxemic respiratory failure Is this a current diagnosis for this admission?: Yes (2) Lung cancer Qualifiers: Laterality: unspecified laterality Lung location: unspecified part of lung Qualified Code(s): C34.90 - Malignant neoplasm of unspecified part of unspecified bronchus or lung Is this a current diagnosis for this admission?: Yes (3) Lung abscess Qualifiers: Pulmonary abscess pneumonia presence: with pneumonia Laterality: right Lung location: unspecified part of lung Qualified Code(s): J85.1 - Abscess of lung with pneumonia Is this a current diagnosis for this admission?: No (4) End stage renal disease Is this a current diagnosis for this admission?: Yes (5) Cardiac arrest Is this a current diagnosis for this admission?: Yes (6) Cardiogenic shock Is this a current diagnosis for this admission?: Yes (7) Septic shock Is this a current diagnosis for this admission?: Yes (8) Hypoglycemia Is this a current diagnosis for this admission?: Yes (9) Anorexia Is this a current diagnosis for this admission?: Yes (10) Gangrene of toe Is this a current diagnosis for this admission?: Yes (11) Malignant cachexia Is this a current diagnosis for this admission?: Yes (12) New onset seizure Is this a current diagnosis for this admission?: Yes (13) Cerebral abscess Is this a current diagnosis for this admission?: Yes - Plan Summary Plan Summary: OOB to chair recommended and ordered
[2016-06-27 22:36] LABS: CREATININE RESULT 3.01 mg/dL (0.52-1.25)
[2016-06-28] MEDS: LORAZEPAM INJ 2 MG/1 ML VIAL IV PRN ×2 (00:22→18:39)
[2016-06-28] MEDS: HYDRALAZINE HCL 10 MG TABLET PO SCH ×3 (05:42→21:34)
[2016-06-28] MEDS: HEPARIN SOD (PORCINE) 5,000 UNIT/ML 1 ML SYRINGE SUBCUT SCH ×3 (05:45→21:33)
[2016-06-28] MEDS: METRONIDAZOLE 500 MG/NS RTU 100 ML IV SCH ×4 (05:45→23:43)
[2016-06-28] MEDS: DEXTROSE 10%-WATER 1,000 ML IV PRN (05:46)
[2016-06-28 06:26] LABS: ABSOLUTE BASOPHILS # (AUTO) 0.1 10^3/uL (0.0-0.2); ABSOLUTE LYMPHOCYTES (AUTO) 0.7 10^3/uL (0.5-4.7); ABSOLUTE MONOCYTES (AUTO) 0.4 10^3/uL (0.1-1.4); BASOPHILS % (AUTO) 0.4 % (0-2); HEMATOCRIT 27.9 % (36.0-47.0); HEMOGLOBIN 8.6 g/dL (12.0-15.5); HGB HCT DIFFERENCE -2.1; LYMPHOCYTES % (AUTO) 5.4 % (13-45); MEAN CORPUSCULAR HEMOGLOBIN 27.6 pg (27.0-33.4); MEAN CORPUSCULAR HGB CONC 30.9 g/dL (32.0-36.0); MEAN CORPUSCULAR VOLUME 89 fl (80-97); MONOCYTES % (AUTO) 3.4 % (3-13); RED BLOOD COUNT 3.12 10^6/uL (3.72-5.28); SEGMENTED NEUTROPHILS % (AUTO) 90.8 % (42-78); WHITE BLOOD COUNT 13.2 10^3/uL (4.0-10.5)
[2016-06-28] MEDS: MORPHINE SULFATE 10 MG/ML INJ IV PRN ×2 (06:41→21:33)
[2016-06-28 06:47] LABS: ANION GAP 10 (5-19); BLOOD UREA NITROGEN 18 mg/dL (7-20); CARBON DIOXIDE 20 mmol/L (22-30); CHLORIDE 107 mmol/L (98-107); CREATININE RESULT 2.54 mg/dL (0.52-1.25); GLUCOSE 84 mg/dL (75-110); POTASSIUM 3.1 mmol/L (3.6-5.0); SODIUM 136.5 mmol/L (137-145)
[2016-06-28 07:04] LABS: CALCIUM 6.4 mg/dL (8.4-10.2)
[2016-06-28] MEDS ORDERED: EPOETIN ALFA INJ 20000 UNIT/1 ML VIAL (RENAL) IV PRN (08:48)
[2016-06-28] MEDS ORDERED: CALCIUM GLUCONATE 1000 MG/10 ML INJ IV PRN (10:00)
[2016-06-28] MEDS: LEVETIRACETAM 500 MG/NACL-ISO 500 MG/100 ML RTUPB IV SCH ×2 (10:55→20:28)
[2016-06-28] MEDS: CILOSTAZOL 100 MG TABLET PO SCH ×2 (11:01→15:05)
[2016-06-28] MEDS: MEGESTROL ACETATE SUSP 400 MG/10 ML UDCUP PO SCH (11:02)
[2016-06-28] MEDS: DEXAMETHASONE SOD PHOSPHATE INJ 4 MG/1 ML VIAL IV SCH ×2 (11:02→20:28)
[2016-06-28] MEDS: CARVEDILOL 12.5 MG TABLET PO SCH ×2 (11:03→21:34)
[2016-06-28] MEDS: LISINOPRIL 10 MG TABLET PO SCH ×2 (11:03→21:34)
[2016-06-28] MEDS: PIPERACILLIN SODIUM/TAZOBACTAM 2.25 GM in NORMAL SALINE 50 ML IV SCH ×2 (11:05→21:33)
[2016-06-28] MEDS: NYSTATIN/DEXAMETH/DIPHEN SUSP 120 ML PO SCH ×4 (11:07→21:34)
[2016-06-28] MEDS: NYSTATIN TOPICAL POWDER 15 GM TP SCH ×2 (11:11→17:24)
[2016-06-28] MEDS: DEXTROSE 50%-WATER 25 GM/50 ML DISP.SYRIN IV PRN ×2 (11:50→16:37)
[2016-06-28] MEDS ORDERED: MIDAZOLAM 2 MG/2 ML INJ ONE (17:22)
[2016-06-28] MEDS ORDERED: FENTANYL CITRATE INJ/PF 100 MCG/2 ML AMPUL ONE ×2 (17:22)
[2016-06-28] MEDS ORDERED: NALOXONE HCL INJ/PF 0.4 MG/1 ML SDV ONE (17:22)
[2016-06-28] MEDS ORDERED: GLUCAGON,HUMAN RECOMB 1 MG INJ ONE (17:23)
[2016-06-28] MEDS ORDERED: EPINEPHRINE INJ 1 MG/10 ML DISP.SYRIN ONE (17:23)
[2016-06-28] MEDS ORDERED: FLUMAZENIL INJ 0.5 MG/5 ML VIAL IV ONE (17:23)
[2016-06-28] MEDS: MIDAZOLAM 2 MG/2 ML INJ ONE ×2 (19:05→19:10)
--- NOTE | 2016-06-28 19:55 | Operative Report ---
Operative Report DATE OF SURGERY: 06/28/16 Operative Report: Pre-op diagnosis: Dysphagia and malnutrition Post-op diagnosis: Proximal esophageal stricture Surgery: Esophagogastroduodenoscopy with PEG tube placement Medications: Versed 2mg Fentanyl 50mcg IV push Tissue removed: None Procedure: After informed consent obtained from patient, the throat was sprayed with Hurricane and conscious sedation was achieved. The upper endoscope was inserted into the esophagus under direct vision and advanced into the stomach. There was some difficulty passing through the upper esophagus due to a stricture. I was able to pass the 9 mm scope with mild difficulty. The duodenum was entered and examined to the second part. An appropriate site was then localized in the gastric body and over the abdominal wall. The site was cleaned with Betadine and draped. Xylocaine was then injected for local anesthesia. In the standard fashion a 20 Malay gastrostomy tube was then placed with no difficulty. I did not reinsert the endoscope. Patient tolerated procedure well. Findings Esophagus: Proximal esophageal stricture with a significant break in the mucosa after passing the scope. Antrum: Normal Body: Normal. Gastrostomy tube was placed in the distal gastric body Fundus: Normal Duodenum first part: Normal Duodenum second part: Normal Plan: Start PEG tube feeding in the morning. Continue PPI OPERATION: .
--- NOTE | 2016-06-28 19:58 | PDOC PROGRESS REPORT ---
Subjective Progress Note for:: 06/28/16 Subjective:: I saw the patient during dialysis early this morning at around 8:15 AM. She is awake and communicative. She is scheduled for PEG tube placement today. She said she is eating a little bit but not much. She continues to complain about her right arm pain but no other new complaints otherwise. She tolerated dialysis without any much problem. Physical Exam Vital Signs: Temp Pulse Resp BP Pulse Ox 97.8 F 105 H 24 H 114/84 100 06/28/16 17:34 06/28/16 19:50 06/28/16 19:50 06/28/16 19:50 06/28/16 19:50 Intake & Output 06/27/16 06/28/16 06/29/16 06:59 06:59 06:59 Intake Total 1743 2328 543 Output Total 1000 Balance 1743 2328 -457 Weight 58.3 kg 57.1 kg Vitals during dialysis this morning: Blood pressure 150/88, heart rate 86, blood flow rate 300 mL per minute, dialysate flow rate of 600 mL per minute. Exam: General appearance: PRESENT: no acute distress, cooperative, cachectic Head exam: PRESENT: atraumatic, normocephalic Eye exam: PRESENT: conjunctiva pale, PERRLA. ABSENT: scleral icterus Neck exam: ABSENT: JVD Respiratory exam: PRESENT: Diminished breath sounds. Positive basal crackles ABSENT: rhonchi, unlabored, wheezes Cardiovascular exam: PRESENT: Regular rate rhythm -+S1, +S2. ABSENT: diastolic murmur, systolic murmur GI/Abdominal exam: PRESENT: normal bowel sounds, soft. ABSENT: guarding, mass, tenderness Extremities exam: Grade 1 bilateral PT and edema Neurological exam: PRESENT: alert, awake, oriented to person, place and time. Skin exam: PRESENT: dry, warm, Cardiovascular exam: PRESENT: +S1, +S2, systolic murmur GI/Abdominal exam: PRESENT: normal bowel sounds, soft. ABSENT: distended, firm , tenderness Results Laboratory Results: 06/28/16 06:00 06/28/16 06:00 06/27/16 06/28/16 06/28/16 21:50 06:00 06:00 WBC 13.2 H RBC 3.12 L Hgb 8.6 L Hct 27.9 L MCV 89 MCH 27.6 MCHC 30.9 L RDW 17.0 H Plt Count 252 Seg Neutrophils % 90.8 H Lymphocytes % 5.4 L Monocytes % 3.4 Eosinophils % 0.0 Basophils % 0.4 Absolute Neutrophils 12.0 H Absolute Lymphocytes 0.7 Absolute Monocytes 0.4 Absolute Eosinophils 0.0 Absolute Basophils 0.1 Sodium 136.5 L Potassium 3.1 L Chloride 107 Carbon Dioxide 20 L Anion Gap 10 BUN 18 Creatinine 3.01 H 2.54 H Est GFR ( Amer) 21 L 25 L Est GFR (Non-Af Amer) 17 L 21 L Glucose 84 Calcium 6.4 L* 05/29/16 05/30/16 05/31/16 23:45 05:55 05:15 Creatine Kinase 31 CK-MB (CK-2) 1.81 1.71 Troponin I 0.069 0.094 05/31/16 05:15 Creatine Kinase CK-MB (CK-2) 1.46 Troponin I 0.079 Impressions: Chest/Abdomen CTA 05/29/16 18:00 IMPRESSION: No evidence for pulmonary embolic disease. Extensive chronic appearing changes as noted above. Small right pleural effusion is again identified which appears slightly larger than on the previous study. The previously described rounded masslike density in the right lower lobe is again identified. There is a central somewhat low density area and the possibility of a necrotic neoplasm or developing lung abscess cannot be excluded. Large pericardial effusion is again identified. Other findings as noted above Modified Barium Swallow 06/11/16 00:00 IMPRESSION: FLASH LARYNGEAL PENETRATION FROM RESIDUALS, WITHOUT ASPIRATION, SEEN WITH PUREED CONSISTENCY.PLEASE SEE SPEECH PATHOLOGIST REPORT FOR OTHER FINDINGS AND RECOMMENDATIONS. Chest X-Ray 06/11/16 06:00 IMPRESSION: NO CHANGE IN APPEARANCE OF THE CHEST Head CT 06/23/16 01:35 IMPRESSION: Prominent relative low density areas in the periventricular white matter in both parietal regions as noted above. Differential possibilities are as noted above. MRI may be of value for further evaluation. Other findings as noted above. Head MRI 06/24/16 00:00 IMPRESSION: SEVERAL LOCULATED CYSTIC LESIONS IN THE CEREBRAL HEMISPHERES BILATERALLY WITH ASSOCIATED VASOGENIC EDEMA IN THE WHITE MATTER. THIS CONDITION APPEARS TO HAVE DEVELOPED FAIRLY RAPIDLY BASED ON A NORMAL HEAD CT ON 05/18/2016. FINDINGS MAY BE DUE TO INFECTIOUS ETIOLOGY, POSSIBLE ATYPICAL ORGANISM, WITH DEVELOPMENT OF BRAIN ABSCESSES. ACUTE INFLAMMATORY PROCESS COULD BE ANOTHER POSSIBILITY. MALIGNANCY SUCH METASTATIC DISEASE IS LESS LIKELY. Assessment & Plan - Diagnosis (1) End stage renal disease Is this a current diagnosis for this admission?: YesPlan: We will do dialysis today for 2 hours, using the patient's PermCath, with 3 potassium bath, blood flow rate of 300 mL per minute, dialysate flow rate of 600 mL per minute, ultrafiltration 500, no heparin and Procrit with 20,000 units during dialysis intravenously. We'll continue dialysis support. (2) Anemia Is this a current diagnosis for this admission?: YesPlan: We will give Procrit as needed. (3) Hypoglycemia Is this a current diagnosis for this admission?: YesPlan: Improved (4) Malignant cachexia Is this a current diagnosis for this admission?: Yes (5) Cerebral abscess Is this a current diagnosis for this admission?: Yes (6) Lung abscess Qualifiers: Pulmonary abscess pneumonia presence: with pneumonia Laterality: right Lung location: unspecified part of lung Qualified Code(s): J85.1 - Abscess of lung with pneumonia Is this a current diagnosis for this admission?: No (7) Lung cancer Qualifiers: Laterality: unspecified laterality Lung location: unspecified part of lung Qualified Code(s): C34.90 - Malignant neoplasm of unspecified part of unspecified bronchus or lung Is this a current diagnosis for this admission?: Yes (8) HTN (hypertension) Qualifiers: Hypertension type: essential hypertension Qualified Code(s): I10 - Essential (primary) hypertension Is this a current diagnosis for this admission?: Yes (9) Scleroderma Is this a current diagnosis for this admission?: Yes (10) Failure to thrive Is this a current diagnosis for this admission?: YesPlan: On PEG tube feeding. - Time Time with patient: 15-25 minutes
--- NOTE | 2016-06-28 20:14 | PDOC PROGRESS REPORT ---
Subjective Progress Note for:: 06/28/16 Subjective:: , She had a PEG tube placement done today, she also have stage II sacral ulcer consultation will be requested from surgery Physical Exam Vital Signs: Temp Pulse Resp BP Pulse Ox 97.8 F 105 H 24 H 114/84 100 06/28/16 17:34 06/28/16 19:50 06/28/16 19:50 06/28/16 19:50 06/28/16 19:50 Intake & Output 06/27/16 06/28/16 06/29/16 06:59 06:59 06:59 Intake Total 1743 2328 543 Output Total 1000 Balance 1740 6726 -009 Weight 58.3 kg 57.1 kg General appearance: PRESENT: thin Eye exam: PRESENT: PERRLA Respiratory exam: PRESENT: clear to auscultation frankie Cardiovascular exam: PRESENT: +S1, +S2 GI/Abdominal exam: PRESENT: soft Neurological exam: PRESENT: alert Psychiatric exam: PRESENT: anxious Results Laboratory Results: 06/28/16 06:00 06/28/16 06:00 06/27/16 06/28/16 06/28/16 21:50 06:00 06:00 WBC 13.2 H RBC 3.12 L Hgb 8.6 L Hct 27.9 L MCV 89 MCH 27.6 MCHC 30.9 L RDW 17.0 H Plt Count 252 Seg Neutrophils % 90.8 H Lymphocytes % 5.4 L Monocytes % 3.4 Eosinophils % 0.0 Basophils % 0.4 Absolute Neutrophils 12.0 H Absolute Lymphocytes 0.7 Absolute Monocytes 0.4 Absolute Eosinophils 0.0 Absolute Basophils 0.1 Sodium 136.5 L Potassium 3.1 L Chloride 107 Carbon Dioxide 20 L Anion Gap 10 BUN 18 Creatinine 3.01 H 2.54 H Est GFR ( Amer) 21 L 25 L Est GFR (Non-Af Amer) 17 L 21 L Glucose 84 Calcium 6.4 L* 05/29/16 05/30/16 05/31/16 23:45 05:55 05:15 Creatine Kinase 31 CK-MB (CK-2) 1.81 1.71 Troponin I 0.069 0.094 05/31/16 05:15 Creatine Kinase CK-MB (CK-2) 1.46 Troponin I 0.079 Impressions: Chest/Abdomen CTA 05/29/16 18:00 IMPRESSION: No evidence for pulmonary embolic disease. Extensive chronic appearing changes as noted above. Small right pleural effusion is again identified which appears slightly larger than on the previous study. The previously described rounded masslike density in the right lower lobe is again identified. There is a central somewhat low density area and the possibility of a necrotic neoplasm or developing lung abscess cannot be excluded. Large pericardial effusion is again identified. Other findings as noted above Modified Barium Swallow 06/11/16 00:00 IMPRESSION: FLASH LARYNGEAL PENETRATION FROM RESIDUALS, WITHOUT ASPIRATION, SEEN WITH PUREED CONSISTENCY.PLEASE SEE SPEECH PATHOLOGIST REPORT FOR OTHER FINDINGS AND RECOMMENDATIONS. Chest X-Ray 06/11/16 06:00 IMPRESSION: NO CHANGE IN APPEARANCE OF THE CHEST Head CT 06/23/16 01:35 IMPRESSION: Prominent relative low density areas in the periventricular white matter in both parietal regions as noted above. Differential possibilities are as noted above. MRI may be of value for further evaluation. Other findings as noted above. Head MRI 06/24/16 00:00 IMPRESSION: SEVERAL LOCULATED CYSTIC LESIONS IN THE CEREBRAL HEMISPHERES BILATERALLY WITH ASSOCIATED VASOGENIC EDEMA IN THE WHITE MATTER. THIS CONDITION APPEARS TO HAVE DEVELOPED FAIRLY RAPIDLY BASED ON A NORMAL HEAD CT ON 05/18/2016. FINDINGS MAY BE DUE TO INFECTIOUS ETIOLOGY, POSSIBLE ATYPICAL ORGANISM, WITH DEVELOPMENT OF BRAIN ABSCESSES. ACUTE INFLAMMATORY PROCESS COULD BE ANOTHER POSSIBILITY. MALIGNANCY SUCH METASTATIC DISEASE IS LESS LIKELY. Assessment & Plan - Diagnosis (1) Acute hypoxemic respiratory failure Is this a current diagnosis for this admission?: Yes (2) Lung cancer Qualifiers: Laterality: unspecified laterality Lung location: unspecified part of lung Qualified Code(s): C34.90 - Malignant neoplasm of unspecified part of unspecified bronchus or lung Is this a current diagnosis for this admission?: Yes (3) Lung abscess Qualifiers: Pulmonary abscess pneumonia presence: with pneumonia Laterality: right Lung location: unspecified part of lung Qualified Code(s): J85.1 - Abscess of lung with pneumonia Is this a current diagnosis for this admission?: No (4) End stage renal disease Is this a current diagnosis for this admission?: Yes (5) Cardiac arrest Is this a current diagnosis for this admission?: Yes (6) Cardiogenic shock Is this a current diagnosis for this admission?: Yes (7) Septic shock Is this a current diagnosis for this admission?: Yes (8) Hypoglycemia Is this a current diagnosis for this admission?: Yes (9) Anorexia Is this a current diagnosis for this admission?: Yes (10) Gangrene of toe Is this a current diagnosis for this admission?: Yes (11) Malignant cachexia Is this a current diagnosis for this admission?: Yes (12) New onset seizure Is this a current diagnosis for this admission?: Yes (13) Cerebral abscess Is this a current diagnosis for this admission?: Yes (14) Esophageal stricture Is this a current diagnosis for this admission?: Yes (15) Sacral decubitus ulcer, stage II Is this a current diagnosis for this admission?: Yes - Plan Summary Plan Summary: Consultation from surgery regarding the pressure ulcer of the sacrum
[2016-06-28] MEDS: IPRATROPIUM/ALBUTEROL 0.5-2.5 MG/3 ML AMPUL NEB PRN (20:18)
[2016-06-28] MEDS: LANSOPRAZOLE 30 MG TAB.RAP.DR PO SCH (20:28)
[2016-06-29] MEDS: DEXTROSE 50%-WATER 25 GM/50 ML DISP.SYRIN IV PRN ×2 (00:55→11:14)
[2016-06-29] MEDS: LORAZEPAM INJ 2 MG/1 ML VIAL IV PRN ×3 (02:21→21:17)
[2016-06-29] MEDS: HEPARIN SOD (PORCINE) 5,000 UNIT/ML 1 ML SYRINGE SUBCUT SCH ×3 (06:11→21:08)
[2016-06-29] MEDS: METRONIDAZOLE 500 MG/NS RTU 100 ML IV SCH ×4 (06:12→23:36)
[2016-06-29] MEDS: HYDRALAZINE HCL 10 MG TABLET PO SCH ×3 (06:13→21:09)
[2016-06-29] MEDS: LANSOPRAZOLE 30 MG TAB.RAP.DR PO SCH (07:43)
[2016-06-29] MEDS: DEXAMETHASONE SOD PHOSPHATE INJ 4 MG/1 ML VIAL IV SCH ×2 (07:43→21:05)
[2016-06-29] MEDS: LEVETIRACETAM 500 MG/NACL-ISO 500 MG/100 ML RTUPB IV SCH ×2 (07:43→21:04)
[2016-06-29] MEDS: CILOSTAZOL 100 MG TABLET PO SCH ×2 (07:44→15:12)
[2016-06-29] MEDS: NYSTATIN TOPICAL POWDER 15 GM TP SCH ×2 (09:51→17:39)
[2016-06-29] MEDS: IPRATROPIUM/ALBUTEROL 0.5-2.5 MG/3 ML AMPUL NEB PRN (09:51)
[2016-06-29] MEDS: MEGESTROL ACETATE SUSP 400 MG/10 ML UDCUP PO SCH (09:53)
[2016-06-29] MEDS: LISINOPRIL 10 MG TABLET PO SCH ×2 (09:55→21:09)
[2016-06-29] MEDS: CARVEDILOL 12.5 MG TABLET PO SCH ×2 (09:55→21:05)
[2016-06-29] MEDS: NYSTATIN/DEXAMETH/DIPHEN SUSP 120 ML PO SCH ×4 (09:56→21:09)
[2016-06-29] MEDS: PIPERACILLIN SODIUM/TAZOBACTAM 2.25 GM in NORMAL SALINE 50 ML IV SCH ×2 (09:56→21:08)
[2016-06-29] MEDS: MORPHINE SULFATE 10 MG/ML INJ IV PRN ×2 (17:39→23:36)
--- NOTE | 2016-06-29 18:45 | PDOC PROGRESS REPORT ---
Subjective Progress Note for:: 06/28/16 Subjective:: less lethargic Physical Exam Vital Signs: Temp Pulse Resp BP Pulse Ox 97.9 F 96 18 118/84 95 06/28/16 05:48 06/28/16 07:29 06/28/16 05:48 06/28/16 05:48 06/28/16 05:48 Intake & Output 06/27/16 06/28/16 06/29/16 06:59 06:59 06:59 Intake Total 1743 2328 Balance 1743 2328 Weight 58.3 kg 57.1 kg General appearance: PRESENT: disheveled, other - Cachectic Head exam: PRESENT: atraumatic, normocephalic Eye exam: PRESENT: conjunctiva pale, EOMI Mouth exam: PRESENT: dry mucosa, neck supple Neck exam: ABSENT: carotid bruit, JVD, lymphadenopathy, thyromegaly Respiratory exam: PRESENT: decreased breath sounds, prolonged expiratory phas, rhonchi, symmetrical Cardiovascular exam: PRESENT: RRR, +S1, +S2 Pulses: PRESENT: normal radial pulses GI/Abdominal exam: PRESENT: normal bowel sounds, soft. ABSENT: distended, guarding, mass, organolmegaly, rebound, tenderness Rectal exam: PRESENT: deferred Musculoskeletal exam: PRESENT: other - Ischemic changes to the distal tips of fingers and toes Neurological exam: PRESENT: awake Psychiatric exam: PRESENT: flat affect Skin exam: PRESENT: dry Results Laboratory Results: 06/28/16 06:00 06/28/16 06:00 06/27/16 06/28/16 06/28/16 21:50 06:00 06:00 WBC 13.2 H RBC 3.12 L Hgb 8.6 L Hct 27.9 L MCV 89 MCH 27.6 MCHC 30.9 L RDW 17.0 H Plt Count 252 Seg Neutrophils % 90.8 H Lymphocytes % 5.4 L Monocytes % 3.4 Eosinophils % 0.0 Basophils % 0.4 Absolute Neutrophils 12.0 H Absolute Lymphocytes 0.7 Absolute Monocytes 0.4 Absolute Eosinophils 0.0 Absolute Basophils 0.1 Sodium 136.5 L Potassium 3.1 L Chloride 107 Carbon Dioxide 20 L Anion Gap 10 BUN 18 Creatinine 3.01 H 2.54 H Est GFR ( Amer) 21 L 25 L Est GFR (Non-Af Amer) 17 L 21 L Glucose 84 Calcium 6.4 L* 05/29/16 05/30/16 05/31/16 23:45 05:55 05:15 Creatine Kinase 31 CK-MB (CK-2) 1.81 1.71 Troponin I 0.069 0.094 05/31/16 05:15 Creatine Kinase CK-MB (CK-2) 1.46 Troponin I 0.079 Impressions: Chest/Abdomen CTA 05/29/16 18:00 IMPRESSION: No evidence for pulmonary embolic disease. Extensive chronic appearing changes as noted above. Small right pleural effusion is again identified which appears slightly larger than on the previous study. The previously described rounded masslike density in the right lower lobe is again identified. There is a central somewhat low density area and the possibility of a necrotic neoplasm or developing lung abscess cannot be excluded. Large pericardial effusion is again identified. Other findings as noted above Modified Barium Swallow 06/11/16 00:00 IMPRESSION: FLASH LARYNGEAL PENETRATION FROM RESIDUALS, WITHOUT ASPIRATION, SEEN WITH PUREED CONSISTENCY.PLEASE SEE SPEECH PATHOLOGIST REPORT FOR OTHER FINDINGS AND RECOMMENDATIONS. Chest X-Ray 06/11/16 06:00 IMPRESSION: NO CHANGE IN APPEARANCE OF THE CHEST Head CT 06/23/16 01:35 IMPRESSION: Prominent relative low density areas in the periventricular white matter in both parietal regions as noted above. Differential possibilities are as noted above. MRI may be of value for further evaluation. Other findings as noted above. Head MRI 06/24/16 00:00 IMPRESSION: SEVERAL LOCULATED CYSTIC LESIONS IN THE CEREBRAL HEMISPHERES BILATERALLY WITH ASSOCIATED VASOGENIC EDEMA IN THE WHITE MATTER. THIS CONDITION APPEARS TO HAVE DEVELOPED FAIRLY RAPIDLY BASED ON A NORMAL HEAD CT ON 05/18/2016. FINDINGS MAY BE DUE TO INFECTIOUS ETIOLOGY, POSSIBLE ATYPICAL ORGANISM, WITH DEVELOPMENT OF BRAIN ABSCESSES. ACUTE INFLAMMATORY PROCESS COULD BE ANOTHER POSSIBILITY. MALIGNANCY SUCH METASTATIC DISEASE IS LESS LIKELY. Assessment & Plan - Diagnosis (1) Acute hypoxemic respiratory failure Is this a current diagnosis for this admission?: Yes (2) End stage renal disease Is this a current diagnosis for this admission?: Yes (3) Lung abscess Qualifiers: Pulmonary abscess pneumonia presence: with pneumonia Laterality: right Lung location: unspecified part of lung Qualified Code(s): J85.1 - Abscess of lung with pneumonia Is this a current diagnosis for this admission?: No (4) Lung cancer Qualifiers: Laterality: unspecified laterality Lung location: unspecified part of lung Qualified Code(s): C34.90 - Malignant neoplasm of unspecified part of unspecified bronchus or lung Is this a current diagnosis for this admission?: Yes (5) Scleroderma Is this a current diagnosis for this admission?: YesPlan: See speech pathology report after modified barium swallow
--- NOTE | 2016-06-29 18:57 | PDOC PROGRESS REPORT ---
Subjective Progress Note for:: 06/29/16 Subjective:: more alert Physical Exam Vital Signs: Temp Pulse Resp BP Pulse Ox 98.1 F 94 20 143/95 H 93 06/29/16 16:27 06/29/16 14:00 06/29/16 16:27 06/29/16 16:27 06/29/16 09:51 Intake & Output 06/28/16 06/29/16 06/30/16 06:59 06:59 06:59 Intake Total 2328 1193 839 Output Total 1000 350 Balance 2328 193 489 Weight 57.1 kg 62.8 kg General appearance: PRESENT: disheveled, other - cachectic Head exam: PRESENT: atraumatic, normocephalic Eye exam: PRESENT: conjunctiva pale, EOMI Mouth exam: PRESENT: dry mucosa, neck supple Neck exam: ABSENT: carotid bruit, JVD, lymphadenopathy, thyromegaly Respiratory exam: PRESENT: crackles, decreased breath sounds, prolonged expiratory phas, rhonchi, symmetrical, unlabored Cardiovascular exam: PRESENT: irregular rhythm Pulses: PRESENT: normal dorsalis pedis pul GI/Abdominal exam: PRESENT: normal bowel sounds, soft, other. ABSENT: distended , guarding, mass, organolmegaly, rebound, tenderness Rectal exam: PRESENT: deferred Gentrourinary exam: PRESENT: indwelling catheter Musculoskeletal exam: PRESENT: normal inspection Neurological exam: PRESENT: alert, awake Skin exam: PRESENT: dry, warm Results Laboratory Results: 06/28/16 06:00 06/28/16 06:00 05/29/16 05/30/16 05/31/16 23:45 05:55 05:15 Creatine Kinase 31 CK-MB (CK-2) 1.81 1.71 Troponin I 0.069 0.094 05/31/16 05:15 Creatine Kinase CK-MB (CK-2) 1.46 Troponin I 0.079 Impressions: Chest/Abdomen CTA 05/29/16 18:00 IMPRESSION: No evidence for pulmonary embolic disease. Extensive chronic appearing changes as noted above. Small right pleural effusion is again identified which appears slightly larger than on the previous study. The previously described rounded masslike density in the right lower lobe is again identified. There is a central somewhat low density area and the possibility of a necrotic neoplasm or developing lung abscess cannot be excluded. Large pericardial effusion is again identified. Other findings as noted above Modified Barium Swallow 06/11/16 00:00 IMPRESSION: FLASH LARYNGEAL PENETRATION FROM RESIDUALS, WITHOUT ASPIRATION, SEEN WITH PUREED CONSISTENCY.PLEASE SEE SPEECH PATHOLOGIST REPORT FOR OTHER FINDINGS AND RECOMMENDATIONS. Chest X-Ray 06/11/16 06:00 IMPRESSION: NO CHANGE IN APPEARANCE OF THE CHEST Head CT 06/23/16 01:35 IMPRESSION: Prominent relative low density areas in the periventricular white matter in both parietal regions as noted above. Differential possibilities are as noted above. MRI may be of value for further evaluation. Other findings as noted above. Head MRI 06/24/16 00:00 IMPRESSION: SEVERAL LOCULATED CYSTIC LESIONS IN THE CEREBRAL HEMISPHERES BILATERALLY WITH ASSOCIATED VASOGENIC EDEMA IN THE WHITE MATTER. THIS CONDITION APPEARS TO HAVE DEVELOPED FAIRLY RAPIDLY BASED ON A NORMAL HEAD CT ON 05/18/2016. FINDINGS MAY BE DUE TO INFECTIOUS ETIOLOGY, POSSIBLE ATYPICAL ORGANISM, WITH DEVELOPMENT OF BRAIN ABSCESSES. ACUTE INFLAMMATORY PROCESS COULD BE ANOTHER POSSIBILITY. MALIGNANCY SUCH METASTATIC DISEASE IS LESS LIKELY. Assessment & Plan - Diagnosis (1) Acute hypoxemic respiratory failure Is this a current diagnosis for this admission?: Yes (2) End stage renal disease Is this a current diagnosis for this admission?: Yes (3) Lung abscess Qualifiers: Pulmonary abscess pneumonia presence: with pneumonia Laterality: right Lung location: unspecified part of lung Qualified Code(s): J85.1 - Abscess of lung with pneumonia Is this a current diagnosis for this admission?: No (4) Lung cancer Qualifiers: Laterality: unspecified laterality Lung location: unspecified part of lung Qualified Code(s): C34.90 - Malignant neoplasm of unspecified part of unspecified bronchus or lung Is this a current diagnosis for this admission?: Yes (5) Scleroderma Is this a current diagnosis for this admission?: Yes
--- NOTE | 2016-06-29 19:39 | PDOC PROGRESS REPORT ---
Subjective Progress Note for:: 06/29/16 Subjective:: Patient seen today on morning rounds Basically still the same and may have deteriorated some. Seems very debilitated and emaciated. Since my last visit, patient now been diagnosed to have possible cerebral abscess with cystic lesion versus metastasis. Patient noted to be intermittently tachycardic and tachypneic. Patient noted to have signs of dry gangrene on fingertips, medial 3 fingers and also on one of the toe on the left foot. Patient has become more emaciated. No other significant change in patient condition. Patient just seems to be wasting away. Patient CODE STATUS is now DO NOT RESUSCITATE. Physical Exam Vital Signs: Temp Pulse Resp BP Pulse Ox 98.1 F 94 20 143/95 H 93 06/29/16 16:27 06/29/16 14:00 06/29/16 16:27 06/29/16 16:27 06/29/16 09:51 Intake & Output 06/28/16 06/29/16 06/30/16 06:59 06:59 06:59 Intake Total 2328 1193 859 Output Total 1000 550 Balance 2328 193 309 Weight 57.1 kg 62.8 kg Exam: GENERAL: Emaciated and cachectic and in no acute distress. Alert and oriented x3 HEAD: Atraumatic, normocephalic. Patient looks very debilitated and somewhat cachectic. EYES: Pupils equal round and reactive to light, extraocular movements intact, sclera anicteric, conjunctiva are normal. ENT: TMs normal, nares patent, oropharynx clear without exudates. Moist mucous membranes. No oral ulcerations or bleeding gums noted NECK: supple without lymphadenopathy. Trachea is central. No cervical or axillary lymphadenopathy noted. Carotids are 2+, JVD WNL LUNGS: Respiration seems nonlabored, no significant accessory muscle action noted. Breath sounds clear to auscultation bilaterally and equal noted. No wheezes rales or rhonchi noted. No significant dullness noted on percussion. CHEST: Palpation of the chest wall shows no significant chest wall tenderness. No other significant abnormalities noted. HEART: [place] [employer] TAPE CONTROL, No PSH, 1/6 JACQUES aortic area, 1/6 brewer systolic murmur mitral area, no rubs, no gallops. ABDOMEN: Soft, no significant tenderness appreciated, normoactive bowel sounds. No guarding, no rebound. No rigidity noted . No masses appreciated. EXTREMITIES: Pedal pulses are markedly diminished +, no calf tenderness noted. No clubbing or cyanosis.1+ pedal edema noted. Ulcerations noted on tip toes and also some fingers tips. The mostly dry ulcerations and small. There is wasting of fingers and toes. In addition patient noted to have dry gangrene of medial 3 fingertips of her left hand. In addition she has dry gangrene of one of the toes on her left foot. NEUROLOGICAL: Focused neurological exam showed no significant neurologic deficit. Normal speech, generalized weakness appreciated. Patient has low volume of speech. PSYCH: Mood is possibly depressed. Judgment and insight within normal limits. SKIN: No significant ecchymosis, rash, signs of pruritus noted. Significant to scleroderma changes are noted. As noted findings under extremity exam MUSCULOSKELETAL EXAM: No significant joint swelling noted. Patient has marked generalized weakness and wasting of muscles. Results Laboratory Results: 06/28/16 06:00 06/28/16 06:00 05/29/16 05/30/16 05/31/16 23:45 05:55 05:15 Creatine Kinase 31 CK-MB (CK-2) 1.81 1.71 Troponin I 0.069 0.094 05/31/16 05:15 Creatine Kinase CK-MB (CK-2) 1.46 Troponin I 0.079 Impressions: Chest/Abdomen CTA 05/29/16 18:00 IMPRESSION: No evidence for pulmonary embolic disease. Extensive chronic appearing changes as noted above. Small right pleural effusion is again identified which appears slightly larger than on the previous study. The previously described rounded masslike density in the right lower lobe is again identified. There is a central somewhat low density area and the possibility of a necrotic neoplasm or developing lung abscess cannot be excluded. Large pericardial effusion is again identified. Other findings as noted above Modified Barium Swallow 06/11/16 00:00 IMPRESSION: FLASH LARYNGEAL PENETRATION FROM RESIDUALS, WITHOUT ASPIRATION, SEEN WITH PUREED CONSISTENCY.PLEASE SEE SPEECH PATHOLOGIST REPORT FOR OTHER FINDINGS AND RECOMMENDATIONS. Chest X-Ray 06/11/16 06:00 IMPRESSION: NO CHANGE IN APPEARANCE OF THE CHEST Head CT 06/23/16 01:35 IMPRESSION: Prominent relative low density areas in the periventricular white matter in both parietal regions as noted above. Differential possibilities are as noted above. MRI may be of value for further evaluation. Other findings as noted above. Head MRI 06/24/16 00:00 IMPRESSION: SEVERAL LOCULATED CYSTIC LESIONS IN THE CEREBRAL HEMISPHERES BILATERALLY WITH ASSOCIATED VASOGENIC EDEMA IN THE WHITE MATTER. THIS CONDITION APPEARS TO HAVE DEVELOPED FAIRLY RAPIDLY BASED ON A NORMAL HEAD CT ON 05/18/2016. FINDINGS MAY BE DUE TO INFECTIOUS ETIOLOGY, POSSIBLE ATYPICAL ORGANISM, WITH DEVELOPMENT OF BRAIN ABSCESSES. ACUTE INFLAMMATORY PROCESS COULD BE ANOTHER POSSIBILITY. MALIGNANCY SUCH METASTATIC DISEASE IS LESS LIKELY. Assessment & Plan - Diagnosis (1) Acute hypoxemic respiratory failure Is this a current diagnosis for this admission?: Yes (2) End stage renal disease Is this a current diagnosis for this admission?: Yes (3) Lung cancer Qualifiers: Laterality: unspecified laterality Lung location: unspecified part of lung Qualified Code(s): C34.90 - Malignant neoplasm of unspecified part of unspecified bronchus or lung Is this a current diagnosis for this admission?: Yes (4) Septic shock Is this a current diagnosis for this admission?: Yes (5) Pulmonary fibrosis Is this a current diagnosis for this admission?: Yes (6) Scleroderma Is this a current diagnosis for this admission?: Yes (7) Cardiomyopathy Qualifiers: Cardiomyopathy type: unspecified Qualified Code(s): I42.9 - Cardiomyopathy, unspecified Is this a current diagnosis for this admission?: Yes (8) Cerebral abscess Is this a current diagnosis for this admission?: Yes - Notes Notes: Patient seems to be progressively deteriorating with multiple advancing comorbid diagnosis. Overall prognosis is poor. Cardiac-rand she is maintaining adequate pulse and blood pressure. Continue with current cardiac regimen. Agree with DO NOT RESUSCITATE status. - Time Time with patient: 15-25 minutes
--- NOTE | 2016-06-29 20:47 | PDOC PROGRESS REPORT ---
Subjective Progress Note for:: 06/29/16 Subjective:: Patient's overall condition is extremely poor peritoneum was inserted yesterday and the plan is to commence tube feeding today. Physically patient does not seem to be able to tolerate physical therapy in a shelter home the plan is for transfer to shelter home but overall patient's condition is extremely poor. She also have stage 3 sacral decubitus ulcer Physical Exam Vital Signs: Temp Pulse Resp BP Pulse Ox 98.1 F 94 20 143/95 H 93 06/29/16 16:27 06/29/16 14:00 06/29/16 16:27 06/29/16 16:27 06/29/16 09:51 Intake & Output 06/28/16 06/29/16 06/30/16 06:59 06:59 06:59 Intake Total 2328 1193 859 Output Total 1000 550 Balance 2328 193 309 Weight 57.1 kg 62.8 kg General appearance: PRESENT: severe distress Head exam: PRESENT: atraumatic Eye exam: PRESENT: PERRLA Neck exam: PRESENT: other Respiratory exam: PRESENT: tachypnea Cardiovascular exam: PRESENT: +S1, +S2 GI/Abdominal exam: PRESENT: soft Neurological exam: PRESENT: alert Results Laboratory Results: 06/28/16 06:00 06/28/16 06:00 05/29/16 05/30/16 05/31/16 23:45 05:55 05:15 Creatine Kinase 31 CK-MB (CK-2) 1.81 1.71 Troponin I 0.069 0.094 05/31/16 05:15 Creatine Kinase CK-MB (CK-2) 1.46 Troponin I 0.079 Impressions: Chest/Abdomen CTA 05/29/16 18:00 IMPRESSION: No evidence for pulmonary embolic disease. Extensive chronic appearing changes as noted above. Small right pleural effusion is again identified which appears slightly larger than on the previous study. The previously described rounded masslike density in the right lower lobe is again identified. There is a central somewhat low density area and the possibility of a necrotic neoplasm or developing lung abscess cannot be excluded. Large pericardial effusion is again identified. Other findings as noted above Modified Barium Swallow 06/11/16 00:00 IMPRESSION: FLASH LARYNGEAL PENETRATION FROM RESIDUALS, WITHOUT ASPIRATION, SEEN WITH PUREED CONSISTENCY.PLEASE SEE SPEECH PATHOLOGIST REPORT FOR OTHER FINDINGS AND RECOMMENDATIONS. Chest X-Ray 06/11/16 06:00 IMPRESSION: NO CHANGE IN APPEARANCE OF THE CHEST Head CT 06/23/16 01:35 IMPRESSION: Prominent relative low density areas in the periventricular white matter in both parietal regions as noted above. Differential possibilities are as noted above. MRI may be of value for further evaluation. Other findings as noted above. Head MRI 06/24/16 00:00 IMPRESSION: SEVERAL LOCULATED CYSTIC LESIONS IN THE CEREBRAL HEMISPHERES BILATERALLY WITH ASSOCIATED VASOGENIC EDEMA IN THE WHITE MATTER. THIS CONDITION APPEARS TO HAVE DEVELOPED FAIRLY RAPIDLY BASED ON A NORMAL HEAD CT ON 05/18/2016. FINDINGS MAY BE DUE TO INFECTIOUS ETIOLOGY, POSSIBLE ATYPICAL ORGANISM, WITH DEVELOPMENT OF BRAIN ABSCESSES. ACUTE INFLAMMATORY PROCESS COULD BE ANOTHER POSSIBILITY. MALIGNANCY SUCH METASTATIC DISEASE IS LESS LIKELY. Assessment & Plan - Diagnosis (1) Acute hypoxemic respiratory failure Is this a current diagnosis for this admission?: Yes (2) Lung cancer Qualifiers: Laterality: unspecified laterality Lung location: unspecified part of lung Qualified Code(s): C34.90 - Malignant neoplasm of unspecified part of unspecified bronchus or lung Is this a current diagnosis for this admission?: Yes (3) Lung abscess Qualifiers: Pulmonary abscess pneumonia presence: with pneumonia Laterality: right Lung location: unspecified part of lung Qualified Code(s): J85.1 - Abscess of lung with pneumonia Is this a current diagnosis for this admission?: No (4) End stage renal disease Is this a current diagnosis for this admission?: Yes (5) Cardiac arrest Is this a current diagnosis for this admission?: Yes (6) Cardiogenic shock Is this a current diagnosis for this admission?: Yes (7) Septic shock Is this a current diagnosis for this admission?: Yes (8) Hypoglycemia Is this a current diagnosis for this admission?: Yes (9) Anorexia Is this a current diagnosis for this admission?: Yes (10) Gangrene of toe Is this a current diagnosis for this admission?: Yes (11) Malignant cachexia Is this a current diagnosis for this admission?: Yes (12) New onset seizure Is this a current diagnosis for this admission?: Yes (13) Cerebral abscess Is this a current diagnosis for this admission?: Yes (14) Esophageal stricture Is this a current diagnosis for this admission?: Yes (15) Sacral decubitus ulcer, stage II Is this a current diagnosis for this admission?: Yes - Plan Summary Plan Summary: Patient's condition is extremely poor consultation is requested from surgery she probably needs to be hospice at this point of her disease
[2016-06-29] MEDS ORDERED: INSULIN LISPRO 100 UNIT/ML 3 ML VIAL SUBCUT PRN (23:15)
[2016-06-30] MEDS: METRONIDAZOLE 500 MG/NS RTU 100 ML IV SCH ×3 (06:16→17:30)
[2016-06-30] MEDS: HEPARIN SOD (PORCINE) 5,000 UNIT/ML 1 ML SYRINGE SUBCUT SCH ×3 (06:17→23:10)
[2016-06-30] MEDS: HYDRALAZINE HCL 10 MG TABLET PO SCH ×3 (06:18→23:11)
[2016-06-30] MEDS: DEXTROSE 10%-WATER 1,000 ML IV PRN (06:19)
[2016-06-30] MEDS: MORPHINE SULFATE 10 MG/ML INJ IV PRN ×3 (06:48→20:12)
[2016-06-30] MEDS: LORAZEPAM INJ 2 MG/1 ML VIAL IV PRN ×2 (06:48→19:52)
[2016-06-30 07:02] LABS: ANION GAP 11 (5-19); BLOOD UREA NITROGEN 22 mg/dL (7-20); CALCIUM 7.8 mg/dL (8.4-10.2); CARBON DIOXIDE 22 mmol/L (22-30); CHLORIDE 103 mmol/L (98-107); CREATININE RESULT 3.06 mg/dL (0.52-1.25); GLUCOSE 113 mg/dL (75-110); POTASSIUM 3.6 mmol/L (3.6-5.0); SODIUM 135.5 mmol/L (137-145)
[2016-06-30 07:03] LABS: HEMATOCRIT 28.5 % (36.0-47.0); HEMOGLOBIN 8.9 g/dL (12.0-15.5); HGB HCT DIFFERENCE -1.8; MEAN CORPUSCULAR HGB CONC 31.2 g/dL (32.0-36.0); MEAN CORPUSCULAR VOLUME 90 fl (80-97); RED BLOOD COUNT 3.18 10^6/uL (3.72-5.28); RED CELL DISTRIBUTION WIDTH 18.1 % (11.5-14.0); WHITE BLOOD COUNT 18.6 10^3/uL (4.0-10.5)
[2016-06-30 07:49] LABS: ANISOCYTOSIS 2+; BAND NEUTROPHILS % (MANUAL) 2 % (3-5); BASOPHILS % (MANUAL) 0 % (0-2); EOSINOPHILS % (MANUAL) 0 % (0-6); HYPOCHROMASIA 2+; LYMPHOCYTES % (MANUAL) 2 % (13-45); OVALOCYTES 2+; POIKILOCYTOSIS 2+; POLYCHROMASIA 1+; SCHISTOCYTES SLIGHT; TOTAL CELLS COUNTED 100; TOXIC GRANULATION SLIGHT; TOXIC VACUOLATION PRESENT
[2016-06-30] MEDS ORDERED: EPOETIN ALFA 25,000 UNIT in SYRINGE, DISPOSABLE, 1 EACH IV PRN (08:56)
[2016-06-30] MEDS: DEXAMETHASONE SOD PHOSPHATE INJ 4 MG/1 ML VIAL IV SCH ×2 (11:03→19:51)
[2016-06-30] MEDS: MEGESTROL ACETATE SUSP 400 MG/10 ML UDCUP PO SCH (11:03)
[2016-06-30] MEDS: LANSOPRAZOLE 30 MG TAB.RAP.DR PO SCH (11:03)
[2016-06-30] MEDS: LISINOPRIL 10 MG TABLET PO SCH ×2 (11:04→23:11)
[2016-06-30] MEDS: CILOSTAZOL 100 MG TABLET PO SCH ×2 (11:04→15:29)
[2016-06-30] MEDS: CARVEDILOL 12.5 MG TABLET PO SCH ×2 (11:04→23:10)
[2016-06-30] MEDS: LEVETIRACETAM 500 MG/NACL-ISO 500 MG/100 ML RTUPB IV SCH ×2 (11:05→19:51)
[2016-06-30] MEDS: PIPERACILLIN SODIUM/TAZOBACTAM 2.25 GM in NORMAL SALINE 50 ML IV SCH ×2 (11:05→23:08)
[2016-06-30] MEDS: NYSTATIN/DEXAMETH/DIPHEN SUSP 120 ML PO SCH ×4 (11:06→23:12)
[2016-06-30] MEDS: NYSTATIN TOPICAL POWDER 15 GM TP SCH ×2 (11:12→17:32)
[2016-06-30] MEDS: IPRATROPIUM/ALBUTEROL 0.5-2.5 MG/3 ML AMPUL NEB PRN (13:01)
--- NOTE | 2016-06-30 17:04 | PDOC PROGRESS REPORT ---
Subjective Progress Note for:: 06/30/16 Subjective:: Patient seen by the bedside,she has a feeding tube ,she is extremely debilitated Physical Exam Vital Signs: Temp Pulse Resp BP Pulse Ox 97.6 F 122 H 18 129/12 H 97 06/30/16 12:00 06/30/16 14:00 06/30/16 13:01 06/30/16 12:00 06/30/16 13:01 Intake & Output 06/29/16 06/30/16 07/01/16 06:59 06:59 06:59 Intake Total 1193 1517 Output Total 1000 550 Balance 193 967 Weight 62.8 kg 64.4 kg General appearance: PRESENT: no acute distress Eye exam: PRESENT: PERRLA Cardiovascular exam: PRESENT: +S1, +S2 Neurological exam: PRESENT: alert Results Laboratory Results: 06/30/16 06:35 06/30/16 06:35 06/30/16 06/30/16 06:35 06:35 WBC 18.6 H RBC 3.18 L Hgb 8.9 L Hct 28.5 L MCV 90 MCH 28.0 MCHC 31.2 L RDW 18.1 H Plt Count 230 Seg Neutrophils % Not Reportable Lymphocytes % Not Reportable Monocytes % Not Reportable Eosinophils % Not Reportable Basophils % Not Reportable Absolute Neutrophils Not Reportable Absolute Lymphocytes Not Reportable Absolute Monocytes Not Reportable Absolute Eosinophils Not Reportable Absolute Basophils Not Reportable Sodium 135.5 L Potassium 3.6 Chloride 103 Carbon Dioxide 22 Anion Gap 11 BUN 22 H Creatinine 3.06 H Est GFR ( Amer) 20 L Est GFR (Non-Af Amer) 17 L Glucose 113 H Calcium 7.8 L 05/29/16 05/30/16 05/31/16 23:45 05:55 05:15 Creatine Kinase 31 CK-MB (CK-2) 1.81 1.71 Troponin I 0.069 0.094 05/31/16 05:15 Creatine Kinase CK-MB (CK-2) 1.46 Troponin I 0.079 Impressions: Chest/Abdomen CTA 05/29/16 18:00 IMPRESSION: No evidence for pulmonary embolic disease. Extensive chronic appearing changes as noted above. Small right pleural effusion is again identified which appears slightly larger than on the previous study. The previously described rounded masslike density in the right lower lobe is again identified. There is a central somewhat low density area and the possibility of a necrotic neoplasm or developing lung abscess cannot be excluded. Large pericardial effusion is again identified. Other findings as noted above Modified Barium Swallow 06/11/16 00:00 IMPRESSION: FLASH LARYNGEAL PENETRATION FROM RESIDUALS, WITHOUT ASPIRATION, SEEN WITH PUREED CONSISTENCY.PLEASE SEE SPEECH PATHOLOGIST REPORT FOR OTHER FINDINGS AND RECOMMENDATIONS. Chest X-Ray 06/11/16 06:00 IMPRESSION: NO CHANGE IN APPEARANCE OF THE CHEST Head CT 06/23/16 01:35 IMPRESSION: Prominent relative low density areas in the periventricular white matter in both parietal regions as noted above. Differential possibilities are as noted above. MRI may be of value for further evaluation. Other findings as noted above. Head MRI 06/24/16 00:00 IMPRESSION: SEVERAL LOCULATED CYSTIC LESIONS IN THE CEREBRAL HEMISPHERES BILATERALLY WITH ASSOCIATED VASOGENIC EDEMA IN THE WHITE MATTER. THIS CONDITION APPEARS TO HAVE DEVELOPED FAIRLY RAPIDLY BASED ON A NORMAL HEAD CT ON 05/18/2016. FINDINGS MAY BE DUE TO INFECTIOUS ETIOLOGY, POSSIBLE ATYPICAL ORGANISM, WITH DEVELOPMENT OF BRAIN ABSCESSES. ACUTE INFLAMMATORY PROCESS COULD BE ANOTHER POSSIBILITY. MALIGNANCY SUCH METASTATIC DISEASE IS LESS LIKELY. Assessment & Plan - Diagnosis (1) Acute hypoxemic respiratory failure Is this a current diagnosis for this admission?: Yes (2) Lung cancer Qualifiers: Laterality: unspecified laterality Lung location: unspecified part of lung Qualified Code(s): C34.90 - Malignant neoplasm of unspecified part of unspecified bronchus or lung Is this a current diagnosis for this admission?: Yes (3) Lung abscess Qualifiers: Pulmonary abscess pneumonia presence: with pneumonia Laterality: right Lung location: unspecified part of lung Qualified Code(s): J85.1 - Abscess of lung with pneumonia Is this a current diagnosis for this admission?: No (4) End stage renal disease Is this a current diagnosis for this admission?: Yes (5) Cardiac arrest Is this a current diagnosis for this admission?: Yes (6) Cardiogenic shock Is this a current diagnosis for this admission?: Yes (7) Septic shock Is this a current diagnosis for this admission?: Yes (8) Hypoglycemia Is this a current diagnosis for this admission?: Yes (9) Anorexia Is this a current diagnosis for this admission?: Yes (10) Gangrene of toe Is this a current diagnosis for this admission?: Yes (11) Malignant cachexia Is this a current diagnosis for this admission?: Yes (12) New onset seizure Is this a current diagnosis for this admission?: Yes (13) Cerebral abscess Is this a current diagnosis for this admission?: Yes (14) Esophageal stricture Is this a current diagnosis for this admission?: Yes (15) Sacral decubitus ulcer, stage II Is this a current diagnosis for this admission?: Yes
[2016-06-30] MEDS ORDERED: VANCOMYCIN HCL 750 MG in DEXTROSE 5%-WATER 250 ML IV SCH (18:00)
[2016-06-30] MEDS: METOPROLOL TARTRATE PF/INJ 5 MG/5 ML SDV IV PRN (19:51)
--- NOTE | 2016-06-30 20:04 | PDOC PROGRESS REPORT ---
Subjective Progress Note for:: 06/30/16 Subjective:: Patient seen today on morning rounds Basically still the same. Patient did have dialysis. Seems very debilitated and emaciated. Patient noted to have signs of dry gangrene on fingertips, medial 3 fingers and also on one of the toe on the left foot. Patient has become more emaciated. No other significant change in patient condition. Patient just seems to be wasting away. Patient CODE STATUS is now DO NOT RESUSCITATE. Physical Exam Vital Signs: Temp Pulse Resp BP Pulse Ox 97.5 F 63 16 140/92 H 97 06/30/16 15:53 06/30/16 15:53 06/30/16 15:53 06/30/16 15:53 06/30/16 13:01 Intake & Output 06/29/16 06/30/16 07/01/16 06:59 06:59 06:59 Intake Total 1193 1517 1524 Output Total 1000 550 Balance 074 325 9165 Weight 62.8 kg 64.4 kg Exam: No significant change in patient condition since yesterday. Results Laboratory Results: 06/30/16 06:35 06/30/16 06:35 06/30/16 06/30/16 06:35 06:35 WBC 18.6 H RBC 3.18 L Hgb 8.9 L Hct 28.5 L MCV 90 MCH 28.0 MCHC 31.2 L RDW 18.1 H Plt Count 230 Seg Neutrophils % Not Reportable Lymphocytes % Not Reportable Monocytes % Not Reportable Eosinophils % Not Reportable Basophils % Not Reportable Absolute Neutrophils Not Reportable Absolute Lymphocytes Not Reportable Absolute Monocytes Not Reportable Absolute Eosinophils Not Reportable Absolute Basophils Not Reportable Sodium 135.5 L Potassium 3.6 Chloride 103 Carbon Dioxide 22 Anion Gap 11 BUN 22 H Creatinine 3.06 H Est GFR ( Amer) 20 L Est GFR (Non-Af Amer) 17 L Glucose 113 H Calcium 7.8 L 05/29/16 05/30/16 05/31/16 23:45 05:55 05:15 Creatine Kinase 31 CK-MB (CK-2) 1.81 1.71 Troponin I 0.069 0.094 05/31/16 05:15 Creatine Kinase CK-MB (CK-2) 1.46 Troponin I 0.079 Impressions: Chest/Abdomen CTA 05/29/16 18:00 IMPRESSION: No evidence for pulmonary embolic disease. Extensive chronic appearing changes as noted above. Small right pleural effusion is again identified which appears slightly larger than on the previous study. The previously described rounded masslike density in the right lower lobe is again identified. There is a central somewhat low density area and the possibility of a necrotic neoplasm or developing lung abscess cannot be excluded. Large pericardial effusion is again identified. Other findings as noted above Modified Barium Swallow 06/11/16 00:00 IMPRESSION: FLASH LARYNGEAL PENETRATION FROM RESIDUALS, WITHOUT ASPIRATION, SEEN WITH PUREED CONSISTENCY.PLEASE SEE SPEECH PATHOLOGIST REPORT FOR OTHER FINDINGS AND RECOMMENDATIONS. Chest X-Ray 06/11/16 06:00 IMPRESSION: NO CHANGE IN APPEARANCE OF THE CHEST Head CT 06/23/16 01:35 IMPRESSION: Prominent relative low density areas in the periventricular white matter in both parietal regions as noted above. Differential possibilities are as noted above. MRI may be of value for further evaluation. Other findings as noted above. Head MRI 06/24/16 00:00 IMPRESSION: SEVERAL LOCULATED CYSTIC LESIONS IN THE CEREBRAL HEMISPHERES BILATERALLY WITH ASSOCIATED VASOGENIC EDEMA IN THE WHITE MATTER. THIS CONDITION APPEARS TO HAVE DEVELOPED FAIRLY RAPIDLY BASED ON A NORMAL HEAD CT ON 05/18/2016. FINDINGS MAY BE DUE TO INFECTIOUS ETIOLOGY, POSSIBLE ATYPICAL ORGANISM, WITH DEVELOPMENT OF BRAIN ABSCESSES. ACUTE INFLAMMATORY PROCESS COULD BE ANOTHER POSSIBILITY. MALIGNANCY SUCH METASTATIC DISEASE IS LESS LIKELY. Assessment & Plan - Diagnosis (1) Acute hypoxemic respiratory failure Is this a current diagnosis for this admission?: Yes (2) End stage renal disease Is this a current diagnosis for this admission?: Yes (3) Lung cancer Qualifiers: Laterality: unspecified laterality Lung location: unspecified part of lung Qualified Code(s): C34.90 - Malignant neoplasm of unspecified part of unspecified bronchus or lung Is this a current diagnosis for this admission?: Yes (4) Septic shock Is this a current diagnosis for this admission?: Yes (5) Pulmonary fibrosis Is this a current diagnosis for this admission?: Yes (6) Scleroderma Is this a current diagnosis for this admission?: Yes (7) Cardiomyopathy Qualifiers: Cardiomyopathy type: unspecified Qualified Code(s): I42.9 - Cardiomyopathy, unspecified Is this a current diagnosis for this admission?: Yes (8) Cerebral abscess Is this a current diagnosis for this admission?: Yes - Notes Notes: Patient just gradually deteriorating. No therapeutic options left. Will sign off. Recent consult if needed. - Time Time with patient: Less than 15 minutes
--- NOTE | 2016-06-30 20:55 | PDOC PROGRESS REPORT ---
Subjective Progress Note for:: 06/30/16 Subjective:: I saw the patient on dialysis this morning at around 8:40 AM. She doesn't have any new complaints. He just complained of the same pain on her feet and right arm. She was able to tolerate dialysis. She is now being fed through the PEG tube. Physical Exam Vital Signs: Temp Pulse Resp BP Pulse Ox 97.5 F 63 16 140/92 H 97 06/30/16 15:53 06/30/16 15:53 06/30/16 15:53 06/30/16 15:53 06/30/16 13:01 Intake & Output 06/29/16 06/30/16 07/01/16 06:59 06:59 06:59 Intake Total 1193 1517 1524 Output Total 7553 644 1926 Balance 193 967 524 Weight 62.8 kg 64.4 kg Vital signs during dialysis: Blood pressure 116/79, heart rate 61, blood flow rate 300 mL per minute, dialysate flow rate of 600 mL per minute. Exam: General appearance: PRESENT: no acute distress, cooperative, well-developed, well-nourished Head exam: PRESENT: atraumatic, normocephalic Eye exam: PRESENT: conjunctiva pink, PERRLA. ABSENT: scleral icterus Neck exam: ABSENT: JVD Respiratory exam: PRESENT: Diminished breath sounds. ABSENT: crackles, rales, rhonchi, unlabored, wheezes Cardiovascular exam: PRESENT: Irregular rate rhythm -+S1, +S2. ABSENT: diastolic murmur, systolic murmur GI/Abdominal exam: PRESENT: normal bowel sounds, soft. ABSENT: guarding, mass, tenderness Extremities exam: Grade 1 bilateral pitting lower extremity edema Neurological exam: PRESENT: alert, awake, oriented to person, place and time. Skin exam: PRESENT: dry, warm, Cardiovascular exam: PRESENT: +S1, +S2, systolic murmur GI/Abdominal exam: PRESENT: normal bowel sounds, soft. ABSENT: distended, firm , tenderness Results Laboratory Results: 06/30/16 06:35 06/30/16 06:35 06/30/16 06/30/16 06:35 06:35 WBC 18.6 H RBC 3.18 L Hgb 8.9 L Hct 28.5 L MCV 90 MCH 28.0 MCHC 31.2 L RDW 18.1 H Plt Count 230 Seg Neutrophils % Not Reportable Lymphocytes % Not Reportable Monocytes % Not Reportable Eosinophils % Not Reportable Basophils % Not Reportable Absolute Neutrophils Not Reportable Absolute Lymphocytes Not Reportable Absolute Monocytes Not Reportable Absolute Eosinophils Not Reportable Absolute Basophils Not Reportable Sodium 135.5 L Potassium 3.6 Chloride 103 Carbon Dioxide 22 Anion Gap 11 BUN 22 H Creatinine 3.06 H Est GFR ( Amer) 20 L Est GFR (Non-Af Amer) 17 L Glucose 113 H Calcium 7.8 L 05/29/16 05/30/16 05/31/16 23:45 05:55 05:15 Creatine Kinase 31 CK-MB (CK-2) 1.81 1.71 Troponin I 0.069 0.094 05/31/16 05:15 Creatine Kinase CK-MB (CK-2) 1.46 Troponin I 0.079 Impressions: Chest/Abdomen CTA 05/29/16 18:00 IMPRESSION: No evidence for pulmonary embolic disease. Extensive chronic appearing changes as noted above. Small right pleural effusion is again identified which appears slightly larger than on the previous study. The previously described rounded masslike density in the right lower lobe is again identified. There is a central somewhat low density area and the possibility of a necrotic neoplasm or developing lung abscess cannot be excluded. Large pericardial effusion is again identified. Other findings as noted above Modified Barium Swallow 06/11/16 00:00 IMPRESSION: FLASH LARYNGEAL PENETRATION FROM RESIDUALS, WITHOUT ASPIRATION, SEEN WITH PUREED CONSISTENCY.PLEASE SEE SPEECH PATHOLOGIST REPORT FOR OTHER FINDINGS AND RECOMMENDATIONS. Chest X-Ray 06/11/16 06:00 IMPRESSION: NO CHANGE IN APPEARANCE OF THE CHEST Head CT 06/23/16 01:35 IMPRESSION: Prominent relative low density areas in the periventricular white matter in both parietal regions as noted above. Differential possibilities are as noted above. MRI may be of value for further evaluation. Other findings as noted above. Head MRI 06/24/16 00:00 IMPRESSION: SEVERAL LOCULATED CYSTIC LESIONS IN THE CEREBRAL HEMISPHERES BILATERALLY WITH ASSOCIATED VASOGENIC EDEMA IN THE WHITE MATTER. THIS CONDITION APPEARS TO HAVE DEVELOPED FAIRLY RAPIDLY BASED ON A NORMAL HEAD CT ON 05/18/2016. FINDINGS MAY BE DUE TO INFECTIOUS ETIOLOGY, POSSIBLE ATYPICAL ORGANISM, WITH DEVELOPMENT OF BRAIN ABSCESSES. ACUTE INFLAMMATORY PROCESS COULD BE ANOTHER POSSIBILITY. MALIGNANCY SUCH METASTATIC DISEASE IS LESS LIKELY. Assessment & Plan - Diagnosis (1) End stage renal disease Is this a current diagnosis for this admission?: YesPlan: We did dialysis today for 3 hours, using the patient's arm, with 2 potassium bath, blood flow rate of 300 mL per minute, dialysate flow rate of 600 mL per minute, ultrafiltration 1 L, no heparin and Procrit with 20,000 units during dialysis intravenously. She tolerated dialysis well. (2) Anemia Is this a current diagnosis for this admission?: YesPlan: We will give Procrit as needed. (3) Hypoglycemia Is this a current diagnosis for this admission?: YesPlan: Improved. Now on tube feeding. (4) Malignant cachexia Is this a current diagnosis for this admission?: Yes (5) Cerebral abscess Is this a current diagnosis for this admission?: Yes (6) Lung abscess Qualifiers: Pulmonary abscess pneumonia presence: with pneumonia Laterality: right Lung location: unspecified part of lung Qualified Code(s): J85.1 - Abscess of lung with pneumonia Is this a current diagnosis for this admission?: No (7) Lung cancer Qualifiers: Laterality: unspecified laterality Lung location: unspecified part of lung Qualified Code(s): C34.90 - Malignant neoplasm of unspecified part of unspecified bronchus or lung Is this a current diagnosis for this admission?: Yes (8) HTN (hypertension) Qualifiers: Hypertension type: essential hypertension Qualified Code(s): I10 - Essential (primary) hypertension Is this a current diagnosis for this admission?: Yes (9) Scleroderma Is this a current diagnosis for this admission?: Yes (10) Failure to thrive Is this a current diagnosis for this admission?: YesPlan: Currently started on PEG tube feeding with Nepro. - Time Time with patient: 15-25 minutes
--- NOTE | 2016-06-30 21:08 | OPERATIVE REPORT E ---
Operative Report NAME: FELISA MILES : 1975 AGE: 40Y DATE OF SURGERY: 06/30/2016 ROOM: 320 PREOPERATIVE DIAGNOSIS: Decubitus ulcer of the sacrum with necrotic tissue. POSTOPERATIVE DIAGNOSIS: Decubitus ulcer of the sacrum with necrotic tissue. OPERATION: Sharp debridement of 5 x 6 cm sacral decubitus ulcer down to the bone. SURGEON: GREG CLINTON M.D. PROCEDURE: The patient was placed in right lateral decubitus position, and the area cleaned. The necrotic tissue was subsequently sharply debrided around the ulcer. The ulcer has the sacral bone appears to be exposed. The patient is very cachectic because of malignancy and, therefore, had a very thin subcutaneous layer. The debridement was done up to normal tissue where the patient just slightly bled. Pressure applied on the bleeding site, and it stopped. Order for wet-to-dry dressings twice a day was given. DICTATING PHYSICIAN: GREG CLINTON M.D. [id number] PHY#: [id number] ID: [id number] JOB#: [id number] ACCT: [id number] cc:GREG CLINTON M.D. >
[2016-07-01] MEDS: METRONIDAZOLE 500 MG/NS RTU 100 ML IV SCH ×2 (01:37→06:29)
[2016-07-01] MEDS: MORPHINE SULFATE 10 MG/ML INJ IV PRN ×4 (01:59→22:25)
[2016-07-01] MEDS: HEPARIN SOD (PORCINE) 5,000 UNIT/ML 1 ML SYRINGE SUBCUT SCH ×3 (06:28→23:10)
[2016-07-01] MEDS: HYDRALAZINE HCL 10 MG TABLET PO SCH ×3 (06:29→23:09)
[2016-07-01] MEDS: DEXTROSE 10%-WATER 1,000 ML IV PRN (06:41)
[2016-07-01] MEDS: DEXAMETHASONE SOD PHOSPHATE INJ 4 MG/1 ML VIAL IV SCH ×2 (08:08→23:05)
[2016-07-01] MEDS: LANSOPRAZOLE 30 MG TAB.RAP.DR PO SCH (08:08)
[2016-07-01] MEDS: LEVETIRACETAM 500 MG/NACL-ISO 500 MG/100 ML RTUPB IV SCH ×2 (08:12→23:03)
[2016-07-01] MEDS: CILOSTAZOL 100 MG TABLET PO SCH ×2 (08:34→15:50)
[2016-07-01] MEDS: CARVEDILOL 12.5 MG TABLET PO SCH ×2 (12:00→23:07)
[2016-07-01] MEDS: LORAZEPAM INJ 2 MG/1 ML VIAL IV PRN ×2 (12:01→22:41)
[2016-07-01] MEDS: LISINOPRIL 10 MG TABLET PO SCH ×2 (12:01→23:09)
[2016-07-01] MEDS: MEGESTROL ACETATE SUSP 400 MG/10 ML UDCUP PO SCH (12:02)
[2016-07-01] MEDS: PIPERACILLIN SODIUM/TAZOBACTAM 2.25 GM in NORMAL SALINE 50 ML IV SCH (12:09)
[2016-07-01] MEDS: NYSTATIN TOPICAL POWDER 15 GM TP SCH ×2 (12:13→18:59)
[2016-07-01] MEDS: NYSTATIN/DEXAMETH/DIPHEN SUSP 120 ML PO SCH ×4 (12:14→23:01)
--- NOTE | 2016-07-01 19:02 | PDOC PROGRESS REPORT ---
Subjective Progress Note for:: 07/01/16 Subjective:: Patient was seen by the bedside she is extremely debilitated, she was seen by physical therapy she could not even transfer from bed to the chair yesterday she was seen by the surgeon and she underwent debridement of the sacral decubital ulcer. I would need to speak again to family to consider hospice as an option in this patient am not sure she can actually undergo any meaningful rehabilitation in the detention setting, she is too debilitated and frail, prognosis is extremely poor in this patient she remains a DNR status Physical Exam Vital Signs: Temp Pulse Resp BP Pulse Ox 98.1 F 80 16 126/115 H 90 L 07/01/16 16:00 07/01/16 16:00 07/01/16 16:00 07/01/16 16:00 07/01/16 16:00 Intake & Output 06/30/16 07/01/16 07/02/16 06:59 06:59 06:59 Intake Total 1517 2432 90 Output Total 550 1000 400 Balance 967 1432 -310 Weight 64.4 kg 56.9 kg General appearance: PRESENT: thin Eye exam: PRESENT: PERRLA Respiratory exam: PRESENT: rhonchi Cardiovascular exam: PRESENT: +S1, +S2 GI/Abdominal exam: PRESENT: soft Neurological exam: PRESENT: alert Results Laboratory Results: 06/30/16 06:35 06/30/16 06:35 05/29/16 05/30/16 05/31/16 23:45 05:55 05:15 Creatine Kinase 31 CK-MB (CK-2) 1.81 1.71 Troponin I 0.069 0.094 05/31/16 05:15 Creatine Kinase CK-MB (CK-2) 1.46 Troponin I 0.079 Impressions: Chest/Abdomen CTA 05/29/16 18:00 IMPRESSION: No evidence for pulmonary embolic disease. Extensive chronic appearing changes as noted above. Small right pleural effusion is again identified which appears slightly larger than on the previous study. The previously described rounded masslike density in the right lower lobe is again identified. There is a central somewhat low density area and the possibility of a necrotic neoplasm or developing lung abscess cannot be excluded. Large pericardial effusion is again identified. Other findings as noted above Modified Barium Swallow 06/11/16 00:00 IMPRESSION: FLASH LARYNGEAL PENETRATION FROM RESIDUALS, WITHOUT ASPIRATION, SEEN WITH PUREED CONSISTENCY.PLEASE SEE SPEECH PATHOLOGIST REPORT FOR OTHER FINDINGS AND RECOMMENDATIONS. Chest X-Ray 06/11/16 06:00 IMPRESSION: NO CHANGE IN APPEARANCE OF THE CHEST Head CT 06/23/16 01:35 IMPRESSION: Prominent relative low density areas in the periventricular white matter in both parietal regions as noted above. Differential possibilities are as noted above. MRI may be of value for further evaluation. Other findings as noted above. Head MRI 06/24/16 00:00 IMPRESSION: SEVERAL LOCULATED CYSTIC LESIONS IN THE CEREBRAL HEMISPHERES BILATERALLY WITH ASSOCIATED VASOGENIC EDEMA IN THE WHITE MATTER. THIS CONDITION APPEARS TO HAVE DEVELOPED FAIRLY RAPIDLY BASED ON A NORMAL HEAD CT ON 05/18/2016. FINDINGS MAY BE DUE TO INFECTIOUS ETIOLOGY, POSSIBLE ATYPICAL ORGANISM, WITH DEVELOPMENT OF BRAIN ABSCESSES. ACUTE INFLAMMATORY PROCESS COULD BE ANOTHER POSSIBILITY. MALIGNANCY SUCH METASTATIC DISEASE IS LESS LIKELY. Assessment & Plan - Diagnosis (1) Acute hypoxemic respiratory failure Is this a current diagnosis for this admission?: Yes (2) Lung cancer Qualifiers: Laterality: unspecified laterality Lung location: unspecified part of lung Qualified Code(s): C34.90 - Malignant neoplasm of unspecified part of unspecified bronchus or lung Is this a current diagnosis for this admission?: Yes (3) Lung abscess Qualifiers: Pulmonary abscess pneumonia presence: with pneumonia Laterality: right Lung location: unspecified part of lung Qualified Code(s): J85.1 - Abscess of lung with pneumonia Is this a current diagnosis for this admission?: No (4) End stage renal disease Is this a current diagnosis for this admission?: Yes (5) Cardiac arrest Is this a current diagnosis for this admission?: Yes (6) Cardiogenic shock Is this a current diagnosis for this admission?: Yes (7) Septic shock Is this a current diagnosis for this admission?: Yes (8) Hypoglycemia Is this a current diagnosis for this admission?: Yes (9) Anorexia Is this a current diagnosis for this admission?: Yes (10) Gangrene of toe Is this a current diagnosis for this admission?: Yes (11) Malignant cachexia Is this a current diagnosis for this admission?: Yes (12) New onset seizure Is this a current diagnosis for this admission?: Yes (13) Cerebral abscess Is this a current diagnosis for this admission?: Yes (14) Esophageal stricture Is this a current diagnosis for this admission?: Yes (15) Sacral decubitus ulcer, stage II Is this a current diagnosis for this admission?: Yes (16) Sacral decubitus ulcer, stage IV Is this a current diagnosis for this admission?: Yes
[2016-07-01] MEDS: IPRATROPIUM/ALBUTEROL 0.5-2.5 MG/3 ML AMPUL NEB PRN (23:05)
[2016-07-02] MEDS: METRONIDAZOLE 500 MG/NS RTU 100 ML IV SCH ×2 (00:20→00:24)
[2016-07-02] MEDS: IPRATROPIUM/ALBUTEROL 0.5-2.5 MG/3 ML AMPUL NEB PRN (06:46)
[2016-07-02] MEDS: MORPHINE SULFATE 10 MG/ML INJ IV PRN ×3 (06:51→21:33)
[2016-07-02] MEDS: LORAZEPAM INJ 2 MG/1 ML VIAL IV PRN ×3 (06:59→18:40)
[2016-07-02] MEDS: HEPARIN SOD (PORCINE) 5,000 UNIT/ML 1 ML SYRINGE SUBCUT SCH ×3 (07:00→22:20)
[2016-07-02 07:48] LABS: HEMATOCRIT 30.7 % (36.0-47.0); HEMOGLOBIN 9.4 g/dL (12.0-15.5); HGB HCT DIFFERENCE -2.5; MEAN CORPUSCULAR HGB CONC 30.5 g/dL (32.0-36.0); MEAN CORPUSCULAR VOLUME 92 fl (80-97); RED BLOOD COUNT 3.34 10^6/uL (3.72-5.28); WHITE BLOOD COUNT 26.8 10^3/uL (4.0-10.5)
[2016-07-02 08:03] LABS: ANION GAP 12 (5-19); BLOOD UREA NITROGEN 30 mg/dL (7-20); CALCIUM 7.7 mg/dL (8.4-10.2); CARBON DIOXIDE 22 mmol/L (22-30); CHLORIDE 100 mmol/L (98-107); GLUCOSE 190 mg/dL (75-110); POTASSIUM 3.4 mmol/L (3.6-5.0); SODIUM 133.8 mmol/L (137-145)
[2016-07-02] MEDS: HYDRALAZINE HCL 10 MG TABLET PO SCH ×3 (08:21→22:27)
[2016-07-02 08:27] LABS: BASOPHILS % (MANUAL) 0 % (0-2); EOSINOPHILS % (MANUAL) 0 % (0-6); LYMPHOCYTES % (MANUAL) 1 % (13-45); TOTAL CELLS COUNTED 100
[2016-07-02 08:31] LABS: ANISOCYTOSIS 2+; HYPOCHROMASIA 2+; POIKILOCYTOSIS 1+; POLYCHROMASIA 1+; TOXIC VACUOLATION PRESENT
[2016-07-02 08:32] LABS: OVALOCYTES 2+; TARGET CELLS 1+; TEAR DROP CELLS 1+
[2016-07-02 08:33] LABS: SCHISTOCYTES SLIGHT
[2016-07-02] MEDS: DEXAMETHASONE SOD PHOSPHATE INJ 4 MG/1 ML VIAL IV SCH ×2 (08:38→20:56)
[2016-07-02] MEDS: LEVETIRACETAM 500 MG/NACL-ISO 500 MG/100 ML RTUPB IV SCH ×2 (08:38→20:53)
[2016-07-02] MEDS: CILOSTAZOL 100 MG TABLET PO SCH ×2 (08:38→18:39)
[2016-07-02] MEDS: LANSOPRAZOLE 30 MG TAB.RAP.DR PO SCH (08:38)
[2016-07-02] MEDS ORDERED: EPOETIN ALFA 25,000 UNIT in SYRINGE, DISPOSABLE, 1 EACH IV PRN (09:45)
[2016-07-02] MEDS: MEGESTROL ACETATE SUSP 400 MG/10 ML UDCUP PO SCH (11:11)
[2016-07-02] MEDS: CARVEDILOL 12.5 MG TABLET PO SCH ×2 (11:11→22:27)
[2016-07-02] MEDS: LISINOPRIL 10 MG TABLET PO SCH ×2 (11:11→22:27)
[2016-07-02] MEDS: NYSTATIN TOPICAL POWDER 15 GM TP SCH ×2 (11:11→19:55)
[2016-07-02] MEDS: NYSTATIN/DEXAMETH/DIPHEN SUSP 120 ML PO SCH ×4 (11:11→22:23)
--- NOTE | 2016-07-02 13:24 | PDOC PROGRESS REPORT ---
Subjective Progress Note for:: 07/02/16 Subjective:: I saw the patient during dialysis this morning at around 8:35 AM. She denies any complaints. She seems to be tolerating her tube feeding. Physical Exam Vital Signs: Temp Pulse Resp BP Pulse Ox 97.6 F 69 16 138/105 H 85 L 07/02/16 07:56 07/02/16 07:56 07/02/16 07:56 07/02/16 07:56 07/02/16 07:56 Intake & Output 07/01/16 07/02/16 07/03/16 06:59 06:59 06:59 Intake Total 2432 820 Output Total 1000 400 Balance 1432 420 Weight 56.9 kg 57 kg Vitals during dialysis this morning: Blood pressure 158/97, heart rate 66, blood flow rate 300 mL per minute, dialysate flow rate 600 mL per minute. Exam: General appearance: PRESENT: no acute distress, cooperative, well-developed, well-nourished Head exam: PRESENT: atraumatic, normocephalic Eye exam: PRESENT: conjunctiva pale, PERRLA. ABSENT: scleral icterus Neck exam: ABSENT: JVD Respiratory exam: PRESENT: Diminished breath sounds. ABSENT: crackles, rales, rhonchi, unlabored, wheezes Cardiovascular exam: PRESENT: Irregular rate rhythm -+S1, +S2. ABSENT: diastolic murmur, systolic murmur GI/Abdominal exam: PRESENT: normal bowel sounds, soft. ABSENT: guarding, mass, tenderness Extremities exam: Grade 1 bilateral lower extremity edema Neurological exam: PRESENT: alert, awake, oriented to person, place and time. Skin exam: PRESENT: dry, warm, Cardiovascular exam: PRESENT: +S1, +S2, systolic murmur GI/Abdominal exam: PRESENT: normal bowel sounds, soft. ABSENT: distended, firm , tenderness Results Laboratory Results: 07/02/16 06:45 07/02/16 06:45 07/02/16 07/02/16 06:45 06:45 WBC 26.8 H RBC 3.34 L Hgb 9.4 L Hct 30.7 L MCV 92 MCH 28.0 MCHC 30.5 L RDW 19.0 H Plt Count 238 Seg Neutrophils % Not Reportable Lymphocytes % Not Reportable Monocytes % Not Reportable Eosinophils % Not Reportable Basophils % Not Reportable Absolute Neutrophils Not Reportable Absolute Lymphocytes Not Reportable Absolute Monocytes Not Reportable Absolute Eosinophils Not Reportable Absolute Basophils Not Reportable Sodium 133.8 L Potassium 3.4 L Chloride 100 Carbon Dioxide 22 Anion Gap 12 BUN 30 H Creatinine 2.70 H Est GFR ( Amer) 23 L Est GFR (Non-Af Amer) 19 L Glucose 190 H Calcium 7.7 L 05/29/16 05/30/16 05/31/16 23:45 05:55 05:15 Creatine Kinase 31 CK-MB (CK-2) 1.81 1.71 Troponin I 0.069 0.094 05/31/16 05:15 Creatine Kinase CK-MB (CK-2) 1.46 Troponin I 0.079 Impressions: Chest/Abdomen CTA 05/29/16 18:00 IMPRESSION: No evidence for pulmonary embolic disease. Extensive chronic appearing changes as noted above. Small right pleural effusion is again identified which appears slightly larger than on the previous study. The previously described rounded masslike density in the right lower lobe is again identified. There is a central somewhat low density area and the possibility of a necrotic neoplasm or developing lung abscess cannot be excluded. Large pericardial effusion is again identified. Other findings as noted above Modified Barium Swallow 06/11/16 00:00 IMPRESSION: FLASH LARYNGEAL PENETRATION FROM RESIDUALS, WITHOUT ASPIRATION, SEEN WITH PUREED CONSISTENCY.PLEASE SEE SPEECH PATHOLOGIST REPORT FOR OTHER FINDINGS AND RECOMMENDATIONS. Chest X-Ray 06/11/16 06:00 IMPRESSION: NO CHANGE IN APPEARANCE OF THE CHEST Head CT 06/23/16 01:35 IMPRESSION: Prominent relative low density areas in the periventricular white matter in both parietal regions as noted above. Differential possibilities are as noted above. MRI may be of value for further evaluation. Other findings as noted above. Head MRI 06/24/16 00:00 IMPRESSION: SEVERAL LOCULATED CYSTIC LESIONS IN THE CEREBRAL HEMISPHERES BILATERALLY WITH ASSOCIATED VASOGENIC EDEMA IN THE WHITE MATTER. THIS CONDITION APPEARS TO HAVE DEVELOPED FAIRLY RAPIDLY BASED ON A NORMAL HEAD CT ON 05/18/2016. FINDINGS MAY BE DUE TO INFECTIOUS ETIOLOGY, POSSIBLE ATYPICAL ORGANISM, WITH DEVELOPMENT OF BRAIN ABSCESSES. ACUTE INFLAMMATORY PROCESS COULD BE ANOTHER POSSIBILITY. MALIGNANCY SUCH METASTATIC DISEASE IS LESS LIKELY. Assessment & Plan - Diagnosis (1) End stage renal disease Is this a current diagnosis for this admission?: YesPlan: We did dialysis today for 2.5 hours, using the patient's access, with 3 potassium bath, blood flow rate of 350 mL per minute, dialysate flow rate of 600 mL per minute, ultrafiltration at least 2 L or more if tolerated, no heparin and Procrit with 25,000 units during dialysis intravenously. Patient tolerated dialysis well. Continue hemodialysis support until here in the hospital. (2) Anemia Is this a current diagnosis for this admission?: YesPlan: We will give Procrit as needed. (3) Hypoglycemia Is this a current diagnosis for this admission?: YesPlan: Improved. Now on tube feeding. (4) Malignant cachexia Is this a current diagnosis for this admission?: Yes (5) Cerebral abscess Is this a current diagnosis for this admission?: Yes (6) Lung abscess Qualifiers: Pulmonary abscess pneumonia presence: with pneumonia Laterality: right Lung location: unspecified part of lung Qualified Code(s): J85.1 - Abscess of lung with pneumonia Is this a current diagnosis for this admission?: No (7) Lung cancer Qualifiers: Laterality: unspecified laterality Lung location: unspecified part of lung Qualified Code(s): C34.90 - Malignant neoplasm of unspecified part of unspecified bronchus or lung Is this a current diagnosis for this admission?: Yes (8) HTN (hypertension) Qualifiers: Hypertension type: essential hypertension Qualified Code(s): I10 - Essential (primary) hypertension Is this a current diagnosis for this admission?: Yes (9) Scleroderma Is this a current diagnosis for this admission?: Yes (10) Failure to thrive Is this a current diagnosis for this admission?: YesPlan: Currently started on PEG tube feeding with Nepro. - Time Time with patient: 15-25 minutes
[2016-07-02] MEDS: VANCOMYCIN HCL 500 MG in DEXTROSE 5%-WATER 100 ML IV SCH (18:40)
--- NOTE | 2016-07-02 19:01 | PDOC PROGRESS REPORT ---
Subjective Progress Note for:: 07/02/16 Subjective:: Patient's condition is very poor I discussed condition with patient spouse today , she will be down graded to the floor Physical Exam Vital Signs: Temp Pulse Resp BP Pulse Ox 99.1 F 72 22 H 126/96 H 83 L 07/02/16 16:13 07/02/16 16:13 07/02/16 16:13 07/02/16 16:13 07/02/16 16:13 Intake & Output 07/01/16 07/02/16 07/03/16 06:59 06:59 06:59 Intake Total 2432 820 25 Output Total 5570 745 3613 Balance 1432 420 -2475 Weight 56.9 kg 57 kg General appearance: PRESENT: thin Respiratory exam: PRESENT: decreased breath sounds Cardiovascular exam: PRESENT: +S1, +S2 Neurological exam: PRESENT: alert Results Laboratory Results: 07/02/16 06:45 07/02/16 06:45 07/02/16 07/02/16 06:45 06:45 WBC 26.8 H RBC 3.34 L Hgb 9.4 L Hct 30.7 L MCV 92 MCH 28.0 MCHC 30.5 L RDW 19.0 H Plt Count 238 Seg Neutrophils % Not Reportable Lymphocytes % Not Reportable Monocytes % Not Reportable Eosinophils % Not Reportable Basophils % Not Reportable Absolute Neutrophils Not Reportable Absolute Lymphocytes Not Reportable Absolute Monocytes Not Reportable Absolute Eosinophils Not Reportable Absolute Basophils Not Reportable Sodium 133.8 L Potassium 3.4 L Chloride 100 Carbon Dioxide 22 Anion Gap 12 BUN 30 H Creatinine 2.70 H Est GFR ( Amer) 23 L Est GFR (Non-Af Amer) 19 L Glucose 190 H Calcium 7.7 L 05/29/16 05/30/16 05/31/16 23:45 05:55 05:15 Creatine Kinase 31 CK-MB (CK-2) 1.81 1.71 Troponin I 0.069 0.094 05/31/16 05:15 Creatine Kinase CK-MB (CK-2) 1.46 Troponin I 0.079 Impressions: Chest/Abdomen CTA 05/29/16 18:00 IMPRESSION: No evidence for pulmonary embolic disease. Extensive chronic appearing changes as noted above. Small right pleural effusion is again identified which appears slightly larger than on the previous study. The previously described rounded masslike density in the right lower lobe is again identified. There is a central somewhat low density area and the possibility of a necrotic neoplasm or developing lung abscess cannot be excluded. Large pericardial effusion is again identified. Other findings as noted above Modified Barium Swallow 06/11/16 00:00 IMPRESSION: FLASH LARYNGEAL PENETRATION FROM RESIDUALS, WITHOUT ASPIRATION, SEEN WITH PUREED CONSISTENCY.PLEASE SEE SPEECH PATHOLOGIST REPORT FOR OTHER FINDINGS AND RECOMMENDATIONS. Chest X-Ray 06/11/16 06:00 IMPRESSION: NO CHANGE IN APPEARANCE OF THE CHEST Head CT 06/23/16 01:35 IMPRESSION: Prominent relative low density areas in the periventricular white matter in both parietal regions as noted above. Differential possibilities are as noted above. MRI may be of value for further evaluation. Other findings as noted above. Head MRI 06/24/16 00:00 IMPRESSION: SEVERAL LOCULATED CYSTIC LESIONS IN THE CEREBRAL HEMISPHERES BILATERALLY WITH ASSOCIATED VASOGENIC EDEMA IN THE WHITE MATTER. THIS CONDITION APPEARS TO HAVE DEVELOPED FAIRLY RAPIDLY BASED ON A NORMAL HEAD CT ON 05/18/2016. FINDINGS MAY BE DUE TO INFECTIOUS ETIOLOGY, POSSIBLE ATYPICAL ORGANISM, WITH DEVELOPMENT OF BRAIN ABSCESSES. ACUTE INFLAMMATORY PROCESS COULD BE ANOTHER POSSIBILITY. MALIGNANCY SUCH METASTATIC DISEASE IS LESS LIKELY. Assessment & Plan - Diagnosis (1) Acute hypoxemic respiratory failure Is this a current diagnosis for this admission?: Yes (2) Lung cancer Qualifiers: Laterality: unspecified laterality Lung location: unspecified part of lung Qualified Code(s): C34.90 - Malignant neoplasm of unspecified part of unspecified bronchus or lung Is this a current diagnosis for this admission?: Yes (3) Lung abscess Qualifiers: Pulmonary abscess pneumonia presence: with pneumonia Laterality: right Lung location: unspecified part of lung Qualified Code(s): J85.1 - Abscess of lung with pneumonia Is this a current diagnosis for this admission?: No (4) End stage renal disease Is this a current diagnosis for this admission?: Yes (5) Cardiac arrest Is this a current diagnosis for this admission?: Yes (6) Cardiogenic shock Is this a current diagnosis for this admission?: Yes (7) Septic shock Is this a current diagnosis for this admission?: Yes (8) Hypoglycemia Is this a current diagnosis for this admission?: Yes (9) Anorexia Is this a current diagnosis for this admission?: Yes (10) Gangrene of toe Is this a current diagnosis for this admission?: Yes (11) Malignant cachexia Is this a current diagnosis for this admission?: Yes (12) New onset seizure Is this a current diagnosis for this admission?: Yes (13) Cerebral abscess Is this a current diagnosis for this admission?: Yes (14) Esophageal stricture Is this a current diagnosis for this admission?: Yes (15) Sacral decubitus ulcer, stage IV Is this a current diagnosis for this admission?: Yes
[2016-07-02] MEDS: DEXTROSE 50%-WATER 25 GM/50 ML DISP.SYRIN IV PRN (23:27)
[2016-07-02] MEDS: DEXTROSE 10%-WATER 1,000 ML IV PRN (23:27)
[2016-07-03] MEDS: METOPROLOL TARTRATE PF/INJ 5 MG/5 ML SDV IV PRN (04:56)
[2016-07-03] MEDS: MORPHINE SULFATE 10 MG/ML INJ IV PRN ×3 (06:19→18:41)
[2016-07-03] MEDS: LORAZEPAM INJ 2 MG/1 ML VIAL IV PRN ×2 (06:19→18:35)
[2016-07-03] MEDS: HEPARIN SOD (PORCINE) 5,000 UNIT/ML 1 ML SYRINGE SUBCUT SCH ×3 (07:08→22:01)
[2016-07-03] MEDS: HYDRALAZINE HCL 10 MG TABLET PO SCH ×3 (07:09→22:00)
[2016-07-03] MEDS: LEVETIRACETAM 500 MG/NACL-ISO 500 MG/100 ML RTUPB IV SCH ×2 (08:17→20:53)
[2016-07-03] MEDS: LANSOPRAZOLE 30 MG TAB.RAP.DR PO SCH (08:17)
[2016-07-03] MEDS: CILOSTAZOL 100 MG TABLET PO SCH ×2 (08:17→17:31)
--- NOTE | 2016-07-03 09:14 | PDOC PROGRESS REPORT ---
Subjective Progress Note for:: 07/03/16 Subjective:: Is currently doing same no change overnight. Patient still have extremely poor prognosis and the patient's currently DNR/DNI Physical Exam Vital Signs: Temp Pulse Resp BP Pulse Ox 97.5 F 44 L 16 151/84 H 89 L 07/03/16 07:57 07/03/16 07:57 07/03/16 07:57 07/03/16 07:57 07/03/16 07:57 Intake & Output 07/02/16 07/03/16 07/04/16 06:59 06:59 06:59 Intake Total 820 655 Output Total 400 2500 Balance 420 -1845 Weight 57 kg 56.7 kg General appearance: PRESENT: no acute distress, thin Eye exam: PRESENT: PERRLA Respiratory exam: PRESENT: decreased breath sounds Cardiovascular exam: PRESENT: +S1, +S2 GI/Abdominal exam: PRESENT: normal bowel sounds, soft Extremities exam: ABSENT: pedal edema Neurological exam: PRESENT: alert, altered Results Laboratory Results: 07/02/16 06:45 07/02/16 06:45 05/29/16 05/30/16 05/31/16 23:45 05:55 05:15 Creatine Kinase 31 CK-MB (CK-2) 1.81 1.71 Troponin I 0.069 0.094 05/31/16 05:15 Creatine Kinase CK-MB (CK-2) 1.46 Troponin I 0.079 Impressions: Chest/Abdomen CTA 05/29/16 18:00 IMPRESSION: No evidence for pulmonary embolic disease. Extensive chronic appearing changes as noted above. Small right pleural effusion is again identified which appears slightly larger than on the previous study. The previously described rounded masslike density in the right lower lobe is again identified. There is a central somewhat low density area and the possibility of a necrotic neoplasm or developing lung abscess cannot be excluded. Large pericardial effusion is again identified. Other findings as noted above Modified Barium Swallow 06/11/16 00:00 IMPRESSION: FLASH LARYNGEAL PENETRATION FROM RESIDUALS, WITHOUT ASPIRATION, SEEN WITH PUREED CONSISTENCY.PLEASE SEE SPEECH PATHOLOGIST REPORT FOR OTHER FINDINGS AND RECOMMENDATIONS. Chest X-Ray 06/11/16 06:00 IMPRESSION: NO CHANGE IN APPEARANCE OF THE CHEST Head CT 06/23/16 01:35 IMPRESSION: Prominent relative low density areas in the periventricular white matter in both parietal regions as noted above. Differential possibilities are as noted above. MRI may be of value for further evaluation. Other findings as noted above. Head MRI 06/24/16 00:00 IMPRESSION: SEVERAL LOCULATED CYSTIC LESIONS IN THE CEREBRAL HEMISPHERES BILATERALLY WITH ASSOCIATED VASOGENIC EDEMA IN THE WHITE MATTER. THIS CONDITION APPEARS TO HAVE DEVELOPED FAIRLY RAPIDLY BASED ON A NORMAL HEAD CT ON 05/18/2016. FINDINGS MAY BE DUE TO INFECTIOUS ETIOLOGY, POSSIBLE ATYPICAL ORGANISM, WITH DEVELOPMENT OF BRAIN ABSCESSES. ACUTE INFLAMMATORY PROCESS COULD BE ANOTHER POSSIBILITY. MALIGNANCY SUCH METASTATIC DISEASE IS LESS LIKELY. Assessment & Plan - Diagnosis (1) Acute hypoxemic respiratory failure Is this a current diagnosis for this admission?: YesPlan: Currently stable (2) End stage renal disease Is this a current diagnosis for this admission?: YesPlan: Patient is currently on hemodialysis per nephrology (3) Lung abscess Qualifiers: Pulmonary abscess pneumonia presence: with pneumonia Laterality: right Lung location: unspecified part of lung Qualified Code(s): J85.1 - Abscess of lung with pneumonia Is this a current diagnosis for this admission?: NoPlan: Continuous IV antibiotic (4) Lung cancer Qualifiers: Laterality: unspecified laterality Lung location: unspecified part of lung Qualified Code(s): C34.90 - Malignant neoplasm of unspecified part of unspecified bronchus or lung Is this a current diagnosis for this admission?: YesPlan: Poor prognosis (5) Pulmonary fibrosis Is this a current diagnosis for this admission?: Yes (6) Scleroderma Is this a current diagnosis for this admission?: YesPlan: Symptoms current medication - Time Time Spent with patient: 15-24 minutes Medications reviewed and adjusted accordingly: Yes Anticipated discharge: Other Within: Other - Inpatient Certification Medical Necessity: Significant Comorbidiites Make Outpatient Treatment Too Risky Post Hospital Care: D/C [employer] Documentation - Plan Summary Plan Summary: Patient's have poor prognosis discussed with the family in the room
[2016-07-03] MEDS: CARVEDILOL 12.5 MG TABLET PO SCH ×2 (10:16→21:59)
[2016-07-03] MEDS: NYSTATIN TOPICAL POWDER 15 GM TP SCH ×2 (10:16→17:30)
[2016-07-03] MEDS: MEGESTROL ACETATE SUSP 400 MG/10 ML UDCUP PO SCH (10:16)
[2016-07-03] MEDS: LISINOPRIL 10 MG TABLET PO SCH ×2 (10:16→21:59)
[2016-07-03] MEDS: NYSTATIN/DEXAMETH/DIPHEN SUSP 120 ML PO SCH ×4 (10:16→22:04)
--- NOTE | 2016-07-03 14:55 | PDOC PROGRESS REPORT ---
Subjective Progress Note for:: 07/01/16 Subjective:: interactive, alert Physical Exam Vital Signs: Temp Pulse Resp BP Pulse Ox 98.7 F 90 18 157/75 H 95 07/03/16 12:00 07/03/16 12:00 07/03/16 12:00 07/03/16 12:00 07/03/16 12:00 Intake & Output 07/02/16 07/03/16 07/04/16 06:59 06:59 06:59 Intake Total 820 655 Output Total 400 2500 Balance 420 -1845 Weight 57 kg 56.7 kg General appearance: PRESENT: no acute distress, disheveled, other - cachectic Head exam: PRESENT: atraumatic, normocephalic Eye exam: PRESENT: conjunctiva pale Mouth exam: PRESENT: dry mucosa Neck exam: ABSENT: carotid bruit, JVD, lymphadenopathy, thyromegaly Respiratory exam: PRESENT: crackles, decreased breath sounds, prolonged expiratory phas, rhonchi, symmetrical, unlabored Cardiovascular exam: PRESENT: RRR, +S1, +S2 Pulses: PRESENT: normal radial pulses GI/Abdominal exam: PRESENT: normal bowel sounds, soft. ABSENT: distended, guarding, mass, organolmegaly, rebound, tenderness Rectal exam: PRESENT: deferred Gentrourinary exam: PRESENT: indwelling catheter Musculoskeletal exam: PRESENT: normal inspection Neurological exam: PRESENT: awake Skin exam: PRESENT: dry, warm Results Laboratory Results: 07/02/16 06:45 07/02/16 06:45 05/29/16 05/30/16 05/31/16 23:45 05:55 05:15 Creatine Kinase 31 CK-MB (CK-2) 1.81 1.71 Troponin I 0.069 0.094 05/31/16 05:15 Creatine Kinase CK-MB (CK-2) 1.46 Troponin I 0.079 Impressions: Chest/Abdomen CTA 05/29/16 18:00 IMPRESSION: No evidence for pulmonary embolic disease. Extensive chronic appearing changes as noted above. Small right pleural effusion is again identified which appears slightly larger than on the previous study. The previously described rounded masslike density in the right lower lobe is again identified. There is a central somewhat low density area and the possibility of a necrotic neoplasm or developing lung abscess cannot be excluded. Large pericardial effusion is again identified. Other findings as noted above Modified Barium Swallow 06/11/16 00:00 IMPRESSION: FLASH LARYNGEAL PENETRATION FROM RESIDUALS, WITHOUT ASPIRATION, SEEN WITH PUREED CONSISTENCY.PLEASE SEE SPEECH PATHOLOGIST REPORT FOR OTHER FINDINGS AND RECOMMENDATIONS. Chest X-Ray 06/11/16 06:00 IMPRESSION: NO CHANGE IN APPEARANCE OF THE CHEST Head CT 06/23/16 01:35 IMPRESSION: Prominent relative low density areas in the periventricular white matter in both parietal regions as noted above. Differential possibilities are as noted above. MRI may be of value for further evaluation. Other findings as noted above. Head MRI 06/24/16 00:00 IMPRESSION: SEVERAL LOCULATED CYSTIC LESIONS IN THE CEREBRAL HEMISPHERES BILATERALLY WITH ASSOCIATED VASOGENIC EDEMA IN THE WHITE MATTER. THIS CONDITION APPEARS TO HAVE DEVELOPED FAIRLY RAPIDLY BASED ON A NORMAL HEAD CT ON 05/18/2016. FINDINGS MAY BE DUE TO INFECTIOUS ETIOLOGY, POSSIBLE ATYPICAL ORGANISM, WITH DEVELOPMENT OF BRAIN ABSCESSES. ACUTE INFLAMMATORY PROCESS COULD BE ANOTHER POSSIBILITY. MALIGNANCY SUCH METASTATIC DISEASE IS LESS LIKELY. Assessment & Plan - Diagnosis (1) Acute hypoxemic respiratory failure Is this a current diagnosis for this admission?: Yes (2) End stage renal disease Is this a current diagnosis for this admission?: Yes (3) Lung abscess Qualifiers: Pulmonary abscess pneumonia presence: with pneumonia Laterality: right Lung location: unspecified part of lung Qualified Code(s): J85.1 - Abscess of lung with pneumonia Is this a current diagnosis for this admission?: No (4) Lung cancer Qualifiers: Laterality: unspecified laterality Lung location: unspecified part of lung Qualified Code(s): C34.90 - Malignant neoplasm of unspecified part of unspecified bronchus or lung Is this a current diagnosis for this admission?: Yes (5) Scleroderma Is this a current diagnosis for this admission?: Yes
[2016-07-03] MEDS ORDERED: ONDANSETRON HCL INJ/PF 4 MG/2 ML SDV IV PRN (17:04)
[2016-07-03] MEDS ORDERED: NORMAL SALINE IV SCH (18:00)
[2016-07-03] MEDS ORDERED: FLUCONAZOLE IV SCH (18:00)
[2016-07-04] MEDS: MORPHINE SULFATE 10 MG/ML INJ IV PRN ×3 (00:26→18:30)
[2016-07-04] MEDS: LORAZEPAM INJ 2 MG/1 ML VIAL IV PRN ×3 (00:26→18:30)
[2016-07-04] MEDS: HEPARIN SOD (PORCINE) 5,000 UNIT/ML 1 ML SYRINGE SUBCUT SCH ×3 (06:51→22:58)
[2016-07-04] MEDS: HYDRALAZINE HCL 10 MG TABLET PO SCH ×3 (06:53→22:59)
[2016-07-04] MEDS: LEVETIRACETAM 500 MG/NACL-ISO 500 MG/100 ML RTUPB IV SCH ×2 (08:01→19:56)
--- NOTE | 2016-07-04 09:01 | PDOC PROGRESS REPORT ---
Subjective Progress Note for:: 07/04/16 Subjective:: Patient is currently doing same no change overnight Issue with the tube feeding was hold yesterday that he started with the lower dose Patient heart rate is still up and down Patient is alert awake Still very poor prognosis Schedule for the dialysis tomorrow Physical Exam Vital Signs: Temp Pulse Resp BP Pulse Ox 97.4 F 70 16 152/96 H 99 07/04/16 07:19 07/04/16 07:19 07/04/16 08:00 07/04/16 07:19 07/04/16 03:00 Intake & Output 07/03/16 07/04/16 07/05/16 06:59 06:59 06:59 Intake Total 655 310 Output Total 2500 550 Balance -1845 -240 Weight 56.7 kg 58.5 kg General appearance: PRESENT: no acute distress Eye exam: PRESENT: PERRLA Mouth exam: PRESENT: neck supple Respiratory exam: PRESENT: clear to auscultation frankie Cardiovascular exam: PRESENT: +S1, +S2 GI/Abdominal exam: PRESENT: normal bowel sounds, soft Extremities exam: ABSENT: pedal edema Neurological exam: PRESENT: alert, awake Results Laboratory Results: 07/02/16 06:45 07/02/16 06:45 05/29/16 05/30/16 05/31/16 23:45 05:55 05:15 Creatine Kinase 31 CK-MB (CK-2) 1.81 1.71 Troponin I 0.069 0.094 05/31/16 05:15 Creatine Kinase CK-MB (CK-2) 1.46 Troponin I 0.079 Impressions: Chest/Abdomen CTA 05/29/16 18:00 IMPRESSION: No evidence for pulmonary embolic disease. Extensive chronic appearing changes as noted above. Small right pleural effusion is again identified which appears slightly larger than on the previous study. The previously described rounded masslike density in the right lower lobe is again identified. There is a central somewhat low density area and the possibility of a necrotic neoplasm or developing lung abscess cannot be excluded. Large pericardial effusion is again identified. Other findings as noted above Modified Barium Swallow 06/11/16 00:00 IMPRESSION: FLASH LARYNGEAL PENETRATION FROM RESIDUALS, WITHOUT ASPIRATION, SEEN WITH PUREED CONSISTENCY.PLEASE SEE SPEECH PATHOLOGIST REPORT FOR OTHER FINDINGS AND RECOMMENDATIONS. Chest X-Ray 06/11/16 06:00 IMPRESSION: NO CHANGE IN APPEARANCE OF THE CHEST Head CT 06/23/16 01:35 IMPRESSION: Prominent relative low density areas in the periventricular white matter in both parietal regions as noted above. Differential possibilities are as noted above. MRI may be of value for further evaluation. Other findings as noted above. Head MRI 06/24/16 00:00 IMPRESSION: SEVERAL LOCULATED CYSTIC LESIONS IN THE CEREBRAL HEMISPHERES BILATERALLY WITH ASSOCIATED VASOGENIC EDEMA IN THE WHITE MATTER. THIS CONDITION APPEARS TO HAVE DEVELOPED FAIRLY RAPIDLY BASED ON A NORMAL HEAD CT ON 05/18/2016. FINDINGS MAY BE DUE TO INFECTIOUS ETIOLOGY, POSSIBLE ATYPICAL ORGANISM, WITH DEVELOPMENT OF BRAIN ABSCESSES. ACUTE INFLAMMATORY PROCESS COULD BE ANOTHER POSSIBILITY. MALIGNANCY SUCH METASTATIC DISEASE IS LESS LIKELY. Assessment & Plan - Diagnosis (1) Acute hypoxemic respiratory failure Is this a current diagnosis for this admission?: YesPlan: Currently stable (2) End stage renal disease Is this a current diagnosis for this admission?: YesPlan: Scheduled for the hemodialysis tomorrow per nephrology (3) Lung abscess Qualifiers: Pulmonary abscess pneumonia presence: with pneumonia Laterality: right Lung location: unspecified part of lung Qualified Code(s): J85.1 - Abscess of lung with pneumonia Is this a current diagnosis for this admission?: NoPlan: Continuous IV antibiotic (4) Lung cancer Qualifiers: Laterality: unspecified laterality Lung location: unspecified part of lung Qualified Code(s): C34.90 - Malignant neoplasm of unspecified part of unspecified bronchus or lung Is this a current diagnosis for this admission?: YesPlan: Poor prognosis (5) Pulmonary fibrosis Is this a current diagnosis for this admission?: Yes (6) Scleroderma Is this a current diagnosis for this admission?: YesPlan: Symptoms current medication - Time Time Spent with patient: 15-24 minutes Medications reviewed and adjusted accordingly: Yes Anticipated discharge: Other Within: Other - Inpatient Certification Medical Necessity: Need Close Monitoring Due to Risk of Patient Decompensation Post Hospital Care: D/C Emergency Doctor Documentation - Plan Summary Plan Summary: Increase the core is 25 mg p.o. twice a day patient was put on the Diflucan IV and continues to monitor the patient's
[2016-07-04] MEDS: LISINOPRIL 10 MG TABLET PO SCH ×2 (11:44→23:03)
[2016-07-04] MEDS: MEGESTROL ACETATE SUSP 400 MG/10 ML UDCUP PO SCH (11:45)
[2016-07-04] MEDS: LANSOPRAZOLE 30 MG TAB.RAP.DR PO SCH (11:45)
[2016-07-04] MEDS: CARVEDILOL 12.5 MG TABLET PO SCH ×2 (11:45→23:01)
[2016-07-04] MEDS: NYSTATIN TOPICAL POWDER 15 GM TP SCH ×2 (11:46→18:30)
[2016-07-04] MEDS: NYSTATIN/DEXAMETH/DIPHEN SUSP 120 ML PO SCH ×4 (11:46→23:21)
[2016-07-04] MEDS: CILOSTAZOL 100 MG TABLET PO SCH ×2 (11:46→18:30)
[2016-07-04] MEDS ORDERED: HEPARIN SOD (PORCINE) 1,000 UNIT/ML 10 ML VIAL MC PRN (16:06)
[2016-07-05] MEDS: MORPHINE SULFATE 10 MG/ML INJ IV PRN ×5 (02:07→20:20)
[2016-07-05] MEDS: IPRATROPIUM/ALBUTEROL 0.5-2.5 MG/3 ML AMPUL NEB PRN (02:20)
[2016-07-05] MEDS: LORAZEPAM INJ 2 MG/1 ML VIAL IV PRN ×2 (05:00→13:52)
[2016-07-05] MEDS ORDERED: EPOETIN ALFA 10,000 UNIT in SYRINGE, DISPOSABLE, 1 EACH IV PRN (05:00)
[2016-07-05] MEDS: HEPARIN SOD (PORCINE) 5,000 UNIT/ML 1 ML SYRINGE SUBCUT SCH ×2 (06:26→16:13)
[2016-07-05] MEDS: HYDRALAZINE HCL 10 MG TABLET PO SCH ×2 (06:27→16:13)
[2016-07-05 07:24] LABS: HEMATOCRIT 33.6 % (36.0-47.0); HEMOGLOBIN 10.2 g/dL (12.0-15.5); MEAN CORPUSCULAR HEMOGLOBIN 28.6 pg (27.0-33.4); MEAN CORPUSCULAR HGB CONC 30.4 g/dL (32.0-36.0); MEAN CORPUSCULAR VOLUME 94 fl (80-97); RED BLOOD COUNT 3.57 10^6/uL (3.72-5.28); RED CELL DISTRIBUTION WIDTH 21.9 % (11.5-14.0); WHITE BLOOD COUNT 22.7 10^3/uL (4.0-10.5)
[2016-07-05 07:46] LABS: ANION GAP 12 (5-19); BLOOD UREA NITROGEN 40 mg/dL (7-20); CALCIUM 7.6 mg/dL (8.4-10.2); CARBON DIOXIDE 24 mmol/L (22-30); CHLORIDE 99 mmol/L (98-107); GLUCOSE 86 mg/dL (75-110); POTASSIUM 3.1 mmol/L (3.6-5.0); SODIUM 135.4 mmol/L (137-145)
[2016-07-05 08:11] LABS: BASOPHILS % (MANUAL) 0 % (0-2); EOSINOPHILS % (MANUAL) 4 % (0-6); LYMPHOCYTES % (MANUAL) 3 % (13-45); TOTAL CELLS COUNTED 100
[2016-07-05 08:14] LABS: ANISOCYTOSIS 3+; OVALOCYTES 1+; POIKILOCYTOSIS 1+; POLYCHROMASIA 1+
[2016-07-05 08:15] LABS: TEAR DROP CELLS 1+
[2016-07-05] MEDS: LISINOPRIL 10 MG TABLET PO SCH (09:46)
[2016-07-05] MEDS: LEVETIRACETAM 500 MG/NACL-ISO 500 MG/100 ML RTUPB IV SCH ×2 (09:46→22:24)
[2016-07-05] MEDS: NYSTATIN/DEXAMETH/DIPHEN SUSP 120 ML PO SCH ×3 (09:46→18:53)
[2016-07-05] MEDS: NYSTATIN TOPICAL POWDER 15 GM TP SCH ×2 (09:46→18:55)
[2016-07-05] MEDS: CARVEDILOL 12.5 MG TABLET PO SCH (09:46)
[2016-07-05] MEDS: MEGESTROL ACETATE SUSP 400 MG/10 ML UDCUP PO SCH (09:46)
[2016-07-05] MEDS: CILOSTAZOL 100 MG TABLET PO SCH ×2 (09:46→20:06)
[2016-07-05] MEDS: LANSOPRAZOLE 30 MG TAB.RAP.DR PO SCH (09:46)
[2016-07-05] MEDS ORDERED: DEXTROSE 50%-WATER 25 GM/50 ML DISP.SYRIN IV ONE ×3 (10:20→22:30)
[2016-07-05] MEDS: FLUCONAZOLE 100 MG TABLET PO SCH (18:52)
[2016-07-05] MEDS: VANCOMYCIN HCL 500 MG in DEXTROSE 5%-WATER 100 ML IV SCH (18:52)
--- NOTE | 2016-07-05 19:01 | PDOC PROGRESS REPORT ---
Subjective Progress Note for:: 07/05/16 Subjective:: Patient seen by the bedside, she had hemodialysis today, condition is extremely poor, she said the present morphine dose is not effective to control pain, the morphine dose to be increased from 1 mg to 3 mg every 3 hours as needed Physical Exam Vital Signs: Temp Pulse Resp BP Pulse Ox 98.0 F 32 L 22 H 102/78 85 L 07/05/16 15:59 07/05/16 15:59 07/05/16 15:59 07/05/16 15:59 07/05/16 15:59 Intake & Output 07/04/16 07/05/16 07/06/16 06:59 06:59 06:59 Intake Total 310 1023 950 Output Total 550 750 900 Balance -240 273 50 Weight 58.5 kg 57.6 kg General appearance: PRESENT: mild distress Eye exam: PRESENT: PERRLA Respiratory exam: PRESENT: clear to auscultation frankie Cardiovascular exam: PRESENT: +S1, +S2 GI/Abdominal exam: PRESENT: soft Neurological exam: PRESENT: alert Results Laboratory Results: 07/05/16 06:35 07/05/16 06:35 07/05/16 07/05/16 06:35 06:35 WBC 22.7 H RBC 3.57 L Hgb 10.2 L Hct 33.6 L MCV 94 MCH 28.6 MCHC 30.4 L RDW 21.9 H Plt Count 279 Seg Neutrophils % Not Reportable Lymphocytes % Not Reportable Monocytes % Not Reportable Eosinophils % Not Reportable Basophils % Not Reportable Absolute Neutrophils Not Reportable Absolute Lymphocytes Not Reportable Absolute Monocytes Not Reportable Absolute Eosinophils Not Reportable Absolute Basophils Not Reportable Sodium 135.4 L Potassium 3.1 L Chloride 99 Carbon Dioxide 24 Anion Gap 12 BUN 40 H Creatinine 2.80 H Est GFR ( Amer) 22 L Est GFR (Non-Af Amer) 19 L Glucose 86 Calcium 7.6 L 05/29/16 05/30/16 05/31/16 23:45 05:55 05:15 Creatine Kinase 31 CK-MB (CK-2) 1.81 1.71 Troponin I 0.069 0.094 05/31/16 05:15 Creatine Kinase CK-MB (CK-2) 1.46 Troponin I 0.079 Impressions: Chest/Abdomen CTA 05/29/16 18:00 IMPRESSION: No evidence for pulmonary embolic disease. Extensive chronic appearing changes as noted above. Small right pleural effusion is again identified which appears slightly larger than on the previous study. The previously described rounded masslike density in the right lower lobe is again identified. There is a central somewhat low density area and the possibility of a necrotic neoplasm or developing lung abscess cannot be excluded. Large pericardial effusion is again identified. Other findings as noted above Modified Barium Swallow 06/11/16 00:00 IMPRESSION: FLASH LARYNGEAL PENETRATION FROM RESIDUALS, WITHOUT ASPIRATION, SEEN WITH PUREED CONSISTENCY.PLEASE SEE SPEECH PATHOLOGIST REPORT FOR OTHER FINDINGS AND RECOMMENDATIONS. Chest X-Ray 06/11/16 06:00 IMPRESSION: NO CHANGE IN APPEARANCE OF THE CHEST Head CT 06/23/16 01:35 IMPRESSION: Prominent relative low density areas in the periventricular white matter in both parietal regions as noted above. Differential possibilities are as noted above. MRI may be of value for further evaluation. Other findings as noted above. Head MRI 06/24/16 00:00 IMPRESSION: SEVERAL LOCULATED CYSTIC LESIONS IN THE CEREBRAL HEMISPHERES BILATERALLY WITH ASSOCIATED VASOGENIC EDEMA IN THE WHITE MATTER. THIS CONDITION APPEARS TO HAVE DEVELOPED FAIRLY RAPIDLY BASED ON A NORMAL HEAD CT ON 05/18/2016. FINDINGS MAY BE DUE TO INFECTIOUS ETIOLOGY, POSSIBLE ATYPICAL ORGANISM, WITH DEVELOPMENT OF BRAIN ABSCESSES. ACUTE INFLAMMATORY PROCESS COULD BE ANOTHER POSSIBILITY. MALIGNANCY SUCH METASTATIC DISEASE IS LESS LIKELY. Assessment & Plan - Diagnosis (1) Acute hypoxemic respiratory failure Is this a current diagnosis for this admission?: Yes (2) Lung cancer Qualifiers: Laterality: unspecified laterality Lung location: unspecified part of lung Qualified Code(s): C34.90 - Malignant neoplasm of unspecified part of unspecified bronchus or lung Is this a current diagnosis for this admission?: Yes (3) Lung abscess Qualifiers: Pulmonary abscess pneumonia presence: with pneumonia Laterality: right Lung location: unspecified part of lung Qualified Code(s): J85.1 - Abscess of lung with pneumonia Is this a current diagnosis for this admission?: No (4) End stage renal disease Is this a current diagnosis for this admission?: Yes (5) Cardiac arrest Is this a current diagnosis for this admission?: Yes (6) Cardiogenic shock Is this a current diagnosis for this admission?: Yes (7) Septic shock Is this a current diagnosis for this admission?: Yes (8) Hypoglycemia Is this a current diagnosis for this admission?: Yes (9) Anorexia Is this a current diagnosis for this admission?: Yes (10) Gangrene of toe Is this a current diagnosis for this admission?: Yes (11) Malignant cachexia Is this a current diagnosis for this admission?: Yes (12) New onset seizure Is this a current diagnosis for this admission?: Yes (13) Cerebral abscess Is this a current diagnosis for this admission?: Yes (14) Esophageal stricture Is this a current diagnosis for this admission?: Yes (15) Sacral decubitus ulcer, stage IV Is this a current diagnosis for this admission?: Yes - Plan Summary Plan Summary: The prognosis is very poor, the IV antibiotic Rocephin and Flagyl was renewed
--- NOTE | 2016-07-05 19:33 | PDOC PROGRESS REPORT ---
Subjective Progress Note for:: 07/05/16 Subjective:: I saw the patient during dialysis this morning at around 8:25 AM. She claims that she is in pain especially on her back. She continues to be on tube feeds. She is also on pain medications. Physical Exam Vital Signs: Temp Pulse Resp BP Pulse Ox 98.0 F 32 L 22 H 102/78 85 L 07/05/16 15:59 07/05/16 15:59 07/05/16 15:59 07/05/16 15:59 07/05/16 15:59 Intake & Output 07/04/16 07/05/16 07/06/16 06:59 06:59 06:59 Intake Total 310 1023 950 Output Total 550 750 900 Balance -240 273 50 Weight 58.5 kg 57.6 kg Vital signs during dialysis this morning: Blood pressure 167/84, heart rate of 60, blood flow rate of 300 mL per minute, dialysate flow rate of 500 mL per minute. Exam: General appearance: PRESENT: no acute distress, cooperative, cachectic Head exam: PRESENT: atraumatic, normocephalic Eye exam: PRESENT: conjunctiva pale, PERRLA. ABSENT: scleral icterus Neck exam: ABSENT: JVD Respiratory exam: PRESENT: Diminished breath sounds. ABSENT: crackles, rales, rhonchi, unlabored, wheezes Cardiovascular exam: PRESENT: Regular rate rhythm -+S1, +S2. ABSENT: diastolic murmur, systolic murmur GI/Abdominal exam: PRESENT: normal bowel sounds, soft. PEG tube in place ABSENT : guarding, mass, tenderness Extremities exam: Improved trace bilateral lower extremity pitting edema Neurological exam: PRESENT: alert, awake, oriented to person, place and time. Skin exam: PRESENT: dry, warm, Cardiovascular exam: PRESENT: +S1, +S2, systolic murmur GI/Abdominal exam: PRESENT: normal bowel sounds, soft. ABSENT: distended, firm , tenderness Results Laboratory Results: 07/05/16 06:35 07/05/16 06:35 07/05/16 07/05/16 06:35 06:35 WBC 22.7 H RBC 3.57 L Hgb 10.2 L Hct 33.6 L MCV 94 MCH 28.6 MCHC 30.4 L RDW 21.9 H Plt Count 279 Seg Neutrophils % Not Reportable Lymphocytes % Not Reportable Monocytes % Not Reportable Eosinophils % Not Reportable Basophils % Not Reportable Absolute Neutrophils Not Reportable Absolute Lymphocytes Not Reportable Absolute Monocytes Not Reportable Absolute Eosinophils Not Reportable Absolute Basophils Not Reportable Sodium 135.4 L Potassium 3.1 L Chloride 99 Carbon Dioxide 24 Anion Gap 12 BUN 40 H Creatinine 2.80 H Est GFR ( Amer) 22 L Est GFR (Non-Af Amer) 19 L Glucose 86 Calcium 7.6 L 05/29/16 05/30/16 05/31/16 23:45 05:55 05:15 Creatine Kinase 31 CK-MB (CK-2) 1.81 1.71 Troponin I 0.069 0.094 05/31/16 05:15 Creatine Kinase CK-MB (CK-2) 1.46 Troponin I 0.079 Impressions: Chest/Abdomen CTA 05/29/16 18:00 IMPRESSION: No evidence for pulmonary embolic disease. Extensive chronic appearing changes as noted above. Small right pleural effusion is again identified which appears slightly larger than on the previous study. The previously described rounded masslike density in the right lower lobe is again identified. There is a central somewhat low density area and the possibility of a necrotic neoplasm or developing lung abscess cannot be excluded. Large pericardial effusion is again identified. Other findings as noted above Modified Barium Swallow 06/11/16 00:00 IMPRESSION: FLASH LARYNGEAL PENETRATION FROM RESIDUALS, WITHOUT ASPIRATION, SEEN WITH PUREED CONSISTENCY.PLEASE SEE SPEECH PATHOLOGIST REPORT FOR OTHER FINDINGS AND RECOMMENDATIONS. Chest X-Ray 06/11/16 06:00 IMPRESSION: NO CHANGE IN APPEARANCE OF THE CHEST Head CT 06/23/16 01:35 IMPRESSION: Prominent relative low density areas in the periventricular white matter in both parietal regions as noted above. Differential possibilities are as noted above. MRI may be of value for further evaluation. Other findings as noted above. Head MRI 06/24/16 00:00 IMPRESSION: SEVERAL LOCULATED CYSTIC LESIONS IN THE CEREBRAL HEMISPHERES BILATERALLY WITH ASSOCIATED VASOGENIC EDEMA IN THE WHITE MATTER. THIS CONDITION APPEARS TO HAVE DEVELOPED FAIRLY RAPIDLY BASED ON A NORMAL HEAD CT ON 05/18/2016. FINDINGS MAY BE DUE TO INFECTIOUS ETIOLOGY, POSSIBLE ATYPICAL ORGANISM, WITH DEVELOPMENT OF BRAIN ABSCESSES. ACUTE INFLAMMATORY PROCESS COULD BE ANOTHER POSSIBILITY. MALIGNANCY SUCH METASTATIC DISEASE IS LESS LIKELY. Assessment & Plan - Diagnosis (1) End stage renal disease Is this a current diagnosis for this admission?: YesPlan: We did dialysis today supposedly for 2 hours but patient only tolerated 1-1/2 hours, using the patient's PermCath, with for potassium bath, blood flow rate of 300 mL per minute, dialysate flow rate of 500 mL per minute, ultrafiltration 900, no heparin and Procrit with 10,000 units during dialysis intravenously. Patient requested to be off early after one and a half hours of dialysis because of pain. She otherwise tolerated dialysis. She was also given 1 amp of D50 /50 during dialysis because of relative hypoglycemia. (2) Anemia Is this a current diagnosis for this admission?: YesPlan: We will give Procrit as needed. Hemoglobin improved. (3) Hypoglycemia Is this a current diagnosis for this admission?: YesPlan: An amp of D50/ 50 given today during dialysis. (4) Malignant cachexia Is this a current diagnosis for this admission?: YesPlan: On PEG tube feedings. (5) Cerebral abscess Is this a current diagnosis for this admission?: Yes (6) Lung abscess Qualifiers: Pulmonary abscess pneumonia presence: with pneumonia Laterality: right Lung location: unspecified part of lung Qualified Code(s): J85.1 - Abscess of lung with pneumonia Is this a current diagnosis for this admission?: NoPlan: Her WBC count increased over the weekend. Patient still continues to be on IV antibiotics. Deferred to Dr. Spears. (7) Lung cancer Qualifiers: Laterality: unspecified laterality Lung location: unspecified part of lung Qualified Code(s): C34.90 - Malignant neoplasm of unspecified part of unspecified bronchus or lung Is this a current diagnosis for this admission?: Yes (8) HTN (hypertension) Qualifiers: Hypertension type: essential hypertension Qualified Code(s): I10 - Essential (primary) hypertension Is this a current diagnosis for this admission?: Yes (9) Scleroderma Is this a current diagnosis for this admission?: Yes (10) Failure to thrive Is this a current diagnosis for this admission?: YesPlan: Currently started on PEG tube feeding with Nepro. - Notes Notes: Prognosis continues to be very poor. - Time Time with patient: 15-25 minutes
[2016-07-05] MEDS ORDERED: CEFTRIAXONE 1 GM/D5W RTU 1 GM/50 ML RTUPB IV ONE (20:00)
[2016-07-05] MEDS: METRONIDAZOLE 500 MG/NS RTU 100 ML IV SCH (20:44)
[2016-07-06] MEDS: CARVEDILOL 12.5 MG TABLET PO SCH ×3 (00:03→21:53)
[2016-07-06] MEDS: HYDRALAZINE HCL 10 MG TABLET PO SCH ×4 (00:17→21:52)
[2016-07-06] MEDS: HEPARIN SOD (PORCINE) 5,000 UNIT/ML 1 ML SYRINGE SUBCUT SCH ×4 (00:18→21:53)
[2016-07-06] MEDS: NYSTATIN/DEXAMETH/DIPHEN SUSP 120 ML PO SCH ×5 (00:19→21:53)
[2016-07-06] MEDS: MORPHINE SULFATE 10 MG/ML INJ IV PRN ×4 (00:20→20:01)
[2016-07-06] MEDS: LISINOPRIL 10 MG TABLET PO SCH ×3 (00:23→21:53)
[2016-07-06] MEDS: METRONIDAZOLE 500 MG/NS RTU 100 ML IV SCH ×4 (03:02→21:52)
[2016-07-06] MEDS ORDERED: DEXTROSE 50%-WATER SYRINGE 12.5 GM/25 ML DOSE IV PRN (03:48)
[2016-07-06] MEDS ORDERED: GLUCAGON,HUMAN RECOMB 1 MG INJ IM PRN ×2 (03:48→20:47)
[2016-07-06] MEDS ORDERED: DEXTROSE 40% GEL 15 GM TUBE PO PRN ×3 (03:48→20:47)
[2016-07-06] MEDS ORDERED: DEXTROSE 40% GEL 15 GM TUBE X 2 PO PRN (03:48)
[2016-07-06] MEDS ORDERED: DEXTROSE 50%-WATER SYRINGE 25 GM/50 ML DOSE IV PRN (03:48)
[2016-07-06] MEDS: IPRATROPIUM/ALBUTEROL 0.5-2.5 MG/3 ML AMPUL NEB PRN ×2 (05:47→20:03)
[2016-07-06] MEDS: LANSOPRAZOLE 30 MG TAB.RAP.DR PO SCH (08:35)
[2016-07-06] MEDS: LEVETIRACETAM 500 MG/NACL-ISO 500 MG/100 ML RTUPB IV SCH ×2 (08:35→20:02)
[2016-07-06] MEDS: CILOSTAZOL 100 MG TABLET PO SCH ×2 (08:35→15:41)
[2016-07-06] MEDS: MEGESTROL ACETATE SUSP 400 MG/10 ML UDCUP PO SCH (09:23)
[2016-07-06] MEDS: NYSTATIN TOPICAL POWDER 15 GM TP SCH ×2 (10:08→17:56)
[2016-07-06] MEDS ORDERED: CEFTRIAXONE 1 GM/D5W RTU 1 GM/50 ML RTUPB IV SCH (18:00)
[2016-07-06] MEDS: FLUCONAZOLE 100 MG TABLET PO SCH (18:20)
[2016-07-06] MEDS: LORAZEPAM INJ 2 MG/1 ML VIAL IV PRN (18:58)
[2016-07-06] MEDS ORDERED: DEXTROSE 50%-WATER 25 GM/50 ML DISP.SYRIN IV PRN ×2 (20:47)
--- NOTE | 2016-07-06 20:48 | PDOC PROGRESS REPORT ---
Subjective Progress Note for:: 07/06/16 Subjective:: Patient's condition is very poor, had a long discussion with the family Physical Exam Vital Signs: Temp Pulse Resp BP Pulse Ox 98.3 F 95 14 152/96 H 100 07/06/16 00:00 07/06/16 08:39 07/06/16 08:39 07/06/16 08:39 07/06/16 00:06 Intake & Output 07/05/16 07/06/16 07/07/16 06:59 06:59 06:59 Intake Total 1023 1050 702 Output Total 750 1200 300 Balance 273 -150 402 Weight 57.6 kg Eye exam: PRESENT: PERRLA Respiratory exam: PRESENT: decreased breath sounds Cardiovascular exam: PRESENT: +S1, +S2 Results Laboratory Results: 07/05/16 06:35 07/05/16 06:35 05/29/16 05/30/16 05/31/16 23:45 05:55 05:15 Creatine Kinase 31 CK-MB (CK-2) 1.81 1.71 Troponin I 0.069 0.094 05/31/16 05:15 Creatine Kinase CK-MB (CK-2) 1.46 Troponin I 0.079 Impressions: Chest/Abdomen CTA 05/29/16 18:00 IMPRESSION: No evidence for pulmonary embolic disease. Extensive chronic appearing changes as noted above. Small right pleural effusion is again identified which appears slightly larger than on the previous study. The previously described rounded masslike density in the right lower lobe is again identified. There is a central somewhat low density area and the possibility of a necrotic neoplasm or developing lung abscess cannot be excluded. Large pericardial effusion is again identified. Other findings as noted above Modified Barium Swallow 06/11/16 00:00 IMPRESSION: FLASH LARYNGEAL PENETRATION FROM RESIDUALS, WITHOUT ASPIRATION, SEEN WITH PUREED CONSISTENCY.PLEASE SEE SPEECH PATHOLOGIST REPORT FOR OTHER FINDINGS AND RECOMMENDATIONS. Chest X-Ray 06/11/16 06:00 IMPRESSION: NO CHANGE IN APPEARANCE OF THE CHEST Head CT 06/23/16 01:35 IMPRESSION: Prominent relative low density areas in the periventricular white matter in both parietal regions as noted above. Differential possibilities are as noted above. MRI may be of value for further evaluation. Other findings as noted above. Head MRI 06/24/16 00:00 IMPRESSION: SEVERAL LOCULATED CYSTIC LESIONS IN THE CEREBRAL HEMISPHERES BILATERALLY WITH ASSOCIATED VASOGENIC EDEMA IN THE WHITE MATTER. THIS CONDITION APPEARS TO HAVE DEVELOPED FAIRLY RAPIDLY BASED ON A NORMAL HEAD CT ON 05/18/2016. FINDINGS MAY BE DUE TO INFECTIOUS ETIOLOGY, POSSIBLE ATYPICAL ORGANISM, WITH DEVELOPMENT OF BRAIN ABSCESSES. ACUTE INFLAMMATORY PROCESS COULD BE ANOTHER POSSIBILITY. MALIGNANCY SUCH METASTATIC DISEASE IS LESS LIKELY. Assessment & Plan - Diagnosis (1) Acute hypoxemic respiratory failure Is this a current diagnosis for this admission?: Yes (2) Lung cancer Qualifiers: Qualified Code(s): C34.90 - Malignant neoplasm of unspecified part of unspecified bronchus or lung Is this a current diagnosis for this admission?: Yes (3) Lung abscess Qualifiers: Qualified Code(s): J85.1 - Abscess of lung with pneumonia Is this a current diagnosis for this admission?: No (4) End stage renal disease Is this a current diagnosis for this admission?: Yes (5) Cardiac arrest Is this a current diagnosis for this admission?: Yes (6) Cardiogenic shock Is this a current diagnosis for this admission?: Yes (7) Septic shock Is this a current diagnosis for this admission?: Yes (8) Hypoglycemia Is this a current diagnosis for this admission?: Yes (9) Anorexia Is this a current diagnosis for this admission?: Yes (10) Gangrene of toe Is this a current diagnosis for this admission?: Yes (11) Malignant cachexia Is this a current diagnosis for this admission?: Yes (12) New onset seizure Is this a current diagnosis for this admission?: Yes (13) Cerebral abscess Is this a current diagnosis for this admission?: Yes (14) Esophageal stricture Is this a current diagnosis for this admission?: Yes (15) Sacral decubitus ulcer, stage IV Is this a current diagnosis for this admission?: Yes
[2016-07-07] MEDS: METRONIDAZOLE 500 MG/NS RTU 100 ML IV SCH ×3 (02:11→16:01)
[2016-07-07] MEDS: LORAZEPAM INJ 2 MG/1 ML VIAL IV PRN ×3 (05:22→23:59)
[2016-07-07] MEDS: MORPHINE SULFATE 10 MG/ML INJ IV PRN ×3 (05:23→16:03)
[2016-07-07] MEDS: HEPARIN SOD (PORCINE) 5,000 UNIT/ML 1 ML SYRINGE SUBCUT SCH ×2 (05:24→15:55)
[2016-07-07] MEDS: HYDRALAZINE HCL 10 MG TABLET PO SCH ×2 (05:24→15:55)
[2016-07-07] MEDS: LANSOPRAZOLE 30 MG TAB.RAP.DR PO SCH (09:43)
[2016-07-07] MEDS: CILOSTAZOL 100 MG TABLET PO SCH ×2 (09:43→16:15)
[2016-07-07] MEDS: LEVETIRACETAM 500 MG/NACL-ISO 500 MG/100 ML RTUPB IV SCH ×2 (09:46→21:38)
[2016-07-07] MEDS: NYSTATIN/DEXAMETH/DIPHEN SUSP 120 ML PO SCH ×3 (11:01→18:34)
[2016-07-07] MEDS: LISINOPRIL 10 MG TABLET PO SCH (11:01)
[2016-07-07] MEDS: CARVEDILOL 12.5 MG TABLET PO SCH (11:01)
[2016-07-07] MEDS: MEGESTROL ACETATE SUSP 400 MG/10 ML UDCUP PO SCH (11:20)
[2016-07-07] MEDS ORDERED: MORPHINE SULFATE 10 MG/ML INJ IV PRN ×2 (17:42→20:47)
--- NOTE | 2016-07-07 17:48 | PDOC PROGRESS REPORT ---
Subjective Progress Note for:: 07/07/16 Subjective:: Patient is moribund, she was not dialyzed today because the respiratory rate was 2, low blood pressure she complains of pain, patient ought to be hospice at this time of her disease, family knows patient condition is very poor, I do not see any value in continue IV antibiotic at this time, she is hardly able to talk condition is extremely poor is expected. She is not able to take by mouth she has a PEG tube in place, family not yet ready for comfort care measures which is what ought to be done at this time. I discussed with the about prognosis, is aware that patient may , the focus now is palliative care, the morphine dose be increased to 4 mg IV every 2 hours as needed because the present dose of 3 mg IV every 3 hours is not achieving full control pain. She continued to express pain despite being moribund Physical Exam Vital Signs: Temp Pulse Resp BP Pulse Ox 97.5 F 44 L 10 L 116/76 100 07/07/16 16:00 07/07/16 16:00 07/07/16 16:00 07/07/16 16:00 07/06/16 00:06 Intake & Output 07/06/16 07/07/16 07/08/16 06:59 06:59 06:59 Intake Total 1050 1376 250 Output Total 1200 600 Balance -150 776 250 Weight 57.6 kg General appearance: PRESENT: severe distress Respiratory exam: PRESENT: decreased breath sounds Cardiovascular exam: PRESENT: +S1, +S2 GI/Abdominal exam: PRESENT: soft Neurological exam: PRESENT: alert Results Laboratory Results: 07/05/16 06:35 07/05/16 06:35 05/29/16 05/30/16 05/31/16 23:45 05:55 05:15 Creatine Kinase 31 CK-MB (CK-2) 1.81 1.71 Troponin I 0.069 0.094 05/31/16 05:15 Creatine Kinase CK-MB (CK-2) 1.46 Troponin I 0.079 Impressions: Chest/Abdomen CTA 05/29/16 18:00 IMPRESSION: No evidence for pulmonary embolic disease. Extensive chronic appearing changes as noted above. Small right pleural effusion is again identified which appears slightly larger than on the previous study. The previously described rounded masslike density in the right lower lobe is again identified. There is a central somewhat low density area and the possibility of a necrotic neoplasm or developing lung abscess cannot be excluded. Large pericardial effusion is again identified. Other findings as noted above Modified Barium Swallow 06/11/16 00:00 IMPRESSION: FLASH LARYNGEAL PENETRATION FROM RESIDUALS, WITHOUT ASPIRATION, SEEN WITH PUREED CONSISTENCY.PLEASE SEE SPEECH PATHOLOGIST REPORT FOR OTHER FINDINGS AND RECOMMENDATIONS. Chest X-Ray 06/11/16 06:00 IMPRESSION: NO CHANGE IN APPEARANCE OF THE CHEST Head CT 06/23/16 01:35 IMPRESSION: Prominent relative low density areas in the periventricular white matter in both parietal regions as noted above. Differential possibilities are as noted above. MRI may be of value for further evaluation. Other findings as noted above. Head MRI 06/24/16 00:00 IMPRESSION: SEVERAL LOCULATED CYSTIC LESIONS IN THE CEREBRAL HEMISPHERES BILATERALLY WITH ASSOCIATED VASOGENIC EDEMA IN THE WHITE MATTER. THIS CONDITION APPEARS TO HAVE DEVELOPED FAIRLY RAPIDLY BASED ON A NORMAL HEAD CT ON 05/18/2016. FINDINGS MAY BE DUE TO INFECTIOUS ETIOLOGY, POSSIBLE ATYPICAL ORGANISM, WITH DEVELOPMENT OF BRAIN ABSCESSES. ACUTE INFLAMMATORY PROCESS COULD BE ANOTHER POSSIBILITY. MALIGNANCY SUCH METASTATIC DISEASE IS LESS LIKELY. Assessment & Plan - Diagnosis (1) Acute hypoxemic respiratory failure Is this a current diagnosis for this admission?: Yes (2) Lung cancer Qualifiers: Laterality: unspecified laterality Lung location: unspecified part of lung Qualified Code(s): C34.90 - Malignant neoplasm of unspecified part of unspecified bronchus or lung Is this a current diagnosis for this admission?: Yes (3) Lung abscess Qualifiers: Pulmonary abscess pneumonia presence: with pneumonia Laterality: right Lung location: unspecified part of lung Qualified Code(s): J85.1 - Abscess of lung with pneumonia Is this a current diagnosis for this admission?: No (4) End stage renal disease Is this a current diagnosis for this admission?: Yes (5) Cardiac arrest Is this a current diagnosis for this admission?: Yes (6) Cardiogenic shock Is this a current diagnosis for this admission?: Yes (7) Septic shock Is this a current diagnosis for this admission?: Yes (8) Hypoglycemia Is this a current diagnosis for this admission?: Yes (9) Anorexia Is this a current diagnosis for this admission?: Yes (10) Gangrene of toe Is this a current diagnosis for this admission?: Yes (11) Malignant cachexia Is this a current diagnosis for this admission?: Yes (12) New onset seizure Is this a current diagnosis for this admission?: Yes (13) Cerebral abscess Is this a current diagnosis for this admission?: Yes (14) Esophageal stricture Is this a current diagnosis for this admission?: Yes (15) Sacral decubitus ulcer, stage IV Is this a current diagnosis for this admission?: Yes
--- NOTE | 2016-07-07 17:57 | PDOC PROGRESS REPORT ---
Subjective Progress Note for:: 07/07/16 Subjective:: Vision seen in the hospital today. She looks extremely weak and near dying. She is got severe malignant cachexia. She is hardly able to speak even though she is awake. She is in lot of pain and she explains that is the case. She has got severe back pains and some chest pains. Denies dyspnea. Her and mother is by the bedside. He stated that she is a DO NOT RESUSCITATE but she wants everything else done Physical Exam Vital Signs: Temp Pulse Resp BP Pulse Ox 97.5 F 44 L 10 L 116/76 100 07/07/16 16:00 07/07/16 16:00 07/07/16 16:00 07/07/16 16:00 07/06/16 00:06 Intake & Output 07/06/16 07/07/16 07/08/16 06:59 06:59 06:59 Intake Total 1050 1376 250 Output Total 1200 600 Balance -150 776 250 Weight 57.6 kg General appearance: PRESENT: disheveled, thin - to the point of being cachectic Respiratory exam: PRESENT: clear to auscultation frankie, crackles. ABSENT: symmetrical, wheezes Cardiovascular exam: PRESENT: +S1, +S2, systolic murmur GI/Abdominal exam: PRESENT: normal bowel sounds, soft. ABSENT: distended, firm , tenderness Extremities exam: PRESENT: +1 edema Musculoskeletal exam: PRESENT: deformity - I'll follow hands with cyanosis and gangrene Neurological exam: PRESENT: awake, oriented to person Psychiatric exam: PRESENT: depressed Skin exam: PRESENT: dry, mottled Results Laboratory Results: 07/05/16 06:35 07/05/16 06:35 05/29/16 05/30/16 05/31/16 23:45 05:55 05:15 Creatine Kinase 31 CK-MB (CK-2) 1.81 1.71 Troponin I 0.069 0.094 05/31/16 05:15 Creatine Kinase CK-MB (CK-2) 1.46 Troponin I 0.079 Impressions: Chest/Abdomen CTA 05/29/16 18:00 IMPRESSION: No evidence for pulmonary embolic disease. Extensive chronic appearing changes as noted above. Small right pleural effusion is again identified which appears slightly larger than on the previous study. The previously described rounded masslike density in the right lower lobe is again identified. There is a central somewhat low density area and the possibility of a necrotic neoplasm or developing lung abscess cannot be excluded. Large pericardial effusion is again identified. Other findings as noted above Modified Barium Swallow 06/11/16 00:00 IMPRESSION: FLASH LARYNGEAL PENETRATION FROM RESIDUALS, WITHOUT ASPIRATION, SEEN WITH PUREED CONSISTENCY.PLEASE SEE SPEECH PATHOLOGIST REPORT FOR OTHER FINDINGS AND RECOMMENDATIONS. Chest X-Ray 06/11/16 06:00 IMPRESSION: NO CHANGE IN APPEARANCE OF THE CHEST Head CT 06/23/16 01:35 IMPRESSION: Prominent relative low density areas in the periventricular white matter in both parietal regions as noted above. Differential possibilities are as noted above. MRI may be of value for further evaluation. Other findings as noted above. Head MRI 06/24/16 00:00 IMPRESSION: SEVERAL LOCULATED CYSTIC LESIONS IN THE CEREBRAL HEMISPHERES BILATERALLY WITH ASSOCIATED VASOGENIC EDEMA IN THE WHITE MATTER. THIS CONDITION APPEARS TO HAVE DEVELOPED FAIRLY RAPIDLY BASED ON A NORMAL HEAD CT ON 05/18/2016. FINDINGS MAY BE DUE TO INFECTIOUS ETIOLOGY, POSSIBLE ATYPICAL ORGANISM, WITH DEVELOPMENT OF BRAIN ABSCESSES. ACUTE INFLAMMATORY PROCESS COULD BE ANOTHER POSSIBILITY. MALIGNANCY SUCH METASTATIC DISEASE IS LESS LIKELY. Assessment & Plan - Diagnosis (1) Acute hypoxemic respiratory failure Is this a current diagnosis for this admission?: YesPlan: On oxygen. Her heart rate is down into the mid 40s. (2) End stage renal disease Is this a current diagnosis for this admission?: YesPlan: She had a short dialysis on Tuesday. I had a lengthy discussion with the patient as well as the and her mother. I explained to her about the her current status and the fact that she is near dying. Explained to her about the cancer of the lungs with the infections and abscesses in the lungs and the abscess/metastasis in the brain. Explained to them about her slow heart rate. Advised her that if she wants everything done she would need to be transferred to the ICU for dialysis which will incur more pain in a very fragile cachectic state. She would like to think about it and let me know later on in the next 1 hours she wants dialysis of the made comfortable. Patient's and mother agreeable to this plan of action. She is a high risk candidate for dialysis. (3) Lung abscess Qualifiers: Pulmonary abscess pneumonia presence: with pneumonia Laterality: right Lung location: unspecified part of lung Qualified Code(s): J85.1 - Abscess of lung with pneumonia Is this a current diagnosis for this admission?: NoPlan: Antibiotics with no real improvement. (4) Lung cancer Qualifiers: Laterality: unspecified laterality Lung location: unspecified part of lung Qualified Code(s): C34.90 - Malignant neoplasm of unspecified part of unspecified bronchus or lung Is this a current diagnosis for this admission?: Yes (5) Septic shock Is this a current diagnosis for this admission?: Yes (7) Pulmonary fibrosis Is this a current diagnosis for this admission?: Yes (8) Scleroderma Is this a current diagnosis for this admission?: Yes (9) Anemia Is this a current diagnosis for this admission?: Yes (10) Cardiomyopathy Qualifiers: Cardiomyopathy type: unspecified Qualified Code(s): I42.9 - Cardiomyopathy, unspecified Is this a current diagnosis for this admission?: Yes (11) Malignant cachexia Is this a current diagnosis for this admission?: YesPlan: Getting worse which is unfortunate. Discussed comfort measures at length but patient wants to think about it further. (12) Hypoglycemia Is this a current diagnosis for this admission?: Yes
[2016-07-07] MEDS ORDERED: HYDROMORPHONE HCL INJ/PF 2 MG/ML AMPULE IV ONE (18:25)
[2016-07-07] MEDS: MORPHINE SULFATE 10 MG/ML INJ IV SCH (21:08)
[2016-07-08] MEDS: MORPHINE SULFATE 10 MG/ML INJ IV SCH (02:01)
[2016-07-08 02:45] VITALS: BP 129/108
--- NOTE | 2016-07-08 19:10 | Death Summary ---
Summary Date : 07/08/16 Time of :: 00:11 Autopsy: No Resuscitation Status: Do Not Resuscitate - Final Diagnosis (1) Acute hypoxemic respiratory failure Is this a current diagnosis for this admission?: Yes (2) Lung cancer Is this a current diagnosis for this admission?: Yes (3) Lung abscess Is this a current diagnosis for this admission?: No (4) End stage renal disease Is this a current diagnosis for this admission?: Yes (5) Cardiac arrest Is this a current diagnosis for this admission?: Yes (6) Cardiogenic shock Is this a current diagnosis for this admission?: Yes (7) Septic shock Is this a current diagnosis for this admission?: Yes (8) Hypoglycemia Is this a current diagnosis for this admission?: Yes (9) Anorexia Is this a current diagnosis for this admission?: Yes (10) Gangrene of toe Is this a current diagnosis for this admission?: Yes (11) Malignant cachexia Is this a current diagnosis for this admission?: Yes (12) New onset seizure Is this a current diagnosis for this admission?: Yes (13) Cerebral abscess Is this a current diagnosis for this admission?: Yes (14) Esophageal stricture Is this a current diagnosis for this admission?: Yes (15) Sacral decubitus ulcer, stage IV Is this a current diagnosis for this admission?: Yes (16) Sepsis Is this a current diagnosis for this admission?: Yes Hospital Course:: Patient 40-year-old female she was admitted on 05/29/2016 when she presented to the emergency room with shortness of breath, in the emergency room she was found to be hypoxemic and she was intubated she also had CTA chest done, it was negative for pulmonary embolus but showed extensive chronic changes with extensive subpleural honeycombing as well as right pleural effusion hospital course was prolonged and very uneventful on admission there was a concern that she may have lung abscess because the CTA chest that was done showed a lesion with low density central area, she was empirically treated with IV antibiotic. On May 30, 2016 2D echo was done, it showed left ventricle estimated ejection fraction of less than 20% with associated grade to the diastolic dysfunction of left ventricle there was severe global hypokinesis of left ventricle the chambers were dilated including the right ventricle, the right atrium the left atrium with associated elevated right ventricular systolic pressure with moderate pulmonary hypertension by echo criteria. She was hypotensive the blood pressure was extremely low and she required vasopressors with intravenous vasopressin and norepinephrine with phenylephrine. Patient remained a full code despite severe morbidity and will decided to transfer to tertiary care, I called [facility] for transfer she was accepted in transfer on May 30, 2016 but family refused to transfer out of this hospital and she remained a full code and she was managed in intensive care unit hospital course was very prolonged. She was extubated on oh 06/08/2016 she developed seizure on the floor initially CAT scan head was done showed some abnormality but was not specific subsequent MRI was done that showed cerebral abscess with possible metastases she was empirically treated with IV antibiotic Flagyl vancomycin and cefepime before the antibiotic was initiated patient was moribund that was the point she was made DNR status. Patient's condition continues to deteriorate she ultimately had a PEG tube inserted because of severe hypoglycemia, she had severe hypoglycemia requiring multiple therapy with intravenous 50% dextrose she also had severe pressure ulcer in the sacral she was seen by the surgeon she underwent excisional debridement of the sacral decubital ulcer. The family ultimately made her comfort care and she soon after that
== END 2016-07-08 00:11 | DRG 853 ==
LOC: ER 17:21 → UNDOADMIN 21:27 → EH 21:27 → ICU 05-30 01:13 → 4N 06-11 23:46 → ICU 06-23 12:36 → 3W 06-24 00:47 → 4S 07-05 17:27
PROVIDERS: ADMIT Internal Medicine; ATTEND Surgery
PROC: 06HM33Z Insertion of Infusion Device into Right Femoral Vein, Percutaneous Approach (ICD-10-PCS; principal; 2016-05-29)
PROC: 0BH17EZ Insertion of Endotracheal Airway into Trachea, Via Natural or Artificial Opening (ICD-10-PCS; 2016-05-29)
PROC: 3E043XZ Introduction of Vasopressor into Central Vein, Percutaneous Approach (ICD-10-PCS; 2016-05-29)
PROC: 5A1955Z Respiratory Ventilation, Greater than 96 Consecutive Hours (ICD-10-PCS; 2016-05-29)
PROC: 04HL33Z Insertion of Infusion Device into Left Femoral Artery, Percutaneous Approach (ICD-10-PCS; 2016-05-30)
PROC: 5A1D60Z (ICD-10-PCS; 2016-05-31)
PROC: 0WPGX3Z Removal of Infusion Device from Peritoneal Cavity, External Approach (ICD-10-PCS; 2016-06-07)
PROC: 02HV33Z Insertion of Infusion Device into Superior Vena Cava, Percutaneous Approach (ICD-10-PCS; 2016-06-08)
PROC: 03HC33Z Insertion of Infusion Device into Left Radial Artery, Percutaneous Approach (ICD-10-PCS; 2016-06-10)
PROC: 0DH63UZ Insertion of Feeding Device into Stomach, Percutaneous Approach (ICD-10-PCS; 2016-06-28)
PROC: 0QB10ZZ Excision of Sacrum, Open Approach (ICD-10-PCS; 2016-06-30)
DX: A41.9 Sepsis, unspecified organism (principal); R65.21 Severe sepsis with septic shock; J96.21 Acute and chronic respiratory failure with hypoxia; Z66 Do not resuscitate; N18.6 End stage renal disease; J85.1 Abscess of lung with pneumonia; L89.153 Pressure ulcer of sacral region, stage 3; G06.0 Intracranial abscess and granuloma; C34.90 Malignant neoplasm of unspecified part of unspecified bronchus or lung; I31.3 Pericardial effusion (noninflammatory); N17.9 Acute kidney failure, unspecified; T82.534A Leakage of infusion catheter, initial encounter; I42.9 Cardiomyopathy, unspecified; R64 Cachexia; E87.1 Hypo-osmolality and hyponatremia; I13.2 Hypertensive heart and chronic kidney disease with heart failure and with stage 5 chronic kidney disease, or end stage renal disease; I50.22 Chronic systolic (congestive) heart failure; T85.71XA Infection and inflammatory reaction due to peritoneal dialysis catheter, initial encounter; I73.01 Raynaud's syndrome with gangrene; C79.31 Secondary malignant neoplasm of brain; E78.5 Hyperlipidemia, unspecified; K21.9 Gastro-esophageal reflux disease without esophagitis; J84.10 Pulmonary fibrosis, unspecified; I46.9 Cardiac arrest, cause unspecified; M34.9 Systemic sclerosis, unspecified; R13.12 Dysphagia, oropharyngeal phase; R63.0 Anorexia; E16.2 Hypoglycemia, unspecified; D64.9 Anemia, unspecified; E83.42 Hypomagnesemia; B99.8 Other infectious disease; I08.1 Rheumatic disorders of both mitral and tricuspid valves; E83.51 Hypocalcemia; R56.9 Unspecified convulsions; R62.7 Adult failure to thrive; Z99.2 Dependence on renal dialysis; Z86.718 Personal history of other venous thrombosis and embolism; Z68.20 Body mass index [BMI] 20.0-20.9, adult
CPT/HCPCS: 36415; 36600; 43246; 70450; 70551; 71010; 71275; 74230; 80048; 80053; 80076; 80202; 82040; 82140; 82150; 82550; 82553; 82565; 82803; 82947; 82962; 83605; 83690; 83735; 84100; 84439; 84443; 84478; 84484; 85025; 85610; 85730; 86317; 86704; 87040; 87070; 87205; 87340; 87522; 92950; 93005; 93010; 93306; 93321; 93925; 93930; 94002; 94003; 94660; 94667; 94668; 94799; 96360; 99291; 99292; C1751; C1752; G8996-GN; G8997-GN; G8998-GN; J0171; J0610; J0690; J0696; J0743; J1100; J1160; J1170; J1450; J1610; J1642; J1644; J1815; J1953; J1956; J2060; J2250; J2270; J2310; J2405; J2543; J2704; J2765; J3010; J3370; J3475; J3480; J3490; J7030; J7060; J7620; Q4081; S0164